=== PATIENT | female | born 1990 | race Caucasian/White ===

== ENCOUNTER → 2017-08-09 10:07 | Outpatient (CLI) | payer MEDICAID, SELFPAY ==
--- NOTE | 2017-08-09 12:59 | NEURO ---
NCS and/or EMG Patient Report Ordering Doctor: Devaughn Walters DATE OF SERVICE: 08/09/17 Jamar Jameson is a 26 year old female who presents for electrodiagnostic testing of the right upper limb. She has chief complaint of numbness and tingling in the right hand, primarily the third and fourth digits. Electrodiagnostic findings: On nerve conduction study, the right median motor nerve demonstrates normal distal latency amplitude and conduction velocity. Normal right ulnar motor response. Normal median ulnar F waves. Prolonged right median sensory distal latencies noted prolonged right median palmar response. Normal right ulnar and radial sensory responses. On needle EMG, all muscles tested in the right upper limb show no evidence of denervation with normal motor unit action potentials. Electrodiagnostic impression: This is an abnormal study. 1. Electrodiagnostic findings demonstrate right-sided median mononeuropathy. This is consistent with a mild right carpal tunnel syndrome. If any further questions, please not hesitate contact me.
== END ==
PROVIDERS: Visit Provider Orthopaedic Surgery
DX: G56.01 Carpal tunnel syndrome, right upper limb (principal)
CPT/HCPCS: 95886; 95910

== ENCOUNTER 2017-10-12 13:36 | Emergency (ER) | payer MEDICAID, SELFPAY ==
[2017-10-12 13:39] VITALS: BP 126/72; PULSE 96; RESP 18; TEMP 36.9; O2SAT 98; BMI 36.2
[2017-10-12] MEDS: HYDROmorphone 1 MG/ML Syringe IM (14:00)
--- NOTE | 2017-10-12 14:52 | ED.VISSUMM ---
- ER Visit Summary Date of Service: 10/12/17 Chief Complaint: [Abscess to forehead] History of Present Illness: The patient is a 27 F [presents to the emergency department with complaint of swelling to her forehead. Patient states that she was seen 2 days ago at [facility] and had the abscess the roof and patient was started on Bactrim. Patient this morning woke up in her left eye was swollen. She comes in for further evaluation. She denies any fever.] Physical Examination: [HEENT-PERRLA, EOMI. Cranial nerves II through XII grossly intact. TMs clear. Mucous membranes moist. No adenopathy. Patient has a soft tissue abscess over the left frontal scalp which is the roof and there is purulent debris extruding from the abscess. Area is tender to palpation. There is some faint erythema surrounding the suspected abscess. Patient is noted to have edema of the upper and lower eyelids on the left. No facial cellulitis. Cardiovascular-regular rate and rhythm without murmur or ectopy Lungs-clear to auscultation, chest wall stable without crepitus or subcu emphysema Abdomen-normoactive bowel sounds, soft, nontender, no rebound or rigidity, no peritoneal signs. Extremities-intact ?4, normal range of motion, normal pulses, atraumatic] Test Results: [None indicated] Emergency Department Course and Treatment: [I attempted to push on the suspected abscess to see if we can express any further purulent debris however patient did not tolerate this very well I did medicate her with a milligram of Dilaudid as she did not want me to locally anesthetize the area initially. Patient subsequently allowed me to push on the abscess and initially moderate amount of purulent debris was expressed however that she asked me to locally anesthetize the area and I used lidocaine total of 3 cc. Wound was cleansed with saline and using an 11 blade I made a 2 cm incision into the most fluctuant portion of the suspected abscess and again large amount of purulent debris expressed. I used curved hemostats to undermine the soft tissues. I irrigated the wound with saline. Patient tolerated procedure well.] Treatment Plan: [Patient will be started on Keflex and she is advised to continue with her Bactrim.] Disposition: [Discharged home in stable condition] Impression: [Soft tissue abscess forehead-with incision and drainage] This note was generated with Dragon dictation software. It may contain incorrect words, spelling, and punctuation that were not noted in review of the chart prior to signing ED Disposition - Plan for ED Patient: Chief Complaint: Abscess Referrals: Care Physician,No Primary [Primary Care Provider] -
--- NOTE | 2017-10-12 14:59 | ED.DEP ---
ED Disposition - Plan for ED Patient: Chief Complaint: Abscess Instructions: ED Abscess IandD Prescriptions: Cephalexin [Keflex] 500 mg PO Q6 #40 cap Referrals: Care Physician,No Primary [Primary Care Provider] - Mervin Angulo MD [STAFF PHYSICIAN] - 5-7 Days
[2017-10-12] MEDS: Cephalexin 250 MG Capsule 500 MG PO (15:12)
--- NOTE | 2017-10-12 15:13 | ED.DEP ---
ED Disposition - Plan for ED Patient: Chief Complaint: Abscess Instructions: ED Abscess IandD Prescriptions: Hydrocodone Bitart/Apap 5-325 [[place] 5MG-325MG] 1 tab PO Q4H PRN PRN 2 Days #10 tab PRN Reason: Pain Cephalexin [Keflex] 500 mg PO Q6 #40 cap Referrals: Mervin Angulo MD [STAFF PHYSICIAN] - 5-7 Days Care Physician,No Primary [Primary Care Provider] -
[2017-10-12 15:15] VITALS: BP 140/76; PULSE 90; RESP 16; O2SAT 100
== END 2017-10-12 15:16 | disposition home or self-care (01) ==
LOC: ED 15:02
PROVIDERS: Emergency Provider Emergency Medicine
DX: L02.01 Cutaneous abscess of face (principal); Z72.0 Tobacco use
CPT/HCPCS: 10060; 96372; 99284

== ENCOUNTER 2018-05-25 10:44 | Emergency (ER) | payer MEDICAID, SELFPAY ==
[2018-05-25 10:45] VITALS: BP 125/71; PULSE 69; RESP 16; TEMP 36.6; O2SAT 100; BMI 39.4
--- NOTE | 2018-05-25 11:29 | ED.VISSUMM ---
- ER Visit Summary Date of Service: 05/25/18 Chief Complaint: Rash History of Present Illness: The patient is a 27 F with a one-week history of red itchy rash to the right groin line and along her abdominal skin fold. Patient believes she may have ringworm. She is status post gastric bypass and has dropped a lot of weight. She is currently undergoing evaluation to have some of the extra skin removed. Patient be this is what causes the irritation and rash. Physical Examination: Vital signs unremarkable. Patient sitting upright in bed no acute distress. Heart is regular rate and rhythm. Lungs sounds clear. Abdomen is soft nontender. Skin examination reveals faint erythematous dry rash along the groin line on the right. This is consistent with tinea cruris. Test Results: [] Emergency Department Course and Treatment: Patient be given triamcinolone cream to apply topically. She was advised that this would take a few weeks to clear up. There is no evidence of secondary bacterial infection Treatment Plan: [] Disposition: Discharge Impression: Tinea cruris This note was generated with Dealer[employer] dictation software. It may contain incorrect words, spelling, and punctuation that were not noted in review of the chart prior to signing ED Disposition - Plan for ED Patient: Disposition: Home or Assisted Living Instructions: ED Candidiasis Cutaneous Prescriptions: Triamcinolone 0.5% Cream [Kenalog] 1 applic TOPICAL BID #1 tube Referrals: Radhames Gayle MD [STAFF PHYSICIAN] - As Needed
--- NOTE | 2018-05-25 11:34 | DCINST.ED_ITS ---
ED Disposition - Plan for ED Patient: Disposition: Home or Assisted Living Instructions: ED Candidiasis Cutaneous Prescriptions: Triamcinolone 0.5% Cream [Kenalog] 1 applic TOPICAL BID #1 tube Referrals: Radhames Gayle MD [STAFF PHYSICIAN] - As Needed
[2018-05-25 13:11] VITALS: TEMP 36.6
== END 2018-05-25 13:14 | disposition home or self-care (01) ==
PROVIDERS: Emergency Provider Emergency Medicine
DX: B35.6 Tinea cruris (principal); Z98.84 Bariatric surgery status; Z72.0 Tobacco use
CPT/HCPCS: 99282

== ENCOUNTER 2018-10-09 17:30 | Emergency (ER) | payer MEDICAID, SELFPAY ==
[2018-10-09 17:33] VITALS: BP 142/64; PULSE 90; RESP 85; TEMP 36.2; O2SAT 96; BMI 36.1
[2018-10-09 18:18] LABS: Absolute Lymphocyte Count 1.76 X10^3/ul (0.83-4.51); Absolute Neutrophil Count 6.6 X10^3/uL (2.0-7.7); Basophil# 0.04 X10^3/uL; Basophil% 0.4 % (0-1); Eosinophil# 0.25 X10^3/uL; Eosinophils% 2.7 % (0-5); Hematocrit 30.2 % (37-47); Hemoglobin 9.2 g/dl (12.0-15.0); Lymphocyte # 1.76 X10^3/ul (4.0); Lymphocyte % 18.9 % (19-41); Mean Corp Hgb Conc 30.5 g/gl (32-36); Mean Corpuscular Hgb 23.2 pg (27.0-32.0); Mean Corpuscular Volume 76.3 fL (81-99); Mean Platelet Vol. 9.4 fl (6.2-12.0); Monocyte# 0.63 X10^3/uL; Monocyte% 6.8 % (0-10); Neutrophil # 6.59 X10^3/uL (2.7-7.7); Platelet Count 337 K/mm3 (150-450); RBC Distribution Width CV 15.8 % (11.6-14.6); RBC Distribution Width SD 43.6 fl (35.1-43.9); Red Blood Count 3.96 M/mm3 (4.2-5.4); White Blood Count 9.3 K/mm3 (4.4-11.0)
[2018-10-09 18:20] LABS: Internal QC Validated? YES +Cl - CLEAR BKGD; Pregnancy, Serum, hCG Quali. NEGATIVE Negative
[2018-10-09 18:22] LABS: POSITIVE COUNT NO; POSITIVE DIFFERENTIAL NO; POSITIVE MORPHOLOGY NO
[2018-10-09 18:25] LABS: Anion Gap 6 (5-15); BUN 15 mg/dL (7-18); BUN/Creat Ratio 26.1 RATIO (10-20); Calcium,Total 8.7 mg/dL (8.5-10.1); Chloride 112 mmol/L (98-107); Creatinine, Serum 0.58 mg/dL (0.55-1.02); EST Glomerular Filtration Rate 132 mL/min (>60); Est Glom Filt Rate - Afr Amer 160 mL/min (>60); Glucose 91 mg/dL (74-106); Potassium 3.9 mmol/L (3.5-5.1); Sodium Level 142 mmol/L (136-145)
[2018-10-09] MEDS: Acetaminophen 500 MG Tablet 1000 MG PO (18:26)
[2018-10-09 18:27] LABS: Amphetamine Urine VISTA POSITIVE (<1000 ng/mL); Barbiturate Urine VISTA NEGATIVE (< 200 ng/mL); Benzodiazepine Urine VISTA NEGATIVE (< 200 ng/mL); Cocaine Urine VISTA NEGATIVE (< 300 ng/mL); Ecstacy Urine VISTA NEGATIVE (< 500 ng/mL); Methadone Urine VISTA NEGATIVE (< 300 ng/mL); PCP Urine VISTA NEGATIVE (< 25 ng/mL); THC Urine VISTA NEGATIVE (< 50 ng/mL); Vista UDS pH Range 5
[2018-10-09 18:31] LABS: Alcohol, Blood (Medical)-Serum < 3.0 mg/dL
[2018-10-09 18:40] VITALS: RESP 16
--- NOTE | 2018-10-09 18:48 | ED.RN ---
REPORT GIVEN TO [facility]
--- NOTE | 2018-10-09 18:54 | ED.VISSUMM ---
- ER Visit Summary Date of Service: 10/09/18 Chief Complaint: Suicidal ideation History of Present Illness: The patient is a 28 F presenting with suicidal ideation. Patient states she has been depressed. She has been out of her medication for the past week. She takes Paxil and Seroquel. She called the counseling center. They advised her they were unable to refill her medications over the phone. She states she has medications that are locked in an apartment that she cannot get to. They were prescribed by the [place]. She does have a history of previous suicide attempt in 2018 with overdose on Seroquel. She admits to methamphetamine abuse. Physical Examination: Vitals are stable. Patient is afebrile. Alert no acute distress. HEENT exam is unremarkable. Neck is supple. Lungs are clear and equal bilaterally. Heart is regular rate and rhythm. Abdomen is soft nontender nondistended. Extremities are unremarkable. Skin is warm and dry. No focal neurologic deficit. Depressed affect. Suicidal ideation Remainder of exam is unremarkable. Emergency Department Course and Treatment: CBC normal except for hemoglobin 9.2. Chemistries unremarkable. hCG negative. Tox positive for amphetamine. Alcohol negative. Discussed with counseling center for evaluation. Disposition: Per counseling center Impression: Suicidal ideation This note was generated with Yeex[employer] dictation software. It may contain incorrect words, spelling, and punctuation that were not noted in review of the chart prior to signing ED Disposition - Plan for ED Patient: Referrals: Care Physician,No Primary [Primary Care Provider] -
[2018-10-09 20:16] VITALS: RESP 13
[2018-10-09 21:10] VITALS: BP 113/47; PULSE 83; RESP 18; TEMP 36.9; O2SAT 96
[2018-10-09] MEDS: QUEtiapine 25 MG Tablet 75 MG PO (22:06)
[2018-10-09 22:12] VITALS: RESP 14
--- NOTE | 2018-10-09 22:21 | EKG12_ITS ---
Test Reason : Blood Pressure : / mmHG Vent. Rate : 073 BPM Atrial Rate : 073 BPM P-R Int : 162 ms QRS Dur : 088 ms QT Int : 392 ms P-R-T Axes : 053 068 026 degrees QTc Int : 431 ms Normal sinus rhythm Normal ECG Confirmed by SHAHRIAR ALCOCER, SAV ([id number]), photographic editor AMRIT HENLEY ([id number]) on 10/12/2018 10:52:30 AM Referred By: TL Confirmed By:TISH BESS MD
--- NOTE | 2018-10-09 22:24 | ED.RN ---
NO OLD EKGS IN MUSE
[2018-10-09 22:27] LABS: White Blood Cells 0 SEEN /hpf (0-5)
[2018-10-09 22:28] LABS: Bacteria 0 SEEN /hpf (None Seen); Red Blood Cells-Urine 0 SEEN /hpf (0-5)
[2018-10-09 22:30] LABS: Color, Urine Yellow (Yellow); Glucose, Dipstick Normal (Normal); Ketone-Dipstick Negative (Negative); Leukocyte Esterase-Dipstick 25 /ul (Negative); Nitrite-Dipstick Negative (Negative); Occult Blood-Urine Negative /ul (Negative); Protein-Dipstick 15 mg/dl (Negative); Specific Gravity, Urine 1.025 (1.002-1.030); Urine Clarity Clear (Clear); Urine Urobilinogen 4 mg/dl (Normal)
[2018-10-09 22:33] LABS: Urine Bilirubin Dipstick 1 mg/dL (Negative)
[2018-10-09 22:42] LABS: AST(SGOT) 14 U/L (15-37); Alanine Aminotransfer ALT/SGPT 16 U/L (13-56); Albumin, Serum 3.6 g/dL (3.2-5.0); Alkaline Phosphatase 80 U/L (45-117); Bilirubin, Direct 0.09 mg/dL (0.00-0.30); Globulin 3.4 g/dL (2.2-4.2)
[2018-10-09 22:47] LABS: Squamous Epithelial Cells - UA 0-5 SEEN /hpf (5-10)
[2018-10-09 22:49] LABS: Calcium Oxalate Crystals Ur 2+ /hpf (<or=2+); Mucous, Urine 2+ /hpf (<or=2+)
[2018-10-09 23:26] VITALS: RESP 13
[2018-10-10] VITALS (11 sets, daily range): BP systolic 104–120; BP diastolic 55–63; PULSE 62–95; RESP 14–18; O2SAT 98–100
--- NOTE | 2018-10-10 01:05 | ED.RN ---
AT 2200 [facility] CALLED THIS RN TO REQUEST LIVER PROFILE, COMPLETE UA AND EKG. DR. PIKE INFORMED. RESULTS PENDING. WILL CONTINUE TO MONITOR.
--- NOTE | 2018-10-10 04:46 | ED.RN ---
SEE DOWNTIME DOCUMENTATION FROM 0200 UNTIL [id number]
--- NOTE | 2018-10-10 09:27 | NURSING ---
CALLED [facility]. TALKED TO ASHLYN. NO UPDATES.
--- NOTE | 2018-10-10 09:27 | ED.RN ---
0800: pt sleeping without noted distress. Sitter in room.
--- NOTE | 2018-10-10 09:33 | NURSING ---
ANT, CRISIS, CALLED. PATIENT IS ACCEPTED AT [facility], BUT HAS A COUPLE PEOPLE AHEAD OF HER
[2018-10-10] MEDS: QUEtiapine 25 MG Tablet 75 MG PO (12:29)
--- NOTE | 2018-10-10 17:44 | NURSING ---
CALLED [facility] FOR AN UPDATE.
--- NOTE | 2018-10-10 18:04 | NURSING ---
CALLED [facility] FOR TRANSPORT. HALF HOUR ETA
== END 2018-10-10 18:36 ==
PROVIDERS: Emergency Provider Emergency Medicine
DX: R45.851 Suicidal ideations (principal); F32.9 Major depressive disorder, single episode, unspecified; Z91.5 Personal history of self-harm; F15.10 Other stimulant abuse, uncomplicated; Z79.899 Other long term (current) drug therapy; Z72.0 Tobacco use
CPT/HCPCS: 36415; 80048; 80076; 80307; 80320; 81001; 84703; 85025; 93005; 99284; G0480

== ENCOUNTER 2018-12-05 17:18 | Emergency (ER) | payer SELFPAY ==
[2018-12-05 17:19] VITALS: BP 139/71; PULSE 70; RESP 16; TEMP 36.1; O2SAT 100; BMI 33.2
--- NOTE | 2018-12-05 17:41 | ED.VISSUMM ---
- ER Visit Summary Date of Service: 12/05/18 Chief Complaint: Epigastric abdominal pain History of Present Illness: The patient is a 28 F history of prior gastric bypass and cholecystectomy. And a gastric bypass done around [address] Silvestre at [facility]. Patient had a postop ulcer that was diagnosed by endoscopy. She states she has pain almost daily for the last 3 years. Also has nausea and vomiting. No fever. No diarrhea. No melena. No this. She denies any abdominal trauma. Physical Examination: Young female. No acute distress. Vital signs are stable and afebrile. Patient H EENT exam unremarkable. Neck nontender. Lungs clear to auscultation bilaterally. Heart regular rhythm no murmur. Abdomen is soft. Epigastric tenderness. No rebound, guarding or rigidity. No hernias or masses. Nondistended. No signs of obstruction. Extremities patient moves all 4. Neurovascular intact. Neurologically she is awake and alert. Test Results: CBC shows no acute abnormality. White count of 6. Hemoglobin 12. Electrolytes normal. Normal creatinine gap. Normal liver enzymes. Normal lipase. Emergency Department Course and Treatment: Treated with IV fluids, Zofran, morphine and Protonix p.o. Repeat exam patient is doing well at 1905. Abdomen is benign. She and I discussed all of her test results and is currently being discharged home. Treatment Plan: Started on Protonix. Follow-up as needed. Disposition: Discharge Impression: Acute epigastric abdominal pain of uncertain etiology Status post gastric bypass This note was generated with Nexopia dictation software. It may contain incorrect words, spelling, and punctuation that were not noted in review of the chart prior to signing ED Disposition - Plan for ED Patient: Referrals: Care Physician,No Primary [Primary Care Provider] -
[2018-12-05 18:10] LABS: Absolute Lymphocyte Count 2.59 X10^3/uL (0.83-4.51); Absolute Neutrophil Count 3.5 X10^3/uL (2.0-7.7); Basophil# 0.05 X10^3/uL; Basophil% 0.7 % (0-1); Eosinophil# 0.21 X10^3/uL; Eosinophils% 3.1 % (0-5); Hematocrit 38.7 % (37-47); Hemoglobin 12.2 g/dL (12.0-15.0); Lymphocyte # 2.59 X10^3/ul (4.0); Mean Corp Hgb Conc 31.5 g/dL (32-36); Mean Corpuscular Hgb 27.1 pg (27.0-32.0); Mean Corpuscular Volume 85.8 fL (81-99); Mean Platelet Vol. 9.7 fl (6.2-12.0); Monocyte# 0.48 X10^3/uL; NRBC Flagged by Analyzer 0 % (0-5); Neutrophil # 3.47 X10^3/uL (2.7-7.7); Neutrophil % 50.9 % (47-70); POSITIVE MORPHOLOGY YES; Platelet Count 311 K/mm3 (150-450); RBC Distribution Width CV 20.3 % (11.6-14.6); RBC Distribution Width SD 61.1 fl (35.1-43.9); Red Blood Count 4.51 M/mm3 (4.2-5.4); White Blood Count 6.8 K/mm3 (4.4-11.0)
[2018-12-05] MEDS: 0.9% Normal Saline 1,000 ML 1000 ML IV (18:11)
[2018-12-05 18:12] LABS: AST(SGOT) 10 U/L (15-37); Alanine Aminotransfer ALT/SGPT 15 U/L (13-56); Albumin, Serum 3.6 g/dL (3.2-5.0); Alkaline Phosphatase 73 U/L (45-117); Anion Gap 4 (5-15); BUN 9 mg/dL (7-18); BUN/Creat Ratio 13.8 RATIO (10-20); Bilirubin, Direct 0.12 mg/dL (0.00-0.30); Calcium,Total 8.8 mg/dL (8.5-10.1); Chloride 112 mmol/L (98-107); Creatinine, Serum 0.65 mg/dL (0.55-1.02); EST Glomerular Filtration Rate 114 mL/min (>60); Est Glom Filt Rate - Afr Amer 137 mL/min (>60); Estimated Creatinine Clearance 91.73 ml/min; Globulin 3.3 g/dL (2.2-4.2); Glucose 85 mg/dL (74-106); Lipase 49 U/L (73-393); Potassium 3.7 mmol/L (3.5-5.1); Protein, Total 6.9 g/dL (6.4-8.2); Sodium Level 142 mmol/L (136-145)
[2018-12-05] MEDS: Morphine 4 MG/ML Syringe IV (18:12)
[2018-12-05] MEDS: Ondansetron 4 MG/2 ML Vial IV (18:12)
[2018-12-05] MEDS: Pantoprazole Sodium 40 MG Tablet PO (18:15)
[2018-12-05 18:16] LABS: Differential Indicated SCAN CRITERIA MET
[2018-12-05 18:40] LABS: Platelet Estimate ADEQUATE (ADEQ); Red Cell Morphology NORM C+C NORMAL (NORM C&C)
--- NOTE | 2018-12-05 19:08 | ED.DEP ---
ED Disposition - Plan for ED Patient: Disposition: Home or Assisted Living Instructions: ABDOMINAL PAIN, Unknown Cause, (Female) Prescriptions: Pantoprazole Sodium [Protonix] 40 mg PO DAILY #30 tab Prescription Printed Referrals: Robert Weber MD [STAFF PHYSICIAN] - 1 Week if not improving Additional Instructions: Follow-up with your doctor as needed. Return if you are feeling worse. The Protonix is a medication for your stomach and will help with both an ulcer and/or gastritis. 1 pill/day.
[2018-12-05 19:20] VITALS: BP 109/45; PULSE 66; RESP 16; O2SAT 97
== END 2018-12-05 19:21 | disposition home or self-care (01) ==
PROVIDERS: Emergency Provider Emergency Medicine
DX: R10.13 Epigastric pain (principal); R11.2 Nausea with vomiting, unspecified; Z98.84 Bariatric surgery status; Z90.49 Acquired absence of other specified parts of digestive tract; Z87.11 Personal history of peptic ulcer disease; Z72.0 Tobacco use
CPT/HCPCS: 80048; 80076; 83690; 85025; 96361; 96374; 96375; 99283; J7030; J2405

== ENCOUNTER 2023-02-09 14:27 | Emergency (ER) | payer MEDICAID, SELFPAY ==
[2023-02-09 14:28] VITALS: BP 121/75; PULSE 89; RESP 18; TEMP 35.9; O2SAT 98; BMI 42.3
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
[2023-02-09] MEDS: Acetaminophen 325 MG Tablet 650 MG PO (14:56)
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
== END 2023-02-09 15:48 | disposition home or self-care (01) ==
PROVIDERS: Emergency Provider Emergency Medicine; Visit Provider Emergency Medicine
DX: S13.4XXA Sprain of ligaments of cervical spine, initial encounter (principal); R51.9 Headache, unspecified; V49.50XA Passenger injured in collision with unspecified motor vehicles in traffic accident, initial encounter; F17.210 Nicotine dependence, cigarettes, uncomplicated
CPT/HCPCS: 72040; 99282

== ENCOUNTER → 2024-08-27 | Outpatient (CLI) | payer MEDICAID, SELFPAY ==
[2024-08-27 13:02] LABS: Absolute Lymphocyte Count 2.38 X10^3/uL (0.83-4.51); Absolute Neutrophil Count 4.1 X10^3/uL (2.0-7.7); Basophil# 0.07 X10^3/uL; Eosinophil# 0.14 X10^3/uL; Hematocrit 38.2 % (37-47); Lymphocyte # 2.38 X10^3/ul (0.83-4.51); Lymphocyte % 33.2 % (19-41); Mean Corpuscular Hgb 31.9 pg (27.0-32.0); Mean Corpuscular Volume 93.6 fL (81-99); Mean Platelet Vol. 9.3 fl (6.2-12.0); Monocyte# 0.46 X10^3/uL; Monocyte% 6.4 % (0-10); NRBC Flagged by Analyzer 0 % (0-5); Neutrophil % 57.1 % (47-70); Platelet Count 297 K/mm3 (150-450); RBC Distribution Width CV 12.2 % (11.6-14.6); RBC Distribution Width SD 41.9 fl (35.1-43.9); Red Blood Count 4.08 M/mm3 (4.2-5.4); White Blood Count 7.2 K/mm3 (4.4-11.0)
[2024-08-27 15:03] LABS: Hemoglobin A1c 4.7 % (<=5.6)
[2024-08-27 15:21] LABS: ALB/GLOB Ratio 1.6 RATIO (0.9-2.4); AST(SGOT) 18 U/L (<=31); Alanine Aminotransfer ALT/SGPT 14 U/L (<=34); Albumin, Serum 4.1 g/dL (3.5-5.0); Alkaline Phosphatase 53 U/L (35-104); Anion Gap 12 (5-15); BUN 15 mg/dL (4-19); BUN/Creat Ratio 26.1 RATIO (10-20); Calcium,Total 9.4 mg/dL (7.6-11.0); Carbon Dioxide 19.6 mmol/L (21.0-32.0); Chloride 105 mmol/L (98-108); Creatinine, Serum 0.56 mg/dL (0.70-1.20); EST Glomerular Filtration Rate 123 (>60); Globulin 2.5 g/dL (2.2-4.2); Glucose 92 mg/dL (70-99); Iron 89 ug/dL (50-170); Iron Binding Capacity,Unsat 135 ug/dL (228-428); Potassium 3.9 mmol/L (3.3-5.1); Protein, Total 6.7 g/dL (5.9-8.4); Sodium Level 137 mmol/L (133-145); Total Bilirubin 0.26 mg/dL (0.00-1.30)
[2024-08-27 15:27] LABS: Iron Binding Capacity,Total 224 ug/dL (250-450); PERCENT IRON SATURATION 39.7 % (13-59)
[2024-08-27 15:47] LABS: Ferritin 70 ng/mL (22-378)
[2024-08-27 15:50] LABS: Vitamin B12 3557 pg/mL (180-914)
== END | disposition home or self-care (01) ==
LOC: VSLAB 11:46
PROVIDERS: PCP Nurse Practitioner Family; Visit Provider Nurse Practitioner Family
DX: D50.9 Iron deficiency anemia, unspecified (principal); E53.8 Deficiency of other specified B group vitamins; Z13.1 Encounter for screening for diabetes mellitus
CPT/HCPCS: 36415; 80053; 82607; 82728; 83036; 83540; 83550; 85025

== ENCOUNTER → 2024-11-14 | Outpatient (CLI) | payer MEDICAID, SELFPAY ==
[2024-11-14 16:39] LABS: Hematocrit 39.9 % (37-47); Hemoglobin 13.5 g/dL (12.0-15.0); Immature Granulocytes Count 0.020 X10^3/uL (0.0-0.0); Mean Corp Hgb Conc 33.8 g/dL (32-36); Mean Corpuscular Volume 92.6 fL (81-99); Mean Platelet Vol. 9.4 fl (6.2-12.0); NRBC Flagged by Analyzer 0 % (0-5); Platelet Count 283 K/mm3 (150-450); RBC Distribution Width CV 12.1 % (11.6-14.6); RBC Distribution Width SD 41.0 fl (35.1-43.9); Red Blood Count 4.31 M/mm3 (4.2-5.4); White Blood Count 9.6 K/mm3 (4.4-11.0)
[2024-11-14 18:00] LABS: AST(SGOT) 15 U/L (<=31); Alanine Aminotransfer ALT/SGPT 9 U/L (<=34); Albumin, Serum 4.3 g/dL (3.5-5.0); Alkaline Phosphatase 61 U/L (35-104); Anion Gap 14 (5-15); BUN 9 mg/dL (4-19); BUN/Creat Ratio 15.9 RATIO (10-20); Calcium,Total 9.8 mg/dL (7.6-11.0); Carbon Dioxide 20.7 mmol/L (21.0-32.0); Chloride 104 mmol/L (98-108); Ferritin 98 ng/mL (22-378); Globulin 2.7 g/dL (2.2-4.2); Glucose 88 mg/dL (70-99); Iron 37 ug/dL (50-170); Iron Binding Capacity,Total 252 ug/dL (250-450); Iron Binding Capacity,Unsat 215 ug/dL (228-428); Potassium 3.9 mmol/L (3.3-5.1)
--- OUTSIDE RECORDS SUMMARY | 2024-11-14 21:39 | XMS RPT_ITS | CCD ---
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 abdominal tissue is difficult to exercise with and she would like it removed now if possible and is accepting of the risk of wound healing complications. Patient reports rashes underneath her abdominal pannus as well as the need for powders which help from time to time (nystatin powder). She has pain from poorly fitting close secondary to their skin redundancy. She also has lower back pain from the pannus. She does not have any history of bleeding or clotting problems personally or within her family. No history of problems with anesthesia. 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 She has not had any children and is not interested at this time. Patient is a former smoker and quit last week. She is on Chantix. We discussed smoking cessation ROS General General: Yes good health; No fatigue, fever(s) or weight loss HENMT HENMT: No rhinitis, sore throat/mouth sore, nasal congestion, contacts or glaucoma Endo Endocrine: No thyroid disease, polydipsia, heat intolerance, cold intolerance, hepatitis or excessive urine Skin Skin: No Bleeding, bruising, changing moles or suspicious lesion Musc Musculoskeletal: No joint pain, joint stiffness, muscle weakness, back pain, osteoarthritis or Muscle aches/ myalgia Neuro Neurological: No headache(s), No lightheadedness and No numbness Cardio Cardiovascular: No chest pain, pacemaker, fatigue or shortness of breat with exertion Psych Psychiatric: No depression, claustrophobia or anxiety Resp Respiratory: No spitting up, shortness of breath, sleep apnea, asthma, emphysema, TB, Cough or Smoker Gastro Gastrointestinal: No diarrhea, constipation, blood in stool, nausea, vomiting or abdominal bloating Ramsey Hematologic: No anemia, No bleeding and No abnormal bleeding Genitourinary: No urinary frequency, blood in urine or incontinence Exam Details Abdomen No hernias present Excess abdominal tissue vertically and horizontal Minimal diastases Patient would be a good candidate for a [id number] panniculectomy. Her pannus overhangs the pubic symphysis approximately 5 cm Coding Level of Care Code Off vis,new,level 3 Diagnoses Panniculitis M79.3 Assessment and Plan (No Qualifiers) Assessment and Plan (1) Panniculitis: Status: Acute Plan: Discussed continued smoking cessation Follow-up in 5 weeks with a nicotine test I talked her about the risks, benefits, and alternatives to a panniculectomy at a BMI of 40. My cuto (more content not included)... Normal [facility] Absolute lymphocyte countOrd ered By: Falguni Shanks on 08-27-2024 Lymphocytes Auto (Unsp spec) [#/Vol] 2.38 10*3/uL 0.83-4.51 [facility] Absolute neutrophil countOrd ered By: Falguni Shanks on 08-27-2024 Neutrophils (Bld) [#/Vol] 4.1 10*3/uL 2.0-7.7 [facility] Anion gap in Serum or Plasma Ordered By: Falguni Shanks on 08-27-2024 Anion gap [Moles/Vol] 12 mmol/L 5-15 [facility] Automated lymphocyte count a s percentage of total leukocytesOrdered By: Falguni Shanks on 08-27-2024 Lymphocytes/100 WBC Auto (Unsp spec) 33.2 % 19-41 [facility] BUN/creatinine ratioOrdered By: Falguni Shanks on 08-27-2024 Urea nitrogen/Creatinine [Mass ratio] 26.1 mg/mg High 10-20 [facility] Basophil percentageOrdered B y: Falguni Shanks on 08-27-2024 Basophils/100 WBC (Bld) 1.0 % 0-1 [facility] Bilirubin, totalOrdered By: Falguni Shanks on 08-27-2024 Bilirubin [Mass/Vol] 0.26 mg/dL 0.00-1.30 [facility] CBC W/Diff, Automatedon 08-15 Absolute Lymph 2.38 X10 3/uL Normal 0.83-4.51 [facility] Comment on above: Performed By: #### L 501.9985, L503.6550, L500.4050, L503.6030, L100.0100, L503.0106 #### [facility] [address] [place], [address] Absolute Neut 4.1 X10 3/uL Normal 2.0-7.7 [facility] Comment on above: Performed By: #### L 501.9985, L503.6550, L500.4050, L503.6030, L100.0100, L503.0106 #### [facility] [address] [place], [address] Basophils/100 WBC (Bld) 1.0 % Normal 0-1 [facility] Comment on above: Performed By: #### L 501.9985, L503.6550, L500.4050, L503.6030, L100.0100, L503.0106 #### [facility] [address] [place], [address] Eosinophils/100 WBC (Bld) 2.0 % Normal 0-5 [facility] Comment on above: Performed By: #### L 501.9985, L503.6550, L500.4050, L503.6030, L100.0100, L503.0106 #### [facility] [address] [place], [address] Erythrocyte distribution width (RBC) [Ratio] 12.2 % Normal 11.6-14.6 [facility] Comment on above: Performed By: #### L 501.9985, L503.6550, L500.4050, L503.6030, L100.0100, L503.0106 #### [facility] [address] [place], [address] Hematocrit (Bld) [Volume fraction] 38.2 % Normal 37-47 [facility] Comment on above: Performed By: #### L 501.9985, L503.6550, L500.4050, L503.6030, L100.0100, L503.0106 #### [facility] [address] [place], [address] Hemoglobin (Bld) [Mass/Vol] 13.0 g/dL Normal 12.0-15.0 [facility] Comment on above: Performed By: #### L 501.9985, L503.6550, L500.4050, L503.6030, L100.0100, L503.0106 #### [facility] [address] [place], [address] IG% 0.300 Normal 0.0-0.9 [facility] Comment on above: Result Comment: IG% - Immature Granulocytes (promyelocytes, myelocytes and metamyelocytes) > 1% indicates that a LEFT SHIFT is Present. Performed By: #### L 501.9985, L503.6550, L500.4050, L503.6030, L100.0100, L503.0106 #### [facility] [address] [place], [address] Lymphocytes/100 WBC (Bld) 33.2 % Normal 19-41 [facility] Comment on above: Performed By: #### L 501.9985, L503.6550, L500.4050, L503.6030, L100.0100, L503.0106 #### [facility] [address] [place], [address] MCH (RBC) [Entitic mass] 31.9 pg Normal 27.0-32.0 [facility] Comment on above: Performed By: #### L 501.9985, L503.6550, L500.4050, L503.6030, L100.0100, L503.0106 #### [facility] [address] [place], [address] MCHC (RBC) [Mass/Vol] 34.0 g/dL Normal 32-36 [facility] Comment on above: Performed By: #### L 501.9985, L503.6550, L500.4050, L503.6030, L100.0100, L503.0106 #### [facility] [address] [place], [address] MCV (RBC) [Entitic vol] 93.6 fL Normal 81-99 [facility] Comment on above: Performed By: #### L 501.9985, L503.6550, L500.4050, L503.6030, L100.0100, L503.0106 #### [facility] [address] [place], [address] Monocytes/100 WBC (Bld) 6.4 % Normal 0-10 [facility] Comment on above: Performed By: #### L 501.9985, L503.6550, L500.4050, L503.6030, L100.0100, L503.0106 #### [facility] [address] [place], [address] Neutrophils/100 WBC (Bld) 57.1 % Normal 47-70 [facility] Comment on above: Performed By: #### L 501.9985, L503.6550, L500.4050, L503.6030, L100.0100, L503.0106 #### [facility] [address] [place], [address] Nucleated RBC (Bld) [#/Vol] 0 10*3/uL Normal 0-5 [facility] Comment on above: Performed By: #### L 501.9985, L503.6550, L500.4050, L503.6030, L100.0100, L503.0106 #### [facility] [address] [place], [address] Platelet mean volume (Bld) [Entitic vol] 9.3 fL Normal 6.2-12.0 [facility] Comment on above: Performed By: #### L 501.9985, L503.6550, L500.4050, L503.6030, L100.0100, L503.0106 #### [facility] [address] [place], [address] Platelets (Bld) [#/Vol] 297 10*3/uL Normal 150-450 [facility] Comment on above: Performed By: #### L 501.9985, L503.6550, L500.4050, L503.6030, L100.0100, L503.0106 #### [facility] [address] [place], [address] RBC (Bld) [#/Vol] 4.08 10*6/uL Low 4.2-5.4 [facility] Comment on above: Performed By: #### L 501.9985, L503.6550, L500.4050, L503.6030, L100.0100, L503.0106 #### [facility] [address] [place], [address] RDW SD 41.9 fl Normal 35.1-43.9 [facility] Comment on above: Performed By: #### L 501.9985, L503.6550, L500.4050, L503.6030, L100.0100, L503.0106 #### [facility] [address] [place], [address] WBC (Bld) [#/Vol] 7.2 10*3/uL Normal 4.4-11.0 [facility] Comment on above: Performed By: #### L 501.9985, L503.6550, L500.4050, L503.6030, L100.0100, L503.0106 #### [facility] [address] [place], [address] Carbon dioxide, total [Moles /volume] in Central venous bloodOrdered By: Falguni Shanks on 08-27-2024 CO2 [Moles/Vol] 19.6 mmol/L Low 21.0-32.0 [facility] Chloride assayOrdered By: Evelin Shanks on 08-27-2024 Chloride [Moles/Vol] 105 mmol/L 98-108 [facility] Comprehensive Metabolic Prof ilon 08-27-2024 Albumin [Mass/Vol] 4.1 g/dL Normal 3.5-5.0 [facility] Comment on above: Performed By: #### L 501.9985, L503.6550, L500.4050, L503.6030, L100.0100, L503.0106 #### [facility] [address] [place], [address] Albumin/Globulin [Mass ratio] 1.6 {ratio} Normal 0.9-2.4 [facility] Comment on above: Performed By: #### L 501.9985, L503.6550, L500.4050, L503.6030, L100.0100, L503.0106 #### [facility] [address] [place], [address] ALK PHOS 53 U/L Normal 35-104 [facility] Comment on above: Performed By: #### L 501.9985, L503.6550, L500.4050, L503.6030, L100.0100, L503.0106 #### [facility] [address] [place], [address] ALT [Catalytic activity/Vol] 14 U/L Normal <=34 [facility] Comment on above: Performed By: #### L 501.9985, L503.6550, L500.4050, L503.6030, L100.0100, L503.0106 #### [facility] [address] [place], [address] AST [Catalytic activity/Vol] 18 U/L Normal <=31 [facility] Comment on above: Performed By: #### L 501.9985, L503.6550, L500.4050, L503.6030, L100.0100, L503.0106 #### [facility] [address] [place], [address] Bilirubin [Mass/Vol] 0.26 mg/dL Normal 0.00-1.30 [facility] Comment on above: Performed By: #### L 501.9985, L503.6550, L500.4050, L503.6030, L100.0100, L503.0106 #### [facility] [address] [place], [address] BUN/CRE 26.1 RATIO High 10-20 [facility] Comment on above: Performed By: #### L 501.9985, L503.6550, L500.4050, L503.6030, L100.0100, L503.0106 #### [facility] [address] [place], [address] Calcium [Mass/Vol] 9.4 mg/dL Normal 7.6-11.0 [facility] Comment on above: Performed By: #### L 501.9985, L503.6550, L500.4050, L503.6030, L100.0100, L503.0106 #### [facility] [address] [place], [address] Chloride [Moles/Vol] 105 mmol/L Normal 98-108 [facility] Comment on above: Performed By: #### L 501.9985, L503.6550, L500.4050, L503.6030, L100.0100, L503.0106 #### [facility] [address] [place], [address] CO2 [Moles/Vol] 19.6 mmol/L Low 21.0-32.0 [facility] Comment on above: Performed By: #### L 501.9985, L503.6550, L500.4050, L503.6030, L100.0100, L503.0106 #### [facility] [address] [place], [address] Creatinine [Mass/Vol] 0.56 mg/dL Low 0.70-1.20 [facility] Comment on above: Performed By: #### L 501.9985, L503.6550, L500.4050, L503.6030, L100.0100, L503.0106 #### [facility] [address] [place], [address] GAP 12 Normal 5-15 [facility] Comment on above: Performed By: #### L 501.9985, L503.6550, L500.4050, L503.6030, L100.0100, L503.0106 #### [facility] [address] [place], [address] GFR/1.73 sq M.predicted among non-blacks MDRD (S/P/Bld) [Vol rate/Area] 123 mL/min/{1.73_m2} Normal >60 [facility] Comment on above: Result Comment: mL/m in/1.73m2 CKD-EPI Creatinine Equation (2020) Performed By: #### L 501.9985, L503.6550, L500.4050, L503.6030, L100.0100, L503.0106 #### [facility] [address] [place], [address] Globulin (S) [Mass/Vol] 2.5 g/dL Normal 2.2-4.2 [facility] Comment on above: Performed By: #### L 501.9985, L503.6550, L500.4050, L503.6030, L100.0100, L503.0106 #### [facility] [address] [place], [address] Glucose [Mass/Vol] 92 mg/dL Normal 70-99 [facility] Comment on above: Performed By: #### L 501.9985, L503.6550, L500.4050, L503.6030, L100.0100, L503.0106 #### [facility] [address] [place], [address] Potassium [Moles/Vol] 3.9 mmol/L Normal 3.3-5.1 [facility] Comment on above: Performed By: #### L 501.9985, L503.6550, L500.4050, L503.6030, L100.0100, L503.0106 #### [facility] [address] [place], [address] Sodium [Moles/Vol] 137 mmol/L Normal 133-145 [facility] Comment on above: Performed By: #### L 501.9985, L503.6550, L500.4050, L503.6030, L100.0100, L503.0106 #### [facility] [address] [place], [address] T PROT 6.7 g/dL Normal 5.9-8.4 [facility] Comment on above: Performed By: #### L 501.9985, L503.6550, L500.4050, L503.6030, L100.0100, L503.0106 #### [facility] [address] [place], [address] Urea nitrogen [Mass/Vol] 15 mg/dL Normal 4-19 [facility] Comment on above: Performed By: #### L 501.9985, L503.6550, L500.4050, L503.6030, L100.0100, L503.0106 #### [facility] [address] [place], [address] Eosinophil percentageOrdered By: Falguni Shanks on 08-27-2024 Eosinophils/100 WBC (Bld) 2.0 % 0-5 [facility] Erythrocyte distribution wid th ratioOrdered By: Falguni Shanks on 08-27-2024 Erythrocyte distribution width (RBC) [Ratio] 12.2 % 11.6-14.6 [facility] Erythrocyte distribution wid th standard deviationOrdered By: Falgunidona Shanks on 08-27-2024 Erythrocyte distribution width (RBC) [Ratio] 41.9 fl 35.1-43.9 [facility] Ferritinon 08-27-2024 Ferritin [Mass/Vol] 70 ng/mL Normal 22-378 [facility] Comment on above: Performed By: #### L 501.9985, L503.6550, L500.4050, L503.6030, L100.0100, L503.0106 #### [facility] [address] [place], [address] Glomerular filtration rate ( GFR) estimation/1.73 sq m using serum, plasma, or whole bOrdered By: Falguni Shanks on 08-27-2024 GFR/1.73 sq M.predicted among non-blacks MDRD (S/P/Bld) [Vol rate/Area] 123 mL/min/{1.73_m2} >60 [facility] Comment on above: mL/min/1.73m2 CKD-EP I Creatinine Equation (2020) Hematocrit Auto (Bld) [Volum e fraction]Ordered By: Falguni Shanks on 08-27-2024 Hematocrit (Bld) [Volume fraction] 38.2 % 37-47 [facility] Hemoglobin A1con 08-27-2024 HbA1c (Bld) [Mass fraction] 4.7 % Normal <=5.6 [facility] Comment on above: Result Comment: Norm al < 5.7 % Prediabetic 5.7 - 6.4 % Diabetic >or= 6.5 % Please note range changes. Performed By: #### L 501.9985, L503.6550, L500.4050, L503.6030, L100.0100, L503.0106 #### [facility] [address] [place], [place], [id number] Hemoglobin A1c percentageOrd ered By: Falguni Shansk on 08-27-2024 HbA1c (Bld) [Mass fraction] 4.7 % <5.7 [facility] Comment on above: Normal < 5.7 % Predi abetic 5.7 - 6.4 % Diabetic >or= 6.5 % Please note range changes. Hemoglobin measurementOrdere d By: Falguni Shanks on 08-27-2024 Hemoglobin (Bld) [Mass/Vol] 13.0 g/dL 12.0-15.0 [facility] Immature granulocytes/100 WB C Auto (Bld)Ordered By: Falguni Shanks on 08-27-2024 Immature granulocytes/100 WBC (Bld) 0.300 % 0.0-0.9 [facility] Comment on above: IG% - Immature Granu locytes (promyelocytes, myelocytes and metamyelocytes) > 1% indicates that a LEFT SHIFT is Present. Iron measurement (mass/mass) Ordered By: Falguni Shanks on 08-27-2024 Iron (Unsp spec) [Mass/Mass] 89 ug/dL 50-170 [facility] Iron+Iron Binding Capacityon 08-27-2024 TIBC 224 ug/dL Low 250-450 [facility] Comment on above: Performed By: #### L 501.9985, L503.6546, L500.4050, L503.6030, L100.0100, L503.0106 #### [facility] [address] [place], [address] Laboratory - Chemistry and C hemistry - challengeOrdered By: Falguni Shanks on 08-27-2024 AST [Catalytic activity/Vol] 18 U/L <32 [facility] MCV (mean corpuscular volume ) determinationOrdered By: Falguni Shanks on 08-27-2024 MCV (RBC) [Entitic vol] 93.6 fL 81-99 [facility] Mean corpuscular hemoglobin (MCH) determinationOrdered By: Falguni Shanks on 08-27-2024 MCH (RBC) [Entitic mass] 31.9 pg 27.0-32.0 [facility] Mean corpuscular hemoglobin concentration (MCHC) determinationOrdered By: Falguni Shanks on 08-27-2024 MCHC (RBC) [Mass/Vol] 34.0 g/dL 32-36 [facility] Mean platelet volume determi nationOrdered By: Falguni Shanks on 08-27-2024 Platelet mean volume (Bld) [Entitic vol] 9.3 fL 6.2-12.0 [facility] Monocyte percentageOrdered B y: Falguni Shanks on 08-27-2024 Monocytes/100 WBC (Bld) 6.4 % 0-10 [facility] Neutrophil percentageOrdered By: Falguni Shanks on 08-27-2024 Neutrophils/100 WBC (Bld) 57.1 % 47-70 [facility] No Panel InformationOrdered By: Falguni Shanks on 08-27-2024 Unsaturated Iron Binding Capacity 135 ug/dL Low 228-428 [facility] Nucleated red blood cell per centageOrdered By: Falguni Shanks on 08-27-2024 Nucleated RBC/100 WBC (Bld) [Ratio] 0 % 0-5 [facility] Platelet countOrdered By: Evelin Shanks on 08-27-2024 Platelets (Bld) [#/Vol] 297 10*3/uL 150-450 [facility] Potassium measurement (mass/ volume)Ordered By: Falguni Shanks on 08-27-2024 Potassium (Unsp spec) [Mass/Vol] 3.9 mmol/L 3.3-5.1 [facility] RBC Auto (Bld) [#/Vol]Ordere d By: Falguni Shanks on 08-27-2024 RBC (Bld) [#/Vol] 4.08 10*6/uL Low 4.2-5.4 [facility] Serum creatinine measurement (mass/volume)Ordered By: Falguni Shanks on 08-27-2024 Creatinine [Mass/Vol] 0.56 mg/dL Low 0.70-1.20 [facility] Serum globulin measurementOr dered By: Falguni Shanks on 08-27-2024 Globulin (S) [Mass/Vol] 2.5 g/dL 2.2-4.2 [facility] Serum glucose measurement (m ass/volume)Ordered By: Falguni Shanks on 08-27-2024 Glucose [Mass/Vol] 92 mg/dL 70-99 [facility] Serum or plasma alanine rebollar otransferase (ALT) measurementOrdered By: Falguni Shanks 08-27-2024 ALT [Catalytic activity/Vol] 14 U/L <35 [facility] Serum or plasma albumin ronni urement (mass/volume)Ordered By: Falguni Shanks 08-27-2024 Albumin [Mass/Vol] 4.1 g/dL 3.5-5.0 [facility] Serum or plasma albumin/glob ulin mass ratioOrdered By: Falguni Shanks 08-27-2024 Albumin/Globulin [Mass ratio] 1.6 {ratio} 0.9-2.4 [facility] Serum or plasma alkaline marcelo sphatase measurementOrdered By: Falguni Shanks 08-27-2024 ALP [Catalytic activity/Vol] 53 U/L 35-104 [facility] Serum or plasma calcium ronni urement (mass/volume)Ordered By: Falguni Shanks 08-27-2024 Calcium [Mass/Vol] 9.4 mg/dL 7.6-11.0 [facility] Serum or plasma ferritin negra surement (mass/volume)Ordered By: Falguni Shanks on 08-27-2024 Ferritin [Mass/Vol] 70 ng/mL 22-378 [facility] Serum or plasma iron saturat ion measurement (mass fraction)Ordered By: Falguni Shakns on 08-27-2024 Iron saturation [Mass fraction] 39.7 % 13-59 [facility] Comment on above: Previous reported re sult: 40.0 %Edited by: SARA on 08/27/24:1527 AMENDED REPORT 08/27/24 1527 IRON SATURATION previously reported as: 40.0 % Serum or plasma urea nitroge n measurement (mass/volume)Ordered By: Falguni Shanks on 08-27-2024 Urea nitrogen [Mass/Vol] 15 mg/dL 4-19 [facility] Sodium levelOrdered By: Ivan Shanks on 08-27-2024 Sodium [Moles/Vol] 137 mmol/L 133-145 [facility] Total proteinOrdered By: Luis Shanks on 08-27-2024 Protein [Mass/Vol] 6.7 g/dL 5.9-8.4 [facility] Vitamin B12on 08-27-2024 Cobalamin (Vitamin B12) [Mass/Vol] 3557 pg/mL High 180-914 [facility] Comment on above: Performed By: #### L 501.9985, L503.6550, L500.4050, L503.6030, L100.0100, L503.0106 #### [facility] [place], [address] Vitamin B12 ser/plasOrdered By: Falguni Shanks on 08-27-2024 Cobalamin (Vitamin B12) [Mass/Vol] 3557 pg/mL High 180-914 [facility] White blood cell (WBC) count Ordered By: Falguni Shanks on 08-27-2024 WBC (Bld) [#/Vol] 7.2 10*3/uL 4.4-11.0 [facility] OPERATIVE PROCEDURESon 07-08 OPERATIVE PROCEDURES [facility] OPERATIVE REPORT NAME ACCOUNT SEX AGE ADMIT DISCHARGE PT MED. RECORD# NUMBER DATE DATE TYPE ZACK JAMESON [id number] F 33 06/26/24 2 L [id number] ROOM: [facility] DATE OF : 1990 DICTATING PHYSICIAN: Preeti Avina DATE OF SURGERY: June 26, 2024 SURGEON: Preeti Avina MD EMAIL MARKETING ASSISTANT: Sanchez Jerome CSA ANESTHESIOLOGIST: Stewart Hayes CRNA ANESTHETIC: General endotracheal with 1% lidocaine and 0.5% Marcaine without epinephrine locally. PREOPERATIVE DIAGNOSIS: Back soft tissue lesion. POSTOPERATIVE DIAGNOSIS: Back soft tissue lesion. OPERATION PERFORMED: Excisional biopsy. COMPLICATIONS: None. ESTIMATED BLOOD LOSS: 7 mL. DRAINS: None. SPECIMENS: Back soft tissue lesion. SIGNIFICANT FINDINGS: The lesion measured 5 cm x 4 cm. The lesion was grossly entirely excised. The lesion was grossly consistent with adipose tissue. DESCRIPTION OF OPERATION: Following the initiation of general endotracheal anesthesia, the patient was sterilely prepped and draped in the usual sterile left lateral decubitus position. Approximately a 4 cm incision was proposed over the palpable back soft tissue mass. The incision was orientated to be parallel to the spine. The proposed incision site was anesthetized with 1% lidocaine and 0.5% Marcaine without epinephrine locally. The incision was initiated using a 15 blade scalpel. The incision was completed using electrocautery. Electrocautery was then used to dissect down to the mass. The mass was grossly consistent with adipose tissue. It was completely grossly Page 1 of 2 ZACK JAMESON Operative Report ZACK JAMESON : 1990 excised intact utilizing both electrocautery and blunt dissection. It was passed off the table and measured. It measured approximately 5 cm x 4 cm, and it was packaged to be sent to Pathology. The wound was irrigated with copious amounts of saline. Hemostasis was achieved using electrocautery. The deep soft tissue was reapproximated to obliterate the potential space using interrupted 2-0 Vicryl sutures. The dermis was reapproximated using interrupted 4-0 Vicryl sutures. The skin was closed using running 5-0 Monocryl. All instrument, needle and sponge counts were correct x2. The wounds were appropriately dressed and bandaged. The patient was then returned to the supine position, awakened, extubated, and taken to the PACU in good and stable condition. DISCHARGE INSTRUCTIONS: Disposition: Home. Diet: Regular. Activity: Regular. Medications: The patient was given Percocet as needed for pain and instructed to resume any previous home medications. Work: The patient was given an excused absence from work until July 01, 2024. Follow up with Dr. Avina in the clinic on July 12, 2024. Dictated By: Preeti Avina MD 06/26/24 08:29 JOB #: [id number] Transcribed By: geoffrey 06/26/24 08:49 Electronically signed by: E-SIGN DR. AVINA 07/08/24 12:25 Page 2 of 2 ZACK JAMESON Operative Report Normal [facility] Final Surgical Pathology Rep [facility] 06-28-2024 Final Surgical Pathology Report . Pathology Reports Accession: Collected Date/Time: Received Date/Time: Pathologist: [id number] 06/26/2024 07:50 EDT 06/27/2024 10:23 EDT MD FERN BAUER Final Surgical Pathology Report DIAGNOSIS: SOFT TISSUE, BACK, EXCISION: - LIPOMA COMMENT: [facility] [id number] CLINICAL INFORMATION: BENIGN NEOPLASM OF SOFT TISSUE OF BACK SPECIMEN: A SOFT TISSUE, BACK GROSS DESCRIPTION: All parts labelled with patient name and [id number] Received in formalin labelled back soft tissue Is a yellow smooth portion of adipose tissue measuring 4.7 x 4 x 1.5 cm. Tissue is sectioned to reveal yellow, glistening, homogeneous cut surfaces with no areas of hemorrhage or necrosis identified. RS-1 Jersey Wade, Pathologists' Actuary (ASCP) Performed by JERSEY WADE MICROSCOPIC DESCRIPTION: The microscopic examination is performed, except in the case of Gross Only. Verified by Pathology Report verified by [facility] FERN BAUER MD Sign out Date: 06/28/2024 14:04 Performing Lab: [facility], [address] [place] [address] Pathology Dept Disclaimer If ancillary studies were utilized, the following Laboratory Developed Test (LDT) disclaimer will apply: Under CLIA requirements, [facility] Pathology Laboratory is qualified to perform high complexity testing. For all ancillary stains, positive and negative controls stain appropriately. Performance characteristics of immunohistochemical and chromogenic in-situ hybridization tests have been determined by [facility] Pathology Laboratory. These tests are used for clinical purposes, They should not be regarded as investigational or for research. . Normal [facility] SERUM QUALon 06-26 EXTERNAL QC DONE? YES Normal [facility] Comment on above: Performed By: #### 2 58845 #### [facility],[address] [place] [address] INTERNAL QC PASS Normal [facility] Comment on above: Performed By: #### 2 51271 #### [facility],[address] [place], [place] [address] SER Negative Normal NEGATIVE [facility] Comment on above: Performed By: #### 2 39650 #### [facility],[address] [place] [address] Vocational Services Specialist Cytology Reporton 2024 Vocational Services Specialist Cytology Report . Pathology Reports Accession: Collected Date/Time: Received Date/Time: Pathologist: [id number] 05/10/2024 12:53 EST 05/10/2024 18:00 EST Vocational Services Specialist Cytology Report SPECIMEN: Specimen Description: Liquid Prep w/ HPV Specimen: Cervical/Endocervical Screening or Diagnostic: Screening RELEVANT HISTORY: LMP: 04/10/24 [id number] SPECIMEN ADEQUACY: SATISFACTORY FOR EVALUATION Endocervical/Transformation al zone component present INTERPRETATION/RESULTS: NEGATIVE FOR INTRAEPITHELIAL LESION OR MALIGNANCY HIGH RISK HPV TESTING: Event Code Result HPV Interp See Interp HPVN HPV Interp Text: High Risk HPV Typing: NEGATIVE HPV types 16, 18, 31, 33, 35, 39, 45, 51, 52, 56, 58, 59, 66 and 68 DNA were undetectable or below the pre-set threshold. The pierce High-Risk HPV DNA Test is not intended for use as a screening device for Pap normal women under age 30 and is not intended to substitute for regular Pap screening. The pierce High-Risk HPV DNA Test is designed to augment existing methods for the detection of cervical disease and should be used in conjunction with clinical information derived from other diagnostic and screening tests, physical examinations and full medical history in accordance with appropriate patient management procedures. NOTE: A negative result does not preclude the presence of HPV infection because results depend on adequate specimen collection, absence of inhibitors and sufficient DNA to be detected. As of: 05/16/24 11:25 EST COMMENT: This Pap Test was successfully processed and evaluated with the assistance of the [employer] ThinPrep Test Imaging System. Pathology Reports Accession: Collected Date/Time: Received Date/Time: Pathologist: [id number] 05/10/2024 12:53 EST 05/10/2024 18:00 EST Verified by Pathology report verified by [facility] Screened by: [place] Electronically signed by Christina GONZALEZ (ASCP) Sign-Out Date: 05/16/2024 11:25 Performing Lab: [facility], [address] [place] [address] Pathology Dept Disclaimer The Pap test is a screening test for cervical cancer. As evidenced by published data, it is subject to both inherent false negative and false positive results. Your patient's results should be interpreted in context with pertinent clinical history including gynecological examination. Normal [facility] HPVon 05-15-2024 HPV Interp Normal See Interp HPVN [facility] Comment on above: Order Comment: Order placed by AP_HPV_ORDER rule from [id number] Result Comment: High Risk HPV Typing: NEGATIVE HPV types 16, 18, 31, 33, 35, 39, 45, 51, 52, 56, 58, 59, 66 and 68 DNA were undetectable or below the pre-set threshold. The pierce High-Risk HPV DNA Test is not intended for use as a screening device for Pap normal women under age 30 and is not intended to substitute for regular Pap screening. The pierce High-Risk HPV DNA Test is designed to augment existing methods for the detection of cervical disease and should be used in conjunction with clinical information derived from other diagnostic and screening tests, physical examinations and full medical history in accordance with appropriate patient management procedures. NOTE: A negative result does not preclude the presence of HPV infection because results depend on adequate specimen collection, absence of inhibitors and sufficient DNA to be detected. See Interp HPVN Performed By: #### H PV #### [place] [address] HPV Source Cervix Normal [facility] Comment on above: Order Comment: Order placed by AP_HPV_ORDER rule from [id number] Performed By: #### H #### [place] [address] VAGINAL PATHOGEN DNA DIRECT PROBES[JUSTEN]on 05-14-2024 VAGINAL PATHOGEN DNA DIRECT PROBES[JUSTEN] Normal [facility] Comment on above: Result Comment: _VAG INAL PATHOGENS DNA DIRECT PROBES [CCL]_ SEE SEPARATE REPORT Performed By: #### 2 27435 #### [address] [address] GC/CHLAM AMPLIFICATION [CCL] on 05-11-2024 SEND TO IC? NO Normal [facility] Comment on above: Performed By: #### 2 96205 #### [facility],[address] [place] [address] Chlamydia trachomatis RNA Not detected Normal Not detected [facility] Comment on above: Result Comment: This FDA-approved assay has been modified to accept rectal swabs self-collected in a healthcare setting. For self-collected rectal swabs, the test was developed and its performance characteristics determined by the [facility] [place] ([facility]). It has not been cleared or approved by the FDA. -[facility] is regulated under CLIA as qualified to perform high-complexity testing. This test is used for clinical purposes. It should not be regarded as investigational or for research. SOURCE: [facility] [address] [place] [address] Nickolas Rodriguez III, M.D. [id number] Performed By: #### 2 93407 #### [facility],[address] [place] [address] Neisseria gonorrhoeae RNA Not detected Normal Not detected [facility] Comment on above: Performed By: #### 2 28490 #### [address] [address] VITAMIN B1, WHOLE BLOOD [CCL ]on 12-27-2023 Vitamin B1 (TDP), WholeBlood 174.8 nmol/L Normal 84.3-213.3 [facility] Comment on above: Result Comment: This assay measures the concentration of thiamine diphosphate (TDP), the primary active form of vitamin B1. Approximately 90 percent of vitamin B1 present in whole blood is TDP. Thiamine and thiamine monophosphate, which comprise the remaining 10 percent, are not measured. This test was developed and its performance characteristics determined by [facility] [place] ([facility]). It has not been cleared or approved by the FDA. [facility] is regulated under CLIA as qualified to perform high-complexity testing. This test is used for clinical purposes. It should not be regarded as investigational or for research. [address] [address] Nickolas Rodriguez III, M.D. [id number] Performed By: #### 2 66990 #### [address] [address] VITAMIN B6 [CCL]on 4 Vitamin B6 Plasma 50.1 nmol/L Normal 20.0-125.0 [facility] Comment on above: Result Comment: INTE RPRETIVE INFORMATION: Vitamin B6 (Pyridoxal 5-Phosphate) Pyridoxal 5'-phosphate measured in a specimen collected following an 8-hour or overnight fast accurately indicates vitamin B6 nutritional status. Non-fasting specimen concentration reflects recent vitamin intake. This test was developed and its performance characteristics determined by [facility]. It has not been cleared or approved by the [place] Food and Drug Administration. This test was performed in a CLIA certified laboratory and is intended for clinical purposes. Performed By: [facility] [address] [place] [id number] Analytics Specialist: Dennis Robles MD, PhD CLIA Number: [id number] [address] [address] Nickolas Rodriguez III, M.D. [id number] Performed By: #### 2 73635 #### [address] [address] CBC + DIFFon 12-19-2023 ANISO 1+ Normal [facility] Comment on above: Performed By: #### 2 94234 #### [facility],[address] [place] [address] Baso # 0.03 x10EE3/UL Normal 0.00 - 0.10 [facility] Comment on above: Performed By: #### 2 97633 #### [facility],[address] [place] [address] Basophils/100 WBC (Bld) 0.5 % Normal 0.0 - 2.0 [facility] Comment on above: Performed By: #### 2 82123 #### [facility],[address] [place] [address] Basophils/100 WBC (Bld) 1.0 % Normal 0.0 - 2.0 [facility] Comment on above: Performed By: #### 2 03881 #### [facility],[address] [place] [address] CBC + DIFF Normal [facility] Comment on above: Result Comment: CBC- COMPLETE BLOOD COUNT Performed By: #### 2 09599 #### [facility],[address] [place] [address] EO 2.0 % Normal 0.0 - 7.0 [facility] Comment on above: Performed By: #### 2 74583 #### [facility],[address] [place] [address] EO # 0.11 x10EE3/UL Normal 0.00 - 0.50 [facility] Comment on above: Performed By: #### 2 40826 #### [facility],[address] [place] [address] Eosinophils/100 WBC (Bld) 1.9 % Normal 0.0 - 7.0 [facility] Comment on above: Performed By: #### 2 94844 #### [facility],[address] [place] [address] Erythrocyte distribution width (RBC) [Ratio] 19.2 % High 12.0 - 15.6 [facility] Comment on above: Performed By: #### 2 12551 #### [place] [address] Hematocrit (Bld) [Volume fraction] 27.8 % Low 34.0 - 46.0 [facility] Comment on above: Performed By: #### 2 05668 #### [facility],[address] [place] [address] Hemoglobin (Bld) [Mass/Vol] 8.4 g/dL Low 12.0 - 16.0 [facility] Comment on above: Performed By: #### 2 46590 #### [place] [address] HYPOCHROM 1+ Normal [facility] Comment on above: Performed By: #### 2 14276 #### [place] [address] Lymph # 1.87 x10EE3/UL Normal 0.80 - 2.80 [facility] Comment on above: Performed By: #### 2 81228 #### [place] [address] Lymphocytes/100 WBC (Bld) 32.9 % Normal 20.0 - 45.0 [facility] Comment on above: Performed By: #### 2 50793 #### [place] [address] Lymphocytes/100 WBC (Bld) 35 % Normal 20 - 45 [facility] Comment on above: Performed By: #### 2 00848 #### [place] [address] MANUAL DIFF SEE BELOW Normal [facility] Comment on above: Performed By: #### 2 02821 #### [place] [address] MCH (RBC) [Entitic mass] 19 pg Low 27 - 33 [facility] Comment on above: Performed By: #### 2 15030 #### [facility],[address] [place] [address] MCHC 30 X10 3 Low 32 - 36 [facility] Comment on above: Performed By: #### 2 10926 #### [facility],[address] [place] [address] MCV (RBC) [Entitic vol] 64 fL Low 80 - 99 [facility] Comment on above: Performed By: #### 2 77646 #### [facility],[address] [place] [address] MICROCYTES 1+ Normal [facility] Comment on above: Performed By: #### 2 03855 #### [facility],[address] [place] [address] Cidra # 0.38 x10EE3/UL Normal 0.20 - 1.00 [facility] Comment on above: Performed By: #### 2 98398 #### [facility],[address] [place] [address] MONOS 4 % Normal 0 - 10 [facility] Comment on above: Performed By: #### 2 40265 #### [facility],[address] [place] [address] MONOS % 6.6 % Normal 0.0 - 10.0 [facility] Comment on above: Performed By: #### 2 34065 #### [facility],[address] [place] [address] Morphology Rodney (Bld) [Interp] SEE BELOW Normal [facility] Comment on above: Performed By: #### 2 17959 #### [facility],[address] [place] [address] Neut # 3.30 x10EE3/UL Normal 1.50 - 7.10 [facility] Comment on above: Performed By: #### 2 44389 #### [facility],[address] [place] [address] Neutrophils/100 WBC (Bld) 58.1 % Normal 46.0 - 76.0 [facility] Comment on above: Performed By: #### 2 34248 #### [facility],[address] [place] [address]85 PLATELET 439 x10EE3/UL Normal 150 - 450 [facility] Comment on above: Performed By: #### 2 44661 #### [facility],[address] [place] [address] Platelet mean volume (Bld) [Entitic vol] 8.3 fL Normal 6.6 - 10.5 [facility] Comment on above: Result Comment: AUTO MATED DIFFERENTIAL Performed By: #### 2 40079 #### [facility],[address] [place] [address] PLT EST NORMAL Normal [facility] Comment on above: Performed By: #### 2 23703 #### [facility],[address] [place] [address]486 RBC 4.38 x 10EE6/UL Normal 4.10 - 5.30 [facility] Comment on above: Performed By: #### 2 90602 #### [facility],[address] [place] [address] SEGS 58 % Normal 46 - 76 [facility] Comment on above: Performed By: #### 2 43242 #### [facility],[address] [place] [address] WBC 5.7 x 10EE3/UL Normal 4.5 - 10.8 [facility] Comment on above: Performed By: #### 2 77569 #### [facility],[address] [place] [address] Other RARE GIANT PLATELET Normal [facility] Comment on above: Result Comment: FEW LARGE PLATELETS Performed By: #### 2 94355 #### [facility],[address] [place] [address] CMP with eGFRon 12-19-2023 AGE 33 years Normal [facility] Comment on above: Performed By: #### 2 68626 #### [facility],[address] [place], [place] [address] Albumin [Mass/Vol] 3.3 g/dL Low 3.4 - 5.0 [facility] Comment on above: Performed By: #### 2 10261 #### [facility],[address] [place] [address] Albumin/Globulin [Mass ratio] 1.0 {ratio} Normal 0.9 - 1.6 [facility] Comment on above: Performed By: #### 2 83680 #### [facility],[address] [place] [address] ALK PHOS 64 U/L Normal 46 - 116 [facility] Comment on above: Performed By: #### 2 09919 #### [facility],[address] [place], [place] [address] ALT [Catalytic activity/Vol] 13 U/L Low 16 - 63 [facility] Comment on above: Performed By: #### 2 55916 #### [facility],[address] [place] [address] Anion gap [Moles/Vol] 10 mmol/L Normal 10 - 20 [facility] Comment on above: Performed By: #### 2 06544 #### [facility],[address] [place] [address] AST [Catalytic activity/Vol] 13 U/L Normal 13 - 39 [facility] Comment on above: Performed By: #### 2 75260 #### [facility],[address] [place] [address] B/C RATIO 14 ratio Normal 0 - 30 [facility] Comment on above: Performed By: #### 2 11875 #### [facility],[address] [place] [address]104 Bilirubin [Mass/Vol] 0.5 mg/dL Normal 0.2 - 1.0 [facility] Comment on above: Performed By: #### 2 95177 #### [facility],[address] [place] [address]36 Calcium [Mass/Vol] 8.8 mg/dL Normal 8.5 - 10.1 [facility] Comment on above: Performed By: #### 2 35066 #### [facility],[address] [place] [address] 48339 Chloride [Moles/Vol] 103 mmol/L Normal 98 - 107 [facility] Comment on above: Performed By: #### 2 40505 #### [facility],[address] [place], [place] [address] CMP with eGFR Normal [facility] Comment on above: Result Comment: COMP REHENSIVE METABOLIC PANEL Performed By: #### 2 61773 #### [facility],[address] [place] [address] CO2 [Moles/Vol] 29.0 mmol/L Normal 21.0 - 32.0 [facility] Comment on above: Performed By: #### 2 77248 #### [facility],[address] [place] [address] 13729 Creatinine [Mass/Vol] 0.58 mg/dL Normal 0.55 - 1.02 [facility] Comment on above: Performed By: #### 2 10703 #### [facility],[address] [place] [address] GFR/1.73 sq M.predicted among non-blacks MDRD (S/P/Bld) [Vol rate/Area] mL/min/{1.73_m2} Normal 60 - 999 [facility] Comment on above: Performed By: #### 2 81750 #### [facility],[address] [place] [address] Result Comment: ACCO RDING TO THE NATIONAL KIDNEY DISEASE EDUCATION PROGRAM(NKDE), A NORMAL eGFR IS A VALUE GREATER THAN OR EQUAL TO 60 ML/MIN/1.73 SQ METERS. CHRONIC KIDNEY DISEASE: <60mL/MIN/1.73 SQ METERS KIDNEY FAILURE: <15mL/MIN/1.73 SQ METERS THIS TEST SHOULD ONLY BE USED FOR PATIENTS 18 YEARS OF AGE AND OLDER. Globulin (S) [Mass/Vol] 3.4 g/dL Normal 1.5 - 3.8 [facility] Comment on above: Performed By: #### 2 02333 #### [facility],[address] [place] [address] Glucose [Mass/Vol] 85 mg/dL Normal 74 - 106 [facility] Comment on above: Performed By: #### 2 67898 #### [facility],[address] [place] [address] Potassium [Moles/Vol] 4.4 mmol/L Normal 3.5 - 5.1 [facility] Comment on above: Performed By: #### 2 07350 #### [facility],[address] [place] [address] 22913 Protein [Mass/Vol] 6.7 g/dL Normal 6.4 - 8.2 [facility] Comment on above: Performed By: #### 2 36798 #### [facility],[address] [place] [address] 52789 Sodium [Moles/Vol] 138 mmol/L Normal 136 - 145 [facility] Comment on above: Performed By: #### 2 27420 #### [facility],[address] [place] [address] 45745 Urea nitrogen [Mass/Vol] 8 mg/dL Normal 7 - 18 [facility] Comment on above: Performed By: #### 2 18847 #### [facility],[address] [place] [address] FERRITINon 12-19-2023 Ferritin [Mass/Vol] 6 ng/mL Low 8 - 388 [facility] Comment on above: Performed By: #### 2 27285 #### [facility],[address] [place], [place] [address] HIP BILAT 2+ VIEWS W/AP PELV Walker 12-19-2023 HIP BILAT 2+ VIEWS W/AP PELVIS [address] [address] Patient: ZACK JAMESON Phone#: : 1990 Age: 33 Gender: F Pt. Type: Out Account: [id number] Location: [facility] Ordering: NAYE RHODES Exam Date: 12/19/2023/11:27 Family Phys: Charge Code: [id number] Physician: Larue Order #: [id number] Dose#: PROCEDURE: X-RAY HIP BILAT MIN 2 VIEWS W/AP PELVIS COMPARISON: None. INDICATIONS: Bilateral hip pain. FINDINGS: BONES: Normal. No significant arthropathy or acute abnormality. Femoral heads are normal in contour and seated in the acetabulum. Joint spaces are maintained. SOFT TISSUES: Negative. No visible soft tissue swelling. EFFUSION: None visible. OTHER: Negative. CONCLUSION: 1. Unremarkable bilateral hip radiographs. Dictated by: Deborah Argueta MD on 12/19/2023 at 12:30 Approved by: Deborah Argueta MD on 12/19/2023 at 12:32 Normal [facility] IRON AND TIBCon 12-19-2023 %SATURATION 3 % Normal [facility] Comment on above: Performed By: #### 2 43386 #### [facility],[address] [place], [place] [address] Iron [Mass/Vol] 13 ug/dL Low 50 - 170 [facility] Comment on above: Performed By: #### 2 81277 #### [facility],[address] [place], [place] [id number] TIBC 427 ug/dl Normal 250 - 450 [facility] Comment on above: Performed By: #### 2 73287 #### [facility],[address] [place] [address] 37635 UIBC 414 ug/dL High 155 - 355 [facility] Comment on above: Performed By: #### 2 61529 #### [address] [address] T4-FREE (FREE THYROXINE)on 0 12-19-2023 Free T4 [Mass/Vol] 0.69 ng/dL Low 0.76 - 1.46 [facility] Comment on above: Result Comment: P otential of falsely elevated results when biotin concentrations are > 10 ng/mL. Performed By: #### 2 34728 #### [address] [address] TSHon 12-19-2023 TSH Qn 0.83 m[IU]/L Normal 0.35 - 3.74 [facility] Comment on above: Performed By: #### 2 22236 #### [address] [address] VITAMIN B-12on 12-19-2023 Cobalamin (Vitamin B12) [Mass/Vol] 618 pg/mL Normal 193 - 986 [facility] Comment on above: Performed By: #### 2 03907 #### [address] [address] VITAMIN D, 25 HYDROXYon VitD 43.50 ng/mL Normal 30.00 - 100 [facility] Comment on above: Result Comment: 25-O HD3 indicates both endogenous production and supplementation. 25-OHD2 is an indicator of exogenous sources, such as diet or supplementation. Therapy is based on measurement of Total 25-OHD, with levels <20 ng/mL indicative of Vitamin D deficiency, while levels between 20 ng/mL and 30 ng/mL suggest insufficiency. Optimal levels are >=30ng/mL. Vitamin D, 25-OH D3 Not Established Vitamin D, 25-OH D2 Not Established Performed By: #### 2 91595 #### [address] [address] COMPLETE BLOOD COUNTon 09-19 Erythrocyte distribution width (RBC) [Ratio] 23.1 % High 11.5-15.0 [facility] Comment on above: Performed By: #### C СВЕТЛАНА MERCADO THYR #### [facility] ([id number]) [address], [address] [place] [address] Hematocrit (Bld) [Volume fraction] 27.4 % Low 35-47 [facility] Comment on above: Performed By: #### C СВЕТЛАНА MERCADO, THYR #### [facility] ([id number]) [address], [address] [place] [address] Hemoglobin (Bld) [Mass/Vol] 8.5 g/dL Low 11.7-15.5 [facility] Comment on above: Performed By: #### C СВЕТЛАНА MERCADO THYR #### [facility] ([id number]) [address], [address] [place] [address] MCH (RBC) [Entitic mass] 18.9 pg Low 27-34 [facility] Comment on above: Performed By: #### C СВЕТЛАНА MERCADO THYR #### [facility] ([id number]) [address], [address] [place] [address] MCHC (RBC) [Mass/Vol] 31.0 g/dL Low 32-36 [facility] Comment on above: Performed By: #### Jeb MERCADO FEPWally, THYR #### [facility] ([id number]) [address], [address] [place] [address] MCV (RBC) [Entitic vol] 61 fL Low 80-100 [facility] Comment on above: Performed By: #### Jeb MERCADO FEPWally, THYR #### [facility] ([id number]) [address], [address] [place] [address] Platelet mean volume (Bld) [Entitic vol] 8.6 fL Normal 7-12 [facility] Comment on above: Performed By: #### C BC, FEPR, THYR #### [facility] ([id number]) [address], [address] [place] [address] Platelets (Bld) [#/Vol] 334 10*3/uL Normal 150-450 [facility] Comment on above: Performed By: #### C BC, FEPR, THYR #### [facility] ([id number]) [address], [address] [place] [address] RBC COUNT 4.49 X10E12/L Normal 3.80-5.20 [facility] Comment on above: Performed By: #### C BC, FEPR, THYR #### [facility] ([id number]) [address], [address] [place] [address] WBC (Bld) [#/Vol] 7.0 10*3/uL Normal 4.0-11.0 [facility] Comment on above: Performed By: #### C BC, FEPR, THYR #### [facility] ([id number]) [address], [address] [place] [address] IRON PROFILEon 09-20-2023 Iron [Mass/Vol] 19 ug/dL Low 50-170 [facility] Comment on above: Performed By: #### C BC, FEPR, THYR #### [facility] ([id number]) [address], [address] [place] [address] IRON BINDING 501 ug/dL High 250-425 [facility] Comment on above: Performed By: #### C BC, FEPR, THYR #### [facility] ([id number]) [address], [address] [place] [address] IRON SATURATION 4 % SATURATION Low 15-50 [facility] Comment on above: Performed By: #### C BC, FEPR, THYR #### [facility] ([id number]) [address], [address] [place] [address] THYROID PROFILEon 09-20-2023 Free T4 [Mass/Vol] 0.89 ng/dL Normal 0.61-1.60 [facility] Comment on above: Performed By: #### C BC, FEPR, THYR #### [facility] ([id number]) [address], [address] [place] [address] TSH 2.07 uIU/mL Normal 0.49-4.67 [facility] Comment on above: Performed By: #### C BC, FEPR, THYR #### [facility] ([id number]) [address], [address] [place] [address] Hemoglobin A1Con 08-23-2023 Glucose [Mass/Vol] 103 mg/dL Normal [facility] Comment on above: Result Comment: The ADA and AACC recommend providing the estimated average glucose result to permit better patient understanding of their HBA1c result. Performed By: #### L IPR #### [facility] [address] [place] [address] [employer] Helper: Markie Allen DO #### GLYHGB #### [address] [address] [employer]per: Ladarius Andres MD HbA1c (Bld) [Mass fraction] 5.2 % Normal 4.0-6.0 [facility] Comment on above: Performed By: #### L IPR #### [facility] [address] [place] [address] Term[employer] Ex[employer]ator Helper: Markie Allen DO #### GLYHGB #### [address] [address] [employer]per: Ladarius Andres MD Lipid Profileon 08-23-2023 Cholesterol [Mass/Vol] 104 mg/dL Normal <200 [facility] Comment on above: Result Comment: Cholesterol Guidelines: <200 Desirable 200-240 Borderline >240 Undesirable Performed By: #### L IPR #### [facility] [address] [place] [address] [employer] Ex[employer]ator Helper: Markie Allen DO #### GLYHGB #### [address] [address] [employer] Helper: Ladarius Andres MD Cholesterol in HDL [Mass/Vol] 44 mg/dL Normal >40 [facility] Comment on above: Result Comment: HDL Guidelines: <40 Undesirable 40-59 Borderline >59 Desirable Performed By: #### L IPR #### [facility] [address] [place] [address] Term[employer] Ex[employer]ator Helper: Markie Allen DO #### GLYHGB #### [address] [address] [employer] Helper: Ladarius Andres MD Cholesterol in LDL [Mass/Vol] 50 mg/dL Normal 0-130 [facility] Comment on above: Result Comment: LDL Guidelines: <100 Desirable 100-129 Near to/above Desirable 130-159 Borderline >159 Undesirable Direct (measured) LDL and calculated LDL are not interchangeable tests. Performed By: #### L IPR #### [facility] [address] [place] [address] [employer] Ex[employer]ator Helper: Markie Allen DO #### GLYHGB #### [address] [address] [employer] Helper: Ladarius Andres MD Cholesterol.total/Chol esterol in HDL [Mass ratio] 2.4 {ratio} Normal <5 [facility] Comment on above: Performed By: #### L IPR #### [facility] [address] [place] [address] [employer] Ex[employer]ator Helper: Markie Allen DO #### GLYHGB #### [facility] [address] [place] [address] Term[employer] Ex[employer]ator Helper: Ladarius Andres MD Triglyceride [Mass/Vol] 50 mg/dL Normal <150 [facility] Comment on above: Result Comment: Triglyceride Guidelines: <150 Desirable 150-199 Borderline 200-499 High >499 Very high Based on AHA Guidelines for fasting triglyceride, January 2012. Performed By: #### L IPR #### [facility] [address] [place] [address] [employer] Ex[employer]ator Helper: Markie Allen DO #### GLYHGB #### [facility] [address] [place] [address] [employer]ator Helper: Ladarius Andres MD Basic Metabolic Profon 08-20 Anion gap [Moles/Vol] 11 mmol/L Normal 9-17 [facility] Comment on above: Performed By: #### H CG, LIVP, CDP, EDTOX, BMP #### [facility] [address] [place] [address] [employer]ator Helper: Ladarius Andres MD BUN/CRE Ratio 13 Normal 9-20 [facility] Comment on above: Performed By: #### H CG, LIVP, CDP, EDTOX, BMP #### [facility] [address] [place] [address] [employer] Ex[employer]ator Helper: Ladarius Andres MD Calcium [Mass/Vol] 8.7 mg/dL Normal 8.6-10.4 [facility] Comment on above: Performed By: #### H CG, LIVP, CDP, EDTOX, BMP #### [facility] [address] [place] [address] [employer] Ex[employer]ator Helper: Ladarius Andres MD Chloride [Moles/Vol] 107 mmol/L Normal 98-107 [facility] Comment on above: Performed By: #### H CG, LIVP, CDP, EDTOX, BMP #### [facility] [address] [place] [address] [employer] Ex[employer]ator Helper: Ladarius Andres MD CO2 [Moles/Vol] 23 mmol/L Normal 20-31 [facility] Comment on above: Performed By: #### H CG, LIVP, CDP, EDTOX, BMP #### [facility] [address] [place] [address] [employer] Ex[employer]ator Helper: Ladarius Andres MD Creatinine [Mass/Vol] 0.6 mg/dL Normal 0.5-0.9 [facility] Comment on above: Performed By: #### H CG, LIVP, CDP, EDTOX, BMP #### [facility] [address] [place] [address] [employer]ator Helper: Ladarius Andres MD GFR/1.73 sq M.predicted among non-blacks MDRD (S/P/Bld) [Vol rate/Area] mL/min/{1.73_m2} Normal >60 [facility] Comment on above: Result Comment: These results are not intended for use in patients <18 years of age. eGFR results are calculated without a race factor using the 2020 CKD-EPI equation. Careful clinical correlation is recommended, particularly when comparing to results calculated using previous equations. The CKD-EPI equation is less accurate in patients with extremes of muscle mass, extra-renal metabolism of creatine, excessive creatine ingestion, or following therapy that affects renal tubular secretion. Performed By: #### H CG, LIVP, CDP, EDTOX, BMP #### [facility] [address] [place] [address] [employer] Ex[employer]ator Helper: Ladarius Andres MD Glucose [Mass/Vol] 98 mg/dL Normal 70-99 [facility] Comment on above: Performed By: #### H CG, LIVP, CDP, EDTOX, BMP #### [facility] [address] [place] [address] [employer] Helper: Ladarius Andres MD Potassium [Moles/Vol] 3.7 mmol/L Normal 3.7-5.3 [facility] Comment on above: Performed By: #### H CG, LIVP, CDP, EDTOX, BMP #### [facility] [address] [place] [address] [employer] Ex[employer]ator Helper: Ladarius Andres MD Sodium [Moles/Vol] 141 mmol/L Normal 135-144 [facility] Comment on above: Performed By: #### H CG, LIVP, CDP, EDTOX, BMP #### [facility] [address] [place] [address] [employer] Ex[employer]ator Helper: Ladarius Andres MD Urea nitrogen [Mass/Vol] 8 mg/dL Normal 6-20 [facility] Comment on above: Performed By: #### H CG, LIVP, CDP, EDTOX, BMP #### [facility] [address] [place] [address] [employer] Ex[employer]ator Helper: Ladarius Andres MD CBC with Diffon 08-21-2023 Abs. Basophil 0.07 k/uL Normal 0.00-0.20 [facility] Comment on above: Performed By: #### H CG, LIVP, CDP, EDTOX, BMP #### [facility] [address] [place] [address] [employer] Ex[employer]ator Helper: Ladarius Andres MD Abs.Imm.Granulocyte <0.03 Normal 0.00-0.30 [facility] Comment on above: Performed By: #### H CG, LIVP, CDP, EDTOX, BMP #### [facility] [address] [place] [address] [employer] Ex[employer]ator Helper: Ladarius Andres MD Abs.Neutrophil (Seg) 3.02 k/uL Normal 1.50-8.10 [facility] Comment on above: Performed By: #### H CG, LIVP, CDP, EDTOX, BMP #### [facility] [address] [place] [address] Term[employer] Ex[employer]ator Helper: Ladarius Andres MD Basophils/100 WBC (Bld) 1 % Normal 0-2 [facility] Comment on above: Performed By: #### H CG, LIVP, CDP, EDTOX, BMP #### [facility] [address] [place] [address] [employer] Ex[employer]ator Helper: Ladarius Andres MD Eosinophils (Bld) [#/Vol] 0.16 10*3/uL Normal 0.00-0.44 [facility] Comment on above: Performed By: #### H CG, LIVP, CDP, EDTOX, BMP #### [facility] [address] [place] [address] [employer] Ex[employer]ator Helper: Ladarius Andres MD Eosinophils/100 WBC (Bld) 3 % Normal 1-4 [facility] Comment on above: Performed By: #### H CG, LIVP, CDP, EDTOX, BMP #### [facility] [address] [place] [address] [employer] Ex[employer]ator Helper: Ladarius Andres MD Erythrocyte distribution width (RBC) [Ratio] 20.1 % High 11.8-14.4 [facility] Comment on above: Performed By: #### H CG, LIVP, CDP, EDTOX, BMP #### [facility] [address] [place] [address] [employer] Ex[employer]ator Helper: Ladarius Andres MD Hematocrit (Bld) [Volume fraction] 25.8 % Low 36.3-47.1 [facility] Comment on above: Performed By: #### H CG, LIVP, CDP, EDTOX, BMP #### [facility] [address] [place] [address] [employer] Ex[employer]ator Helper: Ladarius Andres MD Hemoglobin (Bld) [Mass/Vol] 6.9 g/dL Critically low 11.9-15.1 [facility] Comment on above: Performed By: #### H CG, LIVP, CDP, EDTOX, BMP #### [facility] [address] [place] [address] [employer] Ex[employer]ator Helper: Ladarius Andres MD Immature granulocytes/100 WBC (Bld) 0 % Normal 0 [facility] Comment on above: Performed By: #### H CG, LIVP, CDP, EDTOX, BMP #### [facility] [address] [place] [address] [employer] Ex[employer]ator Helper: Ladarius Andres MD Lymphocytes (Bld) [#/Vol] 1.44 10*3/uL Normal 1.10-3.70 [facility] Comment on above: Performed By: #### H CG, LIVP, CDP, EDTOX, BMP #### [facility] [address] [place] [address] [employer] Ex[employer]ator Helper: Ladarius Andres MD Lymphocytes/100 WBC (Bld) 28 % Normal 24-43 [facility] Comment on above: Performed By: #### H CG, LIVP, CDP, EDTOX, BMP #### [facility] [address] [place] [address] [employer] Ex[employer]ator Helper: Ladarius Andres MD MCH (RBC) [Entitic mass] 17.1 pg Low 25.2-33.5 [facility] Comment on above: Performed By: #### H CG, LIVP, CDP, EDTOX, BMP #### [facility] [address] [place] [address] [employer] Ex[employer]ator Helper: Ladarius Andres MD MCHC (RBC) [Mass/Vol] 26.7 g/dL Normal 25.2-33.5 [facility] Comment on above: Performed By: #### H CG, LIVP, CDP, EDTOX, BMP #### [facility] [address] [place] [address] [employer] Ex[employer]ator Helper: Ladarius Andres MD MCV (RBC) [Entitic vol] 63.9 fL Low 82.6-102.9 [facility] Comment on above: Performed By: #### H CG, LIVP, CDP, EDTOX, BMP #### [facility] [address] [place] [address] [employer] Ex[employer]ator Helper: Ladarius Andres MD Monocytes (Bld) [#/Vol] 0.45 10*3/uL Normal 0.10-1.20 [facility] Comment on above: Performed By: #### H CG, LIVP, CDP, EDTOX, BMP #### [facility] [address] [place] [address] [employer] Ex[employer]ator Helper: Ladarius Andres MD Monocytes/100 WBC (Bld) 9 % Normal 3-12 [facility] Comment on above: Performed By: #### H CG, LIVP, CDP, EDTOX, BMP #### [facility] [address] [place] [address] [employer] Ex[employer]ator Helper: Ladarius Andres MD Neutrophil (Seg) 59 % Normal 36-65 [facility] Comment on above: Performed By: #### H CG, LIVP, CDP, EDTOX, BMP #### [facility] [address] [place] [address] [employer] Ex[employer]ator Helper: Ladarius Andres MD NRBC Automated 0.0 per 100 WBC Normal 0.0 [facility] Comment on above: Performed By: #### H CG, LIVP, CDP, EDTOX, BMP #### [facility] [address] [place] [address] [employer] Ex[employer]ator Helper: Ladarius Andres MD Platelet mean volume (Bld) [Entitic vol] 9.5 fL Normal 8.1-13.5 [facility] Comment on above: Performed By: #### H CG, LIVP, CDP, EDTOX, BMP #### [facility] [address] [place] [address] [employer] Ex[employer]ator Helper: Ladarius Andres MD Platelets (Bld) [#/Vol] 381 10*3/uL Normal 138-453 [facility] Comment on above: Performed By: #### H CG, LIVP, CDP, EDTOX, BMP #### [facility] [address] [place] [address] [employer] Ex[employer]ator Helper: Ladarius Andres MD RBC (Bld) [#/Vol] 4.04 10*6/uL Normal 3.95-5.11 [facility] Comment on above: Performed By: #### H CG, LIVP, CDP, EDTOX, BMP #### [facility] [address] [place] [address] [employer] Ex[employer]ator Helper: Ladarius Andres MD WBC (Bld) [#/Vol] 5.2 10*3/uL Normal 3.5-11.3 [facility] Comment on above: Performed By: #### H CG, LIVP, CDP, EDTOX, BMP #### [facility] [address] [place] [address] [employer] Exterminator Helper: Ladarius Andres MD Drug Scr, Abuse, Uron 2023 Amphetamine(s),Ur Positive Abnormal NEG [facility] Comment on above: Result Comment: (Positive cutoff 1000 ng/mL) Performed By: #### U AX, UMICAO, STACY #### [facility] [address] [place] [address] [employer] Ex[employer]ator Helper: Ladarius Andres MD Barbiturate(s),Ur Negative Normal NEG [facility] Comment on above: Result Comment: (Positive cutoff 200 ng/mL) Performed By: #### U AX, UMICAO, STACY #### [facility] [address] [place] [address] [employer] Ex[employer]ator Helper: Ladarius Andres MD Benzodiazepine(s) Negative Normal NEG [facility] Comment on above: Result Comment: (Positive cutoff 200 ng/mL) Performed By: #### U AX, UMICAO, STACY #### [facility] [address] [place] [address] [employer] Ex[employer]ator Helper: Ladarius Andres MD Cannabinoid(s),Ur Positive Abnormal NEG [facility] Comment on above: Result Comment: (Positive cutoff 50 ng/mL) Performed By: #### U AX, UMICAO, STACY #### [facility] [address] [place] [address] Term[employer] Ex[employer]ator Helper: Ladarius Andres MD Cocaine Metabolite Negative Normal NEG [facility] Comment on above: Result Comment: (Positive cutoff 300 ng/mL) Performed By: #### U AX, UMICAO, STACY #### [facility] [address] [place] [address] Term[employer] Ex[employer]ator Helper: Ladarius Andres MD Methadone Ql (U) Negative Normal NEG [facility] Comment on above: Result Comment: (Positive cutoff 300 ng/mL) Performed By: #### U AX, UMICAO, STACY #### [facility] [address] [place] [address] Term[employer] Ex[employer]ator Helper: Ladarius Andres MD Opiate(s), Ur Negative Normal [facility] Comment on above: Result Comment: (Positive cutoff 300 ng/mL) Performed By: #### U AX, UMICAO, STACY #### [facility] [address] [place] [address] Term[employer] Exterminator Helper: Ladarius Andres MD Oxycodone, Urine Negative Normal NEG [facility] Comment on above: Result Comment: (Positive cutoff 100 ng/mL) Performed By: #### U AX, UMICAO, STACY #### [facility] [address] [place] [address] Term[employer] Ex[employer]ator Helper: Ladarius Andres MD Phencyclidine, Ur Negative Normal [facility] Comment on above: Result Comment: (Positive cutoff 25 ng/mL) Performed By: #### U AX, UMICAO, STACY #### [facility] [address] [place] [address] Term[employer] Ex[employer]ator Helper: Ladarius Andres MD Fentanyl, Urine Negative Normal NEG [facility] Comment on above: Result Comment: (Positive cutoff 5 ng/ml) Performed By: #### U PILLO MURRY DAU #### [facility] [address] [place] [address] [employer] Exterminator Helper: Ladarius Andres MD Interpretive Info Assay provides medic al screening only. The absence of expected drug(s) and/or Normal [facility] Comment on above: Result Comment: meta bolite(s) may indicate diluted or adulterated urine, limitations of testing or timing of collection. Testing for legal purposes should be confirmed by another method. To request confirmation of test result, please call the lab within 7 days of sample submission. Performed By: #### PILLO DUMONT DAU #### [facility] [address] [place] [address] [employer] Ex[employer]ator Helper: Ladarius Andres MD HCG Screen, Bloodon 08-21-19 HCG Screen, Blood Negative Normal [facility] Comment on above: Result Comment: Spec imens with hCG levels near the threshold of the test (25 mIU/mL) may give a negative or indeterminate result. In such cases, another test should be performed with a new specimen in 48-72 hours. If early is suspected clinically in this setting, correlation with quantitative serum b-hCG level is suggested. Performed By: #### H CG, LIVP, CDP, EDTOX, BMP #### [facility] [address] [place] [address] [employer] Ex[employer]ator Helper: Ladarius Andres MD Hgb/Hcton 08-21-2023 Hematocrit (Bld) [Volume fraction] 26.9 % Low 36.3-47.1 [facility] Comment on above: Performed By: #### H H #### [facility] [address] [place] [address] [employer] Ex[employer]ator Helper: Ladarius Andres MD Hemoglobin (Bld) [Mass/Vol] 7.5 g/dL Low 11.9-15.1 [facility] Comment on above: Performed By: #### H H #### [facility] [address] [place] [address] [employer] Helper: Ladarius Andres MD Liver Profileon 08-21-2023 ALT [Catalytic activity/Vol] 8 U/L Normal 5-33 [facility] Comment on above: Performed By: #### H CG, LIVP, CDP, EDTOX, BMP #### [facility] [address] [place] [address] [employer] Helper: Ladarius Andres MD Albumin [Mass/Vol] 3.9 g/dL Normal 3.5-5.2 [facility] Comment on above: Performed By: #### H CG, LIVP, CDP, EDTOX, BMP #### [facility] [address] [place] [address] [employer] Helper: Ladarius Andres MD Albumin/Glob Ratio 1.4 Normal 1.0-2.5 [facility] Comment on above: Performed By: #### H CG, LIVP, CDP, EDTOX, BMP #### [facility] [address] [place] [address] [employer] Helper: Ladarius Adnres MD Alkaline Phos 58 U/L Normal 35-104 [facility] Comment on above: Performed By: #### H CG, LIVP, CDP, EDTOX, BMP #### [facility] [address] [place] [address] [employer] Helper: Ladarius Andres MD AST [Catalytic activity/Vol] 14 U/L Normal <32 [facility] Comment on above: Performed By: #### H CG, LIVP, CDP, EDTOX, BMP #### [facility] [address] [place] [address] [employer] Helper: Ladarius Andres MD Bilirubin [Mass/Vol] 0.3 mg/dL Normal 0.3-1.2 [facility] Comment on above: Performed By: #### H CG, LIVP, CDP, EDTOX, BMP #### [facility] [address] [place] [address] [employer] Ex[employer] Helper: Ladarius Andres MD Bilirubin, Indirect 0.2 mg/dL Normal 0.0-1.0 [facility] Comment on above: Performed By: #### H CG, LIVP, CDP, EDTOX, BMP #### [facility] [address] [place] [address] [employer]ite Exterminator Helper: Ladarius Andres MD Bilirubin.indirect [Mass/Vol] 0.1 mg/dL Normal <0.3 [facility] Comment on above: Performed By: #### H CG, LIVP, CDP, EDTOX, BMP #### [facility] [address] [place] [address] Termite Exterminator Helper: Ladarius Andres MD Globulin (S) [Mass/Vol] 2.8 g/dL Normal 1.5-3.8 [facility] Comment on above: Performed By: #### H CG, LIVP, CDP, EDTOX, BMP #### [facility] [address] [place] [address] Termite Exterminator Helper: Ladarius Andres MD Protein [Mass/Vol] 6.7 g/dL Normal 6.4-8.3 [facility] Comment on above: Performed By: #### H CG, LIVP, CDP, EDTOX, BMP #### [facility] [address] [place] [address] Termite Exterminator Helper: Ladarius Andres MD Tox Scr, Bld, EDon 4 Acetaminophen [Mass/Vol] ug/mL Low 10-30 [facility] Comment on above: Performed By: #### H CG, LIVP, CDP, EDTOX, BMP #### [facility] [address] [place] [address] [employer] Helper: Ladarius Andres MD Ethanol [Mass/Vol] mg/dL Normal <10 [facility] Comment on above: Performed By: #### H CG, LIVP, CDP, EDTOX, BMP #### [facility] [address] [place] [address], [place] [address] [employer] Ex[employer]ator Helper: Ladarius Andres MD Salicylate <1.0 Low 3-10 [facility] Comment on above: Performed By: #### H CG, LIVP, CDP, EDTOX, BMP #### [facility] [address] [place] [address] [employer] Helper: Ladarius Andres MD Type + Screenon 9 Type + Screen Sample Expiration 08/24/2023,2359 Arm Band Number [id number] ABO/Rh(D) O NEGATIVE Antibody Screen NEGATIVE Unit Number [id number] Blood Component Type Leukocyte Reduced Red Cell Unit Division 00 Status of Unit TRANSFUSED Transfusion Status OK TO TRANSFUSE Crossmatch Result COMPATIBLE Normal [facility] Comment on above: Performed By: #### T YS #### [facility] [address] [place] [address] [employer] Exterminator Helper: Ladarius Andres MD UA w/Reflex Cultureon 9572 Bilirubin, SemiQt,Ur Negative Abnormal NEG [facility] Comment on above: Performed By: #### U PILLO MURRY DAU #### [facility] [address] [place] [address] [employer] Exterminator Helper: Ladarius Andres MD Blood, Urine 2+ Abnormal NEG [facility] Comment on above: Performed By: #### U PILLO MURRY DAU #### [facility] [address] [place] [address] [employer] Ex[employer]ator Helper: Ladarius Andres MD Clarity (U) SLIGHTLY CLOUDY Abnormal CLEAR [facility] Comment on above: Performed By: #### U RASHEEDA MURRYICAO, STACY #### [facility] [address] [place] [address], [place] [address] Termite Exterminator Helper: Ladarius Andres MD Color (U) Yellow Normal YEL [facility] Comment on above: Performed By: #### U AX, UMICAO, STACY #### [facility] [address] [place] [address], [place] [address] Termite Exterminator Helper: Ladarius Andres MD Glucose Ql (U) Negative Normal NEG [facility] Comment on above: Performed By: #### U AX, UMICAO, STACY #### [facility] [address] [place] [address], [place] [address] Termite Exterminator Helper: Ladarius Andres MD Ketones Ql (U) TRACE Abnormal NEG [facility] Comment on above: Performed By: #### U AXFELICIAO, STACY #### [facility] [address] [place] [address], [place] [address] Termite Exterminator Helper: Ladarius Andres MD Leukocyte esterase Test strip Ql (U) Negative Normal NEG [facility] Comment on above: Performed By: #### U AX, UMICAO, STACY #### [facility] [address] [place] [address], [place] [address] Termite Exterminator Helper: Ladarius Andres MD Nitrite,Ur Negative Normal NEG [facility] Comment on above: Performed By: #### U AX, UMICAO, STACY #### [facility] [address] [place] [address], [place] [address] Termite Exterminator Helper: Ladarius Andres MD PH,Ur 6.0 Normal 5.0-6.0 [facility] Comment on above: Performed By: #### U AX, UMICAO, STACY #### [facility] [address] [place] [address], [place] [address] Termite Exterminator Helper: Ladarius Andres MD Protein Ql (U) Negative Normal NEG [facility] Comment on above: Performed By: #### U AXPILLO STACY #### [facility] [address] [place] [address] Term[employer] Exterminator Helper: Ladarius Andres MD Spec. [place] Siding,Ur 1.026 High 1.010-1.02 5 [facility] Comment on above: Performed By: #### U AXPILLO, STACY #### [facility] [address] [place] [address] Termite Exterminator Helper: Ladarius Andres MD Urobilinogen,Ur 4 mg/dL Normal 0.0-1.0 [facility] Comment on above: Performed By: #### U AXPILLO STACY #### [facility] [address] [place] [address] Termite Exterminator Helper: Ladarius Andres MD Urinalysis,Microon 4 Bacteria FEW Abnormal [facility] Comment on above: Performed By: #### U AXPILLO STACY #### [facility] [address] [place] [address], [place] [address] Termite Exterminator Helper: Ladarius Andres MD Epithelial cells LM Ql (Urine sed) 0 TO 2 Normal 0-5 [facility] Comment on above: Performed By: #### U AXPILLO, STACY #### [facility] [address] [place] [address] Termite Exterminator Helper: Ladarius Andres MD Mucus Strands 3+ Abnormal [facility] Comment on above: Performed By: #### U AXPILLO STACY #### [facility] [address] [place] [address] Termite Exterminator Helper: Ladarius Andres MD Other Observations Utilizing a urinalys is as the only screening method to exclude a potential Abnormal NREQ [facility] Comment on above: Result Comment: urop athogen can be unreliable in many patient populations. Rapid screening tests are less sensitive than culture and if UTI is a clinical possibility, culture should be considered despite a negative urinalysis. Performed By: #### U PILLO MURRY DAU #### [facility] [address] [place] [address], [place] [address] Termite Exterminator Helper: Ladarius Andres MD Urine RBC's 20 TO 50 Normal 0-4 [facility] Comment on above: Performed By: #### U PILLO MURRY DAU #### [facility] [address] [place] [address], [place] [address] Termite Exterminator Helper: Ladarius Andres MD Urine WBC's 0 TO 2 Normal 04 [facility] Comment on above: Performed By: #### U PILLO MURRY STACY #### [facility] [address] [place] [address], [place] [address] Termite Exterminator Helper: Ladarius Andres MD DRUG SCREEN MED COMPLIANCE I on 05-18-2023 DRUG SCREEN MED COMPLIANCE I SPECIMEN SENT TO REFERENCE LAB FOR TESTING Normal [facility] DRUG SCREEN MED COMPLIANCE I SPECIMEN SENT TO REFERENCE LAB FOR TESTING [facility] COVID-19/INFLUENZA A,B MOLEC Javon 04-22-2023 SARS-CoV-2 (COVID-19) Ab IA Ql SARS-COV-2 (RAE): Detected INFLUENZA A (RAE): Not Detected INFLUENZA B (RAE): Not Detected Normal Not Detected [facility] Comment on above: Order Comment: This test was performed under the FDA's Emergency Use Authorization (EUA). Testing was performed using the Evaristo Pierce SARS-CoV-2 RT-PCR AND Influenza A/B Nucleic Acid Test on the Pierce Rea System. This test has not been approved for use in asymptomatic patients and its performance in this patient population has not been evaluated. Negative results do not rule out the presence of SARS-CoV-2, influenza A, and/or influenza B. Fact sheets for the EUA can be found at the following links: For Healthcare Providers: https://www.fda.gov/media/092532/download For Patients: https://www.fda.gov/media/366862/download Performed By: #### L [id number] #### [facility] [address] [address] Cheryl Chapman M.D. [id number] Cholesterol [Mass/volume] in Serum or PlasmaOrdered By: Mirza Duff on 01-14-2023 Cholesterol [Mass/Vol] 142 mg/dL 140-200 [facility] Comment on above: Chol less than 200 m g/dl low riskChol 201-239 mg/dl borderline riskChol 240 mg/dl and greater high risk Cholesterol in LDL Calc [Mas s/Vol]Ordered By: Mirza Duff on 01-14-2023 Cholesterol in LDL [Mass/Vol] 80 mg/dL 0-100 [facility] Comment on above: LDL ATP III CLASSIFI CATIONLDL less than 100 mg/dL OptimalLDL 100-129 mg/dL Near or above optimalLDL 130-159 mg/dL Borderline highLDL 160-189 mg/dL HighLDL greater than 189 mg/dL Very high Cholesterol in VLDL Calc [Ma ss/Vol]Ordered By: Mirza Duff on 01-14-2023 Cholesterol in VLDL [Mass/Vol] 11 mg/dL [facility] ECG 12 lead ECGon 01-14-2023 ECG 12 lead ECG [facility] [address] Electrocardiograph Report Signed Patient: Zack Jameson MR#: [id number] [birth year] : 1990 Acct:[id number] Age/Sex: 32 / F ADM Date: 01/13/23 Loc: Room: [address] [place] [address] Type: ADM IN Attending Dr: Mirza Duff MD Ordering Provider: Mirza Duff MD Date of Service: 01/14/23 ECG/ECG 12 lead ECG: baseline Copies to: Test Reason : Blood Pressure : / mmHG Vent. Rate : 061 BPM Atrial Rate : 061 BPM P-R Int : 142 ms QRS Dur : 084 ms QT Int : 388 ms P-R-T Axes : 031 069 046 degrees QTc Int : 390 ms Normal sinus rhythm Normal ECG No previous ECGs available Confirmed by RADHA SOLOMON MD ([id number]) on 01/14/2023 9:55:37 AM Referred By: Electronically Signed By:RADHA SOLOMON MD Transcribed By: MUS Signed By Radha Solomon MD [id number] Normal [facility] Lipid Panelon 01-14-2023 Cholesterol [Mass/Vol] 142 mg/dL Normal 140-200 [facility] Comment on above: Result Comment: Chol less than 200 mg/dl low risk Chol 201-239 mg/dl borderline risk Chol 240 mg/dl and greater high risk Performed By: #### T SH3 wRFLX, LIPID, [id number] #### [facility] [address] Cholesterol in HDL [Mass/Vol] 50 mg/dL Normal 23-92 [facility] Comment on above: Result Comment: HDL CHOL ATP-III CLASSIFICATION Cardiovascular Risk HDL > or equal to 60 mg/dL LOW HDL < 40 mg/dL HIGH Performed By: #### T SH3 wRFLX, LIPID, [id number] #### [facility] [address] [place] [address] [facility] Cholesterol.total/Chol esterol in HDL [Mass ratio] 2.8 {ratio} Normal <5.0 [facility] Comment on above: Performed By: #### T SH3 wRFLX, LIPID, [id number] #### [facility] [address] [place] [address] [facility] LDL Cholesterol,Calculated 80 mg/dL Normal 0-100 [facility] Comment on above: Result Comment: LDL ATP III CLASSIFICATION LDL less than 100 mg/dL Optimal LDL 100-129 mg/dL Near or above optimal LDL 130-159 mg/dL Borderline high LDL 160-189 mg/dL High LDL greater than 189 mg/dL Very high Performed By: #### T SH3 wRFLX, LIPID, [id number] #### [facility] [address] [place] [address] [place] Triglyceride w/Reflex 59 mg/dL Normal 0-149 [facility] Comment on above: Result Comment: TRIG ATP III CLASSIFICATION TRIG less than 150 mg/dL Normal TRIG 150-199 mg/dL Borderline high TRIG 200-500 mg/dL High TRIG greater than 500 mg/dL Very high Standard traceable to the Center for Disease Conrtrol and Prevention (CDC) test method. Performed By: #### T SH3 wRFLX, LIPID, [id number] #### [facility] [address] VLDL CHOLESTEROL 11 mg/dL Normal [facility] Comment on above: Performed By: #### T SH3 wRFLX, LIPID, [id number] #### [facility] [address] Serum or plasma high density lipoprotein (HDL) cholesterol measurementOrdered By: Mirza Duff on 01-14-2023 Cholesterol in HDL [Mass/Vol] 50 mg/dL 23- [facility] Comment on above: HDL CHOL ATP-III CLA SSIFICATION Cardiovascular RiskHDL > or equal to 60 mg/dL LOWHDL < 40 mg/dL HIGH Serum or plasma total choles terol/high density lipoprotein (HDL) cholesterol mass ratOrdered By: Mirza Duff on 01-14-2023 Cholesterol.total/Chol esterol in HDL [Mass ratio] 2.8 {ratio} <5.0 [facility] Thyroid Stim Hormone w/Rflxo n 01-14-2023 Thyroid Stim Hormone w/Rflx 0.65 u[iU]/mL Normal 0.45-5.33 [facility] Comment on above: Performed By: #### T SH3 wRFLX, LIPID, [id number] #### [facility] [address] Thyrotropin [Units/volume] i n Serum or PlasmaOrdered By: Mirza Duff on 01-14-2023 TSH Qn 0.65 m[IU]/L 0.45-5.33 [facility] Triglyceride [Mass/volume] i n Serum or PlasmaOrdered By: Mirza Duff on 01-14-2023 Triglyceride [Mass/Vol] 59 mg/dL 0-149 [facility] Comment on above: TRIG ATP III CLASSIF ICATIONTRIG less than 150 mg/dL NormalTRIG 150-199 mg/dL Borderline highTRIG 200-500 mg/dL High TRIG greater than 500 mg/dL Very highStandard traceable to the Center for Disease Conrtrol and Prevention (CDC) test method. Vitamin D 25 Hydroxy Totalon 01-14-2023 Vitamin D 25 Hydroxy Total 30.5 ng/mL Normal 30-100 [facility] Comment on above: Result Comment: EDNA MIN D STATUS 25(OH)VITAMIN D RANGE (ng/mL) Deficient <20 Insufficient 20 to <30 Sufficient 30 to 100 Reference: Winston Delaney, Indira HADLEY, et al. Evaluation,treatment, and prevention of vitamin D deficiency; an Endocrine Society clinical practice guideline. JCEM. 2010; 96(7):1911-. PERFORMED BY: [place] [address] PATHOLOGIST [employer]ER ROSA ROBISON M.D. Performed By: #### T SH3 wRFLX, LIPID, [id number] #### [address] Vitamin D+Metabolites [Mass/ volume] in Serum or PlasmaOrdered By: Mirza Duff on 01-14-2023 Vitamin D+Metabolites [Mass/Vol] 30.5 ng/mL 30-100 [facility] Comment on above: VITAMIN D STATUS 25( [place])VITAMIN D RANGE (ng/mL) Deficient <20 Insufficient 20 to <30Sufficient 30 to 100Reference: Winston Delaney, Indira HADLEY, et al. Evaluation,treatment, and prevention of vitamin D deficiency; an Endocrine Society clinical practice guideline. JCEM. 2010; 96(7):1911-30. HIV Ag/Abon 11-29-2022 HIV Ag/Ab Non-Reactive Normal NR [facility] Comment on above: Result Comment: No l aboratory evidence of HIV infection. If acute HIV infection is suspected, consider testing for HIV-1 RNA. Performed By: #### H IVCMB, TREP #### [facility] [employer] [address] [place] [address] Termite Exterminator Helper: Ladarius Andres MD Hep C Abon 11-29-2022 Hep C Ab Non-Reactive Normal NR [facility] Comment on above: Result Comment: The hepatitis C procedure used in our laboratory is a Chemiluminescent test specific for three recombinant HCV antigens. A negative anti-HCV result indicates that the antibodies to hepatitis C virus are not present at this time. Individuals with reactive anti-HCV should be considered infected and infectious until proven otherwise. Confirmation of all equivocal or reactive results is recommended by ordering HCV RNA by PCR. Performed By: #### C MPF, HCG, CBC #### [facility] [address] [place] [address] [place] [address] Termite Exterminator Helper: Cal Gould MD #### AHCV #### [address] [id number] Term[employer] Exterminator Helper: Ladarius Andres MD T.pallidum Ab Screenon 11-29 T.pallidum Ab Screen Non-Reactive Normal NR [facility] Comment on above: Result Comment: T. pallidum antibodies are not detected. There is no serological evidence of infection with T. pallidum (early primary syphilis cannot be excluded). Retest in 2-4 weeks if syphilis is clinically suspect. Performed By: #### H IVCMB, TREP #### [address] [id number] Termite Exterminator Helper: Ladarius Andres MD CBCon 11-28-2022 Erythrocyte distribution width (RBC) [Ratio] 16.8 % High 11.8-14.4 [facility] Comment on above: Performed By: #### C MPF, HCG, CBC #### [facility] [address] [place] [address] [place] [address] Termite Exterminator Helper: Cal Gould MD #### AHCV #### [address] [id number] Termite Exterminator Helper: Ladarius Andres MD Hematocrit (Bld) [Volume fraction] 28.0 % Low 36.3-47.1 [facility] Comment on above: Performed By: #### C MPF, HCG, CBC #### [facility] [address] [place] [address] [employer] Ex[employer]ator Helper: Cal Gould MD #### AHCV #### [address] [id number] Termite Exterminator Helper: Ladarius Andres MD Hemoglobin (Bld) [Mass/Vol] 8.3 g/dL Low 11.9-15.1 [facility] Comment on above: Performed By: #### C MPF, HCG, CBC #### [facility] [address] [place] [address] Termite Exterminator Helper: Cal Gould MD #### AHCV #### [address] [place], [place] [id number] Termite Exterminator Helper: Ladarius Andres MD MCH (RBC) [Entitic mass] 23.9 pg Low 25.2-33.5 [facility] Comment on above: Performed By: #### C MPF, HCG, CBC #### [facility] [address] [place] [address] Termite Exterminator Helper: Cal Gould MD #### AHCV #### [address] [place], [place] [id number] Termite Exterminator Helper: Ladarius Andres MD MCHC (RBC) [Mass/Vol] 29.6 g/dL Normal 28.4-34.8 [facility] Comment on above: Performed By: #### C MPF, HCG, CBC #### [facility] [address] [place] [address] Termite Exterminator Helper: Cal Gould MD #### AHCV #### [address] [place], [place] [id number] Termite Exterminator Helper: Ladarius Andres MD MCV (RBC) [Entitic vol] 80.7 fL Low 82.6-102.9 [facility] Comment on above: Performed By: #### C MPF, HCG, CBC #### [facility] [address] [place], [place] [id number] Termite Exterminator Helper: Cal Gould MD #### AHCV #### [address] [id number] Termite Exterminator Helper: Ladarius Andres MD NRBC Automated 0.0 per 100 WBC Normal 0.0 [facility] Comment on above: Performed By: #### C MPF, HCG, CBC #### [facility] [address] [place], [place] [id number] Termite Exterminator Helper: Cal Gould MD #### AHCV #### [address] [id number] Termite Exterminator Helper: Ladarius Andres MD Platelet mean volume (Bld) [Entitic vol] 10.6 fL Normal 8.1-13.5 [facility] Comment on above: Performed By: #### C MPF, HCG, CBC #### [facility] [address] [place], [place] [id number] Termite Exterminator Helper: Cal Gould MD #### AHCV #### [address] [address] Termite Exterminator Helper: Ladarius Andres MD Platelets (Bld) [#/Vol] 452 10*3/uL Normal 138-453 [facility] Comment on above: Performed By: #### C MPF, HCG, CBC #### [facility] [address] [place], [place] [id number] Term[employer] Exterminator Helper: Cal Gould MD #### AHCV #### [address] [address] Termite Exterminator Helper: Ladarius Andres MD RBC (Bld) [#/Vol] 3.47 10*6/uL Low 3.95-5.11 [facility] Comment on above: Performed By: #### C MPF, HCG, CBC #### [facility] [address] [place], [place] [id number] Termite Exterminator Helper: Cal Gould MD #### AHCV #### [address] [address] Termite Exterminator Helper: Ladarius Andres MD WBC (Bld) [#/Vol] 6.3 10*3/uL Normal 3.5-11.3 [facility] Comment on above: Performed By: #### C MPF, HCG, CBC #### [facility] [address] [place], [place] [phone] Termite Exterminator Helper: Cal Gould MD #### AHCV #### [address] [address] Termite Exterminator Helper: Ladarius Andres MD Comp Metabol,Fastingon 11-28 Albumin [Mass/Vol] 3.9 g/dL Normal 3.5-5.2 [facility] Comment on above: Performed By: #### C MPF, HCG, CBC #### [address] [place], [place] [phone] Termite Exterminator Helper: Cal Gould MD #### AHCV #### [address] [address] Termite Exterminator Helper: Ladarius Andres MD Albumin/Glob Ratio 1.3 Normal 1.0-2.5 [facility] Comment on above: Performed By: #### C MPF, HCG, CBC #### [facility] [address] [place], [place] [id number] Termite Exterminator Helper: Cal Gould MD #### AHCV #### [address] [address] Termite Exterminator Helper: Ladarius Andres MD Alkaline Phos 76 U/L Normal 35-104 [facility] Comment on above: Performed By: #### C MPF, HCG, CBC #### [facility] [address] [place], [place] [phone] Termite Exterminator Helper: Cal Gould MD #### AHCV #### [address] [place], [place] [id number] Termite Exterminator Helper: Ladarius Andres MD ALT [Catalytic activity/Vol] 8 U/L Normal 5-33 [facility] Comment on above: Performed By: #### C MPF, HCG, CBC #### [facility] [address] [place], [place] [id number] Termite Exterminator Helper: Cal Gould MD #### AHCV #### [address] [address] Termite Exterminator Helper: Ladarius Andres MD Anion gap [Moles/Vol] 7 mmol/L Low 9-17 [facility] Comment on above: Performed By: #### C MPF, HCG, CBC #### [facility] [address] [place], [place] [phone] Termite Exterminator Helper: Cal Gould MD #### AHCV #### [address] [place] [address] Termite Exterminator Helper: Ladarius Andres MD AST [Catalytic activity/Vol] 15 U/L Normal <32 [facility] Comment on above: Performed By: #### C MPF, HCG, CBC #### [facility] [address] [place], [place] [phone] Termite Exterminator Helper: Cal Gould MD #### AHCV #### [address] [address] Termite Exterminator Helper: Ladarius Andres MD Bilirubin [Mass/Vol] 0.2 mg/dL Low 0.3-1.2 [facility] Comment on above: Performed By: #### C MPF, HCG, CBC #### [address] [place], [place] [phone] Termite Exterminator Helper: Cal Gould MD #### AHCV #### [address] [id number] Termite Exterminator Helper: Ladarius Andres MD BUN/CRE Ratio 16 Normal 9-20 [facility] Comment on above: Performed By: #### C MPF, HCG, CBC #### [facility] [address] [place] [address] [place], [place] [phone] Termite Exterminator Helper: Cal Gould MD #### AHCV #### [address] [id number] Termite Exterminator Helper: Ladarius Andres MD Calcium [Mass/Vol] 9.1 mg/dL Normal 8.6-10.4 [facility] Comment on above: Performed By: #### C MPF, HCG, CBC #### [facility] [address] [place] [address] [place], [place] [id number] [employer] Exterminator Helper: Cal Gould MD #### AHCV #### [address] [address] Termite Exterminator Helper: Ladarius Andres MD Chloride [Moles/Vol] 107 mmol/L Normal 98-107 [facility] Comment on above: Performed By: #### C MPF, HCG, CBC #### [facility] [address] [place] [address] [place], [place] [id number] Termite Exterminator Helper: Cal Gould MD #### AHCV #### [address] [address] Termite Exterminator Helper: Ladarius Andres MD CO2 [Moles/Vol] 26 mmol/L Normal 20-31 [facility] Comment on above: Performed By: #### C MPF, HCG, CBC #### [facility] [address] [place] [address] [place], [place] [id number] Termite Exterminator Helper: Cal Gould MD #### AHCV #### [address] [place], [place] [id number] Termite Exterminator Helper: Ladarius Andres MD Creatinine [Mass/Vol] 0.5 mg/dL Normal 0.5-0.9 [facility] Comment on above: Performed By: #### C MPF, HCG, CBC #### [facility] [address] [place] [address] [place] [address] Termite Exterminator Helper: Cal Gould MD #### AHCV #### [address] [id number] Termite Exterminator Helper: Ladarius Andres MD GFR/1.73 sq M.predicted among non-blacks MDRD (S/P/Bld) [Vol rate/Area] mL/min/{1.73_m2} Normal >60 [facility] Comment on above: Result Comment: These results are not intended for use in patients <18 years of age. eGFR results are calculated without a race factor using the 2020 CKD-EPI equation. Careful clinical correlation is recommended, particularly when comparing to results calculated using previous equations. The CKD-EPI equation is less accurate in patients with extremes of muscle mass, extra-renal metabolism of creatine, excessive creatine ingestion, or following therapy that affects renal tubular secretion. Performed By: #### C MPF, HCG, CBC #### [facility] [address] [place] [address] [place] [address] Termite Exterminator Helper: Cal Gould MD #### AHCV #### [address] [place], [place] [id number] Termite Exterminator Helper: Ladarius Andres MD Glucose [Mass/Vol] 94 mg/dL Normal 70-99 [facility] Comment on above: Performed By: #### C MPF, HCG, CBC #### [facility] [address] [place] [address] [place] [address] Termite Exterminator Helper: Cal Gould MD #### AHCV #### [address] [place] [address] Termite Exterminator Helper: Ladarius Andres MD Potassium [Moles/Vol] 4.5 mmol/L Normal 3.7-5.3 [facility] Comment on above: Performed By: #### C MPF, HCG, CBC #### [facility] [address] [place], [place] [id number] Termite Exterminator Helper: Cal Gould MD #### AHCV #### [address] [address] Termite Exterminator Helper: Ladarius Andres MD Protein [Mass/Vol] 6.8 g/dL Normal 6.4-8.3 [facility] Comment on above: Performed By: #### C MPF, HCG, CBC #### [facility] [address] [place] [address] [place], [place] [phone] Termite Exterminator Helper: Cal Gould MD #### AHCV #### [address] [address] Termite Exterminator Helper: Ladarius Andres MD Sodium [Moles/Vol] 140 mmol/L Normal 135-144 [facility] Comment on above: Performed By: #### C MPF, HCG, CBC #### [facility] [address] [place] [address] [place], [place] [id number] Termite Exterminator Helper: Cal Gould MD #### AHCV #### [address] [address] Termite Exterminator Helper: Ladarius Andres MD Urea nitrogen [Mass/Vol] 8 mg/dL Normal 6-20 [facility] Comment on above: Performed By: #### C MPF, HCG, CBC #### [facility] [address] [place], [place] 1946183 Termite Exterminator Helper: Cal Gould MD #### AHCV #### [address] [address] Termite Exterminator Helper: Ladarius Andres MD HCG Screen, Bloodon 11-29-19 HCG Screen, Blood Negative Normal NEG [facility] Comment on above: Result Comment: Spec imens with hCG levels near the threshold of the test (25 mIU/mL) may give a negative or indeterminate result. In such cases, another test should be performed with a new specimen in 48-72 hours. If early is suspected clinically in this setting, correlation with quantitative serum b-hCG level is suggested. [facility] has confirmed the use of plasma for this test. This has not been cleared or approved by the U.S. Food and Drug Administration. The FDA has determined that such clearance is not necessary. Performed By: #### C MPF, HCG, CBC #### [facility] [address] [place] [address] [place] [address] Termite Exterminator Helper: Cal Gould MD #### AHCV #### [facility] [address] [place] [address] Termite Exterminator Helper: Ladarius Andres MD Liver Profileon 11-28-2022 Albumin [Mass/Vol] 3.9 g/dL Normal 3.5-5.2 [facility] Comment on above: Performed By: #### L IVP #### [facility] [address] [place] [address] [place] [address] Termite Exterminator Helper: Cal Gould MD Albumin/Glob Ratio 1.5 Normal 1.0-2.5 [facility] Comment on above: Performed By: #### L IVP #### [facility] [address] [place] [address] Termite Exterminator Helper: Cal Gould MD Alkaline Phos 82 U/L Normal 35-104 [facility] Comment on above: Performed By: #### L IVP #### [facility] [address] [place] [address] Termite Exterminator Helper: Cal Gould MD ALT [Catalytic activity/Vol] 8 U/L Normal 5-33 [facility] Comment on above: Performed By: #### L IVP #### [facility] [address] [place] [address] [place], [place] [id number] Termite Exterminator Helper: Cal Gould MD AST [Catalytic activity/Vol] 13 U/L Normal <32 [facility] Comment on above: Performed By: #### L IVP #### [facility] [address] [place] [address] [place], [place] [id number] Termite Exterminator Helper: Cal Gould MD Bilirubin [Mass/Vol] 0.2 mg/dL Low 0.3-1.2 [facility] Comment on above: Performed By: #### L IVP #### [address] [place], [place] [id number] Termite Exterminator Helper: Cal Gould MD Bilirubin, Indirect Can not be calculated Normal 0.0-1 .0 [facility] Comment on above: Performed By: #### L IVP #### [facility] [address] [place] [address] [place], [place] [id number] Termite Exterminator Helper: Cal Gould MD Bilirubin.indirect [Mass/Vol] mg/dL Normal <0.3 [facility] Comment on above: Performed By: #### L IVP #### [address] [place], [place] [id number] Termite Exterminator Helper: Cal Gould MD Protein [Mass/Vol] 6.5 g/dL Normal 6.4-8.3 [facility] Comment on above: Performed By: #### L IVP #### [facility] [address] [place] [address] [place] [address] Termite Exterminator Helper: Cal Gould MD Final Surgical Pathology Rep [facility] 11-01-2022 Final Surgical Pathology Report . Pathology Reports Accession: Collected Date/Time: Received Date/Time: Pathologist: [id number] 10/31/2022 12:42 EDT 10/31/2022 14:23 EDT GALLITO PRADO MD Final Surgical Pathology Report DIAGNOSIS: STOMACH, BIOPSY: - NO SIGNIFICANT MICROSCOPIC PATHOLOGY CLINICAL INFORMATION: Procedure: ESOPHAGOGASTRODUODENOSCOPY Preoperative diagnosis: GASTROINTESTINAL BLEED, ACUTE BLOOD LOSS ANEMIA Postoperative diagnosis: GASTROINTESTINAL BLEED, ACUTE BLOOD LOSS ANEMIA SPECIMEN: A GASTRIC BX - R/O H PYLORI GROSS DESCRIPTION: All parts labelled with patient name and [id number] Received in formalin labeled gastric biopsy is 1 paniagua tissue fragment measuring 0.5 x 0.1 cm. TS-1 Chuyita Cuba, Grossing Shucker/ Dr. Gallito Prado, Pathologist Dictated by Chuyita Cuba MICROSCOPIC DESCRIPTION: The microscopic examination is performed, except in the case of Gross Only. Electronically Signed by Pathology Report verified by [facility] GALLITO PRADO Sign out Date: 11/01/2022 17:08 Performing Lab: [address] Pathology Dept Disclaimer If ancillary studies were utilized, the following Laboratory Developed Test (LDT) disclaimer will apply: Under CLIA requirements, [facility] is qualified to perform high complexity testing. For all ancillary stains, positive and negative controls stain appropriately. Performance characteristics of immunohistochemical and chromogenic in-situ hybridization tests have been determined by [facility]. These tests are used for clinical purposes, They should not be regarded as investigational or for research. Normal [facility] ([place]) .Auto Diffon 10-31-2022 Basophil, Absolute 0.1 10 3/mcL Normal 0.0-0.3 [facility] ([place]) Comment on above: Performed By: #### C BC, BMP, GFR, MORPH, ADIFF, ANEU #### [address] [address] Basophils/100 WBC (Bld) 0.9 % Normal 0.0-2.5 [facility] ([place]) Comment on above: Performed By: #### C BC, BMP, GFR, MORPH, ADIFF, ANEU #### [address] [address] Eosinophil, Absolute 0.2 10 3/mcL Normal 0.0-0.7 [facility] ([place]) Comment on above: Performed By: #### C BC, BMP, GFR, MORPH, ADIFF, ANEU #### [address] [address] Eosinophils/100 WBC (Bld) 2.7 % Normal 0.0-6.0 [facility] ([place]) Comment on above: Performed By: #### C BC, BMP, GFR, MORPH, ADIFF, ANEU #### [address] [address] Lymphocyte, Absolute 3.6 10 3/mcL Normal 0.9-4.3 [facility] ([place]) Comment on above: Performed By: #### C BC, BMP, GFR, MORPH, ADIFF, ANEU #### [address] [address] Lymphocytes/100 WBC (Bld) 50.5 % High 20.0-40.0 [facility] ([place]) Comment on above: Performed By: #### C BC, BMP, GFR, MORPH, ADIFF, ANEU #### [address] [address] Monocyte, Absolute 0.4 10 3/mcL Normal 0.1-1.4 [facility] ([place]) Comment on above: Performed By: #### C BC, BMP, GFR, MORPH, ADIFF, ANEU #### [address] [address] Monocytes/100 WBC (Bld) 5.7 % Normal 2.0-13.0 [facility] ([place]) Comment on above: Performed By: #### C BC, BMP, GFR, MORPH, ADIFF, ANEU #### [address] [address] Neutrophils/100 WBC (Bld) 40.2 % Low 50.0-75.0 [facility] ([place]) Comment on above: Performed By: #### C BC, BMP, GFR, MORPH, ADIFF, ANEU #### [address] [address] .GFRon 10-31-2022 GFR >60 Normal [facility] ([place]) Comment on above: Result Comment: GFR Population mean for , Non- Americans Ages 20-29 = 116 mL/min/1.73 sq.m. Ages 30-39 = 107 mL/min/1.73 sq.m. Ages 40-49 = 99 mL/min/1.73 sq.m. Ages 50-59 = 93 mL/min/1.73 sq.m. Ages 60-69 = 85 mL/min/1.73 sq.m. Ages 70+ = 75 mL/min/1.73 sq.m. Chronic Kidney Disease: Less than 60 mL/min/1.73 square meters End Stage Renal Disease: Less than 15 mL/min/1.73 square meters Performed By: #### G FR, BMP #### [address] [address] GFR Non- >60 Normal [facility] ([place]) Comment on above: Result Comment: GFR Population mean for , Non- Americans Ages 20-29 = 116 mL/min/1.73 sq.m. Ages 30-39 = 107 mL/min/1.73 sq.m. Ages 40-49 = 99 mL/min/1.73 sq.m. Ages 50-59 = 93 mL/min/1.73 sq.m. Ages 60-69 = 85 mL/min/1.73 sq.m. Ages 70+ = 75 mL/min/1.73 sq.m. Chronic Kidney Disease: Less than 60 mL/min/1.73 square meters End Stage Renal Disease: Less than 15 mL/min/1.73 square meters Performed By: #### G FR, BMP #### [address] [address] GFR Non- >60 Normal [facility] ([place]) Comment on above: Result Comment: GFR Population mean for , Non- Americans Ages 20-29 = 116 mL/min/1.73 sq.m. Ages 30-39 = 107 mL/min/1.73 sq.m. Ages 40-49 = 99 mL/min/1.73 sq.m. Ages 50-59 = 93 mL/min/1.73 sq.m. Ages 60-69 = 85 mL/min/1.73 sq.m. Ages 70+ = 75 mL/min/1.73 sq.m. Chronic Kidney Disease: Less than 60 mL/min/1.73 square meters End Stage Renal Disease: Less than 15 mL/min/1.73 square meters Performed By: #### C BC, BMP, GFR, MORPH, ADIFF, ANEU #### [address] [address] GFR >60 Normal [facility] ([place]) Comment on above: Result Comment: GFR Population mean for , Non- Americans Ages 20-29 = 116 mL/min/1.73 sq.m. Ages 30-39 = 107 mL/min/1.73 sq.m. Ages 40-49 = 99 mL/min/1.73 sq.m. Ages 50-59 = 93 mL/min/1.73 sq.m. Ages 60-69 = 85 mL/min/1.73 sq.m. Ages 70+ = 75 mL/min/1.73 sq.m. Chronic Kidney Disease: Less than 60 mL/min/1.73 square meters End Stage Renal Disease: Less than 15 mL/min/1.73 square meters Performed By: #### C BC, BMP, GFR, MORPH, ADIFF, ANEU #### [place] [address] .Morphon 10-31-2022 Platelet Estimate Normal Normal [facility] ([place]) Comment on above: Performed By: #### C BC, BMP, GFR, MORPH, ADIFF, ANEU #### [address] [place] [address] RBC morphology finding Nom (Bld) See Below Normal [facility] ([place]) Comment on above: Result Comment: RBC Morphology appears Normal Performed By: #### C BC, BMP, GFR, MORPH, ADIFF, ANEU #### [place] [address] .NEUABSon 10-31-2022 Neutrophil, Absolute 2.8 10 3/mcL Normal 2.3-8.1 [facility] ([place]) Comment on above: Performed By: #### C BC, BMP, GFR, MORPH, ADIFF, ANEU #### [place] [address] BMPon 10-31-2022 BUN/Creatinine Ratio 22.0 ratio Normal 10.0-22.0 [facility] ([place]) Comment on above: Performed By: #### Aldair PARKER, BMP #### [address] [address] Calcium [Mass/Vol] 8.1 mg/dL Low 8.7-10.4 [facility] ([place]) Comment on above: Performed By: #### Aldair PARKER, BMP #### [address] [address] Chloride [Moles/Vol] 112 mmol/L High 98-110 [facility] ([place]) Comment on above: Performed By: #### Aldair PARKER, BMP #### [address] [address] CO2 [Moles/Vol] 24 mmol/L Normal 22-32 [facility] ([place]) Comment on above: Performed By: #### Aldair PARKER, BMP #### [address] [address] Creatinine [Mass/Vol] 0.59 mg/dL Normal 0.50-1.20 [facility] ([place]) Comment on above: Performed By: #### Aldair PARKER, BMP #### [address] [address] Electrolyte Balance 6.0 mEq/L Normal 4.0-15.0 [facility] ([place]) Comment on above: Performed By: #### Aldair PARKER, BMP #### [address] [address] Glucose [Mass/Vol] 88 mg/dL Normal 70-110 [facility] ([place]) Comment on above: Performed By: #### Aldair PARKER, BMP #### [address] [address] Potassium [Moles/Vol] 3.6 mmol/L Normal 3.5-5.0 [facility] ([place]) Comment on above: Performed By: #### Aldair PARKER, BMP #### [address] [address] Sodium [Moles/Vol] 142 mmol/L Normal 136-145 [facility] ([place]) Comment on above: Performed By: #### G FR, BMP #### [address] [address] Urea nitrogen [Mass/Vol] 13.0 mg/dL Normal 8.0-22.0 [facility] ([place]) Comment on above: Performed By: #### G FR, BMP #### [address] [address] BUN/Creatinine Ratio 25.9 ratio High 10.0-22.0 [facility] ([place] Comment on above: Performed By: #### C BC, BMP, GFR, MORPH, ADIFF, ANEU #### [address] [address] Calcium [Mass/Vol] 7.9 mg/dL Low 8.7-10.4 [facility] ([place] Comment on above: Performed By: #### C BC, BMP, GFR, MORPH, ADIFF, ANEU #### [address] [address] Chloride [Moles/Vol] 113 mmol/L High 98-110 [facility] ([place] Comment on above: Performed By: #### C BC, BMP, GFR, MORPH, ADIFF, ANEU #### [address] [address] CO2 [Moles/Vol] 23 mmol/L Normal 22-32 [facility] ([place] Comment on above: Performed By: #### C BC, BMP, GFR, MORPH, ADIFF, ANEU #### [address] [address] Creatinine [Mass/Vol] 0.58 mg/dL Normal 0.50-1.20 [facility] ([place] Comment on above: Performed By: #### C BC, BMP, GFR, MORPH, ADIFF, ANEU #### [address] [address] Electrolyte Balance 5.0 mEq/L Normal 4.0-15.0 [facility] ([place]) Comment on above: Performed By: #### C BC, BMP, GFR, MORPH, ADIFF, ANEU #### [address] [address] Glucose [Mass/Vol] 83 mg/dL Normal 70-110 [facility] ([place] Comment on above: Performed By: #### C BC, BMP, GFR, MORPH, ADIFF, ANEU #### [place] [id number] Potassium [Moles/Vol] 3.5 mmol/L Normal 3.5-5.0 [facility] ([place] Comment on above: Performed By: #### C BC, BMP, GFR, MORPH, ADIFF, ANEU #### [place] [id number] Sodium [Moles/Vol] 141 mmol/L Normal 136-145 [facility] ([place] Comment on above: Performed By: #### C BC, BMP, GFR, MORPH, ADIFF, ANEU #### [place] [address] Urea nitrogen [Mass/Vol] 15.0 mg/dL Normal 8.0-22.0 [facility] ([place]) Comment on above: Performed By: #### C BC, BMP, GFR, MORPH, ADIFF, ANEU #### [place] [id number] CBCon 10-31-2022 Erythrocyte distribution width (RBC) [Ratio] 14.6 % Normal 11.5-15.5 [facility] ([place] Comment on above: Performed By: #### C BC, BMP, GFR, MORPH, ADIFF, ANEU #### [place] [address] Hematocrit (Bld) [Volume fraction] 23.0 % Low 34.0-46.0 [facility] ([place] Comment on above: Performed By: #### C BC, BMP, GFR, MORPH, ADIFF, ANEU #### [place] [id number] Hgb 7.7 G/dL Low 12.0-16.0 [facility] ([place] Comment on above: Performed By: #### C BC, BMP, GFR, MORPH, ADIFF, ANEU #### [place] [id number] MCH (RBC) [Entitic mass] 28.6 pg Normal 27.0-33.0 [facility] ([place] Comment on above: Performed By: #### C BC, BMP, GFR, MORPH, ADIFF, ANEU #### [place] [address] MCHC 33.5 G/dL Normal 32.0-36.0 [facility] ([place] Comment on above: Performed By: #### C BC, BMP, GFR, MORPH, ADIFF, ANEU #### [place] [address] MCV (RBC) [Entitic vol] 85.4 fL Normal 80.0-99.0 [facility] ([place] Comment on above: Performed By: #### C BC, BMP, GFR, MORPH, ADIFF, ANEU #### [place] [address] Platelet 231 10 3/mcL Normal 150-450 [facility] ([place] Comment on above: Performed By: #### C BC, BMP, GFR, MORPH, ADIFF, ANEU #### [place] [address] Platelet mean volume (Bld) [Entitic vol] 8.2 fL Normal 6.6-10.5 [facility] ([place] Comment on above: Performed By: #### C BC, BMP, GFR, MORPH, ADIFF, ANEU #### [place] [address] RBC 2.70 10 6/mcL Low 4.10-5.30 [facility] ([place] Comment on above: Performed By: #### C BC, BMP, GFR, MORPH, ADIFF, ANEU #### [place] [address] WBC 7.1 10 3/mcL Normal 4.5-10.8 [facility] ([place] Comment on above: Performed By: #### C BC, BMP, GFR, MORPH, ADIFF, ANEU #### [place] [address] LABORATORYOrdered By: Erum Ramirez on 07-17-2023 Beta HCG ( test) Ql (U) HCG not detected.Very dilute urine specimens, as indicated by a low specific gravity, may not contain passenger relations representative levels of hCG.If is still suspected, a first morning urine specimen should be collected 48 hours later and tested. Invalid Interpretation Code Manual Urine SS HCG Qn (U) Negative (10/31/22 11:10 AM) Invalid Interpretation Code Manual Urine SS LABORATORYOrdered By: SYSTEM SYSTEM on 10-31-2022 Calcium [Mass/Vol] 8.1 mg/dL Invalid Interpretation Code 8.7 - 10.4 mg/dL ADM SS Chloride [Moles/Vol] 112 mmol/L Invalid Interpretation Code 98 - 110 mEq/L ADM SS CO2 [Moles/Vol] 24 mmol/L Invalid Interpretation Code 22 - 32 mEq/L ADM SS Creatinine [Mass/Vol] 0.59 mg/dL Invalid Interpretation Code 0.50 - 1.20 mg/dL ADM SS Electrolyte Balance 6.0 mEq/L Invalid Interpretation Code 4.0 - 15.0 mEq/L ADM SS GFR/1.73 sq M.predicted among blacks MDRD (S/P/Bld) [Vol rate/Area] ml/min/1.73sqm Invalid Interpretation Code Chemistry S GFR/1.73 sq M.predicted among non-blacks MDRD (S/P/Bld) [Vol rate/Area] ml/min/1.73sqm Invalid Interpretation Code Chemistry S Glucose [Mass/Vol] 88 mg/dL Invalid Interpretation Code 70 - 110 mg/dL ADM SS Potassium [Moles/Vol] 3.6 mmol/L Invalid Interpretation Code 3.5 - 5.0 mEq/L ADM SS Sodium [Moles/Vol] 142 mmol/L Invalid Interpretation Code 136 - 145 mEq/L ADM SS Urea nitrogen [Mass/Vol] 13.0 mg/dL Invalid Interpretation Code 8.0 - 22.0 mg/dL ADM SS Urea nitrogen/Creatinine [Mass ratio] 22.0 ratio Invalid Interpretation Code 10.0 - 22.0 ratio ADM SS Basophils (Bld) [#/Vol] 0.1 103/mcL Invalid Interpretation Code 0.0 - 0.3 10^3/mcL Workflow SS Basophils/100 WBC (Bld) 0.9 % Invalid Interpretation Code 0.0 - 2.5 % AH Workflow SS Calcium [Mass/Vol] 7.9 mg/dL Invalid Interpretation Code 8.7 - 10.4 mg/dL ADM SS Chloride [Moles/Vol] 113 mmol/L Invalid Interpretation Code 98 - 110 mEq/L ADM SS CO2 [Moles/Vol] 23 mmol/L Invalid Interpretation Code 22 - 32 mEq/L ADM SS Creatinine [Mass/Vol] 0.58 mg/dL Invalid Interpretation Code 0.50 - 1.20 mg/dL ADM SS Electrolyte Balance 5.0 mEq/L Invalid Interpretation Code 4.0 - 15.0 mEq/L ADM SS Eosinophils (Bld) [#/Vol] 0.2 103/mcL Invalid Interpretation Code 0.0 - 0.7 10^3/mcL Workflow SS Eosinophils/100 WBC (Bld) 2.7 % Invalid Interpretation Code 0.0 - 6.0 % Workflow SS Erythrocyte distribution width (RBC) [Ratio] 14.6 % Invalid Interpretation Code 11.5 - 15.5 % Workflow SS GFR/1.73 sq M.predicted among blacks MDRD (S/P/Bld) [Vol rate/Area] ml/min/1.73sqm Invalid Interpretation Code Chemistry S GFR/1.73 sq M.predicted among non-blacks MDRD (S/P/Bld) [Vol rate/Area] ml/min/1.73sqm Invalid Interpretation Code Chemistry S Glucose [Mass/Vol] 83 mg/dL Invalid Interpretation Code 70 - 110 mg/dL ADM SS Hematocrit (Bld) [Volume fraction] 23.0 % Invalid Interpretation Code 34.0 - 46.0 % Workflow SS Hemoglobin (Bld) [Mass/Vol] 7.7 G/dL Invalid Interpretation Code 12.0 - 16.0 G/dL Workflow SS Lymphocytes (Bld) [#/Vol] 3.6 103/mcL Invalid Interpretation Code 0.9 - 4.3 10^3/mcL Workflow SS Lymphocytes/100 WBC (Bld) 50.5 % Invalid Interpretation Code 20.0 - 40.0 % Workflow SS MCH (RBC) [Entitic mass] 28.6 pg Invalid Interpretation Code 27.0 - 33.0 pg Workflow SS MCHC 33.5 G/dL Invalid Interpretation Code 32.0 - 36.0 G/dL Workflow SS MCV (RBC) [Entitic vol] 85.4 fL Invalid Interpretation Code 80.0 - 99.0 fL AH Workflow SS Monocytes (Bld) [#/Vol] 0.4 103/mcL Invalid Interpretation Code 0.1 - 1.4 10^3/mcL AH Workflow SS Monocytes/100 WBC (Bld) 5.7 % Invalid Interpretation Code 2.0 - 13.0 % AH Workflow SS Neutrophils (Bld) [#/Vol] 2.8 103/mcL Invalid Interpretation Code 2.3 - 8.1 10^3/mcL AH Workflow SS Neutrophils/100 WBC (Bld) 40.2 % Invalid Interpretation Code 50.0 - 75.0 % AH Workflow SS Platelet mean volume (Bld) [Entitic vol] 8.2 fL Invalid Interpretation Code 6.6 - 10.5 fL AH Workflow SS Platelets (Bld) [#/Vol] 231 103/mcL Invalid Interpretation Code 150 - 450 10^3/mcL AH Workflow SS Platelets LM Ql (Bld) Normal *NA* (10/31/22 6:17 AM) Invalid Interpretation Code AH Workflow SS Potassium [Moles/Vol] 3.5 mmol/L Invalid Interpretation Code 3.5 - 5.0 mEq/L AH ADM SS RBC (Bld) [#/Vol] 2.70 106/mcL Invalid Interpretation Code 4.10 - 5.30 10^6/mcL AH Workflow SS RBC morphology finding Nom (Bld) See Below 1 *NA* (10/31/22 6:17 AM) Invalid Interpretation Code AH Workflow SS Comment on above: Result Comment: RBC Morphology appears Normal Sodium [Moles/Vol] 141 mmol/L Invalid Interpretation Code 136 - 145 mEq/L AH ADM SS Urea nitrogen [Mass/Vol] 15.0 mg/dL Invalid Interpretation Code 8.0 - 22.0 mg/dL AH ADM SS Urea nitrogen/Creatinine [Mass ratio] 25.9 ratio Invalid Interpretation Code 10.0 - 22.0 ratio AH ADM SS WBC (Bld) [#/Vol] 7.1 103/mcL Invalid Interpretation Code 4.5 - 10.8 10^3/mcL AH Workflow SS PREGUon 10-31-2022 HCG ( test) Ql (U) Negative Normal [facility] ([place]) Comment on above: Performed By: #### P REGU #### [facility] [address] [place], [place] [address] test (u) int Not detected Invalid Interpretation Code [facility] ([place]) Comment on above: Performed By: #### P REGU #### [facility] [address] [place] [id number] 3610-10-2022 36 Tried calling this p atient many times... No answer & I get a message saying the mailbox is full & cannot accept anymore messages, then it hangs up on me! [facility] 3608-29-2022 36 Called to r/s 08/31 a pt with elmer. No answer [facility] 07-11-2022 36 Spoke w pnt. Appt made [facility] 07-08-2022 36 Called patient to katherine [place]ton appointment, patient was driving and asked me to call her back in 20 minutes. [facility] 07-07-2022 36 Name of caller: Khushboo Jameson Contact phone number: [phone] Relationship to Patient: patient Provider: Practice: [facility] Chief Complaint/Reason for Call: Zack is requesting to be scheduled for a n/p appointment.Please contact and advise. Best time of day caller can be reached: Any Patient advised that office/PCP has 24-48 business hours to return their call: Yes Normal [facility] Basic Metabolic Panelon 07-1 Anion gap [Moles/Vol] 8 mmol/L Normal 3-13 [facility] Comment on above: Performed By: #### B CAMILLE SWAIN MDIFF #### [facility] [address] [place] [address] Calcium [Mass/Vol] 9.3 mg/dL Normal 8.4-10.4 [facility] Comment on above: Performed By: #### B CAMILLE SWAIN MDIFF #### [facility] [address] [place] [address] CO2 [Moles/Vol] 27 mmol/L Normal 22-30 [facility] Comment on above: Performed By: #### B CAMILLE SWAIN MDIFF #### [facility] [address] [place], [place] Glucose [Mass/Vol] 58 mg/dL Low 70-100 [facility] Comment on above: Performed By: #### B CAMILLE SWAIN MDIFF #### [facility] [address] [place], [place] Urea nitrogen [Mass/Vol] 13 mg/dL Normal 9-20 [facility] Comment on above: Performed By: #### B CAMILLE SWAIN MDIFF #### [address] Creatinine [Mass/Vol] 0.54 mg/dL Normal 0.52-1.25 [facility] Comment on above: Performed By: #### B CAMILLE SWAIN MDIFF #### [address] eGFR OTHER > 90.0 Normal >60 [facility] Comment on above: Result Comment: KDIG O guidelines provide the following GFR categories: Stage GFR(ml/min/1.73 m2) Terms G1 >=90 Normal or high G2 60-89 Mildly decreased* G3a 45-59 Mildly to moderately decreased G3b 30-44 Moderately to severely decreased G4 15-29 Severely decreased G5 <15 Kidney failure *Relative to young adult level. In the absence of evidence of kidney damage, neither GFR category G1 nor G2 fulfill the criteria for CKD. The CKD-EPI equation is validated in individuals 18 years of age and older. Currently the best equation for estimating glomerular filtration rate (GFR) from serum creatinine in children is the Bedside Lawson equation. It is less accurate in patients with extremes of muscle mass, restriction of dietary protein, ingestion of creatine, extra-renal metabolism of creatinine, or treatment with medications that affect renal tubular creatinine secretion. Performed By: #### B CAMILLE SWAIN MDIFF #### [address] [address] GFR/1.73 sq M.predicted among blacks MDRD (S/P/Bld) [Vol rate/Area] mL/min/{1.73_m2} Normal >60 [facility] Comment on above: Performed By: #### B CAMILLE SWAIN MDIFF #### [place] [address] [address] [place], [place] Chloride [Moles/Vol] 104 mmol/L Normal 98-107 [facility] Comment on above: Performed By: #### CAMILLE WEEMS MDIFF #### [place] [address] [address] [place], [place] Potassium [Moles/Vol] 4.5 mmol/L Normal 3.5-5.1 [facility] Comment on above: Performed By: #### CAMILLE WEEMS MDIFF #### [place] [address] [address] [place], [place] Sodium [Moles/Vol] 139 mmol/L Normal 135-145 [facility] Comment on above: Performed By: #### CAMILLE WEEMS MDIFF #### [place] [address] [address] [place], [place] Hemogram w/ Autodiffon 10-31 Erythrocyte distribution width (RBC) [Ratio] 33.5 % High 11.5-14.5 [facility] Comment on above: Performed By: #### CAMILLE WEEMS MDIFF #### [place] [address] [address] [place], [place] Hematocrit (Bld) [Volume fraction] 29.2 % Low 35.0-47.0 [facility] Comment on above: Performed By: #### CAMILLE WEEMS MDIFF #### [place] [address] [address] [place], [place] Hemoglobin (Bld) [Mass/Vol] 8.7 g/dL Low 11.7-16.0 [facility] Comment on above: Performed By: #### CAMILLE WEEMS MDIFF #### [place] [address] [place], [place] MCH (RBC) [Entitic mass] 19.3 pg Low 26.0-34.0 [facility] Comment on above: Performed By: #### CAMILLE WEEMS MDIFF #### [place] [address] [address] [place], [place] MCHC 29.9 % Low 32.0-36.0 [facility] Comment on above: Performed By: #### CAMILLE WEEMS MDIFF #### [place] [address] [address] [place], [place] MCV (RBC) [Entitic vol] 64.5 fL Low 79.0-98.0 [facility] Comment on above: Performed By: #### CAMILLE WEEMS MDIFF #### [place] [address] [address] [place], [place] Platelet mean volume (Bld) [Entitic vol] 8.5 fL Normal 7.4-12.4 [facility] Comment on above: Result Comment: MPV is a calculated measurement using platelet volume ratio. Performed By: #### CAMILLE WEEMS MDIFF #### [address] Platelets (Bld) [#/Vol] 243 10*3/uL Normal 140-440 [facility] Comment on above: Performed By: #### CAMILLE WEEMS MDIFF #### [place] [address] [place], [place] RBC (Bld) [#/Vol] 4.52 10*6/uL Normal 3.80-5.20 [facility] Comment on above: Performed By: #### CAMILLE WEEMS MDIFF #### [address] WBC (Bld) [#/Vol] 6.2 10*3/uL Normal 3.6-10.7 [facility] Comment on above: Performed By: #### CAMILLE WEEMS MDIFF #### [address] Manual Diffon 10-31-2021 Abs Eosin Cnt 0.2 10*3/uL Normal 0.0-0.5 [facility] Comment on above: Performed By: #### CAMILLE WEEMS MDIFF #### [place] [address] [address] [place], [place] Abs Lymph Cnt 3.4 10*3/uL Normal 1.1-4.5 [facility] Comment on above: Performed By: #### CAMILLE WEEMS MDIFF #### [place] [address] [address] [place], [place] Abs Monocyte Cnt 0.4 10*3/uL Normal 0.2-1.1 [facility] Comment on above: Performed By: #### CAMILLE WEEMS MDIFF #### [place] [address] [address] [place], [place] Abs Neutrophile Cnt 2.1 10*3/uL Low 2.2-8.2 [facility] Comment on above: Performed By: #### CAMILLE WEEMS MDIFF #### [place] [address] [address] [place], [place] Anisocytosis Moderate Normal [facility] Comment on above: Performed By: #### CAMILLE WEEMS MDIFF #### [place] [address] [address] [place], [place] Eosinophils 4 % Normal 1-6 [facility] Comment on above: Performed By: #### CAMILLE WEEMS MDIFF #### [place] [address] [address] [place], [place] Hypochromia Slight Normal [facility] Comment on above: Performed By: #### CAMILLE WEEMS MDIFF #### [place] [address] [address] [place], [place] Lymphocytes 55 % High 20-40 [facility] Comment on above: Performed By: #### CAMILLE WEEMS MDIFF #### [place] [address] [address] [place], [place] Microcytosis Slight Normal [facility] Comment on above: Performed By: #### CAMILLE WEEMS MDIFF #### [place] [address] [address] [place], [place] Monocytes 7 % Normal 2-10 [facility] Comment on above: Performed By: #### CAMILLE WEEMS MDIFF #### [facility] [address] [place], [place] Ovalocytes Moderate Normal [facility] Comment on above: Performed By: #### CAMILLE WEEMS MDIFF #### [facility] [address] [place], [place] Poikilocytosis Moderate Normal [facility] Comment on above: Performed By: #### CAMILLE WEEMS MDIFF #### [place] [address] [address] [place], [place] Polychromasia Slight Normal [facility] Comment on above: Performed By: #### CAMILLE WEEMS MDIFF #### [place] [address] [address] [place], [place] RBC Morphology ABNORMAL Normal [facility] Comment on above: Performed By: #### CAMILLE WEEMS MDIFF #### [place] [address] [address] [place], [place] Seg Neutrophils 34 % Low 40-80 [facility] Comment on above: Performed By: #### CAMILLE WEEMS MDIFF #### [place] [address] [address] [place], [place] Target Cells Slight Normal [facility] Comment on above: Performed By: #### CAMILLE WEEMS MDIFF #### [place] [address] [address] [place], [place] Tear Drop Forms Slight Normal [facility] Comment on above: Performed By: #### CAMILLE WEEMS MDIFF #### [place] [address] [address] [place], [place] Abs Baso Cnt 0.0 10*3/uL Normal 0.0-0.2 [facility] Comment on above: Performed By: #### CAMILLE WEEMS MDIFF #### [place] [address] [address] [place], [place] Bands 0 % Normal 0-3 [facility] Comment on above: Performed By: #### CAMILLE WEEMS MDIFF #### [place] [address] [address] [place], [place] Basophils 0 % Normal 0-2 [facility] Comment on above: Performed By: #### CAMILLE WEEMS MDIFF #### [facility] [address] [place], [place] Cells counted 100 Normal [facility] Comment on above: Performed By: #### CAMILLE WEEMS MDIFF #### [place] [address] [address] [place], [place] Basic Metabolic Panelon 10-15 Anion gap [Moles/Vol] 9 mmol/L Normal 3-13 [facility] Comment on above: Performed By: #### CAMILLE WEEMS MDIFF #### [place] [address] [address] [place], [place] Calcium [Mass/Vol] 9.2 mg/dL Normal 8.4-10.4 [facility] Comment on above: Performed By: #### CAMILLE WEEMS MDIFF #### [place] [address] [address] [place], [place] CO2 [Moles/Vol] 27 mmol/L Normal 22-30 [facility] Comment on above: Performed By: #### CAMILLE WEEMS MDIFF #### [place] [address] [address] [place], [place] Glucose [Mass/Vol] 95 mg/dL Normal 70-100 [facility] Comment on above: Performed By: #### CAMILLE WEEMS MDIFF #### [place] [address] [address] [place], [place] Urea nitrogen [Mass/Vol] 12 mg/dL Normal 9-20 [facility] Comment on above: Performed By: #### CAMILLE WEEMS MDIFF #### [place] [address] [address] [place], [place] Creatinine [Mass/Vol] 0.46 mg/dL Low 0.52-1.25 [facility] Comment on above: Performed By: #### CAMILLE WEEMS MDIFF #### [address] eGFR OTHER > 90.0 Normal >60 [facility] Comment on above: Result Comment: KDIG O guidelines provide the following GFR categories: Stage GFR(ml/min/1.73 m2) Terms G1 >=90 Normal or high G2 60-89 Mildly decreased* G3a 45-59 Mildly to moderately decreased G3b 30-44 Moderately to severely decreased G4 15-29 Severely decreased G5 <15 Kidney failure *Relative to young adult level. In the absence of evidence of kidney damage, neither GFR category G1 nor G2 fulfill the criteria for CKD. The CKD-EPI equation is validated in individuals 18 years of age and older. Currently the best equation for estimating glomerular filtration rate (GFR) from serum creatinine in children is the Bedside Lawson equation. It is less accurate in patients with extremes of muscle mass, restriction of dietary protein, ingestion of creatine, extra-renal metabolism of creatinine, or treatment with medications that affect renal tubular creatinine secretion. Performed By: #### CAMILLE WEEMS MDIFF #### [address] GFR/1.73 sq M.predicted among blacks MDRD (S/P/Bld) [Vol rate/Area] mL/min/{1.73_m2} Normal >60 [facility] Comment on above: Performed By: #### CAMILLE WEEMS MDIFF #### [address] Chloride [Moles/Vol] 104 mmol/L Normal 98-107 [facility] Comment on above: Performed By: #### CAMILLE WEEMS MDIFF #### [address] Potassium [Moles/Vol] 4.2 mmol/L Normal 3.5-5.1 [facility] Comment on above: Performed By: #### CAMILLE WEEMS MDIFF #### [address] Sodium [Moles/Vol] 140 mmol/L Normal 135-145 [facility] Comment on above: Performed By: #### CAMILLE WEEMS MDIFF #### [place] [address] [address] [place], [place] Hemogram w/ Autodiffon 10-28 Abs Baso Cnt 0.1 10*3/uL Normal 0.0-0.2 [facility] Comment on above: Performed By: #### CAMILLE WEEMS MDIFF #### [place] [address] [address] [place], [place] Abs Neutrophile Cnt 4.7 10*3/uL Normal 1.8-7.0 [facility] Comment on above: Performed By: #### CAMILLE WEEMS MDIFF #### [place] [address] [address] [place], [place] Basophils/100 WBC (Bld) 0.9 % Normal 0.0-2.0 [facility] Comment on above: Performed By: #### CAMILLE WEEMS MDIFF #### [place] [address] [address] [place], [place] Eosinophils (Bld) [#/Vol] 0.1 10*3/uL Normal 0.0-0.5 [facility] Comment on above: Performed By: #### CAMILLE WEEMS MDIFF #### [place] [address] [place], [place] Eosinophils/100 WBC (Bld) 2.0 % Normal 1.0-6.0 [facility] Comment on above: Performed By: #### CAMILLE WEEMS MDIFF #### [place] [address] [address] [place], [place] Erythrocyte distribution width (RBC) [Ratio] 29.2 % High 11.5-14.5 [facility] Comment on above: Performed By: #### CAMILLE WEEMS MDIFF #### [address] Granulocytes/100 WBC (Bld) 73.7 % Normal 40.0-80.0 [facility] Comment on above: Performed By: #### CAMILLE WEEMS MDIFF #### [place] [address] [address] [place], [place] Hematocrit (Bld) [Volume fraction] 28.7 % Low 35.0-47.0 [facility] Comment on above: Performed By: #### CAMILLE WEEMS MDIFF #### [facility] [address] [place], [place] Hemoglobin (Bld) [Mass/Vol] 8.2 g/dL Low 11.7-16.0 [facility] Comment on above: Performed By: #### CAMILLE WEEMS MDIFF #### [place] [address] [address] [place], [place] Lymphocytes (Bld) [#/Vol] 1.1 10*3/uL Normal 1.0-4.3 [facility] Comment on above: Performed By: #### CAMILLE WEEMS MDIFF #### [place] [address] [address] [place], [place] Lymphocytes/100 WBC (Bld) 17.4 % Low 20.0-40.0 [facility] Comment on above: Performed By: #### CAMILLE WEEMS MDIFF #### [place] [address] [address] [place], [place] MCH (RBC) [Entitic mass] 17.7 pg Low 26.0-34.0 [facility] Comment on above: Performed By: #### CAMILLE WEEMS MDIFF #### [place] [address] [address] [place], [place] MCHC 28.7 % Low 32.0-36.0 [facility] Comment on above: Performed By: #### CAMILLE WEEMS MDIFF #### [place] [address] [address] [place], [place] MCV (RBC) [Entitic vol] 61.7 fL Low 79.0-98.0 [facility] Comment on above: Performed By: #### CAMILLE WEEMS MDIFF #### [place] [address] [address] [place], [place] Monocytes (Bld) [#/Vol] 0.4 10*3/uL Normal 0.0-0.8 [facility] Comment on above: Performed By: #### CAMILLE WEEMS MDIFF #### [place] [address] [address] [place], [place] Monocytes/100 WBC (Bld) 6.0 % Normal 2.0-10.0 [facility] Comment on above: Performed By: #### CAMILLE WEEMS MDIFF #### [place] [address] [address] [place], [place] Platelet mean volume (Bld) [Entitic vol] 8.1 fL Normal 7.4-12.4 [facility] Comment on above: Result Comment: MPV is a calculated measurement using platelet volume ratio. Performed By: #### CAMILLE WEEMS MDIFF #### [place] [address] [address] [place], [place] Platelets (Bld) [#/Vol] 256 10*3/uL Normal 140-440 [facility] Comment on above: Performed By: #### CAMILLE WEEMS MDIFF #### [place] [address] [address] [place], [place] RBC (Bld) [#/Vol] 4.65 10*6/uL Normal 3.80-5.20 [facility] Comment on above: Performed By: #### CAMILLE WEEMS MDIFF #### [place] [address] [address] [place], [place] WBC (Bld) [#/Vol] 6.4 10*3/uL Normal 3.6-10.7 [facility] Comment on above: Performed By: #### CAMILLE WEEMS MDIFF #### [place] [address] [address] [place], [place] Basic Metabolic Panelon 07-1 Calcium [Mass/Vol] 9.1 mg/dL Normal 8.4-10.4 [facility] Comment on above: Performed By: #### CAMILLE WEEMS MDIFF #### [place] [address] [place] [place], [place] Anion gap [Moles/Vol] 9 mmol/L Normal 3-13 [facility] Comment on above: Performed By: #### CAMILLE WEEMS MDIFF #### [facility] [address] [place], [place] CO2 [Moles/Vol] 27 mmol/L Normal 22-30 [facility] Comment on above: Performed By: #### CAMILLE WEEMS MDIFF #### [facility] [address] [place], [place] Creatinine [Mass/Vol] 0.49 mg/dL Low 0.52-1.25 [facility] Comment on above: Performed By: #### CAMILLE WEEMS MDIFF #### [facility] [address], [place] eGFR OTHER > 90.0 Normal >60 [facility] Comment on above: Result Comment: KDIG O guidelines provide the following GFR categories: Stage GFR(ml/min/1.73 m2) Terms G1 >=90 Normal or high G2 60-89 Mildly decreased* G3a 45-59 Mildly to moderately decreased G3b 30-44 Moderately to severely decreased G4 15-29 Severely decreased G5 <15 Kidney failure *Relative to young adult level. In the absence of evidence of kidney damage, neither GFR category G1 nor G2 fulfill the criteria for CKD. The CKD-EPI equation is validated in individuals 18 years of age and older. Currently the best equation for estimating glomerular filtration rate (GFR) from serum creatinine in children is the Bedside Lawson equation. It is less accurate in patients with extremes of muscle mass, restriction of dietary protein, ingestion of creatine, extra-renal metabolism of creatinine, or treatment with medications that affect renal tubular creatinine secretion. Performed By: #### CAMILLE WEEMS MDIFF #### [facility] [address] [place], [place] GFR/1.73 sq M.predicted among blacks MDRD (S/P/Bld) [Vol rate/Area] mL/min/{1.73_m2} Normal >60 [facility] Comment on above: Performed By: #### CAMILLE WEEMS MDIFF #### [facility] [address], [place] Glucose [Mass/Vol] 88 mg/dL Normal 70-100 [facility] Comment on above: Performed By: #### CAMILLE WEEMS MDIFF #### [facility] [address], [place] Urea nitrogen [Mass/Vol] 9 mg/dL Normal 9-20 [facility] Comment on above: Performed By: #### CAMILLE WEEMS MDIFF #### [place] [address] [address] [place], [place] Chloride [Moles/Vol] 106 mmol/L Normal 98-107 [facility] Comment on above: Performed By: #### CAMILLE WEEMS MDIFF #### [place] [address] [address] [place], [place] Potassium [Moles/Vol] 4.2 mmol/L Normal 3.5-5.1 [facility] Comment on above: Performed By: #### CAMILLE WEEMS MDIFF #### [place] [address] [address] [place], [place] Sodium [Moles/Vol] 143 mmol/L Normal 135-145 [facility] Comment on above: Performed By: #### CAMILLE WEEMS MDIFF #### [place] [address] [address] [place], [place] Hemogram w/ Autodiffon 10-27 Abs Baso Cnt 0.1 10*3/uL Normal 0.0-0.2 [facility] Comment on above: Performed By: #### CAMILLE WEEMS MDIFF #### [place] [address] [address] [place], [place] Abs Neutrophile Cnt 3.0 10*3/uL Normal 1.8-7.0 [facility] Comment on above: Performed By: #### CAMILLE WEEMS MDIFF #### [place] [address] [address] [place], [place] Basophils/100 WBC (Bld) 2.4 % High 0.0-2.0 [facility] Comment on above: Performed By: #### CAMILLE WEEMS MDIFF #### [place] [address] [address] [place], [place] Eosinophils (Bld) [#/Vol] 0.2 10*3/uL Normal 0.0-0.5 [facility] Comment on above: Performed By: #### CAMILLE WEEMS MDIFF #### [place] [address] [place], [place] Eosinophils/100 WBC (Bld) 3.2 % Normal 1.0-6.0 [facility] Comment on above: Performed By: #### CAMILLE WEEMS MDIFF #### [place] [address] [place], [place] Erythrocyte distribution width (RBC) [Ratio] 26.6 % High 11.5-14.5 [facility] Comment on above: Performed By: #### CAMILLE WEEMS MDIFF #### [place] [address] [place], [place] Granulocytes/100 WBC (Bld) 53.9 % Normal 40.0-80.0 [facility] Comment on above: Performed By: #### CAMILLE WEEMS MDIFF #### [place] [address] [place], [place] Hematocrit (Bld) [Volume fraction] 26.2 % Low 35.0-47.0 [facility] Comment on above: Performed By: #### CAMILLE WEEMS MDIFF #### [place] [address] [place], [place] Hemoglobin (Bld) [Mass/Vol] 7.9 g/dL Low 11.7-16.0 [facility] Comment on above: Performed By: #### CAMILLE WEEMS MDIFF #### [address] Lymphocytes (Bld) [#/Vol] 1.8 10*3/uL Normal 1.0-4.3 [facility] Comment on above: Performed By: #### B CAMILLE SWAIN MDIFF #### [place] [address] [address] [place], [place] Lymphocytes/100 WBC (Bld) 32.7 % Normal 20.0-40.0 [facility] Comment on above: Performed By: #### B CAMILLE SWAIN MDIFF #### [place] [address] [place] [place], [place] MCH (RBC) [Entitic mass] 18.0 pg Low 26.0-34.0 [facility] Comment on above: Performed By: #### B CAMILLE SWAIN MDIFF #### [place] [address] [address] [place] MCHC 30.0 % Low 32.0-36.0 [facility] Comment on above: Performed By: #### B CAMILLE SWAIN MDIFF #### [place] [address] [place], [place] MCV (RBC) [Entitic vol] 60.0 fL Low 79.0-98.0 [facility] Comment on above: Performed By: #### B CAMILLE SWAIN MDIFF #### [address] Monocytes (Bld) [#/Vol] 0.4 10*3/uL Normal 0.0-0.8 [facility] Comment on above: Performed By: #### B CAMILLE SWAIN MDIFF #### [place] [address] [place], [place] Monocytes/100 WBC (Bld) 7.8 % Normal 2.0-10.0 [facility] Comment on above: Performed By: #### B CAMILLE SWAIN MDIFF #### [place] [address] [place], [place] Platelet mean volume (Bld) [Entitic vol] 8.5 fL Normal 7.4-12.4 [facility] Comment on above: Result Comment: MPV is a calculated measurement using platelet volume ratio. Performed By: #### B CAMILLE SWAIN MDIFF #### [facility] [address], [place] Platelets (Bld) [#/Vol] 276 10*3/uL Normal 140-440 [facility] Comment on above: Performed By: #### CAMILLE WEEMS MDIFF #### [place] [address] [address] [place], [place] RBC (Bld) [#/Vol] 4.37 10*6/uL Normal 3.80-5.20 [facility] Comment on above: Performed By: #### CAMILLE WEEMS MDIFF #### [place] [address] [address] [place], [place] WBC (Bld) [#/Vol] 5.5 10*3/uL Normal 3.6-10.7 [facility] Comment on above: Performed By: #### CAMILLE WEEMS MDIFF #### [place] [address] [address] [place], [place] Basic Metabolic Panelon 07-04 18-2021 Calcium [Mass/Vol] 8.7 mg/dL Normal 8.4-10.4 [facility] Comment on above: Performed By: #### CAMILLE WEEMS MDIFF #### [place] [address] [address] [place], [place] Anion gap [Moles/Vol] 7 mmol/L Normal 3-13 [facility] Comment on above: Performed By: #### CAMILLE WEEMS MDIFF #### [place] [address] [address] [place], [place] CO2 [Moles/Vol] 26 mmol/L Normal 22-30 [facility] Comment on above: Performed By: #### CAMILLE WEEMS MDIFF #### [place] [address] [address] [place], [place] Creatinine [Mass/Vol] 0.52 mg/dL Normal 0.52-1.25 [facility] Comment on above: Performed By: #### CAMILLE WEEMS MDIFF #### [place] [address] [address] [place], [place] eGFR OTHER > 90.0 Normal >60 [facility] Comment on above: Result Comment: KDIG O guidelines provide the following GFR categories: Stage GFR(ml/min/1.73 m2) Terms G1 >=90 Normal or high G2 60-89 Mildly decreased* G3a 45-59 Mildly to moderately decreased G3b 30-44 Moderately to severely decreased G4 15-29 Severely decreased G5 <15 Kidney failure *Relative to young adult level. In the absence of evidence of kidney damage, neither GFR category G1 nor G2 fulfill the criteria for CKD. The CKD-EPI equation is validated in individuals 18 years of age and older. Currently the best equation for estimating glomerular filtration rate (GFR) from serum creatinine in children is the Bedside Lawson equation. It is less accurate in patients with extremes of muscle mass, restriction of dietary protein, ingestion of creatine, extra-renal metabolism of creatinine, or treatment with medications that affect renal tubular creatinine secretion. Performed By: #### CAMILLE WEEMS MDIFF #### [place] [address] [place] [place], [place] GFR/1.73 sq M.predicted among blacks MDRD (S/P/Bld) [Vol rate/Area] mL/min/{1.73_m2} Normal >60 [facility] Comment on above: Performed By: #### CAMILLE WEEMS MDIFF #### [place] [address] [address] [place], [place] Glucose [Mass/Vol] 92 mg/dL Normal 70-100 [facility] Comment on above: Performed By: #### CAMILLE WEEMS MDIFF #### [address] [place] [address] [address] [place], [place] Urea nitrogen [Mass/Vol] 10 mg/dL Normal 9-20 [facility] Comment on above: Performed By: #### CAMILLE WEEMS MDIFF #### [place] [address] [address] [place], [place] Chloride [Moles/Vol] 108 mmol/L High 98-107 [facility] Comment on above: Performed By: #### CAMILLE WEEMS MDIFF #### [place] [address] [address] [place], [place] Potassium [Moles/Vol] 3.9 mmol/L Normal 3.5-5.1 [facility] Comment on above: Performed By: #### CAMILLE WEEMS MDIFF #### [place] [address] [place], [place] Sodium [Moles/Vol] 141 mmol/L Normal 135-145 [facility] Comment on above: Performed By: #### CAMILLE WEEMS MDIFF #### [place] [address] [address] [place], [place] Hemogram w/ Autodiffon 10-26 Abs Baso Cnt 0.0 10*3/uL Normal 0.0-0.2 [facility] Comment on above: Performed By: #### CAMILLE WEEMS MDIFF #### [address] [place] [address] [place], [place] Abs Neutrophile Cnt 1.7 10*3/uL Low 1.8-7.0 [facility] Comment on above: Performed By: #### CAMILLE WEEMS MDIFF #### [place] [address] [place], [place] Basophils/100 WBC (Bld) 0.3 % Normal 0.0-2.0 [facility] Comment on above: Performed By: #### CAMILLE WEEMS MDIFF #### [place] [address] [address] [place], [place] Eosinophils (Bld) [#/Vol] 0.2 10*3/uL Normal 0.0-0.5 [facility] Comment on above: Performed By: #### CAMILLE WEEMS MDIFF #### [address] Eosinophils/100 WBC (Bld) 3.9 % Normal 1.0-6.0 [facility] Comment on above: Performed By: #### CAMILLE WEEMS MDIFF #### [place] [address] [address] [place], [place] Erythrocyte distribution width (RBC) [Ratio] 29.2 % High 11.5-14.5 [facility] Comment on above: Performed By: #### CAMILLE WEEMS MDIFF #### [place] [address] [address] [place], [place] Granulocytes/100 WBC (Bld) 40.2 % Normal 40.0-80.0 [facility] Comment on above: Performed By: #### CAMILLE WEEMS MDIFF #### [place] [address] [address] [place], [place] Hematocrit (Bld) [Volume fraction] 24.4 % Low 35.0-47.0 [facility] Comment on above: Performed By: #### CAMILLE WEEMS MDIFF #### [place] [address] [address] [place], [place] Hemoglobin (Bld) [Mass/Vol] 7.2 g/dL Low 11.7-16.0 [facility] Comment on above: Performed By: #### CAMILLE WEEMS MDIFF #### [place] [address] [address] [place], [place] Lymphocytes (Bld) [#/Vol] 2.0 10*3/uL Normal 1.0-4.3 [facility] Comment on above: Performed By: #### CAMILLE WEEMS MDIFF #### [place] [address] [address] [place], [place] Lymphocytes/100 WBC (Bld) 47.8 % High 20.0-40.0 [facility] Comment on above: Performed By: #### CAMILLE WEEMS MDIFF #### [place] [address] [address] [place], [place] MCH (RBC) [Entitic mass] 17.9 pg Low 26.0-34.0 [facility] Comment on above: Performed By: #### CAMILLE WEEMS MDIFF #### [place] [address] [address] [place], [place] MCHC 29.7 % Low 32.0-36.0 [facility] Comment on above: Performed By: #### B CAMILLE SWAIN MDIFF #### [facility] [address] [place], [place] MCV (RBC) [Entitic vol] 60.2 fL Low 79.0-98.0 [facility] Comment on above: Performed By: #### B CAMILLE SWAIN MDIFF #### [facility] [address] [place], [place] Monocytes (Bld) [#/Vol] 0.3 10*3/uL Normal 0.0-0.8 [facility] Comment on above: Performed By: #### B CAMILLE SWAIN MDIFF #### [facility] [address] [place], [place] Monocytes/100 WBC (Bld) 7.8 % Normal 2.0-10.0 [facility] Comment on above: Performed By: #### B CAMILLE SWAIN MDIFF #### [place] [address] [address] [place], [place] Platelet mean volume (Bld) [Entitic vol] 8.4 fL Normal 7.4-12.4 [facility] Comment on above: Result Comment: MPV is a calculated measurement using platelet volume ratio. Performed By: #### B CAMILLE SWAIN MDIFF #### [facility] [address] [place], [place] Platelets (Bld) [#/Vol] 248 10*3/uL Normal 140-440 [facility] Comment on above: Performed By: #### B CAMILLE SWAIN MDIFF #### [facility] [address] [place], [place] RBC (Bld) [#/Vol] 4.05 10*6/uL Normal 3.80-5.20 [facility] Comment on above: Performed By: #### B CAMILLE SWAIN MDIFF #### [place] [address] [address] [place], [place] WBC (Bld) [#/Vol] 4.2 10*3/uL Normal 3.6-10.7 [facility] Comment on above: Performed By: #### CAMILLE WEEMS MDIFF #### [place] [address] [place] [address] Leukodepleted Red Cellson Leukodepleted Red Cells Leukodepleted Red Cells: [id number] transfused 10/25/21 22:59 ERR Unit Blood Type: O Unit Blood Rh: NEG Blood Product Code: LQ1 Unit Number: [id number] Unit Status: transfused Barcoded Unit Number: =[id number] Barcoded Product Code: = Barcoded ABO/Rh: =%9500 Unit Expiration: Unit Volume Transfused: 300 Unit Transfusion Start Date/Time: Normal [facility] Comment on above: Performed By: #### CAMILLE WEEMS MDIFF #### [place] [address] [place] [address] RBC Morphologyon 10-26-2021 Anisocytosis Ql (Bld) Slight Normal [facility] Comment on above: Performed By: #### CAMILLE WEEMS MDIFF #### [place] [address] [place] [address] Hypochromia Moderate Normal [facility] Comment on above: Performed By: #### CAMILLE WEEMS MDIFF #### [place] [address] [place] [address] Microcytosis Slight Normal [facility] Comment on above: Performed By: #### CAMILLE WEEMS MDIFF #### [place] [address] [place] [address] Ovalocytes Slight Normal [facility] Comment on above: Performed By: #### CAMILLE WEEMS MDIFF #### [place] [address] [place] [address] Poikilocytosis Moderate Normal [facility] Comment on above: Performed By: #### CAMILLE WEEMS MDIFF #### [place] [address] [address] [place], [place] RBC morphology finding Nom (Bld) ABNORMAL Normal [facility] Comment on above: Performed By: #### CAMILLE WEEMS MDIFF #### [facility] [address] [place], [place] Tear Drop Forms Slight Normal [facility] Comment on above: Performed By: #### CAMILLE WEEMS MDIFF #### [facility] [address] [place], [place] Comp Metabolic Panelon 10-25 Calcium [Mass/Vol] 9.5 mg/dL Normal 8.4-10.4 [facility] Comment on above: Performed By: #### CAMILLE WEEMS MDIFF #### [facility] [address] [place], [place] Glucose [Mass/Vol] 88 mg/dL Normal 70-100 [facility] Comment on above: Performed By: #### CAMILLE WEEMS MDIFF #### [place] [address] [address] [place], [place] ALP [Catalytic activity/Vol] 86 U/L Normal 38-126 [facility] Comment on above: Performed By: #### CAMILLE WEEMS MDIFF #### [place] [address] [address] [place], [place] ALT [Catalytic activity/Vol] 30 U/L Normal 0-34 [facility] Comment on above: Result Comment: The ALT test is performed by an updated assay method. Please note that the reference intervals have been changed and are now sex specific. Performed By: #### CAMILLE WEEMS MDIFF #### [facility] [address] [place], [place] Anion gap [Moles/Vol] 10 mmol/L Normal 3-13 [facility] Comment on above: Performed By: #### CAMILLE WEEMS MDIFF #### [facility] [address] [place], [place] AST [Catalytic activity/Vol] 70 U/L High 15-46 [facility] Comment on above: Performed By: #### CAMILLE WEEMS MDIFF #### [address] Bilirubin [Mass/Vol] 0.5 mg/dL Normal 0.2-1.3 [facility] Comment on above: Performed By: #### B CAMILLE SWAIN MDIFF #### [address] CO2 [Moles/Vol] 23 mmol/L Normal 22-30 [facility] Comment on above: Performed By: #### CAMILLE WEEMS MDIFF #### [address] Creatinine [Mass/Vol] 0.57 mg/dL Normal 0.52-1.25 [facility] Comment on above: Performed By: #### CAMILLE WEEMS MDIFF #### [address] eGFR OTHER > 90.0 Normal >60 [facility] Comment on above: Result Comment: KDIG O guidelines provide the following GFR categories: Stage GFR(ml/min/1.73 m2) Terms G1 >=90 Normal or high G2 60-89 Mildly decreased* G3a 45-59 Mildly to moderately decreased G3b 30-44 Moderately to severely decreased G4 15-29 Severely decreased G5 <15 Kidney failure *Relative to young adult level. In the absence of evidence of kidney damage, neither GFR category G1 nor G2 fulfill the criteria for CKD. The CKD-EPI equation is validated in individuals 18 years of age and older. Currently the best equation for estimating glomerular filtration rate (GFR) from serum creatinine in children is the Bedside Lawson equation. It is less accurate in patients with extremes of muscle mass, restriction of dietary protein, ingestion of creatine, extra-renal metabolism of creatinine, or treatment with medications that affect renal tubular creatinine secretion. Performed By: #### CAMILLE WEEMS MDIFF #### [address] GFR/1.73 sq M.predicted among blacks MDRD (S/P/Bld) [Vol rate/Area] mL/min/{1.73_m2} Normal >60 [facility] Comment on above: Performed By: #### B BRYNN HEMDF, MDIFF #### [facility] [address] [place], [place] Protein [Mass/Vol] 7.6 g/dL Normal 6.3-8.2 [facility] Comment on above: Performed By: #### CAMILLE WEEMS MDIFF #### [facility] [address] [place], [place] Urea nitrogen [Mass/Vol] 10 mg/dL Normal 9-20 [facility] Comment on above: Performed By: #### B CAMILLE SWAIN MDIFF #### [place] [address] [address] [place], [place] Potassium [Moles/Vol] 3.9 mmol/L Normal 3.5-5.1 [facility] Comment on above: Performed By: #### CAMILLE WEEMS MDIFF #### [place] [address] [address] [place], [place] Sodium [Moles/Vol] 139 mmol/L Normal 135-145 [facility] Comment on above: Performed By: #### CAMILLE WEEMS MDIFF #### [place] [address] [address] [place], [place] Albumin [Mass/Vol] 4.5 g/dL Normal 3.5-5.0 [facility] Comment on above: Performed By: #### CAMILLE WEEMS MDIFF #### [place] [address] [address] [place], [place] Chloride [Moles/Vol] 105 mmol/L Normal 98-107 [facility] Comment on above: Performed By: #### CAMILLE WEEMS MDIFF #### [place] [address] [address] [place], [place] Drugs of Abuseon 10-25-2021 Amphetamines, Ur Positive Normal [facility] Comment on above: Performed By: #### C OVAG, DRGA4, FENTU #### [place] [address] [address] [place], [place] Opiates, Ur Positive Normal [facility] Comment on above: Performed By: #### C OVAG, DRGA4, FENTU #### [facility] [address] [facility], [place] Phencyclidine (PCP), Ur Negative Normal [facility] Comment on above: Result Comment: The expected value for all of the drugs listed above is Negative. The following drugs or drug groups have been screened for by Immunoassay at the following thresholds: Amphetamine class (1000 ng/mL), Barbiturates (200 ng/mL), Benzodiazepines (200 ng/mL), Cocaine (300 ng/mL), Methadone (300 ng/mL), Opiates (300 ng/mL), Oxycodone (100 ng/mL), and PCP (25 ng/mL). NOTE: These results are for medical treatment only. Analysis performed using non-forensic procedures. POSITIVE results are NOT confirmed by a more specific alternative method unless requested. If confirmation is needed, request confirmation under separate order. Performed By: #### C OVAG, DRGA4, FENTU #### [place] [address] [address] [facility], [place] Methadone, Ur Negative Normal [facility] Comment on above: Performed By: #### C OVAG, DRGA4, FENTU #### [place] [address] [address] [facility], [place] Barbiturates, Ur Negative Normal [facility] Comment on above: Performed By: #### C OVAG, DRGA4, FENTU #### [place] [address] [address] [facility], [place] Cocaine, Ur Negative Normal [facility] Comment on above: Performed By: #### C OVAG, DRGA4, FENTU #### [place] [address] [address] [facility], [place] Benzodiazepines, Ur Negative Normal [facility] Comment on above: Performed By: #### C OVAG, DRGA4, FENTU #### [place] [address] [address] [facility], [place] Oxycodone/Oxymorphine, Ur Positive Normal [facility] Comment on above: Performed By: #### C OVAG, DRGA4, FENTU #### [place] [address] [address] [place], [place] Ethanol Serum/Plasmaon 10-25 Ethanol-Serum/Plasma < 0.010 Normal 0.000-0 .01 0 [facility] Comment on above: Result Comment: NOTE : This result is for medical treatment only. Analysis performed using non-forensic procedures. Performed By: #### B CAMILLE SWAIN MDIFF #### [facility] [address] [place], [place] Fecal Occult,Stool Single Sp econ 10-25-2021 Fecal Occult,Stool Single Spec Negative Normal Negative [facility] Comment on above: Performed By: #### B CAMILLE SWAIN MDIFF #### [place] [address] [address] [place], [place] Fentanyl Screen, Urineon Fentanyl Screen, Urn Negative Normal Negative [facility] Comment on above: Result Comment: Fent anyl has been screened for by Immunoassay at a 1 ng/ml threshold. POSITIVE results are not confirmed by a more specific alternative method unless requested. If confirmation is needed, request confirmation under separate order. NOTE: These results are for medical treatment only. Analysis performed using non-forensic procedures. Performed By: #### C OVAG, DRGA4, FENTU #### [place] [address] [address] [place], [place] Ferritinon 10-25-2021 Ferritin [Mass/Vol] 3 ng/mL Low 6-137 [facility] Comment on above: Performed By: #### B CAMILLE SWAIN MDIFF #### [facility] [address] [place], [place] Ferritin [Mass/Vol] 3 ng/mL Low 6-137 [facility] Comment on above: Performed By: #### F EIBC, RTCS, B12, FERR3, FOLT3 #### [facility] [address] [place], [place] Folateon 10-25-2021 Folate 12.3 ng/mL Normal [facility] Comment on above: Result Comment: >2.8 Performed By: #### B CAMILLE SWAIN MDIFF #### [facility] [address] [place], [place] Folate 13.1 ng/mL Normal [facility] Comment on above: Result Comment: >2.8 Performed By: #### CAMILLE WEEMS MDIFF #### [place] [address] [address] [place], [place] Hemoglobin AND Hematocriton 10-25-2021 Hematocrit (Bld) [Volume fraction] 22.5 % Low 35.0-47.0 [facility] Comment on above: Performed By: #### H GHCT #### [place] [address] [address] [place], [place] Hemoglobin (Bld) [Mass/Vol] 6.4 g/dL Critically low 11.7-16.0 [facility] Comment on above: Performed By: #### H GHCT #### [place] [address] [address] [place], [place] Hemogram w/ Autodiffon 10-25 Abs Baso Cnt 0.1 10*3/uL Normal 0.0-0.2 [facility] Comment on above: Performed By: #### CAMILLE WEEMS MDIFF #### [place] [address] [address] [place], [place] Abs Neutrophile Cnt 2.8 10*3/uL Normal 1.8-7.0 [facility] Comment on above: Performed By: #### CAMILLE WEEMS MDIFF #### [place] [address] [address] [place], [place] Basophils/100 WBC (Bld) 1.9 % Normal 0.0-2.0 [facility] Comment on above: Performed By: #### CAMILLE WEEMS MDIFF #### [place] [address] [address] [place], [place] Eosinophils (Bld) [#/Vol] 0.2 10*3/uL Normal 0.0-0.5 [facility] Comment on above: Performed By: #### CAMILLE WEEMS MDIFF #### [place] [address] [address] [place], [place] Eosinophils/100 WBC (Bld) 2.7 % Normal 1.0-6.0 [facility] Comment on above: Performed By: #### CAMILLE WEEMS MDIFF #### [place] [address] [address] [place], [place] Erythrocyte distribution width (RBC) [Ratio] 20.3 % High 11.5-14.5 [facility] Comment on above: Performed By: #### CAMILLE WEEMS MDIFF #### [place] [address] [address] [place], [place] Granulocytes/100 WBC (Bld) 40.5 % Normal 40.0-80.0 [facility] Comment on above: Performed By: #### CAMILLE WEEMS MDIFF #### [place] [address] [address] [place], [place] Hematocrit (Bld) [Volume fraction] 23.2 % Low 35.0-47.0 [facility] Comment on above: Performed By: #### CAMILLE WEEMS MDIFF #### [place] [address] [address] [place], [place] Hemoglobin (Bld) [Mass/Vol] 6.4 g/dL Critically low 11.7-16.0 [facility] Comment on above: Performed By: #### CAMILLE WEEMS MDIFF #### [place] [address] [address] [place], [place] Lymphocytes (Bld) [#/Vol] 3.2 10*3/uL Normal 1.0-4.3 [facility] Comment on above: Performed By: #### CAMILLE WEEMS MDIFF #### [place] [address] [address] [place], [place] Lymphocytes/100 WBC (Bld) 47.2 % High 20.0-40.0 [facility] Comment on above: Performed By: #### CAMILLE WEEMS MDIFF #### [place] [address] [address] [place], [place] MCH (RBC) [Entitic mass] 14.9 pg Low 26.0-34.0 [facility] Comment on above: Performed By: #### B CAMILLE SWAIN MDIFF #### [facility] [address] [place], [place] MCHC 27.4 % Low 32.0-36.0 [facility] Comment on above: Performed By: #### B CAMILLE SWAIN MDIFF #### [place] [address] [address] [place], [place] MCV (RBC) [Entitic vol] 54.5 fL Low 79.0-98.0 [facility] Comment on above: Performed By: #### B CAMILLE SWAIN MDIFF #### [place] [address] [address] [place], [place] Monocytes (Bld) [#/Vol] 0.5 10*3/uL Normal 0.0-0.8 [facility] Comment on above: Performed By: #### CAMILLE WEEMS MDIFF #### [place] [address] [address] [place], [place] Monocytes/100 WBC (Bld) 7.7 % Normal 2.0-10.0 [facility] Comment on above: Performed By: #### CAMILLE WEEMS MDIFF #### [place] [address] [address] [place], [place] Platelet mean volume (Bld) [Entitic vol] 8.0 fL Normal 7.4-12.4 [facility] Comment on above: Result Comment: MPV is a calculated measurement using platelet volume ratio. Performed By: #### B CAMILLE SWAIN MDIFF #### [place] [address] [address] [place], [place] Platelets (Bld) [#/Vol] 302 10*3/uL Normal 140-440 [facility] Comment on above: Performed By: #### CAMILLE WEEMS MDIFF #### [place] [address] [address] [place], [place] RBC (Bld) [#/Vol] 4.25 10*6/uL Normal 3.80-5.20 [facility] Comment on above: Performed By: #### B CAMILLE SWAIN MDIFF #### [facility] [address] [place], [place] WBC (Bld) [#/Vol] 6.8 10*3/uL Normal 3.6-10.7 [facility] Comment on above: Performed By: #### CAMILLE WEEMS MDIFF #### [facility] [address] [place], [place] Iron AND TIBCon 10-25-2021 Saturation 24 % Normal 15-50 [facility] Comment on above: Performed By: #### B CAMILLE SWAIN MDIFF #### [facility] [address] [place], [place] Total Iron Binding Cap. 399 ug/dL Normal 261-497 [facility] Comment on above: Performed By: #### B CAMILLE SWAIN MDIFF #### [place] [address] [address] [place], [place] Iron, Total 96 ug/dL Normal 37-170 [facility] Comment on above: Performed By: #### B CAMILLE SWAIN MDIFF #### [place] [address] [address] [place], [place] Saturation 3 % Low 15-50 [facility] Comment on above: Performed By: #### F EIBC, RTCS, B12, FERR3, FOLT3 #### [place] [address] [address] [place], [place] Total Iron Binding Cap. 439 ug/dL Normal 261-497 [facility] Comment on above: Performed By: #### F EIBC, RTCS, B12, FERR3, FOLT3 #### [place] [address] [address] [place], [place] Iron, Total 13 ug/dL Low 37-170 [facility] Comment on above: Performed By: #### F EIBC, RTCS, B12, FERR3, FOLT3 #### [place] [address] [address] [place], [place] Leukodepleted Red Cellson Leukodepleted Red Cells Leukodepleted Red Cells: [id number] transfused 10/25/21 07:50 ERR Unit Blood Type: O Unit Blood Rh: NEG Blood Product Code: CP1 Unit Number: [id number] Unit Status: transfused Barcoded Unit Number: =[id number] Barcoded Product Code: = Barcoded ABO/Rh: =%9500 Unit Expiration: Unit Volume Transfused: 250 Unit Transfusion Start Date/Time: Normal [facility] Comment on above: Performed By: #### CAMILLE WEEMS MDIFF #### [place] [address] [address] RBC Morphologyon 10-25-2021 Anisocytosis Ql (Bld) Moderate Normal [facility] Comment on above: Performed By: #### CAMILLE WEEMS MDIFF #### [address] [address] [place] [address] Hypochromia Slight Normal [facility] Comment on above: Performed By: #### CAMILLE WEEMS MDIFF #### [address] [place] [address] Microcytosis Moderate Normal [facility] Comment on above: Performed By: #### CAMILLE WEEMS MDIFF #### [address] [address] [place] [address] Ovalocytes Slight Normal [facility] Comment on above: Performed By: #### CAMILLE WEEMS MDIFF #### [address] [address] [place] [address] Poikilocytosis Slight Normal [facility] Comment on above: Performed By: #### CAMILLE WEEMS MDIFF #### [address] [address] [place] [address] RBC morphology finding Nom (Bld) ABNORMAL Normal [facility] Comment on above: Performed By: #### CAMILLE WEEMS MDIFF #### [address] [address] [place] [address] Tear Drop Forms Slight Normal [facility] Comment on above: Performed By: #### B CAMILLE SWAIN MDIFF #### [place] [address] [address] [place], [place] Retic Count(%)on 10-25-2021 Retic Count(%) 1.4 Normal [facility] Comment on above: Result Comment: Newb orn < 5% Adults 0.5 - 1.5% Performed By: #### F EIBC, RTCS, B12, FERR3, FOLT3 #### [place] [address] [address] [place], [place] SARS-CoV-2 Antigenon 022 SARS-CoV-2 Antigen Negative Normal Negative [facility] Comment on above: Result Comment: A negative result does not rule out the possibility of SARS-CoV-2 infection. NAAT-based methods should be considered for symptomatic patients presenting greater than seven days after onset of symptoms. Method: Lateral flow immunoassay. Fact sheets for healthcare providers and patients can be found at the following sites: https://www.fda.gov/media/686505/download https://www.fda.gov/media/591534/download Performed By: #### C OVAG, DRGA4, FENTU #### [place] [address] [address] [place], [place] TS GELon 10-25-2021 TS GEL ABO Group: O Rh, Gel: NEG Antibody Screen Gel: NEG Normal [facility] Comment on above: Performed By: #### B CAMILLE SWAIN MDIFF #### [place] [address] [address] [place], [place] Vitamin B12on 10-25-2021 Cobalamin (Vitamin B12) [Mass/Vol] 268 pg/mL Normal 239-931 [facility] Comment on above: Performed By: #### CAMILLE WEEMS MDIFF #### [place] [address] [address] [place], [place] Cobalamin (Vitamin B12) [Mass/Vol] 358 pg/mL Normal 239-931 [facility] Comment on above: Performed By: #### B CAMILLE SWAIN MDIFF #### [place] [address] [address] [place], [place] hCG Qual Pregon 10-25-2021 hCG Qual Preg Negative Normal [facility] Comment on above: Result Comment: Refe rence Range: NEGATIVE Effective 06/28/2019, the reference interval for the qualitative test has been updated. This test detects hCG at concentrations of 10 mIU/L or greater in serum. Performed By: #### B MP3M, HEMDF, MDIFF #### [facility] [address] [place] [address] ED Provider Noteon 2 ED Provider Note [facility] DEPT EMERGENCY DEPARTMENT ENCOUNTER Pt Name: Zack Jameson Birthdate 1990 Date of evaluation: 10/24/2021 Provider: Citlali Shaw, DO CHIEF COMPLAINT Chief Complaint Patient presents with ? Addiction Problem Pt here for detox from opiates (pills) and meth (smoke). Last use was 1 hr ago. Pt does not have hx of seizures with detox. Pt currents not yet having any detox symptoms HISTORY OF PRESENT ILLNESS (Location/Symptom, Timing/Onset, Context/Setting, Quality, Duration, Modifying Factors, Severity) Note limiting factors. I wore a kn95 mask for the entirety of this encounter. HPI Zack Jameson is a 31 y.o. female who presents to the emergency department with desire to detox. Started using meth at age 16 (gave to her by her mom). Currently using 8 ball/day (3.5 grams) smoked or snorted. Using oxycotin and percocet from a family member. Last used oxycontin and meth last night at 1900. Denies current signs of withdrawal. Have previously attempted detox around 4 years ago and was sober for 45 days before relapsing. Currently lives in in a trailer with her cat in a storage unit by herself. Her mom/aunt come to the storage unit to check on her. Had gastric bypass in 2016. Is supposed to get iron infusions at [facility] but has not had one since 2016 due to drug use. Does have history of gastric ulcer. Denies current dark or bloody stools, or GI sx. Suicide attempt in 2018 (took 150 seroquel). Had suicidal thoughts yesterday but denies plan or current SI. States that she and her boyfriend went to assisted in July, and its been hard because he is still in there and she is out by herself now. Taking Paxil 30mg and Seroquel 150mg daily for depression. Nursing Notes were reviewed. REVIEW OF SYSTEMS (2+ for level 4; 10+ for level 5) Review of Systems Constitutional: Negative for chills and fever. Respiratory: Negative for chest tightness and shortness of breath. Cardiovascular: Negative for chest pain and palpitations. Endocrine: Positive for cold intolerance. PAST MEDICAL HISTORY Past Medical History: Diagnosis Date ? Anxiety ? Deficiency of multiple nutrient elements ? Depression ? Fatigue ? Intestinal malabsorption ? Joint pain ? Menses, irregular ? Obesity ? Snores ? SOB (shortness of breath) ? Ulcer 04/03/2016 nonbleeding cratered ulcer ? Ulcer of jejunum 04/02/2016 ? Vitamin D deficiency SURGICAL HISTORY Past Surgical History: Procedure Laterality Date ? CHOLECYSTECTOMY, LAPAROSCOPIC 08/18/2015 Lap Joan- Manny ? DILATION AND CURETTAGE OF UTERUS d/t molar ? GASTRIC BYPASS SURGERY ? YOVANI-EN-Y GASTRIC BYPASS 01/08/2015 LRYGB-MANNY ? UPPER GASTROINTESTINAL ENDOSCOPY 04/03/2016 post op-Dr. Sarina Kelly ? UPPER GASTROINTESTINAL ENDOSCOPY CURRENT MEDICATIONS Previous Medications BACLOFEN (LIORESAL) 10 MG TABLET Take 1 tablet by mouth 3 times daily CALCIUM CARBONATE (OSCAL) 500 MG TABS TABLET Take 500 mg by mouth 3 times daily Indications: supplement CALCIUM ELEMENTAL (OSCAL) 500 MG TABS TABLET Take 1 tablet by mouth 3 times daily CHOLECALCIFEROL (HM VITAMIN D3) 4000 UNITS CAPS Take 4,000 Int'l Units by mouth daily RD Vitamin Replacement Protocol CYANOCOBALAMIN 1000 MCG TABLET Take 1 tablet by mouth once a week FERROUS SULFATE 325 (65 FE) MG TABLET Take 1 tablet by mouth daily (with breakfast) GABAPENTIN (NEURONTIN) 100 MG CAPSULE Take 1 capsule by mouth 3 times daily for 7 days.. MULTIPLE VITAMINS-IRON (MULTIVITAMIN/IRON PO) Take 1 tablet by mouth daily Indications: Supplement MULTIPLE VITAMINS-IRON (ONE DAILY MULTIVITAMIN/IRON) TABS Take 2 tablets by mouth daily RD Vitamin Replacement Protocol OMEPRAZOLE (PRILOSEC) 20 MG DELAYED RELEASE CAPSULE Take 1 capsule by mouth daily PAROXETINE (PAXIL CR) 25 MG EXTENDED RELEASE TABLET Take 25 mg by mouth every morning PAROXETINE (PAXIL) 20 MG TABLET Take 1 tablet by mouth daily QUETIAPINE (SEROQUEL XR) 150 MG TB24 EXTENDED RELEASE TABLET Take 150 mg by mouth nightly QUETIAPINE (SEROQUEL XR) 150 MG TB24 EXTENDED RELEASE TABLET Take 1 tablet by mouth nightly SUCRALFATE (CARAFATE) 1 GM TABLET Take 1 tablet by mouth 3 times daily Crush and mix in applesauce or yogurt SUCRALFATE (CARAFATE) 1 GM TABLET Take 1 tablet by mouth 3 times daily ALLERGIES Vistaril [hydroxyzine hcl] and Adhesive tape FAMILY HISTORY Family History Problem Relation Age of Onset ? Substance Abuse Mother ? Substance Abuse Father SOCIAL HISTORY Social History Socioeconomic History ? Marital status: Single Spouse name: None ? Number of children: None ? Years of education: None ? Highest education level: None Occupational History ? Occupation: unemployed Tobacco Use ? Smoking status: Current Every Day Smoker Packs/day: 0.50 Types: Cigarettes ? Smokeless tobacco: Never Used Vaping Use ? Vaping Use: Never used Substance and Sexual Activi (more content not included)... Normal [facility] ED Provider Note Emergency Department Encounter [facility] EMERGENCY DEPT Patient: Zack Jameson : 1990 Date of Evaluation: 10/24/2021 ED Supervising Physician: Preeti Garsia DO I independently examined and evaluated Zack Jameson. In brief, Zack Jameson is a 31 y.o. female that presents to the emergency department requesting detox from opioids and methamphetamine. Last use about 12 hours ago. Also is due for an iron infusion due to iron deficiency anemia. She is post gastric bypass. She is Focused exam: Vital signs noted. Well-appearing patient lying in bed, normal respiratory pattern without conversational dyspnea or respiratory distress. Normal speech and mental status. Radial pulses 2+ and symmetrical bilaterally. Brief ED course/MDM: Patient has been consented for blood transfusion and understands the risk and benefits of transfusion. We will work towards transfusion, will bring her into the hospital with inpatient addiction consultation. All diagnostic, treatment, and disposition decisions were made by myself in conjunction with the Resident. I also supervised cho portions of any procedures performed by the Resident. For all further details of the patient's emergency department visit, please see their documentation. (Please note that portions of this note may have been completed with a voice recognition program. Efforts were made to edit the dictations but occasionally words are mis-transcribed.) Preeti Garsia, DO [employer] Preeti Garsia, DO 10/25/21 0424 Normal [facility] GC/Chlamydia Amp, Uron 01-30 Chlamydia Amplif, Ur Normal [facility] Comment on above: Result Comment: Nega tive for For screening asymptomatic women, a vaginal swab specimen (APTIMA vaginal swab 546160) is optimal. Urine specimens have reduced sensitivity for Chlamydia trachomatis or Neisseria gonorrhoeae infection in female patients without symptoms. This test was developed and its performance characteristics determined by [facility] [place] ([facility]). It has not been cleared or approved by the FDA. RT [facility] is regulated under CLIA as qualified to perform high complexity testing. This test is used for clinical purposes. It should not be regarded as investigational or for research. Chlamydia For screening asymptomatic women, a vaginal swab specimen (APTIMA vaginal swab 794180) is optimal. Urine specimens have reduced sensitivity for Chlamydia trachomatis or Neisseria gonorrhoeae infection in female patients without symptoms. This test was developed and its performance characteristics determined by [facility] [place] ([facility]). It has not been cleared or approved by the FDA. RT [facility] is regulated under CLIA as qualified to perform high complexity testing. This test is used for clinical purposes. It should not be regarded as investigational or for research. trachomatis by For screening asymptomatic women, a vaginal swab specimen (APTIMA vaginal swab 044701) is optimal. Urine specimens have reduced sensitivity for Chlamydia trachomatis or Neisseria gonorrhoeae infection in female patients without symptoms. This test was developed and its performance characteristics determined by [facility] [place] ( [facility]). It has not been cleared or approved by the FDA. RT [facility] is regulated under CLIA as qualified to perform high complexity testing. This test is used for clinical purposes. It should not be regarded as investigational or for research. amplification. For screening asymptomatic women, a vaginal swab specimen (APTIMA vaginal swab 538876) is optimal. Urine specimens have reduced sensitivity for Chlamydia trachomatis or Neisseria gonorrhoeae infection in female patients without symptoms. This test was developed and its performance characteristics determined by [facility] [place] ([facility]). It has not been cleared or approved by the FDA. [facility] is regulated under CLIA as qualified to perform high complexity testing. This test is used for clinical purposes. It should not be regarded as investigational or for research. Performed By: #### U GCCT #### [facility] Routine Lab [address], [place] [address] GC Amplification, Ur NGNEG Normal [facility] Comment on above: Performed By: #### U GCCT #### [facility] Routine Lab [address], [place] [address] GC/Chlamydia Amp, Uron 09-28 Chlamydia Amplif, Ur Normal [facility] Comment on above: Result Comment: Nega tive for For screening asymptomatic women, a vaginal swab specimen (APTIMA vaginal swab 875011) is optimal. Urine specimens have reduced sensitivity for Chlamydia trachomatis or Neisseria gonorrhoeae infection in female patients without symptoms. This test was developed and its performance characteristics determined by [facility] [place] ([facility]). It has not been cleared or approved by the FDA. [facility] is regulated under CLIA as qualified to perform high complexity testing. This test is used for clinical purposes. It should not be regarded as investigational or for research. Chlamydia For screening asymptomatic women, a vaginal swab specimen (APTIMA vaginal swab 435031) is optimal. Urine specimens have reduced sensitivity for Chlamydia trachomatis or Neisseria gonorrhoeae infection in female patients without symptoms. This test was developed and its performance characteristics determined by [facility] and [facility] [place] ([facility]). It has not been cleared or approved by the FDA. [facility] is regulated under CLIA as qualified to perform high complexity testing. This test is used for clinical purposes. It should not be regarded as investigational or for research. trachomatis by For screening asymptomatic women, a vaginal swab specimen (APTIMA vaginal swab 717885) is optimal. Urine specimens have reduced sensitivity for Chlamydia trachomatis or Neisseria gonorrhoeae infection in female patients without symptoms. This test was developed and its performance characteristics determined by [facility] and [facility] [place] ([facility]). It has not been cleared or approved by the FDA. [facility] is regulated under CLIA as qualified to perform high complexity testing. This test is used for clinical purposes. It should not be regarded as investigational or for research. amplification. For screening asymptomatic women, a vaginal swab specimen (APTIMA vaginal swab 313945) is optimal. Urine specimens have reduced sensitivity for Chlamydia trachomatis or Neisseria gonorrhoeae infection in female patients without symptoms. This test was developed and its performance characteristics determined by [facility] [place] ([facility]). It has not been cleared or approved by the FDA. [facility] is regulated under CLIA as qualified to perform high complexity testing. This test is used for clinical purposes. It should not be regarded as investigational or for research. Performed By: #### U GCCT #### [facility] Routine Lab [address], [place] [id number] GC Amplification, Ur NGNEG Normal [facility] Comment on above: Performed By: #### U GCCT #### [facility] Routine Lab [address], [place] [id number] MINDYOVherman 03-27-2018 CNOV Office Visit (AGPLAHWW) ---------ZACK JAMESON ([id number]) 1990 FDate Time Provider Qlqregnukw29/11/18 12:00 PM RALPH SIERRA During your visit today, we recorded the following information about you: Weight Height 91.5 kg 1.549 Chasidy Sierra MD 03/27/2018 12:29 PM Lavonne Jameson is a 27 year old female referred by Jeff todiscussPanniculectomy. Patient is s/p Gastric bypass: laparoscopic:and hasExcess skin and fat they would like removed.Patients weight has been stable for patient has gained 11 poundsHighest weight 336lbs ,Present weight is Ht 154.9 cm (5' 1) Wt 91.5 kg (201 lb 12.8 oz) BMI38.13 kg/m? BMI 38.13 kg/(m2)The patient does complain of intertrigo with dermatitis occuring on the opposedsurface of the skin.The patient states that the infections have been recurrentfor without improvement over the past year and a hlaf.Trouble with clothes fitting properly: Yes, pants and shirts fitting correctlyTreatments tried: Cream: unknown nameSpecific name of medication: unkownSpecific examples of daily living affected by pannus trouble walking, selfesteemHistory of abdominal hernia No .History of Bleeding Disorder: NoHistory of DVT/Pulmonary Embolism: NoHistory of MRSA: Yes, MRSA InfectionHistory of Diabetes: NoHistory of Sleep Apnea: NoHistory of HTN: NoPAST MEDICAL HISTORYDiagnosis Date- MRSA carrier 2017PAST SURGICAL HISTORYProcedure Laterality Date- CHOLECYSTECTOMY 2014- GASTRIC BYPASS HX 2015Social History Marital status: Single Spouse name: Years of education: Number of children:Social History Main Topics Smoking status: Current Every Day Smoker Packs/day: 0.00 Years: 0.00 Last attempt to quit: 10/14/2017 Smokeless tobacco: Current User Alcohol use: No Drug use: No Comment: patient just completed a 45 day rehab programROS:Constitutional: No fever, sweats, or chills, No fatigue, anorexia or weightloss >5 lbs, No adenopathySkin: Negative for lesions, rash, and itching.Physical Exam:General Appearance: Well appearing, alert, in no acute distress, well-hydrated,well nourished..Skin: Skin color, texture, turgor normal, no suspicious rashes or lesions.Abdomen: Normal abdominal exam, Abdomen soft, non-tender. Bowel sounds normal.No masses, organomegalyNeuro: Awake, alert, normal tonePhotos: Will obtain photos todayPLAN:Patient has gained 11 pounds since last visits and has also started smoking. Wedo need to her to quit smoking and her weight to be stable to proceed withsubmitting to insurance. She will follow up in 6 months.The risks, benefits and options were discussed with the pt. The risks includedbut not limited to pain, bleeding, infection, heavy scarring, damage tosurrounding structures, fluid collections, asymmetry, and need for furtherprocedures. All of Her questions were answered to her satisfaction and Sheagrees to proceed with the operation.Shaniqua Garciaribe Attestation Statement:Scribe Statement: I, Hien Christy LPN, pan scribing for, and in thepresence ofRalph Sierra MD.Scribe: PRASAD Andradelinician Attestation Statement: The information in this document, created bythe medical territory manager for me, accurately reflects the services I personallyperformed and the decisions made by me. 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 VITAMIN B-12 ORAL Take by mouth. IRON-C ORAL Take by mouth. 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 Patient is s/p Gastric bypass: laparoscopic:and hasExcess skin and fat they would like removed.Patients weight has been stable for patient has gained 11 poundsHighest weight 336lbs ,Present weight is Ht 154.9 cm (5' 1) Wt 91.5 kg (201 lb 12.8 oz) BMI 38.13 kg/m? BMI 38.13 kg/(m2)The patient does complain of intertrigo with dermatitis occuring on theopposed surface of the skin.The patient states that the infections havebeen recurrent for without improvement over the past year and a hlaf.Trouble with clothes fitting properly: Yes, pants and shirts fittingcorrectlyTreatments tried: Cream: unknown nameSpecific name of medication: unkownSpecific examples of daily living affected by pannus trouble walking, selfesteemHistory of abdominal hernia No .History of Bleeding Disorder: NoHistory of DVT/Pulmonary Embolism: NoHistory of MRSA: Yes, MRSA InfectionHistory of Diabetes: NoHistory of Sleep Apnea: NoHistory of HTN: NoPAST MEDICAL HISTORYDiagnosis Date- MRSA carrier 2017PAST SURGICAL HISTORYProcedure Laterality Date- CHOLECYSTECTOMY 2014- GASTRIC BYPASS HX 2015Social History Marital status: Single Spouse name: Years of education: Number of children:Social History Main Topics Smoking status: Current Every Day Smoker Packs/day: 0.00 Years: 0.00 Last attempt to quit: 10/14/2017 Smokeless tobacco: Current User Alcohol use: No Drug use: No Comment: patient just completed a 45 day rehab programROS:Constitutional: No fever, sweats, or chills, No fatigue, anorexia orweight loss >5 lbs, No adenopathySkin: Negative for lesions, rash, and itching.Physical Exam:General Appearance: Well appearing, alert, in no acute distress,well-hydrated, well nourished..Skin: Skin color, texture, turgor normal, no suspicious rashes or lesions.Abdomen: Normal abdominal exam, Abdomen soft, non-tender. Bowel soundsnormal. No masses, organomegalyNeuro: Awake, alert, normal tonePhotos: Will obtain photos todayPLAN:Patient has gained 11 pounds since last visits and has also startedsmoking. We do need to her to quit smoking and her weight to be stable toproceed with submitting to insurance. She will follow up in 6 months.The risks, benefits and options were discussed with the pt. The risksincluded but not limited to pain, bleeding, infection, heavy scarring,damage to surrounding structures, fluid collections, asymmetry, and needfor further procedures. All of Her questions were answered to hersatisfaction and She agrees to proceed with the operation.Ralph Sierra [facility] Attestation Statement:Scribe Statement: I, Hien Christy LPN, pan scribing for, and in thepresence ofRalph Sierra MD.Scribe: PRASAD Andradelinician Attestation Statement: The information in this document, createdby the medical territory manager for me, accurately reflects the services Ipersonally performed and the decisions made by me. I have reviewed andapproved this document for accuracy.Ralph Sierra MD [facility] CNCOon 11-28-2017 CNCO Letter Text Ralph Sierra MD, [facility] [address] [place] [address], [address] Streethone: [phone] ([phone]) [employer] 2017[facility] Insurance Company: [facility] CenterInsured: Zack [facility] Number: [id number] Number: [id number] Whom It May Concern,I am writing on behalf of my patient, Zack Jameson, to request priorauthorization for a panniculectomy.Patient History and Diagnosis:Zack Jameson is a 27 year old female with a 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 Patient seen onconsultation on 11/14/2017. Zack underwent bariatric surgery December 2014.At that time she weighed 336 pounds. Today she has a current height of 5'1and a weight of 191 pounds. She states her weight has been stable for almosttwo years. Additionally, Zack Jameson has previously tried and failed thefollowing treatments: alcohol to keep the area clean and she states herprimary care prescribed her a prescription cream a few years ago. The rasheshave been going on for over two years now. She states the large pannusaffects her daily living activities such as fitting into clothing properly,exercise, social embarrassment and poor self esteem.Based on the above facts, I am confident you will agree that CPT 21502 withdiagnosis codes E65 and L30.4 is indicated and medically necessary for thispatient. This would be done as an outpatient procedure at [facility] TAX ID#: [id number] NPI#[id number]. Please see the enclosedphotographs for further details.If you have any further questions, please feel free to contact my office.Thank you in advance for your immediate attention to this request.Sincerely,Ralph Sierra MDNPI: [id number] NPI: [id number] ID: [id number] [facility] 11-14-2017 OV Office Visit (AGPLAHWW) ---------ZACK JAMESON ([id number]) 1990 [facility] Time Provider Department11/14/17 2:30 PM RALPH SIERRA AGPLAHWHaley During your visit today, we recorded the following information about you: Weight Height 86.2 kg 1.549 Chasidy Sierra MD 11/14/2017 3:33 PM AddendumJamibrooke Jameson is a 27 year old female referred by Dr. Aguilar , todiscussPanniculectomy. Patient is s/p Gastric bypass: laparoscopic:and hasExcess skin they would like removed.Patients weight has been stable for 1.5 yearsHighest weight 336lb ,Present weight is Ht 154.9 cm (5' 1) Wt 86.2 kg (190 lb) BMI 35.90 kg/m? BMI 35.90 kg/(m2)The patient does complain of intertrigo with dermatitis occuring on the opposedsurface of the skin.The patient states that the infections have been recurrentfor with AND without improvement over the past 1 year.Trouble with clothes fitting properly: Yes, Shirts and pants fitting correctlyTreatments tried: Cream: unkown name otcSpecific name of medication:Specific examples of daily living affected by pannus trouble walking, socially,clothes fitting properly, recurrent infections, self esteemHistory of abdominal hernia No .History of Bleeding Disorder: NoHistory of DVT/Pulmonary Embolism: NoHistory of MRSA: YESHistory of Diabetes: NoHistory of Sleep Apnea: NoHistory of HTN: NoPAST MEDICAL HISTORYDiagnosis Date- MRSA carrier 2017PAST SURGICAL HISTORYProcedure Laterality Date- CHOLECYSTECTOMY 2014- GASTRIC BYPASS HX 2014Social History Marital status: Single Spouse name: Years of education: Number of children:Social History Main Topics Smoking status: Former Smoker Packs/day: 0.00 Years: 0.00 Quit date: 10/14/2017 Smokeless tobacco: Current UserROS:Constitutional: No fever, sweats, or chills, No fatigue, anorexia or weightloss >5 lbs, No adenopathySkin: Negative for lesions, rash, and itching.Physical Exam:General Appearance: Well appearing, alert, in no acute distress, well-hydrated,well nourished..Skin: Skin color, texture, turgor normal, no suspicious rashes or lesions.Abdomen: Normal abdominal exam, Abdomen soft, non-tender. Bowel sounds normal.No masses, organomegalyNeuro: Awake, alert, normal tonePhotos: Will obtain photos todayPatient states that she does get recurrent umbilicus infections. She does selftreat with alcohol to clean the area.PLAN:We will submit to insurance for the panniculectomy. Patient will need a drainpost. We will test for nicotine prior to surgery. Patient is aware that is shedoes test positive we will cancel surgery.The risks, benefits and options were discussed with the pt. The risks includedbut not limited to pain, bleeding, infection, heavy scarring, damage tosurrounding structures, fluid collections, asymmetry, and need for furtherprocedures. All of Her questions were answered to her satisfaction and Sheagrees to proceed with the operation.Mychal Garcia MD 11/14/2017 3:33 PM AddendumSurgery Scheduling SheetDate Completed: November 14, 2017Patient: Zackruben Jameson : 1990 SSN: [id number] Numbers: [phone] (home)Name of Doctor: Ralph Sierra MDAnesthesia: General Tap Block: NOPatient Status: OutpatientCPT Code(s): 65626Dcabsrmg: ACHTotal Est. Total Time: 4Diagnosis/ one ICD10 code: (E65) Pannus, abdominal (primary encounterdiagnosis)Procedur e(s): panniculectomyImplants or Special Orders:Case #:Scheduled with/date:Date/Time of Surgery:Arrival Time:Pre-testing Date:Consent Faxed:Packet Mailed:MRSA: Yes, MRSA InfectionSmoking: yesRequired to stop:yesDVT-PE: negative Occurrence:Blood Thinners:[place] of medication(s):Medication Allergies: ALLERGIESNo Known AllergiesPatient Weight: Ht 5' 1 (1.55m)Medical or Cardiac Clearance needed: NOPain Management Contract: NoPreferred Post OP Pain Med: Percocet, NoneConsent Signed: YesInsurance Company: [facility] community plan12/05/17 Loaded precert case with Erum Johnson ref # [id number] date span is12/25/17-03/25/18 nurse to contact ca for clinical [place]12/05/17 Faxed clinical with [facility], Dr. Jhon layton, Dr. Yue layton, 2016 PCP notes,emailed photos [place]12/08/17 Approval [facility] auth # [id number] good from 12/25/17-03/25/18 fax received TNClinical person completing sheet: amandaReferring Provider: SELF [[id number]]Allergies As of Date: 11/14/2017(No Known Allergies)Date Reviewed: 11/14/2017Reviewed by: Hien Christy - Fully AssessedReason for Visit: panniculectomy [Other]Primary Visit Diagnosis:Pannus, abdominal [E65]Prescriptions as of 11/14/2017 Sig: MULTIVITAMIN CAPSULE Take 1 capsule by mouth once * BIOTIN ORAL Take by mouth. PAROXETINE 30 MG TABLET Take 20 mg by mouth once leon* QUETIAPINE 100 MG TABLET Take 150 mg by mouth twice da*Problem List As Of Date: 11/14/2017(None)Visit Notes:>> Ralph Kothari Nov 14, 2017 3:21 PM Status: AddendumSurgery Scheduling SheetDate Completed: November 14, 2017Patient: Zack Jameson : 1990 SSN: [id number] Numbers: [phone] (home)Name of Doctor: Ralph Sierra MDAnesthesia: General Tap Block: NOPatient Status: OutpatientCPT Code(s): 91621Yxulshow: ACHTotal Est. Total Time: 4Diagnosis/ one ICD10 code: (E65) Pannus, abdominal (primary encounterdiagnosis)Procedur e(s): panniculectomyImplants or Special Orders:Case #:Scheduled with/date:Date/Time of Surgery:Arrival Time:Pre-testing Date:Consent Faxed:Packet Mailed:MRSA: Yes, MRSA InfectionSmoking: yesRequired to stop:yesDVT-PE: negative Occurrence:Blood Thinners:[place] of medication(s):Medication Allergies: ALLERGIESNo Known AllergiesPatient Weight: Ht 5' 1 (1.55m)Medical or Cardiac Clearance needed: NOPain Management Contract: NoPreferred Post OP Pain Med: Percocet, NoneConsent Signed: YesInsurance Company: [facility] community plan12/05/17 Loaded precert case with Erum Johnson ref # [id number] date span is12/25/17-03/25/18 nurse to contact me for clinical [place]12/05/17 Faxed clinical with [facility], Dr. Yue Ballard, 2016 PCPnotes, emailed photos [place]12/08/17 Approval [facility] auth # [id number] good from 12/25/17-03/25/18 faxreceived TNClinical person completing sheet: [email or web address]: Return if symptoms worsen or fail to improve.Follow-up and Disposition History RecordedEncounter Number: [id number] Status:Closed by RALPH SIERRA MD on 11/14/17 [facility] PROGRESSon 11-14-2017 Protein mass conc HNO ID: [id number] thor: Ralph SierraService: (none)Author Type: PhysicianType: Progress NotesFiled: 11/28/2017 12:53 PMNote Text:Zack Jameson is a 27 year old female referred by Dr. Aguilar , todiscussPanniculectomy. Patient is s/p Gastric bypass: laparoscopic:and hasExcess skin they would like removed.Patients weight has been stable for 1.5 yearsHighest weight 336lb ,Present weight is Ht 154.9 cm (5' 1) Wt 86.2 kg (190 lb) BMI 35.90kg/m? BMI 35.90 kg/(m2)The patient does complain of intertrigo with dermatitis occuring on theopposed surface of the skin.The patient states that the infections havebeen recurrent for with AND without improvement over the past 1 year.Trouble with clothes fitting properly: Yes, Shirts and pants fittingcorrectlyTreatments tried: Cream: unkown name otcSpecific name of medication:Specific examples of daily living affected by pannus trouble walking,socially, clothes fitting properly, recurrent infections, self esteemHistory of abdominal hernia No .History of Bleeding Disorder: NoHistory of DVT/Pulmonary Embolism: NoHistory of MRSA: YESHistory of Diabetes: NoHistory of Sleep Apnea: NoHistory of HTN: NoPAST MEDICAL HISTORYDiagnosis Date- MRSA carrier 2018PAST SURGICAL HISTORYProcedure Laterality Date- CHOLECYSTECTOMY 2014- GASTRIC BYPASS HX 2015Social History Marital status: Single Spouse name: Years of education: Number of children:Social History Main Topics Smoking status: Former Smoker Packs/day: 0.00 Years: 0.00 Quit date: 10/14/2017 Smokeless tobacco: Current UserROS:Constitutional: No fever, sweats, or chills, No fatigue, anorexia orweight loss >5 lbs, No adenopathySkin: Negative for lesions, rash, and itching.Physical Exam:General Appearance: Well appearing, alert, in no acute distress,well-hydrated, well nourished..Skin: Skin color, texture, turgor normal, no suspicious rashes or lesions.Abdomen: Normal abdominal exam, Abdomen soft, non-tender. Bowel soundsnormal. No masses, organomegalyNeuro: Awake, alert, normal tonePhotos: Will obtain photos todayPatient states that she does get recurrent umbilicus infections. She doesself treat with alcohol to clean the area.PLAN:We will submit to insurance for the panniculectomy. Patient will need tiffanie post. We will test for nicotine prior to surgery. Patient is awarethat is she does test positive we will cancel surgery.The risks, benefits and options were discussed with the pt. The risksincluded but not limited to pain, bleeding, infection, heavy scarring,damage to surrounding structures, fluid collections, asymmetry, and needfor further procedures. All of Her questions were answered to hersatisfaction and She agrees to proceed with the operation.Ralph Sierra MD Normal [facility] ABORH Captureon 02-23-2017 ABORH Capture Negative Normal [facility] Antibody 3 Cell Scrn Capture on 02-23-2017 Antibody 3 Cell Scrn Capture Negative Normal [facility] CBC With Platelet and Differ entialon 02-23-2017 Anisocytosis presence 2+ Normal [facility] Ovalocytes 1+ Normal [facility] Poikilocytosis 1+ Normal [facility] Basophils Auto #/vol (Bld) 0.05 E9/L Normal 0.00-0.20 [facility] Basophils/100 WBC Auto (Bld) 0.7 % Normal 0.0-2.0 [facility] Eosinophils 0.15 E9/L Normal 0.05-0.50 [facility] Eosinophils/100 leukocytes 2.0 % Normal 0.0-6.0 [facility] Erythrocyte distribution width Auto Ratio (RBC) 20.1 fL High 11.5-15.0 [facility] Erythrocytes (RBC) 4.15 E12/L Normal 3.50-5.50 [facility] Granulocytes/100 WBC (Bld) 0.3 % Normal 0.0-5.0 [facility] Granulocytes/100 WBC (Bld) 0.02 E9/L Normal [facility] Hematocrit (HCT) 29.6 % Low 34.0-48.0 [facility] Hemoglobin mass conc (Bld) 8.9 g/dL Low 11.5-15.5 [facility] Lymphocytes 2.56 E9/L Normal 1.50-4.00 [facility] Lymphocytes/100 leukocytes 33.4 % Normal 20.0-42.0 [facility] MCH 21.4 pg Low 26.0-35.0 [facility] MCHC mass conc (RBC) 30.1 % Low 32.0-34.[address] [facility] MCV 71.3 fL Low 80.0-99.9 [facility] Monocytes 0.57 E9/L Normal 0.10-0.95 [facility] Monocytes/100 leukocytes 7.4 % Normal 2.0-12.0 [facility] Neutrophils 4.32 E9/L Normal 1.80-7.30 [facility] Neutrophils/100 leukocytes 56.2 % Normal 43.0-80.0 [facility] Platelet mean volume (PMV) 10.3 fL Normal 7.0-12.0 [facility] Platelets 379 E9/L Normal 130-450 [facility] WBC (Leukocytes) 7.7 E9/L Normal 4.5-11.5 [facility] Chlamydia GC DNA Amplificati onon 02-23-2017 Chlamydia GC DNA Amplification Chlamydia trachomatis DNA Amplification-: Negative for C. Trachomatis rRNAResults should be interpreted in conjunction with otherlaboratory and clinical data available to the clinician.Neisseria gonorrhoeae DNA Amplification-: Negative for N. gonorrhoeae rRNAResults should be interpreted in conjunction with otherlaboratory and clinical data available to the clinician. Normal [facility] Comprehensive Metabolic Pane stephen 02-23-2017 Alanine aminotransferase (ALT) 14 U/L Normal 0-32 [facility] Albumin 4.3 g/dL Normal 3.5-5.2 [facility] Alkaline phosphatase (ALP) 63 U/L Normal 35-104 [facility] Anion gap 12 mmol/L Normal 7-16 [facility] Aspartate aminotransferase (AST) 21 U/L Normal 0-31 [facility] Bilirubin (total) 0.3 mg/dL Normal 0.0-1.2 [facility] Calcium 9.6 mg/dL Normal 8.6-10.2 [facility] Chloride 102 mmol/L Normal 98-107 [facility] CO2 26 mmol/L Normal 22-29 [facility] Creatinine 0.5 mg/dL Normal 0.5-1.0 [facility] eGFR (black) mL/min/{1.73_m2} Normal [facility] eGFR (non-black) mL/min/{1.73_m2} Normal >=60 [facility] Comment on above: Result Comment: Hammer Mill 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 Kidney Failure: less than 15 ml/min/1.73 sq.m.Results valid for patients 18 years and older. Glucose mass conc 161 mg/dL High 74-109 [facility] Potassium molar conc 4.0 mmol/L Normal 3.5-5.0 [facility] Protein 7.1 g/dL Normal 6.4-8.3 [facility] Sodium 140 mmol/L Normal 132-146 [facility] Urea nitrogen 8 mg/dL Normal 6-20 [facility] Culture, Urineon 02-23-2017 Culture, Urine Culture, Urine-: Growth not present Normal [facility] ED Noteon 02-23-2017 HIM IP Note OR Senior Net Programmer Normal [facility] HIM IP Note OR Senior Net Programmer Normal [facility] HIM IP Note OR Senior Net Programmer Normal [facility] ED Provider Noteon 7 HIM IP Note OR Senior Net Programmer Normal [facility] HCG Quanton 02-23-2017 HCG Quant 72114.0 mIU/mL High <10 [facility] Comment on above: Result Comment: The TOTAL HCG QUANT test is not intended for anyuse other than assessment of status. Rh Immune Globulinon Rh Immune Globulin RhImmuneGlobulin RVP [id number] issued 1 vial 02/23/17 20:01 Normal [facility] US OB TRANSVAGINALon 017 OB TRANSVAGINAL Patient 8DOB: 1990Age: 26 yearsGender: FemaleOrder Date: 02/23/2017 7:34 PMEXAM: US OB TRANSVAGINALINDICATION: vaginal bleeding, positive test COMPARISON: NoneNUMBER OF IMAGES: 48FINDINGS: Real-time ultrasound of the pelvis was performed using transabdominaland transvaginal technique. There is extensive complex/heterogeneousmateri al within the endometrial cavity. There is some surroundingfluid within the canal. The abnormal intraendometrial contents measureapproximately 6.0 x 2.5 x 2.8 cm in size. It does not have the typicalsnowstorm appearance of a molar but this cannot be excluded.Spontaneous with retained products of conception and largeblood clots is included in the differential. There is no evidence of afetal pole or yolk sac.The uterus is anteverted and measures 9.2 x 5.1 x 7.4 cm. The rightovary is not seen. The left ovary measures 3.0 x 2.0 x 2.3 cm anddemonstrates normal blood flow. No adnexal masses or free fluid isseen.CONCLUSION: 1. Large heterogeneous mass within the endometrial cavity as describedabove. While this does not have the typical snowstorm appearance of amolar this cannot be excluded. Spontaneous withretained products of conception and/or large blood clots are includedin the differential as is possible partial mole with embryonic demisethat is not visible on this study.2. Normal left ovary. Right ovary not seen. No adnexal masses.Findings phoned to Dr. Omalley at 7:55 PMALERT: THIS IS AN ABNORMAL REPORTInterpreted by:EMY Parksigned by:Heide Leonard MD02/23/17Final result Normal [facility] Urinalysis, reflex to micros copicon 02-23-2017 Bilirubin Ql (U) Negative Normal Negative [facility] Urine, clarity Clear Normal Clear [facility] Urine, color Yellow Normal Straw/[place] ow [facility] Urine, glucose presence Negative Normal Negative [facility] Urine, hemoglobin presence SMALL Abnormal Negative [facility] Urine, ketones presence Negative Normal Negative [facility] Urine, leukocyte esterase presence Negative Normal Negative [facility] Urine, nitrite presence Negative Normal Negative [facility] Urine, pH 7.0 [pH] Normal 5.0-9.0 [facility] Urine, protein presence Negative Normal Negative [facility] Urine, specific gravity 1.010 Normal 1.005-1.03 0 [facility] Urine, urobilinogen 0.2 {Chilo'U}/dL Normal < 2.0 [facility] Urine Microscopicon 02-24-20 17 Urine, bacteria in sediment NONE Normal [facility] Urine, epithelial cells presence in sediment FEW Normal [facility] Urine, erythrocytes NONE Normal 0-2 [facility] Urine, leukocytes NONE Normal 0-5 [facility] Wet Prep-Medical Purposes On mathur 02-23-2017 Wet Prep Clue Cells None Seen Normal [facility] Wet Prep Source VAGINAL Normal [facility] Wet Prep Trichomonas None Seen Normal [facility] Wet Prep Yeast None Seen Normal [facility] Vital Signs Date Time Vital Sign Value Performing Clinician Britta garibay 11-01-2024 09:24-0400 Body height 152.4 cm Falguni ANDRADE Work Phone: [facility] 11-01-2024 09:24-0400 Body mass index (BMI) [Ratio] 40 kg/m2 Falguni Shanks NP-C Work Phone: [facility] 11-01-2024 09:24-0400 Body temperature 97.6 [degF] Falguni Tannhof SR. LOGISTICS ANALYST-C Work Phone: 2(722)[phone] [place] [address] 11-01-2024 09:24-0400 Body weight 92.98 kg Falguni Shanks SR. LOGISTICS ANALYST-C Work Phone: 1(093)[phone] [place] [address] 11-01-2024 09:24-0400 Diastolic blood pressure 68 mm[Hg] Falguni Aragonf SR. LOGISTICS ANALYST-C Work Phone: 1([phone] [address] 11-01-2024 09:24-0400 Heart rate 73 /min Falguni Shanks SR. LOGISTICS ANALYST-C Work Phone: [phone])[phone] [address] 11-01-2024 09:24-0400 Respiratory rate 20 /min Falguni Shanks SR. LOGISTICS ANALYST-C Work Phone: [phone] [place] [address] 11-01-2024 09:24-0400 SaO2% (BldA) [Mass fraction] 96 % Falguni Aragonf SR. LOGISTICS ANALYST-C Work Phone: 2(107)[phone] [place] [address] 11-01-2024 09:24-0400 Systolic blood pressure 103 mm[Hg] Falguni Shanks SR. LOGISTICS ANALYST-C Work Phone: 5([phone] [place] [address] 05-23-2024 12:03-0500 Body height 152.4 cm Gabi DELEON Work Phone: [facility] 05-23-2024 12:03-0500 Body mass index (BMI) [Ratio] 43.75 kg/m2 Gabi DELEON Work Phone: [facility] 05-23-2024 12:03-0500 Body weight 101.61 kg Gabi DELEON Work Phone: [facility] 05-23-2024 12:03-0500 Diastolic blood pressure 77 mm[Hg] Gabi DELEON Work Phone: [facility] 05-23-2024 12:03-0500 Heart rate 71 /min Gabi DELEON Work Phone: [facility] 05-23-2024 12:03-0500 SaO2% (BldA) [Mass fraction] 97 % Gabi Rosie DELEON Work Phone: [facility] 05-23-2024 12:03-0500 Systolic blood pressure 122 mm[Hg] Gabi Rosie DELEON Work Phone: [facility] 07-25-2023 09:03-0400 Body height 152.4 cm [facility] [address] 07-25-2023 09:03-0400 Body mass index (BMI) [Ratio] 42.85 kg/m2 [facility] [address] 07-25-2023 09:03-0400 Body weight 99.52 kg [facility] [address] 07-25-2023 09:03-0400 Diastolic blood pressure 57 mm[Hg] [facility] [address] 07-25-2023 09:03-0400 Heart rate 85 /min [facility] [address] 07-25-2023 09:03-0400 Respiratory rate 14 /min [facility] [address] 07-25-2023 09:03-0400 SaO2% (BldA) [Mass fraction] 97 % [facility] [address] 07-25-2023 09:03-0400 Systolic blood pressure 127 mm[Hg] [facility] [address] 05-18-2023 13:31-0500 Body height 154.9 cm P. Arlene DO Work Phone: [facility] 05-18-2023 13:31-0500 Body mass index (BMI) [Ratio] 41.42 kg/m2 P. Arlene DO Work Phone: [facility] 05-18-2023 13:31-0500 Body temperature 97.7 [degF] P. Arlene DO Work Phone: [facility] 05-18-2023 13:31-0500 Body weight 99.43 kg Lan Jacobs DO Work Phone: [facility] 05-18-2023 13:31-0500 Diastolic blood pressure 83 mm[Hg] Lan Jacobs DO Work Phone: [facility] 05-18-2023 13:31-0500 Heart rate 66 /min PMame Jacobs DO Work Phone: [facility] 05-18-2023 13:31-0500 SaO2% (BldA) [Mass fraction] 99 % Lan Jacobs DO Work Phone: [facility] 05-18-2023 13:31-0500 Systolic blood pressure 116 mm[Hg] Lan Jacobs DO Work Phone: [facility] 02-09-2023 14:28-0400 Body height 152.4 cm [facility] 02-09-2023 14:28-0400 Body mass index (BMI) [Ratio] 42.3 kg/m2 [facility] 02-09-2023 14:28-0400 Body temperature 96.6 [degF] [facility] 02-09-2023 14:28-0400 Body weight 98.42 kg [facility] 02-09-2023 14:28-0400 Diastolic blood pressure 75 mm[Hg] [facility] 02-09-2023 14:28-0400 Heart rate 89 /min [facility] 02-09-2023 14:28-0400 Respiratory rate 18 /min [facility] 02-09-2023 14:28-0400 SaO2% (BldA) [Mass fraction] 98 % [facility] 02-09-2023 14:28-0400 Systolic blood pressure 121 mm[Hg] [facility] 01-16-2023 14:35-0400 Body temperature 98.2 [degF] [facility]YSICIAN [facility] 01-16-2023 14:35-0400 Diastolic blood pressure 83 mm[Hg] PHYSICIAN NO [facility] 01-16-2023 14:35-0400 Heart rate 67 /min PHYSICIAN NO [facility] 01-16-2023 14:35-0400 Respiratory rate 16 /min PHYSICIAN NO [facility] 01-16-2023 14:35-0400 SaO2% (BldA) [Mass fraction] 99 % PHYSICIAN NO [facility] 01-16-2023 14:35-0400 Systolic blood pressure 140 mm[Hg] PHYSICIAN NO [facility] 01-16-2023 09:00-0400 Body weight 94.34 kg PHYSICIAN NO [facility] 01-13-2023 19:30-0400 Body height 152.4 cm PHYSICIAN NO [facility] 10-31-2022 15:45-0400 Reason For Taking VItal Signs AIDA MALONE DO [facility] 10-31-2022 15:27-0400 Blood Pressure Cuff Size AIDA MALONE DO [facility] 10-31-2022 15:27-0400 Blood Pressure Location AIDA MALONE DO [facility] 10-31-2022 15:27-0400 Blood Pressure Method AIDA MALONE DO [facility] 10-31-2022 15:27-0400 Body temperature 98.6 [degF] AIDA Penaloza [facility] 10-31-2022 15:27-0400 Diastolic Blood Pressure Non-Invasive 55 1 AIDA MALONE DO [facility] 10-31-2022 15:27-0400 Heart rate 80 /min AIDA MALONE DO [facility] 10-31-2022 15:27-0400 Mean blood pressure 72 mm[Hg] AIDA Penaloza [facility] 10-31-2022 15:27-0400 Respiratory rate 16 /min AIDA MALONE DO [facility] 10-31-2022 15:27-0400 Systolic Blood Pressure Non-Invasive 125 1 AIDA MALONE DO [facility] 10-31-2022 13:06-0400 Body temperature 97.34 [degF] AIDA MALONE DO [facility] 10-31-2022 13:06-0400 Diastolic Blood Pressure Non-Invasive 78 1 AIDA MALONE DO [address] [place] [address] 10-31-2022 13:06-0400 Heart rate 64 /min AIDA MALONE DO [address] [place] [address] 10-31-2022 13:06-0400 Mean blood pressure 87 mm[Hg] AIDA MALONE DO [address] [place] [address] 10-31-2022 13:06-0400 Respiratory rate 16 /min AIDA MALONE DO [address] [place] [address] 10-31-2022 13:06-0400 Systolic Blood Pressure Non-Invasive 103 1 AIDA MALONE DO [address] [place] [address] 10-31-2022 12:51-0400 Diastolic Blood Pressure Non-Invasive 52 1 AIDA MALONE DO [address] [place] [address] 10-31-2022 12:51-0400 Heart rate 72 /min AIDA MALONE DO [address] [place] [address] 10-31-2022 12:51-0400 Mean blood pressure 66 mm[Hg] AIDA MALONE DO [facility] 10-31-2022 12:51-0400 Respiratory rate 16 /min AIDA AMLONE DO [address] [place] [address] 10-31-2022 12:51-0400 Systolic Blood Pressure Non-Invasive 97 1 AIDA MALONE DO [facility] 10-31-2022 12:36-0400 Body temperature 97.34 [degF] AIDA MENA DO [address] [place] [address] 10-31-2022 12:30-0400 Respiratory Rate - Anes 17 br/min AIDA MENA DO [address] [place] [address] 10-31-2022 12:25-0400 Respiratory Rate - Anes 10 br/min AIDA MENA DO [address] [place] [address] 10-31-2022 12:20-0400 Body temperature 96.84 [degF] AIDA MENA DO [address] [place] [address] 10-31-2022 12:20-0400 Respiratory Rate - Anes 10 br/min AIDA MENA DO [address] [place] [address] 10-31-2022 11:20-0400 Heart rate 76 /min AIDA MENA DO [address] [place] [address] 10-31-2022 10:46-0400 Body temperature 98.06 [degF] AIDA ALVAREZERLY DO [address] [place] [address] 10-31-2022 10:46-0400 Heart rate 83 /min AIDA MENA DO [address] [place] [address] 10-31-2022 07:10-0400 Body temperature 98.06 [degF] AIDA MENA DO [address] [place] [address] 10-31-2022 07:10-0400 Heart rate 89 /min AIDA MENA DO [address] [place] [address] 10-31-2022 05:20-0400 Signs/Symptoms Transfusion Reaction AIDA MENA DO [address] [place] [address] 10-31-2022 04:22-0400 Body height 152.4 cm AIDA MALONE DO [address] [place] [address] 10-31-2022 04:22-0400 Body weight 100.2 kg AIDA ALVAREZERLY DO [address] [place] [address] 10-31-2022 04:22-0400 Body weight 43.14 kg/m2 AIDA ALVAREZERLY DO [facility] 10-31-2022 04:20-0400 Signs/Symptoms Transfusion Reaction AIDA MALONE DO [facility] Encounters Encounter Date Encounter Type Care Provider Facility Start: 11-01-2024 End: 11-01-[address] Jersey Zendejas MD -[facility] Work Phone: Start: 11-01-2024 End: 11-01-2024 ambulatory Falguni Shanks SR. LOGISTICS ANALYST-C Work Phone: -[facility] Start: 09-19-2024 End: 09-19-2024 Office outpatient visit [address] [facility] Comment on above: Excess skin of abdom en (Primary Dx); S/P gastric bypass Start: 09-19-2024 ambulatory Lan Rowell ity:[facility] Start: 08-27-2024 End: 08-27-2024 ambulatory Falguni ZIEGLERC Work Phone: [facility] Work Phone: Start: 08-27-2024 End: 08-27-2024 Patient encounter procedure Falguni Shanks NP-C -Laboratory Vivien Reece Start: 08-27-2024 End: 08-27-2024 ambulatory Falguni Shanks Facility:[facility] Start: 06-26-2024 End: 06-26-2024 ambulatory PREETI AVINA [facility] Start: 05-23-2024 End: 05-23-2024 Office outpatient new 45 minutes Gabi DELEON Work Phone: [facility] Comment on above: Excess skin of abdom en (Primary Dx) Start: 05-23-2024 ambulatory GABI johnsonty:[facility] Start: 05-10-2024 End: 05-10-2024 [facility] Start: 05-10-2024 Encounter for gynecological examination (general) (routine) without abnormal findings MELANIE MOON [facility] Start: 12-19-2023 End: 12-19-2023 ambulatory NAYE RHODES [facility] Start: 12-08-2023 End: 12-08-2023 Emergency department patient visit SHAINA ADLER [facility] Start: 11-01-2023 End: 11-16-2023 ambulatory [facility] Start: 10-25-2023 End: 11-16-2023 ambulatory KEELY [facility] Start: 10-05-2023 End: 10-16-2023 ambulatory KEELY [facility] Start: 09-20-2023 End: 09-20-2023 ambulatory [facility] Start: 08-22-2023 End: 08-26-2023 Evaluation and management of inpatient [facility]ABI [facility] Start: 08-21-2023 End: 08-22-2023 [facility] Start: 07-25-2023 End: 07-25-2023 Office outpatient new 30 minutes [facility] [address] [facility] Comment on above: Excess skin of abdom en (Primary Dx); Depression, unspecified depression type Start: 05-18-2023 ambulatory [facility] Start: 05-18-2023 End: 05-18-2023 Office outpatient visit 25 minutes Lan Beardhen Arlene DO Work Phone: [facility] Comment on above: Stimulant use disord er (Primary Dx); Depression, unspecified depression type; Gastroesophageal reflux disease, unspecified whether esophagitis present Start: 04-22-2023 End: 04-23-2023 Emergency department patient [facility] Start: 04-20-2023 ambulatory [facility] Start: 03-21-2023 ambulatory [facility] Start: 02-21-2023 ambulatory [facility] Start: 02-09-2023 End: 02-09-2023 Emergency department patient visit [facility] Work Phone: Start: 01-13-2023 End: 01-16-2023 Evaluation and management of inpatient Mirza Duff Facility:[facility] Start: 01-13-2023 End: 01-16-2023 Evaluation and management of inpatient PHYSICIAN LOBITO [facility] Work Phone: Start: 01-13-2023 ambulatory Mirza Duff F acility:[facility] Start: 11-28-2022 End: 11-29-2022 ambulatory [facility] Start: 11-25-2022 End: 11-26-2022 ambulatory [facility] Start: 11-24-2022 End: 11-25-2022 ambulatory [facility] Start: 10-31-2022 End: 10-31-2022 Evaluation and management of inpatient DIMPLE TAVERAS MD Facility:A Start: 10-31-2022 End: 10-31-2022 Evaluation and management of inpatient AIDA MENA [facility] Start: 02-14-2022 ambulatory Nancy De Souza [facility] Start: 10-25-2021 End: 11-01-2021 Evaluation and management of inpatient GABRIEL Russ EDDAYAHIR [facility] Start: 12-08-2020 End: 12-08-2020 Emergency department patient visit LINCOLN IVEY Work Phone: [facility] Start: 09-25-2018 Patient encounter procedure RALPH SIERRA Facility:[facility] Start: 03-27-2018 End: 03-27-2018 Patient encounter procedure RALPH SIERRA Facility:[facility] Start: 03-26-2018 End: 03-26-2018 Patient encounter procedure MARYCARMEN ENCINAS[facility] Start: 11-14-2017 End: 11-14-2017 Patient encounter procedure RALPH SIERRA Facility:[facility] Start: 11-08-2017 End: 11-08-2017 Patient encounter procedure CORA MONTANEZ [facility] Start: 02-23-2017 End: 02-23-2017 Emergency department patient visit [facility] Facility:[facility] Procedures Date Procedure Procedure Detail Performing Clinician Start: 08-27-2024 Total iron binding capacity measurement Falguni ANDRADE Work Phone: Start: 05-23-2024 Follow-up visit Follow-up GABI MCLEOD Start: 02-09-2023 X-ray of cervical spine Plan of Treatment Date Care Activity Detail Author Start: 12-16-2024 Influenza vaccination INFLUENZA VACCINE (#1) [facility] Start: 09-19-2024 End: 09-19-2024 Patient encounter procedure 09/19/2024 10:30 AM EDT Office Visit [facility] [address] [place], [place] [id number] [facility] Start: 01-01-2024 End: 01-01-2024 Patient encounter procedure 01/01/2024 9:20 AM EDT Office Visit [facility] [address] [place], [place] [id number] Shivani Rangel MD [address] [place] [address] [facility] Start: 12-17-2023 COVID-19 VACCINE ( season) COVID-19 VACCINE ( season) [facility] Start: 12-17-[address] [facility] Start: 02-09-2023 [facility] Start: 01-16-2023 [facility] Start: 01-13-2023 Referral to Kitchen Utility Associate [facility] Start: 01-13-2023 Hospital admission [facility] Start: 01-13-2023 [facility] Start: 12-16-2022 COVID-19 VACCINE ( season) COVID-19 VACCINE ( season) [facility] Start: 12-16-2022 Influenza vaccination INFLUENZA VACCINE (#1) [facility] Start: 2010 Screening for malignant neoplasm of cervix CERVICAL CANCER SCREENING DISCUSSION [facility] Start: 2008 Hepatitis B vaccination HEP B VACCINE (1 of 3 - 19+ 3-dose series) [facility] Start: 2008 Third diphtheria, tetanus and acellular pertussis (DTaP) vaccination TDAP (ADULT) [facility] Start: 2004 HIV screening HIV SCREENING DISCUSSION [facility] Start: 09-08-1995 PNEUMOCOCCAL VACCINE SERIES (1 of 2 - PCV) PNEUMOCOCCAL VACCINE SERIES (1 of 2 - PCV) [facility] Start: 03-10-1990 COVID-19 VACCINE (#1) COVID-19 VACCINE (#1) [facility] Start: 1989 Hepatitis B vaccination HEP B VACCINE (1 of 3 - 3-dose series) [facility] Start: 1989 Hepatitis C screening HEPATITIS C VIRUS SCREENING [facility] Start: 1989 Tetanus vaccination TETANUS [facility] Choriogonadotropin ( test) [Presence] in Urine POCT URINE Point of Care Testing Routine Stimulant use disorder 05/18/2023 1:35 PM [facility] Patient Education [facility] Work Phone: Patient referral [facility] Work Phone: POCT ALERE DRUG SCREEN POCT ALER E DRUG SCREEN Point of Care Testing Routine Stimulant use disorder 05/18/2023 1:35 PM [facility] Payers Date Payer Category Payer Medicaid (Managed Care) [facility] [id number] 2023 [facility]-pay [id number] 2022 Medicaid [id number] 2005 Unknown [id number] 1989 Unknown [id number] 2.16.840.1.726934.3.579.2. 278 1989 Unknown [id number] 2.16.840.1.421690.3.579.2. 278 1989 Unknown [id number] 2.16.840.1.853355.3.579.2. 278 1989 Unknown [id number] 2.16.840.1.415454.3.579.2. 297 1989 Unknown [id number] 2.16.840.1.155667.3.579.2. 297 1989 Unknown [id number] 2.16.840.1.693631.3.579.2. 668 1989 Unknown [id number] 2.16.840.1.659849.3.579.2. 668 1989 Unknown [id number] 2.16.840.1.162821.3.579.2. 173 1989 Unknown [id number] 2.16.840.1.067090.3.579.2. 173 1989 Unknown [id number] 2.16.840.1.162962.3.579.2. 173 1989 Unknown [id number] 2.16.840.1.314554.3.579.2. 627 1989 Unknown [id number] 2.16.840.1.241990.3.579.2. 903 1989 Unknown [id number] 2.16.840.1.898526.3.579.2. 983 1989 Unknown [id number] 2.16.840.1.644121.3.579.2. 983 1989 Unknown [id number] 2.16.840.1.514685.3.579.2. 983 1989 Unknown [id number] 2.16.840.1.223134.3.579.2. 983 1989 Unknown [id number] 2.16.840.1.584730.3.579.2. 983 1989 Unknown [id number] 2.16.840.1.375971.3.579.2. 172 1989 Unknown [id number] 2.16.840.1.089707.3.579.2. 176 1989 Unknown [id number] 2.16.840.1.855826.3.579.2. 1285 1989 Unknown [id number] 2.16840.1.411794.3.579.2. 1285 1989 Unknown [id number] 2.16840.1.326972.3.579.2. 1285 1989 Unknown [id number] 2.16.840.1.673568.3.579.2. 1285 1989 Unknown [id number] 2.16.840.1.605313.3.579.2. 1285 1989 Unknown [id number] 2.16.840.1.426894.3.579.2. 1285 1989 Unknown [id number] 2.16.840.1.844211.3.579.2. 1285 1989 Unknown [id number] 2.16.840.1.030196.3.579.2. 651 1989 Unknown [id number] 2.16.840.1.621147.3.579.2. 651 1989 Unknown [id number] 2.16.840.1.370567.3.579.2. 651 1989 Unknown [id number] 2.16.840.1.076691.3.579.2. 651 1989 Unknown [id number] 2.16.840.1.149596.3.579.2. 594 1989 Unknown [id number] 2.16.840.1.508297.3.579.2. 594 Medicaid [id number] Private Health Insurance Unknown [facility] [id number] Unknown Unknown [id number] 2.16.840.1.867505.3.579.2. 531 Unknown [id number] 2.16.840.1.077800.3.579.2. 531 Unknown [id number] 2.16.840.1.787098.3.579.2. 462 Unknown [id number] 2.16.840.1.946930.3.579.2. 462 Social History Date Type Detail Facility Start: 12-08-[facility] Work Phone: Start: 12-08-2020 Unknown [facility] Work Phone: Start: 12-08-2020 No [facility] Work Phone: Start: 1989 Sex Assigned At Female A [facility] Start: 01-14-2023 [facility] Start: 02-09-2023 [facility] if ever smoked [facility] Start: 12-19-2018 With Family [facility] Start: 02-09-2023 End: 05-18-2023 Tobacco smoking status NHIS Smokes tobacco daily [facility] History of tobacco use Cigarette Smoker [facility] [employer] Start: 05-18-2023 End: 05-23-2024 Cigarettes smoked current (pack per day) [facility] Start: 05-18-2023 End: 05-23-2024 Alcohol intake Current drinker of alcohol (finding) [facility] Start: 05-18-2023 End: 05-23-2024 Tobacco use panel [facility] Start: 02-28-2017 Alcohol Comment 1 per month [facility] Start: 1989 Sex Assigned At Not on file A [facility] Start: 02-28-2017 Gender identity Identifies as female gender (finding) [facility] Start: 05-23-2024 End: 11-01-2024 Tobacco smoking status NHIS Ex-smoker [facility] Start: 02-28-2017 Sex Female (finding) [facility] Medical Equipment Procedure Code Equipment Code Equipment Origin al Text Equipment Identifier Dates Nexplanon 68mg [id number] Start: 03-01-2017 Goals Date Patient Goal Desired Activity /State Functional Status Date Assessment Result Facility 01-16-2023 Functional status Patient at Baseline [facility] Work Phone: 10-31-2022 Functional Status None [facility] 10-31-2022 Functional Status Dinner Percent 100 [facility] 10-31-2022 Functional Status Room check performed [facility] 10-31-2022 Functional Status [facility] 10-31-2022 Functional Status [facility] 10-31-2022 Functional Status Hospital bed [facility] 03-01-2017 Are you deaf, or do you have serious difficulty hearing No 03/01/2017 3:09 AM Stephanie Yepez, JAYLON No [facility] 03-01-2017 Are you blind, or do you have serious difficulty seeing, even when wearing glasses No 03/01/2017 3:09 AM Stephanie Yepez, JAYLON No [facility] 03-01-2017 Do you have serious difficulty walking or climbing stairs No 03/01/2017 3:09 AM Stephanie Yepez, JAYLON No [facility] 03-01-2017 Do you have difficul ty dressing or bathing No 03/01/2017 3:09 AM Stephanie Yepez, JAYLON No [facility] 03-01-2017 Because of a physica l, mental, or emotional condition, do you have difficulty doing errands alone such as visiting a physician's office or shopping No 03/01/2017 3:09 AM Stephanie Yepez, JAYLON No [facility] Mental Status Date Assessment Result Facility 01-16-2023 Cognitive function Cognitive Sta tus Patient at Baseline [facility] Work Phone: 10-31-2022 [facility] Mental Status [facility] 10-31-2022 Mental Status [facility] 03-01-2017 Because of a physica l, mental, or emotional condition, do you have serious difficulty concentrating, remembering, or making decisions No 03/01/2017 3:09 AM Stephanie Yepez RN No [facility] Clinical Notes 10-27-2021 to 09-19-2024 Ibanca Elder - 09/19/2024 10:30 AM EDPANCHO Garcia - 09/19/2024 10:30 AM EDTPatient Jasbir Corea RN - 05/23/2024 11:20 AM ESTPatient InstructionsPatient Instructions Note Date & Type Note Facility 09-19-2024 History of Presen t illness Narrative Patient arrived via ambulatory. Accompanied by Alone. Pt here to see Dr. Mcleod for preop. Patient was knowledgeable of all their medications, and medication list was reconciled in IHIS.. Allergies reviewed with pt. Pictures taken using i'mma yocasta and uploaded in media tab in IHIS. Zack Jameson verbally agreed to have pictures taken for documentation of continuity of medical care. ,Chief Complaint: Chief Complaint Patient presents with Pre-operative Consultation SENECA: Ms. Jameson is a 34 y.o. female who presents for evaluation of body contouring after massive weight loss. The patient underwent gastric bypass and has lost approximately 200 pounds. she has been at a stable weight for 24 months. The patient now has complaints of excess skin in the following areas: panni/mons/thighs. Pertaining to the excess skin: The patient does not have an associated ventral hernia. The patient does have difficulty getting in and out of bed The patient does have difficulty standing and walking straight The patient does have difficulty tying her shoes The patient does have difficulty crossing her legs The patient does have difficulty finding clothes that fit appropriately The patient does have recurrent skin rashes/skin infections. Rash has been treated with the following: doesOTC powders/creams. Rash has been treated with the following: does prescription medication/cream. The patient does have foul odors The patient does not have non-healing skin ulcers The patient does have back pain The patient does have ADL's that are being affected by the following: The patient does have excess skin that gets caught in clothing/zipper. The patient does have difficulty breathing while sleeping or with exercise. The patient does have emotional distress related to the excess skin. The patient has been suffering from the above symptoms for 24 months. follow up for excess skin abd, last seen by me05/23/24 and was advised needed additional weight loss prior to reconstructive candidancy, PLAN: PIC, body contouring questionaire, lost 14 lbs but needs more, current BMI 40, needs BMI 35 or less and then see me. documented in this encounter [facility] 09-19-2024 Instructions Katharine Romano RN - 09/19/2024 10:30 AM EDT Call to schedule appointment when BMI target is met. On behalf of the [facility] staff, it was a pleasure to see you today in clinic. Our clinic serves different doctors and specialties each day. We encourage you to address any further questions you may have with your provider at the phone number listed with his/her name below. For many of our clinics this phone number will be answered by the provider's primary office. Please note that the address provided is the address here at [facility] [address]. We look forward to seeing you again in the future. [facility] [address] Plastic Surgery [address] [place] [address] [facility] [id number] documented in this encounter [facility] 05-23-2024 History of Presen t illness Narrative Patient arrived via ambulatory. Accompanied by self. Pt here to see Plastic [facility] Team for new patient evaluation. Patient was knowledgeable of all their medications, and medication list was reconciled in IHIS.. Allergies reviewed with pt. Pictures taken using i'mma yocasta and uploaded in media tab in IHIS. Zack Jameson verbally agreed to have pictures taken for documentation of continuity of medical care. Chief Complaint: Chief Complaint Patient presents with New Patient Follow-up See about a year ago SENECA: Ms. Jameson is a 33 y.o. female who presents for evaluation of body contouring after massive weight loss. The patient underwent gastric bypass and has lost approximately 200 pounds. she has been at a stable weight for 12-24 months. The patient now has complaints of excess skin in the following areas: panni, breast, arms, thighs. Pertaining to the excess skin: The patient does not have an associated ventral hernia. The patient does have difficulty getting in and out of bed The patient does have difficulty standing and walking straight The patient does have difficulty tying her shoes The patient does have difficulty crossing her legs The patient does have difficulty finding clothes that fit appropriately The patient does have recurrent skin rashes/skin infections. Rash has been treated with the following: doesOTC powders/creams. Anti-fungal Rash has been treated with the following: does not know prescription medication/cream. The patient does have foul odors The patient does not have non-healing skin ulcers The patient does have back pain The patient does have ADL's that are being affected by the following: The patient does have excess skin that gets caught in clothing/zipper. The patient does have difficulty breathing while sleeping or with exercise. The patient does have emotional distress related to the excess skin. The patient has been suffering from the above symptoms since 2016. Would also like a breast lift as well. Images from the original note were not included. Chief Complaint: Chief Complaint Patient presents with New Patient Follow-up See about a year ago SENECA: Ms. Jameson is a 33 y.o. female who presents for evaluation of body contouring after massive weight loss. The patient underwent weight loss and has lost approximately 200 pounds and has recurrent erythema intertrigo L30.4. she has been still losing weight. The patient now has complaints of excess skin in the following areas: pannus. This patient was evaluated by us today in presence of a station chief. Pertaining to the excess skin: The patient does have an associated ventral hernia. The patient does have difficulty getting in and out of bed The patient does have difficulty standing and walking straight The patient does have difficulty tying her shoes The patient does have difficulty crossing her legs The patient does have difficulty finding clothes that fit appropriately The patient does have recurrent skin rashes The patient does have skin infections The patient does have foul odors The patient does not have non-healing skin ulcers The patient does have back pain Review of Systems: 12 point review of systems is negative with the exception of those things noted in the SENECA above. Past Medical History: No past medical history on file. Past Surgical History: Past Surgical History: Procedure Laterality Date TREATMENT INDUCED W/ DILATION & EVACUATION N/A 03/01/2017 Laterality: N/A; Surgeon: Kiya Escoto MD; Location: [facility] MAIN OR GASTRIC BYPASS 2014 CHOLECYSTECTOMY 2014 Medications: Outpatient Medications Prior to Visit Medication Sig Dispense Refill Ascorbic Acid (Vitamin C) 250 MG tablet cyanocobalamin 1000 MCG tablet Take 1 tablet by mouth. D2000 Ultra Strength 50 MCG (2000 UT) capsule Take 1 capsule by mouth daily. FeroSul 325 (65 Fe) MG tablet lamoTRIgine 25 MG tablet Take 1 tablet by mouth daily. Pantoprazole [address] tablet DR Take 1 tablet by mouth daily. 28 tablet 1 paroxetine CR 37.5 MG Tab SR 24 HR tablet Take 1 tablet by mouth daily. 28 tablet 1 Vit-Fe Fumarate-FA ( Vitamins) 28-0.8 MG tablet Take 1 tablet by mouth daily. QUEtiapine 25 MG tablet QUEtiapine 50 MG tablet traZODone 50 MG tablet Take 1 tablet by mouth at bedtime as needed for Sleep. May repeat x 1 prn 56 tablet 2 No facility-administered medications prior to visit. Allergies: is allergic to aspirin, bupropion, hydroxyzine, and *adhesive tape. Social History: Social History Socioeconomic History Marital status: Single Spouse name: Not on file Number of children: Not on file Years of education: Not on file Highest education level: Not on file Occupational History Not on file Tobacco Use Smoking status: Former Current packs/day: 0.25 Average packs/day: 0.3 packs/day for 15.0 years (3.8 ttl pk-yrs) Types: Cigarettes Smokeless tobacco: Not on file Substance and Sexual Activity Alcohol use: Yes Comment: 1 per month Drug use: No Sexual activity: Yes Partners: Male Other Topics Concern Not on file Social History Narrative Not on file Social Drivers of Health Financial Resource Strain: Not on file Food Insecurity: No Food Insecurity (08/22/2023) Received from [facility] Hunger Vital Sign Worried About Running Out of Food in the Last Year: Never true Ran Out of Food in the Last Year: Never true Transportation Needs: No Transportation Needs (08/22/2023) Received from [facility] PRAPARE - Transportation Lack of Transportation (Medical): No Lack of Transportation (Non-Medical): No Physical Activity: Not on file Stress: Not on file Social Connections: Not on file Personal Safety: Not on file Housing Stability: Not on file Physical Examination: Vitals: 05/23/24 1203 BP: 122/77 Pulse: 71 SpO2: 97% Weight: 101.6 kg (224 lb) Height: 1.524 m (5') Body mass index is 43.75 kg/m . General: fair Chest/Breast: deferred Abdomen: no erythema intertrigo in suprapubic fols Extremities: excess tissue both U and LE. 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 The patient understands that urine testing will be done to confirm abstinence from smoking and that surgery will be cancelled if the patient is positive for nicotine at any time. The patient also understands that they will have to refrain from smoking until all of the wounds are healed, at least 8 weeks following their surgery. They also understand that, even if smoking and nicotine is quit, the risk for complications is increased due to their smoking history. The excess skin of the abdomen interferes with daily activities and causes this patient problems that are outlined in the above note. I believe this patient could benefit from excision of the abdominal pannus. PLAN: needs to loose additional weight for surgical candidacy. documented in this encounter [facility] 05-23-2024 Instructions Yuliet Corea RN - 05/23/2024 11:20 AM EST Try to lose about 30 more pounds to be re-evaluated. On behalf of the [facility] staff, it was a pleasure to see you today in clinic. Our clinic serves different doctors and specialties each day. We encourage you to address any further questions you may have with your provider at the phone number listed with his/her name below. For many of our clinics this phone number will be answered by the provider's primary office. Please note that the address provided is the address here at [facility]. We look forward to seeing you again in the future. [facility] Plastic Surgery [address] [place] [phone] documented in this encounter [facility] 05-12-2024 Note . MICRO - Microbiology PROCEDURE: Affirm Pathogens DNA Direct Probe [*1] SOURCE: Vaginal Fluid BODY SITE: Vagina COLLECTED DATE/TIME: 05/10/2024 12:53 EST RECEIVED DATE/TIME: 05/11/2024 15:11 EST START DATE/TIME: 05/11/2024 15:15 EST FREE TEXT SOURCE: FINAL REPORTS Final Report [] Verified Date/Time/Personnel: 05/12/2024 13:20 EST Gardnerella vaginalis DNA Probe Positive Trichomonas vaginalis DNA Probe Negative Rand species DNA Probe Negative Performing Locations *1: This test was performed at: [facility], [address] [place] [address], [phone] , [facility] 07-25-2023 History of Presen t illness Narrative Patient arrived via Ambulatory. Accompanied by self. Pt here to see plastic surgery for new patient evaluation for abdominal body contouring surgery. Medications and allergies reviewed. Pictures taken using i'mma yocasta and uploaded in media tab in [employer]. Zack Jameson verbally agreed to have pictures taken for documentation of continuity of medical care. ELY for [facility] (bariatric treatment center) to obtain records from 2015 gastric bypass surgery. Chief Complaint: Chief Complaint Patient presents with New Patient Body contouring of abdomen SENECA: Ms. Jameson is a 32 y.o. female who presents for evaluation of body contouring after massive weight loss. The patient underwent Gastric Bypass Surgery in 2014 and has lost approximately 200 pounds. she has been at a stable weight for 24 months. The patient now has complaints of excess skin in the following areas: Abdomen and bilateral flanks and lower back. Pertaining to the excess skin: The patient does not have an associated ventral hernia. The patient does have difficulty getting in and out of bed The patient does have difficulty standing and walking straight The patient does have difficulty tying her shoes The patient does have difficulty crossing her legs The patient does have difficulty finding clothes that fit appropriately The patient does have recurrent skin rashes/skin infections. Rash has been treated with the following: doesOTC powders/creams. Rash has been treated with the following: does prescription medication/cream. The patient does have foul odors The patient does not have non-healing skin ulcers The patient does have back pain The patient does have ADL's that are being affected by the following: The patient does have excess skin that gets caught in clothing/zipper. The patient does have difficulty breathing while sleeping or with exercise. The patient does have emotional distress related to the excess skin. The patient has been suffering from the above symptoms for 24 months. Call to [facility] to obtain records of Bariatric Surgery from 2014. Transferred to clinical line. Detailed Voice Message Left requesting bariatric surgery records, per patient request, with return fax and phone number. Images from the original note were not included. PLASTIC SURGERY HISTORY & PHYSICAL NEW PATIENT/PRE-OP NOTE ASSESSMENT PLAN Zack Jameson is a 32 y.o. female with chronic excess skin and soft tissue to abdomen following massive weight loss. Underwent gastric bypass in 2015, highest weight 400lbs. I believe they would benefit from: Kenya de lis abdominoplasty, monsplasty Planned procedure(s) reviewed with patient: kenya de lis abdominoplasty and monsplasty for removal of excess skin and soft tissue. Discussed incisions/scars, procedure duration, discussed hospitalization (typically same day surgery), recommended compression garment (abdominal binder), dressing changes, drains if applicable, recovery time, postoperative restrictions, and follow-up. Risks that were discussed include surgical [bleeding, infection (most commonly cellulitis), hematoma, seroma, wound breakdown (most commonly at 3 point junctions), need for further surgery, pain, numbness, weakness, asymmetry, cosmetic deformity (most commonly redundant skin dog ears), injury to structures, flap/graft loss, and medical [heart attack, pneumonia, DVT/PE, ]. PLAN: - Refer to Dr. Rangel for full body contouring evaluation - Patient continuing to lose weight, aware of BMI goal of 35 for surgical candidacy. I spent 30-45 minutes in [id number] time with this patient, over half of this time was spent in discussing surgical options, patient education, and coordination of care. DANG Montez HISTORY OF PRESENT ILLNESS Zack Jameson is a 32 y.o. female who presents for evaluation of excess skin and soft tissue. This patient was evaluated today in presence of a station chief. The patient underwent Gastric Bypass Surgery in 2014 and has lost approximately 200 pounds. she has been at a stable weight for 24 months. The patient now has complaints of excess skin in the following areas: Abdomen and bilateral flanks and lower back. Pertaining to the excess skin: The patient does not have an associated ventral hernia. The patient does have difficulty getting in and out of bed The patient does have difficulty standing and walking straight The patient does have difficulty tying her shoes The patient does have difficulty crossing her legs The patient does have difficulty finding clothes that fit appropriately The patient does have recurrent skin rashes/skin infections. Rash has been treated with the following: doesOTC powders/creams. Rash has been treated with the following: does prescription medication/cream. The patient does have foul odors The patient does not have non-healing skin ulcers The patient does have back pain The patient does have ADL's that are being affected by the following: The patient does have excess skin that gets caught in clothing/zipper. The patient does have difficulty breathing while sleeping or with exercise. The patient does have emotional distress related to the excess skin. The patient has been suffering from the above symptoms for 24 months. She does not currently smoke. Patient states she quit when referral was placed for surgery. ROS/ALLERGIES/MEDICATIONS As per HPI. No fever, chills, abdominal pain, chest pain, or shortness of breath. No known problems with anesthesia, surgery, bleeding, or wound healing. Allergies Allergen Reactions Aspirin Other Reaction(s): Other (See Comments) Has had gastric bypass Bupropion Itching Hydroxyzine Gives her the Shakes *Adhesive Tape Itching and Rash Itching PAST MEDICAL/SOCIAL/FAMILY HISTORY No past medical history on file. Past Surgical History: Procedure Laterality Date TREATMENT INDUCED W/ DILATION & EVACUATION N/A 03/01/2017 Laterality: N/A; Surgeon: Kiya Escoto MD; Location: [facility] MA[facility] OR GASTRIC BYPASS 2014 CHOLECYSTECTOMY 2014 Family History Problem Relation Age of Onset Depression Father Diabetes Maternal Grandmother Diabetes Paternal Grandmother Breast Cancer Neg Hx Uterine Cancer Neg Hx Ovarian Cancer Neg Hx Colon Cancer Neg Hx Social History Tobacco Use Smoking status: Every Day Current packs/day: 0.25 Average packs/day: 0.3 packs/day for 15.0 years (3.8 ttl pk-yrs) Types: Cigarettes Substance Use Topics Alcohol use: Yes Comment: 1 per month Drug use: No PHYSICAL EXAM Blood pressure 127/57, pulse 85, resp. rate 14, height 1.524 m (5'), weight 99.5 kg (219 lb 6.4 oz), SpO2 97%. Body mass index is 42.85 kg/m . Body surface area is 1.94 meters squared. General: alert and oriented; no acute distress Pulmonary: non-labored breathing Abdomen: soft, non-tender, excess skin and soft tissue which hangs below the level of the pubic bone. Extremities: warm and well perfused, excess skin and soft tissue to bilateral arms and legs Neuro: no gross abnormalities Back: spine midline documented in this encounter [facility] 07-25-2023 Instructions Katharine Romano RN - 07/25/2023 8:00 AM EDT Follow Up: Referral has been placed for an [facility] Plastic Surgeon, Dr. Rangel, who specializes in full body contouring. You will be contacted to schedule. If you do not hear from their office in 2 weeks, call [facility] Plastic Surgery to schedule. See phone number below. [facility] Plastic Surgery [address] [place] [phone] On behalf of the [facility] staff, it was a pleasure to see you today in clinic. Our clinic serves different doctors and specialties each day. We encourage you to address any further questions you may have with your provider at the phone number listed with his/her name below. For many of our clinics this phone number will be answered by the provider's primary office. Please note that the address provided is the address here at [facility]. We look forward to seeing you again in the future. documented in this encounter [facility] 05-18-2023 History of Presen t illness Narrative History of Present Illness: Current concerns: wanting a referral to have skin removed. And no other concerns. Sober 6 months Current medications: Current Outpatient Medications: lamoTRIgine 25 MG tablet, Take 1 tablet by mouth at bedtime., Disp: 28 tablet, Rfl: 0 Pantopraz[address] yuridia PANG, Take 1 tablet by mouth daily., Disp: 28 tablet, Rfl: 2 PARoxetine CR 25 MG Tab SR 24 HR, Take 1 tablet by mouth daily., Disp: 28 tablet, Rfl: 2 traZODone 50 MG tablet, Take 1 tablet by mouth at bedtime as needed for Sleep. May repeat x 1 prn, Disp: 56 tablet, Rfl: 2 Problems with medication: No Any cravings ,any time of day or night: No Any withdraw all symptoms, any time of day or night: No Any night sweats: No Any Using Dreams No Any use of opioid that isn't prescribed for you and is unknown to me: No Counselor- yes - Jorge-Kelsie Hodge Labs: Reviewed Yes POCT ALERE DRUG SCREEN Order: [id number] Status: In process Visible to patient: No (not released) Next appt: None Dx: Stimulant use disorder 0 Result Notes Component 05/18/23 1335 Marijuana (THC), poct Negative COCAINE (SHERYL), POCT Negative Opiate (OPI), poct Negative Methamphetamine (mAMP/MET), poct Negative Amphetamine (AMP), poct Negative Barbiturates (BAR), poct Negative Methadone (MTD), poct Negative Ecstasy (MDMA), poct Negative Oxycodone, POC Negative Phencyclidine (PCP), poct Negative Propoxyphene (PPX), poct Negative OXAZEPAM (BZO),POCT negative Buprenorphine Glucuronide (BUPG),poct negative Nortripyline (TCA), poct negative Negative -fentanly Cora Wolfe History of Present Illness: Current concerns: wants off Lamictal may get soon, will have subcutaneous implant removed Dad age 61 at home alone in [place], 3 sibs, celebration of life done Current medications: Current Outpatient Medications: lamoTRIgine 25 MG tablet, Take 1 tablet by mouth at bedtime., Disp: 28 tablet, Rfl: 0 Pantoprazole [address] yuridia PANG, Take 1 tablet by mouth daily., Disp: 28 tablet, Rfl: 2 PARoxetine CR 25 MG Tab SR 24 HR, Take 1 tablet by mouth daily., Disp: 28 tablet, Rfl: 2 traZODone 50 MG tablet, Take 1 tablet by mouth at bedtime as needed for Sleep. May repeat x 1 prn, Disp: 56 tablet, Rfl: 2 Problems with medication: No Any cravings ,any time of day or night: No Any withdraw all symptoms, any time of day or night: No Any night sweats: No Any Using Dreams No Any use of opioid that isn't prescribed for you and is unknown to me: No [facility]- [facility] - [facility] Any use of opioid or any other drug that isn't prescribed for you and is unknown to me: No AOD: stimulant use disorder IUDS: Labs: Reviewed Yes POCT ALERE DRUG SCREEN Order: [id number] Status: In process Visible to patient: No (not released) Next appt: None Dx: Stimulant use disorder 0 Result Notes Component 05/18/23 1335 Marijuana (THC), poct Negative COCAINE (SHERYL), POCT Negative Opiate (OPI), poct Negative Methamphetamine (mAMP/MET), poct Negative Amphetamine (AMP), poct Negative Barbiturates (BAR), poct Negative Methadone (MTD), poct Negative Ecstasy (MDMA), poct Negative Oxycodone, POC Negative Phencyclidine (PCP), poct Negative Propoxyphene (PPX), poct Negative OXAZEPAM (BZO),POCT negative Buprenorphine Glucuronide (BUPG),poct negative Nortripyline (TCA), poct negative Social- at [facility] till this Month, will stay another house and will look for a job [employer]- no data Labs: Reviewed No BREATHALYZER RESULTS: Patient was able to perform Breathalyzer with the following result: 0 % YOUR READING YOUR RANGE DESCRIPTION 0.00% to 0.01% Safe*range Little/no alcohol intake 0.02% to 0.04% Moderate* range Increased alcohol intake 0.05% and over Warning* range Ability to drive may be impaired Results submitted by Lan Jacobs DO , 05/18/2023 BP 116/83 (BP Location: Left arm, BP Position: Sitting) Pulse 66 Temp 97.7 F (36.5 C) Ht 1.549 m (5' 1) Wt 99.4 kg (219 lb 3.2 oz) SpO2 99% BMI 41.42 kg/m Smoking Status Every Day Physical Exam Constitutional: Appearance: Normal appearance. Eyes: Extraocular Movements: Extraocular movements intact. Pupils: Pupils are equal, round, and reactive to light. Pulmonary: Effort: Pulmonary effort is normal. Abdominal: Comments: Large panniculus Musculoskeletal: General: Normal range of motion. Neurological: General: No focal deficit present. Mental Status: She is alert and oriented to person, place, and time. Psychiatric: Mood and Affect: Mood normal. Behavior: Behavior normal. 20 minutes was spent face to face with patient. Greater than 50% was spent counseling on care management as documented. Patient questions were answered to her satisfaction. Assessment and Plan 1. Stimulant use disorder No FU scheduled. Pt will be graduating [employer] in June - DRUG SCREEN MED COMPLIANCE I; Future - POCT ALERE DRUG SCREEN - POCT URINE 2. Depression, unspecified depression type - paroxetine CR 37.5 MG Tab SR 24 HR tablet; Take 1 tablet by mouth daily. Dispense: 28 tablet; Refill: 1 - AMB REFERRAL TO PLASTIC SURGERY 3. Gastroesophageal reflux disease, unspecified whether esophagitis present - Pantoprazole [address] tablet DR; Take 1 tablet by mouth daily. Dispense: 28 tablet; Refill: 1 Lan Jacobs DO documented in this encounter [facility] 01-16-2023 Discharge summary Note Date/Time January 16, 2023 9: 32am [facility] [address] [place] [address] Discharge Summary Signed Patient: Zack Jameson MR#: [id number] : 1990 Acct:[id number] Age/Sex: 32 / F Adm Date: 3 Loc: Room: [address] [place] [address]: Mirza Duff MD Copies to: MD Harrison Haines MD NO FAMILY PHYSICIAN~ Providers Date of Discharge: 01/16/23 Discharging Provider: Harrison Fuller Primary Care Provider: PHYSICIAN NO FAMILY Consults: 01/13/23 19:42 Consult to Case Management Routine Discharge Diagnosis (1) Depression: (2) Substance abuse: Final Diagnosis Final Discharge Diagnosis: Major depressive disorder Summary Hospital Course Hospital course: According to admission note: Zack Jameson is a 32 year old female with a reported history of substance abuse and MDD who presents for inpatient admissiondue to worsening of depression and feeling suicidal with a plan to OD. Per records, patient has been at [facility] in [place] ith her fiance and has been off of Meth or about 2 months now. She was brought in from the recovery center. She would like to restart paxil and seroquel. She has been off of these medications for about 6 months now, and said she was feeling okay but is now feeling depressed again. Per report, patient is on probation for drugcharges and is facing detention time.Oriented to the unit, policy's and procedures,patient right's.Will continue to monitor. Patient was personally seen by me on the day of the encounter. I reviewed the history and performed the cho elements of the assessment. I formulated the planof care and confirmed this with the resident as noted below At the time of the interview she presented as depressed and was tearful. She expressed that she is only here because she wants to restart her medications. Denies and SI, HI, or AVH. For at least two weeks, the patient complains of depressed mood most of the day every day, decreased interest in activities normally enjoyed, low energy and fatigue throughout the day even when sleeping adequately, feelings of worthlessness, guilt for no reason, and poor focus and concentration in routine activities. She has been self medicating with meth. Sheis on probation for drug charges. She reports taking Paxil which has been effective and was taking Seroquel before. She said she always had thoughts of ODon Seroquel and therefore it is better to avoid such medication. She admits to poor impulse control and we discussed adding low dose of Lamictal. Side effectsof lamotrigine were discussed with the patient including the fatal rash of Messi Jonathan Syndrome. The patient was advised to stop lamotrigine and visit the ER for any rash that occurs while taking lamotrigine. The patient was also advised about the importance of being compliant with the mediation. The patient verbalized understanding. Past psych history: MDD, substance abuse Past hospitalizations: Denies Past suicide attempts: 2018 overdose on Seroquel Family psych history: Dad has schizophrenia, attempted suicide in the past. Previous medications: Paxil and Seroquel Alcohol and drug use: History of meth use. 2 months at the recovery center. Living: Currently lives at the [facility] in [place]. Employment: Unemployed. Relationships: Strong relationship with fianc? and family. Patient was treated with Paxil and Lamictal during hospitalization. She tolerated the medication without any problems. She felt that her depression andsuicidal thoughts improved as Lamictal was added. She did not exhibit any further behavior concerning for suicidality. She did not have any conflict withpeers or staff. She seemed to be in a pleasant mood throughout her hospitalization. On the day of discharge, she reported she is feeling better. She denied any depression or suicidality. She was comfortable discharge plan home and following up with outpatient services. Condition Condition at Discharge: Stable Status at Discharge Cognitive/behavioral status at discharge: Mental Status Exam: Appearance: grossly normal Mental Status: mental status grossly normal Mood: Euthymic mood Affect: Normal affect Speech and Movement: speech and movement normal and speech clear Attitude: cooperative Thought Process: normal Thought Content: Denied hallucinations, no homicidality and no suicidality Insight: Good Judgment: Good Functional status at discharge: independent ambulation Overall status at discharge: patient is back to baseline Time Spent with Patient Time spent providing/coordinating discharge services (# min): 30 Exam Physical Exam Vital Signs: Temp Pulse Resp BP Pulse Ox O2 Del Method 98.2 F 67 16 140/83 99 Room Air 01/16/23 07:30 01/16/23 07:30 01/16/23 07:30 01/16/23 07:30 01/16/23 07:30 01/16/23 07:30 Discharge Plan Discharge Plan Patient Disposition: Chemical Dependency Activity: No Activity Restriction Diet: Regular Additional Instructions: Important Contact Information You can call [facility] at [phone] any time day or night if you have emergent questions or question regarding discharge instructions. If at any time you are feeling an increase inyour psychiatric symptoms, call your physician or behavioral healthcare provider. If any time you have thoughts of harming yourself or others contact one of the following: Call (available 07/11) Crisis Text Line (available 07/11) text 4HOPE to [phone] [facility] Hope Line (available 8 a.m. Midnight) call [phone] ([phone]) Regular Diet No Activity Restrictions Instructions: Depression, Adult (DC), [facility] Behavioral Health DC Instructions Prescriptions: New trazodone 50 mg Tablet 50 mg PO QHS PRN (Reason: Insomnia) 30 Days Qty: 30 0RF lamotrigine 25 mg Tablet 25 mg PO HS 30 Days Qty: 30 0RF paroxetine HCl 20 mg Tablet 20 mg PO QAM 30 Days Qty: 30 0RF pantoprazole 40 mg Tablet,Delayed Release (Dr/Ec) 40 mg PO DAILY 30 Days Qty: 30 0RF Follow Up: [facility] [Outside] [facility] [Physician] - ( to manage all care ) Documented By: Harrison Fuller MD 01/16/23 0932 Signed By: <Electronically signed by Harrison Fuller MD> 01/16/23 0297 [facility] Work Phone: 1(472) 383-224610-01-2023 Progress note Author Mirza martinez [facility] January 15, 2023 6:25am Note Date/Time January 15, 2023 6: 26am [facility] [address] [place] [address] Psychiatry Progress Note Signed Patient: Zack Jameson MR#: [id number] : 1990 Acct:[id number] Age/Sex: 32 / F Adm Date: 3 Loc: Room: [address] [place] [address] Type : ADM IN Attending Dr: Mirza Duff MD Copies to: ~ Date of Service: 01/15/2023 Subjective Subjective Narrative: Zack Jameson said she is working on regulating her emotions. She is worried about her probation indicating that her executive vice president and chief financial officer is strict. She is worried about violating her probation and ending up in assisted. She has a class tomorrow and does not want to miss it. She attends IOP at [facility] and wants to go back there when discharged. She denied any SI/HI. She is currently unemployed and stated that her father is helping her. Mental Status: mental status grossly normal Mood: ok mood Affect: constricted affect Speech and Movement: speech and movement normal and speech clear Attitude: cooperative Thought Process: normal Thought Content: Denied hallucinations, no homicidality and no suicidality Insight: Fair Judgment: Fair Exam Physical Exam Vital Signs: Temp Pulse Resp BP Pulse Ox O2 Del Method 97.6 F 65 16 110/61 97 Room Air 01/14/23 22:37 01/14/23 22:37 01/14/23 22:37 01/14/23 22:37 01/14/23 22:37 01/14/23 22:37 Assessment/Plan Assessment/Plan (1) Depression: Plan: -Patient reports feeling better and denied SI/HI. -Anticipate discharge tomorrow to [facility] -Continue Paxil 20mg PO QAM and Lamictal 25mg PO HS for mood stabilization and impulse control. -Continue to monitor mental status -Monitor suicidal behaviors for safety of self (15-minute face check). -Encourage medication adherence. Risks, benefits, indications, and alternatives of treatment explained -Recommend attending groups and psychoeducation for building coping skills. -No abnormal movements noted on exam. AIMS is Zero. -Involve friends/family members to coordinate care and ensure appropriate outpatient appointments are scheduled prior to discharge. Code(s): F32.A - Depression, unspecified Status: Acute (2) Substance abuse: Code(s): F19.10 - Other psychoactive substance abuse, uncomplicated Status: Acute Documented By: Mirza Duff MD 3 0622 Signed By: <Electronically signed by Mirza Duff MD> 01/15/23 0625 [facility] Work Phone: 1(279) 780-785809-30-2023 History and physical note Author Mirza martinez [facility] January 14, 2023 9:16am Note Date/Time January 14, 2023 9:16am [facility] [address] [place] [address] Psychiatry H&P Signed Patient: Zack Jameson MR#: [id number] : 1990 Acct:[id number] Age/Sex: 32 / F Adm Date: 3 Loc: 1S Room: [address] [place] [address] Type: ADM IN Attending Dr: Mirza Duff MD Copies to: Mirza Duff MD NO FAMILY PHYSICIAN~ Date of Service: 01/14/2023 HPI History of Present Illness History of present illness: Zack Jameson is a 32 year old female with a reported history of substance abuse and MDD who presents for inpatient admission due to worsening of depression and feeling suicidal with aplan to OD. Per records, patient has been at [facility] in [facility] her ance and has been off of Meth or about 2 months now. She was brought in from the recovery center. She would like to restart paxil and seroquel. She has been off of these medications for about 6 months now, and said she was feeling okay but is now feeling depressed again. Per report, patient is on probation for drug charges and is facing detention time.Oriented to the unit, policy's and procedures,patient right's.Will continueto monitor. Patient was personally seen by me on the day of the encounter. I reviewed the history and performed the cho elements of the assessment. I formulated the planof care and confirmed this with the resident as noted below At the time of the interview she presented as depressed and was tearful. She expressed that she is only here because she wants to restart her medications. Denies and SI, HI, or AVH. For at least two weeks, the patient complains of depressed mood most of the day every day, decreased interest in activities normally enjoyed, low energy and fatigue throughout the day even when sleeping adequately, feelings of worthlessness, guilt for no reason, and poor focus and concentration in routine activities. She has been self medicating with meth. Sheis on probation for drug charges. She reports taking Paxil which has been effective and was taking Seroquel before. She said she always had thoughts of ODon Seroquel and therefore it is better to avoid such medication. She admits to poor impulse control and we discussed adding low dose of Lamictal. Side effectsof lamotrigine were discussed with the patient including the fatal rash of Messi Jonathan Syndrome. The patient was advised to stop lamotrigine and visit the ER for any rash that occurs while taking lamotrigine. The patient was also advised about the importance of being compliant with the mediation. The patient verbalized understanding. Past psych history: MDD, substance abuse Past hospitalizations: Denies Past suicide attempts: 2018 overdose on Seroquel Family psych history: Dad has schizophrenia, attempted suicide in the past. Previous medications: Paxil and Seroquel Alcohol and drug use: History of meth use. 2 months at the [facility]. Living: Currently lives at the [facility] in [place]. Employment: Unemployed. Relationships: Strong relationship with fianc? and family. Mental Status: mental status grossly normal Mood: depressed mood Affect: constricted affect Speech and Movement: speech and movement normal and speech clear Attitude: cooperative Thought Process: normal Thought Content: Denied hallucinations, no homicidality and positive suicidality Insight: limited Judgment: limited Review of Systems Constitutional: Pt denies fatigue, malaise. Neuro: Denies dizziness/lightheadedness. Denies TBI, seizure, memory loss. Denies numbness/tingling in extremities HEENT: Denies vision/hearing changes. Pulmonary: Denies SOB, dyspnea, cough, wheezing. Cardiac: Denies chest pain/pressure. Denies edema, palpitations. GI: Denies abdominal pain, heartburn, N/V. Denies constipation and diarrhea : Denies dysuria, hematuria, polyuria. Physical exam General: alert, awake, and oriented x3 Skin: intact HEENT: head atraumatic, face symmetrical. Pulm: Breathing normally without excessive effort Cardio: Regular rate and rhythm Abdomen: Normal inspection Musculoskeletal: Moves all extremities, normal strength all extremities. Neuro: Pt alert, oriented x3. Gait normal. CNI: normal olfaction CNII: Visual carlton intact CNIII,IV,: EOM intact, no nystagmus. CNV: Sensation intact to light touch. CNVII: Raises eyebrows, smile/frown, puff out cheeks symmetrically. CNVIII: Hearing intact bilaterally. CNIX,X: Voice normal, soft palate elevation normal, symmetrical. CNXI: Shoulder shrug strong, equal bilaterally. CNXII: Tongue protrusion midline [facility] Medical History (Updated 01/14/23 @ 08:48 by Brett Garcia MD, RES) Chronic anemia Depression Obesity Stomach ulcer Surgical History (Updated 01/13/23 @ 19:21 by Sharonda Flood RN) Gastric bypass status for obesity Hx of cholecystectomy Hx of tonsillectomy Family History (Updated 01/13/23 @ 19:23 by Sharonda Flood RN) Mother Bipolar disorder Depression Obesity Father Depression Schizophrenia Obesity Sister Obesity Sister Obesity Social History Smoking Status: Current every day smoker Tobacco Type: e-cigarettes Substance Use Type: Methamphetamine Social History Comments: Was living in a trailer with pieter.Currently boyfriendand her are at [facility] in [place], [place] for substance abuse. Meds Medications and Allergies Allergies hydroxyzine [From Vistaril] Adverse Reaction (Verified 01/13/23 18:52) Anxiety Home Medications No known home meds 01/13/23 [History Confirmed 01/13/23] Exam Physical Exam Vital Signs: Temp Pulse Resp BP Pulse Ox O2 Del Method 98.1 F 76 16 117/63 98 Room Air 01/13/23 19:30 01/13/23 19:30 01/13/23 19:30 01/13/23 19:30 01/13/23 19:30 01/13/23 19:30 Assessment/Plan (1) Depression: Plan: Patient presenting with a hx of MDD. She has been off her medications for about 6 months now and would like to restart psychiatric therapy. Pt is in rehab at [facility] for substance abuse. Denies SI, HI, or AVH. -Will restart Paxil 20mg PO QAM and add Lamictal 25mg PO HS for mood stabilization and impulse control. -Continue to monitor mental status -Monitor suicidal behaviors for safety of self (15-minute face check). -Encourage medication adherence. Risks, benefits, indications, and alternatives of treatment explained -Recommend attending groups and psychoeducation for building coping skills. -No abnormal movements noted on exam. AIMS is Zero. -Involve friends/family members to coordinate care and ensure appropriate outpatient appointments are scheduled prior to discharge. Code(s): F32.A - Depression, unspecified Status: Acute (2) Substance abuse: Code(s): F19.10 - Other psychoactive substance abuse, uncomplicated Status: Acute Documented By: Mirza Duff MD 3 [id number] Signed By: <Electronically signed by Mirza Duff MD> 01/14/23 0916 [facility] Work Phone: [phone] Hospital Discharge instructions Patient Education 10/31/2022 17:18:07 Gastrointestinal Bleeding, Qrky-nq-Xhyt Gastrointestinal Bleeding Gastrointestinal (GI) bleeding is bleeding somewhere along the path that food travels through the body (digestive tract). This path is anywhere between the mouth and the opening of the butt (anus). You may have blood in your poop (stool) or have black poop. If you throw up (vomit), there may be blood in it. This condition can be mild, serious, or even life-threatening. If you have a lot of bleeding, you may need to stay in the hospital. What are the causes? This condition may be caused by: Irritation and swelling of the esophagus (esophagitis). The esophagus is part of the body that moves food from your mouth to your stomach. Swollen veins in the butt (hemorrhoids). Areas of painful tearing in the opening of the butt (anal fissures). These are often caused by passing hard poop. Pouches that form on the colon over time (diverticulosis). Irritation and swelling (diverticulitis) in areas where pouches have formed on the colon. Growths (polyps) or cancer. Colon cancer often starts out as growths that are not cancer. Irritation of the stomach lining (gastritis). Sores (ulcers) in the stomach. What increases the risk? You are more likely to develop this condition if you: Have a certain type of infection in your stomach (Helicobacter pylori infection). Take certain medicines. Smoke. Drink alcohol. What are the signs or symptoms? Common symptoms of this condition include: Throwing up (vomiting) material that has bright red blood in it. It may look like coffee grounds. Changes in your poop. The poop may: ?Have red blood in it. ?Be black, look like tar, and smell stronger than normal. ?Be red. Pain or cramping in the belly (abdomen). How is this treated? Treatment for this condition depends on the cause of the bleeding. For example: Sometimes, the bleeding can be stopped during a procedure that is done to find the problem (endoscopy or colonoscopy). Medicines can be used to: ?Help control irritation, swelling, or infection. ?Reduce acid in your stomach. Certain problems can be treated with: ?Creams. ?Medicines that are put in the butt (suppositories). ?Warm baths. Surgery is sometimes needed. If you lose a lot of blood, you may need a blood transfusion. If bleeding is mild, you may be allowed to go home. If there is a lot of bleeding, you will need tostay in the hospital. Follow these instructions at home: Take cqfr-qhu-mjrgtgl and prescription medicines only as told by your doctor. Eat foods that have a lot of fiber in them. These foods include beans, whole grains, and fresh fruits and vegetables. You can also try eating 1 3 prunes each day. Drink enough fluid to keep your pee (urine) pale yellow. Keep all follow-up visits as told by your doctor. This is important. Contact a doctor if: Your symptoms do not get better. Get help right away if: Your bleeding does not stop. You feel dizzy or you pass out (faint). You feel weak. You have very bad cramps in your back or belly. You pass large clumps of blood (clots) in your poop. Your symptoms are getting worse. You have chest pain or fast heartbeats. Summary GI bleeding is bleeding somewhere along the path that food travels through the body (digestive tract). This bleeding can be caused by many things. Treatment depends on the cause of the bleeding. Take medicines only as told by your doctor. Keep all follow-up visits as told by your doctor. This is important. This information is not intended to replace advice given to you by your health care provider. Make sure you discuss any questions you have with your health care provider. Document Released: 01/10/2009 Document Revised: 11/14/2018 Document Reviewed: 11/14/2018 [employer] Patient Education 2020 [employer]. Follow Up Care 10/31/2022 04:14:44 With:AGNES SRIVASTAVA MD Address: [address] [place] [address] [facility] [place] [address] [phone] When:5 to 7 days With:Call MARY Orta PtMame Refferral [phone] Address:Unknown When:1-2 days [facility] 07-17-2023 Note Discharge Instructions Thank you for allowing [facility] to assist you with your healthcare needs. The following is importantdischarge information regarding your hospital visit. What to do next Follow Up Appointments Follow Up with AGNES SRIVASTAVA MD When Within 5 to 7 days Where: [address] [place] [address] [place] [place] [address] [phone] Follow Up with Call MARY Orta PtMame Refferral [phone] When Within 1-2 days The Following Activity and Diet Have Been Ordered for You Discharge Activity - Ordered -- Resume your pre-hospitalization activity, 10/31/22 16:53:00 EDT Discharge Diet - Ordered -- Type of Diet: Regular, 10/31/22 16:53:00 EDT The Following Equipment Has Been Ordered for You No qualifying data available. The Following Treatments Have Been Ordered for You Discharge Labs No qualifying data available. Discharge Radiology No qualifying data available. Other Therapies No qualifying data available. Post Acute Orders No qualifying data available. Someone Will Contact You Regarding These Home Health Referrals No home referrals have been ordered for you. No one will call you. Allergies Non-steroidal anti-inflammatory agent Tylenol (Non-steroidal anti-inflammatory drug) Medications Please ask your primary doctor or pharmacist before taking any other medication not listed, including over the counter drugs, herbal medications, vitamins and or supplements as they may interact withyour home medications. What How Much When Instructions Last Dose New pantoprazole (Protonix 40 mg oral enteric coated tablet) 1 tab(s) by mouth Two (2) times a day Duration: 30 Days Pickup at [facility] Changed ferrous sulfate (ferrous sulfate 324 mg (65 mg elemental iron) oral delayed release tablet) 1 tab(s) by mouth Monday / Monday / Monday Duration: 30 Days Pickup at [facility] Unchanged ascorbic acid (Vitamin C 500 mg oral tablet) 2 tab(s) by mouth Once a day Pharmacy Information [facility]: [address], [place] [phone] What How Much When Comments Stop Taking multivitamin (Multiple Vitamins oral tablet) 1 tab(s) by mouth Every day Stop Taking PARoxetine (Paxil 20 mg oral tablet) 1 tab(s) by mouth Daily at bedtime Stop Taking QUEtiapine (SEROquel 50 mg oral tablet) 1 tab(s) by mouth Daily at bedtime Please take this list to your next doctor s visit. Bring all medications you take, including over the counter medications, herbals and other supplements with you to your doctor s visit. Patients and families are reminded to discard old lists and to update any records with all medication providers or retail pharmacies. Education Materials Gastrointestinal Bleeding Gastrointestinal (GI) bleeding is bleeding somewhere along the path that food travels through the body (digestive tract). This path is anywhere between the mouth and the opening of the butt (anus). You may have blood in your poop (stool) or have black poop. If you throw up (vomit), there may be blood in it. This condition can be mild, serious, or even life-threatening. If you have a lot of bleeding, you may need to stay in the hospital. What are the causes? This condition may be caused by: Irritation and swelling of the esophagus (esophagitis). The esophagus is part of the body that moves food from your mouth to your stomach. Swollen veins in the butt (hemorrhoids). Areas of painful tearing in the opening of the butt (anal fissures). These are often caused by passing hard poop. Pouches that form on the colon over time (diverticulosis). Irritation and swelling (diverticulitis) in areas where pouches have formed on the colon. Growths (polyps) or cancer. Colon cancer often starts out as growths that are not cancer. Irritation of the stomach lining (gastritis). Sores (ulcers) in the stomach. What increases the risk? You are more likely to develop this condition if you: Have a certain type of infection in your stomach (Helicobacter pylori infection). Take certain medicines. Smoke. Drink alcohol. What are the signs or symptoms? Common symptoms of this condition include: Throwing up (vomiting) material that has bright red blood in it. It may look like coffee grounds. Changes in your poop. The poop may: ? Have red blood in it. ? Be black, look like tar, and smell stronger than normal. ? Be red. Pain or cramping in the belly (abdomen). How is this treated? Treatment for this condition depends on the cause of the bleeding. For example: Sometimes, the bleeding can be stopped during a procedure that is done to find the problem (endoscopy or colonoscopy). Medicines can be used to: ? Help control irritation, swelling, or infection. ? Reduce acid in your stomach. Certain problems can be treated with: ? Creams. ? Medicines that are put in the butt (suppositories). ? Warm baths. Surgery is sometimes needed. If you lose a lot of blood, you may need a blood transfusion. If bleeding is mild, you may be allowed to go home. If there is a lot of bleeding, you will need tostay in the hospital. Follow these instructions at home: Take rxrc-quk-pncmlmd and prescription medicines only as told by your doctor. Eat foods that have a lot of fiber in them. These foods include beans, whole grains, and fresh fruits and vegetables. You can also try eating 1 3 prunes each day. Drink enough fluid to keep your pee (urine) pale yellow. Keep all follow-up visits as told by your doctor. This is important. Contact a doctor if: Your symptoms do not get better. Get help right away if: Your bleeding does not stop. You feel dizzy or you pass out (faint). You feel weak. You have very bad cramps in your back or belly. You pass large clumps of blood (clots) in your poop. Your symptoms are getting worse. You have chest pain or fast heartbeats. Summary GI bleeding is bleeding somewhere along the path that food travels through the body (digestive tract). This bleeding can be caused by many things. Treatment depends on the cause of the bleeding. Take medicines only as told by your doctor. Keep all follow-up visits as told by your doctor. This is important. This information is not intended to replace advice given to you by your health care provider. Make sure you discuss any questions you have with your health care provider. Document Released: 01/10/2009 Document Revised: 11/14/2018 Document Reviewed: 11/14/2018 [employer] Patient Education 2020 [employer] Additional Information VACCINATE! IT SAVES LIVES! Members of the community who have not yet received the COVID-19 vaccine and would like to receive it can visit one of [facility] vaccine clinics. There are many vaccine clinic locations within the [facility]. For locations and available times, please visit https://gettheshot.coronavirus.[place].gov/. It is important to note that some COVID mobile vaccine clinics are held outdoors and may be canceled in rainy or stormy conditions. To learn more about pediatric vaccinations (ages 5-11), we invite you to visit the [facility] webpage. https://www.[facility].org/pages/9608-Sunkw-Xzfpoamqgpq-Wnhppzuwia-Gtpnh-Ioa stions.htmlTo learn more about the COVID-19 vaccine, we invite you to visit the CDC website for a list of frequently asked questions.https://www.cdc.gov/coronavirus/2019-ncov/vaccines/faq.html [facility] Patient Portal Access Instructions: Stay connected with your healthcare team and access your personal medical information anytime with the [employer] Patient Portal. Please follow the directions below to create your [employer] account: 1.Access the email account you provided upon registration to the hospital/physician office.2.Look for an invitation email from [facility].3.Open the email and access the invitation link: AcceptInvitation to [facility].4.Fill in the required carlton to create your account. To access your account, visit [employer]. Click the blue button labeled Access Patient Portal and then log in with the username and password that you created in the steps above. You will be able to view your test results, lab results, a summary of your visits, upcoming appointments and more. There is also a convenient messaging option where you can send secure messages to your p [employer]. In addition, you will have the ability to download any documents or summaries to your computer and/or send the information securely to a physician. Remember that your healthcare information is confidential, so carefully consider who you will allowto register on the [facility] Patient Portal for access to your information. You can also access the [facility] [employer] Patient Portal on the [employer] Anywhere yocasta. Simply click on Patient Portal and then log into your account. If you would like to receive a full copy of your medical records, please contact the [facility] Medical Records Department by calling [phone], Monday through Monday between 8 a.m. and 4:30 p.m. HOW TO SAFELY DISPOSE OF PRESCRIPTION MEDICATIONS Please use one of the following methods to safely dispose of your unused medications. 1.Use a drug disposal kit: the drug disposal pouch allows you to safely discard your old and unuseddrugs. Ask your nurse to give you one when you are discharged.2.Visit a local take-back location: Many local pharmacies and police departments have programs that collect old and unwanted prescriptiondrugs. Call your local pharmacy or go to http://[employer].Studio/6H6Nx4v to find one close to you.3.Make use of household items: Use cat litter or old coffee grounds to dispose medications if other options arenot available. Mix your drugs with these household products, seal them in an airtight container andthrow it into the garbage. Call [facility]: [phone] to be sure your drugs can be disposed of in this way. Some medicines may require a different approach.4.Never flush your medications down the toilet. IF YOU HAVE BEEN PRESCRIBED AN OPIOID FOR PAIN If you have been prescribed an opioid (such as hydrocodone, oxycodone or morphine), it is critical to understand the possible side effects and risks of opioid pain medications. Even when taken as directed, opioids can have several side effects including: Tolerance, meaning you might need to take more of a medication for the same pain relief. Nausea, vomiting and/or constipation. Sleepiness, dizziness, dry mouth, confusion, depression or itching. Physical dependence, meaning you have withdrawal symptoms when a medication is stopped, can develop within a few days. KNOW YOUR RESPONSIBILITIES It is important to know exactly how much and how often to take the opioid pain medications you are prescribed. Never take opioids in higher amounts or more often than prescribed. Do not combine opioids with alcohol or other drugs that cause drowsiness, such as benzodiazepines, also known as benzos, including diazepam and alprazolam, muscle relaxants or sleep aids. Never sell or share prescription opioids. This is illegal. Store opioids in a secure place and out of reach of others (including children, family, friends and visitors). The last page of this document has been signed and retained as a CHART COPY. Signatures Patient Education Materials Gastrointestinal Bleeding, [place]ep[place]oy-Nfdy Medication Leaflets My discharge plan and instructions have been reviewed and explained to me and ITYSON JAMIE understand my current condition and have read and understand these discharge instructions. I have received a written copy of the plan/instructions. If I have questions, I am aware that I should contact my d octor. Patient/Youth Services Librarian Signature: Date/Time: Relationship to Patient: Witness Name/Signature: Date[facility]Time: [id number] Discharge summary Date of Service 10/31/2022 Discharge Diagnosis Gastrointestinal hemorrhage, unspecified (K92.2 - ICD-10-CM) Acute posthemorrhagic anemia (D62 - ICD-10-CM) Tachycardia, unspecified (R00.0 - ICD-10-CM) Bipolar disorder, unspecified (F31.9 - ICD-10-CM) Bariatric surgery status (Z98.84 - ICD-10-CM) Gastritis, unspecified, without bleeding (K29.70 - ICD-10-CM) Additional Orders: Other status: Basic Metabolic Panel,10/31/22 7:34:00 EDT, Routine, Blood, Once, Stop date 10/31/22 8:00:00 EDT(Complete) Ordered: Hemoglobin/Hematocrit - Panel,10/31/22 17:00:00 EDT, Timed Study (collect at specified time), Blood, Once, Stop date 10/31/22 17:00:00 EDT Modified: LR 1,000 mL,Start: 10/31/22 7:34:00 EDT, 18 hour(s), Stop date 11/01/22 1:33:00 EDT, Rate: 100 mL/hr, 10/31/22 7:34:00 EDT Ordered: Protonix 40 mg oral enteric coated tablet,Dose : 40 mg = 1 tab(s), Oral, BID, # 60 tab(s),0 Refill(s), Pharmacy: [id number], 152.4, cm, 10/31/22 4:22:00 EDT, Height Ordered: ferrous sulfate 324 mg (65 mg elemental iron) oral delayed release tablet,Dose : 324 mg = 1 tab(s), Oral, Mon/Wed/Fri, X 30 day(s), # 13 tab(s), 0 Refill(s), 11/30/22 16:48:00 EDT, Pharmacy:[id number], 152.4, cm, 10/31/22 4:22:00 EDT, Height Ordered: morphine,Start: 10/31/22 7:31:00 EDT, Dose = 2 mg, = 1 mL, IV Push, q4h, PRN, Pain, scale 4-6, 10/31/22 7:31:00 EDT Ordered: morphine,Start: 10/31/22 7:32:00 EDT, Dose = 4 mg, = 1 mL, IV Push, q4h, PRN, Pain, scale 7-10, 10/31/22 7:32:00 EDT Hospital Course 32-year-old female with history of depression and bipolar disease history of intentional overdose in 2018, gastric bypass who presents as transfer from [facility] for GI bleed. Per admitting provider patient has been having melanotic stools. Last year EGD showing ulcer which was cauterized per previous documentation. Hemoglobin was 6.9 patient was ordered for 1 unit PRBC. EGD was performed todaywithout significant findings. Postoperatively patient was agitated refusing repeat hemoglobin. Patient wished to sign out AMA. AMA paperwork was provided. Twice daily PPI and p.o. iron were prescribed GI clinic follow-up has been ordered. Otherwise medication reconciliation per admitting med rec. Allergies Non-steroidal anti-inflammatory agent Tylenol (Non-steroidal anti-inflammatory drug) Consults Consult to Physician - Ordered -- 10/31/22 4:23:00 EDT, CYNDEE FRANCIS MD, Routine, GIB Objective Vitals and Measurements T: 37.0 C (Oral) TMIN: 36.02 C TMAX: 37.0 C (Oral) HR: 80(Monitored) RR: 16 BP: 125/55 SpO2: 97% HT: 152.4 cm WT: 100.2 kg BMI: 43.14 Weight Dosing Weight: 100.2 kg (10/31/22) Code Status Code Status - Ordered -- 10/31/22 4:23:00 EDT, Full Code, Constant Order Admission Date 10/31/2022 Discharge Date 10/31/2022 Medications New Prescription pantoprazole (Protonix 40 mg oral enteric coated tablet)1 tab(s) by mouth two (2) times a day for 30 Days. Refills: 0. Changed ferrous sulfate (ferrous sulfate 324 mg (65 mg elemental iron) oral delayed release tablet)1 tab(s)by mouth Monday / Monday / Monday for 30 Days. Refills: 0. Unchanged ascorbic acid (Vitamin C 500 mg oral tablet)2 tab(s) by mouth once a day. Refills: 0. Discontinued multivitamin (Multiple Vitamins oral tablet)1 tab(s) by mouth every day. Refills: 0. PARoxetine (Paxil 20 mg oral tablet)1 tab(s) by mouth daily at bedtime. Refills: 0. QUEtiapine (SEROquel 50 mg oral tablet)1 tab(s) by mouth daily at bedtime. Refills: 0. Follow Up Follow Up with AGNES SRIVASTAVA MD When Within 5 to 7 days Where: [id number] [facility] [place] [address]- [phone] Follow Up with Call AMB You Pt. Refferral [phone] When Within 1-2 days Follow Up Appointments No qualifying data available. Follow Up Labs/Studies Discharge Labs No Follow-up Labs Discharge Studies No Follow-up Studies Discharge Diet Discharge Diet - Ordered -- Type of Diet: Regular, 10/31/22 16:53:00 EDT Discharge Activity Discharge Activity - Ordered -- Resume your pre-hospitalization activity, 10/31/22 16:53:00 EDT Condition on Discharge n/a Readmission Risk/Palliative Score LACE Score: 8 (10/31/22 12:34:00) Palliative Total Score: 1 (10/31/22 12:34:00) Discharge Disposition AMA Information Provided To Patient at bedside Time Spent Greater than 30 minutes was spent reviewing chart, placing orders developing treatment plan with greater than 50% of time spent at bedside counseling/coordinating care Digitally Signed by DIMPLE TAVERAS MD on 10/31/2022 04:54 PM [facility] [id number] Nurse Progress note Patient requesting to be discharged. Dr. Taveras notified and stated patient would have to leave AMA.Paper given to nurse to discuss with patient. Digitally Signed by Sena Perez RN on 10/31/2022 04:44 PM [facility] [id number] Gastroenterology Progress note Date of Service Discussed results of patient's EGD with her today. Endoscopy showed evidence of her prior gastric bypass surgery but no findings to explain her acute anemia. Discussed pursuing a colonoscopy which patient prefers to complete in the outpatient setting. Would recommend to avoid NSAIDs and continue omeprazole prophylactically in the outpatient setting. We will follow-up on the pathology results whenavailable. Patient is very eager for discharge and would be cleared from a GI standpoint if she is deemed hemodynamically stable with repeat H&H. This could be in the morning although patient's wants to go home today. Will defer to primary team. Digitally Signed by GARRICK QUIROGA PA-C on 10/31/2022 03:27 PM [facility] [id number] Evaluation + Plan noteExtracted from: Title:History and Physical Author:AIDA MALONE Date:10/31/22 Melanotic stool Concern for UGIB, consider gastric ulcer vs. anastomotic ulcer Acute blood loss anemia Hx of Gastric Bypass Depression Bipolar Disorder Admit patient for GI evaluation of likely UGIB. GI consulted for EGD considerations. BUN on CMP elevated could point to UGI origin. Patient NPO. MIV 100 cc/hr LR. Protonix 40 mg IV BID. CBC ordered daily and transfuse if Hgb <7. BMP ordered daily and replete electrolytes as necessary. PRN Dilaudid for pain. PRN Zofran for Nausea. Continue home Paxil and Seroquel in the setting of depression, bipolar disorder. Diagnostic Tests Pending * Hemoglobin 10/31/22 * Hemoglobin/Hematocrit - Panel 10/31/22 [facility] 07-17-2023 Anesthesiology Progress note Patient: ZACK JAMESON Age: 32 years Sex: Female : 1990 Associated Diagnoses: None Author: SHARONDA VAUGHN MD Assessment Postanesthesia assessment Vitals: Vital signs from flowsheet : Vital Signs 10/31/2022 12:36 EDT Temperature Temporal Artery 36.3 DegC Heart Rate Monitored 84 bpm Respiratory Rate 16 br/min Systolic Blood Pressure Non-Invasive 96 mmHg Diastolic Blood Pressure Non-Invasive 55 mmHg LOW Mean Arterial Pressure (NBP) 68 mmHg 10/31/2022 12:30 EDT Heart Rate Monitored 97 bpm bpm Respiratory Rate - Anes 17 br/min br/min 10/31/2022 12:28 EDT Systolic Blood Pressure Non-Invasive 106 mmHg mmHg Diastolic Blood Pressure Non-Invasive 89 mmHg mmHg 10/31/2022 12:25 EDT Heart Rate Monitored 83 bpm bpm Respiratory Rate - Anes 10 br/min br/min Systolic Blood Pressure Non-Invasive 113 mmHg mmHg Diastolic Blood Pressure Non-Invasive 55 mmHg mmHg 10/31/2022 12:22 EDT Systolic Blood Pressure Non-Invasive 124 mmHg mmHg Diastolic Blood Pressure Non-Invasive 81 mmHg mmHg 10/31/2022 12:20 EDT Temperature (Route Not Specified) 36.02 DegC DegC Heart Rate Monitored 95 bpm bpm Respiratory Rate - Anes 10 br/min br/min 10/31/2022 12:19 EDT Systolic Blood Pressure Non-Invasive 127 mmHg mmHg Diastolic Blood Pressure Non-Invasive 88 mmHg mmHg 10/31/2022 12:16 EDT Systolic Blood Pressure Non-Invasive 107 mmHg mmHg Diastolic Blood Pressure Non-Invasive 81 mmHg mmHg 10/31/2022 12:15 EDT Heart Rate Monitored 90 bpm bpm Respiratory Rate - Anes 0 br/min br/min 10/31/2022 12:14 EDT Systolic Blood Pressure Non-Invasive 109 mmHg mmHg Diastolic Blood Pressure Non-Invasive 52 mmHg mmHg 10/31/2022 11:20 EDT Peripheral Pulse Rate 76 bpm Respiratory Rate 16 br/min 10/31/2022 10:46 EDT Temperature Oral 36.7 DegC Peripheral Pulse Rate 83 bpm Respiratory Rate 18 br/min Systolic Blood Pressure Non-Invasive 114 mmHg Diastolic Blood Pressure Non-Invasive 47 mmHg 10/31/2022 7:10 EDT Temperature Oral 36.7 DegC Peripheral Pulse Rate 89 bpm Respiratory Rate 18 br/min Systolic Blood Pressure Non-Invasive 97 mmHg Diastolic Blood Pressure Non-Invasive 49 mmHg 10/31/2022 5:20 EDT Temperature Oral 36.6 DegC Peripheral Pulse Rate 84 bpm Respiratory Rate 17 br/min Systolic Blood Pressure Non-Invasive 98 mmHg Diastolic Blood Pressure Non-Invasive 56 mmHg LOW Signs/Symptoms Transfusion Reaction No 10/31/2022 4:20 EDT Temperature Oral 36.6 DegC Peripheral Pulse Rate 85 bpm Respiratory Rate 18 br/min Systolic Blood Pressure Non-Invasive 94 mmHg Diastolic Blood Pressure Non-Invasive 51 mmHg LOW Signs/Symptoms Transfusion Reaction No , Oxygen Therapy : Oxygen Therapy & Oxygenation Information 10/31/2022 12:36 EDT Oxygen Therapy Blow by, Simple mask Oxygen Saturation 100 % Oxygen Flow Rate 8 10/31/2022 12:30 EDT Oxygen Saturation 100 % % 10/31/2022 12:25 EDT Oxygen Saturation 100 % % 10/31/2022 12:20 EDT Oxygen Saturation 100 % % 10/31/2022 12:15 EDT Oxygen Saturation 100 % % 10/31/2022 11:20 EDT Oxygen Therapy Room air 10/31/2022 10:46 EDT Oxygen Therapy Room air Oxygen Saturation 95 % 10/31/2022 7:10 EDT Oxygen Therapy Room air Oxygen Saturation 97 % 10/31/2022 5:20 EDT Oxygen Therapy Room air Oxygen Saturation 100 % 10/31/2022 4:20 EDT Oxygen Therapy Room air Oxygen Saturation 100 % . Mental status: at preoperative baseline. Respiratory function: respirations are non-labored. Respiratory support: oxygen delivery method via simple mask. CV function: Normal rate. Cardiovascular support: none. Pain. Nausea status: see nursing documentation of medications. Postoperative hydration status: within normal limits. Digitally Signed by SHARONDA VAUGHN MD on 10/31/2022 12:54 PM [facility] [id number] Procedure note Procedure: Upper endoscopy Indication: Anemia Provider: Radha Srivastava MD Patient profile: Patient presented with anemia. Prior history of gastric bypass surgery Medicines: Monitored anesthesia care Complications: No immediate complications. Procedure: Prior to the procedure, history and physical was performed and patient medications allergies and sensitivities were reviewed. The risks and benefits of the procedure and the sedation options and risks were discussed with the patient. All questions were answered and informed consent was obtained. Patient identification and proposed procedure were verified prior to the procedure by the physician and the nurse. After obtaining informed consent the endoscopy was passed under direct vision. Throughout the procedure the patient's blood pressure, pulse and oxygen saturations were monitored continuously. The procedure was accomplished without difficulty. The patient tolerated the procedure well. The endoscope was introduced through the mouth, and advanced to the second part of the duodenum. Upon discharge from the endoscopy area, the patient will be recovered per established procedures and protocols. Findings: Esophagus: Normal Stomach: Findings consistent with her prior history of gastric bypass surgery. No findings concerning for anastomotic ulcer. Mild gastritis, biopsies were obtained for the evaluation of H. pylori. The anastomosis site appeared stenotic and edematous, I was able to pass the scope with no resistance. Jejunum: Appeared within normal limits Impression: Findings consistent with her prior history of gastric bypass surgery. Recommendations: Discontinue NSAID use. Continue to monitor for active signs of GI bleed. Iron replacement therapy per primary team. Given her history of gastric bypass surgery patient is at risk for iron deficiency. She will benefit with long-term iron replacement/maintenance therapy. Should follow-up as an outpatient with her senior physical therapist to consider colonoscopy in the outpatient setting. Await pathology results. In the interim, continue with omeprazole 40 mg daily or PPI therapy daily. We will continue to follow. Digitally Signed by AGNES SRIVASTAVA MD on 10/31/2022 12:29 PM [facility] [id number] Procedure note Procedure: Upper endoscopy Indication: Anemia Provider: Radha rSivastava MD Patient profile: Patient presented with anemia. Prior history of gastric bypass surgery Medicines: Monitored anesthesia care Complications: No immediate complications. Procedure: Prior to the procedure, history and physical was performed and patient medications allergies and sensitivities were reviewed. The risks and benefits of the procedure and the sedation options and risks were discussed with the patient. All questions were answered and informed consent was obtained. Patient identification and proposed procedure were verified prior to the procedure by the physician and the nurse. After obtaining informed consent the endoscopy was passed under direct vision. Throughout the procedure the patient's blood pressure, pulse and oxygen saturations were monitored continuously. The procedure was accomplished without difficulty. The patient tolerated the procedure well. The endoscope was introduced through the mouth, and advanced to the second part of the duodenum. Upon discharge from the endoscopy area, the patient will be recovered per established procedures and protocols. Findings: Esophagus: Normal Stomach: Findings consistent with her prior history of gastric bypass surgery. No findings concerning for anastomotic ulcer. Mild gastritis, biopsies were obtained for the evaluation of H. pylori. The anastomosis site appeared stenotic and edematous, I was able to pass the scope with no resistance. Jejunum: Appeared within normal limits Impression: Findings consistent with her prior history of gastric bypass surgery. Recommendations: Discontinue NSAID use. Continue to monitor for active signs of GI bleed. Iron replacement therapy per primary team. Given her history of gastric bypass surgery patient is at risk for iron deficiency. She will benefit with long-term iron replacement/maintenance therapy. Should follow-up as an outpatient with her senior physical therapist to consider colonoscopy in the outpatient setting. Await pathology results. In the interim, continue with omeprazole 40 mg daily or PPI therapy daily. We will continue to follow. Digitally Signed by AGNES SRIVSATAVA MD on 10/31/2022 12:29 PM [facility] [id number] Procedure note Procedure: Upper endoscopy Indication: Anemia Provider: Radha Srivastava MD Patient profile: Patient presented with anemia. Prior history of gastric bypass surgery Medicines: Monitored anesthesia care Complications: No immediate complications. Procedure: Prior to the procedure, history and physical was performed and patient medications allergies and sensitivities were reviewed. The risks and benefits of the procedure and the sedation options and risks were discussed with the patient. All questions were answered and informed consent was obtained. Patient identification and proposed procedure were verified prior to the procedure by the physician and the nurse. After obtaining informed consent the endoscopy was passed under direct vision. Throughout the procedure the patient's blood pressure, pulse and oxygen saturations were monitored continuously. The procedure was accomplished without difficulty. The patient tolerated the procedure well. The endoscope was introduced through the mouth, and advanced to the second part of the duodenum. Upon discharge from the endoscopy area, the patient will be recovered per established procedures and protocols. Findings: Esophagus: Normal Stomach: Findings consistent with her prior history of gastric bypass surgery. No findings concerning for anastomotic ulcer. Mild gastritis, biopsies were obtained for the evaluation of H. pylori. The anastomosis site appeared stenotic and edematous, I was able to pass the scope with no resistance. Jejunum: Appeared within normal limits Impression: Findings consistent with her prior history of gastric bypass surgery. Recommendations: Discontinue NSAID use. Continue to monitor for active signs of GI bleed. Iron replacement therapy per primary team. Given her history of gastric bypass surgery patient is at risk for iron deficiency. She will benefit with long-term iron replacement/maintenance therapy. Should follow-up as an outpatient with her senior physical therapist to consider colonoscopy in the outpatient setting. Await pathology results. In the interim, continue with omeprazole 40 mg daily or PPI therapy daily. We will continue to follow. Digitally Signed by AGNES SRIVASTAVA MD on 10/31/2022 12:29 PM [facility] [id number] Gastroenterology Consult note Date of Service 10/31/2022 Reason for Consultation GI bleed Referring Physician Mena History of Present Illness Patient is a 32-year-old female with a past medical history significant for depression, bipolar disorder, and history Yovani-en-Y gastric bypass surgery who was transferred here from for a suspectedGI bleed. Patient states she began having bleeding 2 days ago which consisted of dark maroon blood with areas of dark black/coffee grounds. Patient reports she had a GI bleed last year requiring transfusion and underwent an EGD with cauterization of esophageal ulcers at [facility]. She has not followed up with GI since that time and is not on antacid therapy. She does not take NSAIDs or anticoagulants. She has not had a bowel movement or blood per rectum since 2 PM yesterday. She has no abdominal pain, nausea, or hematemesis. Denies acid reflux complaints including heartburn, indigestion, or acidic regurgitation. Was eating and tolerating a regular diet without difficulty. No dysphagia or odynophagia. Bowels were moving regularly. She denies weight loss. She does not drink alcohol or use tobacco products/illicits. Initially in , CBC showed a hemoglobin 6.9 and a CMP with BUN 25. Lipase was within normal limits. CT abdomen pelvis demonstrated evidence of prior gastric bypass without overt evidence of bleedingsource. She did receive 1 unit PRBC prior to transfer. She is currently hemodynamically stable witha repeat hemoglobin 7.7 this morning. MCV 85.4 and platelet count 231. BUN 15, creatinine 0.58, andratio 25.9. She has been started on IV Protonix twice daily. She is currently NPO. Review of Systems 10 point review of systems normal unless otherwise noted in the HPI. Physical Exam Vitals and Measurements T: 36.7 C (Oral) TMIN: 36.6 C (Oral) TMAX: 36.7 C (Oral) HR: 89 RR: 18 BP: 97/49 SpO2: 97% HT: 152.4 cm WT: 100.2 kg BMI: 43.14 Weight Dosing Weight: 100.2 kg (10/31/22) General: Awake and alert and in no apparent distress. Able to answer questions and speak in full sentences. HEENT: Mucous membranes moist and pink. Sclerae anicteric. PERRLA. Neuro: Alert and oriented x3. Speech is clear and regular. Heart: Regular rate and rhythm. S1-S2 are present. Lungs: Chest rise symmetrical. Respirations unlabored. Clear to auscultation bilaterally. Abdomen: Soft and nontender. Nondistended. No guarding or rigidity. Bowel sounds 4 quadrants. No palpated splenomegaly or hepatomegaly. Skin: Warm and dry. No pallor or diaphoresis. No jaundice. Lab Results 10/31 06:17 WBC: 7.1 Hgb: 7.7 L Hct: 23.0 L Platelet: 231 Glucose Level: 83 Sodium Level: 141 Potassium Level: 3.5 BUN: 15.0 Creatinine Lvl (s): 0.58 Assessment/Plan Orders: Esophagogastroduodenoscopy Sign Consent Melena/hematochezia Acute blood loss anemia History esophageal ulcers History Yovani-en-Y gastric bypass We have been consulted to evaluate this patient for a suspected upper GI bleed. Patient presented with a 2-day history of dark red/melanotic stools. Initial hemoglobin on arrival was 6.9 which improved to 7.7 after 1 unit PRBC. Baseline is unclear. BUN/creatinine ratio slightly elevated. She is currently hemodynamically stable and free from any further overt bleeding. No additional GI complaints and abdominal exam is entirely benign. Given patient's prior history of esophageal ulcers, this certainly remains in the differentials in the absence of ongoing antireflux therapy. Other differentials including PUD/gastropathy and AVMs are considered. No suspicion for variceal bleeding and less likely to be related to underlying malignancy given her recent EGD last year. She has been started on IV Protonix twice daily appropriately which we will continue. She is currently n.p.o. and we will proceed with an EGD this afternoon with Dr. Srivastava. Risks and benefits were reviewed. Further recommendations to follow. Problem List/Past Medical History Ongoing Bipolar 1 disorder Overdose Substance abuse Historical No qualifying data Procedure/Surgical History No qualifying data available. Medications Inpatient DuoNeb, 3 mL, Inhalation, q4hRT, PRN LR 1,000 mL, 1000 mL, Intravenous morphine, 2 mg= 1 mL, IV Push, q4h, PRN morphine, 4 mg= 1 mL, IV Push, q4h, PRN Protonix IV Push, 40 mg, IV Push, BIDAC Tylenol, 650 mg= 2 tab(s), Oral, q4h, PRN Zofran, 4 mg= 2 mL, IV Push, q4h, PRN Home ferrous sulfate 325 mg (65 mg elemental iron) oral tablet, 325 mg= 1 tab(s), Oral, qDayM, Not taking Multiple Vitamins oral tablet, 1 tab(s), Oral, Daily, Not taking Paxil 20 mg oral tablet, 20 mg= 1 tab(s), Oral, qHS, Not taking SEROquel 50 mg oral tablet, 50 mg= 1 tab(s), Oral, qHS, Not taking Vitamin C 500 mg oral tablet, 1000 mg= 2 tab(s), Oral, qDay, Not taking Allergies Non-steroidal anti-inflammatory agent Tylenol (Non-steroidal anti-inflammatory drug) Social History Smoking Status - 10/26/2017 Never smoker Family History No family history of GI cancers or liver disease Immunizations No qualifying data available. Digitally Signed by GARRICK QUIROGA PA-C on 10/31/2022 10:20 AM [facility] [id number] Anesthesiology Progress note Patient: ZACK JAMESON Age: 32 years Sex: Female : 1990 Associated Diagnoses: None Author: SHARONDA VAUGHN MD Preoperative Information > 8 hours patient vomited yesterday after eating. No food since then. Anesthesia history Patient's history: negative. Family's history: negative. Health Status Allergies: Allergic Reactions (Selected) Severity Not Documented Non-steroidal anti-inflammatory agent- No reactions were documented. Tylenol- Non-steroidal anti-inflammatory drug., Allergies (2) ActiveReaction Non-steroidal anti-inflammatoryNone Documented agent TylenolNon-steroidal anti-inflammatory drug Current medications: (Selected) Inpatient Medications Ordered DuoNeb: 3 mL, Inhalation, q4hRT, PRN: Shortness of breath or wheezing LR 1,000 mL: 100 mL/hr, Intravenous, Stop: 11/01/22 1:33:00 EDT Protonix IV Push: 40 mg, IV Push, BIDAC Tylenol: 650 mg, 2 tab(s), Oral, q4h, PRN: Pain, scale 1-3 Zofran: 4 mg, 2 mL, IV Push, q4h, PRN: Nausea/Vomiting morphine: 2 mg, 1 mL, IV Push, q4h, PRN: Pain, scale 4-6 morphine: 4 mg, 1 mL, IV Push, q4h, PRN: Pain, scale 7-10 Prescriptions Prescribed Multiple Vitamins oral tablet: 1 tab(s), Oral, Daily, 30 tab(s), 0 Refill(s) Paxil 20 mg oral tablet: 20 mg, 1 tab(s), Oral, qHS, 30 tab(s), 0 Refill(s) SEROquel 50 mg oral tablet: 50 mg, 1 tab(s), Oral, qHS, 30 tab(s), 0 Refill(s) Vitamin C 500 mg oral tablet: 1,000 mg, 2 tab(s), Oral, qDay, 60 tab(s), 0 Refill(s) ferrous sulfate 325 mg (65 mg elemental iron) oral tablet: 325 mg, 1 tab(s), Oral, qDayM, 30 tab(s), 0 Refill(s), Medications (7) Active Scheduled: (1) pantoprazole 40 mg VIAL 40 mg, IV Push, BIDAC Continuous: (1) Lactated Ringers 1,000 mL 1,000 mL, Intravenous, 100 mL/hr PRN: (5) acetaminophen 325 mg Tablet 650 mg 2 tab(s), Oral, q4h albuterol - ipratropium 2.5 mg-0.5 mg/3 mL Inhal Monika UD 3 mL, Inhalation, q4hRT morphine 2 mg/mL 1 mL syringe 2 mg 1 mL, IV Push, q4h morphine 4 mg/mL 1mL INJ 4 mg 1 mL, IV Push, q4h ondansetron 2 mg/ 1 mL 2 mL INJ 4 mg 2 mL, IV Push, q4h Problem list: Medical Bipolar 1 disorder / SNOMED CT 1937373919 / Confirmed Overdose / SNOMED CT 55382859 / Confirmed Substance abuse / SNOMED CT [id number] / Confirmed, Active Problems (3) Bipolar 1 disorder Overdose Substance abuse Histories Past Medical History: Active Substance abuse ([id number]) Procedure history: No active procedure history items have been selected or recorded. Social History Social & Psychosocial Habits No Data Available . Physical Examination Measurements from flowsheet : Measurements 10/31/2022 4:22 EDT Height 152.4 cm Height in inches 60 inch(es) Admission Weight 100.2 kg Weight Lbs 220.4 lb [facility] Body Weight 45.50 kg Type of Scale Used Bed scale BSA Admission 1.95 Body Mass Index 43.14 kg/m2 General: Alert and oriented, No acute distress. Airway: Mallampati classification: II (soft palate, fauces, uvula visible). Head: Normocephalic, Atraumatic. Dentition Evaluation: Dentures, upper, lower teeth present. Respiratory: Lungs are clear to auscultation, Respirations are non-labored. Cardiovascular: Normal rate. Heart Sounds: Normal. Neurologic: Alert, Oriented. Review / Management Documentation reviewed: Current records, Reviewed prior records. Assessment and Plan [place] [employer] (ASA) physical status classification: Class II. Anesthetic Preoperative Plan Anesthetic technique: General. Induction: intravenously. Maintenance airway: Oral endotracheal tube. Postoperative pain management: Per surgeon. Risks discussed: nausea, vomiting, headache, sore throat, dental injury, hypotension, allergic reaction, serious complications. Informed consent: signed by patient. Digitally Signed by SHARONDA VAUGHN MD on 10/31/2022 11:37 AM Digitally Signed by SHARONDA VAUGHN MD on 10/31/2022 11:40 AM Digitally Signed by SHARONDA VAUGHN MD on 10/31/2022 11:44 AM Digitally Signed by SHARONDA VAUGHN MD on 10/31/2022 11:45 AM [id number] Gastroenterology Consult note Date of Service 10/31/2022 Reason for Consultation GI bleed Referring Physician Mena History of Present Illness Patient is a 32-year-old female with a past medical history significant for depression, bipolar disorder, and history Yovani-en-Y gastric bypass surgery who was transferred here from for a suspectedGI bleed. Patient states she began having bleeding 2 days ago which consisted of dark maroon blood with areas of dark black/coffee grounds. Patient reports she had a GI bleed last year requiring transfusion and underwent an EGD with cauterization of esophageal ulcers at [facility]. She has not followed up with GI since that time and is not on antacid therapy. She does not take NSAIDs or anticoagulants. She has not had a bowel movement or blood per rectum since 2 PM yesterday. She has no abdominal pain, nausea, or hematemesis. Denies acid reflux complaints including heartburn, indigestion, or acidic regurgitation. Was eating and tolerating a regular diet without difficulty. No dysphagia or odynophagia. Bowels were moving regularly. She denies weight loss. She does not drink alcohol or use tobacco products/illicits. Initially in , CBC showed a hemoglobin 6.9 and a CMP with BUN 25. Lipase was within normal limits. CT abdomen pelvis demonstrated evidence of prior gastric bypass without overt evidence of bleedingsource. She did receive 1 unit PRBC prior to transfer. She is currently hemodynamically stable witha repeat hemoglobin 7.7 this morning. MCV 85.4 and platelet count 231. BUN 15, creatinine 0.58, andratio 25.9. She has been started on IV Protonix twice daily. She is currently NPO. Review of Systems 10 point review of systems normal unless otherwise noted in the HPI. Physical Exam Vitals and Measurements T: 36.7 C (Oral) TMIN: 36.6 C (Oral) TMAX: 36.7 C (Oral) HR: 89 RR: 18 BP: 97/49 SpO2: 97% HT: 152.4 cm WT: 100.2 kg BMI: 43.14 Weight Dosing Weight: 100.2 kg (10/31/22) General: Awake and alert and in no apparent distress. Able to answer questions and speak in full sentences. HEENT: Mucous membranes moist and pink. Sclerae anicteric. PERRLA. Neuro: Alert and oriented x3. Speech is clear and regular. Heart: Regular rate and rhythm. S1-S2 are present. Lungs: Chest rise symmetrical. Respirations unlabored. Clear to auscultation bilaterally. Abdomen: Soft and nontender. Nondistended. No guarding or rigidity. Bowel sounds 4 quadrants. No palpated splenomegaly or hepatomegaly. Skin: Warm and dry. No pallor or diaphoresis. No jaundice. Lab Results 10/31 06:17 WBC: 7.1 Hgb: 7.7 L Hct: 23.0 L Platelet: 231 Glucose Level: 83 Sodium Level: 141 Potassium Level: 3.5 BUN: 15.0 Creatinine Lvl (s): 0.58 Assessment/Plan Orders: Esophagogastroduodenoscopy Sign Consent Melena/hematochezia Acute blood loss anemia History esophageal ulcers History Yovani-en-Y gastric bypass We have been consulted to evaluate this patient for a suspected upper GI bleed. Patient presented with a 2-day history of dark red/melanotic stools. Initial hemoglobin on arrival was 6.9 which improved to 7.7 after 1 unit PRBC. Baseline is unclear. BUN/creatinine ratio slightly elevated. She is currently hemodynamically stable and free from any further overt bleeding. No additional GI complaints and abdominal exam is entirely benign. Given patient's prior history of esophageal ulcers, this certainly remains in the differentials in the absence of ongoing antireflux therapy. Other differentials including PUD/gastropathy and AVMs are considered. No suspicion for variceal bleeding and less likely to be related to underlying malignancy given her recent EGD last year. She has been started on IV Protonix twice daily appropriately which we will continue. She is currently n.p.o. and we will proceed with an EGD this afternoon with Dr. Srivastava. Risks and benefits were reviewed. Further recommendations to follow. Problem List/Past Medical History Ongoing Bipolar 1 disorder Overdose Substance abuse Historical No qualifying data Procedure/Surgical History No qualifying data available. Medications Inpatient DuoNeb, 3 mL, Inhalation, q4hRT, PRN LR 1,000 mL, 1000 mL, Intravenous morphine, 2 mg= 1 mL, IV Push, q4h, PRN morphine, 4 mg= 1 mL, IV Push, q4h, PRN Protonix IV Push, 40 mg, IV Push, BIDAC Tylenol, 650 mg= 2 tab(s), Oral, q4h, PRN Zofran, 4 mg= 2 mL, IV Push, q4h, PRN Home ferrous sulfate 325 mg (65 mg elemental iron) oral tablet, 325 mg= 1 tab(s), Oral, qDayM, Not taking Multiple Vitamins oral tablet, 1 tab(s), Oral, Daily, Not taking Paxil 20 mg oral tablet, 20 mg= 1 tab(s), Oral, qHS, Not taking SEROquel 50 mg oral tablet, 50 mg= 1 tab(s), Oral, qHS, Not taking Vitamin C 500 mg oral tablet, 1000 mg= 2 tab(s), Oral, qDay, Not taking Allergies Non-steroidal anti-inflammatory agent Tylenol (Non-steroidal anti-inflammatory drug) Social History Smoking Status - 10/26/2017 Never smoker Family History No family history of GI cancers or liver disease Immunizations No qualifying data available. Digitally Signed by GARRICK QUIROGA PA-C on 10/31/2022 10:20 AM [facility] [id number] Nurse Progress note Patient arrived from with blood running. Blood finished at 0416. Vitals were taken and recorded.No signs or symptoms of a reaction noted. Digitally Signed by Melvi Malone RN on 10/31/2022 04:30 AM [facility] [id number] History and physical note Date of Service 10/31/2022 Chief Complaint GIB History of Present Illness 32 yo F w/a PMH consistent with depression, bipolar disorder, hx of gastric bypass presents from out of concern for a GIB. Patient states that over the last few days she has noticed melanotic stools. Has a history of gastric bypass and states that she had an EGD last year that showed ulcers that were cauterized. Her lastBM was last night before transfer and she said it was maroon colored. In , CBC with Hgb of 6.9 and CMP with BUN of 25. Lipase within normal limits. CTAP demonstrated evidence of prior gastric bypass but without overt evidence of bleeding source. EKG demonstrating sinus tachycardia at the time. S/p 1 U PRBC in the ED. On exam, patient in no acute distress. Vital signs stable. No new issues or complaints. Denies CP, SOB, NVD, fevers, chills. Review of Systems Complete detailed review of systems obtained and all pertinent positives and negatives are noted inthe history of present illness. Physical Exam Vitals and Measurements T: 36.6 C (Oral) HR: 85 RR: 18 BP: 94/51 SpO2: 100% HT: 152.4 cm WT: 100.2 kg BMI: 43.14 Weight Dosing Weight: 100.2 kg (10/31/22) Physical Examination General: No apparent distress. Alert and appropriate. HEENT: NCAT EOMI Neck: Supple. No appreciable elevation in JVP. Cardiovascular: S1 S2 normal. No extra-audible heart tones. Respiratory: Bilaterally clear breath sounds with no crepitation or wheeze. Abdominal: Soft, nontender and nonrigid. No guarding. Bowel sounds present. Extremities: No edema. Adequate peripheral circulation. Neurological: Grossly intact without focal deficit. Cerebellar function preserved. Skin: Intact. Dry. No rash. Lab Results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
--- OUTSIDE RECORDS SUMMARY | 2024-11-14 21:39 | XMS RPT_ITS | CCD ---
Author Organization 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 Name Role Phone SPIRTOS, CARRINGTON Unavailable Unavailable SPIRTOS, CARRINGTON Unavailable Unavailable RIGO, RALPH C Unavailable Unavailable [facility] Unavailable Unavailable [facility] Unavailable Unavailable RIGO, RALPH C Unavailable Unavailable [facility] Unavailable Unavailable [facility] Unavailable Unavailable RIGO, RALPH C Unavailable Unavailable [facility] Unavailable Unavailable RIGO, RALPH C Unavailable Unavailable RIGO, RALPH C Unavailable Unavailable LISSETH, CORA Unavailable Unavailable LISSETH, CORA Unavailable Unavailable LISSETH, CORA Unavailable Unavailable [place] [place]MARYCARMEN Unavailable Unavailab le LISSETH CORA Unavailable Unavailable LISSETH CORA Unavailable Unavailable LINCOLN IVEY Primary Care Provider PREETI EDWARD Emergency Provider GABRIEL MILES Attending Unavailable PROVIDER, UNKNOWN Referring Unavailable No, PCP Primary Care Unavailable Nancy De Souza Attending Unavailable PROVIDER, UNKNOWN Referring Unavailable No, PCP Primary Care Unavailable GRADY, JAKY Referring Unavailable GRADY, JAYK Referring Unavailable GRADY, JAKY Referring Unavailable NO [...] Arlene DO, P. Mike Primary Care Provider [phone] ARLENE, P. MIKE Referring Unavailable ARLENE, P. [...] Arlene DO, P. Mike Primary Care Provider GABRIEL CLAROS Primary Care Unavailable KARINA CHEN [...] SHIDYAK, AMJAD Primary Care Unavailable UNGERER, NAYE LEHR TENDER Consulting Unavailable UNGERER, NAYE LEHR TENDER Attending Unavailable UNGERER, NAYE LEHR TENDER Admitting Unavailable UNGERER, NAYE LEHR TENDER Primary Care Unavailable PROVIDER, UNKNOWN Consulting Unavailable UNGERER, NAYE LEHR TENDER Consulting Unavailable O'SULTANA, MELANIE LEHR TENDER Admitting Unavailable O'SULTANA, MELANIE LEHR TENDER Primary Care Unavailable O'SULTANA, MELANIE LEHR TENDER Attending Unavailable PROVIDER, UNKNOWN Consulting Unavailable UNGERER, NAYE LEHR TENDER Primary Care Unavailable UNGERER, NAYE LEHR TENDER Consulting Unavailable UNGERER, NAYE LEHR TENDER Attending Unavailable UNGERER, NAYE LEHR TENDER Admitting Unavailable PROVIDER, UNKNOWN Consulting Unavailable SHAINA ADLER MD Primary Care Unavailable SHAINA ADLER MD Attending Unavailable SHAINA ADLER MD Admitting Unavailable PREETI AVINA Admitting Unavailable PREETI AVINA Primary Care Unavailable PREETI AVINA Attending Unavailable NAYE RHODES NP Consulting Unavailable PROVIDER, UNKNOWN Consulting Unavailable Dimitris LEHR TENDER-CFalguni Primary Care Provider Dimitris LEHR TENDER-CFalguni Attending Provider GABI MCLEOD Attending UnavailNADIYA Meyer Referring Unavailable ARLENE, P. MIKE Primary Care Unavailable ARLENE, P. MIKE Referring Unavailable ARLENE, P. MIKE Primary Care Unavailable Dimitris LEHR TENDER-CFalguni Referring Provider Dr. Jersey Zendejas MD Attending Provider Falguni Shanks Referring Unavailable Falguni Shanks Primary Care Unavailable Jersey Zendejas Attending Unavailable Falguni Shanks Attending Unavailable Falguni Shanks Primary Care Unavailable Allergies Allergy Classification Reported Allergen(s) Allergy Type Date of Onset Reaction(s) Facility (2 sources) Adhesive Tape; Translations: [ADHESIVE TAPE (ROSINS)] Propensity to adverse reactions (disorder) 8 [facility] Repository (1 source) Acetaminophen; Translations: [acetaminophen] Drug Allergy Non-steroidal anti-inflammato ry agent (product) [facility] (1 source) Ibuprofen; Translations: [ibuprofen] Drug Allergy [facility] (5 sources) hydrOXYzine; Translations: [hydroxyzine] Drug Allergy 8 [facility] (3 sources) Aspirin Drug Allergy 3 [facility] (3 sources) Aluminum aspirin Drug Allergy 8 [facility] (3 sources) buPROPion Drug Allergy 8 Itching [facility] (3 sources) *Adhesive Tape Propensity to adverse reactions 6 Itching, Rash [facility] (2 sources) Adhesive agent; Translations: [ADHESIVE] Propensity to adverse reactions to drug (disorder) 3 [facility] Repository (2 sources) hydrOXYzine; Translations: [HYDROXYZINE PAMOATE] Drug Allergy 3 [facility] Repository (1 source) Adhesive Tape; Translations: [TAPE] Propensity to adverse reactions (disorder) [facility] Repository (1 source) hydrOXYzine Drug Allergy [facility] Repository (1 source) UNKNOWN ANTI-INFLAMMATO RY MED Drug allergy (disorder) [facility] Repository (1 source) 10/12/17 (+) MRSA WOUND; Translations: [10/12/17 (+) MRSA WOUND] Propensity to adverse reactions (disorder) [facility] Repository (1 source) 03/11/19 (-) MRSA SCREEN NARES; Translations: [03/11/19 (-) MRSA SCREEN NARES] Propensity to adverse reactions (disorder) [facility] Repository (1 source) Aspirin Drug Allergy 5 [facility] Repository Medications Current Medications Medication Drug Class(es) Dates Sig (Normalized) Sig (Original) acetaminophen 325 mg / HYDROcodone bitartrate 5 mg oral tablet (1 source) Opioid Agonist Start: 10-02-2015 Hydrocodone Bit/Acetaminophen ([place] 5/325 Mg Tablet) 1 EACH Tablet Active [...] tab(s), 0 Refill(s), 11/30/22 16:48:00 EDT, Pharmacy: [facility], 152.4, cm, 10/31/22 4:22:00 [...] BID, # 60 tab(s), 0 Refill(s), Pharmacy: [facility], 152.4, cm, 10/31/22 4:22:00 [...] qDay, # 60 tab(s), 0 Refill(s), Pharmacy: [facility] Start Date: 10/27/17 Status: Ordered Problems Active [...] Report on 11-01-2024 Plastic Surgery Visit Report [facility] Plastic Reconstructive Surgery [address], [address] [place] [address] OFFICE VISIT Date of Service: 11/01/24 MR#: [id number] Acct: [id number] Name: ZACK JAMESON Rep #: [id number] : 1990 Provider: Dr. 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 She had a consultation at [facility] for panniculectomy and they recommended that she [...] would be a good candidate for a [id number] panniculectomy. Her pannus overhangs the pubic symphysis [...] My cuto (more content not included)... Normal [facility] Absolute lymphocyte countOrd ered By: Falguni Shanks on 08-27-2024 Lymphocytes Auto (Unsp spec) [#/Vol] 2.38 10*3/uL 0.83-4.51 [facility] Absolute neutrophil countOrd ered By: Falguni Shanks on 08-27-2024 Neutrophils (Bld) [#/Vol] 4.1 10*3/uL 2.0-7.7 [facility] Anion gap in Serum or Plasma Ordered By: Falguni Shanks on 08-27-2024 Anion gap [Moles/Vol] 12 mmol/L 5-15 [facility] Automated lymphocyte count a s percentage of total leukocytesOrdered By: Falguni Shanks on 08-27-2024 Lymphocytes/100 WBC Auto (Unsp spec) 33.2 % 19-41 [facility] BUN/creatinine ratioOrdered By: Falguni Shanks on 08-27-2024 Urea nitrogen/Creatinine [Mass ratio] 26.1 mg/mg High 10-20 [facility] Basophil percentageOrdered B y: Falguni Shanks on 08-27-2024 Basophils/100 WBC (Bld) 1.0 % 0-1 [facility] Bilirubin, totalOrdered By: Falguni Shanks on 08-27-2024 Bilirubin [Mass/Vol] 0.26 mg/dL 0.00-1.30 [facility] CBC W/Diff, Automatedon 08-15 Absolute Lymph 2.38 X10 3/uL Normal 0.83-4.51 [facility] Comment on above: Performed By: #### L 501.9985, L503.6550, L500.4050, L503.6030, L100.0100, L503.0106 #### [facility] [address] [place], [address] Absolute Neut 4.1 X10 3/uL Normal 2.0-7.7 [facility] Comment on above: Performed By: #### L 501.9985, L503.6550, L500.4050, L503.6030, L100.0100, L503.0106 #### [facility] [address] [place], [address] Basophils/100 WBC (Bld) 1.0 % Normal 0-1 [facility] Comment on above: Performed By: #### L 501.9985, L503.6550, L500.4050, L503.6030, L100.0100, L503.0106 #### [facility] [address] [place], [address] Eosinophils/100 WBC (Bld) 2.0 % Normal 0-5 [facility] Comment on above: Performed By: #### L 501.9985, L503.6550, L500.4050, L503.6030, L100.0100, L503.0106 #### [facility] [address] [place], [address] Erythrocyte distribution width (RBC) [Ratio] 12.2 % Normal 11.6-14.6 [facility] Comment on above: Performed By: #### L 501.9985, L503.6550, L500.4050, L503.6030, L100.0100, L503.0106 #### [facility] [address] [place], [address] Hematocrit (Bld) [Volume fraction] 38.2 % Normal 37-47 [facility] Comment on above: Performed By: #### L 501.9985, L503.6550, L500.4050, L503.6030, L100.0100, L503.0106 #### [facility] [address] [place], [address] Hemoglobin (Bld) [Mass/Vol] 13.0 g/dL Normal 12.0-15.0 [facility] Comment on above: Performed By: #### L 501.9985, L503.6550, L500.4050, L503.6030, L100.0100, L503.0106 #### [facility] [address] [place], [address] IG% 0.300 Normal 0.0-0.9 [facility] Comment on above: Result Comment: IG% - Immature Granulocytes (promyelocytes, myelocytes and metamyelocytes) > 1% indicates that a LEFT SHIFT is Present. Performed By: #### L 501.9985, L503.6550, L500.4050, L503.6030, L100.0100, L503.0106 #### [facility] [address] [place], [address] Lymphocytes/100 WBC (Bld) 33.2 % Normal 19-41 [facility] Comment on above: Performed By: #### L 501.9985, L503.6550, L500.4050, L503.6030, L100.0100, L503.0106 #### [facility] [address] [place], [address] MCH (RBC) [Entitic mass] 31.9 pg Normal 27.0-32.0 [facility] Comment on above: Performed By: #### L 501.9985, L503.6550, L500.4050, L503.6030, L100.0100, L503.0106 #### [facility] [address] [place], [address] MCHC (RBC) [Mass/Vol] 34.0 g/dL Normal 32-36 [facility] Comment on above: Performed By: #### L 501.9985, L503.6550, L500.4050, L503.6030, L100.0100, L503.0106 #### [facility] [address] [place], [address] MCV (RBC) [Entitic vol] 93.6 fL Normal 81-99 [facility] Comment on above: Performed By: #### L 501.9985, L503.6550, L500.4050, L503.6030, L100.0100, L503.0106 #### [facility] [address] [place], [address] Monocytes/100 WBC (Bld) 6.4 % Normal 0-10 [facility] Comment on above: Performed By: #### L 501.9985, L503.6550, L500.4050, L503.6030, L100.0100, L503.0106 #### [facility] [address] [place], [address] Neutrophils/100 WBC (Bld) 57.1 % Normal 47-70 [facility] Comment on above: Performed By: #### L 501.9985, L503.6550, L500.4050, L503.6030, L100.0100, L503.0106 #### [facility] [address] [place], [address] Nucleated RBC (Bld) [#/Vol] 0 10*3/uL Normal 0-5 [facility] Comment on above: Performed By: #### L 501.9985, L503.6550, L500.4050, L503.6030, L100.0100, L503.0106 #### [facility] [address] [place], [address] Platelet mean volume (Bld) [Entitic vol] 9.3 fL Normal 6.2-12.0 [facility] Comment on above: Performed By: #### L 501.9985, L503.6550, L500.4050, L503.6030, L100.0100, L503.0106 #### [facility] [address] [place], [address] Platelets (Bld) [#/Vol] 297 10*3/uL Normal 150-450 [facility] Comment on above: Performed By: #### L 501.9985, L503.6550, L500.4050, L503.6030, L100.0100, L503.0106 #### [facility] [address] [place], [address] RBC (Bld) [#/Vol] 4.08 10*6/uL Low 4.2-5.4 [facility] Comment on above: Performed By: #### L 501.9985, L503.6550, L500.4050, L503.6030, L100.0100, L503.0106 #### [facility] [address] [place], [address] RDW SD 41.9 fl Normal 35.1-43.9 [facility] Comment on above: Performed By: #### L 501.9985, L503.6550, L500.4050, L503.6030, L100.0100, L503.0106 #### [facility] [address] [place], [address] WBC (Bld) [#/Vol] 7.2 10*3/uL Normal 4.4-11.0 [facility] Comment on above: Performed By: #### L 501.9985, L503.6550, L500.4050, L503.6030, L100.0100, L503.0106 #### [facility] [address] [place], [address] Carbon dioxide, total [Moles /volume] in Central venous bloodOrdered By: Falguni Shanks on 08-27-2024 CO2 [Moles/Vol] 19.6 mmol/L Low 21.0-32.0 [facility] Chloride assayOrdered By: Evelin Shanks on 08-27-2024 Chloride [Moles/Vol] 105 mmol/L 98-108 [facility] Comprehensive Metabolic Prof ilon 08-27-2024 Albumin [Mass/Vol] 4.1 g/dL Normal 3.5-5.0 [facility] Comment on above: Performed By: #### L 501.9985, L503.6550, L500.4050, L503.6030, L100.0100, L503.0106 #### [facility] [address] [place], [address] Albumin/Globulin [Mass ratio] 1.6 {ratio} Normal 0.9-2.4 [facility] Comment on above: Performed By: #### L 501.9985, L503.6550, L500.4050, L503.6030, L100.0100, L503.0106 #### [facility] [address] [place], [address] ALK PHOS 53 U/L Normal 35-104 [facility] Comment on above: Performed By: #### L 501.9985, L503.6550, L500.4050, L503.6030, L100.0100, L503.0106 #### [facility] [address] [place], [address] ALT [Catalytic activity/Vol] 14 U/L Normal <=34 [facility] Comment on above: Performed By: #### L 501.9985, L503.6550, L500.4050, L503.6030, L100.0100, L503.0106 #### [facility] [address] [place], [address] AST [Catalytic activity/Vol] 18 U/L Normal <=31 [facility] Comment on above: Performed By: #### L 501.9985, L503.6550, L500.4050, L503.6030, L100.0100, L503.0106 #### [facility] [address] [place], [address] Bilirubin [Mass/Vol] 0.26 mg/dL Normal 0.00-1.30 [facility] Comment on above: Performed By: #### L 501.9985, L503.6550, L500.4050, L503.6030, L100.0100, L503.0106 #### [facility] [address] [place], [address] BUN/CRE 26.1 RATIO High 10-20 [facility] Comment on above: Performed By: #### L 501.9985, L503.6550, L500.4050, L503.6030, L100.0100, L503.0106 #### [facility] [address] [place], [address] Calcium [Mass/Vol] 9.4 mg/dL Normal 7.6-11.0 [facility] Comment on above: Performed By: #### L 501.9985, L503.6550, L500.4050, L503.6030, L100.0100, L503.0106 #### [facility] [address] [place], [address] Chloride [Moles/Vol] 105 mmol/L Normal 98-108 [facility] Comment on above: Performed By: #### L 501.9985, L503.6550, L500.4050, L503.6030, L100.0100, L503.0106 #### [facility] [address] [place], [address] CO2 [Moles/Vol] 19.6 mmol/L Low 21.0-32.0 [facility] Comment on above: Performed By: #### L 501.9985, L503.6550, L500.4050, L503.6030, L100.0100, L503.0106 #### [facility] [address] [place], [address] Creatinine [Mass/Vol] 0.56 mg/dL Low 0.70-1.20 [facility] Comment on above: Performed By: #### L 501.9985, L503.6550, L500.4050, L503.6030, L100.0100, L503.0106 #### [facility] [address] [place], [address] GAP 12 Normal 5-15 [facility] Comment on above: Performed By: #### L 501.9985, L503.6550, L500.4050, L503.6030, L100.0100, L503.0106 #### [facility] [address] [place], [address] GFR/1.73 sq M.predicted among non-blacks MDRD (S/P/Bld) [Vol rate/Area] 123 mL/min/{1.73_m2} Normal >60 [facility] Comment on above: Result Comment: mL/m in/1.73m2 CKD-EPI Creatinine Equation (2020) Performed By: #### L 501.9985, L503.6550, L500.4050, L503.6030, L100.0100, L503.0106 #### [facility] [address] [place], [address] Globulin (S) [Mass/Vol] 2.5 g/dL Normal 2.2-4.2 [facility] Comment on above: Performed By: #### L 501.9985, L503.6550, L500.4050, L503.6030, L100.0100, L503.0106 #### [facility] [address] [place], [address] Glucose [Mass/Vol] 92 mg/dL Normal 70-99 [facility] Comment on above: Performed By: #### L 501.9985, L503.6550, L500.4050, L503.6030, L100.0100, L503.0106 #### [facility] [address] [place], [address] Potassium [Moles/Vol] 3.9 mmol/L Normal 3.3-5.1 [facility] Comment on above: Performed By: #### L 501.9985, L503.6550, L500.4050, L503.6030, L100.0100, L503.0106 #### [facility] [address] [place], [address] Sodium [Moles/Vol] 137 mmol/L Normal 133-145 [facility] Comment on above: Performed By: #### L 501.9985, L503.6550, L500.4050, L503.6030, L100.0100, L503.0106 #### [facility] [address] [place], [address] T PROT 6.7 g/dL Normal 5.9-8.4 [facility] Comment on above: Performed By: #### L 501.9985, L503.6550, L500.4050, L503.6030, L100.0100, L503.0106 #### [facility] [address] [place], [address] Urea nitrogen [Mass/Vol] 15 mg/dL Normal 4-19 [facility] Comment on above: Performed By: #### L 501.9985, L503.6550, L500.4050, L503.6030, L100.0100, L503.0106 #### [facility] [address] [place], [address] Eosinophil percentageOrdered By: Falguni Shanks on 08-27-2024 Eosinophils/100 WBC (Bld) 2.0 % 0-5 [facility] Erythrocyte distribution wid th ratioOrdered By: Falguni Shanks on 08-27-2024 Erythrocyte distribution width (RBC) [Ratio] 12.2 % 11.6-14.6 [facility] Erythrocyte distribution wid th standard deviationOrdered By: Falgunidona Shanks on 08-27-2024 Erythrocyte distribution width (RBC) [Ratio] 41.9 fl 35.1-43.9 [facility] Ferritinon 08-27-2024 Ferritin [Mass/Vol] 70 ng/mL Normal 22-378 [facility] Comment on above: Performed By: #### L 501.9985, L503.6550, L500.4050, L503.6030, L100.0100, L503.0106 #### [facility] [address] [place], [address] Glomerular filtration rate ( GFR) estimation/1.73 sq m using serum, plasma, or whole bOrdered By: Falguni Shanks on 08-27-2024 GFR/1.73 sq M.predicted among non-blacks MDRD (S/P/Bld) [Vol rate/Area] 123 mL/min/{1.73_m2} >60 [facility] Comment on above: mL/min/1.73m2 CKD-EP I Creatinine Equation (2020) Hematocrit Auto (Bld) [Volum e fraction]Ordered By: Falguni Shanks on 08-27-2024 Hematocrit (Bld) [Volume fraction] 38.2 % 37-47 [facility] Hemoglobin A1con 08-27-2024 HbA1c (Bld) [Mass fraction] 4.7 % Normal <=5.6 [facility] Comment on above: Result Comment: Norm al < 5.7 % Prediabetic 5.7 - 6.4 % Diabetic >or= 6.5 % Please note range changes. Performed By: #### L 501.9985, L503.6550, L500.4050, L503.6030, L100.0100, L503.0106 #### [facility] [address] [place], [place], [address] Hemoglobin A1c percentageOrd ered By: Falguni Shanks on 08-27-2024 HbA1c (Bld) [Mass fraction] 4.7 % <5.7 [facility] Comment on above: Normal < 5.7 % Predi abetic 5.7 - 6.4 % Diabetic >or= 6.5 % Please note range changes. Hemoglobin measurementOrdere d By: Falguni Shanks on 08-27-2024 Hemoglobin (Bld) [Mass/Vol] 13.0 g/dL 12.0-15.0 [facility] Immature granulocytes/100 WB C Auto (Bld)Ordered By: Falguni Shanks on 08-27-2024 Immature granulocytes/100 WBC (Bld) 0.300 % 0.0-0.9 [facility] Comment on above: IG% - Immature Granu locytes (promyelocytes, myelocytes and metamyelocytes) > 1% indicates that a LEFT SHIFT is Present. Iron measurement (mass/mass) Ordered By: Falguni Shanks on 08-27-2024 Iron (Unsp spec) [Mass/Mass] 89 ug/dL 50-170 [facility] Iron+Iron Binding Capacityon 08-27-2024 TIBC 224 ug/dL Low 250-450 [facility] Comment on above: Performed By: #### L 501.9985, L503.6552, L500.4050, L503.6030, L100.0100, L503.0106 #### [facility] [address] [place], [address] Laboratory - Chemistry and C hemistry - challengeOrdered By: Falguni Shanks on 08-27-2024 AST [Catalytic activity/Vol] 18 U/L <32 [facility] MCV (mean corpuscular volume ) determinationOrdered By: Falguni Shanks on 08-27-2024 MCV (RBC) [Entitic vol] 93.6 fL 81-99 [facility] Mean corpuscular hemoglobin (MCH) determinationOrdered By: Falguni Shanks on 08-27-2024 MCH (RBC) [Entitic mass] 31.9 pg 27.0-32.0 [facility] Mean corpuscular hemoglobin concentration (MCHC) determinationOrdered By: Falguni Shanks on 08-27-2024 MCHC (RBC) [Mass/Vol] 34.0 g/dL 32-36 [facility] Mean platelet volume determi nationOrdered By: Falguni Shanks on 08-27-2024 Platelet mean volume (Bld) [Entitic vol] 9.3 fL 6.2-12.0 [facility] Monocyte percentageOrdered B y: Falguni Shanks on 08-27-2024 Monocytes/100 WBC (Bld) 6.4 % 0-10 [facility] Neutrophil percentageOrdered By: Falguni Shanks on 08-27-2024 Neutrophils/100 WBC (Bld) 57.1 % 47-70 [facility] No Panel InformationOrdered By: Falguni Shanks on 08-27-2024 Unsaturated Iron Binding Capacity 135 ug/dL Low 228-428 [facility] Nucleated red blood cell per centageOrdered By: Falguni Shanks on 08-27-2024 Nucleated RBC/100 WBC (Bld) [Ratio] 0 % 0-5 [facility] Platelet countOrdered By: Evelin Shanks on 08-27-2024 Platelets (Bld) [#/Vol] 297 10*3/uL 150-450 [facility] Potassium measurement (mass/ volume)Ordered By: Falguni Shanks on 08-27-2024 Potassium (Unsp spec) [Mass/Vol] 3.9 mmol/L 3.3-5.1 [facility] RBC Auto (Bld) [#/Vol]Ordere d By: Falguni Shanks on 08-27-2024 RBC (Bld) [#/Vol] 4.08 10*6/uL Low 4.2-5.4 [facility] Serum creatinine measurement (mass/volume)Ordered By: Falguni Shanks on 08-27-2024 Creatinine [Mass/Vol] 0.56 mg/dL Low 0.70-1.20 [facility] Serum globulin measurementOr dered By: Falguni Shanks on 08-27-2024 Globulin (S) [Mass/Vol] 2.5 g/dL 2.2-4.2 [facility] Serum glucose measurement (m ass/volume)Ordered By: Falguni Shanks on 08-27-2024 Glucose [Mass/Vol] 92 mg/dL 70-99 [facility] Serum or plasma alanine rebollar otransferase (ALT) measurementOrdered By: Falguni Shanks 08-27-2024 ALT [Catalytic activity/Vol] 14 U/L <35 [facility] Serum or plasma albumin ronni urement (mass/volume)Ordered By: Falguni Shanks 08-27-2024 Albumin [Mass/Vol] 4.1 g/dL 3.5-5.0 [facility] Serum or plasma albumin/glob ulin mass ratioOrdered By: Falguni Shanks 08-27-2024 Albumin/Globulin [Mass ratio] 1.6 {ratio} 0.9-2.4 [facility] Serum or plasma alkaline marcelo sphatase measurementOrdered By: Falguni Shanks 08-27-2024 ALP [Catalytic activity/Vol] 53 U/L 35-104 [facility] Serum or plasma calcium ronni urement (mass/volume)Ordered By: Falguni Shanks 08-27-2024 Calcium [Mass/Vol] 9.4 mg/dL 7.6-11.0 [facility] Serum or plasma ferritin negra surement (mass/volume)Ordered By: Falguni Shanks on 08-27-2024 Ferritin [Mass/Vol] 70 ng/mL 22-378 [facility] Serum or plasma iron saturat ion measurement (mass fraction)Ordered By: Falguni Shanks on 08-27-2024 Iron saturation [Mass fraction] 39.7 % 13-59 [facility] Comment on above: Previous reported re sult: 40.0 %Edited by: SARA on 08/27/24:1527 AMENDED REPORT 08/27/24 1527 IRON SATURATION previously reported as: 40.0 % Serum or plasma urea nitroge n measurement (mass/volume)Ordered By: Falguni Shanks on 08-27-2024 Urea nitrogen [Mass/Vol] 15 mg/dL 4-19 [facility] Sodium levelOrdered By: Ivan Shanks on 08-27-2024 Sodium [Moles/Vol] 137 mmol/L 133-145 [facility] Total proteinOrdered By: Luis Shanks on 08-27-2024 Protein [Mass/Vol] 6.7 g/dL 5.9-8.4 [facility] Vitamin B12on 08-27-2024 Cobalamin (Vitamin B12) [Mass/Vol] 3557 pg/mL High 180-914 [facility] Comment on above: Performed By: #### L 501.9985, L503.6550, L500.4050, L503.6030, L100.0100, L503.0106 #### [facility] [place], [address] Vitamin B12 ser/plasOrdered By: Falguni Shanks on 08-27-2024 Cobalamin (Vitamin B12) [Mass/Vol] 3557 pg/mL High 180-914 [facility] White blood cell (WBC) count Ordered By: Falguni Shanks on 08-27-2024 WBC (Bld) [#/Vol] 7.2 10*3/uL 4.4-11.0 [facility] OPERATIVE PROCEDURESon 07-08 OPERATIVE PROCEDURES [facility] OPERATIVE REPORT NAME ACCOUNT SEX AGE ADMIT DISCHARGE PT MED. RECORD# NUMBER DATE DATE TYPE ZACK JAMESON [id number] F 33 06/26/24 2 L 65566 ROOM: [facility] DATE OF : 1990 DICTATING PHYSICIAN: Preeti Avina DATE OF SURGERY: June 26, 2024 SURGEON: Preeti Avina MD COTTON PROGRAM TECHNICIAN: Sanchez Jerome CSA ANESTHESIOLOGIST: Stewart Hayes CRNA [...] Preeti Avina MD 06/26/24 08:29 JOB #: [id number] Transcribed By: geoffrey 06/26/24 08:49 Electronically signed by: E-SIGN DR. AVINA 07/08/24 12:25 Page 2 of 2 ZACK JAMESON Operative Report Normal [facility] Final Surgical Pathology Rep [facility] 06-28-2024 Final Surgical Pathology Report . Pathology Reports Accession: Collected Date/Time: Received Date/Time: Pathologist: [id number] 06/26/2024 07:50 EDT 06/27/2024 10:23 EDT MD FERN BAUER Final Surgical Pathology Report DIAGNOSIS: SOFT TISSUE, BACK, EXCISION: - LIPOMA COMMENT: [facility] [id number] CLINICAL INFORMATION: BENIGN NEOPLASM OF SOFT TISSUE OF BACK SPECIMEN: A SOFT TISSUE, BACK GROSS DESCRIPTION: All parts labelled with patient name and [id number] Received in formalin labelled back soft tissue Is a yellow smooth portion of adipose tissue measuring 4.7 x 4 x 1.5 cm. Tissue is sectioned to reveal yellow, glistening, homogeneous cut surfaces with no areas of hemorrhage or necrosis identified. RS-1 Jersey Wade, Pathologists' Venetian Blind Installer (ASCP) Performed by JERSEY WADE MICROSCOPIC DESCRIPTION: The microscopic examination is performed, except in the case of Gross Only. Verified by Pathology Report verified by [facility] FERN BAUER MD Sign out Date: 06/28/2024 14:04 Performing Lab: [facility], [address] [place] [address] Pathology Dept Disclaimer If ancillary studies were utilized, the following Laboratory Developed Test (LDT) disclaimer will apply: Under CLIA requirements, [facility] is qualified to perform high complexity testing. For all ancillary stains, positive and negative controls stain appropriately. Performance characteristics of immunohistochemical and chromogenic in-situ hybridization tests have been determined by [facility]. These tests are used for clinical purposes, They should not be regarded as investigational or for research. . Normal [facility] SERUM QUALon 06-26 EXTERNAL QC DONE? YES Normal [facility] Comment on above: Performed By: #### 2 07467 #### [facility],[address] [place] [address] INTERNAL QC PASS Normal [facility] Comment on above: Performed By: #### 2 06255 #### [facility],[address] [place], [place] [id number] SER Negative Normal NEGATIVE [facility] Comment on above: Performed By: #### 2 22668 #### [facility],[address] [place] [address] [employer] Seat [employer]pholste[employer] Cytology Reporton 2024 [employer] Se[employer]olsterer Cytology Report . Pathology Reports Accession: Collected Date/Time: Received Date/Time: Pathologist: [id number] 05/10/2024 12:53 EST 05/10/2024 18:00 EST [employer] Se[employer] U[employer]olste[employer] Cytology Report SPECIMEN: Specimen Description: Liquid Prep w/ HPV Specimen: Cervical/Endocervical Screening or Diagnostic: Screening RELEVANT HISTORY: LMP: 04/10/24 [id number] SPECIMEN ADEQUACY: SATISFACTORY FOR EVALUATION Endocervical/Transformation al [...] and evaluated with the assistance of the ipsy ThinPrep Test Imaging System. Pathology Reports Accession: Collected Date/Time: Received Date/Time: Pathologist: [id number] 05/10/2024 12:53 EST 05/10/2024 18:00 EST Verified by Pathology report verified by [facility] Screened by: [place] Electronically signed by Christina GONZALEZ (ASCP) Sign-Out Date: 05/16/2024 11:25 Performing Lab: [facility], [address] [place] [address] Pathology Dept Disclaimer The Pap test is a screening test for cervical cancer. As evidenced by published data, it is subject to both inherent false negative and false positive results. Your patient's results should be interpreted in context with pertinent clinical history including gynecological examination. Normal [facility] HPVon 05-15-2024 HPV Interp Normal See Interp HPVN [facility] Comment on above: Order Comment: Order placed by AP_HPV_ORDER rule from [id number] Result Comment: High Risk HPV Typing: NEGATIVE [...] HPVN Performed By: #### H PV #### [place] [address] HPV Source Cervix Normal [facility] Comment on above: Order Comment: Order placed by AP_HPV_ORDER rule from [id number] Performed By: #### H #### [place] [address] VAGINAL PATHOGEN DNA DIRECT PROBES[JUSTEN]on 05-14-2024 VAGINAL PATHOGEN DNA DIRECT PROBES[JUSTEN] Normal [facility] Comment on above: Result Comment: _VAG INAL PATHOGENS DNA DIRECT PROBES [CCL]_ SEE SEPARATE REPORT Performed By: #### 2 61447 #### [address] [address] GC/CHLAM AMPLIFICATION [CCL] on 05-11-2024 SEND TO IC? NO Normal [facility] Comment on above: Performed By: #### 2 58416 #### [facility],[address] [place] [address] Chlamydia trachomatis RNA Not detected Normal Not detected [facility] Comment on above: Result Comment: This FDA-approved assay has been modified to accept rectal swabs self-collected in a healthcare setting. For self-collected rectal swabs, the test was developed and its performance characteristics determined by the [facility] [place] [facility] It has not been cleared or approved by the FDA. -[facility] is regulated under CLIA as qualified to perform high-complexity testing. This test is used for clinical purposes. It should not be regarded as investigational or for research. SOURCE: [place] [address] [place] [address] Nickolas Rodriguez III, M.D. [id number] Performed By: #### 2 96128 #### [facility],[address] [place] [address] Neisseria gonorrhoeae RNA Not detected Normal Not detected [facility] Comment on above: Performed By: #### 2 41814 #### [address] [address] VITAMIN B1, WHOLE BLOOD [CCL ]on 12-27-2023 Vitamin B1 (TDP), WholeBlood 174.8 nmol/L Normal 84.3-213.3 [facility] Comment on above: Result Comment: This assay measures the concentration of thiamine diphosphate (TDP), the primary active form of vitamin B1. Approximately 90 percent of vitamin B1 present in whole blood is TDP. Thiamine and thiamine monophosphate, which comprise the remaining 10 percent, are not measured. This test was developed and its performance characteristics determined by [facility] Laboratory Medicine [place] ([facility]). It has not been cleared or approved by the FDA. [facility] is regulated under CLIA as qualified to perform high-complexity testing. This test is used for clinical purposes. It should not be regarded as investigational or for research. [address] [address] Nickolas Rodriguez III, M.D. [id number] Performed By: #### 2 21022 #### [address] [address] VITAMIN B6 [CCL]on 4 Vitamin B6 Plasma 50.1 nmol/L Normal 20.0-125.0 [facility] Comment on above: Result Comment: INTE RPRETIVE INFORMATION: Vitamin B6 (Pyridoxal 5-Phosphate) Pyridoxal 5'-phosphate measured in a specimen collected following an 8-hour or overnight fast accurately indicates vitamin B6 nutritional status. Non-fasting specimen concentration reflects recent vitamin intake. This test was developed and its performance characteristics determined by [facility]. It has not been cleared or approved by the [place] Food and Drug Administration. This test was performed in a CLIA certified laboratory and is intended for clinical purposes. Performed By: [facility] [address] [place] [id number] Cracker Off: Dennis Robles MD, PhD CLIA Number: [id number] [address] [address] Nickolas Rodriguez III, M.D. [id number] Performed By: #### 2 02226 #### [address] [address] CBC + DIFFon 12-19-2023 ANISO 1+ Normal [facility] Comment on above: Performed By: #### 2 90317 #### [facility],[address] [place] [address] Baso # 0.03 x10EE3/UL Normal 0.00 - 0.10 [facility] Comment on above: Performed By: #### 2 76807 #### [facility],[address] [place] [address] Basophils/100 WBC (Bld) 0.5 % Normal 0.0 - 2.0 [facility] Comment on above: Performed By: #### 2 05210 #### [facility],[address] [place] [address] Basophils/100 WBC (Bld) 1.0 % Normal 0.0 - 2.0 [facility] Comment on above: Performed By: #### 2 98236 #### [facility],[address] [place] [address] CBC + DIFF Normal [facility] Comment on above: Result Comment: CBC- COMPLETE BLOOD COUNT Performed By: #### 2 94104 #### [facility],[address] [place] [address]449 EO 2.0 % Normal 0.0 - 7.0 [facility] Comment on above: Performed By: #### 2 42715 #### [facility],[address] [place] [address]39 EO # 0.11 x10EE3/UL Normal 0.00 - 0.50 [facility] Comment on above: Performed By: #### 2 75159 #### [facility],[address] [place] [address] Eosinophils/100 WBC (Bld) 1.9 % Normal 0.0 - 7.0 [facility] Comment on above: Performed By: #### 2 56511 #### [facility],[address] [place] [address] Erythrocyte distribution width (RBC) [Ratio] 19.2 % High 12.0 - 15.6 [facility] Comment on above: Performed By: #### 2 68590 #### [place] [address] Hematocrit (Bld) [Volume fraction] 27.8 % Low 34.0 - 46.0 [facility] Comment on above: Performed By: #### 2 68448 #### [facility],[address] [place] [address] Hemoglobin (Bld) [Mass/Vol] 8.4 g/dL Low 12.0 - 16.0 [facility] Comment on above: Performed By: #### 2 55403 #### [place] [address] HYPOCHROM 1+ Normal [facility] Comment on above: Performed By: #### 2 13269 #### [place] [address] Lymph # 1.87 x10EE3/UL Normal 0.80 - 2.80 [facility] Comment on above: Performed By: #### 2 49712 #### [place] [address] Lymphocytes/100 WBC (Bld) 32.9 % Normal 20.0 - 45.0 [facility] Comment on above: Performed By: #### 2 41212 #### [place] [address] Lymphocytes/100 WBC (Bld) 35 % Normal 20 - 45 [facility] Comment on above: Performed By: #### 2 55184 #### [place] [address] MANUAL DIFF SEE BELOW Normal [facility] Comment on above: Performed By: #### 2 36537 #### [place] [address] MCH (RBC) [Entitic mass] 19 pg Low 27 - 33 [facility] Comment on above: Performed By: #### 2 00774 #### [facility],[address] [place] [address] MCHC 30 X10 3 Low 32 - 36 [facility] Comment on above: Performed By: #### 2 79167 #### [facility],[address] [place] [address]68 MCV (RBC) [Entitic vol] 64 fL Low 80 - 99 [facility] Comment on above: Performed By: #### 2 91809 #### [facility],[address] [place] [address] MICROCYTES 1+ Normal [facility] Comment on above: Performed By: #### 2 64569 #### [facility],[address] [place] [address] Cass # 0.38 x10EE3/UL Normal 0.20 - 1.00 [facility] Comment on above: Performed By: #### 2 96230 #### [facility],[address] [place] [address] MONOS 4 % Normal 0 - 10 [facility] Comment on above: Performed By: #### 2 97921 #### [facility],[address] [place] [address] MONOS % 6.6 % Normal 0.0 - 10.0 [facility] Comment on above: Performed By: #### 2 87435 #### [facility],[address] [place] [address] Morphology Rodney (Bld) [Interp] SEE BELOW Normal [facility] Comment on above: Performed By: #### 2 95319 #### [facility],[address] [place] [address] Neut # 3.30 x10EE3/UL Normal 1.50 - 7.10 [facility] Comment on above: Performed By: #### 2 27878 #### [facility],[address] [place] [address] Neutrophils/100 WBC (Bld) 58.1 % Normal 46.0 - 76.0 [facility] Comment on above: Performed By: #### 2 91056 #### [facility],[address] [place] [address]697 PLATELET 439 x10EE3/UL Normal 150 - 450 [facility] Comment on above: Performed By: #### 2 89664 #### [facility],[address] [place] [address] Platelet mean volume (Bld) [Entitic vol] 8.3 fL Normal 6.6 - 10.5 [facility] Comment on above: Result Comment: AUTO MATED DIFFERENTIAL Performed By: #### 2 24997 #### [facility],[address] [place] [address] 28899 PLT EST NORMAL Normal [facility] Comment on above: Performed By: #### 2 34226 #### [facility],[address] [place] [address] 21965 RBC 4.38 x 10EE6/UL Normal 4.10 - 5.30 [facility] Comment on above: Performed By: #### 2 00593 #### [facility],[address] [place] [address] SEGS 58 % Normal 46 - 76 [facility] Comment on above: Performed By: #### 2 30832 #### [facility],[address] [place] [address] 43101 WBC 5.7 x 10EE3/UL Normal 4.5 - 10.8 [facility] Comment on above: Performed By: #### 2 53589 #### [facility],[address] [place] [address] Other RARE GIANT PLATELET Normal [facility] Comment on above: Result Comment: FEW LARGE PLATELETS Performed By: #### 2 65012 #### [facility],[address] [place] [address] CMP with eGFRon 12-19-2023 AGE 33 years Normal [facility] Comment on above: Performed By: #### 2 84996 #### [facility],[address] [place], [place] [address] Albumin [Mass/Vol] 3.3 g/dL Low 3.4 - 5.0 [facility] Comment on above: Performed By: #### 2 90383 #### [facility],[address] [place] [address] Albumin/Globulin [Mass ratio] 1.0 {ratio} Normal 0.9 - 1.6 [facility] Comment on above: Performed By: #### 2 33671 #### [facility],[address] [place] [address] 13469 ALK PHOS 64 U/L Normal 46 - 116 [facility] Comment on above: Performed By: #### 2 58042 #### [facility],[address] [place], [place] [address] ALT [Catalytic activity/Vol] 13 U/L Low 16 - 63 [facility] Comment on above: Performed By: #### 2 73622 #### [facility],[address] [place] [address] 10453 Anion gap [Moles/Vol] 10 mmol/L Normal 10 - 20 [facility] Comment on above: Performed By: #### 2 66742 #### [facility],[address] [place] [address] AST [Catalytic activity/Vol] 13 U/L Normal 13 - 39 [facility] Comment on above: Performed By: #### 2 71640 #### [facility],[address] [place] [address]5565 B/C RATIO 14 ratio Normal 0 - 30 [facility] Comment on above: Performed By: #### 2 40449 #### [facility],[address] [place] [address] Bilirubin [Mass/Vol] 0.5 mg/dL Normal 0.2 - 1.0 [facility] Comment on above: Performed By: #### 2 01524 #### [facility],[address] [place] [address] Calcium [Mass/Vol] 8.8 mg/dL Normal 8.5 - 10.1 [facility] Comment on above: Performed By: #### 2 12359 #### [facility],[address] [place] [address]226 Chloride [Moles/Vol] 103 mmol/L Normal 98 - 107 [facility] Comment on above: Performed By: #### 2 09330 #### [facility],[address] [place], [place] [address] CMP with eGFR Normal [facility] Comment on above: Result Comment: COMP REHENSIVE METABOLIC PANEL Performed By: #### 2 58908 #### [facility],[address] [place] [address] CO2 [Moles/Vol] 29.0 mmol/L Normal 21.0 - 32.0 [facility] Comment on above: Performed By: #### 2 25266 #### [facility],[address] [place] [address] Creatinine [Mass/Vol] 0.58 mg/dL Normal 0.55 - 1.02 [facility] Comment on above: Performed By: #### 2 30349 #### [facility],[address] [place] [address]87[address] GFR/1.73 sq M.predicted among non-blacks MDRD (S/P/Bld) [Vol rate/Area] mL/min/{1.73_m2} Normal 60 - 999 [facility] Comment on above: Performed By: #### 2 14425 #### [facility],[address] [place] [address] Result Comment: ACCO RDING TO THE NATIONAL KIDNEY DISEASE EDUCATION PROGRAM(NKDE), A NORMAL eGFR IS A VALUE GREATER THAN OR EQUAL TO 60 ML/MIN/1.73 SQ METERS. CHRONIC KIDNEY DISEASE: <60mL/MIN/1.73 SQ METERS KIDNEY FAILURE: <15mL/MIN/1.73 SQ METERS THIS TEST SHOULD ONLY BE USED FOR PATIENTS 18 YEARS OF AGE AND OLDER. Globulin (S) [Mass/Vol] 3.4 g/dL Normal 1.5 - 3.8 [facility] Comment on above: Performed By: #### 2 19449 #### [facility],[address] [place] [address] Glucose [Mass/Vol] 85 mg/dL Normal 74 - 106 [facility] Comment on above: Performed By: #### 2 09345 #### [facility],[address] [place] [address] Potassium [Moles/Vol] 4.4 mmol/L Normal 3.5 - 5.1 [facility] Comment on above: Performed By: #### 2 83008 #### [facility],[address] [place] [address] 58636 Protein [Mass/Vol] 6.7 g/dL Normal 6.4 - 8.2 [facility] Comment on above: Performed By: #### 2 44071 #### [facility],[address] [place] [address]889 Sodium [Moles/Vol] 138 mmol/L Normal 136 - 145 [facility] Comment on above: Performed By: #### 2 18307 #### [facility],[address] [place] [address] 15683 Urea nitrogen [Mass/Vol] 8 mg/dL Normal 7 - 18 [facility] Comment on above: Performed By: #### 2 11579 #### [facility],[address] [place] [address] FERRITINon 12-19-2023 Ferritin [Mass/Vol] 6 ng/mL Low 8 - 388 [facility] Comment on above: Performed By: #### 2 69730 #### [facility],[address] [place], [place] [address] HIP BILAT 2+ VIEWS W/AP PELV Walker 12-19-2023 HIP BILAT 2+ VIEWS W/AP PELVIS [address] [address] Patient: ZACK JAMESON Phone#: : 1990 Age: 33 Gender: F Pt. Type: Out Account: [id number] Location: [facility] Ordering: NAYE RHODES Exam Date: 12/19/2023/11:27 Family Phys: Charge Code: [id number] Physician: Love Order #: [id number] Dose#: PROCEDURE: X-RAY HIP BILAT MIN 2 [...] Argueta MD on 12/19/2023 at 12:32 Normal [facility] IRON AND TIBCon 12-19-2023 %SATURATION 3 % Normal [facility] Comment on above: Performed By: #### 2 74397 #### [facility],[address] [place], [place] [address] Iron [Mass/Vol] 13 ug/dL Low 50 - 170 [facility] Comment on above: Performed By: #### 2 56445 #### [facility],[address] [place], [place] [address] TIBC 427 ug/dl Normal 250 - 450 [facility] Comment on above: Performed By: #### 2 44613 #### [facility],[address] [place] [address] 21184 UIBC 414 ug/dL High 155 - 355 [facility] Comment on above: Performed By: #### 2 45041 #### [address] [address] T4-FREE (FREE THYROXINE)on 0 12-19-2023 Free T4 [Mass/Vol] 0.69 ng/dL Low 0.76 - 1.46 [facility] Comment on above: Result Comment: P otential of falsely elevated results when biotin concentrations are > 10 ng/mL. Performed By: #### 2 89842 #### [address] [address] TSHon 12-19-2023 TSH Qn 0.83 m[IU]/L Normal 0.35 - 3.74 [facility] Comment on above: Performed By: #### 2 32228 #### [address] [address] VITAMIN B-12on 12-19-2023 Cobalamin (Vitamin B12) [Mass/Vol] 618 pg/mL Normal 193 - 986 [facility] Comment on above: Performed By: #### 2 03560 #### [address] [address] VITAMIN D, 25 HYDROXYon VitD 43.50 ng/mL Normal 30.00 - 100 [facility] Comment on above: Result Comment: 25-O [...] D2 Not Established Performed By: #### 2 85969 #### [address] [address] COMPLETE BLOOD COUNTon 09-19 Erythrocyte distribution width (RBC) [Ratio] 23.1 % High 11.5-15.0 [facility] Comment on above: Performed By: #### C СВЕТЛАНА MERCADO THYR #### [facility] ([id number]) [address], [address] [place] [address] Hematocrit (Bld) [Volume fraction] 27.4 % Low 35-47 [facility] Comment on above: Performed By: #### C СВЕТЛАНА MERCADO, THYR #### [facility] ([id number]) [address], [address] [place] [address] Hemoglobin (Bld) [Mass/Vol] 8.5 g/dL Low 11.7-15.5 [facility] Comment on above: Performed By: #### C СВЕТЛАНА MERCADO THYR #### [facility] ([id number]) [address], [address] [place] [address] MCH (RBC) [Entitic mass] 18.9 pg Low 27-34 [facility] Comment on above: Performed By: #### C СВЕТЛАНА MERCADO THYR #### [facility] ([id number]) [address], [address] [place] [address] MCHC (RBC) [Mass/Vol] 31.0 g/dL Low 32-36 [facility] Comment on above: Performed By: #### Jeb MERCADO FEPWally, THYR #### [facility] ([id number]) [address], [address] [place] [address] MCV (RBC) [Entitic vol] 61 fL Low 80-100 [facility] Comment on above: Performed By: #### Jeb MERCADO FEPWally, THYR #### [facility] ([id number]) [address], [address] [place] [address] Platelet mean volume (Bld) [Entitic vol] 8.6 fL Normal 7-12 [facility] Comment on above: Performed By: #### C BC, FEPR, THYR #### [facility] ([id number]) [address] [place] [address] Platelets (Bld) [#/Vol] 334 10*3/uL Normal 150-450 [facility] Comment on above: Performed By: #### C BC, FEPR, THYR #### [facility] ([id number]) [address], [address] [place] [address] RBC COUNT 4.49 X10E12/L Normal 3.80-5.20 [facility] Comment on above: Performed By: #### C BC, FEPR, THYR #### [facility] ([id number]) [address], [address] [place] [address] WBC (Bld) [#/Vol] 7.0 10*3/uL Normal 4.0-11.0 [facility] Comment on above: Performed By: #### C BC, FEPR, THYR #### [facility] ([id number]) [address], [address] [place] [address] IRON PROFILEon 09-20-2023 Iron [Mass/Vol] 19 ug/dL Low 50-170 [facility] Comment on above: Performed By: #### C BC, FEPR, THYR #### [facility] ([id number]) [address], [address] [place] [address] IRON BINDING 501 ug/dL High 250-425 [facility] Comment on above: Performed By: #### C BC, FEPR, THYR #### [facility] ([id number]) [address], [address] [place] [address] IRON SATURATION 4 % SATURATION Low 15-50 [facility] Comment on above: Performed By: #### C BC, FEPR, THYR #### [facility] ([id number]) [address], [address] [place] [address] THYROID PROFILEon 09-20-2023 Free T4 [Mass/Vol] 0.89 ng/dL Normal 0.61-1.60 [facility] Comment on above: Performed By: #### C BC, FEPR, THYR #### [facility] ([id number]) [address], [address] [place] [address] TSH 2.07 uIU/mL Normal 0.49-4.67 [facility] Comment on above: Performed By: #### C BC, FEPR, THYR #### [facility] ([id number]) [address], [address] [place] [address] Hemoglobin A1Con 08-23-2023 Glucose [Mass/Vol] 103 mg/dL Normal [facility] Comment on above: Result Comment: The ADA and AACC recommend providing the estimated average glucose result to permit better patient understanding of their HBA1c result. Performed By: #### L IPR #### [facility] [address] [place] [address] Biological Engineer: Markie Allen DO #### GLYHGB #### [address] [address] Biological Engineer: Ladarius Andres MD HbA1c (Bld) [Mass fraction] 5.2 % Normal 4.0-6.0 [facility] Comment on above: Performed By: #### L IPR #### [facility] [address] [place] [address] Biological Engineer: Markie Allen DO #### GLYHGB #### [address] [address] Biological Engineer: Ladarius Andres MD Lipid Profileon 08-23-2023 Cholesterol [Mass/Vol] 104 mg/dL Normal <200 [facility] Comment on above: Result Comment: Cholesterol Guidelines: <200 Desirable 200-240 Borderline >240 Undesirable Performed By: #### L IPR #### [facility] [address] [place] [address] Biological Engineer: Markie Allen DO #### GLYHGB #### [address] [address] Biological Engineer: Ladarius Andres MD Cholesterol in HDL [Mass/Vol] 44 mg/dL Normal >40 [facility] Comment on above: Result Comment: HDL Guidelines: <40 Undesirable 40-59 Borderline >59 Desirable Performed By: #### L IPR #### [facility] [address] [place] [address] Biological Engineer: Markie Allen DO #### GLYHGB #### [address] [address] Biological Engineer: Ladarius Andres MD Cholesterol in LDL [Mass/Vol] 50 mg/dL Normal 0-130 [facility] Comment on above: Result Comment: LDL Guidelines: <100 Desirable 100-129 Near to/above Desirable 130-159 Borderline >159 Undesirable Direct (measured) LDL and calculated LDL are not interchangeable tests. Performed By: #### L IPR #### [facility] [address] [place] [address] Biological Engineer: Markie Allen DO #### GLYHGB #### [address] [address] Biological Engineer: Ladarius Andres MD Cholesterol.total/Chol esterol in HDL [Mass ratio] 2.4 {ratio} Normal <5 [facility] Comment on above: Performed By: #### L IPR #### [facility] [address] [place] [address] Biological Engineer: Markie Allen DO #### GLYHGB #### [facility] [address] [place] [address] Biological Engineer: Ladarius Andres MD Triglyceride [Mass/Vol] 50 mg/dL Normal <150 [facility] Comment on above: Result Comment: Triglyceride Guidelines: <150 Desirable 150-199 Borderline 200-499 High >499 Very high Based on AHA Guidelines for fasting triglyceride, January 2012. Performed By: #### L IPR #### [facility] [address] [place] [address] Biological Engineer: Markie Allen DO #### GLYHGB #### [facility] [address] [place] [address] Biological Engineer: Ladarius Andres MD Basic Metabolic Profon 08-20 Anion gap [Moles/Vol] 11 mmol/L Normal 9-17 [facility] Comment on above: Performed By: #### H CG, LIVP, CDP, EDTOX, BMP #### [facility] [address] [place] [address] Biological Engineer: Ladarius Andres MD BUN/CRE Ratio 13 Normal 9-20 [facility] Comment on above: Performed By: #### H CG, LIVP, CDP, EDTOX, BMP #### [facility] [address] [place] [address] Biological Engineer: Ladarius Andres MD Calcium [Mass/Vol] 8.7 mg/dL Normal 8.6-10.4 [facility] Comment on above: Performed By: #### H CG, LIVP, CDP, EDTOX, BMP #### [facility] [address] [place] [address] Biological Engineer: Ladarius Andres MD Chloride [Moles/Vol] 107 mmol/L Normal 98-107 [facility] Comment on above: Performed By: #### H CG, LIVP, CDP, EDTOX, BMP #### [facility] [address] [place] [address] Biological Engineer: Ladarius Andres MD CO2 [Moles/Vol] 23 mmol/L Normal 20-31 [facility] Comment on above: Performed By: #### H CG, LIVP, CDP, EDTOX, BMP #### [facility] [address] [place] [address] Biological Engineer: Ladarius Andres MD Creatinine [Mass/Vol] 0.6 mg/dL Normal 0.5-0.9 [facility] Comment on above: Performed By: #### H CG, LIVP, CDP, EDTOX, BMP #### [facility] [address] [place] [address] Biological Engineer: Ladarius Andres MD GFR/1.73 sq M.predicted among non-blacks MDRD (S/P/Bld) [Vol rate/Area] mL/min/{1.73_m2} Normal >60 [facility] Comment on above: Result Comment: These [...] H CG, LIVP, CDP, EDTOX, BMP #### [facility] [address] [place] [address] Biological Engineer: Ladarius Andres MD Glucose [Mass/Vol] 98 mg/dL Normal 70-99 [facility] Comment on above: Performed By: #### H CG, LIVP, CDP, EDTOX, BMP #### [facility] [address] [place] [address] Biological Engineer: Ladarius Andres MD Potassium [Moles/Vol] 3.7 mmol/L Normal 3.7-5.3 [facility] Comment on above: Performed By: #### H CG, LIVP, CDP, EDTOX, BMP #### [facility] [address] [place] [address] Biological Engineer: Ladarius Andres MD Sodium [Moles/Vol] 141 mmol/L Normal 135-144 [facility] Comment on above: Performed By: #### H CG, LIVP, CDP, EDTOX, BMP #### [facility] [address] [place] [address] Biological Engineer: Ladarius Andres MD Urea nitrogen [Mass/Vol] 8 mg/dL Normal 6-20 [facility] Comment on above: Performed By: #### H CG, LIVP, CDP, EDTOX, BMP #### [facility] [address] [place] [address] Biological Engineer: Ladarius Andres MD CBC with Diffon 08-21-2023 Abs. Basophil 0.07 k/uL Normal 0.00-0.20 [facility] Comment on above: Performed By: #### H CG, LIVP, CDP, EDTOX, BMP #### [facility] [address] [place] [address] Biological Engineer: Ladarius Andres MD Abs.Imm.Granulocyte <0.03 Normal 0.00-0.30 [facility] Comment on above: Performed By: #### H CG, LIVP, CDP, EDTOX, BMP #### [facility] [address] [place] [address] Biological Engineer: Ladarius Andres MD Abs.Neutrophil (Seg) 3.02 k/uL Normal 1.50-8.10 [facility] Comment on above: Performed By: #### H CG, LIVP, CDP, EDTOX, BMP #### [facility] [address] [place] [address] Biological Engineer: Ladarius Andres MD Basophils/100 WBC (Bld) 1 % Normal 0-2 [facility] Comment on above: Performed By: #### H CG, LIVP, CDP, EDTOX, BMP #### [facility] [address] [place] [address] Biological Engineer: Ladarius Andres MD Eosinophils (Bld) [#/Vol] 0.16 10*3/uL Normal 0.00-0.44 [facility] Comment on above: Performed By: #### H CG, LIVP, CDP, EDTOX, BMP #### [facility] [address] [place] [address] Biological Engineer: Ladarius Andres MD Eosinophils/100 WBC (Bld) 3 % Normal 1-4 [facility] Comment on above: Performed By: #### H CG, LIVP, CDP, EDTOX, BMP #### [facility] [address] [place] [address] Biological Engineer: Ladarius Andres MD Erythrocyte distribution width (RBC) [Ratio] 20.1 % High 11.8-14.4 [facility] Comment on above: Performed By: #### H CG, LIVP, CDP, EDTOX, BMP #### [facility] [address] [place] [address] Biological Engineer: Ladarius Andres MD Hematocrit (Bld) [Volume fraction] 25.8 % Low 36.3-47.1 [facility] Comment on above: Performed By: #### H CG, LIVP, CDP, EDTOX, BMP #### [facility] [address] [place] [address] Biological Engineer: Ladarius Andres MD Hemoglobin (Bld) [Mass/Vol] 6.9 g/dL Critically low 11.9-15.1 [facility] Comment on above: Performed By: #### H CG, LIVP, CDP, EDTOX, BMP #### [facility] [address] [place] [address] Biological Engineer: Ladarius Andres MD Immature granulocytes/100 WBC (Bld) 0 % Normal 0 [facility] Comment on above: Performed By: #### H CG, LIVP, CDP, EDTOX, BMP #### [facility] [address] [place] [address] Biological Engineer: Ladarius Andres MD Lymphocytes (Bld) [#/Vol] 1.44 10*3/uL Normal 1.10-3.70 [facility] Comment on above: Performed By: #### H CG, LIVP, CDP, EDTOX, BMP #### [facility] [address] [place] [address] Biological Engineer: Ladarius Andres MD Lymphocytes/100 WBC (Bld) 28 % Normal 24-43 [facility] Comment on above: Performed By: #### H CG, LIVP, CDP, EDTOX, BMP #### [facility] [address] [place] [address] Biological Engineer: Ladarius Andres MD MCH (RBC) [Entitic mass] 17.1 pg Low 25.2-33.5 [facility] Comment on above: Performed By: #### H CG, LIVP, CDP, EDTOX, BMP #### [facility] [address] [place] [address] Biological Engineer: Ladarius Andres MD MCHC (RBC) [Mass/Vol] 26.7 g/dL Normal 25.2-33.5 [facility] Comment on above: Performed By: #### H CG, LIVP, CDP, EDTOX, BMP #### [facility] [address] [place] [address] Biological Engineer: Ladarius Andres MD MCV (RBC) [Entitic vol] 63.9 fL Low 82.6-102.9 [facility] Comment on above: Performed By: #### H CG, LIVP, CDP, EDTOX, BMP #### [facility] [address] [place] [address] Biological Engineer: Ladarius Andres MD Monocytes (Bld) [#/Vol] 0.45 10*3/uL Normal 0.10-1.20 [facility] Comment on above: Performed By: #### H CG, LIVP, CDP, EDTOX, BMP #### [facility] [address] [place] [address] Biological Engineer: Ladarius Andres MD Monocytes/100 WBC (Bld) 9 % Normal 3-12 [facility] Comment on above: Performed By: #### H CG, LIVP, CDP, EDTOX, BMP #### [facility] [address] [place] [address] Biological Engineer: Ladarius Andres MD Neutrophil (Seg) 59 % Normal 36-65 [facility] Comment on above: Performed By: #### H CG, LIVP, CDP, EDTOX, BMP #### [facility] [address] [place] [address] Biological Engineer: Ladarius Andres MD NRBC Automated 0.0 per 100 WBC Normal 0.0 [facility] Comment on above: Performed By: #### H CG, LIVP, CDP, EDTOX, BMP #### [facility] [address] [place] [address] Biological Engineer: Ladarius Andres MD Platelet mean volume (Bld) [Entitic vol] 9.5 fL Normal 8.1-13.5 [facility] Comment on above: Performed By: #### H CG, LIVP, CDP, EDTOX, BMP #### [facility] [address] [place] [address] Biological Engineer: Ladarius Andres MD Platelets (Bld) [#/Vol] 381 10*3/uL Normal 138-453 [facility] Comment on above: Performed By: #### H CG, LIVP, CDP, EDTOX, BMP #### [facility] [address] [place] [address] Biological Engineer: Ladarius Andres MD RBC (Bld) [#/Vol] 4.04 10*6/uL Normal 3.95-5.11 [facility] Comment on above: Performed By: #### H CG, LIVP, CDP, EDTOX, BMP #### [facility] [address] [place] [address] Biological Engineer: Ladarius Andres MD WBC (Bld) [#/Vol] 5.2 10*3/uL Normal 3.5-11.3 [facility] Comment on above: Performed By: #### H CG, LIVP, CDP, EDTOX, BMP #### [facility] [address] [place] [address] Biological Engineer: Ladarius Andres MD Drug Scr, Abuse, Uron 2023 Amphetamine(s),Ur Positive Abnormal NEG [facility] Comment on above: Result Comment: (Positive cutoff 1000 ng/mL) Performed By: #### U AX, UMICAO, STACY #### [facility] [address] [place] [address] Biological Engineer: Ladarius Andres MD Barbiturate(s),Ur Negative Normal NEG [facility] Comment on above: Result Comment: (Positive cutoff 200 ng/mL) Performed By: #### U AX, UMICAO, STACY #### [facility] [address] [place] [address] Biological Engineer: Ladarius Andres MD Benzodiazepine(s) Negative Normal NEG [facility] Comment on above: Result Comment: (Positive cutoff 200 ng/mL) Performed By: #### U AX, UMICAO, STACY #### [facility] [address] [place] [address] Biological Engineer: Ladarius Andres MD Cannabinoid(s),Ur Positive Abnormal NEG [facility] Comment on above: Result Comment: (Positive cutoff 50 ng/mL) Performed By: #### U AX, UMICAO, STACY #### [facility] [address] [place] [address] Biological Engineer: Ladarius Andres MD Cocaine Metabolite Negative Normal NEG [facility] Comment on above: Result Comment: (Positive cutoff 300 ng/mL) Performed By: #### U AX, UMICAO, STACY #### [facility] [address] [place] [address] Biological Engineer: Ladarius Andres MD Methadone Ql (U) Negative Normal NEG [facility] Comment on above: Result Comment: (Positive cutoff 300 ng/mL) Performed By: #### U AX, UMICAO, STACY #### [facility] [address] [place] [address] Biological Engineer: Ladarius Andres MD Opiate(s), Ur Negative Normal [facility] Comment on above: Result Comment: (Positive cutoff 300 ng/mL) Performed By: #### U AX, UMICAO, STACY #### [facility] [address] [place] [address] Biological Engineer: Ladarius Andres MD Oxycodone, Urine Negative Normal NEG [facility] Comment on above: Result Comment: (Positive cutoff 100 ng/mL) Performed By: #### U AX, UMICAO, STACY #### [facility] [address] [place] [address] Biological Engineer: Ladarius Andres MD Phencyclidine, Ur Negative Normal [facility] Comment on above: Result Comment: (Positive cutoff 25 ng/mL) Performed By: #### U AX, UMICAO, STACY #### [facility] [address] [place] [address] Biological Engineer: Ladarius Andres MD Fentanyl, Urine Negative Normal NEG [facility] Comment on above: Result Comment: (Positive cutoff 5 ng/ml) Performed By: #### U PILLO MURRY DAU #### [facility] [address] [place] [address] Biological Engineer: Ladarius Andres MD Interpretive Info Assay provides medic al screening only. The absence of expected drug(s) and/or Normal [facility] Comment on above: Result Comment: meta bolite(s) may indicate diluted or adulterated urine, limitations of testing or timing of collection. Testing for legal purposes should be confirmed by another method. To request confirmation of test result, please call the lab within 7 days of sample submission. Performed By: #### PILLO DUMONT DAU #### [facility] [address] [place] [address] Biological Engineer: Ladarius Andres MD HCG Screen, Bloodon 08-21-19 HCG Screen, Blood Negative Normal [facility] Comment on above: Result Comment: Spec [...] H CG, LIVP, CDP, EDTOX, BMP #### [facility] [address] [place] [address] Biological Engineer: Ladarius Andres MD Hgb/Hcton 08-21-2023 Hematocrit (Bld) [Volume fraction] 26.9 % Low 36.3-47.1 [facility] Comment on above: Performed By: #### H H #### [facility] [address] [place] [address] Biological Engineer: Ladarius Andres MD Hemoglobin (Bld) [Mass/Vol] 7.5 g/dL Low 11.9-15.1 [facility] Comment on above: Performed By: #### H H #### [facility] [address] [place] [address] Biological Engineer: Ladarius Andres MD Liver Profileon 08-21-2023 ALT [Catalytic activity/Vol] 8 U/L Normal 5-33 [facility] Comment on above: Performed By: #### H CG, LIVP, CDP, EDTOX, BMP #### [facility] [address] [place] [address] Biological Engineer: Ladarius Andres MD Albumin [Mass/Vol] 3.9 g/dL Normal 3.5-5.2 [facility] Comment on above: Performed By: #### H CG, LIVP, CDP, EDTOX, BMP #### [facility] [address] [place] [address] Biological Engineer: Ladarius Andres MD Albumin/Glob Ratio 1.4 Normal 1.0-2.5 [facility] Comment on above: Performed By: #### H CG, LIVP, CDP, EDTOX, BMP #### [facility] [address] [place] [address] Biological Engineer: Ladarius Andres MD Alkaline Phos 58 U/L Normal 35-104 [facility] Comment on above: Performed By: #### H CG, LIVP, CDP, EDTOX, BMP #### [facility] [address] [place] [address] Biological Engineer: Ladarius Andres MD AST [Catalytic activity/Vol] 14 U/L Normal <32 [facility] Comment on above: Performed By: #### H CG, LIVP, CDP, EDTOX, BMP #### [facility] [address] [place] [address] Biological Engineer: Ladarius Andres MD Bilirubin [Mass/Vol] 0.3 mg/dL Normal 0.3-1.2 [facility] Comment on above: Performed By: #### H CG, LIVP, CDP, EDTOX, BMP #### [facility] [address] [place] [address] Biological Engineer: Ladarius Andres MD Bilirubin, Indirect 0.2 mg/dL Normal 0.0-1.0 [facility] Comment on above: Performed By: #### H CG, LIVP, CDP, EDTOX, BMP #### [facility] [address] [place] [address] Biological Engineer: Ladarius Andres MD Bilirubin.indirect [Mass/Vol] 0.1 mg/dL Normal <0.3 [facility] Comment on above: Performed By: #### H CG, LIVP, CDP, EDTOX, BMP #### [facility] [address] [place] [address] Biological Engineer: Ladarius Andres MD Globulin (S) [Mass/Vol] 2.8 g/dL Normal 1.5-3.8 [facility] Comment on above: Performed By: #### H CG, LIVP, CDP, EDTOX, BMP #### [facility] [address] [place] [address] Biological Engineer: Ladarius Andres MD Protein [Mass/Vol] 6.7 g/dL Normal 6.4-8.3 [facility] Comment on above: Performed By: #### H CG, LIVP, CDP, EDTOX, BMP #### [facility] [address] [place] [address] Biological Engineer: Ladarius Andres MD Tox Scr, Bld, EDon 4 Acetaminophen [Mass/Vol] ug/mL Low 10-30 [facility] Comment on above: Performed By: #### H CG, LIVP, CDP, EDTOX, BMP #### [facility] [address] [place] [address] Biological Engineer: Ladarius Andres MD Ethanol [Mass/Vol] mg/dL Normal <10 [facility] Comment on above: Performed By: #### H CG, LIVP, CDP, EDTOX, BMP #### [facility] [address] [place] [address], [place] [address] Biological Engineer: Ladarius Andres MD Salicylate <1.0 Low 3-10 [facility] Comment on above: Performed By: #### H CG, LIVP, CDP, EDTOX, BMP #### [facility] [address] [place] [address] Biological Engineer: Ladarius Andres MD Type + Screenon 7 Type + Screen Sample Expiration 08/24/2023,2359 Arm Band Number [id number] ABO/Rh(D) O NEGATIVE Antibody Screen NEGATIVE Unit Number [id number] Blood Component Type Leukocyte Reduced Red Cell Unit Division 00 Status of Unit TRANSFUSED Transfusion Status OK TO TRANSFUSE Crossmatch Result COMPATIBLE Normal [facility] Comment on above: Performed By: #### T YS #### [facility] [address] [place] [address] Biological Engineer: Ladarius Andres MD UA w/Reflex Cultureon 5629 Bilirubin, SemiQt,Ur Negative Abnormal NEG [facility] Comment on above: Performed By: #### U PILLO MURRY DAU #### [facility] [address] [place] [address] Biological Engineer: Ladarius Andres MD Blood, Urine 2+ Abnormal NEG [facility] Comment on above: Performed By: #### U PILLO MURRY DAU #### [facility] [address] [place] [address] Biological Engineer: Ladarius Andres MD Clarity (U) SLIGHTLY CLOUDY Abnormal CLEAR [facility] Comment on above: Performed By: #### U RASHEEDA MURRYICAO, STACY #### [facility] [address] [place] [address], [place] [address] Biological Engineer: Ladarius Andres MD Color (U) Yellow Normal YEL [facility] Comment on above: Performed By: #### U AX, UMICAO, STACY #### [facility] [address] [place] [address], [place] [address] Biological Engineer: Ladarius Andres MD Glucose Ql (U) Negative Normal NEG [facility] Comment on above: Performed By: #### U AX, UMICAO, STACY #### [facility] [address] [place] [address], [place] [address] Biological Engineer: Ladarius Andres MD Ketones Ql (U) TRACE Abnormal NEG [facility] Comment on above: Performed By: #### U AXFELICIAO, STACY #### [facility] [address] [place] [address], [place] [address] Biological Engineer: Ladarius Andres MD Leukocyte esterase Test strip Ql (U) Negative Normal NEG [facility] Comment on above: Performed By: #### U AX, UMICAO, STACY #### [facility] [address] [place] [address], [place] [address] Biological Engineer: Ladarius Andres MD Nitrite,Ur Negative Normal NEG [facility] Comment on above: Performed By: #### U AX, UMICAO, STACY #### [facility] [address] [place] [address], [place] [address] Biological Engineer: Ladarius Andres MD PH,Ur 6.0 Normal 5.0-6.0 [facility] Comment on above: Performed By: #### U AX, UMICAO, STACY #### [facility] [address] [place] [address], [place] [address] Biological Engineer: Ladarius Andres MD Protein Ql (U) Negative Normal NEG [facility] Comment on above: Performed By: #### U AXPILLO STACY #### [facility] [address] [place] [address] Biological Engineer: Ladarius Andres MD Spec. Elida,Ur 1.026 High 1.010-1.02 5 [facility] Comment on above: Performed By: #### U AXPILLO, STACY #### [facility] [address] [place] [address] Biological Engineer: Ladarius Andres MD Urobilinogen,Ur 4 mg/dL Normal 0.0-1.0 [facility] Comment on above: Performed By: #### U AXPILLO STACY #### [facility] [address] [place] [address] Biological Engineer: Ladarius Andres MD Urinalysis,Microon 4 Bacteria FEW Abnormal [facility] Comment on above: Performed By: #### U AXPILLO STACY #### [facility] [address] [place] [address], [place] [address] Biological Engineer: Ladarius Andres MD Epithelial cells LM Ql (Urine sed) 0 TO 2 Normal 0-5 [facility] Comment on above: Performed By: #### U AXPILLO, STACY #### [facility] [address] [place] [address] Biological Engineer: Ladarius Andres MD Mucus Strands 3+ Abnormal [facility] Comment on above: Performed By: #### U AXPILLO STACY #### [facility] [address] [place] [address] Biological Engineer: Ladarius Andres MD Other Observations Utilizing a urinalys is as the only screening method to exclude a potential Abnormal NREQ [facility] Comment on above: Result Comment: urop athogen can be unreliable in many patient populations. Rapid screening tests are less sensitive than culture and if UTI is a clinical possibility, culture should be considered despite a negative urinalysis. Performed By: #### U PILLO MURRY DAU #### [facility] [address] [place] [address], [place] [address] Biological Engineer: Ladarius Andres MD Urine RBC's 20 TO 50 Normal 0-4 [facility] Comment on above: Performed By: #### U PILLO MURRY DAU #### [facility] [address] [place] [address], [place] [address] Biological Engineer: Ladarius Andres MD Urine WBC's 0 TO 2 Normal 04 [facility] Comment on above: Performed By: #### U PILLO MURRY STACY #### [facility] [address] [place] [address], [place] [address] Biological Engineer: Ladarius Andres MD DRUG SCREEN MED COMPLIANCE I on 05-18-2023 DRUG SCREEN MED COMPLIANCE I SPECIMEN SENT TO REFERENCE LAB FOR TESTING Normal [facility] DRUG SCREEN MED COMPLIANCE I SPECIMEN SENT TO REFERENCE LAB FOR TESTING [facility] COVID-19/INFLUENZA A,B MOLEC Javon 04-22-2023 SARS-CoV-2 (COVID-19) Ab IA Ql SARS-COV-2 (RAE): Detected INFLUENZA A (RAE): Not Detected INFLUENZA B (RAE): Not Detected Normal Not Detected [facility] Comment on above: Order Comment: This test was performed under the FDA's Emergency Use Authorization (EUA). Testing was performed using the Evaristo Pierce SARS-CoV-2 RT-PCR AND Influenza A/B Nucleic Acid Test on the Pierce Rae System. This test has not been approved for use in asymptomatic patients and its performance in this patient population has not been evaluated. Negative results do not rule out the presence of SARS-CoV-2, influenza A, and/or influenza B. Fact sheets for the EUA can be found at the following links: For Healthcare Providers: https://www.fda.gov/media/688231/download For Patients: https://www.fda.gov/media/667428/download Performed By: #### L [id number] #### [facility] [address] [address] Cheryl Chapman M.D. [id number] Cholesterol [Mass/volume] in Serum or PlasmaOrdered By: Mirza Duff on 01-14-2023 Cholesterol [Mass/Vol] 142 mg/dL 140-200 [facility] Comment on above: Chol less than 200 m g/dl low riskChol 201-239 mg/dl borderline riskChol 240 mg/dl and greater high risk Cholesterol in LDL Calc [Mas s/Vol]Ordered By: Mirza Duff on 01-14-2023 Cholesterol in LDL [Mass/Vol] 80 mg/dL 0-100 [facility] Comment on above: LDL ATP III CLASSIFI CATIONLDL less than 100 mg/dL OptimalLDL 100-129 mg/dL Near or above optimalLDL 130-159 mg/dL Borderline highLDL 160-189 mg/dL HighLDL greater than 189 mg/dL Very high Cholesterol in VLDL Calc [Ma ss/Vol]Ordered By: Mirza Duff on 01-14-2023 Cholesterol in VLDL [Mass/Vol] 11 mg/dL [facility] ECG 12 lead ECGon 01-14-2023 ECG 12 lead ECG [facility] [place] [place] [address] Electrocardiograph Report Signed Patient: Zack Jameson MR#: [id number] [birth year] : 1990 Acct:[id number] Age/Sex: 32 / F ADM Date: 01/13/23 Loc: Room: [address] [place] [address] Type: ADM IN Attending Dr: Mirza Duff [...] By: MUS Signed By Radha Solomon MD 0938 Normal [facility] Lipid Panelon 01-14-2023 Cholesterol [Mass/Vol] 142 mg/dL Normal 140-200 [facility] Comment on above: Result Comment: Chol less than 200 mg/dl low risk Chol 201-239 mg/dl borderline risk Chol 240 mg/dl and greater high risk Performed By: #### T SH3 wRFLX, LIPID, [id number] #### [facility] [address] Cholesterol in HDL [Mass/Vol] 50 mg/dL Normal 23-92 [facility] Comment on above: Result Comment: HDL CHOL ATP-III CLASSIFICATION Cardiovascular Risk HDL > or equal to 60 mg/dL LOW HDL < 40 mg/dL HIGH Performed By: #### T SH3 wRFLX, LIPID, [id number] #### [facility] [address] [place] [address] [facility] Cholesterol.total/Chol esterol in HDL [Mass ratio] 2.8 {ratio} Normal <5.0 [facility] Comment on above: Performed By: #### T SH3 wRFLX, LIPID, [id number] #### [facility] [address] [place] [address] [facility] LDL Cholesterol,Calculated 80 mg/dL Normal 0-100 [facility] Comment on above: Result Comment: LDL ATP III CLASSIFICATION LDL less than 100 mg/dL Optimal LDL 100-129 mg/dL Near or above optimal LDL 130-159 mg/dL Borderline high LDL 160-189 mg/dL High LDL greater than 189 mg/dL Very high Performed By: #### T SH3 wRFLX, LIPID, [id number] #### [facility] [address] [place] [address] [place] Triglyceride w/Reflex 59 mg/dL Normal 0-149 [facility] Comment on above: Result Comment: TRIG ATP III CLASSIFICATION TRIG less than 150 mg/dL Normal TRIG 150-199 mg/dL Borderline high TRIG 200-500 mg/dL High TRIG greater than 500 mg/dL Very high Standard traceable to the Center for Disease Conrtrol and Prevention (CDC) test method. Performed By: #### T SH3 wRFLX, LIPID, [id number] #### [facility] [address] VLDL CHOLESTEROL 11 mg/dL Normal [facility] Comment on above: Performed By: #### T SH3 wRFLX, LIPID, [id number] #### [facility] [address] Serum or plasma high density lipoprotein (HDL) cholesterol measurementOrdered By: Mirza Duff on 01-14-2023 Cholesterol in HDL [Mass/Vol] 50 mg/dL 23- [facility] Comment on above: HDL CHOL ATP-III CLA SSIFICATION Cardiovascular RiskHDL > or equal to 60 mg/dL LOWHDL < 40 mg/dL HIGH Serum or plasma total choles terol/high density lipoprotein (HDL) cholesterol mass ratOrdered By: Mirza Duff on 01-14-2023 Cholesterol.total/Chol esterol in HDL [Mass ratio] 2.8 {ratio} <5.0 [facility] Thyroid Stim Hormone w/Rflxo n 01-14-2023 Thyroid Stim Hormone w/Rflx 0.65 u[iU]/mL Normal 0.45-5.33 [facility] Comment on above: Performed By: #### T SH3 wRFLX, LIPID, [id number] #### [facility] [address] Thyrotropin [Units/volume] i n Serum or PlasmaOrdered By: Mirza Duff on 01-14-2023 TSH Qn 0.65 m[IU]/L 0.45-5.33 [facility] Triglyceride [Mass/volume] i n Serum or PlasmaOrdered By: Mirza Duff on 01-14-2023 Triglyceride [Mass/Vol] 59 mg/dL 0-149 [facility] Comment on above: TRIG ATP III CLASSIF ICATIONTRIG less than 150 mg/dL NormalTRIG 150-199 mg/dL Borderline highTRIG 200-500 mg/dL High TRIG greater than 500 mg/dL Very highStandard traceable to the Center for Disease Conrtrol and Prevention (CDC) test method. Vitamin D 25 Hydroxy Totalon 01-14-2023 Vitamin D 25 Hydroxy Total 30.5 ng/mL Normal 30-100 [facility] Comment on above: Result Comment: EDNA MIN D STATUS 25(OH)VITAMIN D RANGE (ng/mL) Deficient <20 Insufficient 20 to <30 Sufficient 30 to 100 Reference: Winston Delaney, Indira HADLEY, et al. Evaluation,treatment, and prevention of vitamin D deficiency; an Endocrine Society clinical practice guideline. JCEM. 2010; 96(7):1911-. PERFORMED BY: [place] [address] PATHOLOGIST SALES MERCHANDISER ROSA ROBISON M.D. Performed By: #### T SH3 wRFLX, LIPID, [id number] #### [address] Vitamin D+Metabolites [Mass/ volume] in Serum or PlasmaOrdered By: Mirza Duff on 01-14-2023 Vitamin D+Metabolites [Mass/Vol] 30.5 ng/mL 30-100 [facility] Comment on above: VITAMIN D STATUS 25( [place])VITAMIN D RANGE (ng/mL) Deficient <20 Insufficient 20 to <30Sufficient 30 to 100Reference: Winston Delaney, Indira HADLEY, et al. Evaluation,treatment, and prevention of vitamin D deficiency; an Endocrine Society clinical practice guideline. JCEM. 2010; 96(7):1911-30. HIV Ag/Abon 11-29-2022 HIV Ag/Ab Non-Reactive Normal NR [facility] Comment on above: Result Comment: No l aboratory evidence of HIV infection. If acute HIV infection is suspected, consider testing for HIV-1 RNA. Performed By: #### H IVCMB, TREP #### [facility] [employer] [address] [place] [address] Biological Engineer: Ladarius Andres MD Hep C Abon 11-29-2022 Hep C Ab Non-Reactive Normal NR [facility] Comment on above: Result Comment: The hepatitis [...] By: #### C MPF, HCG, CBC #### [facility] [address] [place] [address] [place] [address] Biological Engineer: Cal Gould MD #### AHCV #### [address] [id number] Biological Engineer: Ladarius Andres MD T.pallidum Ab Screenon 11-29 T.pallidum Ab Screen Non-Reactive Normal NR [facility] Comment on above: Result Comment: T. pallidum antibodies are not detected. There is no serological evidence of infection with T. pallidum (early primary syphilis cannot be excluded). Retest in 2-4 weeks if syphilis is clinically suspect. Performed By: #### H IVCMB, TREP #### [address] [id number] Biological Engineer: Ladarius Andres MD CBCon 11-28-2022 Erythrocyte distribution width (RBC) [Ratio] 16.8 % High 11.8-14.4 [facility] Comment on above: Performed By: #### C MPF, HCG, CBC #### [facility] [address] [place] [address] [place] [address] Biological Engineer: Cal Gould MD #### AHCV #### [address] [id number] Biological Engineer: Ladarius Andres MD Hematocrit (Bld) [Volume fraction] 28.0 % Low 36.3-47.1 [facility] Comment on above: Performed By: #### C MPF, HCG, CBC #### [facility] [address] [place] [address] Biological Engineer: Cal Gould MD #### AHCV #### [address] [id number] Biological Engineer: Ladarius Andres MD Hemoglobin (Bld) [Mass/Vol] 8.3 g/dL Low 11.9-15.1 [facility] Comment on above: Performed By: #### C MPF, HCG, CBC #### [facility] [address] [place] [address] Biological Engineer: Cal Gould MD #### AHCV #### [address] [address] [place], [place] [id number] Biological Engineer: Ladarius Andres MD MCH (RBC) [Entitic mass] 23.9 pg Low 25.2-33.5 [facility] Comment on above: Performed By: #### C MPF, HCG, CBC #### [facility] [address] [place] [address] Biological Engineer: Cal Gould MD #### AHCV #### [address] [place], [place] [id number] Biological Engineer: Ladarius Andres MD MCHC (RBC) [Mass/Vol] 29.6 g/dL Normal 28.4-34.8 [facility] Comment on above: Performed By: #### C MPF, HCG, CBC #### [facility] [address] [place] [address] Biological Engineer: Cal Gould MD #### AHCV #### [address] [place], [place] [id number] Biological Engineer: Ladarius Andres MD MCV (RBC) [Entitic vol] 80.7 fL Low 82.6-102.9 [facility] Comment on above: Performed By: #### C MPF, HCG, CBC #### [facility] [address] [place], [place] [id number] Biological Engineer: Cal Gould MD #### AHCV #### [address] [id number] Biological Engineer: Ladarius Andres MD NRBC Automated 0.0 per 100 WBC Normal 0.0 [facility] Comment on above: Performed By: #### C MPF, HCG, CBC #### [facility] [address] [place], [place] [id number] Biological Engineer: Cal Gould MD #### AHCV #### [address] [id number] Biological Engineer: Ladarius Andres MD Platelet mean volume (Bld) [Entitic vol] 10.6 fL Normal 8.1-13.5 [facility] Comment on above: Performed By: #### C MPF, HCG, CBC #### [facility] [address] [place], [place] [id number] Biological Engineer: Cal Gould MD #### AHCV #### [address] [address] Biological Engineer: Ladarius Andres MD Platelets (Bld) [#/Vol] 452 10*3/uL Normal 138-453 [facility] Comment on above: Performed By: #### C MPF, HCG, CBC #### [facility] [address] [place], [place] [phone] Biological Engineer: Cal Gould MD #### AHCV #### [address] [address] Biological Engineer: Ladarius Andres MD RBC (Bld) [#/Vol] 3.47 10*6/uL Low 3.95-5.11 [facility] Comment on above: Performed By: #### C MPF, HCG, CBC #### [facility] [address] [place], [place] [phone] Biological Engineer: Cal Gould MD #### AHCV #### [address] [address] Biological Engineer: Ladarius Andres MD WBC (Bld) [#/Vol] 6.3 10*3/uL Normal 3.5-11.3 [facility] Comment on above: Performed By: #### C MPF, HCG, CBC #### [facility] [address] [place], [place] [phone] Biological Engineer: Cal Gould MD #### AHCV #### [address] [address] Biological Engineer: Ladarius Andres MD Comp Metabol,Fastingon 11-28 Albumin [Mass/Vol] 3.9 g/dL Normal 3.5-5.2 [facility] Comment on above: Performed By: #### C MPF, HCG, CBC #### [address] [place], [place] [phone] Biological Engineer: Cal Gould MD #### AHCV #### [address] [address] Biological Engineer: Ladarius Andres MD Albumin/Glob Ratio 1.3 Normal 1.0-2.5 [facility] Comment on above: Performed By: #### C MPF, HCG, CBC #### [facility] [address] [place], [place] [id number] Biological Engineer: Cal Gould MD #### AHCV #### [address] [address] Biological Engineer: Ladarius Andres MD Alkaline Phos 76 U/L Normal 35-104 [facility] Comment on above: Performed By: #### C MPF, HCG, CBC #### [facility] [address] [place], [place] [id number] Biological Engineer: Cal Gould MD #### AHCV #### [address] [place], [place] [phone] Biological Engineer: Ladarius Andres MD ALT [Catalytic activity/Vol] 8 U/L Normal 5-33 [facility] Comment on above: Performed By: #### C MPF, HCG, CBC #### [facility] [address] [place], [place] [id number] Biological Engineer: Cal Gould MD #### AHCV #### [address] [address] Biological Engineer: Ladarius Andres MD Anion gap [Moles/Vol] 7 mmol/L Low 9-17 [facility] Comment on above: Performed By: #### C MPF, HCG, CBC #### [facility] [address] [place], [place] [id number] Biological Engineer: Cal Gould MD #### AHCV #### [address] [place] [address] Biological Engineer: Ladarius Andres MD AST [Catalytic activity/Vol] 15 U/L Normal <32 [facility] Comment on above: Performed By: #### C MPF, HCG, CBC #### [facility] [address] [place], [place] [phone] Biological Engineer: Cal Gould MD #### AHCV #### [address] [address] Biological Engineer: Ladarius Andres MD Bilirubin [Mass/Vol] 0.2 mg/dL Low 0.3-1.2 [facility] Comment on above: Performed By: #### C MPF, HCG, CBC #### [address] [place], [place] [id number] Biological Engineer: Cal Gould MD #### AHCV #### [address] [id number] Biological Engineer: Ladarius Andres MD BUN/CRE Ratio 16 Normal 9-20 [facility] Comment on above: Performed By: #### C MPF, HCG, CBC #### [facility] [address] [place] [address] [place], [place] [phone] Biological Engineer: Cal Gould MD #### AHCV #### [address] [id number] Biological Engineer: Ladarius Andres MD Calcium [Mass/Vol] 9.1 mg/dL Normal 8.6-10.4 [facility] Comment on above: Performed By: #### C MPF, HCG, CBC #### [facility] [address] [place] [address] [place], [place] [phone] Biological Engineer: Cal Gould MD #### AHCV #### [address] [address] Biological Engineer: Ladarius Andres MD Chloride [Moles/Vol] 107 mmol/L Normal 98-107 [facility] Comment on above: Performed By: #### C MPF, HCG, CBC #### [facility] [address] [place] [address] [place], [place] [phone] Biological Engineer: Cal Gould MD #### AHCV #### [address] [address] Biological Engineer: Ladarius Andres MD CO2 [Moles/Vol] 26 mmol/L Normal 20-31 [facility] Comment on above: Performed By: #### C MPF, HCG, CBC #### [facility] [address] [place] [address] [place], [place] [phone] Biological Engineer: Cal Gould MD #### AHCV #### [address] [place], [place] 4485108 Biological Engineer: Ladarius Andres MD Creatinine [Mass/Vol] 0.5 mg/dL Normal 0.5-0.9 [facility] Comment on above: Performed By: #### C MPF, HCG, CBC #### [facility] [address] [place] [address] [place] [address] Biological Engineer: Cal Gould MD #### AHCV #### [address] [id number] Biological Engineer: Ladarius Andres MD GFR/1.73 sq M.predicted among non-blacks MDRD (S/P/Bld) [Vol rate/Area] mL/min/{1.73_m2} Normal >60 [facility] Comment on above: Result Comment: [...] By: #### C MPF, HCG, CBC #### [facility] [address] [place] [address] [place] [address] Biological Engineer: Cal Gould MD #### AHCV #### [address] [place], [place] [phone] Biological Engineer: Ladarius Andres MD Glucose [Mass/Vol] 94 mg/dL Normal 70-99 [facility] Comment on above: Performed By: #### C MPF, HCG, CBC #### [facility] [address] [place] [address] [place] [address] Biological Engineer: Cal Gould MD #### AHCV #### [address] [place] [address] Biological Engineer: Ladarius Andres MD Potassium [Moles/Vol] 4.5 mmol/L Normal 3.7-5.3 [facility] Comment on above: Performed By: #### C MPF, HCG, CBC #### [facility] [address] [place], [place] [phone] Biological Engineer: Cal Gould MD #### AHCV #### [address] [address] Biological Engineer: Ladarius Andres MD Protein [Mass/Vol] 6.8 g/dL Normal 6.4-8.3 [facility] Comment on above: Performed By: #### C MPF, HCG, CBC #### [facility] [address] [place] [address] [address], [place] [phone] Biological Engineer: Cal Gould MD #### AHCV #### [address] [address] Biological Engineer: Ladarius Andres MD Sodium [Moles/Vol] 140 mmol/L Normal 135-144 [facility] Comment on above: Performed By: #### C MPF, HCG, CBC #### [facility] [address] [place] [address] [address], [place] [phone] Biological Engineer: Cal Gould MD #### AHCV #### [address] [address] Biological Engineer: Ladarius Andres MD Urea nitrogen [Mass/Vol] 8 mg/dL Normal 6-20 [facility] Comment on above: Performed By: #### C MPF, HCG, CBC #### [facility] [address] [place], [place] [id number] Biological Engineer: Cal Gould MD #### AHCV #### [address] [address] Biological Engineer: Ladarius Andres MD HCG Screen, Bloodon 11-29-19 HCG Screen, Blood Negative Normal NEG [facility] Comment on above: Result Comment: Spec imens with hCG levels near the threshold of the test (25 mIU/mL) may give a negative or indeterminate result. In such cases, another test should be performed with a new specimen in 48-72 hours. If early is suspected clinically in this setting, correlation with quantitative serum b-hCG level is suggested. [facility] has confirmed the use of plasma for this test. This has not been cleared or approved by the U.S. Food and Drug Administration. The FDA has determined that such clearance is not necessary. Performed By: #### C MPF, HCG, CBC #### [facility] [address] [place] [address] [place] [address] Biological Engineer: Cal Gould MD #### AHCV #### [facility] [address] [place] [address] Biological Engineer: Ladarius Andres MD Liver Profileon 11-28-2022 Albumin [Mass/Vol] 3.9 g/dL Normal 3.5-5.2 [facility] Comment on above: Performed By: #### L IVP #### [facility] [address] [place] [address] [place] [address] Biological Engineer: Cal Gould MD Albumin/Glob Ratio 1.5 Normal 1.0-2.5 [facility] Comment on above: Performed By: #### L IVP #### [facility] [address] [place] [address] Biological Engineer: Cal Gould MD Alkaline Phos 82 U/L Normal 35-104 [facility] Comment on above: Performed By: #### L IVP #### [facility] [address] [place] [address] Biological Engineer: Cal Gould MD ALT [Catalytic activity/Vol] 8 U/L Normal 5-33 [facility] Comment on above: Performed By: #### L IVP #### [facility] [address] [place] [address] [place], [place] [phone] Biological Engineer: Cal Gould MD AST [Catalytic activity/Vol] 13 U/L Normal <32 [facility] Comment on above: Performed By: #### L IVP #### [facility] [address] [place] [address] [place], [place] [phone] Biological Engineer: Cal Gould MD Bilirubin [Mass/Vol] 0.2 mg/dL Low 0.3-1.2 [facility] Comment on above: Performed By: #### L IVP #### [address] [place], [place] 4010183 Biological Engineer: Cal Gould MD Bilirubin, Indirect Can not be calculated Normal 0.0-1 .0 [facility] Comment on above: Performed By: #### L IVP #### [facility] [address] [place] [address] Dr[place], [place] [id number] Biological Engineer: Cal Gould MD Bilirubin.indirect [Mass/Vol] mg/dL Normal <0.3 [facility] Comment on above: Performed By: #### L IVP #### [address] [place], [place] [phone] Biological Engineer: Cal Gould MD Protein [Mass/Vol] 6.5 g/dL Normal 6.4-8.3 [facility] Comment on above: Performed By: #### L IVP #### [facility] [address] [place] [address] [place] [address] Biological Engineer: Cal Gould MD Final Surgical Pathology Rep [facility] 11-01-2022 Final Surgical Pathology Report . Pathology Reports Accession: Collected Date/Time: Received Date/Time: Pathologist: [id number] 10/31/2022 12:42 EDT 10/31/2022 14:23 EDT GALLITO PRADO MD Final Surgical Pathology Report DIAGNOSIS: STOMACH, BIOPSY: - NO SIGNIFICANT MICROSCOPIC PATHOLOGY CLINICAL INFORMATION: Procedure: ESOPHAGOGASTRODUODENOSCOPY Preoperative diagnosis: GASTROINTESTINAL BLEED, ACUTE BLOOD LOSS ANEMIA Postoperative diagnosis: GASTROINTESTINAL BLEED, ACUTE BLOOD LOSS ANEMIA SPECIMEN: A GASTRIC BX - R/O H PYLORI GROSS DESCRIPTION: All parts labelled with patient name and [id number] Received in formalin labeled gastric biopsy is 1 [place] tissue fragment measuring 0.5 x 0.1 cm. TS-1 Chuyita Cuba, Grossing Review Trainer/ Dr. Gallito Prado, Pathologist Dictated by Chuyita Cuba MICROSCOPIC DESCRIPTION: The microscopic examination is performed, except in the case of Gross Only. Electronically Signed by Pathology Report verified by [facility] GALLITO PRADO Sign out Date: 11/01/2022 17:08 Performing Lab: [address] Pathology Dept Disclaimer If ancillary studies were utilized, the following Laboratory Developed Test (LDT) disclaimer will apply: Under CLIA requirements, [facility] is qualified to perform high complexity testing. For all ancillary stains, positive and negative controls stain appropriately. Performance characteristics of immunohistochemical and chromogenic in-situ hybridization tests have been determined by [facility]. These tests are used for clinical purposes, They should not be regarded as investigational or for research. Normal [facility] ([place]) .Auto Diffon 10-31-2022 Basophil, Absolute 0.1 10 3/mcL Normal 0.0-0.3 [facility] ([place]) Comment on above: Performed By: #### C BC, BMP, GFR, MORPH, ADIFF, ANEU #### [address] [address] Basophils/100 WBC (Bld) 0.9 % Normal 0.0-2.5 [facility] ([place]) Comment on above: Performed By: #### C BC, BMP, GFR, MORPH, ADIFF, ANEU #### [address] [address] Eosinophil, Absolute 0.2 10 3/mcL Normal 0.0-0.7 [facility] ([place]) Comment on above: Performed By: #### C BC, BMP, GFR, MORPH, ADIFF, ANEU #### [address] [address] Eosinophils/100 WBC (Bld) 2.7 % Normal 0.0-6.0 [facility] ([place]) Comment on above: Performed By: #### C BC, BMP, GFR, MORPH, ADIFF, ANEU #### [address] [address] Lymphocyte, Absolute 3.6 10 3/mcL Normal 0.9-4.3 [facility] ([place]) Comment on above: Performed By: #### C BC, BMP, GFR, MORPH, ADIFF, ANEU #### [address] [address] Lymphocytes/100 WBC (Bld) 50.5 % High 20.0-40.0 [facility] ([place]) Comment on above: Performed By: #### C BC, BMP, GFR, MORPH, ADIFF, ANEU #### [address] [address] Monocyte, Absolute 0.4 10 3/mcL Normal 0.1-1.4 [facility] ([place]) Comment on above: Performed By: #### C BC, BMP, GFR, MORPH, ADIFF, ANEU #### [address] [address] Monocytes/100 WBC (Bld) 5.7 % Normal 2.0-13.0 [facility] ([place]) Comment on above: Performed By: #### C BC, BMP, GFR, MORPH, ADIFF, ANEU #### [address] [address] Neutrophils/100 WBC (Bld) 40.2 % Low 50.0-75.0 [facility] ([place]) Comment on above: Performed By: #### C BC, BMP, GFR, MORPH, ADIFF, ANEU #### [address] [address] .GFRon 10-31-2022 GFR >60 Normal [facility] ([place]) Comment on above: Result Comment: GFR [...] Performed By: #### G FR, BMP #### [address] [address] GFR Non- >60 Normal [facility] ([place]) Comment on above: Result Comment: GFR [...] Performed By: #### G FR, BMP #### [address] [address] GFR Non- >60 Normal [facility] ([place] Comment on above: Result Comment: GFR [...] BC, BMP, GFR, MORPH, ADIFF, ANEU #### [address] [address] GFR >60 Normal [facility] ([place] Comment on above: Result Comment: GFR [...] BC, BMP, GFR, MORPH, ADIFF, ANEU #### [place] [address] .Morphon 10-31-2022 Platelet Estimate Normal Normal [facility] ([place] Comment on above: Performed By: #### C BC, BMP, GFR, MORPH, ADIFF, ANEU #### [place] [address] RBC morphology finding Nom (Bld) See Below Normal [facility] ([place]) Comment on above: Result Comment: RBC Morphology appears Normal Performed By: #### C BC, BMP, GFR, MORPH, ADIFF, ANEU #### [place] [address] .NEUABSon 10-31-2022 Neutrophil, Absolute 2.8 10 3/mcL Normal 2.3-8.1 [facility] ([place] Comment on above: Performed By: #### C BC, BMP, GFR, MORPH, ADIFF, ANEU #### [place] [address] BMPon 10-31-2022 BUN/Creatinine Ratio 22.0 ratio Normal 10.0-22.0 [facility] ([place] Comment on above: Performed By: #### Aldair PARKER, BMP #### [address] [address] Calcium [Mass/Vol] 8.1 mg/dL Low 8.7-10.4 [facility] ([place]) Comment on above: Performed By: #### Aldair PARKER, BMP #### [address] [address] Chloride [Moles/Vol] 112 mmol/L High 98-110 [facility] ([place] Comment on above: Performed By: #### Aldair PARKER, BMP #### [address] [address] CO2 [Moles/Vol] 24 mmol/L Normal 22-32 [facility] ([place] Comment on above: Performed By: #### Aldair PARKER, BMP #### [address] [address] Creatinine [Mass/Vol] 0.59 mg/dL Normal 0.50-1.20 [facility] ([place]) Comment on above: Performed By: #### Aldair PARKER, BMP #### [address] [address] Electrolyte Balance 6.0 mEq/L Normal 4.0-15.0 [facility] ([place]) Comment on above: Performed By: #### Aldair PARKER, BMP #### [address] [address] Glucose [Mass/Vol] 88 mg/dL Normal 70-110 [facility] ([place] Comment on above: Performed By: #### Aldair PARKER, BMP #### [address] [address] Potassium [Moles/Vol] 3.6 mmol/L Normal 3.5-5.0 [facility] ([place] Comment on above: Performed By: #### Aldair PARKER, BMP #### [address] [address] Sodium [Moles/Vol] 142 mmol/L Normal 136-145 [facility] ([place] Comment on above: Performed By: #### G FR, BMP #### [address] [address] Urea nitrogen [Mass/Vol] 13.0 mg/dL Normal 8.0-22.0 [facility] ([place] Comment on above: Performed By: #### G FR, BMP #### [address] [address] BUN/Creatinine Ratio 25.9 ratio High 10.0-22.0 [facility] ([place] Comment on above: Performed By: #### C BC, BMP, GFR, MORPH, ADIFF, ANEU #### [address] [address] Calcium [Mass/Vol] 7.9 mg/dL Low 8.7-10.4 [facility] ([place] Comment on above: Performed By: #### C BC, BMP, GFR, MORPH, ADIFF, ANEU #### [address] [address] Chloride [Moles/Vol] 113 mmol/L High 98-110 [facility] ([place] Comment on above: Performed By: #### C BC, BMP, GFR, MORPH, ADIFF, ANEU #### [address] [address] CO2 [Moles/Vol] 23 mmol/L Normal 22-32 [facility] ([place] Comment on above: Performed By: #### C BC, BMP, GFR, MORPH, ADIFF, ANEU #### [address] [address] Creatinine [Mass/Vol] 0.58 mg/dL Normal 0.50-1.20 [facility] ([place] Comment on above: Performed By: #### C BC, BMP, GFR, MORPH, ADIFF, ANEU #### [address] [address] Electrolyte Balance 5.0 mEq/L Normal 4.0-15.0 [facility] ([place] Comment on above: Performed By: #### C BC, BMP, GFR, MORPH, ADIFF, ANEU #### [address] [address] Glucose [Mass/Vol] 83 mg/dL Normal 70-110 [facility] ([place] Comment on above: Performed By: #### C BC, BMP, GFR, MORPH, ADIFF, ANEU #### [place] [id number] Potassium [Moles/Vol] 3.5 mmol/L Normal 3.5-5.0 [facility] ([place] Comment on above: Performed By: #### C BC, BMP, GFR, MORPH, ADIFF, ANEU #### [place] [id number] Sodium [Moles/Vol] 141 mmol/L Normal 136-145 [facility] ([place] Comment on above: Performed By: #### C BC, BMP, GFR, MORPH, ADIFF, ANEU #### [place] [address] Urea nitrogen [Mass/Vol] 15.0 mg/dL Normal 8.0-22.0 [facility] ([place] Comment on above: Performed By: #### C BC, BMP, GFR, MORPH, ADIFF, ANEU #### [place] [id number] CBCon 10-31-2022 Erythrocyte distribution width (RBC) [Ratio] 14.6 % Normal 11.5-15.5 [facility] ([place] Comment on above: Performed By: #### C BC, BMP, GFR, MORPH, ADIFF, ANEU #### [place] [address] Hematocrit (Bld) [Volume fraction] 23.0 % Low 34.0-46.0 [facility] ([place] Comment on above: Performed By: #### C BC, BMP, GFR, MORPH, ADIFF, ANEU #### [place] [id number] Hgb 7.7 G/dL Low 12.0-16.0 [facility] ([place] Comment on above: Performed By: #### C BC, BMP, GFR, MORPH, ADIFF, ANEU #### [place] [id number] MCH (RBC) [Entitic mass] 28.6 pg Normal 27.0-33.0 [facility] ([place] Comment on above: Performed By: #### C BC, BMP, GFR, MORPH, ADIFF, ANEU #### [place] [address] MCHC 33.5 G/dL Normal 32.0-36.0 [facility] ([place] Comment on above: Performed By: #### C BC, BMP, GFR, MORPH, ADIFF, ANEU #### [place] [address] MCV (RBC) [Entitic vol] 85.4 fL Normal 80.0-99.0 [facility] ([place] Comment on above: Performed By: #### C BC, BMP, GFR, MORPH, ADIFF, ANEU #### [place] [address] Platelet 231 10 3/mcL Normal 150-450 [facility] ([place] Comment on above: Performed By: #### C BC, BMP, GFR, MORPH, ADIFF, ANEU #### [place] [address] Platelet mean volume (Bld) [Entitic vol] 8.2 fL Normal 6.6-10.5 [facility] ([place] Comment on above: Performed By: #### C BC, BMP, GFR, MORPH, ADIFF, ANEU #### [place] [address] RBC 2.70 10 6/mcL Low 4.10-5.30 [facility] ([place] Comment on above: Performed By: #### C BC, BMP, GFR, MORPH, ADIFF, ANEU #### [place] [address] WBC 7.1 10 3/mcL Normal 4.5-10.8 [facility] ([place]) Comment on above: Performed By: #### C BC, BMP, GFR, MORPH, ADIFF, ANEU #### [place] [address] LABORATORYOrdered By: Erum Ramirez on 07-17-2023 Beta HCG ( test) Ql (U) HCG not detected.Very dilute urine specimens, as indicated by a low specific gravity, may not contain sales representative electric service levels of hCG.If is still suspected, a [...] HCG ( test) Ql (U) Negative Normal [facility] ([place]) Comment on above: Performed By: #### P REGU #### [facility] [address] [place], [place] [address] test (u) int Not detected Invalid Interpretation Code [facility] ([place]) Comment on above: Performed By: #### P REGU #### [facility] [address] [place] [id number] 3610-10-2022 36 Tried calling this p atient many times... No answer & I get a message saying the mailbox is full & cannot accept anymore messages, then it hangs up on me! [facility] 3608-29-2022 36 Called to r/s 08/31 a pt with elmer. No answer [facility] 07-11-2022 36 Spoke w pnt. Appt made [facility] 07-08-2022 36 Called patient to katherine templeton appointment, patient was driving and asked me to call her back in 20 minutes. [facility] 07-07-2022 36 Name of caller: Khushboo Jameson Contact phone number: [phone] Relationship to Patient: patient Provider: Practice: [facility] Chief Complaint/Reason for Call: Zack is requesting to be scheduled for a n/p appointment.Please contact and advise. Best time of day caller can be reached: Any Patient advised that office/PCP has 24-48 business hours to return their call: Yes Normal [facility] Basic Metabolic Panelon 07-1 Anion gap [Moles/Vol] 8 mmol/L Normal 3-13 [facility] Comment on above: Performed By: #### B CAMILLE SWAIN MDIFF #### [facility] [address] [place] [address] Calcium [Mass/Vol] 9.3 mg/dL Normal 8.4-10.4 [facility] Comment on above: Performed By: #### B CAMILLE SWAIN MDIFF #### [facility] [address] [place] [address] CO2 [Moles/Vol] 27 mmol/L Normal 22-30 [facility] Comment on above: Performed By: #### B CAMILLE SWAIN MDIFF #### [facility] [address] [place], [place] Glucose [Mass/Vol] 58 mg/dL Low 70-100 [facility] Comment on above: Performed By: #### B CAMILLE SWAIN MDIFF #### [facility] [address] [place], [place] Urea nitrogen [Mass/Vol] 13 mg/dL Normal 9-20 [facility] Comment on above: Performed By: #### B CAMILLE SWAIN MDIFF #### [address] Creatinine [Mass/Vol] 0.54 mg/dL Normal 0.52-1.25 [facility] Comment on above: Performed By: #### B CAMILLE SWAIN MDIFF #### [address] eGFR OTHER > 90.0 Normal >60 [facility] Comment on above: Result Comment: KDIG O [...] By: #### B CAMILLE SWAIN MDIFF #### [address] [address] GFR/1.73 sq M.predicted among blacks MDRD (S/P/Bld) [Vol rate/Area] mL/min/{1.73_m2} Normal >60 [facility] Comment on above: Performed By: #### B CAMILLE SWAIN MDIFF #### [place] [address] [address] [place], [place] Chloride [Moles/Vol] 104 mmol/L Normal 98-107 [facility] Comment on above: Performed By: #### CAMILLE WEEMS MDIFF #### [place] [address] [address] [place], [place] Potassium [Moles/Vol] 4.5 mmol/L Normal 3.5-5.1 [facility] Comment on above: Performed By: #### CAMILLE WEEMS MDIFF #### [place] [address] [address] [place], [place] Sodium [Moles/Vol] 139 mmol/L Normal 135-145 [facility] Comment on above: Performed By: #### CAMILLE WEEMS MDIFF #### [place] [address] [address] [place], [place] Hemogram w/ Autodiffon 10-31 Erythrocyte distribution width (RBC) [Ratio] 33.5 % High 11.5-14.5 [facility] Comment on above: Performed By: #### CAMILLE WEEMS MDIFF #### [place] [address] [address] [place], [place] Hematocrit (Bld) [Volume fraction] 29.2 % Low 35.0-47.0 [facility] Comment on above: Performed By: #### CAMILLE WEEMS MDIFF #### [place] [address] [address] [place], [place] Hemoglobin (Bld) [Mass/Vol] 8.7 g/dL Low 11.7-16.0 [facility] Comment on above: Performed By: #### CAMILLE WEEMS MDIFF #### [place] [address] [place] MCH (RBC) [Entitic mass] 19.3 pg Low 26.0-34.0 [facility] Comment on above: Performed By: #### CAMILLE WEEMS MDIFF #### [place] [address] [address] [place], [place] MCHC 29.9 % Low 32.0-36.0 [facility] Comment on above: Performed By: #### CAMILLE WEEMS MDIFF #### [place] [address] [address] [place], [place] MCV (RBC) [Entitic vol] 64.5 fL Low 79.0-98.0 [facility] Comment on above: Performed By: #### CAMILLE WEEMS MDIFF #### [place] [address] [address] [place], [place] Platelet mean volume (Bld) [Entitic vol] 8.5 fL Normal 7.4-12.4 [facility] Comment on above: Result Comment: MPV is a calculated measurement using platelet volume ratio. Performed By: #### CAMILLE WEEMS MDIFF #### [address] Platelets (Bld) [#/Vol] 243 10*3/uL Normal 140-440 [facility] Comment on above: Performed By: #### CAMILLE WEEMS MDIFF #### [place] [address] [place], [place] RBC (Bld) [#/Vol] 4.52 10*6/uL Normal 3.80-5.20 [facility] Comment on above: Performed By: #### CAMILLE WEEMS MDIFF #### [address] WBC (Bld) [#/Vol] 6.2 10*3/uL Normal 3.6-10.7 [facility] Comment on above: Performed By: #### CAMILLE WEEMS MDIFF #### [address] Manual Diffon 10-31-2021 Abs Eosin Cnt 0.2 10*3/uL Normal 0.0-0.5 [facility] Comment on above: Performed By: #### CAMILLE WEEMS MDIFF #### [place] [address] [address] [place], [place] Abs Lymph Cnt 3.4 10*3/uL Normal 1.1-4.5 [facility] Comment on above: Performed By: #### CAMILLE WEEMS MDIFF #### [place] [address] [address] [place], [place] Abs Monocyte Cnt 0.4 10*3/uL Normal 0.2-1.1 [facility] Comment on above: Performed By: #### CAMILLE WEEMS MDIFF #### [place] [address] [address] [place], [place] Abs Neutrophile Cnt 2.1 10*3/uL Low 2.2-8.2 [facility] Comment on above: Performed By: #### CAMILLE WEEMS MDIFF #### [place] [address] [address] [place], [place] Anisocytosis Moderate Normal [facility] Comment on above: Performed By: #### CAMILLE WEEMS MDIFF #### [place] [address] [address] [place], [place] Eosinophils 4 % Normal 1-6 [facility] Comment on above: Performed By: #### CAMILLE WEEMS MDIFF #### [place] [address] [address] [place], [place] Hypochromia Slight Normal [facility] Comment on above: Performed By: #### CAMILLE WEEMS MDIFF #### [place] [address] [address] [place], [place] Lymphocytes 55 % High 20-40 [facility] Comment on above: Performed By: #### CAMILLE WEEMS MDIFF #### [place] [address] [address] [place], [place] Microcytosis Slight Normal [facility] Comment on above: Performed By: #### CAMILLE WEEMS MDIFF #### [place] [address] [address] [place], [place] Monocytes 7 % Normal 2-10 [facility] Comment on above: Performed By: #### CAMILLE WEEMS MDIFF #### [facility] [address] [place], [place] Ovalocytes Moderate Normal [facility] Comment on above: Performed By: #### CAMILLE WEEMS MDIFF #### [facility] [address] [place], [place] Poikilocytosis Moderate Normal [facility] Comment on above: Performed By: #### CAMILLE WEEMS MDIFF #### [place] [address] [address] [place], [place] Polychromasia Slight Normal [facility] Comment on above: Performed By: #### CAMILLE WEEMS MDIFF #### [place] [address] [address] [place], [place] RBC Morphology ABNORMAL Normal [facility] Comment on above: Performed By: #### CAMILLE WEEMS MDIFF #### [place] [address] [address] [place], [place] Seg Neutrophils 34 % Low 40-80 [facility] Comment on above: Performed By: #### CAMILLE WEEMS MDIFF #### [place] [address] [address] [place], [place] Target Cells Slight Normal [facility] Comment on above: Performed By: #### CAMILLE WEEMS MDIFF #### [place] [address] [address] [place], [place] Tear Drop Forms Slight Normal [facility] Comment on above: Performed By: #### CAMILLE WEEMS MDIFF #### [place] [address] [address] [place], [place] Abs Baso Cnt 0.0 10*3/uL Normal 0.0-0.2 [facility] Comment on above: Performed By: #### CAMILLE WEEMS MDIFF #### [place] [address] [address] [place], [place] Bands 0 % Normal 0-3 [facility] Comment on above: Performed By: #### CAMILLE WEEMS MDIFF #### [place] [address] [address] [place], [place] Basophils 0 % Normal 0-2 [facility] Comment on above: Performed By: #### CAMILLE WEEMS MDIFF #### [facility] [address] [place], [place] Cells counted 100 Normal [facility] Comment on above: Performed By: #### CAMILLE WEEMS MDIFF #### [place] [address] [address] [place], [place] Basic Metabolic Panelon 10-15 Anion gap [Moles/Vol] 9 mmol/L Normal 3-13 [facility] Comment on above: Performed By: #### CAMILLE WEEMS MDIFF #### [place] [address] [address] [place], [place] Calcium [Mass/Vol] 9.2 mg/dL Normal 8.4-10.4 [facility] Comment on above: Performed By: #### CAMILLE WEEMS MDIFF #### [place] [address] [address] [place], [place] CO2 [Moles/Vol] 27 mmol/L Normal 22-30 [facility] Comment on above: Performed By: #### CAMILLE WEEMS MDIFF #### [place] [address] [address] [place], [place] Glucose [Mass/Vol] 95 mg/dL Normal 70-100 [facility] Comment on above: Performed By: #### CAMILLE WEEMS MDIFF #### [place] [address] [address] [place], [place] Urea nitrogen [Mass/Vol] 12 mg/dL Normal 9-20 [facility] Comment on above: Performed By: #### CAMILLE WEEMS MDIFF #### [place] [address] [address] [place], [place] Creatinine [Mass/Vol] 0.46 mg/dL Low 0.52-1.25 [facility] Comment on above: Performed By: #### CAMILLE WEMES MDIFF #### [address] eGFR OTHER > 90.0 Normal >60 [facility] Comment on above: Result Comment: KDIG O [...] Performed By: #### CAMILLE WEEMS MDIFF #### [address] GFR/1.73 sq M.predicted among blacks MDRD (S/P/Bld) [Vol rate/Area] mL/min/{1.73_m2} Normal >60 [facility] Comment on above: Performed By: #### CAMILLE WEEMS MDIFF #### [address] Chloride [Moles/Vol] 104 mmol/L Normal 98-107 [facility] Comment on above: Performed By: #### CAMILLE WEEMS MDIFF #### [address] Potassium [Moles/Vol] 4.2 mmol/L Normal 3.5-5.1 [facility] Comment on above: Performed By: #### CAMILLE WEEMS MDIFF #### [address] Sodium [Moles/Vol] 140 mmol/L Normal 135-145 [facility] Comment on above: Performed By: #### CAMILLE WEEMS MDIFF #### [place] [address] [address] [place], [place] Hemogram w/ Autodiffon 10-28 Abs Baso Cnt 0.1 10*3/uL Normal 0.0-0.2 [facility] Comment on above: Performed By: #### CAMILLE WEEMS MDIFF #### [place] [address] [address] [place], [place] Abs Neutrophile Cnt 4.7 10*3/uL Normal 1.8-7.0 [facility] Comment on above: Performed By: #### CAMILLE WEEMS MDIFF #### [place] [address] [address] [place], [place] Basophils/100 WBC (Bld) 0.9 % Normal 0.0-2.0 [facility] Comment on above: Performed By: #### CAMILLE WEEMS MDIFF #### [place] [address] [address] [place], [place] Eosinophils (Bld) [#/Vol] 0.1 10*3/uL Normal 0.0-0.5 [facility] Comment on above: Performed By: #### CAMILLE WEEMS MDIFF #### [place] [address] [place] Eosinophils/100 WBC (Bld) 2.0 % Normal 1.0-6.0 [facility] Comment on above: Performed By: #### CAMILLE WEEMS MDIFF #### [place] [address] [address] [place], [place] Erythrocyte distribution width (RBC) [Ratio] 29.2 % High 11.5-14.5 [facility] Comment on above: Performed By: #### CAMILLE WEEMS MDIFF #### [address] Granulocytes/100 WBC (Bld) 73.7 % Normal 40.0-80.0 [facility] Comment on above: Performed By: #### CAMILLE WEEMS MDIFF #### [place] [address] [address] [place], [place] Hematocrit (Bld) [Volume fraction] 28.7 % Low 35.0-47.0 [facility] Comment on above: Performed By: #### CAMILLE WEEMS MDIFF #### [facility] [address] [place], [place] Hemoglobin (Bld) [Mass/Vol] 8.2 g/dL Low 11.7-16.0 [facility] Comment on above: Performed By: #### CAMILLE WEEMS MDIFF #### [place] [address] [address] [place], [place] Lymphocytes (Bld) [#/Vol] 1.1 10*3/uL Normal 1.0-4.3 [facility] Comment on above: Performed By: #### CAMILLE WEEMS MDIFF #### [place] [address] [address] [place], [place] Lymphocytes/100 WBC (Bld) 17.4 % Low 20.0-40.0 [facility] Comment on above: Performed By: #### CAMILLE WEEMS MDIFF #### [place] [address] [address] [place], [place] MCH (RBC) [Entitic mass] 17.7 pg Low 26.0-34.0 [facility] Comment on above: Performed By: #### CAMILLE WEEMS MDIFF #### [place] [address] [address] [place] MCHC 28.7 % Low 32.0-36.0 [facility] Comment on above: Performed By: #### CAMILLE WEEMS MDIFF #### [place] [address] [address] [place], [place] MCV (RBC) [Entitic vol] 61.7 fL Low 79.0-98.0 [facility] Comment on above: Performed By: #### CAMILLE WEEMS MDIFF #### [place] [address] [address] [place], [place] Monocytes (Bld) [#/Vol] 0.4 10*3/uL Normal 0.0-0.8 [facility] Comment on above: Performed By: #### CAMILLE WEEMS MDIFF #### [place] [address] [address] [place], [place] Monocytes/100 WBC (Bld) 6.0 % Normal 2.0-10.0 [facility] Comment on above: Performed By: #### CAMILLE WEEMS MDIFF #### [place] [address] [address] [place], [place] Platelet mean volume (Bld) [Entitic vol] 8.1 fL Normal 7.4-12.4 [facility] Comment on above: Result Comment: MPV is a calculated measurement using platelet volume ratio. Performed By: #### CAMILLE WEEMS MDIFF #### [place] [address] [address] [place], [place] Platelets (Bld) [#/Vol] 256 10*3/uL Normal 140-440 [facility] Comment on above: Performed By: #### CAMILLE WEEMS MDIFF #### [place] [address] [address] [place], [place] RBC (Bld) [#/Vol] 4.65 10*6/uL Normal 3.80-5.20 [facility] Comment on above: Performed By: #### CAMILLE WEEMS MDIFF #### [place] [address] [address] [place], [place] WBC (Bld) [#/Vol] 6.4 10*3/uL Normal 3.6-10.7 [facility] Comment on above: Performed By: #### CAMILLE WEEMS MDIFF #### [place] [address] [address] [place], [place] Basic Metabolic Panelon 07-1 Calcium [Mass/Vol] 9.1 mg/dL Normal 8.4-10.4 [facility] Comment on above: Performed By: #### CAMILLE WEEMS MDIFF #### [place] [address] [address] [place], [place] Anion gap [Moles/Vol] 9 mmol/L Normal 3-13 [facility] Comment on above: Performed By: #### CAMILLE WEEMS MDIFF #### [facility] [address] [place], [place] CO2 [Moles/Vol] 27 mmol/L Normal 22-30 [facility] Comment on above: Performed By: #### CAMILLE WEEMS MDIFF #### [facility] [address] [place], [place] Creatinine [Mass/Vol] 0.49 mg/dL Low 0.52-1.25 [facility] Comment on above: Performed By: #### CAMILLE WEEMS MDIFF #### [facility] [address] [place], [place] eGFR OTHER > 90.0 Normal >60 [facility] Comment on above: Result Comment: KDIG O [...] Performed By: #### CAMILLE WEEMS MDIFF #### [facility] [address] [place], [place] GFR/1.73 sq M.predicted among blacks MDRD (S/P/Bld) [Vol rate/Area] mL/min/{1.73_m2} Normal >60 [facility] Comment on above: Performed By: #### CAMILLE WEEMS MDIFF #### [facility] [address] [place], [place] Glucose [Mass/Vol] 88 mg/dL Normal 70-100 [facility] Comment on above: Performed By: #### CAMILLE WEEMS MDIFF #### [facility] [address] [place], [place] Urea nitrogen [Mass/Vol] 9 mg/dL Normal 9-20 [facility] Comment on above: Performed By: #### CAMILLE WEEMS MDIFF #### [place] [address] [address] [place] Chloride [Moles/Vol] 106 mmol/L Normal 98-107 [facility] Comment on above: Performed By: #### CAMILLE WEEMS MDIFF #### [address] [address] [address] [place], [place] Potassium [Moles/Vol] 4.2 mmol/L Normal 3.5-5.1 [facility] Comment on above: Performed By: #### CAMILLE WEEMS MDIFF #### [address] [address] [address] [place], [place] Sodium [Moles/Vol] 143 mmol/L Normal 135-145 [facility] Comment on above: Performed By: #### CAMILLE WEEMS MDIFF #### [address] [address] [address] [place], [place] Hemogram w/ Autodiffon 10-27 Abs Baso Cnt 0.1 10*3/uL Normal 0.0-0.2 [facility] Comment on above: Performed By: #### CAMILLE WEEMS MDIFF #### [address] [address] [address] [place], [place] Abs Neutrophile Cnt 3.0 10*3/uL Normal 1.8-7.0 [facility] Comment on above: Performed By: #### CAMILLE WEEMS MDIFF #### [address] [address] [address] [place], [place] Basophils/100 WBC (Bld) 2.4 % High 0.0-2.0 [facility] Comment on above: Performed By: #### CAMILLE WEEMS MDIFF #### [address] [address] [address] [place], [place] Eosinophils (Bld) [#/Vol] 0.2 10*3/uL Normal 0.0-0.5 [facility] Comment on above: Performed By: #### CAMILLE WEEMS MDIFF #### [address] [address] [place], [place] Eosinophils/100 WBC (Bld) 3.2 % Normal 1.0-6.0 [facility] Comment on above: Performed By: #### CAMILLE WEEMS MDIFF #### [address] [address] [place], [place] Erythrocyte distribution width (RBC) [Ratio] 26.6 % High 11.5-14.5 [facility] Comment on above: Performed By: #### CAMILLE WEEMS MDIFF #### [address] [address] [place], [place] Granulocytes/100 WBC (Bld) 53.9 % Normal 40.0-80.0 [facility] Comment on above: Performed By: #### CAMILLE WEEMS MDIFF #### [address] [address] [place], [place] Hematocrit (Bld) [Volume fraction] 26.2 % Low 35.0-47.0 [facility] Comment on above: Performed By: #### CAMILLE WEEMS MDIFF #### [address] [address] [place], [place] Hemoglobin (Bld) [Mass/Vol] 7.9 g/dL Low 11.7-16.0 [facility] Comment on above: Performed By: #### CAMILLE WEEMS MDIFF #### [address] Lymphocytes (Bld) [#/Vol] 1.8 10*3/uL Normal 1.0-4.3 [facility] Comment on above: Performed By: #### B CAMILLE SWAIN MDIFF #### [address] [address] [address] [place], [place] Lymphocytes/100 WBC (Bld) 32.7 % Normal 20.0-40.0 [facility] Comment on above: Performed By: #### B CAMILLE SWAIN MDIFF #### [address] [address] [address] [place], [place] MCH (RBC) [Entitic mass] 18.0 pg Low 26.0-34.0 [facility] Comment on above: Performed By: #### B CAMILLE SWAIN MDIFF #### [address] [address] [address] [place], [place] MCHC 30.0 % Low 32.0-36.0 [facility] Comment on above: Performed By: #### B CAMILLE SAWIN MDIFF #### [address] [address] [place], [place] MCV (RBC) [Entitic vol] 60.0 fL Low 79.0-98.0 [facility] Comment on above: Performed By: #### B CAMILLE SWAIN MDIFF #### [address] Monocytes (Bld) [#/Vol] 0.4 10*3/uL Normal 0.0-0.8 [facility] Comment on above: Performed By: #### B CAMILLE SWAIN MDIFF #### [address] [address] [place], [place] Monocytes/100 WBC (Bld) 7.8 % Normal 2.0-10.0 [facility] Comment on above: Performed By: #### B CAMILLE SWAIN MDIFF #### [address] [address] [place], [place] Platelet mean volume (Bld) [Entitic vol] 8.5 fL Normal 7.4-12.4 [facility] Comment on above: Result Comment: MPV is a calculated measurement using platelet volume ratio. Performed By: #### B CAMILLE SWAIN MDIFF #### [facility] [address] [place], [place] Platelets (Bld) [#/Vol] 276 10*3/uL Normal 140-440 [facility] Comment on above: Performed By: #### CAMILLE WEEMS MDIFF #### [address] [address] [address] [place], [place] RBC (Bld) [#/Vol] 4.37 10*6/uL Normal 3.80-5.20 [facility] Comment on above: Performed By: #### CAMILLE WEEMS MDIFF #### [address] [address] [address] [place], [place] WBC (Bld) [#/Vol] 5.5 10*3/uL Normal 3.6-10.7 [facility] Comment on above: Performed By: #### CAMILLE WEEMS MDIFF #### [address] [address] [address] [place], [place] Basic Metabolic Panelon 07-04 18-2021 Calcium [Mass/Vol] 8.7 mg/dL Normal 8.4-10.4 [facility] Comment on above: Performed By: #### CAMILLE WEEMS MDIFF #### [address] [place] [address] [address] [place], [place] Anion gap [Moles/Vol] 7 mmol/L Normal 3-13 [facility] Comment on above: Performed By: #### CAMILLE WEEMS MDIFF #### [address] [place] [address] [address] [place], [place] CO2 [Moles/Vol] 26 mmol/L Normal 22-30 [facility] Comment on above: Performed By: #### CAMILLE WEEMS MDIFF #### [address] [address] [address] [place], [place] Creatinine [Mass/Vol] 0.52 mg/dL Normal 0.52-1.25 [facility] Comment on above: Performed By: #### CAMILLE WEEMS MDIFF #### [address] [address] [address] [place], [place] eGFR OTHER > 90.0 Normal >60 [facility] Comment on above: Result Comment: KDIG O [...] Performed By: #### CAMILLE WEEMS MDIFF #### [address] [address] [address] [place], [place] GFR/1.73 sq M.predicted among blacks MDRD (S/P/Bld) [Vol rate/Area] mL/min/{1.73_m2} Normal >60 [facility] Comment on above: Performed By: #### CAMILLE WEEMS MDIFF #### [address] [place] [address] [address] [place], [place] Glucose [Mass/Vol] 92 mg/dL Normal 70-100 [facility] Comment on above: Performed By: #### CAMILLE WEEMS MDIFF #### [address] [place] [address] [address] [place], [place] Urea nitrogen [Mass/Vol] 10 mg/dL Normal 9-20 [facility] Comment on above: Performed By: #### CAMILLE WEEMS MDIFF #### [address] [place] [address] [address] [place], [place] Chloride [Moles/Vol] 108 mmol/L High 98-107 [facility] Comment on above: Performed By: #### CAMILLE WEEMS MDIFF #### [address] [place] [address] [address] [place], [place] Potassium [Moles/Vol] 3.9 mmol/L Normal 3.5-5.1 [facility] Comment on above: Performed By: #### CAMILLE WEEMS MDIFF #### [address] [place] [address] [place], [place] Sodium [Moles/Vol] 141 mmol/L Normal 135-145 [facility] Comment on above: Performed By: #### CAMILLE WEEMS MDIFF #### [address] [place] [address] [address] [place], [place] Hemogram w/ Autodiffon 10-26 Abs Baso Cnt 0.0 10*3/uL Normal 0.0-0.2 [facility] Comment on above: Performed By: #### CAMILLE WEEMS MDIFF #### [address] [address] [place], [place] Abs Neutrophile Cnt 1.7 10*3/uL Low 1.8-7.0 [facility] Comment on above: Performed By: #### CAMILLE WEEMS MDIFF #### [address] [address] [place], [place] Basophils/100 WBC (Bld) 0.3 % Normal 0.0-2.0 [facility] Comment on above: Performed By: #### CAMILLE WEEMS MDIFF #### [address] [place] [address] [address] [place], [place] Eosinophils (Bld) [#/Vol] 0.2 10*3/uL Normal 0.0-0.5 [facility] Comment on above: Performed By: #### CAMILLE WEEMS MDIFF #### [address] Eosinophils/100 WBC (Bld) 3.9 % Normal 1.0-6.0 [facility] Comment on above: Performed By: #### CAMILLE WEEMS MDIFF #### [address] [place] [address] [address] [place], [place] Erythrocyte distribution width (RBC) [Ratio] 29.2 % High 11.5-14.5 [facility] Comment on above: Performed By: #### CAMILLE WEEMS MDIFF #### [address] [place] [address] [address] [place], [place] Granulocytes/100 WBC (Bld) 40.2 % Normal 40.0-80.0 [facility] Comment on above: Performed By: #### CAMILLE WEEMS MDIFF #### [address] [place] [address] [address] [place], [place] Hematocrit (Bld) [Volume fraction] 24.4 % Low 35.0-47.0 [facility] Comment on above: Performed By: #### CAMILLE WEEMS MDIFF #### [address] [address] [place], [place] Hemoglobin (Bld) [Mass/Vol] 7.2 g/dL Low 11.7-16.0 [facility] Comment on above: Performed By: #### CAMILLE WEEMS MDIFF #### [address] [address] [address] [place], [place] Lymphocytes (Bld) [#/Vol] 2.0 10*3/uL Normal 1.0-4.3 [facility] Comment on above: Performed By: #### CAMILLE WEEMS MDIFF #### [address] [address] [place], [place] Lymphocytes/100 WBC (Bld) 47.8 % High 20.0-40.0 [facility] Comment on above: Performed By: #### CAMILLE WEEMS MDIFF #### [address] [address] [address] [place], [place] MCH (RBC) [Entitic mass] 17.9 pg Low 26.0-34.0 [facility] Comment on above: Performed By: #### CAMILLE WEEMS MDIFF #### [address] [place] [address] [address] [place], [place] MCHC 29.7 % Low 32.0-36.0 [facility] Comment on above: Performed By: #### B CAMILLE SWAIN MDIFF #### [facility] [address] [place], [place] MCV (RBC) [Entitic vol] 60.2 fL Low 79.0-98.0 [facility] Comment on above: Performed By: #### B CAMILLE SWAIN MDIFF #### [facility] [address] [place], [place] Monocytes (Bld) [#/Vol] 0.3 10*3/uL Normal 0.0-0.8 [facility] Comment on above: Performed By: #### B CAMILLE SWAIN MDIFF #### [facility] [address] [place], [place] Monocytes/100 WBC (Bld) 7.8 % Normal 2.0-10.0 [facility] Comment on above: Performed By: #### B CAMILLE SWAIN MDIFF #### [address] [place] [address] [address] [place], [place] Platelet mean volume (Bld) [Entitic vol] 8.4 fL Normal 7.4-12.4 [facility] Comment on above: Result Comment: MPV is a calculated measurement using platelet volume ratio. Performed By: #### B CAMILLE SWAIN MDIFF #### [facility] [address] [place], [place] Platelets (Bld) [#/Vol] 248 10*3/uL Normal 140-440 [facility] Comment on above: Performed By: #### B CAMILLE SWAIN MDIFF #### [facility] [address] [place], [place] RBC (Bld) [#/Vol] 4.05 10*6/uL Normal 3.80-5.20 [facility] Comment on above: Performed By: #### B CAMILLE SWAIN MDIFF #### [address] [place] [address] [address] [place], [place] WBC (Bld) [#/Vol] 4.2 10*3/uL Normal 3.6-10.7 [facility] Comment on above: Performed By: #### CAMILLE WEEMS MDIFF #### [address] [place] [address] Leukodepleted Red Cellson Leukodepleted Red Cells Leukodepleted Red Cells: [id number] transfused 10/25/21 22:59 ERR Unit Blood Type: O Unit Blood Rh: NEG Blood Product Code: LQ1 Unit Number: [id number] Unit Status: transfused Barcoded Unit Number: =[id number] Barcoded Product Code: = Barcoded ABO/Rh: =%9500 Unit Expiration: Unit Volume Transfused: 300 Unit Transfusion Start Date/Time: Normal [facility] Comment on above: Performed By: #### CAMILLE WEEMS MDIFF #### [address] [place] [address] [place] [id number] RBC Morphologyon 10-26-2021 Anisocytosis Ql (Bld) Slight Normal [facility] Comment on above: Performed By: #### CAMILLE WEEMS MDIFF #### [address] [place] [address] Hypochromia Moderate Normal [facility] Comment on above: Performed By: #### CAMILLE WEEMS MDIFF #### [address] [place] [address] Microcytosis Slight Normal [facility] Comment on above: Performed By: #### CAMILLE WEEMS MDIFF #### [address] [place] [address] Ovalocytes Slight Normal [facility] Comment on above: Performed By: #### CAMILLE WEEMS MDIFF #### [address] [address] [place] [address] Poikilocytosis Moderate Normal [facility] Comment on above: Performed By: #### CAMILLE WEEMS MDIFF #### [address] [place] [address] [place], [place] RBC morphology finding Nom (Bld) ABNORMAL Normal [facility] Comment on above: Performed By: #### CAMILLE WEEMS MDIFF #### [facility] [address] [place], [place] Tear Drop Forms Slight Normal [facility] Comment on above: Performed By: #### CAMILLE WEEMS MDIFF #### [facility] [address] [place], [place] Comp Metabolic Panelon 10-25 Calcium [Mass/Vol] 9.5 mg/dL Normal 8.4-10.4 [facility] Comment on above: Performed By: #### CAMILLE WEEMS MDIFF #### [facility] [address] [place], [place] Glucose [Mass/Vol] 88 mg/dL Normal 70-100 [facility] Comment on above: Performed By: #### CAMILLE WEEMS MDIFF #### [address] [place] [address] [place], [place] ALP [Catalytic activity/Vol] 86 U/L Normal 38-126 [facility] Comment on above: Performed By: #### CAMILLE WEEMS MDIFF #### [address] [place] [address] [place], [place] ALT [Catalytic activity/Vol] 30 U/L Normal 0-34 [facility] Comment on above: Result Comment: The ALT test is performed by an updated assay method. Please note that the reference intervals have been changed and are now sex specific. Performed By: #### CAMILLE WEEMS MDIFF #### [facility] [address] [place], [place] Anion gap [Moles/Vol] 10 mmol/L Normal 3-13 [facility] Comment on above: Performed By: #### CAMILLE WEEMS MDIFF #### [facility] [address] [place], [place] AST [Catalytic activity/Vol] 70 U/L High 15-46 [facility] Comment on above: Performed By: #### CAMILLE WEEMS MDIFF #### [address] Bilirubin [Mass/Vol] 0.5 mg/dL Normal 0.2-1.3 [facility] Comment on above: Performed By: #### B CAMILLE SWAIN MDIFF #### [address] CO2 [Moles/Vol] 23 mmol/L Normal 22-30 [facility] Comment on above: Performed By: #### CAMILLE WEEMS MDIFF #### [address] Creatinine [Mass/Vol] 0.57 mg/dL Normal 0.52-1.25 [facility] Comment on above: Performed By: #### CAMILLE WEEMS MDIFF #### [address] eGFR OTHER > 90.0 Normal >60 [facility] Comment on above: Result Comment: KDIG O [...] Performed By: #### CAMILLE WEEMS MDIFF #### [address] GFR/1.73 sq M.predicted among blacks MDRD (S/P/Bld) [Vol rate/Area] mL/min/{1.73_m2} Normal >60 [facility] Comment on above: Performed By: #### B BRYNN HEMDF, MDIFF #### [facility] [address] [place], [place] Protein [Mass/Vol] 7.6 g/dL Normal 6.3-8.2 [facility] Comment on above: Performed By: #### CAMILLE WEEMS MDIFF #### [facility] [address] [place], [place] Urea nitrogen [Mass/Vol] 10 mg/dL Normal 9-20 [facility] Comment on above: Performed By: #### B CAMILLE SWAIN MDIFF #### [address] [address] [place], [place] Potassium [Moles/Vol] 3.9 mmol/L Normal 3.5-5.1 [facility] Comment on above: Performed By: #### CAMILLE WEEMS MDIFF #### [address] [place], [place] Sodium [Moles/Vol] 139 mmol/L Normal 135-145 [facility] Comment on above: Performed By: #### CAMILLE WEEMS MDIFF #### [address] [place], [place] Albumin [Mass/Vol] 4.5 g/dL Normal 3.5-5.0 [facility] Comment on above: Performed By: #### CAMILLE WEEMS MDIFF #### [address] [place], [place] Chloride [Moles/Vol] 105 mmol/L Normal 98-107 [facility] Comment on above: Performed By: #### CAMILLE WEEMS MDIFF #### [address] [place], [place] Drugs of Abuseon 10-25-2021 Amphetamines, Ur Positive Normal [facility] Comment on above: Performed By: #### C OVAG, DRGA4, FENTU #### [address] [place], [place] Opiates, Ur Positive Normal [facility] Comment on above: Performed By: #### C OVAG, DRGA4, FENTU #### [facility] [address] [facility], [place] Phencyclidine (PCP), Ur Negative Normal [facility] Comment on above: Result Comment: The expected [...] By: #### C OVAG, DRGA4, FENTU #### [address] [place] [facility], [place] Methadone, Ur Negative Normal [facility] Comment on above: Performed By: #### C OVAG, DRGA4, FENTU #### [address] [place] [facility], [place] Barbiturates, Ur Negative Normal [facility] Comment on above: Performed By: #### C OVAG, DRGA4, FENTU #### [address] [place] [facility], [place] Cocaine, Ur Negative Normal [facility] Comment on above: Performed By: #### C OVAG, DRGA4, FENTU #### [address] [place] [facility], [place] Benzodiazepines, Ur Negative Normal [facility] Comment on above: Performed By: #### C OVAG, DRGA4, FENTU #### [address] [place] [facility], [place] Oxycodone/Oxymorphine, Ur Positive Normal [facility] Comment on above: Performed By: #### C OVAG, DRGA4, FENTU #### [address] [place], [place] Ethanol Serum/Plasmaon 10-25 Ethanol-Serum/Plasma < 0.010 Normal 0.000-0 .01 0 [facility] Comment on above: Result Comment: NOTE : This result is for medical treatment only. Analysis performed using non-forensic procedures. Performed By: #### B CAMILLE SWAIN MDIFF #### [facility] [address] [place], [place] Fecal Occult,Stool Single Sp econ 10-25-2021 Fecal Occult,Stool Single Spec Negative Normal Negative [facility] Comment on above: Performed By: #### B CAMILLE SWAIN MDIFF #### [address] [place], [place] Fentanyl Screen, Urineon Fentanyl Screen, Urn Negative Normal Negative [facility] Comment on above: Result Comment: Fent anyl has been screened for by Immunoassay at a 1 ng/ml threshold. POSITIVE results are not confirmed by a more specific alternative method unless requested. If confirmation is needed, request confirmation under separate order. NOTE: These results are for medical treatment only. Analysis performed using non-forensic procedures. Performed By: #### C OVAG, DRGA4, FENTU #### [address] [place], [place] Ferritinon 10-25-2021 Ferritin [Mass/Vol] 3 ng/mL Low 6-137 [facility] Comment on above: Performed By: #### B CAMILLE SWAIN MDIFF #### [facility] [address] [place], [place] Ferritin [Mass/Vol] 3 ng/mL Low 6-137 [facility] Comment on above: Performed By: #### F EIBC, RTCS, B12, FERR3, FOLT3 #### [facility] [address] [place], [place] Folateon 10-25-2021 Folate 12.3 ng/mL Normal [facility] Comment on above: Result Comment: >2.8 Performed By: #### B CAMILLE SWAIN MDIFF #### [facility] [address] [place], [place] Folate 13.1 ng/mL Normal [facility] Comment on above: Result Comment: >2.8 Performed By: #### CAMILLE WEEMS MDIFF #### [address] [place], [place] Hemoglobin AND Hematocriton 10-25-2021 Hematocrit (Bld) [Volume fraction] 22.5 % Low 35.0-47.0 [facility] Comment on above: Performed By: #### H GHCT #### [address] [place], [place] Hemoglobin (Bld) [Mass/Vol] 6.4 g/dL Critically low 11.7-16.0 [facility] Comment on above: Performed By: #### H GHCT #### [address] [place], [place] Hemogram w/ Autodiffon 10-25 Abs Baso Cnt 0.1 10*3/uL Normal 0.0-0.2 [facility] Comment on above: Performed By: #### CAMILLE WEEMS MDIFF #### [address] [place], [place] Abs Neutrophile Cnt 2.8 10*3/uL Normal 1.8-7.0 [facility] Comment on above: Performed By: #### CAMILLE WEEMS MDIFF #### [address] [place], [place] Basophils/100 WBC (Bld) 1.9 % Normal 0.0-2.0 [facility] Comment on above: Performed By: #### CAMILLE WEEMS MDIFF #### [address] [place], [place] Eosinophils (Bld) [#/Vol] 0.2 10*3/uL Normal 0.0-0.5 [facility] Comment on above: Performed By: #### CAMILLE WEEMS MDIFF #### [address] [place], [place] Eosinophils/100 WBC (Bld) 2.7 % Normal 1.0-6.0 [facility] Comment on above: Performed By: #### CAMILLE WEEMS MDIFF #### [address] [place], [place] Erythrocyte distribution width (RBC) [Ratio] 20.3 % High 11.5-14.5 [facility] Comment on above: Performed By: #### CAMILLE WEEMS MDIFF #### [address] [place], [place] Granulocytes/100 WBC (Bld) 40.5 % Normal 40.0-80.0 [facility] Comment on above: Performed By: #### CAMILLE WEEMS MDIFF #### [address] [place], [place] Hematocrit (Bld) [Volume fraction] 23.2 % Low 35.0-47.0 [facility] Comment on above: Performed By: #### CAMILLE WEEMS MDIFF #### [address] [place], [place] Hemoglobin (Bld) [Mass/Vol] 6.4 g/dL Critically low 11.7-16.0 [facility] Comment on above: Performed By: #### CMAILLE WEEMS MDIFF #### [address] [place], [place] Lymphocytes (Bld) [#/Vol] 3.2 10*3/uL Normal 1.0-4.3 [facility] Comment on above: Performed By: #### CAMILLE WEEMS MDIFF #### [address] [place], [place] Lymphocytes/100 WBC (Bld) 47.2 % High 20.0-40.0 [facility] Comment on above: Performed By: #### CAMILLE WEEMS MDIFF #### [address] [place], [place] MCH (RBC) [Entitic mass] 14.9 pg Low 26.0-34.0 [facility] Comment on above: Performed By: #### B CAMILLE SWAIN MDIFF #### [facility] [address] [place], [place] MCHC 27.4 % Low 32.0-36.0 [facility] Comment on above: Performed By: #### B CAMILLE SWAIN MDIFF #### [address] [place], [place] MCV (RBC) [Entitic vol] 54.5 fL Low 79.0-98.0 [facility] Comment on above: Performed By: #### B CAMILLE SWAIN MDIFF #### [address] [place], [place] Monocytes (Bld) [#/Vol] 0.5 10*3/uL Normal 0.0-0.8 [facility] Comment on above: Performed By: #### CAMILLE WEEMS MDIFF #### [address] [place], [place] Monocytes/100 WBC (Bld) 7.7 % Normal 2.0-10.0 [facility] Comment on above: Performed By: #### CAMILLE WEEMS MDIFF #### [address] [place], [place] Platelet mean volume (Bld) [Entitic vol] 8.0 fL Normal 7.4-12.4 [facility] Comment on above: Result Comment: MPV is a calculated measurement using platelet volume ratio. Performed By: #### B CAMILLE SWAIN MDIFF #### [address] [place], [place] Platelets (Bld) [#/Vol] 302 10*3/uL Normal 140-440 [facility] Comment on above: Performed By: #### CAMILLE WEEMS MDIFF #### [address] [place], [place] RBC (Bld) [#/Vol] 4.25 10*6/uL Normal 3.80-5.20 [facility] Comment on above: Performed By: #### B CAMILLE SWAIN MDIFF #### [facility] [address] [place], [place] WBC (Bld) [#/Vol] 6.8 10*3/uL Normal 3.6-10.7 [facility] Comment on above: Performed By: #### CAMILLE WEEMS MDIFF #### [facility] [address] [place], [place] Iron AND TIBCon 10-25-2021 Saturation 24 % Normal 15-50 [facility] Comment on above: Performed By: #### B CAMILLE SWAIN MDIFF #### [facility] [address] [place], [place] Total Iron Binding Cap. 399 ug/dL Normal 261-497 [facility] Comment on above: Performed By: #### B CAMILLE SWAIN MDIFF #### [address] [place], [place] Iron, Total 96 ug/dL Normal 37-170 [facility] Comment on above: Performed By: #### B CAMILLE SWAIN MDIFF #### [address] [place], [place] Saturation 3 % Low 15-50 [facility] Comment on above: Performed By: #### F EIBC, RTCS, B12, FERR3, FOLT3 #### [address] [place], [place] Total Iron Binding Cap. 439 ug/dL Normal 261-497 [facility] Comment on above: Performed By: #### F EIBC, RTCS, B12, FERR3, FOLT3 #### [address] [place], [place] Iron, Total 13 ug/dL Low 37-170 [facility] [facility] Comment on above: Performed By: #### F EIBC, RTCS, B12, FERR3, FOLT3 #### [place] [address] [place], [place] Leukodepleted Red Cellson Leukodepleted Red Cells Leukodepleted Red Cells: [id number] transfused 10/25/21 07:50 ERR Unit Blood Type: O Unit Blood Rh: NEG Blood Product Code: CP1 Unit Number: [id number] Unit Status: transfused Barcoded Unit Number: =[id number] Barcoded Product Code: = Barcoded ABO/Rh: =%9500 Unit Expiration: Unit Volume Transfused: 250 Unit Transfusion Start Date/Time: Normal [facility] Comment on above: Performed By: #### CAMILLE WEEMS MDIFF #### [place] [address] [address] RBC Morphologyon 10-25-2021 Anisocytosis Ql (Bld) Moderate Normal [facility] Comment on above: Performed By: #### CAMILLE WEEMS MDIFF #### [place] [address] [place] [address] Hypochromia Slight Normal [facility] Comment on above: Performed By: #### CAMILLE WEEMS MDIFF #### [place] [address] [place] [address] Microcytosis Moderate Normal [facility] Comment on above: Performed By: #### CAMILLE WEEMS MDIFF #### [place] [address] [place] [address] Ovalocytes Slight Normal [facility] Comment on above: Performed By: #### CAMILLE WEEMS MDIFF #### [place] [address] [place] [address] Poikilocytosis Slight Normal [facility] Comment on above: Performed By: #### CAMILLE WEEMS MDIFF #### [place] [address] [place] [address] RBC morphology finding Nom (Bld) ABNORMAL Normal [facility] Comment on above: Performed By: #### CAMILLE WEEMS MDIFF #### [place] [address] [place] [address] Tear Drop Forms Slight Normal [facility] Comment on above: Performed By: #### B CAMILLE SWAIN MDIFF #### [place] [address] [address] [place], [place] Retic Count(%)on 10-25-2021 Retic Count(%) 1.4 Normal [facility] Comment on above: Result Comment: Newb orn < 5% Adults 0.5 - 1.5% Performed By: #### F EIBC, RTCS, B12, FERR3, FOLT3 #### [place] [address] [address] [place], [place] SARS-CoV-2 Antigenon 022 SARS-CoV-2 Antigen Negative Normal Negative [facility] Comment on above: Result Comment: A negative result does not rule out the possibility of SARS-CoV-2 infection. NAAT-based methods should be considered for symptomatic patients presenting greater than seven days after onset of symptoms. Method: Lateral flow immunoassay. Fact sheets for healthcare providers and patients can be found at the following sites: https://www.fda.gov/media/181879/download https://www.fda.gov/media/943465/download Performed By: #### C OVAG, DRGA4, FENTU #### [place] [address] [address] [place], [place] TS GELon 10-25-2021 TS GEL ABO Group: O Rh, Gel: NEG Antibody Screen Gel: NEG Normal [facility] Comment on above: Performed By: #### B CAMILLE SWAIN MDIFF #### [place] [address] [address] [place], [place] Vitamin B12on 10-25-2021 Cobalamin (Vitamin B12) [Mass/Vol] 268 pg/mL Normal 239-931 [facility] Comment on above: Performed By: #### CAMILLE WEEMS MDIFF #### [place] [address] [address] [place], [place] Cobalamin (Vitamin B12) [Mass/Vol] 358 pg/mL Normal 239-931 [facility] Comment on above: Performed By: #### B CAMILLE SWAIN MDIFF #### [place] [address] [address] [place], [place] hCG Qual Pregon 10-25-2021 hCG Qual Preg Negative Normal [facility] Comment on above: Result Comment: Refe rence Range: NEGATIVE Effective 06/28/2019, the reference interval for the qualitative test has been updated. This test detects hCG at concentrations of 10 mIU/L or greater in serum. Performed By: #### B MP3M, HEMDF, MDIFF #### [facility] [address] [place] [address] ED Provider Noteon 2 ED Provider Note [...] Is supposed to get iron infusions at [facility] but has not had one since 2016 due to drug use. Does have history of gastric ulcer. Denies current dark or bloody stools, or GI sx. Suicide attempt in 2018 (took 150 seroquel). Had suicidal thoughts yesterday but denies plan or current SI. States that she and her boyfriend went to longterm in July, and its been hard because [...] Sexual Activi (more content not included)... Normal [facility] ED Provider Note Emergency Department Encounter ACH [...] Solutions Preeti Garsia, DO 10/25/21 0424 Normal [facility] GC/Chlamydia Amp, Uron 01-30 Chlamydia Amplif, Ur Normal [facility] Comment on above: Result Comment: Nega tive for For screening asymptomatic women, a vaginal swab specimen (APTIMA vaginal swab 260427) is optimal. Urine specimens have reduced sensitivity for Chlamydia trachomatis or Neisseria gonorrhoeae infection in female patients without symptoms. This test was developed and its performance characteristics determined by [facility] ([facility]). It has not been cleared or approved by the FDA. RT [facility] is regulated under CLIA as qualified to perform high complexity testing. This test is used for clinical purposes. It should not be regarded as investigational or for research. Chlamydia For screening asymptomatic women, a vaginal swab specimen (APTIMA vaginal swab 632240) is optimal. Urine specimens have reduced sensitivity for Chlamydia trachomatis or Neisseria gonorrhoeae infection in female patients without symptoms. This test was developed and its performance characteristics determined by [facility] ([facility]). It has not been cleared or approved by the FDA. RT [facility] is regulated under CLIA as qualified to perform high complexity testing. This test is used for clinical purposes. It should not be regarded as investigational or for research. trachomatis by For screening asymptomatic women, a vaginal swab specimen (APTIMA vaginal swab 872684) is optimal. Urine specimens have reduced sensitivity for Chlamydia trachomatis or Neisseria gonorrhoeae infection in female patients without symptoms. This test was developed and its performance characteristics determined by [facility] ( [facility]). It has not been cleared or approved by the FDA. RT [facility] is regulated under CLIA as qualified to perform high complexity testing. This test is used for clinical purposes. It should not be regarded as investigational or for research. amplification. For screening asymptomatic women, a vaginal swab specimen (APTIMA vaginal swab 283158) is optimal. Urine specimens have reduced sensitivity for Chlamydia trachomatis or Neisseria gonorrhoeae infection in female patients without symptoms. This test was developed and its performance characteristics determined by [facility] ([facility]). It has not been cleared or approved by the FDA. [facility] is regulated under CLIA as qualified to perform high complexity testing. This test is used for clinical purposes. It should not be regarded as investigational or for research. Performed By: #### U GCCT #### [facility] [address] [place], [place] [address] GC Amplification, Ur NGNEG Normal [facility] Comment on above: Performed By: #### U GCCT #### [facility] [address] [place], [place] [address] GC/Chlamydia Amp, Uron 09-28 Chlamydia Amplif, Ur Normal [facility] Comment on above: Result Comment: Nega tive for For screening asymptomatic women, a vaginal swab specimen (APTIMA vaginal swab 742884) is optimal. Urine specimens have reduced sensitivity for Chlamydia trachomatis or Neisseria gonorrhoeae infection in female patients without symptoms. This test was developed and its performance characteristics determined by [facility] ([facility]). It has not been cleared or approved by the FDA. [facility] is regulated under CLIA as qualified to perform high complexity testing. This test is used for clinical purposes. It should not be regarded as investigational or for research. Chlamydia For screening asymptomatic women, a vaginal swab specimen (APTIMA vaginal swab 182144) is optimal. Urine specimens have reduced sensitivity for Chlamydia trachomatis or Neisseria gonorrhoeae infection in female patients without symptoms. This test was developed and its performance characteristics determined by [facility] ([facility]). It has not been cleared or approved by the FDA. [facility] is regulated under CLIA as qualified to perform high complexity testing. This test is used for clinical purposes. It should not be regarded as investigational or for research. trachomatis by For screening asymptomatic women, a vaginal swab specimen (APTIMA vaginal swab 215483) is optimal. Urine specimens have reduced sensitivity for Chlamydia trachomatis or Neisseria gonorrhoeae infection in female patients without symptoms. This test was developed and its performance characteristics determined by [facility] ([facility]). It has not been cleared or approved by the FDA. [facility] is regulated under CLIA as qualified to perform high complexity testing. This test is used for clinical purposes. It should not be regarded as investigational or for research. amplification. For screening asymptomatic women, a vaginal swab specimen (APTIMA vaginal swab 248772) is optimal. Urine specimens have reduced sensitivity for Chlamydia trachomatis or Neisseria gonorrhoeae infection in female patients without symptoms. This test was developed and its performance characteristics determined by [facility] ([facility]). It has not been cleared or approved by the FDA. [facility] is regulated under CLIA as qualified to perform high complexity testing. This test is used for clinical purposes. It should not be regarded as investigational or for research. Performed By: #### U GCCT #### [facility] [address] [place], [place] [id number] GC Amplification, Ur NGNEG Normal [facility] Comment on above: Performed By: #### U GCCT #### [facility] [address] [place], [place] [id number] MINDYOVherman 03-27-2018 CNOV Office Visit (AGPLAHWW) ---------ZACK JAMESON ([id number]) 1990 FDate Time Provider Djtfrleoym26/11/18 12:00 PM RALPH SIERRA During your visit [...] and Sheagrees to proceed with the operation.Shaniqua aGrciaribe Attestation Statement:Scribe Statement: I, Hien Christy LPN, pan scribing for, and in thepresence ofRalph Sierra MD.Scribe: PRASAD Andradelinician Attestation Statement: The information in this document, created bythe medical professionals for me, accurately reflects the services I [...] to improve.Follow-up and Disposition History RecordedEncounter Number: [id number] Status:Closed by RALPH SIERRA MD on 03/27/18 [facility] PROGRESSon 03-27-2018 Protein mass conc HNO ID: [id number] thor: Ralph SierraSer: (none)Author Type: PhysicianType: Progress [...] agrees to proceed with the operation.Ralph Sierra [facility] Attestation Statement:Scribe Statement: I, Hien Christy LPN, pan scribing for, and in thepresence ofRalph Sierra MD.Scribe: PRASAD Andradelinician Attestation Statement: The information in this document, createdby the medical professionals for me, accurately reflects the services Ipersonally performed and the decisions made by me. I have reviewed andapproved this document for accuracy.Ralph Sierra MD [facility] CNCOon 11-28-2017 CNCO Letter Text Ralph Sierra MD, [facility] [address] [place] [address], [address]: [phone] ([phone]) Jmquid 2017[facility] Insurance Company: [facility] CenterInsured: Zack [facility]Asc[facility] Number: [id number] Number: [id number] Whom It May Concern,I am writing on [...] am confident you will agree that CPT 21037 withdiagnosis codes E65 and L30.4 is indicated and medically necessary for thispatient. This would be done as an outpatient procedure at [facility] TAX ID#: [id number] NPI#[id number]. Please see the enclosedphotographs for further details.If you have any further questions, please feel free to contact my office.Thank you in advance for your immediate attention to this request.Sincerely,Ralph Sierra MDNPI: [id number] NPI: [id number] ID: [id number] [facility] 11-14-2017 OV Office Visit (AGPLAHWW) ---------ZACK JAMESON ([id number]) 1990 [facility] Time Provider Department11/14/17 2:30 PM RALPH SIERRA [...] 14, 2017Patient: Zackruben Jameson : 1990 SSN: [id number] Numbers: [phone] (home)Name of Doctor: Ralph Sierra MDAnesthesia: General Tap Block: NOPatient Status: OutpatientCPT Code(s): 46852Hyjplsvf: ACHTotal Est. Total Time: 4Diagnosis/ one ICD10 code: (E65) Pannus, abdominal (primary encounterdiagnosis)Procedur e(s): panniculectomyImplants or Special Orders:Case #:Scheduled with/date:Date/Time of Surgery:Arrival Time:Pre-testing Date:Consent Faxed:Packet Mailed:MRSA: Yes, MRSA InfectionSmoking: yesRequired to stop:yesDVT-PE: negative Occurrence:Blood Thinners:[place] of medication(s):Medication Allergies: ALLERGIESNo Known AllergiesPatient Weight: Ht 5' 1 (1.55m)Medical or Cardiac Clearance needed: NOPain Management Contract: NoPreferred Post OP Pain Med: Percocet, NoneConsent Signed: YesInsurance Company: [facility] community plan12/05/17 Loaded precert case with Erum Johnson ref # [id number] date span is12/25/17-03/25/18 nurse to contact mo for clinical [place]12/05/17 Faxed clinical with OV, Dr. Jhon layton, Dr. Yue layton, 2016 PCP notes,emailed photos [place]12/08/17 Approval [facility] auth # [id number] good from 12/25/17-03/25/18 fax received TNClinical person [...] 14, 2017Patient: Zack Jameson : 1990 SSN: [id number] Numbers: [phone] (home)Name of Doctor: Ralph Sierra MDAnesthesia: General Tap Block: NOPatient Status: OutpatientCPT Code(s): 49178Dfgmfbkz: ACHTotal Est. Total Time: 4Diagnosis/ one ICD10 code: (E65) Pannus, abdominal (primary encounterdiagnosis)Procedur e(s): panniculectomyImplants or Special Orders:Case #:Scheduled with/date:Date/Time of Surgery:Arrival Time:Pre-testing Date:Consent Faxed:Packet Mailed:MRSA: Yes, MRSA InfectionSmoking: yesRequired to stop:yesDVT-PE: negative Occurrence:Blood Thinners:[place] of medication(s):Medication Allergies: ALLERGIESNo Known AllergiesPatient Weight: Ht 5' 1 (1.55m)Medical or Cardiac Clearance needed: NOPain Management Contract: NoPreferred Post OP Pain Med: Percocet, NoneConsent Signed: YesInsurance Company: [facility] community plan12/05/17 Loaded precert case with Erum Johnson ref # [id number] date span is12/25/17-03/25/18 nurse to contact me for clinical [place]12/05/17 Faxed clinical with OV, Dr. Yue Ballard, 2016 PCPnotes, emailed photos [place]12/08/17 Approval [facility] auth # [id number] good from 12/25/17-03/25/18 faxreceived TNClinical person completing sheet: amandaDisposition: Return if symptoms worsen or fail to improve.Follow-up and Disposition History RecordedEncounter Number: [id number] Status:Closed by RALPH SIERRA MD on 11/14/17 [facility] PROGRESSon 11-14-2017 Protein mass conc HNO ID: [id number] thor: Ralph SierraService: (none)Author Type: PhysicianType: Progress [...] proceed with the operation.Ralph Sierra MD Normal [facility] ABORH Captureon 02-23-2017 ABORH Capture Negative Normal [facility] Antibody 3 Cell Scrn Capture on 02-23-2017 Antibody 3 Cell Scrn Capture Negative Normal [facility] CBC With Platelet and Differ entialon 02-23-2017 Anisocytosis presence 2+ Normal [facility] Ovalocytes 1+ Normal [facility] Poikilocytosis 1+ Normal [facility] Basophils Auto #/vol (Bld) 0.05 E9/L Normal 0.00-0.20 [facility] Basophils/100 WBC Auto (Bld) 0.7 % Normal 0.0-2.0 [facility] Eosinophils 0.15 E9/L Normal 0.05-0.50 [facility] Eosinophils/100 leukocytes 2.0 % Normal 0.0-6.0 [facility] Erythrocyte distribution width Auto Ratio (RBC) 20.1 fL High 11.5-15.0 [facility] Erythrocytes (RBC) 4.15 E12/L Normal 3.50-5.50 [facility] Granulocytes/100 WBC (Bld) 0.3 % Normal 0.0-5.0 [facility] Granulocytes/100 WBC (Bld) 0.02 E9/L Normal [facility] Hematocrit (HCT) 29.6 % Low 34.0-48.0 [facility] Hemoglobin mass conc (Bld) 8.9 g/dL Low 11.5-15.5 [facility] Lymphocytes 2.56 E9/L Normal 1.50-4.00 [facility] Lymphocytes/100 leukocytes 33.4 % Normal 20.0-42.0 [facility] MCH 21.4 pg Low 26.0-35.0 [facility] MCHC mass conc (RBC) 30.1 % Low 32.0-34.5 [facility] MCV 71.3 fL Low 80.0-99.9 [facility] Monocytes 0.57 E9/L Normal 0.10-0.95 [facility] Monocytes/100 leukocytes 7.4 % Normal 2.0-12.0 [facility] Neutrophils 4.32 E9/L Normal 1.80-7.30 [facility] Neutrophils/100 leukocytes 56.2 % Normal 43.0-80.0 [facility] Platelet mean volume (PMV) 10.3 fL Normal 7.0-12.0 [facility] Platelets 379 E9/L Normal 130-450 [facility] WBC (Leukocytes) 7.7 E9/L Normal 4.5-11.5 [facility] Chlamydia GC DNA Amplificati onon 02-23-2017 Chlamydia GC DNA Amplification Chlamydia trachomatis DNA Amplification-: Negative for C. Trachomatis rRNAResults should be interpreted in conjunction with otherlaboratory and clinical data available to the clinician.Neisseria gonorrhoeae DNA Amplification-: Negative for N. gonorrhoeae rRNAResults should be interpreted in conjunction with otherlaboratory and clinical data available to the clinician. Normal [facility] Comprehensive Metabolic Pane stephen 02-23-2017 Alanine aminotransferase (ALT) 14 U/L Normal 0-32 [facility] Albumin 4.3 g/dL Normal 3.5-5.2 [facility] Alkaline phosphatase (ALP) 63 U/L Normal 35-104 [facility] Anion gap 12 mmol/L Normal 7-16 [facility] Aspartate aminotransferase (AST) 21 U/L Normal 0-31 [facility] Bilirubin (total) 0.3 mg/dL Normal 0.0-1.2 [facility] Calcium 9.6 mg/dL Normal 8.6-10.2 [facility] Chloride 102 mmol/L Normal 98-107 [facility] CO2 26 mmol/L Normal 22-29 [facility] Creatinine 0.5 mg/dL Normal 0.5-1.0 [facility] eGFR (black) mL/min/{1.73_m2} Normal [facility] eGFR (non-black) mL/min/{1.73_m2} Normal >=60 [facility] Comment on above: Result Comment: Lean Leader shanika Kidney Disease: less than 60 ml/min/1.73 sq.m. Kidney Failure: less than 15 ml/min/1.73 sq.m.Results valid for patients 18 years and older. Glucose mass conc 161 mg/dL High 74-109 [facility] Potassium molar conc 4.0 mmol/L Normal 3.5-5.0 [facility] Protein 7.1 g/dL Normal 6.4-8.3 [facility] Sodium 140 mmol/L Normal 132-146 [facility] Urea nitrogen 8 mg/dL Normal 6-20 [facility] Culture, Urineon 02-23-2017 Culture, Urine Culture, Urine-: Growth not present Normal [facility] ED Noteon 02-23-2017 HIM IP Note OR Slat Grader Normal [facility] HIM IP Note OR Slat Grader Normal [facility] HIM IP Note OR Slat Grader Normal [facility] ED Provider Noteon 7 HIM IP Note OR Slat Grader Normal [facility] HCG Quanton 02-23-2017 HCG Quant 88674.0 mIU/mL High <10 [facility] Comment on above: Result Comment: The TOTAL HCG QUANT test is not intended for anyuse other than assessment of status. Rh Immune Globulinon Rh Immune Globulin RhImmuneGlobulin RVP [id number] issued 1 vial 02/23/17 20:01 Normal [facility] US OB TRANSVAGINALon 017 OB TRANSVAGINAL [...] by:EMY Parksigned by:Heide Leonard MD02/23/17Final result Normal [facility] Urinalysis, reflex to micros copicon 02-23-2017 Bilirubin Ql (U) Negative Normal Negative [facility] Urine, clarity Clear Normal Clear [facility] Urine, color Yellow Normal Straw/Johnson ow [facility] Urine, glucose presence Negative Normal Negative [facility] Urine, hemoglobin presence SMALL Abnormal Negative [facility] Urine, ketones presence Negative Normal Negative [facility] Urine, leukocyte esterase presence Negative Normal Negative [facility] Urine, nitrite presence Negative Normal Negative [facility] Urine, pH 7.0 [pH] Normal 5.0-9.0 [facility] Urine, protein presence Negative Normal Negative [facility] Urine, specific gravity 1.010 Normal 1.005-1.03 0 [facility] Urine, urobilinogen 0.2 {Chilo'U}/dL Normal < 2.0 [facility] Urine Microscopicon 02-24-20 17 Urine, bacteria in sediment NONE Normal [facility] Urine, epithelial cells presence in sediment FEW Normal [facility] Urine, erythrocytes NONE Normal 0-2 [facility] Urine, leukocytes NONE Normal 0-5 [facility] Wet Prep-Medical Purposes On mathur 02-23-2017 Wet Prep Clue Cells None Seen Normal [facility] Wet Prep Source VAGINAL Normal [facility] Wet Prep Trichomonas None Seen Normal [facility] Wet Prep Yeast None Seen Normal [facility] Vital Signs Date Time Vital Sign Value Performing Clinician Britta garibay 11-01-2024 09:24-0400 Body height 152.4 cm Falguni ANDRADE Work Phone: [facility] 11-01-2024 09:24-0400 Body mass index (BMI) [Ratio] 40 kg/m2 Falguni Shanks NP-C Work Phone: [facility] 11-01-2024 09:24-0400 Body temperature 97.6 [degF] Falguni Tannhof LEHR TENDER-C Work Phone: [phone] [place] [address] 11-01-2024 09:24-0400 Body weight 92.98 kg Falguni Shanks LEHR TENDER-C Work Phone: [phone] [place] [address] 11-01-2024 09:24-0400 Diastolic blood pressure 68 mm[Hg] Falguni Aragonf LEHR TENDER-C Work Phone: [phone] [address] 11-01-2024 09:24-0400 Heart rate 73 /min Falguni Shanks LEHR TENDER-C Work Phone: [phone] [address] 11-01-2024 09:24-0400 Respiratory rate 20 /min Falguni Shanks LEHR TENDER-C Work Phone: [phone] [place] [address] 11-01-2024 09:24-0400 SaO2% (BldA) [Mass fraction] 96 % Falguni Aragonf LEHR TENDER-C Work Phone: [phone] [place] [address] 11-01-2024 09:24-0400 Systolic blood pressure 103 mm[Hg] Falguni Shanks LEHR TENDER-C Work Phone: [phone] [place] [address] 05-23-2024 12:03-0500 Body height 152.4 cm Gabi DELEON Work Phone: [facility] 05-23-2024 12:03-0500 Body mass index (BMI) [Ratio] 43.75 kg/m2 Gabi DELEON Work Phone: [facility] 05-23-2024 12:03-0500 Body weight 101.61 kg Gabi DELEON Work Phone: [facility] 05-23-2024 12:03-0500 Diastolic blood pressure 77 mm[Hg] Gabi DELEON Work Phone: [facility] 05-23-2024 12:03-0500 Heart rate 71 /min Gabi DELEON Work Phone: [facility] 05-23-2024 12:03-0500 SaO2% (BldA) [Mass fraction] 97 % Gabi Rosie DELEON Work Phone: [facility] 05-23-2024 12:03-0500 Systolic blood pressure 122 mm[Hg] Gabi Rosie DELEON Work Phone: [facility] 07-25-2023 09:03-0400 Body height 152.4 cm [facility] [address] 07-25-2023 09:03-0400 Body mass index (BMI) [Ratio] 42.85 kg/m2 [facility] [address] 07-25-2023 09:03-0400 Body weight 99.52 kg [facility] [address] 07-25-2023 09:03-0400 Diastolic blood pressure 57 mm[Hg] [facility] [address] 07-25-2023 09:03-0400 Heart rate 85 /min [facility] [address] 07-25-2023 09:03-0400 Respiratory rate 14 /min [facility] [address] 07-25-2023 09:03-0400 SaO2% (BldA) [Mass fraction] 97 % [facility] [address] 07-25-2023 09:03-0400 Systolic blood pressure 127 mm[Hg] [facility] [address] 05-18-2023 13:31-0500 Body height 154.9 cm P. Arlene DO [facility] 05-18-2023 13:31-0500 Body mass index (BMI) [Ratio] 41.42 kg/m2 P. Arlene DO Work Phone: [employer] [facility] 05-18-2023 13:31-0500 Body temperature 97.7 [degF] P. Arlene DO Work Phone: [facility] 05-18-2023 13:31-0500 Body weight 99.43 kg Lan Jacobs DO Work Phone: [facility] 05-18-2023 13:31-0500 Diastolic blood pressure 83 mm[Hg] Lan Jacobs DO Work Phone: [facility] 05-18-2023 13:31-0500 Heart rate 66 /min PMame Jacobs DO Work Phone: [facility] 05-18-2023 13:31-0500 SaO2% (BldA) [Mass fraction] 99 % Lan Jacobs DO Work Phone: [facility] 05-18-2023 13:31-0500 Systolic blood pressure 116 mm[Hg] Lan Jacobs DO Work Phone: [facility] 02-09-2023 14:28-0400 Body height 152.4 cm [facility] 02-09-2023 14:28-0400 Body mass index (BMI) [Ratio] 42.3 kg/m2 [facility] 02-09-2023 14:28-0400 Body temperature 96.6 [degF] [facility] 02-09-2023 14:28-0400 Body weight 98.42 kg [facility] 02-09-2023 14:28-0400 Diastolic blood pressure 75 mm[Hg] [facility] 02-09-2023 14:28-0400 Heart rate 89 /min [facility] 02-09-2023 14:28-0400 Respiratory rate 18 /min [facility] 02-09-2023 14:28-0400 SaO2% (BldA) [Mass fraction] 98 % [facility] 02-09-2023 14:28-0400 Systolic blood pressure 121 mm[Hg] [facility] 01-16-2023 14:35-0400 Body temperature 98.2 [degF] PHYSICIAN [facility] 01-16-2023 14:35-0400 Diastolic blood pressure 83 mm[Hg] PHYSICIAN NO [facility] 01-16-2023 14:35-0400 Heart rate 67 /min PHYSICIAN NO [facility] 01-16-2023 14:35-0400 Respiratory rate 16 /min PHYSICIAN NO [facility] 01-16-2023 14:35-0400 SaO2% (BldA) [Mass fraction] 99 % PHYSICIAN NO [facility] 01-16-2023 14:35-0400 Systolic blood pressure 140 mm[Hg] PHYSICIAN NO [facility] 01-16-2023 09:00-0400 Body weight 94.34 kg PHYSICIAN NO [facility] 01-13-2023 19:30-0400 Body height 152.4 cm PHYSICIAN NO [facility] 10-31-2022 15:45-0400 Reason For Taking VItal Signs AIDA MALONE DO [facility] 10-31-2022 15:27-0400 Blood Pressure Cuff Size AIDA MALONE DO [facility] 10-31-2022 15:27-0400 Blood Pressure Location AIDA MALONE DO [facility] 10-31-2022 15:27-0400 Blood Pressure Method AIDA MALONE DO [facility] 10-31-2022 15:27-0400 Body temperature 98.6 [degF] AIDA Penaloza [facility] 10-31-2022 15:27-0400 Diastolic Blood Pressure Non-Invasive 55 1 AIDA MALONE DO [facility] 10-31-2022 15:27-0400 Heart rate 80 /min AIDA MALONE DO [facility] 10-31-2022 15:27-0400 Mean blood pressure 72 mm[Hg] AIDA Penaloza [facility] 10-31-2022 15:27-0400 Respiratory rate 16 /min AIDA MALONE DO [facility] 10-31-2022 15:27-0400 Systolic Blood Pressure Non-Invasive 125 1 AIDA MALONE DO [facility] 10-31-2022 13:06-0400 Body temperature 97.34 [degF] AIDA MALONE DO [facility] 10-31-2022 13:06-0400 Diastolic Blood Pressure Non-Invasive 78 1 AIDA MALONE DO [address] [place] [address] 10-31-2022 13:06-0400 Heart rate 64 /min AIDA MALONE DO [address] [place] [address] 10-31-2022 13:06-0400 Mean blood pressure 87 mm[Hg] AIDA MALONE DO [address] [place] [address] 10-31-2022 13:06-0400 Respiratory rate 16 /min AIDA MALONE DO [address] [place] [address] 10-31-2022 13:06-0400 Systolic Blood Pressure Non-Invasive 103 1 AIDA MALONE DO [address] [place] [address] 10-31-2022 12:51-0400 Diastolic Blood Pressure Non-Invasive 52 1 AIDA MALONE DO [address] [place] [address] 10-31-2022 12:51-0400 Heart rate 72 /min AIDA MALONE DO [address] [place] [address] 10-31-2022 12:51-0400 Mean blood pressure 66 mm[Hg] AIDA MALONE DO [facility] 10-31-2022 12:51-0400 Respiratory rate 16 /min AIDA MALONE DO [address] [place] [address] 10-31-2022 12:51-0400 Systolic Blood Pressure Non-Invasive 97 1 AIDA MALONE DO [facility] 10-31-2022 12:36-0400 Body temperature 97.34 [degF] AIDA MENA DO [address] [place] [address] 10-31-2022 12:30-0400 Respiratory Rate - Anes 17 br/min AIDA MENA DO [address] [place] [address] 10-31-2022 12:25-0400 Respiratory Rate - Anes 10 br/min AIDA MENA DO [address] [place] [address] 10-31-2022 12:20-0400 Body temperature 96.84 [degF] AIDA MENA DO [address] [place] [address] 10-31-2022 12:20-0400 Respiratory Rate - Anes 10 br/min AIDA MENA DO [address] [place] [address] 10-31-2022 11:20-0400 Heart rate 76 /min AIDA MENA DO [address] [place] [address] 10-31-2022 10:46-0400 Body temperature 98.06 [degF] AIDA ALVAREZERLY DO [address] [place] [address] 10-31-2022 10:46-0400 Heart rate 83 /min AIDA MENA DO [address] [place] [address] 10-31-2022 07:10-0400 Body temperature 98.06 [degF] AIDA MENA DO [address] [place] [address] 10-31-2022 07:10-0400 Heart rate 89 /min AIDA MENA DO [address] [place] [address] 10-31-2022 05:20-0400 Signs/Symptoms Transfusion Reaction AIDA MENA DO [address] [place] [address] 10-31-2022 04:22-0400 Body height 152.4 cm AIDA MALONE DO [address] [place] [address] 10-31-2022 04:22-0400 Body weight 100.2 kg AIDA ALVAREZERLY DO [address] [place] [address] 10-31-2022 04:22-0400 Body weight 43.14 kg/m2 AIDA ALVAREZERLY DO [facility] 10-31-2022 04:20-0400 Signs/Symptoms Transfusion Reaction AIDA MALONE DO [facility] Encounters Encounter Date Encounter Type Care Provider Facility Start: 11-01-2024 End: 11-01-[address] Jersey Zendejas MD [facility] Work Phone: Start: 11-01-2024 End: 11-01-2024 ambulatory Falguni Shanks LEHR TENDER-C Work Phone: [facility] Start: 09-19-2024 End: 09-19-2024 Office outpatient visit [address] [facility] Comment on above: Excess skin of abdom en (Primary Dx); S/P gastric bypass Start: 09-19-2024 ambulatory Lan Rowell [facility] Start: 08-27-2024 End: 08-27-2024 ambulatory Falguni ZIEGLERC Work Phone: [facility] Work Phone: Start: 08-27-2024 End: 08-27-2024 Patient encounter procedure Falguni Shanks NP-C -[facility] Start: 08-27-2024 End: 08-27-2024 ambulatory Falguni Shanks Facility:[facility] Start: 06-26-2024 End: 06-26-2024 ambulatory PREETI AVINA [facility] Start: 05-23-2024 End: 05-23-2024 Office outpatient new 45 minutes Gabi DELEON Work Phone: [facility] Comment on above: Excess skin of abdom en (Primary Dx) Start: 05-23-2024 ambulatory GABI johnsonty:[facility] Start: 05-10-2024 End: 05-10-2024 [facility] Start: 05-10-2024 Encounter for gynecological examination (general) (routine) without abnormal findings MELANIE MOON [facility] Start: 12-19-2023 End: 12-19-2023 ambulatory NAYE RHODES [facility] Start: 12-08-2023 End: 12-08-2023 Emergency department patient visit SHAINA ADLER [facility] Start: 11-01-2023 End: 11-16-2023 ambulatory [facility] Start: 10-25-2023 End: 11-16-2023 ambulatory KEELY Gamino [facility] Start: 10-05-2023 End: 10-16-2023 ambulatory KEELY Gamino [facility] Start: 09-20-2023 End: 09-20-2023 ambulatory AIME [facility] Start: 08-22-2023 End: 08-26-2023 Evaluation and management of inpatient GABI [facility] Start: 08-21-2023 End: 08-22-2023 [facility] Start: 07-25-2023 End: 07-25-2023 Office outpatient new 30 minutes [facility] [address] [facility] Comment on above: Excess skin of abdom en (Primary Dx); Depression, unspecified depression type Start: 05-18-2023 ambulatory [facility] Start: 05-18-2023 End: 05-18-2023 Office outpatient visit 25 minutes Lan Beardhen Arlene DO Work Phone: [facility] Comment on above: Stimulant use disord er (Primary Dx); Depression, unspecified depression type; Gastroesophageal reflux disease, unspecified whether esophagitis present Start: 04-22-2023 End: 04-23-2023 Emergency department patient visit PHYSICIAN ROBIN [facility] Start: 04-20-2023 ambulatory [facility] Start: 03-21-2023 ambulatory [facility] Start: 02-21-2023 ambulatory [facility] Start: 02-09-2023 End: 02-09-2023 Emergency department patient visit [facility] Work Phone: Start: 01-13-2023 End: 01-16-2023 Evaluation and management of inpatient Mirza Duff Facility:[facility] Start: 01-13-2023 End: 01-16-2023 Evaluation and management of inpatient PHYSICIAN LOBITO [facility] Work Phone: Start: 01-13-2023 ambulatory Mirza Duff F acility:[facility] Start: 11-28-2022 End: 11-29-2022 ambulatory [facility] Start: 11-25-2022 End: 11-26-2022 ambulatory [facility] Start: 11-24-2022 End: 11-25-2022 ambulatory [facility] Start: 10-31-2022 End: 10-31-2022 Evaluation and management of inpatient DIMPLE TAVERAS MD Facility:A Start: 10-31-2022 End: 10-31-2022 Evaluation and management of inpatient AIDA MENA [facility] Start: 02-14-2022 ambulatory Nancy De Souza [facility] Start: 10-25-2021 End: 11-01-2021 Evaluation and management of inpatient GABRIEL Russ EDDAYAHIR [facility] Start: 12-08-2020 End: 12-08-2020 Emergency department patient visit LINCOLN IVEY Work Phone: [facility] Start: 09-25-2018 Patient encounter procedure RALPH SIERRA Facility:[facility] Start: 03-27-2018 End: 03-27-2018 Patient encounter procedure RALPH SIERRA Facility:[facility] Start: 03-26-2018 End: 03-26-2018 Patient encounter procedure MARYCARMEN ENCINAS[place] Start: 11-14-2017 End: 11-14-2017 Patient encounter procedure RALPH SIERRA Facility:[facility] Start: 11-08-2017 End: 11-08-2017 Patient encounter procedure CORA MONTANEZ [facility] Start: 02-23-2017 End: 02-23-2017 Emergency department [facility] Facility:[facility] Procedures Date Procedure Procedure Detail Performing Clinician Start: 08-27-2024 Total iron binding capacity measurement Falguni ANDRADE Work Phone: Start: 05-23-2024 Follow-up visit Follow-up GABI MCLEOD Start: 02-09-2023 X-ray of cervical spine Plan of Treatment Date Care Activity Detail Author Start: 12-16-2024 Influenza vaccination INFLUENZA VACCINE (#1) [facility] Start: 09-19-2024 End: 09-19-2024 Patient encounter procedure 09/19/2024 10:30 AM EDT Office Visit [facility] [address] [facility] [address] [place], [place] [id number] [facility] Start: 01-01-2024 End: 01-01-2024 Patient encounter procedure 01/01/2024 9:20 AM EDT Office Visit [facility] [address] [place], [place] [id number] Shivani Rangel MD [address] [place] [address] [facility] Start: 12-17-2023 COVID-19 VACCINE ( season) COVID-19 VACCINE ( season) [facility] Start: 12-17-2023 Influenza vaccination [facility] Start: 02-09-2023 [facility] Start: 01-16-2023 [facility] Start: 01-13-2023 Referral to [facility] [facility] Start: 01-13-2023 Hospital admission [facility] Start: 01-13-2023 [facility] Start: 12-16-2022 COVID-19 VACCINE ( season) COVID-19 VACCINE ( season) [facility] Start: 12-16-2022 Influenza vaccination INFLUENZA VACCINE (#1) [facility] Start: 2010 Screening for malignant neoplasm of cervix CERVICAL CANCER SCREENING DISCUSSION [facility] Start: 2008 Hepatitis B vaccination HEP B VACCINE (1 of 3 - 19+ 3-dose series) [facility] Start: 2008 Third diphtheria, tetanus and acellular pertussis (DTaP) vaccination TDAP (ADULT) [facility] Start: 2004 HIV screening HIV SCREENING DISCUSSION [facility] Start: 09-08-1995 PNEUMOCOCCAL VACCINE SERIES (1 of 2 - PCV) PNEUMOCOCCAL VACCINE SERIES (1 of 2 - PCV) [facility] Start: 03-10-1990 COVID-19 VACCINE (#1) COVID-19 VACCINE (#1) [facility] Start: 1989 Hepatitis B vaccination HEP B VACCINE (1 of 3 - 3-dose series) [facility] Start: 1989 Hepatitis C screening HEPATITIS C VIRUS SCREENING [facility] Start: 1989 Tetanus vaccination TETANUS [facility] Choriogonadotropin ( test) [Presence] in Urine POCT URINE Point of Care Testing Routine Stimulant use disorder 05/18/2023 1:35 PM [facility] Patient Education [facility] Work Phone: Patient referral [facility] Work Phone: POCT ALERE DRUG SCREEN POCT ALER E DRUG SCREEN Point of Care Testing Routine Stimulant use disorder 05/18/2023 1:35 PM [facility] Payers Date Payer Category Payer Medicaid (Managed Care) [facility] [id number] 2023 [facility]-pay [id number] 2022 Medicaid [id number] 2005 Unknown [id number] 1989 Unknown [id number] 2.16.840.1.642059.3.579.2. 278 1989 Unknown [id number] 2.16.840.1.094040.3.579.2. 278 1989 Unknown [id number] 2.16.840.1.818215.3.579.2. 278 1989 Unknown [id number] 2.16.840.1.913889.3.579.2. 297 1989 Unknown [id number] 2.16.840.1.493167.3.579.2. 297 1989 Unknown [id number] 2.16.840.1.699747.3.579.2. 668 1989 Unknown [id number] 2.16.840.1.288741.3.579.2. 668 1989 Unknown [id number] 2.16.840.1.414680.3.579.2. 173 1989 Unknown [id number] 2.16.840.1.209920.3.579.2. 173 1989 Unknown [id number] 2.16.840.1.868800.3.579.2. 173 1989 Unknown [id number] 2.16.840.1.056712.3.579.2. 627 1989 Unknown [id number] 2.16.840.1.377203.3.579.2. 903 1989 Unknown [id number] 2.16.840.1.393659.3.579.2. 983 1989 Unknown [id number] 2.16.840.1.918711.3.579.2. 983 1989 Unknown [id number] 2.16.840.1.394917.3.579.2. 983 1989 Unknown [id number] 2.16.840.1.558250.3.579.2. 983 1989 Unknown [id number] 2.16.840.1.156437.3.579.2. 983 1989 Unknown [id number] 2.16.840.1.110174.3.579.2. 172 1989 Unknown [id number] 2.16.840.1.449878.3.579.2. 176 1989 Unknown [id number] 2.16.840.1.394346.3.579.2. 1285 1989 Unknown [id number] 2.16840.1.414331.3.579.2. 1285 1989 Unknown [id number] 2.16840.1.232984.3.579.2. 1285 1989 Unknown [id number] 2.16.840.1.167214.3.579.2. 1285 1989 Unknown [id number] 2.16.840.1.382770.3.579.2. 1285 1989 Unknown [id number] 2.16.840.1.116633.3.579.2. 1285 1989 Unknown [id number] 2.16.840.1.744217.3.579.2. 1285 1989 Unknown [id number] 2.16.840.1.297536.3.579.2. 651 1989 Unknown [id number] 2.16.840.1.064609.3.579.2. 651 1989 Unknown [id number] 2.16.840.1.278141.3.579.2. 651 1989 Unknown [id number] 2.16.840.1.824905.3.579.2. 651 1989 Unknown [id number] 2.16.840.1.271876.3.579.2. 594 1989 Unknown [id number] 2.16.840.1.394186.3.579.2. 594 Medicaid [id number] Private Health Insurance Unknown [facility] [id number] Unknown Unknown [id number] 2.16.840.1.445653.3.579.2. 531 Unknown [id number] 2.16.840.1.548049.3.579.2. 531 Unknown [id number] 2.16.840.1.634626.3.579.2. 462 Unknown [id number] 2.16.840.1.793015.3.579.2. 462 Social History Date Type Detail Facility Start: [facility]08-[facility] Work Phone: Start: 12-08-2020 Unknown [facility] Work Phone: Start: 12-08-2020 No [facility] Work Phone: Start: 1990 Sex Assigned At Female A [facility] Start: 01-14-2023 [facility] Start: 02-09-2023 [facility] ever smoked [facility] Start: 12-19-[address] [facility] Start: 02-09-2023 End: 05-18-2023 Tobacco smoking status NHIS Smokes tobacco daily [facility] History of tobacco use Cigarette Smoker [facility] Start: 05-18-2023 End: 05-23-2024 Cigarettes smoked current (pack per day) - [facility] Start: 05-18-2023 End: 05-23-2024 Alcohol intake Current drinker of alcohol (finding) [facility] Start: 05-18-2023 End: 05-23-2024 Tobacco use panel [facility] Start: 02-28-2017 Alcohol Comment 1 per month [facility] Start: 1990 Sex Assigned At Not on file A [facility] Start: 02-28-2017 Gender identity Identifies as female gender (finding) [facility] Start: 05-23-2024 End: 11-01-2024 Tobacco smoking status NHIS Ex-smoker [facility] Start: 02-28-2017 Sex Female (finding) [facility] Medical Equipment Procedure Code Equipment Code Equipment Origin al Text Equipment Identifier Dates Nexplanon 68mg [id number] Start: 03-01-2017 Goals Date Patient Goal Desired Activity /State Functional Status Date Assessment Result Facility 01-16-2023 Functional status Patient at Baseline [facility] Work Phone: 10-31-2022 Functional Status None [facility] 10-31-2022 Functional Status Dinner Percent 100 [facility] 10-31-2022 Functional Status Room check performed [facility] 10-31-2022 Functional Status [facility] 10-31-2022 Functional Status [facility] 10-31-2022 Functional Status Hospital bed [facility] 03-01-2017 Are you deaf, or do you have serious difficulty hearing No 03/01/2017 3:09 AM Stephanie Yepez, JAYLON No [facility] 03-01-2017 Are you blind, or do you have serious difficulty seeing, even when wearing glasses No 03/01/2017 3:09 AM Stephanie Yepez, JAYLON No [facility] 03-01-2017 Do you have serious difficulty walking or climbing stairs No 03/01/2017 3:09 AM Stephanie Yepez, JAYLON No [facility] 03-01-2017 Do you have difficul ty dressing or bathing No 03/01/2017 3:09 AM Stephanie Yepez, JAYLON No [facility] 03-01-2017 Because of a physica l, mental, or emotional condition, do you have difficulty doing errands alone such as visiting a physician's office or shopping No 03/01/2017 3:09 AM Stephanie Yepez, JAYLON No [facility] Mental Status Date Assessment Result Facility 01-16-2023 Cognitive function Cognitive Sta tus Patient at Baseline [facility] Work Phone: 10-31-2022 [facility] Status [facility] 10-31-2022 Mental Status [facility] 03-01-2017 Because of a physica l, mental, or emotional condition, do you have serious difficulty concentrating, remembering, or making decisions No 03/01/2017 3:09 AM Stephanie Yepez RN No [facility] Clinical Notes 10-27-2021 to 09-19-2024 Bianca Elder - 09/19/2024 10:30 AM EDPANCHO Garcia [...] Allergies reviewed with pt. Pictures taken using enosiX yocasta and uploaded in media tab in IHIS. Zack Jameson verbally agreed to have pictures taken for documentation of continuity of medical care. ,Chief Complaint: Chief Complaint Patient presents with Pre-operative Consultation BILL MOORE'S SLOUGH: Ms. Jameson is a 34 y.o. female [...] then see me. documented in this encounter [facility] 09-19-2024 Instructions Katharine Romano RN - 09/19/2024 10:30 AM EDT Call to schedule appointment when BMI target is met. On behalf of the [facility] staff, it was a pleasure to see [...] address provided is the address here at [facility]. We look forward to seeing you again in the future. [facility] Plastic Surgery [address] [place] [address] [address] [facility] [id number] documented in this encounter [facility] 05-23-2024 History of Presen t illness Narrative Patient arrived via ambulatory. Accompanied by self. 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 Patient was knowledgeable of all their medications, and medication list was reconciled in IHIS.. Allergies reviewed with pt. Pictures taken using enosiX yocasta and uploaded in media tab in IHIS. Zack Jameson verbally agreed to have pictures taken for documentation of continuity of medical care. Chief Complaint: Chief Complaint Patient presents with New Patient Follow-up See about a year ago BILL MOORE'S SLOUGH: Ms. Jameson is a 33 y.o. female [...] Patient Follow-up See about a year ago BILL MOORE'S SLOUGH: Ms. Jameson is a 33 y.o. female [...] by us today in presence of a real estate attorney. Pertaining to the excess skin: The patient [...] exception of those things noted in the BILL MOORE'S SLOUGH above. Past Medical History: No past medical history on file. Past Surgical History: Past Surgical History: Procedure Laterality Date TREATMENT INDUCED W/ DILATION & EVACUATION N/A 03/01/2017 Laterality: N/A; Surgeon: Kiya Escoto MD; Location: [facility] MAIN OR GASTRIC BYPASS 2014 CHOLECYSTECTOMY 2014 [...] Insecurity: No Food Insecurity (08/22/2023) Received from [employer] [facility] Hunger Vital Sign Worried About Running Out of Food in the Last Year: Never true Ran Out of Food in the Last Year: Never true Transportation Needs: No Transportation Needs (08/22/2023) Received from [employer] [facility] - Transportation Lack of Transportation [...] for surgical candidacy. documented in this encounter [facility] 05-23-2024 Instructions Yuliet Corea RN - 05/23/2024 11:20 AM EST Try to lose about 30 more pounds to be re-evaluated. On behalf of the [facility] staff, it was a pleasure to see [...] address provided is the address here at [facility]. We look forward to seeing you again in the future. [facility] Plastic Surgery [address] [place] [phone] documented in this encounter [facility] 05-12-2024 Note . MICRO - Microbiology PROCEDURE: [...] Locations *1: This test was performed at: [facility], [address] [place] [address], [id number]- , [facility] 07-25-2023 History of Presen t illness Narrative Patient arrived via Ambulatory. Accompanied by self. Pt here to see plastic surgery for new patient evaluation for abdominal body contouring surgery. Medications and allergies reviewed. Pictures taken using enosiX yocasta and uploaded in media tab in [employer]. Zack Jameson verbally agreed to have pictures taken for documentation of continuity of medical care. [facility] to obtain records from 2015 gastric bypass surgery. Chief Complaint: Chief Complaint Patient presents with New Patient Body contouring of abdomen BILL MO[employer] SLOUGH: Ms. Jameson is a 32 y.o. female [...] above symptoms for 24 months. Call to [facility] to obtain records of Bariatric Surgery from [...] surgical candidacy. I spent 30-45 minutes in hpns-oz-iaxk time with this patient, over half of this time was spent in discussing surgical options, patient education, and coordination of care. DANG Montez HISTORY OF PRESENT ILLNESS Zack Jameson is a 32 y.o. female who presents for evaluation of excess skin and soft tissue. This patient was evaluated today in presence of a real estate attorney. The patient underwent Gastric Bypass Surgery in [...] Laterality: N/A; Surgeon: Kiya Escoto MD; Location: [facility] MAIN OR GASTRIC BYPASS 2014 CHOLECYSTECTOMY 2014 [...] Back: spine midline documented in this encounter [facility] 07-25-2023 Instructions Katharine Romano RN - 07/25/2023 8:00 AM EDT Follow Up: Referral has been placed for an [facility] Plastic Surgeon, Dr. Rangel, who specializes in full body contouring. You will be contacted to schedule. If you do not hear from their office in 2 weeks, call [facility] Plastic Surgery to schedule. See phone number below. [facility] Plastic Surgery [address] [phone] On behalf of the [facility] staff, it was a pleasure to see [...] address provided is the address here at [facility]. We look forward to seeing you again in the future. documented in this encounter [facility] 05-18-2023 History of Presen t illness Narrative [...] Reviewed Yes POCT ALERE DRUG SCREEN Order: [id number] Status: In process Visible to patient: No [...] Dad age 61 at home alone in [place], 3 sibs, celebration of life done Current [...] unknown to me: No Counselor- yes [facility] Any use of opioid or any other drug that isn't prescribed for you and is unknown to me: No AOD: stimulant use disorder IUDS: Labs: Reviewed Yes POCT ALERE DRUG SCREEN Order: [id number] Status: In process Visible to patient: No [...] negative Nortripyline (TCA), poct negative Social- at [facility] till this Month, will stay another [...] Lan Jacobs DO documented in this encounter [facility] 01-16-2023 Discharge summary Note Date/Time January 16, 2023 9: 32am [facility] [address] [place] [address] Discharge Summary Signed Patient: Zack Jameson MR#: [id number] : 1990 Acct:[id number] Age/Sex: 32 / F Adm Date: 3 Loc: Room: [address] [place] [address]: Mirza Duff MD Copies to: [...] OD. Per records, patient has been at [facility] in [place] ith her fiance and has been off [...] on probation for drugcharges and is facing long-term time.Oriented to the unit, policy's and procedures,patient [...] recovery center. Living: Currently lives at [facility] in [place]. Employment: Unemployed. Relationships: Strong relationship with fianc? [...] Instructions: Important Contact Information You can call [facility] Inpatient Behavioral Health at [phone] any time day or night if you have emergent questions or question regarding discharge instructions. If at any time you are feeling an increase inyour psychiatric symptoms, call your physician or behavioral healthcare provider. If any time you have thoughts of harming yourself or others contact one of the following: Call (available 07/11) Crisis Text Line (available 07/11) text 4HOPE to [phone] [facility] Hope Line (available 8 a.m. Midnight) call [phone] ([phone]) Regular Diet No Activity Restrictions Instructions: Depression, Adult (DC), [facility] Behavioral Health DC Instructions Prescriptions: New trazodone [...] Days Qty: 30 0RF Follow Up: [facility] [Outside] [facility] [Physician] - ( to manage all care ) Documented By: Harrison Fuller MD 01/16/23 0932 Signed By: <Electronically signed by Harrison Fuller MD> 01/16/23 0171 [facility] Work Phone: 1(933) 543-121310-01-2023 Progress note Author Mirza martinez [facility] January 15, 2023 6:25am Note Date/Time January 15, 2023 6: 26am [facility] [address] [place] [address] Psychiatry Progress Note Signed Patient: Zack Jameson MR#: [id number] : 1990 Acct:[id number] Age/Sex: 32 / F Adm Date: 3 Loc: Room: [address] [place] [address] Type : ADM IN Attending Dr: Mirza Duff MD Copies to: ~ Date of Service: 01/15/2023 Subjective Subjective Narrative: Zack Jameson said she is working on regulating her emotions. She is worried about her probation indicating that her global chief experience officer is strict. She is worried about violating her probation and ending up in longterm. She has a class tomorrow and does not want to miss it. She attends IOP at [facility] and wants to go back there when [...] and denied SI/HI. -Anticipate discharge tomorrow to [facility] -Continue Paxil 20mg PO QAM and Lamictal [...] signed by Mirza Duff MD> 01/15/23 0625 [facility] Work Phone: 1(762) 787-286309-30-2023 History and physical note Author Mirza martinez [facility] January 14, 2023 9:16am Note Date/Time January 14, 2023 9:16am [facility] [address] [place] [address] Psychiatry H&P Signed Patient: Zack Jameson MR#: [id number] : 1990 Acct:[id number] Age/Sex: 32 / F Adm Date: 3 Loc: 1S Room: [address] [place] [address] Type: ADM IN Attending Dr: Mirza Duff [...] OD. Per records, patient has been at [facility] in [facility] her ance and has been off [...] probation for drug charges and is facing long-term time.Oriented to the unit, policy's and procedures,patient [...] of meth use. 2 months at the [facility]. Living: Currently lives at the [facility] in [place]. Employment: Unemployed. Relationships: Strong relationship with fianc? [...] strong, equal bilaterally. CNXII: Tongue protrusion midline [facility] Medical History (Updated 01/14/23 @ 08:48 by [...] trailer with pieter.Currently boyfriendand her are at [facility] in [place], [place] for substance abuse. Meds Medications and [...] psychiatric therapy. Pt is in rehab at [facility] for substance abuse. Denies SI, HI, or [...] signed by Mirza Duff MD> 01/14/23 0916 [facility] Work Phone: 1(645) 905-841407-17-2023 Hospital Discharge instructions Patient Education 10/31/2022 17:18:07 Gastrointestinal Bleeding, Yzgl-ah-Damr Gastrointestinal Bleeding Gastrointestinal (GI) bleeding is bleeding [...] hospital. Follow these instructions at home: Take anzh-uvt-spkwivd and prescription medicines only as told by [...] 01/10/2009 Document Revised: 11/14/2018 Document Reviewed: 11/14/2018 WebPay Patient Education 2020 Mem[employer]. Follow Up Care 10/31/2022 04:14:44 With:AGNES SRIVASTAVA MD Address: [address] [place] [address] [place] [address] [phone] When:5 to 7 days With:Call MARY Orta PtMame Refferral [phone] Address:Unknown When:1-2 days [facility] 07-17-2023 Note Discharge Instructions Thank you for allowing [facility] to assist you with your healthcare needs. The following is importantdischarge information regarding your hospital visit. What to do next Follow Up Appointments Follow Up with AGNES SRIVASTAVA MD When Within 5 to 7 days Where: [address] [place] [address] [place] [address] [phone] Follow Up with Call MARY Orta PtMame Refferral [phone] When Within 1-2 days The Following Activity [...] a day Duration: 30 Days Pickup at [facility] Changed ferrous sulfate (ferrous sulfate 324 mg (65 mg elemental iron) oral delayed release tablet) 1 tab(s) by mouth Monday / Monday / Monday Duration: 30 Days Pickup at [facility] Unchanged ascorbic acid (Vitamin C 500 mg oral tablet) 2 tab(s) by mouth Once a day Pharmacy Information [facility]: [address] [place], [place] [phone] What How Much When Comments Stop Taking [...] hospital. Follow these instructions at home: Take flqi-htz-isqsnjb and prescription medicines only as told by [...] 01/10/2009 Document Revised: 11/14/2018 Document Reviewed: 11/14/2018 WebPay Patient Education 2020 [employer]. Additional Information VACCINATE! IT SAVES LIVES! Members of the community who have not yet received the COVID-19 vaccine and would like to receive it can visit one of [facility] vaccine clinics. There are many vaccine clinic locations within the [facility]. For locations and available times, please visit https://gettheshot.coronavirus.[place].gov/. It is important to note that some COVID mobile vaccine clinics are held outdoors and may be canceled in rainy or stormy conditions. To learn more about pediatric vaccinations (ages 5-11), we invite you to visit the [facility] webpage. https://www.[facility].org/pages/8812-Cknup-Uzmipswlvcr-Kjvcdcaysi-Zuhme-Ljh stions.htmlTo learn more about the COVID-19 vaccine, we invite you to visit the CDC website for a list of frequently asked questions.https://www.cdc.gov/coronavirus/2019-ncov/vaccines/faq.html [facility] Patient Portal Access Instructions: Stay connected with your healthcare team and access your personal medical information anytime with the [facility] Patient Portal. Please follow the directions below to create your [facility] account: 1.Access the email account you provided upon registration to the hospital/physician office.2.Look for an invitation email from [facility].3.Open the email and access the invitation link: AcceptInvitation to [facility].4.Fill in the required carlton to create your account. To access your account, visit VoiceBunny/inSparqt. Click the blue button labeled Access Patient Portal and then log in with the username and password that you created in the steps above. You will be able to view your test results, lab results, a summary of your visits, upcoming appointments and more. There is also a convenient messaging option where you can send secure messages to your p Mixpanelvider. In addition, you will have the ability to download any documents or summaries to your computer and/or send the information securely to a physician. Remember that your healthcare information is confidential, so carefully consider who you will allowto register on the [facility] Patient Portal for access to your information. You can also access the [facility]com[employer] Patient Portal on the [employer] yocasta. Simply click on Patient Portal and then log into your account. If you would like to receive a full copy of your medical records, please contact the [facility] Medical Records Department by calling [phone], Monday through Monday between 8 a.m. and [...] Call your local pharmacy or go to http://Nano Think.Brandwatch/[email or web address] to find one close to you.3.Make use of household items: Use cat litter or old coffee grounds to dispose medications if other options arenot available. Mix your drugs with these household products, seal them in an airtight container andthrow it into the garbage. Call [facility]: [phone] to be sure your drugs can be [...] COPY. Signatures Patient Education Materials Gastrointestinal Bleeding, Ehje-kd-Dgpu Medication Leaflets My discharge plan and instructions have been reviewed and explained to me and ITYSON JAMIE understand my current condition and have read and understand these discharge instructions. I have received a written copy of the plan/instructions. If I have questions, I am aware that I should contact my d octor. Patient/Surveillance Observer Signature: Date/Time: Relationship to Patient: Witness Name/Signature: Date/Time: [facility]3713 Discharge summary Date of Service 10/31/2022 Discharge [...] Oral, BID, # 60 tab(s),0 Refill(s), Pharmacy: [facility], 152.4, cm, 10/31/22 4:22:00 EDT, Height Ordered: ferrous sulfate 324 mg (65 mg elemental iron) oral delayed release tablet,Dose : 324 mg = 1 tab(s), Oral, Mon/Wed/Fri, X 30 day(s), # 13 tab(s), 0 Refill(s), 11/30/22 16:48:00 EDT, Pharmacy:[facility], 152.4, cm, 10/31/22 4:22:00 [...] gastric bypass who presents as transfer from [facility] for GI bleed. Per admitting provider patient [...] Within 5 to 7 days Where: [address] [facility] [place] [address]- [phone] Follow Up with Call AMB You Pt. Refferral [phone] When Within 1-2 days Follow Up Appointments [...] DIMPLE TAVERAS MD on 10/31/2022 04:54 PM [facility]wqdlaqb75-69-4141 Nurse Progress note Patient requesting to be discharged. Dr. Taveras notified and stated patient would have to leave AMA.Paper given to nurse to discuss with patient. Digitally Signed by Sena Perez RN on 10/31/2022 04:44 PM [facility]Nqhvjfqp54-57-9226 Gastroenterology Progress note Date of Service Discussed [...] GARRICK QUIROGA PA-C on 10/31/2022 03:27 PM [facility] HospitalWjfpvcla91-14-3356 Evaluation + Plan noteExtracted from: Title:History and [...] Hemoglobin 10/31/22 * Hemoglobin/Hematocrit - Panel 10/31/22 [facility] 07-17-2023 Anesthesiology Progress note Patient: ZACK JAMESON [...] status: within normal limits. Digitally Signed by HSARONDA VAUGHN MD on 10/31/2022 12:54 PM [facility] HospitalVpzmetnc11-15-1142 Procedure note Procedure: Upper endoscopy Indication: Anemia [...] Should follow-up as an outpatient with her pet care assistant to consider colonoscopy in the outpatient setting. Await pathology results. In the interim, continue with omeprazole 40 mg daily or PPI therapy daily. We will continue to follow. Digitally Signed by AGNES SRIVASTAVA MD on 10/31/2022 12:29 PM [facility] HospitalKtzpnbmu93-59-9580 Procedure note Procedure: Upper endoscopy Indication: Anemia [...] Should follow-up as an outpatient with her pet care assistant to consider colonoscopy in the outpatient setting. Await pathology results. In the interim, continue with omeprazole 40 mg daily or PPI therapy daily. We will continue to follow. Digitally Signed by AGNES SRIVASTAVA MD on 10/31/2022 12:29 PM [facility] HospitalTcgyczgh04-29-1466 Procedure note Procedure: Upper endoscopy Indication: Anemia [...] Should follow-up as an outpatient with her pet care assistant to consider colonoscopy in the outpatient setting. Await pathology results. In the interim, continue with omeprazole 40 mg daily or PPI therapy daily. We will continue to follow. Digitally Signed by AGNES SRIVASTAVA MD on 10/31/2022 12:29 PM [facility] HospitalTxuemqmd75-25-6071 Gastroenterology Consult note Date of Service 10/31/2022 [...] EGD with cauterization of esophageal ulcers at [place]. She has not followed up with GI [...] GARRICK QUIROGA PA-C on 10/31/2022 10:20 AM [facility] HospitalSeijllbq61-33-5739 Anesthesiology Progress note Patient: ZACK JAMESON Age: [...] Medical Bipolar 1 disorder / SNOMED CT 3483287508 / Confirmed Overdose / SNOMED CT 86430198 / Confirmed Substance abuse / SNOMED CT 229088234 / Confirmed, Active Problems (3) Bipolar 1 disorder Overdose Substance abuse Histories Past Medical History: Active Substance abuse (020356930) Procedure history: No active procedure history items have been selected or recorded. Social History Social & Psychosocial Habits No Data Available . Physical Examination Measurements from flowsheet : Measurements 10/31/2022 4:22 EDT Height 152.4 cm Height in inches 60 inch(es) Admission Weight 100.2 kg Weight Lbs 220.4 lb [place] Body Weight 45.50 kg Type of Scale [...] records, Reviewed prior records. Assessment and Plan [place] [employer] of Anesthesiologists (ASA) physical status classification: [...] SHARONDA VAUGHN MD on 10/31/2022 11:45 AM [facility] HospitalUwnzvqlu29-20-4496 Gastroenterology Consult note Date of Service 10/31/2022 [...] EGD with cauterization of esophageal ulcers at [place]. She has not followed up with GI [...] GARRICK QUIROGA PA-C on 10/31/2022 10:20 AM [facility] HospitalWslrqisb51-85-6215 Nurse Progress note Patient arrived from with blood running. Blood finished at 0416. Vitals were taken and recorded.No signs or symptoms of a reaction noted. Digitally Signed by Melvi Malone RN on 10/31/2022 04:30 AM [facility] HospitalNponqodk10-08-0248 History and physical note Date of Service [...] AIDA MALONE DO on 10/31/2022 04:57 AM [facility] HospitalHqqzxask65-41-9569 NoteName of Caller: Zack Contact Reason for Appointment: Excess skin removal consultation Office Name: Plastics Medication Refills need, if any: NA Medication Name: [facility]9183 NoteHospitalist Discharge Summary Zack Louiss : 1990 [...] AM No results found for: PHART, PO2ART, JOP0TUM No results for input(s): INR in the [...] Your Medications These medications were sent to [facility] [address] [place] [address] - P [phone] - F [phone] [address] [facility] [address] omeprazole 20 MG (more content not included)...[facility]07-13-2022 Aaliyah Jameson 10/27/2021 10:34 AM Procedure Performed: [...] primary care provider on file. Gabriel Landaverde, [facility] noteNo Assessments Information [facility] Work Phone: Evaluation note* Diagnosis Onset Date Resolution Status Depression acute Substance abuse acute [facility] Work Phone: Evaluation noteNo assessment information available [facility] Work Phone: Evaluation note* Diagnosis Stimulant use disorder- Primary Depression, unspecified depression type Gastroesophageal reflux disease, unspecified whether esophagitis present documented in this encounter [facility] Diagnosis Excess skin of abdomen- Primary Unspecified hypertrophic and atrophic condition of skin Depression, unspecified depression type documented [facility] encounter [facility] Diagnosis Excess skin of abdomen- Primary Unspecified hypertrophic and atrophic condition of skin documented in this encounter [facility] Diagnosis Excess skin of abdomen- Primary Unspecified hypertrophic and atrophic condition of skin S/P gastric bypass Bariatric surgery status documented in this encounter [facility] Narrative No data available for this section [facility] Discharge instructions Additional Instructions Important Contact Information You can call [facility]al [facility] at [phone] any time day or night if you have emergent questions or question regarding discharge instructions. If at any time you are feeling an increase in your psychiatric symptoms, call your physician or behavioral healthcare provider. If any time you have thoughts of harming yourself or others contact one of the following: Call [phone] (available 07/11) Crisis Text Line (available 07/11) text 4HOPE to [phone] [facility] Hope Line (available 8 a.m. Midnight) call [phone] ([phone]) Regular Diet No Activity [facility]ions[facility] Work Phone: Reason for referral (narrative)* Consultation (Routine) - New Request Specialty Diagnoses / Procedures Referred By Contac t Referred To Contact Plastic Surgery Diagnoses Depression, unspecified depression type Lan Jacobs DO [address] [place] [address] Ibeth Napier MD [address] [facility] [address] [place] [address] Referral ID Status Reason Start Date Expiration Date V isits Requested Visits Authorized [id number] New Request 05/18/2023 06/11/2024 1 1 [facility] Consultation (Routine) - New Request Specialty Diagnoses / Procedures Referred By Contac t Referred To Contact Plastic Surgery Diagnoses Excess skin of abdomen Nadiya Barrios, PAC [address] [place] [address] Shivani Rangel MD [address] [place] [address] Referral ID Status Reason Start Date Expiration Date V isits Requested Visits Authorized [id number] New Request 07/25/2023 08/18/2024 1 1 [facility] for referral (narrative)No reason for referral information availableWKettering Health [facility] Work Phone: Summary Purpose Family History No [...] Will No February 09 3:46pm Power of Shuttle Final Inspector No February 09, 2023 3:46pm Latest Code [...] section and content) DATE CREATED AUTHOR 10/10/2017 [facility] DATE CREATED AUTHOR AUTHOR'S ORGANIZ ATION 03/29/2018 [facility] DATE CREATED AUTHOR AUTHOR'S ORGANIZ ATION 03/29/2018 [facility] DATE CREATED AUTHOR AUTHOR'S ORGANIZ ATION 03/30/2018 [facility] DATE CREATED AUTHOR AUTHOR'S ORGANIZ ATION 01/30/2019 [facility] DATE CREATED AUTHOR AUTHOR'S ORGANIZ ATION 02/07/2022 [facility] DATE CREATED AUTHOR AUTHOR'S ORGANIZ ATION 10/10/2022 [facility] DATE CREATED AUTHOR AUTHOR'S ORGANIZ ATION 11/29/2022 [facility] DATE CREATED AUTHOR AUTHOR'S ORGANIZ ATION 02/12/2023 [facility] ([place]) DATE CREATED AUTHOR AUTHOR'S ORGANIZ ATION 04/21/2023 [facility] DATE CREATED AUTHOR AUTHOR'S ORGANIZ ATION 05/17/2023 [facility] DATE CREATED AUTHOR AUTHOR'S ORGANIZ ATION 05/20/2023 [facility] DATE CREATED AUTHOR AUTHOR'S ORGANIZ ATION 08/22/2023 [facility] DATE CREATED AUTHOR AUTHOR'S ORGANIZ ATION 08/27/2023 [facility] DATE CREATED AUTHOR AUTHOR'S ORGANIZ ATION 09/22/2023 [facility] [facility] DATE CREATED AUTHOR AUTHOR'S ORGANIZ ATION [facility] DATE CREATED AUTHOR AUTHOR'S ORGANIZ ATION 07/01/2024 [facility] DATE CREATED AUTHOR AUTHOR'S ORGANIZ ATION 07/09/2024 [facility] DATE CREATED AUTHOR AUTHOR'S ORGANIZ ATION 10/18/2024 [facility] DATE CREATED AUTHOR AUTHOR'S ORGANIZ ATION 11/04/[address] [facility] Patient Care team informatio n (unrecognized section [...] Active Luis Villar MD Emergency Provider Active [employer] Relationship Specialty Start Date End Date Lan Jacobs, PCP - General General Surgery 01/23/23 [employer] Relationship Specialty Start Date End Date Lan Jacobs DO PCP - General General Surgery 01/23/23 [employer] Relationship Specialty Start Date End Date Lan [...] August 27, 2024 End: August 27, 2024 [employer] Relationship Specialty Start Date End Date Lan Jacobs DO PCP - General General Surgery 01/23/23 Team Status: Active Member Role/Relationship Status Dates No Primary Care Physician Family Provider Active Falguni Shanks LEHR TENDER-C Primary Care Provider Active Team Status: Inactive [...] unspecified depression type Lan Jacobs, DO [address] [place] [address] Ibeth Napier MD [address] [facility] [address] [place] [address] Referral ID Status Reason Start Date Expiration Date V isits Requested Visits Authorized [id number] New Request 05/18/2023 06/11/2024 1 1 Reason Comments New Patient Follow-up See about a year ago Specialty Diagnoses / Procedures Referred By Contac t Referred To Contact Plastic Surgery Diagnoses Excess skin of abdomen Nadiya Barrios, [facility] [address] [place] [address] Phone: tel: fax: Shivani Rangel MD [address] [place] [address] Phone: tel: fax: Referral ID Status Reason Start Date Expiration Date V isits Requested Visits Authorized [id number] New Request 07/25/2023 08/18/2024 1 1 Reason [...] BE BASED ON THE PRIMARY CLINICAL RECORDS. [employer] [facility]. provides no warranty or guarantee of the accuracy or completeness of information in this document.
[2024-11-16 04:07] LABS: Prealbumin 21 mg/dL (14-35)
== END | disposition home or self-care (01) ==
LOC: VSLAB 13:39
PROVIDERS: Surgery Plastic and Reconstructive Surgery; PCP Nurse Practitioner Family; Visit Provider Nurse Practitioner Family
DX: Z01.818 Encounter for other preprocedural examination (principal); Z00.8 Encounter for other general examination; D50.9 Iron deficiency anemia, unspecified
CPT/HCPCS: 36415; 80053; 82728; 83540; 83550; 84134; 85025

== ENCOUNTER 2024-11-19 20:59 | Emergency (ER) | payer MEDICAID, SELFPAY ==
[2024-11-19 21:02] VITALS: BP 132/86; PULSE 84; RESP 18; TEMP 36.6; O2SAT 97; BMI 41.1
--- NOTE | 2024-11-19 21:04 | EX.ED.DYSGE1 ---
HPI History of Present Illness Chief Complaint: Suicidal PFSH PFSH Home Medications ?Medication ?Instructions ?Recorded ?Last Taken ?Type cyclobenzaprine 10 mg tablet 10 mg PO TID PRN Muscle Spasm #20 02/09/23 Unknown Rx TABLETS ascorbic acid (vitamin C) 250 mg PO 11/01/24 Unknown History tablet ferrous sulfate 325 mg (65 mg mg PO 11/01/24 Unknown History iron) tablet (FeroSul) multivitamin-iron sulfate 15 1 tab PO QDAY 11/01/24 Unknown History mg-folic acid 400 mcg tablet (Tab-A-Tom Multivitamin w-iron) paroxetine HCl 40 mg tablet 40 mg PO QDAY 11/01/24 Unknown History quetiapine 100 mg tablet mg PO 11/01/24 Unknown History risperidone 0.5 mg tablet mg PO 11/01/24 Unknown History Allergy/AdvReac Type Severity Reaction Status Date / Time aspirin AdvReac Other Verified 11/19/24 21:02 Social History (Updated 11/19/24 @ 21:23 by Yumiko Matthews) housing: house Smoking Status: Former smoker EXAM Physical Exam Const Vital Signs: 11/19/24 21:02 Temperature 97.8 F Temperature Source Temporal Pulse Rate 84 Respiratory Rate 18 Blood Pressure 132/86 H Blood Pressure Mean 101 Pulse Ox 97 Oxygen Delivery Method Room Air MDM MDM MDM Narrative Medical decision making narrative: HISTORY OF PRESENT ILLNESS: Chief complaint: Suicidal ideation 34-year-old female presents with concern for suicidal ideation with plan to overdose on pills. Notes she has been under stress. REVIEW OF SYSTEMS: Pertinent positives: Suicidal ideation Pertinent negatives: Homicidal ideation, auditory visual hallucinations. PHYSICAL EXAM: Nursing triage notes reviewed, Vital signs reviewed Constitutional: please see mdm HENT: MMM Eyes: Pupils equal round and reactive to light, Extraocular muscles intact Neck: No stridor, no JVD, full neck ROM Lungs: Clear to auscultation, No wheezing or rales. No increased work of breathing, no conversational dyspnea, no accessory muscle use, no nasal flaring. No respiratory distress noted Heart: Regular rate and rhythm, No murmurs, No rubs and No gallops, 2+ distal pulses (radial, femoral, posterior tibial) in all extremities Abdomen: Soft, there is no tenderness, rigidity, rebound or guarding, no obvious peritoneal signs, no palpable pulsatile abdominal masses, no auscultated abdominal bruit : No CVAT Extremities: No edema Neuro: No new focal neurological deficits, cranial nerves II through XII intact, 5/5 strength in all present extremities. Intact sensation to light touch in all present extremities, 2+ reflexes bilateral patella tendons. Skin: No rash or lesions noted Psych: Tearful, does not appear to responding to internal stimuli, disheveled, poor eye contact MEDICAL DECISION MAKING: Chief Complaint: please see HPI External records reviewed: Factors affecting care: none Social determinants of health: History of schizophrenia History obtained from others: none Consults: Behavioral health social work MDM Narrative: The patient was hemodynamically stable, afebrile and nontoxic-appearing. Exam without focal cardiopulmonary abnormalities. Medical clearance labs obtained. ALL IMAGES (IF OBTAINED) HAVE BEEN PERSONALLY REVIEWED AND INTERPRETED BY MYSELF. CBC without leukocytosis, severe anemia, no thrombocytopenia. BMP without significant Juliet abnormalities, there is a very mild metabolic acidosis with a bicarb of 20.6 (lab reference range 21-34), no acute kidney injury, Serum test is negative Urine drug screen negative Serum alcohol negative The patient was medically cleared. Behavioral social evaluated the patient recommended placement. [place] slip and transfer form signed. Awaiting final placement. Signed out to overnight physician pending placement and transfer. The patient and/or family, caregivers express understanding. The patient and/or family, caregivers agrees with the plan. Shared decision making: I will have a discussion with the patient and or visitors regarding risk/benefits of further testing or admission. They will be made aware of of the risk/benefits inherent in this decision they will be given the opportunity to voice understanding. Total critical care time today provided was at least 0 minutes. This excludes separately billable procedures. Critical care time (if documented) is secondary to the patient having high probability of clinically significant/life threatening deterioration in the patient's condition which required my urgent intervention. Impression: 1. Suicidal ideation 2. History of schizophrenia Dispo: This note was generated with [employer] dictation software. It may contain incorrect words, spelling, and punctuation that were not noted in review of the chart prior to signing. Lab Data Labs: Laboratory Results - last 24 hr 11/19/24 11/19/24 21:24 21:56 WBC 10.9 RBC 4.43 Hgb 14.3 Hct 40.6 MCV 91.6 MCH 32.3 H MCHC 35.2 RDW Std Deviation 41.6 RDW Coeff of Mare 12.5 Plt Count 303 MPV 9.1 Immature Gran % (Auto) 0.200 Neut % (Auto) 60.5 Lymph % (Auto) 29.6 Tyrrell % (Auto) 6.7 Eos % (Auto) 2.4 Baso % (Auto) 0.6 Absolute Neuts (auto) 6.6 Absolute Lymphs (auto) 3.24 Nucleated RBC % 0 Sodium 136 Potassium 3.7 Chloride 103 Carbon Dioxide 20.6 L Anion Gap 12 BUN 11 Creatinine 0.56 L Estim Creat Clear Calc 145.05 Est GFR (MDRD) Non-Af 122 BUN/Creatinine Ratio 20.0 Glucose 92 Calcium 9.5 Serum , Qual NEGATIVE Urine Opiates Screen NEGATIVE U Buprenorphine Qual NEGATIVE Ur Oxycodone Screen NEGATIVE Urine Methadone Screen NEGATIVE Urine Fentanyl Screen NEGATIVE Ur Barbiturates Screen NEGATIVE Ur Phencyclidine Scrn NEGATIVE Ur Amphetamines Screen NEGATIVE U Benzodiazepines Scrn NEGATIVE Urine Cocaine Screen NEGATIVE U Cannabinoids Screen NEGATIVE Ethyl Alcohol < 10.1 Discharge Plan Triage Chief Complaint: Suicidal ED Provider: Gordy Garcia Dx/Rx/DC Orders Prescriptions: No Action risperidone 0.5 mg tablet PO paroxetine HCl 40 mg tablet 40 mg PO QDAY quetiapine 100 mg tablet PO Tab-A-Tom Multivitamin w-iron 15 mg iron- 400 mcg tablet 1 tab PO QDAY ferrous sulfate [FeroSul] 325 mg (65 mg iron) tablet PO ascorbic acid (vitamin C) 250 mg tablet PO cyclobenzaprine 10 mg tablet 10 mg PO TID PRN (Reason: Muscle Spasm) Qty: 20 0RF Primary Care Provider: Falguni Shanks Referrals: Falguni Shanks CLINICAL TRIALS SPECIALIST-C [Primary Care Provider] - Print Language: Irish
--- OUTSIDE RECORDS SUMMARY | 2024-11-19 22:06 | XMS RPT_ITS | CCD ---
Author Organization [facility] Care Team Providers Care Lead Coater Name Role Phone SPIRTOS, CARRINGTON Unavailable Unavailable SPIRTOS, CARRINGTON Unavailable Unavailable RIGO, RALPH C Unavailable Unavailable IM[facility] Unavailable Unavailable [facility] Unavailable Unavailable RIGO, RALPH C Unavailable Unavailable [facility] Unavailable Unavailable [facility] Unavailable Unavailable RIGO, RALPH C Unavailable Unavailable [facility]CA Unavailable Unavailable RIGO, RALPH C Unavailable Unavailable RIGO, RALPH C Unavailable Unavailable LISSETH, CORA Unavailable Unavailable LISSETH, CORA Unavailable Unavailable LISSETH, CORA Unavailable Unavailable CE([facility])MARYCARMEN Unavailable Unavailab CORA Altman Unavailable Unavailable LISSETH CORA Unavailable Unavailable LINCOLN [...] Admit Provider MD Mirza Duff Attending Provider DIANA ALCOCER, DIMPLE Attending Unavailable PENNY ALCOCER, CYNDEE Consulting Unavailable AIDA MALONE DO Admitting Unavailable ATIF ALCOCER, DR ALARCON Consulting Unavail able SHARONDA VAUGHN MD Consulting Unavailable Omega, Mirza Admitting Unavailab le NO FAMILY, PHYSICIAN Primary Care Unavailable Harrison Fuller Attending Unavailable Omega, Mirza Admitting Unavailab le Omega, Mirza Attending Unavailab le NO FAMILY, PHYSICIAN Primary Care Unavailable NO, PHYSICIAN Primary Care Unavailable SKYLAR WALTERS Attending Unavaila ble Arlene DO, P. Mike Primary Care Provider [phone] ARLENE, P. MIKE Referring Unavailable ARLENE, P. [...] Referring Unavailable SHIDYAK, AMJAD Primary Care Unavailable NAYE RHODES HOSPICE REGISTERED NURSE Consulting Unavailable UNGERER, NAYE HOSPICE REGISTERED NURSE Attending Unavailable UNGERER, NAYE HOSPICE REGISTERED NURSE Admitting Unavailable UNGERER, NAYE HOSPICE REGISTERED NURSE Primary Care Unavailable PROVIDER, UNKNOWN Consulting Unavailable UNGERER, NAYE HOSPICE REGISTERED NURSE Consulting Unavailable O'SULTANA, MELANIE HOSPICE REGISTERED NURSE Admitting Unavailable O'SULTANA, MELANIE HOSPICE REGISTERED NURSE Primary Care Unavailable O'SULTANA, MELANIE HOSPICE REGISTERED NURSE Attending Unavailable PROVIDER, UNKNOWN Consulting Unavailable UNGERER, NAYE HOSPICE REGISTERED NURSE Primary Care Unavailable UNGERER, NAYE HOSPICE REGISTERED NURSE Consulting Unavailable UNGERER, NAYE HOSPICE REGISTERED NURSE Attending Unavailable UNGERER, NAYE HOSPICE REGISTERED NURSE Admitting Unavailable PROVIDER, UNKNOWN Consulting Unavailable SHAINA ADLER MD Primary Care Unavailable SHAINA ADLER MD Attending Unavailable SHAINA ADLER MD Admitting Unavailable PREETI AVINA Admitting Unavailable MUKESH, PREETI T Primary Care Unavailable PREETI AVINA Attending Unavailable UNGERER, NAYE HOSPICE REGISTERED NURSE Consulting Unavailable PROVIDER, UNKNOWN Consulting Unavailable Dimitris HOSPICE REGISTERED NURSE-C, Falguni Primary Care Provider Dimitris HOSPICE REGISTERED NURSE-C, Falguni Attending Provider GABI MCLEOD Attending UnavailNADIYA Meyer Referring Unavailable ARLENE, P. MIKE Primary Care Unavailable ARLENE, P. MIKE Referring Unavailable ARLENE, P. MIKE Primary Care Unavailable Dimitris BLUNT-Falguni Russ Referring Provider Dr. Jersey Zendejas MD Attending Provider Jersey Zendejas Attending Unavailable Falguni Shanks Referring Unavailable Dimitris, Falguni Primary Care Unavailable Dimitris, Falguni Primary Care Unavailable Falguni Shanks Attending Unavailable Jersey Zendejas Consulting Unavailable Falguni Shanks Attending Unavailable Josehof, Falguni Primary Care Unavailable Allergies Allergy Classification Reported Allergen(s) Allergy Type Date of Onset Reaction(s) Facility (2 sources) Adhesive Tape; Translations: [ADHESIVE TAPE (ROSINS)] Propensity to adverse reactions (disorder) 8 AOF [facility] Repository (1 source) Acetaminophen; Translations: [acetaminophen] Drug Allergy Non-steroidal anti-inflammato ry agent (product) [facility] (1 source) Ibuprofen; Translations: [ibuprofen] Drug Allergy [facility] (5 sources) hydrOXYzine; Translations: [hydroxyzine] Drug Allergy 8 Anxiety [facility] (3 sources) Aspirin Drug Allergy 3 Other [facility] (3 sources) Aluminum aspirin Drug Allergy 8 [facility] (3 sources) buPROPion Drug Allergy 8 Itching [facility] (3 sources) *Adhesive Tape Propensity to adverse reactions 6 Itching, Rash [facility] (2 sources) Adhesive agent; Translations: [ADHESIVE] Propensity to adverse reactions to drug (disorder) 3 [facility] Repository (2 sources) hydrOXYzine; Translations: [HYDROXYZINE PAMOATE] Drug Allergy 3 [facility] Repository (1 source) Adhesive Tape; Translations: [TAPE] Propensity to adverse reactions (disorder) [facility] Repository (1 source) hydrOXYzine Drug Allergy [facility] Repository (1 source) UNKNOWN ANTI-INFLAMMATO RY MED Drug allergy (disorder) [facility] Repository (1 source) 10/12/17 (+) MRSA WOUND; Translations: [10/12/17 (+) MRSA WOUND] Propensity to adverse reactions (disorder) [facility] Repository (1 source) 03/11/19 (-) MRSA SCREEN NARES; Translations: [03/11/19 (-) MRSA SCREEN NARES] Propensity to adverse reactions (disorder) [facility] Repository (1 source) Aspirin Drug Allergy 5 [facility] Repository Medications Current Medications Medication Drug Class(es) Dates Sig (Normalized) Sig (Original) acetaminophen 325 mg / HYDROcodone bitartrate 5 mg oral tablet (1 source) Opioid Agonist Start: 10-02-2015 Hydrocodone Bit/Acetaminophen ([place] 5/325 Mg Tablet) 1 EACH Tablet Active [...] once daily D2000 Ultra Strength 50 MCG (2000 UT) [...] tab(s), 0 Refill(s), 11/30/22 16:48:00 EDT, Pharmacy: [facility], 152.4, cm, 10/31/22 4:22:00 [...] mouth once daily Omeprazole (Prilosec) [address] Active 40 MG PO Daily July 21, 2016 8:06pm pantoprazole 40 mg delayed release oral tablet (7 sources) Proton Pump Inhibitor Start: 02-21-2023 End: 06-15-2023 take 1 tablet by mouth once daily Pantoprazole [address] tablet Indications: Gastroesophageal reflux disease, unspecified whether esophagitis [...] BID, # 60 tab(s), 0 Refill(s), Pharmacy: [facility], 152.4, cm, 10/31/22 4:22:00 [...] qDay, # 60 tab(s), 0 Refill(s), Pharmacy: [facility] Start Date: 10/27/17 Status: Ordered Problems Active [...] Onset: 2 Episodic Deficiency and other anemia (4 sources) Iron deficiency anemia, unspecified; Translations: [Iron [...] Test Name Value Interpretation Reference Range Facility Prealbumin [id number] 5 Prealbumin [Mass/Vol] 21 mg/dL Normal 14-35 [facility] Comment on above: Order Comment: DR.RS DO ORDERED BMP,CBC,PREALBUMIN,ALBUMIN, AND FERRITIN JOSE RAUL.BELIA ORDERED CMP,CBCD,PREALBUMIN,IBC, AND FERRITIN Result Comment: Perf ormed at: - [facility] [address] [id number] Public Relations Professional: Lenny York PhD, Phone: [phone] Performed By: #### L 3300.8530, L100.0100, L500.4050, L503.6030, L503.2050 #### [facility] [address] [place], [address] CBC W/Diff, Automatedon 07-3 -2024 Absolute Lymph 2.85 X10 3/uL Normal 0.83-4.51 [facility] Comment on above: Order Comment: DR.RS DO ORDERED BMP,CBC,PREALBUMIN,ALBUMIN, AND FERRITIN HOSPICE REGISTERED [facility]UR[facility] ORDERED CMP,CBCD,PREALBUMIN,IBC, AND FERRITIN Performed By: #### L 3300.6400, L100.0100, L500.4050, L503.6030, L503.6550 #### [facility] [address] [place], [address] Absolute Neut 5.8 X10 3/uL Normal 2.0-7.7 [facility] Comment on above: Order Comment: DR.RS DO ORDERED BMP,CBC,PREALBUMIN,ALBUMIN, AND FERRITIN [facility]OS[facility] CMP,CBCD,PREALBUMIN,IBC, AND FERRITIN Performed By: #### L 3300.6400, L100.0100, L500.4050, L503.6030, L503.6550 #### [facility] [address] [place], [address] Basophils/100 WBC (Bld) 0.6 % Normal 0-1 [facility] Comment on above: Order Comment: DR.RS DO ORDERED BMP,CBC,PREALBUMIN,ALBUMIN, AND FERRITIN [facility]OSPICE REGISTER[facility] CMP,CBCD,PREALBUMIN,IBC, AND FERRITIN Performed By: #### L 3300.6400, L100.0100, L500.4050, L503.6030, L503.6550 #### [facility] [address] [place], [address] Eosinophils/100 WBC (Bld) 1.8 % Normal 0-5 [facility] Comment on above: Order Comment: DR.RS DO ORDERED BMP,CBC,PREALBUMIN,ALBUMIN, AND FERRITIN [facility]OSP[facility] CMP,CBCD,PREALBUMIN,IBC, AND FERRITIN Performed By: #### L 3300.6400, L100.0100, L500.4050, L503.6030, L503.6550 #### [facility] [address] [place], [address] Erythrocyte distribution width (RBC) [Ratio] 12.1 % Normal 11.6-14.6 [facility] Comment on above: Order Comment: DR.RS DO ORDERED BMP,CBC,PREALBUMIN,ALBUMIN, AND FERRITIN [facility]OSP[facility] CMP,CBCD,PREALBUMIN,IBC, AND FERRITIN Performed By: #### L 3300.6400, L100.0100, L500.4050, L503.6030, L503.6550 #### [facility] [address] [place], [address] ( Hematocrit (Bld) [Volume fraction] 39.9 % Normal 37-47 [facility] Comment on above: Order Comment: DR.RS DO ORDERED BMP,CBC,PREALBUMIN,ALBUMIN, AND FERRITIN [facility]OSPICE REGISTERED [facility]UR[facility] CMP,CBCD,PREALBUMIN,IBC, AND FERRITIN Performed By: #### L 3300.6400, L100.0100, L500.4050, L503.6030, L503.6550 #### [facility] [address] [place], [address] Hemoglobin (Bld) [Mass/Vol] 13.5 g/dL Normal 12.0-15.0 [facility] Comment on above: Order Comment: DR.RS DO ORDERED BMP,CBC,PREALBUMIN,ALBUMIN, AND FERRITIN HOSPICE REGISTERED [facility]UR[facility] ORDERED CMP,CBCD,PREALBUMIN,IBC, AND FERRITIN Performed By: #### L 3300.6400, L100.0100, L500.4050, L503.6030, L503.6550 #### [facility] [address] [place], [address] IG% 0.200 Normal 0.0-0.9 [facility] Comment on above: Order Comment: DR.RS DO ORDERED BMP,CBC,PREALBUMIN,ALBUMIN, AND FERRITIN HOSPICE REGISTERED NURSE[facility] ORDERED CMP,CBCD,PREALBUMIN,IBC, AND FERRITIN Result Comment: IG% - Immature Granulocytes (promyelocytes, myelocytes and metamyelocytes) > 1% indicates that a LEFT SHIFT is Present. Performed By: #### L 3300.6400, L100.0100, L500.4050, L503.6030, L503.6550 #### [facility] [address] [place], [address] Lymphocytes/100 WBC (Bld) 29.8 % Normal 19-41 [facility] Comment on above: Order Comment: DR.RS DO ORDERED BMP,CBC,PREALBUMIN,ALBUMIN, AND FERRITIN HOSPICE REGISTERED NURSE[facility] ORDERED CMP,CBCD,PREALBUMIN,IBC, AND FERRITIN Performed By: #### L 3300.6400, L100.0100, L500.4050, L503.6030, L503.6550 #### [facility] [address] [place], [address] MCH (RBC) [Entitic mass] 31.3 pg Normal 27.0-32.0 [facility] Comment on above: Order Comment: DR.RS DO ORDERED BMP,CBC,PREALBUMIN,ALBUMIN, AND FERRITIN HOSPICE REGISTERED [facility]UR[facility] CMP,CBCD,PREALBUMIN,IBC, AND FERRITIN Performed By: #### L 3300.6400, L100.0100, L500.4050, L503.6030, L503.6550 #### [facility] [address] [place], [address] MCHC (RBC) [Mass/Vol] 33.8 g/dL Normal 32-36 [facility] Comment on above: Order Comment: DR.RS DO ORDERED BMP,CBC,PREALBUMIN,ALBUMIN, AND FERRITIN HOSPICE REGISTERED NURSE[facility] ORDERED CMP,CBCD,PREALBUMIN,IBC, AND FERRITIN Performed By: #### L 3300.6400, L100.0100, L500.4050, L503.6030, L503.6550 #### [facility] [address] [place], [address] MCV (RBC) [Entitic vol] 92.6 fL Normal 81-99 [facility] Comment on above: Order Comment: DR.RS DO ORDERED BMP,CBC,PREALBUMIN,ALBUMIN, AND FERRITIN [facility]OSP[facility] REGISTERED [facility]UR[facility] ORDERED CMP,CBCD,PREALBUMIN,IBC, AND FERRITIN Performed By: #### L 3300.6400, L100.0100, L500.4050, L503.6030, L503.6550 #### [facility] [address] [place], [address] Monocytes/100 WBC (Bld) 6.6 % Normal 0-10 [facility] Comment on above: Order Comment: DR.RS DO ORDERED BMP,CBC,PREALBUMIN,ALBUMIN, AND FERRITIN HOSPICE REGISTERED NURSE[facility] ORDERED CMP,CBCD,PREALBUMIN,IBC, AND FERRITIN Performed By: #### L 3300.6400, L100.0100, L500.4050, L503.6030, L503.6550 #### [facility] [address] [place], [address] Neutrophils/100 WBC (Bld) 61.0 % Normal 47-70 [facility] Comment on above: Order Comment: DR.RS DO ORDERED BMP,CBC,PREALBUMIN,ALBUMIN, AND FERRITIN HOSPICE REGISTERED NURSE.[facility] ORDERED CMP,CBCD,PREALBUMIN,IBC, AND FERRITIN Performed By: #### L 3300.6400, L100.0100, L500.4050, L503.6030, L503.6550 #### [facility] [address] [place], [address] Nucleated RBC (Bld) [#/Vol] 0 10*3/uL Normal 0-5 [facility] Comment on above: Order Comment: DR.RS DO ORDERED BMP,CBC,PREALBUMIN,ALBUMIN, AND FERRITIN HOSPICE REGISTERED NURSE.[facility] ORDERED CMP,CBCD,PREALBUMIN,IBC, AND FERRITIN Performed By: #### L 3300.6400, L100.0100, L500.4050, L503.6030, L503.6550 #### [facility] [address] [place], [address] Platelet mean volume (Bld) [Entitic vol] 9.4 fL Normal 6.2-12.0 [facility] Comment on above: Order Comment: DR.RS DO ORDERED BMP,CBC,PREALBUMIN,ALBUMIN, AND FERRITIN HOSPICE REGISTERED NURSE.[facility] ORDERED CMP,CBCD,PREALBUMIN,IBC, AND FERRITIN Performed By: #### L 3300.6400, L100.0100, L500.4050, L503.6030, L503.6550 #### [facility] [address] [place], [address] Platelets (Bld) [#/Vol] 283 10*3/uL Normal 150-450 [facility] Comment on above: Order Comment: DR.RS DO ORDERED BMP,CBC,PREALBUMIN,ALBUMIN, AND FERRITIN HOSPICE REGISTERED NURSE.[facility] ORDERED CMP,CBCD,PREALBUMIN,IBC, AND FERRITIN Performed By: #### L 3300.6400, L100.0100, L500.4050, L503.6030, L503.6550 #### [facility] [address] [place], [address] RBC (Bld) [#/Vol] 4.31 10*6/uL Normal 4.2-5.4 [facility] Comment on above: Order Comment: DR.RS DO ORDERED BMP,CBC,PREALBUMIN,ALBUMIN, AND FERRITIN HOSPICE REGISTERED NURSE.[facility] ORDERED CMP,CBCD,PREALBUMIN,IBC, AND FERRITIN Performed By: #### L 3300.6400, L100.0100, L500.4050, L503.6030, L503.6550 #### [facility] [address] [place], [address] RDW SD 41.0 fl Normal 35.1-43.9 [facility] Comment on above: Order Comment: DR.RS DO ORDERED BMP,CBC,PREALBUMIN,ALBUMIN, AND FERRITIN HOSPICE REGISTERED NURSE.[facility] ORDERED CMP,CBCD,PREALBUMIN,IBC, AND FERRITIN Performed By: #### L 3300.6400, L100.0100, L500.4050, L503.6030, L503.6550 #### [facility] [address] [place], [address] WBC (Bld) [#/Vol] 9.6 10*3/uL Normal 4.4-11.0 [facility] Comment on above: Order Comment: DR.RS DO ORDERED BMP,CBC,PREALBUMIN,ALBUMIN, AND FERRITIN HOSPICE REGISTERED NURSE[facility] ORDERED CMP,CBCD,PREALBUMIN,IBC, AND FERRITIN Performed By: #### L 3300.6400, L100.0100, L500.4050, L503.6030, L503.6550 #### [facility] [address] [place], [address] Comprehensive Metabolic Prof ilon 11-14-2024 Albumin [Mass/Vol] 4.3 g/dL Normal 3.5-5.0 [facility] Comment on above: Order Comment: DR.RS DO ORDERED BMP,CBC,PREALBUMIN,ALBUMIN, AND FERRITIN HOSPICE REGISTERED NURSE.[facility] ORDERED CMP,CBCD,PREALBUMIN,IBC, AND FERRITIN Performed By: #### L 3300.6400, L100.0100, L500.4050, L503.6030, L503.6550 #### [facility] [address] [place], [address] Albumin/Globulin [Mass ratio] 1.6 {ratio} Normal 0.9-2.4 [facility] Comment on above: Order Comment: DR.RS DO ORDERED BMP,CBC,PREALBUMIN,ALBUMIN, AND FERRITIN HOSPICE REGISTERED NURSE.[facility] ORDERED CMP,CBCD,PREALBUMIN,IBC, AND FERRITIN Performed By: #### L 3300.6400, L100.0100, L500.4050, L503.6030, L503.6550 #### [facility] [address] [place], [address] ALK PHOS 61 U/L Normal 35-104 [facility] Comment on above: Order Comment: DR.RS DO ORDERED BMP,CBC,PREALBUMIN,ALBUMIN, AND FERRITIN HOSPICE REGISTERED NURSE.[facility] ORDERED CMP,CBCD,PREALBUMIN,IBC, AND FERRITIN Performed By: #### L 3300.6400, L100.0100, L500.4050, L503.6030, L503.6550 #### [facility] [address] [place], [address] ALT [Catalytic activity/Vol] 9 U/L Normal <=34 [facility] Comment on above: Order Comment: DR.RS DO ORDERED BMP,CBC,PREALBUMIN,ALBUMIN, AND FERRITIN HOSPICE REGISTERED NURSE.[facility] ORDERED CMP,CBCD,PREALBUMIN,IBC, AND FERRITIN Performed By: #### L 3300.6400, L100.0100, L500.4050, L503.6030, L503.6550 #### [facility] [address] [place], [address] AST [Catalytic activity/Vol] 15 U/L Normal <=31 [facility] Comment on above: Order Comment: DR.RS DO ORDERED BMP,CBC,PREALBUMIN,ALBUMIN, AND FERRITIN HOSPICE REGISTERED NURSE.[facility] ORDERED CMP,CBCD,PREALBUMIN,IBC, AND FERRITIN Performed By: #### L 3300.6400, L100.0100, L500.4050, L503.6030, L503.6550 #### [facility] [address] [place], [address] Bilirubin [Mass/Vol] 0.33 mg/dL Normal 0.00-1.30 [facility] Comment on above: Order Comment: DR.RS DO ORDERED BMP,CBC,PREALBUMIN,ALBUMIN, AND FERRITIN HOSPICE REGISTERED NURSE.[facility] ORDERED CMP,CBCD,PREALBUMIN,IBC, AND FERRITIN Performed By: #### L 3300.6400, L100.0100, L500.4050, L503.6030, L503.6550 #### [facility] [address] [place], [address] BUN/CRE 15.9 RATIO Normal 10-20 [facility] Comment on above: Order Comment: DR.RS DO ORDERED BMP,CBC,PREALBUMIN,ALBUMIN, AND FERRITIN HOSPICE REGISTERED NURSE[facility] ORDERED CMP,CBCD,PREALBUMIN,IBC, AND FERRITIN Performed By: #### L 3300.6400, L100.0100, L500.4050, L503.6030, L503.6550 #### [facility] [address] [place], [address] Calcium [Mass/Vol] 9.8 mg/dL Normal 7.6-11.0 [facility] Comment on above: Order Comment: DR.RS DO ORDERED BMP,CBC,PREALBUMIN,ALBUMIN, AND FERRITIN HOSPICE REGISTERED NURSE.[facility] ORDERED CMP,CBCD,PREALBUMIN,IBC, AND FERRITIN Performed By: #### L 3300.6400, L100.0100, L500.4050, L503.6030, L503.6550 #### [facility] [address] [place], [address] Chloride [Moles/Vol] 104 mmol/L Normal 98-108 [facility] Comment on above: Order Comment: DR.RS DO ORDERED BMP,CBC,PREALBUMIN,ALBUMIN, AND FERRITIN HOSPICE REGISTERED NURSE.[facility] ORDERED CMP,CBCD,PREALBUMIN,IBC, AND FERRITIN Performed By: #### L 3300.6400, L100.0100, L500.4050, L503.6030, L503.6550 #### [facility] [address] [place], [address] CO2 [Moles/Vol] 20.7 mmol/L Low 21.0-32.0 [facility] Comment on above: Order Comment: DR.RS DO ORDERED BMP,CBC,PREALBUMIN,ALBUMIN, AND FERRITIN HOSPICE REGISTERED NURSE.[facility] ORDERED CMP,CBCD,PREALBUMIN,IBC, AND FERRITIN Performed By: #### L 3300.6400, L100.0100, L500.4050, L503.6030, L503.6550 #### [facility] [address] [place], [address] Creatinine [Mass/Vol] 0.54 mg/dL Low 0.70-1.20 [facility] Comment on above: Order Comment: DR.RS DO ORDERED BMP,CBC,PREALBUMIN,ALBUMIN, AND FERRITIN HOSPICE REGISTERED NURSE.[facility] ORDERED CMP,CBCD,PREALBUMIN,IBC, AND FERRITIN Performed By: #### L 3300.6400, L100.0100, L500.4050, L503.6030, L503.6550 #### [facility] [address] [place], [address] GAP 14 Normal 5-15 [facility] Comment on above: Order Comment: DR.RS DO ORDERED BMP,CBC,PREALBUMIN,ALBUMIN, AND FERRITIN HOSPICE REGISTERED NURSE.[facility] ORDERED CMP,CBCD,PREALBUMIN,IBC, AND FERRITIN Performed By: #### L 3300.6400, L100.0100, L500.4050, L503.6030, L503.6550 #### [facility] [address] [place], [place], [address] GFR/1.73 sq M.predicted among non-blacks MDRD (S/P/Bld) [Vol rate/Area] 123 mL/min/{1.73_m2} Normal >60 [facility] Comment on above: Order Comment: DR.RS DO ORDERED BMP,CBC,PREALBUMIN,ALBUMIN, AND FERRITIN HOSPICE REGISTERED NURSE.[facility] ORDERED CMP,CBCD,PREALBUMIN,IBC, AND FERRITIN Result Comment: mL/m in/1.73m2 CKD-EPI Creatinine Equation (2020) Performed By: #### L 3300.6400, L100.0100, L500.4050, L503.6030, L503.6550 #### [facility] [address] [place], [address] Globulin (S) [Mass/Vol] 2.7 g/dL Normal 2.2-4.2 [facility] Comment on above: Order Comment: DR.RS DO ORDERED BMP,CBC,PREALBUMIN,ALBUMIN, AND FERRITIN HOSPICE REGISTERED NURSE.[facility] ORDERED CMP,CBCD,PREALBUMIN,IBC, AND FERRITIN Performed By: #### L 3300.6400, L100.0100, L500.4050, L503.6030, L503.6550 #### [facility] [address] [place], [address] Glucose [Mass/Vol] 88 mg/dL Normal 70-99 [facility] Comment on above: Order Comment: DR.RS DO ORDERED BMP,CBC,PREALBUMIN,ALBUMIN, AND FERRITIN HOSPICE REGISTERED NURSE.[facility] ORDERED CMP,CBCD,PREALBUMIN,IBC, AND FERRITIN Performed By: #### L 3300.6400, L100.0100, L500.4050, L503.6030, L503.6550 #### [facility] [address] [place], [address] Potassium [Moles/Vol] 3.9 mmol/L Normal 3.3-5.1 [facility] Comment on above: Order Comment: DR.RS DO ORDERED BMP,CBC,PREALBUMIN,ALBUMIN, AND FERRITIN HOSPICE REGISTERED NURSE.[facility] ORDERED CMP,CBCD,PREALBUMIN,IBC, AND FERRITIN Performed By: #### L 3300.6400, L100.0100, L500.4050, L503.6030, L503.6550 #### [facility] [address] [place], [address] Sodium [Moles/Vol] 138 mmol/L Normal 133-145 [facility] Comment on above: Order Comment: DR.RS DO ORDERED BMP,CBC,PREALBUMIN,ALBUMIN, AND FERRITIN HOSPICE REGISTERED NURSE.[facility] ORDERED CMP,CBCD,PREALBUMIN,IBC, AND FERRITIN Performed By: #### L 3300.6400, L100.0100, L500.4050, L503.6030, L503.6550 #### [facility] [address] [place], [address] T PROT 7.0 g/dL Normal 5.9-8.4 [facility] Comment on above: Order Comment: DR.RS DO ORDERED BMP,CBC,PREALBUMIN,ALBUMIN, AND FERRITIN HOSPICE REGISTERED NURSE.[facility] ORDERED CMP,CBCD,PREALBUMIN,IBC, AND FERRITIN Performed By: #### L 3300.6400, L100.0100, L500.4050, L503.6030, L503.6550 #### [facility] [address] [place], [address] Urea nitrogen [Mass/Vol] 9 mg/dL Normal 4-19 [facility] Comment on above: Order Comment: DR.RS DO ORDERED BMP,CBC,PREALBUMIN,ALBUMIN, AND FERRITIN HOSPICE REGISTERED NURSE.[facility] ORDERED CMP,CBCD,PREALBUMIN,IBC, AND FERRITIN Performed By: #### L 3300.6400, L100.0100, L500.4050, L503.6030, L503.6550 #### [facility] [address] [place], [address] Ferritinon 11-14-2024 Ferritin [Mass/Vol] 98 ng/mL Normal 22-378 [facility] Comment on above: Order Comment: DR.RS DO ORDERED BMP,CBC,PREALBUMIN,ALBUMIN, AND FERRITIN HOSPICE REGISTERED NURSE.[facility] ORDERED CMP,CBCD,PREALBUMIN,IBC, AND FERRITIN Performed By: #### L 3300.6400, L100.0100, L500.4050, L503.6030, L503.6550 #### [facility] [address] [place], [address] Iron+Iron Binding Capacityon 11-14-2024 Iron [Mass/Vol] 37 ug/dL Low 50-170 [facility] Comment on above: Order Comment: DR.RS DO ORDERED BMP,CBC,PREALBUMIN,ALBUMIN, AND FERRITIN HOSPICE REGISTERED [facility]UR[facility] ORDERED CMP,CBCD,PREALBUMIN,IBC, AND FERRITIN Performed By: #### L 3300.6400, L100.0100, L500.4050, L503.6030, L503.6550 #### [facility] [address] [place], [place], [id number] IRON SATURATION 15.0 Normal 13-59 [facility] Comment on above: Order Comment: DR.RS DO ORDERED BMP,CBC,PREALBUMIN,ALBUMIN, AND FERRITIN HOSPICE REGISTERED NURSE[facility] ORDERED CMP,CBCD,PREALBUMIN,IBC, AND FERRITIN Performed By: #### L 3300.6400, L100.0100, L500.4050, L503.6030, L503.6550 #### [facility] [address] [place], [place], [id number] TIBC 252 ug/dL Normal 250-450 [facility] Comment on above: Order Comment: DR.RS DO ORDERED BMP,CBC,PREALBUMIN,ALBUMIN, AND FERRITIN HOSPICE REGISTERED [facility] ORDERED CMP,CBCD,PREALBUMIN,IBC, AND FERRITIN Performed By: #### L 3300.6400, L100.0100, L500.4050, L503.6030, L503.6550 #### [facility] [address] [place], [address] UIBC 215 ug/dL Low 228-428 [facility] Comment on above: Order Comment: DR.RS DO ORDERED BMP,CBC,PREALBUMIN,ALBUMIN, AND FERRITIN HOSPICE REGISTERED NURSE.[facility] ORDERED CMP,CBCD,PREALBUMIN,IBC, AND FERRITIN Performed By: #### L 3300.6400, L100.0100, L500.4050, L503.6030, L503.6550 #### [facility] [address] [place], [address] Plastic Surgery Visit Report on 11-01-2024 Plastic Surgery Visit Report [facility] Plastic Reconstructive Surgery [address], [address] [place] [address] OFFICE VISIT Date of Service: 11/01/24 MR#: [id number] Acct: [id number] Name: ZACK JAMESON Rep #: [id number] : 1990 Provider: Dr. 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 She had a consultation at [facility] for panniculectomy and they recommended that she [...] would be a good candidate for a [id number] panniculectomy. Her pannus overhangs the pubic symphysis [...] My cuto (more content not included)... Normal [facility] Absolute lymphocyte countOrd ered By: Falguni Shanks on 08-27-2024 Lymphocytes Auto (Unsp spec) [#/Vol] 2.38 10*3/uL 0.83-4.51 [facility] Absolute neutrophil countOrd ered By: Falguni Shanks on 08-27-2024 Neutrophils (Bld) [#/Vol] 4.1 10*3/uL 2.0-7.7 [facility] Anion gap in Serum or Plasma Ordered By: Falguni Shanks on 08-27-2024 Anion gap [Moles/Vol] 12 mmol/L 5-15 [facility] Automated lymphocyte count a s percentage of total leukocytesOrdered By: Falguni Shanks on 08-27-2024 Lymphocytes/100 WBC Auto (Unsp spec) 33.2 % 19-41 [facility] BUN/creatinine ratioOrdered By: Falguni Shanks on 08-27-2024 Urea nitrogen/Creatinine [Mass ratio] 26.1 mg/mg High 10-20 [facility] Basophil percentageOrdered B y: Falguni Shanks on 08-27-2024 Basophils/100 WBC (Bld) 1.0 % 0-1 [facility] Bilirubin, totalOrdered By: Falguni Shanks on 08-27-2024 Bilirubin [Mass/Vol] 0.26 mg/dL 0.00-1.30 [facility] CBC W/Diff, Automatedon 08-15 Absolute Lymph 2.38 X10 3/uL Normal 0.83-4.51 [facility] Comment on above: Performed By: #### L 503.6030, L100.0100, L503.0106, L501.9985, L503.6550, L500.4050 #### [facility] [address] [place], [address] Absolute Neut 4.1 X10 3/uL Normal 2.0-7.7 [facility] Comment on above: Performed By: #### L 503.6030, L100.0100, L503.0106, L501.9985, L503.6550, L500.4050 #### [facility] [address] [place], [address] Basophils/100 WBC (Bld) 1.0 % Normal 0-1 [facility] Comment on above: Performed By: #### L 503.6030, L100.0100, L503.0106, L501.9985, L503.6550, L500.4050 #### [facility] [address] [place], [address] Eosinophils/100 WBC (Bld) 2.0 % Normal 0-5 [facility] Comment on above: Performed By: #### L 503.6030, L100.0100, L503.0106, L501.9985, L503.6550, L500.4050 #### [facility] [address] [place], [address] Erythrocyte distribution width (RBC) [Ratio] 12.2 % Normal 11.6-14.6 [facility] Comment on above: Performed By: #### L 503.6030, L100.0100, L503.0106, L501.9985, L503.6550, L500.4050 #### [facility] [address] [place], [address] Hematocrit (Bld) [Volume fraction] 38.2 % Normal 37-47 [facility] Comment on above: Performed By: #### L 503.6030, L100.0100, L503.0106, L501.9985, L503.6550, L500.4050 #### [facility] [address] [place], [address] Hemoglobin (Bld) [Mass/Vol] 13.0 g/dL Normal 12.0-15.0 [facility] Comment on above: Performed By: #### L 503.6030, L100.0100, L503.0106, L501.9985, L503.6550, L500.4050 #### [facility] [address] [place], [address] IG% 0.300 Normal 0.0-0.9 [facility] Comment on above: Result Comment: IG% - Immature Granulocytes (promyelocytes, myelocytes and metamyelocytes) > 1% indicates that a LEFT SHIFT is Present. Performed By: #### L 503.6030, L100.0100, L503.0106, L501.9985, L503.6550, L500.4050 #### [facility] [address] [place], [address] Lymphocytes/100 WBC (Bld) 33.2 % Normal 19-41 [facility] Comment on above: Performed By: #### L 503.6030, L100.0100, L503.0106, L501.9985, L503.6550, L500.4050 #### [facility] [address] [place], [address] MCH (RBC) [Entitic mass] 31.9 pg Normal 27.0-32.0 [facility] Comment on above: Performed By: #### L 503.6030, L100.0100, L503.0106, L501.9985, L503.6550, L500.4050 #### [facility] [address] [place], [address] MCHC (RBC) [Mass/Vol] 34.0 g/dL Normal 32-36 [facility] Comment on above: Performed By: #### L 503.6030, L100.0100, L503.0106, L501.9985, L503.6550, L500.4050 #### [facility] [address] [place], [address] MCV (RBC) [Entitic vol] 93.6 fL Normal 81-99 [facility] Comment on above: Performed By: #### L 503.6030, L100.0100, L503.0106, L501.9985, L503.6550, L500.4050 #### [facility] [address] [place], [address] Monocytes/100 WBC (Bld) 6.4 % Normal 0-10 [facility] Comment on above: Performed By: #### L 503.6030, L100.0100, L503.0106, L501.9985, L503.6550, L500.4050 #### [facility] [address] [place], [address] Neutrophils/100 WBC (Bld) 57.1 % Normal 47-70 [facility] Comment on above: Performed By: #### L 503.6030, L100.0100, L503.0106, L501.9985, L503.6550, L500.4050 #### [facility] [address] [place], [address] Nucleated RBC (Bld) [#/Vol] 0 10*3/uL Normal 0-5 [facility] Comment on above: Performed By: #### L 503.6030, L100.0100, L503.0106, L501.9985, L503.6550, L500.4050 #### [facility] [address] [place], [address] Platelet mean volume (Bld) [Entitic vol] 9.3 fL Normal 6.2-12.0 [facility] Comment on above: Performed By: #### L 503.6030, L100.0100, L503.0106, L501.9985, L503.6550, L500.4050 #### [facility] [address] [place], [address] Platelets (Bld) [#/Vol] 297 10*3/uL Normal 150-450 [facility] Comment on above: Performed By: #### L 503.6030, L100.0100, L503.0106, L501.9985, L503.6550, L500.4050 #### [facility] [address] [place], [address] RBC (Bld) [#/Vol] 4.08 10*6/uL Low 4.2-5.4 [facility] Comment on above: Performed By: #### L 503.6030, L100.0100, L503.0106, L501.9985, L503.6550, L500.4050 #### [facility] [address] [place], [address] RDW SD 41.9 fl Normal 35.1-43.9 [facility] Comment on above: Performed By: #### L 503.6030, L100.0100, L503.0106, L501.9985, L503.6550, L500.4050 #### [facility] [address] [place], [address] WBC (Bld) [#/Vol] 7.2 10*3/uL Normal 4.4-11.0 [facility] Comment on above: Performed By: #### L 503.6030, L100.0100, L503.0106, L501.9985, L503.6550, L500.4050 #### [facility] [address] [place], [address] Carbon dioxide, total [Moles /volume] in Central venous bloodOrdered By: Falguni Shanks on 08-27-2024 CO2 [Moles/Vol] 19.6 mmol/L Low 21.0-32.0 [facility] Chloride assayOrdered By: Evelin Shanks on 08-27-2024 Chloride [Moles/Vol] 105 mmol/L 98-108 [facility] Comprehensive Metabolic Prof ilon 08-27-2024 Albumin [Mass/Vol] 4.1 g/dL Normal 3.5-5.0 [facility] Comment on above: Performed By: #### L 503.6030, L100.0100, L503.0106, L501.9985, L503.6550, L500.4050 #### [facility] [address] [place], [address] Albumin/Globulin [Mass ratio] 1.6 {ratio} Normal 0.9-2.4 [facility] Comment on above: Performed By: #### L 503.6030, L100.0100, L503.0106, L501.9985, L503.6550, L500.4050 #### [facility] [address] [place], [address] ALK PHOS 53 U/L Normal 35-104 [facility] Comment on above: Performed By: #### L 503.6030, L100.0100, L503.0106, L501.9985, L503.6550, L500.4050 #### [facility] [address] [place], [address] ALT [Catalytic activity/Vol] 14 U/L Normal <=34 [facility] Comment on above: Performed By: #### L 503.6030, L100.0100, L503.0106, L501.9985, L503.6550, L500.4050 #### [facility] [address] [place], [address] AST [Catalytic activity/Vol] 18 U/L Normal <=31 [facility] Comment on above: Performed By: #### L 503.6030, L100.0100, L503.0106, L501.9985, L503.6550, L500.4050 #### [facility] [address] [place], [address] Bilirubin [Mass/Vol] 0.26 mg/dL Normal 0.00-1.30 [facility] Comment on above: Performed By: #### L 503.6030, L100.0100, L503.0106, L501.9985, L503.6550, L500.4050 #### [facility] [address] [place], [address] BUN/CRE 26.1 RATIO High 10-20 [facility] Comment on above: Performed By: #### L 503.6030, L100.0100, L503.0106, L501.9985, L503.6550, L500.4050 #### [facility] [address] [place], [address] Calcium [Mass/Vol] 9.4 mg/dL Normal 7.6-11.0 [facility] Comment on above: Performed By: #### L 503.6030, L100.0100, L503.0106, L501.9985, L503.6550, L500.4050 #### [facility] [address] [place], [address] Chloride [Moles/Vol] 105 mmol/L Normal 98-108 [facility] Comment on above: Performed By: #### L 503.6030, L100.0100, L503.0106, L501.9985, L503.6550, L500.4050 #### [facility] [address] [place], [address] CO2 [Moles/Vol] 19.6 mmol/L Low 21.0-32.0 [facility] Comment on above: Performed By: #### L 503.6030, L100.0100, L503.0106, L501.9985, L503.6550, L500.4050 #### [facility] [address] [place], [address] Creatinine [Mass/Vol] 0.56 mg/dL Low 0.70-1.20 [facility] Comment on above: Performed By: #### L 503.6030, L100.0100, L503.0106, L501.9985, L503.6550, L500.4050 #### [facility] [address] [place], [place], [id number] (483) GAP 12 Normal 5-15 [facility] Comment on above: Performed By: #### L 503.6030, L100.0100, L503.0106, L501.9985, L503.6550, L500.4050 #### [facility] [address] [place], [address] GFR/1.73 sq M.predicted among non-blacks MDRD (S/P/Bld) [Vol rate/Area] 123 mL/min/{1.73_m2} Normal >60 [facility] Comment on above: Result Comment: mL/m in/1.73m2 CKD-EPI Creatinine Equation (2020) Performed By: #### L 503.6030, L100.0100, L503.0106, L501.9985, L503.6550, L500.4050 #### [facility] [address] [place], [address] Globulin (S) [Mass/Vol] 2.5 g/dL Normal 2.2-4.2 [facility] Comment on above: Performed By: #### L 503.6030, L100.0100, L503.0106, L501.9985, L503.6550, L500.4050 #### [facility] [address] [place], [address] Glucose [Mass/Vol] 92 mg/dL Normal 70-99 [facility] Comment on above: Performed By: #### L 503.6030, L100.0100, L503.0106, L501.9985, L503.6550, L500.4050 #### [facility] [address] [place], [address] Potassium [Moles/Vol] 3.9 mmol/L Normal 3.3-5.1 [facility] Comment on above: Performed By: #### L 503.6030, L100.0100, L503.0106, L501.9985, L503.6550, L500.4050 #### [facility] [address] [place], [address] Sodium [Moles/Vol] 137 mmol/L Normal 133-145 [facility] Comment on above: Performed By: #### L 503.6030, L100.0100, L503.0106, L501.9985, L503.6550, L500.4050 #### [facility] [address] [place], [address] T PROT 6.7 g/dL Normal 5.9-8.4 [facility] Comment on above: Performed By: #### L 503.6030, L100.0100, L503.0106, L501.9985, L503.6550, L500.4050 #### [facility] [address] [place], [address] Urea nitrogen [Mass/Vol] 15 mg/dL Normal 4-19 [facility] Comment on above: Performed By: #### L 503.6030, L100.0100, L503.0106, L501.9985, L503.6550, L500.4050 #### [facility] [address] [facility] [place], [address] Eosinophil percentageOrdered By: Falguni hSanks on 08-27-2024 Eosinophils/100 WBC (Bld) 2.0 % 0-5 [facility] Erythrocyte distribution wid th ratioOrdered By: Falgunidona Shanks on 08-27-2024 Erythrocyte distribution width (RBC) [Ratio] 12.2 % 11.6-14.6 [facility] Erythrocyte distribution wid th standard deviationOrdered By: Falgunidona Shanks on 08-27-2024 Erythrocyte distribution width (RBC) [Ratio] 41.9 fl 35.1-43.9 [facility] Ferritinon 08-27-2024 Ferritin [Mass/Vol] 70 ng/mL Normal 22-378 [facility] Comment on above: Performed By: #### L 503.6030, L100.0100, L503.0106, L501.9985, L503.6550, L500.4050 #### [facility] [address] [facility] [place], [place], [address] Glomerular filtration rate ( GFR) estimation/1.73 sq m using serum, plasma, or whole bOrdered By: Falguni Shanks on 08-27-2024 GFR/1.73 sq M.predicted among non-blacks MDRD (S/P/Bld) [Vol rate/Area] 123 mL/min/{1.73_m2} >60 [facility] Comment on above: mL/min/1.73m2 CKD-EP I Creatinine Equation (2020) Hematocrit Auto (Bld) [Volum e fraction]Ordered By: Falguni Shanks on 08-27-2024 Hematocrit (Bld) [Volume fraction] 38.2 % 37-47 [facility] Hemoglobin A1con 08-27-2024 HbA1c (Bld) [Mass fraction] 4.7 % Normal <=5.6 [facility] Comment on above: Result Comment: Norm al < 5.7 % Prediabetic 5.7 - 6.4 % Diabetic >or= 6.5 % Please note range changes. Performed By: #### L 503.6030, L100.0100, L503.0106, L501.9985, L503.6550, L500.4050 #### [facility] [address] [place], [address] Hemoglobin A1c percentageOrd ered By: Falguni Shanks on 08-27-2024 HbA1c (Bld) [Mass fraction] 4.7 % <5.7 [facility] Comment on above: Normal < 5.7 % Predi abetic 5.7 - 6.4 % Diabetic >or= 6.5 % Please note range changes. Hemoglobin measurementOrdere d By: Falguni Shanks on 08-27-2024 Hemoglobin (Bld) [Mass/Vol] 13.0 g/dL 12.0-15.0 [facility] Immature granulocytes/100 WB C Auto (Bld)Ordered By: Falgunidona Shanks on 08-27-2024 Immature granulocytes/100 WBC (Bld) 0.300 % 0.0-0.9 [facility] Comment on above: IG% - Immature Granu locytes (promyelocytes, myelocytes and metamyelocytes) > 1% indicates that a LEFT SHIFT is Present. Iron measurement (mass/mass) Ordered By: Falguni Shanks on 08-27-2024 Iron (Unsp spec) [Mass/Mass] 89 ug/dL 50-170 [facility] Iron+Iron Binding Capacityon 08-27-2024 TIBC 224 ug/dL Low 250-450 [facility] Comment on above: Performed By: #### L 503.6030, L100.0100, L503.0106, L501.9985, L503.6550, L500.4050 #### [facility] [address] [place], [address] Laboratory - Chemistry and C hemistry - challengeOrdered By: Falguni Shanks on 08-27-2024 AST [Catalytic activity/Vol] 18 U/L <32 [facility] MCV (mean corpuscular volume ) determinationOrdered By: Falguni Shanks on 08-27-2024 MCV (RBC) [Entitic vol] 93.6 fL 81-99 [facility] Mean corpuscular hemoglobin (MCH) determinationOrdered By: Falguni Shanks on 08-27-2024 MCH (RBC) [Entitic mass] 31.9 pg 27.0-32.0 [facility] Mean corpuscular hemoglobin concentration (MCHC) determinationOrdered By: Falguni Shanks on 08-27-2024 MCHC (RBC) [Mass/Vol] 34.0 g/dL 32-36 [facility] Mean platelet volume determi nationOrdered By: Falguni Shanks on 08-27-2024 Platelet mean volume (Bld) [Entitic vol] 9.3 fL 6.2-12.0 [facility] Monocyte percentageOrdered B y: Falguni Shanks on 08-27-2024 Monocytes/100 WBC (Bld) 6.4 % 0-10 [facility] Neutrophil percentageOrdered By: Falgunidona Shnaks on 08-27-2024 Neutrophils/100 WBC (Bld) 57.1 % 47-70 [facility] No Panel InformationOrdered By: Falguni Shanks on 08-27-2024 Unsaturated Iron Binding Capacity 135 ug/dL Low 228-428 [facility] Nucleated red blood cell per centageOrdered By: Falguni Shanks 08-27-2024 Nucleated RBC/100 WBC (Bld) [Ratio] 0 % 0-5 [facility] Platelet countOrdered By: Evelin Shanks on 08-27-2024 Platelets (Bld) [#/Vol] 297 10*3/uL 150-450 [facility] Potassium measurement (mass/ volume)Ordered By: Falguni Shanks on 08-27-2024 Potassium (Unsp spec) [Mass/Vol] 3.9 mmol/L 3.3-5.1 [facility] RBC Auto (Bld) [#/Vol]Ordere d By: Falguni Shanks on 08-27-2024 RBC (Bld) [#/Vol] 4.08 10*6/uL Low 4.2-5.4 [facility] Serum creatinine measurement (mass/volume)Ordered By: Falguni Shanks on 08-27-2024 Creatinine [Mass/Vol] 0.56 mg/dL Low 0.70-1.20 [facility] Serum globulin measurementOr dered By: Falguni Shanks on 08-27-2024 Globulin (S) [Mass/Vol] 2.5 g/dL 2.2-4.2 [facility] Serum glucose measurement (m ass/volume)Ordered By: Falguni Shanks on 08-27-2024 Glucose [Mass/Vol] 92 mg/dL 70-99 [facility] Serum or plasma alanine rebollar otransferase (ALT) measurementOrdered By: Falguni Shanks on 08-27-2024 ALT [Catalytic activity/Vol] 14 U/L <35 [facility] Serum or plasma albumin ronni urement (mass/volume)Ordered By: Falguni Shanks on 08-27-2024 Albumin [Mass/Vol] 4.1 g/dL 3.5-5.0 [facility] Serum or plasma albumin/glob ulin mass ratioOrdered By: Falguni Shanks on 08-27-2024 Albumin/Globulin [Mass ratio] 1.6 {ratio} 0.9-2.4 [facility] Serum or plasma alkaline marcelo sphatase measurementOrdered By: Falguni Shanks on 08-27-2024 ALP [Catalytic activity/Vol] 53 U/L 35-104 [facility] Serum or plasma calcium ronni urement (mass/volume)Ordered By: Falguni Shanks on 08-27-2024 Calcium [Mass/Vol] 9.4 mg/dL 7.6-11.0 [facility] Serum or plasma ferritin negra surement (mass/volume)Ordered By: Falguni Shanks on 08-27-2024 Ferritin [Mass/Vol] 70 ng/mL 22-378 [facility] Serum or plasma iron saturat ion measurement (mass fraction)Ordered By: Falguni Shanks on 08-27-2024 Iron saturation [Mass fraction] 39.7 % 13-59 [facility] Comment on above: Previous reported re sult: 40.0 %Edited by: SARA on 08/27/24:1527 AMENDED REPORT 08/27/24 1527 IRON SATURATION previously reported as: 40.0 % Serum or plasma urea nitroge n measurement (mass/volume)Ordered By: Falguni Shanks on 08-27-2024 Urea nitrogen [Mass/Vol] 15 mg/dL 4-19 [facility] Sodium levelOrdered By: Luisannabel guzman Dimitris on 08-27-2024 Sodium [Moles/Vol] 137 mmol/L 133-145 [facility] Total proteinOrdered By: Luis rodriguezy Dimitris on 08-27-2024 Protein [Mass/Vol] 6.7 g/dL 5.9-8.4 [facility] Vitamin B12on 08-27-2024 Cobalamin (Vitamin B12) [Mass/Vol] 3557 pg/mL High 180-914 [facility] Comment on above: Performed By: #### L 3300.6400, L100.0100, L500.4050, L503.6030, L503.6550 #### [facility] [address] [place], [address] Vitamin B12 ser/plasOrdered By: Falguni Shanks on 08-27-2024 Cobalamin (Vitamin B12) [Mass/Vol] 3557 pg/mL High 180-914 [facility] White blood cell (WBC) count Ordered By: Falguni Shanks on 08-27-2024 WBC (Bld) [#/Vol] 7.2 10*3/uL 4.4-11.0 [facility] OPERATIVE PROCEDURESon 07-08 OPERATIVE PROCEDURES [facility] OPERATIVE REPORT NAME ACCOUNT SEX AGE ADMIT DISCHARGE PT MED. RECORD# NUMBER DATE DATE TYPE ZACK JAMESON [id number] 33 06/26/24 2 L [id number] ROOM: [facility] DATE OF : 1990 DICTATING PHYSICIAN: Preeti Avina DATE OF SURGERY: June 26, 2024 SURGEON: Preeti Avina MD SAND ANALYST: Sanchez Jerome CSA ANESTHESIOLOGIST: Stewart Hayes CRNA [...] Preeti Avina MD 06/26/24 08:29 JOB #: [id number] Transcribed By: geoffrey 06/26/24 08:49 Electronically signed by: E-SIGN DR. AVINA 07/08/24 12:25 Page 2 of 2 ZACK JAMESON Operative Report Normal [facility] Final Surgical Pathology Rep [facility] 06-28-2024 Final Surgical Pathology Report . Pathology Reports Accession: Collected Date/Time: Received Date/Time: Pathologist: [id number] 06/26/2024 07:50 EDT 06/27/2024 10:23 EDT MD FERN BAUER Final Surgical Pathology Report DIAGNOSIS: SOFT TISSUE, BACK, EXCISION: - LIPOMA COMMENT: [facility] [id number] CLINICAL INFORMATION: BENIGN NEOPLASM OF SOFT TISSUE OF BACK SPECIMEN: A SOFT TISSUE, BACK GROSS DESCRIPTION: All parts labelled with patient name and [id number] Received in formalin labelled back soft tissue Is a yellow smooth portion of adipose tissue measuring 4.7 x 4 x 1.5 cm. Tissue is sectioned to reveal yellow, glistening, homogeneous cut surfaces with no areas of hemorrhage or necrosis identified. RS-1 Jersey Wade, Pathologists' It Communications Specialist (ASCP) Performed by JERSEY WADE MICROSCOPIC DESCRIPTION: The microscopic examination is performed, except in the case of Gross Only. Verified by Pathology Report verified by [facility] FERN BAUER MD Sign out Date: 06/28/2024 14:04 Performing Lab: [facility], [address] [place] [address] Pathology Dept Disclaimer If ancillary studies were utilized, the following Laboratory Developed Test (LDT) disclaimer will apply: Under CLIA requirements, [facility] is qualified to perform high complexity testing. For all ancillary stains, positive and negative controls stain appropriately. Performance characteristics of immunohistochemical and chromogenic in-situ hybridization tests have been determined by [facility]. These tests are used for clinical purposes, They should not be regarded as investigational or for research. . Normal [facility] MA[facility] SERUM QUALon 06-26 EXTERNAL QC DONE? YES Normal [facility] Comment on above: Performed By: #### 2 89671 #### [facility],[address] [place] [address] INTERNAL QC PASS Normal [facility] Comment on above: Performed By: #### 2 42991 #### [facility],[address] [place] [address] SER Negative Normal NEGATIVE [facility] Comment on above: Performed By: #### 2 64124 #### [facility],[address] [facility] [address] [employer] Director Cytology Reporton 2024 [employer] Director Cytology Report . Pathology Reports Accession: Collected Date/Time: Received Date/Time: Pathologist: [id number] 05/10/2024 12:53 EST 05/10/2024 18:00 EST [employer] Director Cytology Report SPECIMEN: Specimen Description: Liquid Prep w/ HPV Specimen: Cervical/Endocervical Screening or Diagnostic: Screening RELEVANT HISTORY: LMP: 04/10/24 [id number] SPECIMEN ADEQUACY: SATISFACTORY FOR EVALUATION Endocervical/Transformation al [...] and evaluated with the assistance of the [email or web address] ThinPrep Test Imaging System. Pathology Reports Accession: Collected Date/Time: Received Date/Time: Pathologist: [id number] 05/10/2024 12:53 EST 05/10/2024 18:00 EST Verified by Pathology report verified by [facility] Screened by: AAMIR Electronically signed by Christina GONZALEZ (ASCP) Sign-Out Date: 05/16/2024 11:25 Performing Lab: [facility], [address] [place] [address] Pathology Dept Disclaimer The Pap test is a screening test for cervical cancer. As evidenced by published data, it is subject to both inherent false negative and false positive results. Your patient's results should be interpreted in context with pertinent clinical history including gynecological examination. Normal [facility] MAIN HPVon 05-15-2024 HPV Interp Normal See [facility] HPVN [facility] MA[facility] Comment on above: Order Comment: Order placed by AP_HPV_ORDER rule from [id number] Result Comment: High Risk HPV Typing: NEGATIVE [...] and sufficient DNA to be detected. See [facility] HPVN Performed By: #### H PV #### [place] [address] HPV Source Cervix Normal [facility] MAIN Comment on above: Order Comment: Order placed by AP_HPV_ORDER rule from [id number] Performed By: #### H PV #### [place] [address] VAGINAL PATHOGEN DNA DIRECT PROBES[JUSTEN]on 05-14-2024 VAGINAL PATHOGEN DNA DIRECT PROBES[JUSTEN] Normal [facility] Comment on above: Result Comment: _VAG INAL PATHOGENS DNA DIRECT PROBES [CCL]_ SEE SEPARATE REPORT Performed By: #### 2 03298 #### [facility],[address] [place], [place] [id number] GC/CHLAM AMPLIFICATION [CCL] on 05-11-2024 SEND TO IC? NO Normal [facility] Comment on above: Performed By: #### 2 72103 #### [place] [id number] Chlamydia trachomatis RNA Not detected Normal Not detected [facility] Comment on above: Result Comment: This FDA-approved assay has been modified to accept rectal swabs self-collected in a healthcare setting. For self-collected rectal swabs, the test was developed and its performance characteristics determined by the [facility] [place] ([facility]). It has not been cleared or approved by the FDA. [facility] is regulated under CLIA as qualified to perform high-complexity testing. This test is used for clinical purposes. It should not be regarded as investigational or for research. SOURCE: [facility] [place] [address] Nickolas Rodriguez III, M.D. [id number] Performed By: #### 2 06308 #### [place] [id number] Neisseria gonorrhoeae RNA Not detected Normal Not detected [facility] Comment on above: Performed By: #### 2 40483 #### [place] [id number] VITAMIN B1, WHOLE BLOOD [CCL ]on 12-27-2023 Vitamin B1 (TDP), WholeBlood 174.8 nmol/L Normal 84.3-213.3 [facility] Comment on above: Result Comment: This assay measures the concentration of thiamine diphosphate (TDP), the primary active form of vitamin B1. Approximately 90 percent of vitamin B1 present in whole blood is TDP. Thiamine and thiamine monophosphate, which comprise the remaining 10 percent, are not measured. This test was developed and its performance characteristics determined by [facility] [place] ([facility]). It has not been cleared or approved by the FDA. -PLCT is regulated under CLIA as qualified to perform high-complexity testing. This test is used for clinical purposes. It should not be regarded as investigational or for research. [facility] [place] [address] Nickolas Rodriguez III, M.D. [id number] Performed By: #### 2 44878 #### [address] [address] VITAMIN B6 [CCL]on Vitamin B6 Plasma 50.1 nmol/L Normal 20.0-125.0 [facility] Comment on above: Result Comment: INTE RPRETIVE INFORMATION: Vitamin B6 (Pyridoxal 5-Phosphate) Pyridoxal 5'-phosphate measured in a specimen collected following an 8-hour or overnight fast accurately indicates vitamin B6 nutritional status. Non-fasting specimen concentration reflects recent vitamin intake. This test was developed and its performance characteristics determined by [facility]. It has not been cleared or approved by the US Food and Drug Administration. This test was performed in a CLIA certified laboratory and is intended for clinical purposes. Performed By: [facility] [address] [place] [address] Folder Machine: Dennis Robles MD, PhD CLIA Number: [id number] [place] [address] Nickolas Rodriguez III, M.D. [id number] Performed By: #### 2 32342 #### [address] [address] CBC + DIFFon 12-19-2023 ANISO 1+ Normal [facility] Comment on above: Performed By: #### 2 13725 #### [address] [address] Baso # 0.03 x10EE3/UL Normal 0.00 - 0.10 [facility] Comment on above: Performed By: #### 2 49020 #### [address] [address] Basophils/100 WBC (Bld) 0.5 % Normal 0.0 - 2.0 [facility] Comment on above: Performed By: #### 2 29027 #### [address] [address] Basophils/100 WBC (Bld) 1.0 % Normal 0.0 - 2.0 [facility] Comment on above: Performed By: #### 2 66694 #### [facility],[address] [place] [address] CBC + DIFF Normal [facility] Comment on above: Result Comment: CBC- COMPLETE BLOOD COUNT Performed By: #### 2 18242 #### [facility],[address] [place] [address] EO 2.0 % Normal 0.0 - 7.0 [facility] Comment on above: Performed By: #### 2 07768 #### [facility],[address] [place] [address] EO # 0.11 x10EE3/UL Normal 0.00 - 0.50 [facility] Comment on above: Performed By: #### 2 75560 #### [facility],[address] [place] [address] Eosinophils/100 WBC (Bld) 1.9 % Normal 0.0 - 7.0 [facility] Comment on above: Performed By: #### 2 67887 #### [facility],[address] [place] [address] Erythrocyte distribution width (RBC) [Ratio] 19.2 % High 12.0 - 15.6 [facility] Comment on above: Performed By: #### 2 93216 #### [facility],[address] [place] [address] Hematocrit (Bld) [Volume fraction] 27.8 % Low 34.0 - 46.0 [facility] Comment on above: Performed By: #### 2 50600 #### [facility],[address] [place] [address] Hemoglobin (Bld) [Mass/Vol] 8.4 g/dL Low 12.0 - 16.0 [facility] Comment on above: Performed By: #### 2 25416 #### [facility],[address] [place] [address] HYPOCHROM 1+ Normal [facility] Comment on above: Performed By: #### 2 46216 #### [facility],[address] [place] [address] Lymph # 1.87 x10EE3/UL Normal 0.80 - 2.80 [facility] Comment on above: Performed By: #### 2 57839 #### [facility],[address] [place] [address] Lymphocytes/100 WBC (Bld) 32.9 % Normal 20.0 - 45.0 [facility] Comment on above: Performed By: #### 2 32186 #### [facility],[address] [place] [address] Lymphocytes/100 WBC (Bld) 35 % Normal 20 - 45 [facility] Comment on above: Performed By: #### 2 56671 #### [facility],[address] [place] [address]697 MANUAL DIFF SEE BELOW Normal [facility] Comment on above: Performed By: #### 2 28138 #### [facility],[address] [place] [address]162 MCH (RBC) [Entitic mass] 19 pg Low 27 - 33 [facility] Comment on above: Performed By: #### 2 90492 #### [facility],[address] [place] [address] MCHC 30 X10 3 Low 32 - 36 [facility] Comment on above: Performed By: #### 2 19858 #### [facility],[address] [place] [address] MCV (RBC) [Entitic vol] 64 fL Low 80 - 99 [facility] Comment on above: Performed By: #### 2 78342 #### [facility],[address] [place] [address] MICROCYTES 1+ Normal [facility] Comment on above: Performed By: #### 2 26138 #### [facility],[address] [place] [address] [place] # 0.38 x10EE3/UL Normal 0.20 - 1.00 [facility] Comment on above: Performed By: #### 2 36537 #### [facility],[address] [place] [address] 15982 MONOS 4 % Normal 0 - 10 [facility] Comment on above: Performed By: #### 2 83935 #### [facility],[address] [place] [address] 13931 MONOS % 6.6 % Normal 0.0 - 10.0 [facility] Comment on above: Performed By: #### 2 32086 #### [facility],[address] [place] [address] Morphology Rodney (Bld) [Interp] SEE BELOW Normal [facility] Comment on above: Performed By: #### 2 68871 #### [facility],[address] [place] [address] Neut # 3.30 x10EE3/UL Normal 1.50 - 7.10 [facility] Comment on above: Performed By: #### 2 39807 #### [facility],[address] [place] [address] Neutrophils/100 WBC (Bld) 58.1 % Normal 46.0 - 76.0 [facility] Comment on above: Performed By: #### 2 41767 #### [facility],[address] [place] [address] PLATELET 439 x10EE3/UL Normal 150 - 450 [facility] Comment on above: Performed By: #### 2 14245 #### [facility],[address] [place] [address] Platelet mean volume (Bld) [Entitic vol] 8.3 fL Normal 6.6 - 10.5 [facility] Comment on above: Result Comment: AUTO MATED DIFFERENTIAL Performed By: #### 2 36520 #### [facility],[address] [place] [address] PLT EST NORMAL Normal [facility] Comment on above: Performed By: #### 2 29341 #### [facility],[address] [place] [address] RBC 4.38 x 10EE6/UL Normal 4.10 - 5.30 [facility] Comment on above: Performed By: #### 2 37601 #### [facility],[address] [place] [address] SEGS 58 % Normal 46 - 76 [facility] Comment on above: Performed By: #### 2 27601 #### [facility],[address] [place], [place] [address] WBC 5.7 x 10EE3/UL Normal 4.5 - 10.8 [facility] Comment on above: Performed By: #### 2 59325 #### [facility],[address] [place] [address] Other RARE GIANT PLATELET Normal [facility] Comment on above: Result Comment: FEW LARGE PLATELETS Performed By: #### 2 64274 #### [facility],[address] [place] [address] CMP with eGFRon 12-19-2023 AGE 33 years Normal [facility] Comment on above: Performed By: #### 2 15603 #### [facility],[address] [place] [address]195 Albumin [Mass/Vol] 3.3 g/dL Low 3.4 - 5.0 [facility] Comment on above: Performed By: #### 2 52713 #### [facility],[address] [place] [address]053 Albumin/Globulin [Mass ratio] 1.0 {ratio} Normal 0.9 - 1.6 [facility] Comment on above: Performed By: #### 2 88983 #### [facility],[address] [place] [address] 11799 ALK PHOS 64 U/L Normal 46 - 116 [facility] Comment on above: Performed By: #### 2 06904 #### [facility],[address] [place] [address] 12388 ALT [Catalytic activity/Vol] 13 U/L Low 16 - 63 [facility] Comment on above: Performed By: #### 2 46181 #### [facility],[address] [place] [address] Anion gap [Moles/Vol] 10 mmol/L Normal 10 - 20 [facility] Comment on above: Performed By: #### 2 32236 #### [facility],[address] [place] [address]507 AST [Catalytic activity/Vol] 13 U/L Normal 13 - 39 [facility] Comment on above: Performed By: #### 2 47526 #### [facility],[address] [place] [address] B/C RATIO 14 ratio Normal 0 - 30 [facility] Comment on above: Performed By: #### 2 97173 #### [facility],[address] [place] [address] Bilirubin [Mass/Vol] 0.5 mg/dL Normal 0.2 - 1.0 [facility] Comment on above: Performed By: #### 2 45774 #### [facility],[address] [place] [address] 32591 Calcium [Mass/Vol] 8.8 mg/dL Normal 8.5 - 10.1 [facility] Comment on above: Performed By: #### 2 57377 #### [facility],[address] [place] [address] Chloride [Moles/Vol] 103 mmol/L Normal 98 - 107 [facility] Comment on above: Performed By: #### 2 24100 #### [facility],[address] [place] [address] CMP with eGFR Normal [facility] Comment on above: Result Comment: COMP REHENSIVE METABOLIC PANEL Performed By: #### 2 32439 #### [facility],[address] [place] [address]708 CO2 [Moles/Vol] 29.0 mmol/L Normal 21.0 - 32.0 [facility] Comment on above: Performed By: #### 2 21002 #### [facility],[address] [place] [address] Creatinine [Mass/Vol] 0.58 mg/dL Normal 0.55 - 1.02 [facility] Comment on above: Performed By: #### 2 69090 #### [facility],[address] [place] [address] GFR/1.73 sq M.predicted among non-blacks MDRD (S/P/Bld) [Vol rate/Area] mL/min/{1.73_m2} Normal 60 - 999 [facility] Comment on above: Performed By: #### 2 56746 #### [facility],[address] [place] [address] 109[address] Result Comment: ACCO RDING TO THE NATIONAL KIDNEY DISEASE EDUCATION PROGRAM(NKDE), A NORMAL eGFR IS A VALUE GREATER THAN OR EQUAL TO 60 ML/MIN/1.73 SQ METERS. CHRONIC KIDNEY DISEASE: <60mL/MIN/1.73 SQ METERS KIDNEY FAILURE: <15mL/MIN/1.73 SQ METERS THIS TEST SHOULD ONLY BE USED FOR PATIENTS 18 YEARS OF AGE AND OLDER. Globulin (S) [Mass/Vol] 3.4 g/dL Normal 1.5 - 3.8 [facility] Comment on above: Performed By: #### 2 17472 #### [facility],[address] [place] [address] 27084 Glucose [Mass/Vol] 85 mg/dL Normal 74 - 106 [facility] Comment on above: Performed By: #### 2 24082 #### [facility],[address] [place] [address]458 Potassium [Moles/Vol] 4.4 mmol/L Normal 3.5 - 5.1 [facility] Comment on above: Performed By: #### 2 76150 #### [facility],[address] [place] [address] 68000 Protein [Mass/Vol] 6.7 g/dL Normal 6.4 - 8.2 [facility] Comment on above: Performed By: #### 2 94507 #### [facility],[address] [place] [address] Sodium [Moles/Vol] 138 mmol/L Normal 136 - 145 [facility] Comment on above: Performed By: #### 2 17921 #### [facility],[address] [place] [address] 43536 Urea nitrogen [Mass/Vol] 8 mg/dL Normal 7 - 18 [facility] Comment on above: Performed By: #### 2 36599 #### [facility],[address] [place] [address] 57008 FERRITINon 12-19-2023 Ferritin [Mass/Vol] 6 ng/mL Low 8 - 388 [facility] Comment on above: Performed By: #### 2 88809 #### [facility],[address] [place] [address] 287[address] HIP BILAT 2+ VIEWS W/AP PELV Walker 12-19-2023 HIP BILAT 2+ VIEWS W/AP PELVIS [address] [address] Patient: ZACK JAMESON Phone#: : [phone] Age: 33 Gender: F Pt. Type: Out Account: [id number] Location: [facility] Ordering: NAYE RHODES Exam Date: 12/19/2023/11:27 Family Phys: Charge Code: [id number] Physician: [place] Order #: [id number] Dose#: PROCEDURE: X-RAY HIP BILAT MIN 2 [...] Argueta MD on 12/19/2023 at 12:32 Normal [facility] IRON AND TIBCon 12-19-2023 %SATURATION 3 % Normal [facility] Comment on above: Performed By: #### 2 46867 #### [address] [address] Iron [Mass/Vol] 13 ug/dL Low 50 - 170 [facility] Comment on above: Performed By: #### 2 97924 #### [address] [address] TIBC 427 ug/dl Normal 250 - 450 [facility] Comment on above: Performed By: #### 2 35128 #### [address] [address] UIBC 414 ug/dL High 155 - 355 [facility] Comment on above: Performed By: #### 2 75140 #### [facility],[address] [place] [address] T4-FREE (FREE THYROXINE)on 0 12-19-2023 Free T4 [Mass/Vol] 0.69 ng/dL Low 0.76 - 1.46 [facility] Comment on above: Result Comment: P otential of falsely elevated results when biotin concentrations are > 10 ng/mL. Performed By: #### 2 77487 #### [address] [address] TSHon 12-19-2023 TSH Qn 0.83 m[IU]/L Normal 0.35 - 3.74 [facility] Comment on above: Performed By: #### 2 12071 #### [facility],[address] [place] [address] VITAMIN B-12on 12-19-2023 Cobalamin (Vitamin B12) [Mass/Vol] 618 pg/mL Normal 193 - 986 [facility] Comment on above: Performed By: #### 2 46935 #### [facility],[address] [place] [address] VITAMIN D, 25 HYDROXYon VitD 43.50 ng/mL Normal 30.00 - 100 [facility] Comment on above: Result Comment: 25-O [...] D2 Not Established Performed By: #### 2 31402 #### [facility],[address] [place] [address] COMPLETE BLOOD COUNTon 09-19 Erythrocyte distribution width (RBC) [Ratio] 23.1 % High 11.5-15.0 [facility] Comment on above: Performed By: #### C BC, FEPR, THYR #### [facility] ([id number]) [address], [address] [place] [address] Hematocrit (Bld) [Volume fraction] 27.4 % Low 35-47 [facility] Comment on above: Performed By: #### C BC, FEPR, THYR #### [facility] ([id number]) [address] [place] [address] Hemoglobin (Bld) [Mass/Vol] 8.5 g/dL Low 11.7-15.5 [facility] Comment on above: Performed By: #### C JESS FEPR, THYR #### [facility] ([id number]) [address], [address] [place] [address] MCH (RBC) [Entitic mass] 18.9 pg Low 27-34 [facility] Comment on above: Performed By: #### C JESS FEPR, THYR #### [facility] ([id number]) [address], [address] [place] [address] MCHC (RBC) [Mass/Vol] 31.0 g/dL Low 32-36 [facility] Comment on above: Performed By: #### C JESS FEPR, THYR #### [facility] ([id number]) [address], [address] [place] [address] MCV (RBC) [Entitic vol] 61 fL Low 80-100 [facility] Comment on above: Performed By: #### C JESS FEPR, THYR #### [facility] ([id number]) [address], [address] [place] [address] Platelet mean volume (Bld) [Entitic vol] 8.6 fL Normal 7-12 [facility] Comment on above: Performed By: #### C JESS FEPR, THYR #### [facility] ([id number]) [address], [address] [place] [address] Platelets (Bld) [#/Vol] 334 10*3/uL Normal 150-450 [facility] Comment on above: Performed By: #### C BC FEPR, THYR #### [facility] ([id number]) [address], [address] [place] [address] RBC COUNT 4.49 X10E12/L Normal 3.80-5.20 [facility] Comment on above: Performed By: #### C BC, FEPR, THYR #### [facility] ([id number]) [address], [address] [place] [address] WBC (Bld) [#/Vol] 7.0 10*3/uL Normal 4.0-11.0 [facility] Comment on above: Performed By: #### C BC, FEPR, THYR #### [facility] ([id number]) [address], [address] [place] [address] IRON PROFILEon 09-20-2023 Iron [Mass/Vol] 19 ug/dL Low 50-170 [facility] Comment on above: Performed By: #### C BC, FEPR, THYR #### [facility] ([id number]) [address], [address] [place] [address] IRON BINDING 501 ug/dL High 250-425 [facility] Comment on above: Performed By: #### C BC, FEPR, THYR #### [facility] ([id number]) [address] [place] [address] IRON SATURATION 4 % SATURATION Low 15-50 [facility] Comment on above: Performed By: #### C BC, FEPR, THYR #### [facility] ([id number]) [address], [address] [place] [address] THYROID PROFILEon 09-20-2023 Free T4 [Mass/Vol] 0.89 ng/dL Normal 0.61-1.60 [facility] Comment on above: Performed By: #### C BC, FEPR, THYR #### [facility] ([id number]) [address] [facility] [address] [place] [address] TSH 2.07 uIU/mL Normal 0.49-4.67 [facility] Comment on above: Performed By: #### C BC, FEPR, THYR #### [facility] ([id number]) [address], [address] [place] [address] Hemoglobin A1Con 08-23-2023 Glucose [Mass/Vol] 103 mg/dL Normal [facility] Comment on above: Result Comment: The ADA and AACC recommend providing the estimated average glucose result to permit better patient understanding of their HBA1c result. Performed By: #### L IPR #### [facility] [address] [place] [address] Public Relations Professional: Markie Allen DO #### GLYHGB #### [address] [address] Public Relations Professional: Ladarius Andres MD HbA1c (Bld) [Mass fraction] 5.2 % Normal 4.0-6.0 [facility] Comment on above: Performed By: #### L IPR #### [facility] [address] [place] [address] Public Relations Professional: Markie Allen DO #### GLYHGB #### [address] [address] Public Relations Professional: Ladarius Andres MD Lipid Profileon Cholesterol [Mass/Vol] 104 mg/dL Normal <200 [facility] Comment on above: Result Comment: Cholesterol Guidelines: <200 Desirable 200-240 Borderline >240 Undesirable Performed By: #### L IPR #### [facility] [address] [place] [address] Public Relations Professional: Markie Allen DO #### GLYHGB #### [address] [address] Public Relations Professional: Ladarius Andres MD Cholesterol in HDL [Mass/Vol] 44 mg/dL Normal >40 [facility] Comment on above: Result Comment: HDL Guidelines: <40 Undesirable 40-59 Borderline >59 Desirable Performed By: #### L IPR #### [facility] [address] [place] [address] Public Relations Professional: Markie Allen DO #### GLYHGB #### [address] [address] Public Relations Professional: Ladarius Andres MD Cholesterol in LDL [Mass/Vol] 50 mg/dL Normal 0-130 [facility] Comment on above: Result Comment: LDL Guidelines: <100 Desirable 100-129 Near to/above Desirable 130-159 Borderline >159 Undesirable Direct (measured) LDL and calculated LDL are not interchangeable tests. Performed By: #### L IPR #### [facility] [address] [place] [address] Public Relations Professional: Markie Allen DO #### GLYHGB #### [address] [address] Public Relations Professional: Ladarius Andres MD Cholesterol.total/Chol esterol in HDL [Mass ratio] 2.4 {ratio} Normal <5 [facility] Comment on above: Performed By: #### L IPR #### [facility] [address] [place] [address] Public Relations Professional: Markie Allen DO #### GLYHGB #### [address] [address] Public Relations Professional: Ladarius Andres MD Triglyceride [Mass/Vol] 50 mg/dL Normal <150 [facility] Comment on above: Result Comment: Triglyceride Guidelines: <150 Desirable 150-199 Borderline 200-499 High >499 Very high Based on AHA Guidelines for fasting triglyceride, January 2012. Performed By: #### L IPR #### [facility] [address] [place] [address] Public Relations Professional: Markie Allen DO #### GLYHGB #### [address] [address] Public Relations Professional: Ladarius Andres MD Basic Metabolic Profon 08-20 Anion gap [Moles/Vol] 11 mmol/L Normal 9-17 [facility] Comment on above: Performed By: #### H CG, LIVP, CDP, EDTOX, BMP #### [facility] [address] [place] [address] Public Relations Professional: Ladarius Andres MD BUN/CRE Ratio 13 Normal 9-20 [facility] Comment on above: Performed By: #### H CG, LIVP, CDP, EDTOX, BMP #### [facility] [address] [place] [address] Public Relations Professional: Ladarius Andres MD Calcium [Mass/Vol] 8.7 mg/dL Normal 8.6-10.4 [facility] Comment on above: Performed By: #### H CG, LIVP, CDP, EDTOX, BMP #### [facility] [address] [place] [address] Public Relations Professional: Ladarius Andres MD Chloride [Moles/Vol] 107 mmol/L Normal 98-107 [facility] Comment on above: Performed By: #### H CG, LIVP, CDP, EDTOX, BMP #### [facility] [address] [place] [address] Public Relations Professional: Ladarius Andres MD CO2 [Moles/Vol] 23 mmol/L Normal 20-31 [facility] Comment on above: Performed By: #### H CG, LIVP, CDP, EDTOX, BMP #### [facility] [address] [place] [address] Public Relations Professional: Ladarius Andres MD Creatinine [Mass/Vol] 0.6 mg/dL Normal 0.5-0.9 [facility] Comment on above: Performed By: #### H CG, LIVP, CDP, EDTOX, BMP #### [facility] [address] [place] [address] Public Relations Professional: Ladarius Andres MD GFR/1.73 sq M.predicted among non-blacks MDRD (S/P/Bld) [Vol rate/Area] mL/min/{1.73_m2} Normal >60 [facility] Comment on above: Result Comment: These [...] H CG, LIVP, CDP, EDTOX, BMP #### [facility] [address] [place] [address] Public Relations Professional: Ladarius Andres MD Glucose [Mass/Vol] 98 mg/dL Normal 70-99 [facility] Comment on above: Performed By: #### H CG, LIVP, CDP, EDTOX, BMP #### [facility] [address] [place] [address] Public Relations Professional: Ladarius Andres MD Potassium [Moles/Vol] 3.7 mmol/L Normal 3.7-5.3 [facility] Comment on above: Performed By: #### H CG, LIVP, CDP, EDTOX, BMP #### [facility] [address] [place] [address] Public Relations Professional: Ladarius Andres MD Sodium [Moles/Vol] 141 mmol/L Normal 135-144 [facility] Comment on above: Performed By: #### H CG, LIVP, CDP, EDTOX, BMP #### [facility] [address] [place] [address] Public Relations Professional: Ladarius Andres MD Urea nitrogen [Mass/Vol] 8 mg/dL Normal 6-20 [facility] Comment on above: Performed By: #### H CG, LIVP, CDP, EDTOX, BMP #### [facility] [address] [place] [address] Public Relations Professional: Ladarius Andres MD CBC with Diffon 08-21-2023 Abs. Basophil 0.07 k/uL Normal 0.00-0.20 [facility] Comment on above: Performed By: #### H CG, LIVP, CDP, EDTOX, BMP #### [facility] [address] [place] [address] Public Relations Professional: Ladarius Andres MD Abs.Imm.Granulocyte <0.03 Normal 0.00-0.30 [facility] Comment on above: Performed By: #### H CG, LIVP, CDP, EDTOX, BMP #### [facility] [address] [place] [address] Public Relations Professional: Ladarius Andres MD Abs.Neutrophil (Seg) 3.02 k/uL Normal 1.50-8.10 [facility] Comment on above: Performed By: #### H CG, LIVP, CDP, EDTOX, BMP #### [facility] [address] [place] [address] Public Relations Professional: Ladarius Andres MD Basophils/100 WBC (Bld) 1 % Normal 0-2 [facility] Comment on above: Performed By: #### H CG, LIVP, CDP, EDTOX, BMP #### [facility] [address] [place] [address] Public Relations Professional: Ladarius Andres MD Eosinophils (Bld) [#/Vol] 0.16 10*3/uL Normal 0.00-0.44 [facility] Comment on above: Performed By: #### H CG, LIVP, CDP, EDTOX, BMP #### [facility] [address] [place] [address] Public Relations Professional: Ladarius Andres MD Eosinophils/100 WBC (Bld) 3 % Normal 1-4 [facility] Comment on above: Performed By: #### H CG, LIVP, CDP, EDTOX, BMP #### [facility] [address] [place] [address] Public Relations Professional: Ladarius Andres MD Erythrocyte distribution width (RBC) [Ratio] 20.1 % High 11.8-14.4 [facility] Comment on above: Performed By: #### H CG, LIVP, CDP, EDTOX, BMP #### [facility] [address] [place] [address] Public Relations Professional: Ladarius Andres MD Hematocrit (Bld) [Volume fraction] 25.8 % Low 36.3-47.1 [facility] Comment on above: Performed By: #### H CG, LIVP, CDP, EDTOX, BMP #### [facility] [address] [place] [address] Public Relations Professional: Ladarius Andres MD Hemoglobin (Bld) [Mass/Vol] 6.9 g/dL Critically low 11.9-15.1 [facility] Comment on above: Performed By: #### H CG, LIVP, CDP, EDTOX, BMP #### [facility] [address] [place] [address] Public Relations Professional: Ladarius Andres MD Immature granulocytes/100 WBC (Bld) 0 % Normal 0 [facility] Comment on above: Performed By: #### H CG, LIVP, CDP, EDTOX, BMP #### [facility] [address] [place] [address] Public Relations Professional: Ladarius Andres MD Lymphocytes (Bld) [#/Vol] 1.44 10*3/uL Normal 1.10-3.70 [facility] Comment on above: Performed By: #### H CG, LIVP, CDP, EDTOX, BMP #### [facility] [address] [facility] [place] [address] Public Relations Professional: Ladarius Andres MD Lymphocytes/100 WBC (Bld) 28 % Normal 24-43 [facility] Comment on above: Performed By: #### H CG, LIVP, CDP, EDTOX, BMP #### [facility] [address] [place] [address] Public Relations Professional: Ladarius Andres MD MCH (RBC) [Entitic mass] 17.1 pg Low 25.2-33.5 [facility] Comment on above: Performed By: #### H CG, LIVP, CDP, EDTOX, BMP #### [facility] [address] [place] [address] Public Relations Professional: Ladarius Andres MD MCHC (RBC) [Mass/Vol] 26.7 g/dL Normal 25.2-33.5 [facility] Comment on above: Performed By: #### H CG, LIVP, CDP, EDTOX, BMP #### [facility] [address] [place] [address] Public Relations Professional: Ladarius Andres MD MCV (RBC) [Entitic vol] 63.9 fL Low 82.6-102.9 [facility] Comment on above: Performed By: #### H CG, LIVP, CDP, EDTOX, BMP #### [facility] [address] [place] [address] Public Relations Professional: Ladarius Andres MD Monocytes (Bld) [#/Vol] 0.45 10*3/uL Normal 0.10-1.20 [facility] Comment on above: Performed By: #### H CG, LIVP, CDP, EDTOX, BMP #### [facility] [address] [place] [address] Public Relations Professional: Ladarius Andres MD Monocytes/100 WBC (Bld) 9 % Normal 3-12 [facility] Comment on above: Performed By: #### H CG, LIVP, CDP, EDTOX, BMP #### [facility] [address] [place] [address] Public Relations Professional: Ladarius Andres MD Neutrophil (Seg) 59 % Normal 36-65 [facility] Comment on above: Performed By: #### H CG, LIVP, CDP, EDTOX, BMP #### [facility] [address] [place] [address] Public Relations Professional: Ladarius Andres MD NRBC Automated 0.0 per 100 WBC Normal 0.0 [facility] Comment on above: Performed By: #### H CG, LIVP, CDP, EDTOX, BMP #### [facility] [address] [place] [address] Public Relations Professional: Ladarius Andres MD Platelet mean volume (Bld) [Entitic vol] 9.5 fL Normal 8.1-13.5 [facility] Comment on above: Performed By: #### H CG, LIVP, CDP, EDTOX, BMP #### [facility] [address] [place] [address] Public Relations Professional: Ladarius Andres MD Platelets (Bld) [#/Vol] 381 10*3/uL Normal 138-453 [facility] Comment on above: Performed By: #### H CG, LIVP, CDP, EDTOX, BMP #### [facility] [address] [place] [address] Public Relations Professional: Ladarius Andres MD RBC (Bld) [#/Vol] 4.04 10*6/uL Normal 3.95-5.11 [facility] Comment on above: Performed By: #### H CG, LIVP, CDP, EDTOX, BMP #### [facility] [address] [place] [address] Public Relations Professional: Ladarius Andres MD WBC (Bld) [#/Vol] 5.2 10*3/uL Normal 3.5-11.3 [facility] Comment on above: Performed By: #### H CG, LIVP, CDP, EDTOX, BMP #### [facility] [address] [place] [address] Public Relations Professional: Ladarius Andres MD Drug Scr, Abuse, Uron 2023 Amphetamine(s),Ur Positive Abnormal NEG [facility] Comment on above: Result Comment: (Positive cutoff 1000 ng/mL) Performed By: #### U AX, UMICAO, STACY #### [facility] [address] [place] [address] Public Relations Professional: Ladarius Andres MD Barbiturate(s),Ur Negative Normal NEG [facility] Comment on above: Result Comment: (Positive cutoff 200 ng/mL) Performed By: #### U AX, UMICAO, STACY #### [facility] [address] [place] [address] Public Relations Professional: Ladarius Andres MD Benzodiazepine(s) Negative Normal NEG [facility] Comment on above: Result Comment: (Positive cutoff 200 ng/mL) Performed By: #### U AX, UMICAO, STACY #### [facility] [address] [place] [address] Public Relations Professional: Ladarius Andres MD Cannabinoid(s),Ur Positive Abnormal NEG [facility] Comment on above: Result Comment: (Positive cutoff 50 ng/mL) Performed By: #### U AX, UMICAO, STACY #### [facility] [address] [place] [address] Public Relations Professional: Ladarius Andres MD Cocaine Metabolite Negative Normal NEG [facility] Comment on above: Result Comment: (Positive cutoff 300 ng/mL) Performed By: #### U AX, UMICAO, STACY #### [facility] [address] [place] [address] Public Relations Professional: Ladarius Andres MD Methadone Ql (U) Negative Normal NEG [facility] Comment on above: Result Comment: (Positive cutoff 300 ng/mL) Performed By: #### U AXFELICIAO, STACY #### [facility] [address] [place] [address] Public Relations Professional: Ladarius Andres MD Opiate(s), Ur Negative Normal NEG [facility] Comment on above: Result Comment: (Positive cutoff 300 ng/mL) Performed By: #### U AXFELICIAO, STACY #### [facility] [address] [place] [address] Public Relations Professional: Ladarius Andres MD Oxycodone, Urine Negative Normal NEG [facility] Comment on above: Result Comment: (Positive cutoff 100 ng/mL) Performed By: #### U AXFELICIAO, STACY #### [facility] [address] [place] [address] Public Relations Professional: Ladarius Andres MD Phencyclidine, Ur Negative Normal NEG [facility] Comment on above: Result Comment: (Positive cutoff 25 ng/mL) Performed By: #### U AX, UMICAO, STACY #### [facility] [address] [place] [address] Public Relations Professional: Ladarius Andres MD Fentanyl, Urine Negative Normal NEG [facility] Comment on above: Result Comment: (Positive cutoff 5 ng/ml) Performed By: #### U AX, UMICAO, STACY #### [facility] [address] [place] [address] Public Relations Professional: Ladarius Andres MD Interpretive Info Assay provides medic al screening only. The absence of expected drug(s) and/or Normal [facility] Comment on above: Result Comment: meta bolite(s) may indicate diluted or adulterated urine, limitations of testing or timing of collection. Testing for legal purposes should be confirmed by another method. To request confirmation of test result, please call the lab within 7 days of sample submission. Performed By: #### U PILLO MURRY DAU #### [facility] [address] [place] [address] Public Relations Professional: Ladarius Andres MD HCG Screen, Bloodon 08-21-19 24 HCG Screen, Blood Negative Normal NEG [facility] Comment on above: Result Comment: Spec imens with hCG levels near the threshold of the test (25 mIU/mL) may give a negative or indeterminate result. In such cases, another test should be performed with a new specimen in 48-72 hours. If early is suspected clinically in this setting, correlation with quantitative serum b-hCG level is suggested. Performed By: #### H CG LIVP, CDP, EDTOX, BMP #### [facility] [address] [place] [address] Public Relations Professional: Ladarius Andres MD Hgb/Hcton 08-21-2023 Hematocrit (Bld) [Volume fraction] 26.9 % Low 36.3-47.1 [facility] Comment on above: Performed By: #### H H #### [facility] [address] [place] [address] Public Relations Professional: Ladarius Andres MD Hemoglobin (Bld) [Mass/Vol] 7.5 g/dL Low 11.9-15.1 [facility] Comment on above: Performed By: #### H H #### [facility] [address] [place] [address] Public Relations Professional: Ladarius Andres MD Liver Profileon 08-21-2023 ALT [Catalytic activity/Vol] 8 U/L Normal 5-33 [facility] Comment on above: Performed By: #### H CG, LIVP, CDP, EDTOX, BMP #### [facility] [address] [place] [address] Public Relations Professional: Ladarius Andres MD Albumin [Mass/Vol] 3.9 g/dL Normal 3.5-5.2 [facility] Comment on above: Performed By: #### H CG, LIVP, CDP, EDTOX, BMP #### [facility] [address] [facility] [place] [address] Public Relations Professional: Ladarius Andres MD Albumin/Glob Ratio 1.4 Normal 1.0-2.5 [facility] Comment on above: Performed By: #### H CG, LIVP, CDP, EDTOX, BMP #### [facility] [address] [place] [address] Public Relations Professional: Ladarius Andres MD Alkaline Phos 58 U/L Normal 35-104 [facility] Comment on above: Performed By: #### H CG, LIVP, CDP, EDTOX, BMP #### [facility] [address] [place] [address], [place] [address] Public Relations Professional: Ladarius Andres MD AST [Catalytic activity/Vol] 14 U/L Normal <32 [facility] Comment on above: Performed By: #### H CG, LIVP, CDP, EDTOX, BMP #### [facility] [address] [place] [address], [place] [address] Public Relations Professional: Ladarius Andres MD Bilirubin [Mass/Vol] 0.3 mg/dL Normal 0.3-1.2 [facility] Comment on above: Performed By: #### H CG, LIVP, CDP, EDTOX, BMP #### [facility] [address] [place] [address], [place] [address] Public Relations Professional: Ladarius Andres MD Bilirubin, Indirect 0.2 mg/dL Normal 0.0-1.0 [facility] Comment on above: Performed By: #### H CG, LIVP, CDP, EDTOX, BMP #### [facility] [address] [place] [address] Public Relations Professional: Ladarius Andres MD Bilirubin.indirect [Mass/Vol] 0.1 mg/dL Normal <0.3 [facility] Comment on above: Performed By: #### H CG, LIVP, CDP, EDTOX, BMP #### [facility] [address] [place] [address] Public Relations Professional: Ladarius Andres MD Globulin (S) [Mass/Vol] 2.8 g/dL Normal 1.5-3.8 [facility] Comment on above: Performed By: #### H CG, LIVP, CDP, EDTOX, BMP #### [facility] [address] [place] [address] Public Relations Professional: Ladarius Andres MD Protein [Mass/Vol] 6.7 g/dL Normal 6.4-8.3 [facility] Comment on above: Performed By: #### H CG, LIVP, CDP, EDTOX, BMP #### [facility] [address] [place] [address] Public Relations Professional: Ladarius Andres MD Tox Scr, Bld, EDon 4 Acetaminophen [Mass/Vol] ug/mL Low 10-30 [facility] Comment on above: Performed By: #### H CG, LIVP, CDP, EDTOX, BMP #### [facility] [address] [place] [address] Public Relations Professional: Ladarius Andres MD Ethanol [Mass/Vol] mg/dL Normal <10 [facility] Comment on above: Performed By: #### H CG, LIVP, CDP, EDTOX, BMP #### [facility] [address] [place] [address] Public Relations Professional: aLdarius Andres MD Salicylate <1.0 Low 3-10 [facility] Comment on above: Performed By: #### H CG, LIVP, CDP, EDTOX, BMP #### [facility] [address] [place] [address] Public Relations Professional: Ladarius Andres MD Type + Screenon 0 Type + Screen Sample Expiration 08/24/2023,2359 Arm Band Number [id number] ABO/Rh(D) O NEGATIVE Antibody Screen NEGATIVE Unit Number [id number] Blood Component Type Leukocyte Reduced Red Cell Unit Division 00 Status of Unit TRANSFUSED Transfusion Status OK TO TRANSFUSE Crossmatch Result COMPATIBLE Normal [facility] Comment on above: Performed By: #### T YS #### [facility] [address] [place] [address] Public Relations Professional: Ladarius Andres MD UA w/Reflex Cultureon 2023 Bilirubin, SemiQt,Ur Negative Abnormal NEG [facility] Comment on above: Performed By: #### U AX, UMICAO, STACY #### [facility] [address] [place] [address] Public Relations Professional: Ladarius Andres MD Blood, Urine 2+ Abnormal NEG [facility] Comment on above: Performed By: #### U AX, UMICAO, STACY #### [facility] [address] [place] [address] Public Relations Professional: Ladarius Andres MD Clarity (U) SLIGHTLY CLOUDY Abnormal CLEAR [facility] Comment on above: Performed By: #### U AX, UMICAO, STACY #### [facility] [address] [place] [address] Public Relations Professional: Ladarius Andres MD Color (U) Yellow Normal YEL [facility] Comment on above: Performed By: #### U AX, UMICAO, STACY #### [facility] [address] [place] [address] Public Relations Professional: Ladarius Andres MD Glucose Ql (U) Negative Normal NEG [facility] Comment on above: Performed By: #### U AX, UMICAO, STACY #### [facility] [address] [place] [address] Public Relations Professional: Ladarius Andres MD Ketones Ql (U) TRACE Abnormal NEG [facility] Comment on above: Performed By: #### U AXPILLO STACY #### [facility] [address] [place] [address] Public Relations Professional: Ladarius Andres MD Leukocyte esterase Test strip Ql (U) Negative Normal NEG [facility] Comment on above: Performed By: #### U AXPILLO STACY #### [facility] [address] [place] [address] Public Relations Professional: Ladarius Andres MD Nitrite,Ur Negative Normal NEG [facility] Comment on above: Performed By: #### U PILLO MURRY, STACY #### [facility] [address] [place] [address] Public Relations Professional: Ladarius Andres MD PH,Ur 6.0 Normal 5.0-6.0 [facility] Comment on above: Performed By: #### U PILLO MURRY STACY #### [facility] [address] [place] [address] Public Relations Professional: Ladarius Andres MD Protein Ql (U) Negative Normal [facility] Comment on above: Performed By: #### U PILLO MURRY STACY #### [facility] [address] [place] [address] Public Relations Professional: Ladarius Andres MD Spec. Marrero,Ur 1.026 High 1.010-1.02 5 [facility] Comment on above: Performed By: #### U PILLO MURRY STACY #### [facility] [address] [place] [address] Public Relations Professional: Ladarius Andres MD Urobilinogen,Ur 4 mg/dL Normal 0.0-1.0 [facility] Comment on above: Performed By: #### PILLO DUMONT DAU #### [facility] [address] [place] [address], [place] [address] Public Relations Professional: Ladarius Andres MD Urinalysis,Microon 4 Bacteria FEW Abnormal [facility] Comment on above: Performed By: #### PILLO DUMONT DAU #### [facility] [address] [place] [address], [place] [address] Public Relations Professional: Ladarius Andres MD Epithelial cells LM Ql (Urine sed) 0 TO 2 Normal 0-5 [facility] Comment on above: Performed By: #### PILLO DUMONT DAU #### [facility] [address] [place] [phone] Public Relations Professional: Ladarius Andres MD Mucus Strands 3+ Abnormal [facility] Comment on above: Performed By: #### PILLO DUMONT DAU #### [facility] [address] [place] [address], [place] [address] Public Relations Professional: Ladarius Andres MD Other Observations Utilizing a urinalys is as the only screening method to exclude a potential [facility] Comment on above: Result Comment: urop athogen can be unreliable in many patient populations. Rapid screening tests are less sensitive than culture and if UTI is a clinical possibility, culture should be considered despite a negative urinalysis. Performed By: #### PILLO DUMONT DAU #### [facility] [address] [place] [address], [place] [address] Public Relations Professional: Ladarius Andres MD Urine RBC's 20 TO 50 Normal 0-4 [facility] Comment on above: Performed By: #### PILLO DUMONT DAU #### [facility] [address] [place] [address], [place] [address] Public Relations Professional: Ladarius Andres MD Urine WBC's 0 TO 2 Normal 0-4 [facility] Comment on above: Performed By: #### U JEANMARIE, STACY FERRO #### [facility] [address] [phone] Public Relations Professional: Ladarius Andres MD DRUG SCREEN MED COMPLIANCE I on 05-18-2023 DRUG SCREEN MED COMPLIANCE I SPECIMEN SENT TO REFERENCE LAB FOR TESTING Normal [facility] DRUG SCREEN MED COMPLIANCE I SPECIMEN SENT TO REFERENCE LAB FOR TESTING [facility] COVID-19/INFLUENZA A,B MOLEC ULARon 04-22-2023 SARS-CoV-2 (COVID-19) Ab IA Ql SARS-COV-2 (RAE): Detected INFLUENZA A (RAE): Not Detected INFLUENZA B (RAE): Not Detected Normal Not Detected [facility] Comment on above: Order Comment: This test [...] at the following links: For Healthcare Providers: https://www.fda.gov/media/396609/download For Patients: https://www.fda.gov/media/385765/download Performed By: #### L [id number] #### [facility] [address] [address] Cheryl Chapman M.D. [id number] Cholesterol [Mass/volume] in Serum or PlasmaOrdered By: Mirza Duff on 01-14-2023 Cholesterol [Mass/Vol] 142 mg/dL 140-200 [facility] Comment on above: Chol less than 200 m g/dl low riskChol 201-239 mg/dl borderline riskChol 240 mg/dl and greater high risk Cholesterol in LDL Calc [Mas s/Vol]Ordered By: Mirza Duff on 01-14-2023 Cholesterol in LDL [Mass/Vol] 80 mg/dL 0-100 [facility] Comment on above: LDL ATP III CLASSIFI CATIONLDL less than 100 mg/dL OptimalLDL 100-129 mg/dL Near or above optimalLDL 130-159 mg/dL Borderline highLDL 160-189 mg/dL HighLDL greater than 189 mg/dL Very high Cholesterol in VLDL Calc [Ma ss/Vol]Ordered By: Mirza Duff on 01-14-2023 Cholesterol in VLDL [Mass/Vol] 11 mg/dL [facility] ECG 12 lead ECGon 01-14-2023 ECG 12 lead ECG [facility] [address] [place] [address] [place] [address] Electrocardiograph Report Signed Patient: Zack Jameson MR#: [id number] [birth year] : 1990 Acct:[id number] Age/Sex: 32 / F ADM Date: 01/13/23 Loc: Room: [address] [place] [address] Type: ADM IN Attending Dr: Mirza Duff [...] By: MUS Signed By Radha Solomon MD 0955 Normal [facility] Lipid Panelon 01-14-2023 Cholesterol [Mass/Vol] 142 mg/dL Normal 140-200 [facility] Comment on above: Result Comment: Chol less than 200 mg/dl low risk Chol 201-239 mg/dl borderline risk Chol 240 mg/dl and greater high risk Performed By: #### T SH3 wRFLX, LIPID, [id number] #### [facility] [address] Cholesterol in HDL [Mass/Vol] 50 mg/dL Normal 23-92 [facility] Comment on above: Result Comment: HDL CHOL ATP-III CLASSIFICATION Cardiovascular Risk HDL > or equal to 60 mg/dL LOW HDL < 40 mg/dL HIGH Performed By: #### T SH3 wRFLX, LIPID, [id number] #### [facility] [address] Cholesterol.total/Chol esterol in HDL [Mass ratio] 2.8 {ratio} Normal <5.0 [facility] Comment on above: Performed By: #### T SH3 wRFLX, LIPID, [id number] #### [facility] [address] LDL Cholesterol,Calculated 80 mg/dL Normal 0-100 [facility] Comment on above: Result Comment: LDL ATP III CLASSIFICATION LDL less than 100 mg/dL Optimal LDL 100-129 mg/dL Near or above optimal LDL 130-159 mg/dL Borderline high LDL 160-189 mg/dL High LDL greater than 189 mg/dL Very high Performed By: #### T SH3 wRFLX, LIPID, [id number] #### [address] Triglyceride w/Reflex 59 mg/dL Normal 0-149 [facility] Comment on above: Result Comment: TRIG ATP III CLASSIFICATION TRIG less than 150 mg/dL Normal TRIG 150-199 mg/dL Borderline high TRIG 200-500 mg/dL High TRIG greater than 500 mg/dL Very high Standard traceable to the Center for Disease Conrtrol and Prevention (CDC) test method. Performed By: #### T SH3 wRFLX, LIPID, [id number] #### [facility] [address] VLDL CHOLESTEROL 11 mg/dL Normal [facility] Comment on above: Performed By: #### T SH3 wRFLX, LIPID, [id number] #### [facility] [address] Serum or plasma high density lipoprotein (HDL) cholesterol measurementOrdered By: Mirza Duff on 01-14-2023 Cholesterol in HDL [Mass/Vol] 50 mg/dL 23-92 [facility] Comment on above: HDL CHOL ATP-III CLA SSIFICATION Cardiovascular RiskHDL > or equal to 60 mg/dL LOWHDL < 40 mg/dL HIGH Serum or plasma total choles terol/high density lipoprotein (HDL) cholesterol mass ratOrdered By: Mirza Duff on 01-14-2023 Cholesterol.total/Chol esterol in HDL [Mass ratio] 2.8 {ratio} <5.0 [facility] Thyroid Stim Hormone w/Rflxo n 01-14-2023 Thyroid Stim Hormone w/Rflx 0.65 u[iU]/mL Normal 0.45-5.33 [facility] Comment on above: Performed By: #### T SH3 wRFLX, LIPID, [id number] #### [address] Thyrotropin [Units/volume] i n Serum or PlasmaOrdered By: Mirza Duff on 01-14-2023 TSH Qn 0.65 m[IU]/L 0.45-5.33 [facility] Triglyceride [Mass/volume] i n Serum or PlasmaOrdered By: Mirza Duff on 01-14-2023 Triglyceride [Mass/Vol] 59 mg/dL 0-149 [facility] Comment on above: TRIG ATP III CLASSIF ICATIONTRIG less than 150 mg/dL NormalTRIG 150-199 mg/dL Borderline highTRIG 200-500 mg/dL High TRIG greater than 500 mg/dL Very highStandard traceable to the Center for Disease Conrtrol and Prevention (CDC) test method. Vitamin D 25 Hydroxy Totalon 01-14-2023 Vitamin D 25 Hydroxy Total 30.5 ng/mL Normal 30-100 [facility] Comment on above: Result Comment: EDNA MIN D STATUS 25(OH)VITAMIN D RANGE (ng/mL) Deficient <20 Insufficient 20 to <30 Sufficient 30 to 100 Reference: Marla MF,[place], Indira HADLEY, et al. Evaluation,treatment, and prevention of vitamin D deficiency; an Endocrine Society clinical practice guideline. JCEM. 2010; 96(7):1911-30. PERFORMED BY: [facility] [address] [place] [address] PATHOLOGIST MANAGER OF PURCHASING ROSA ROBISON M.D. Performed By: #### T SH3 wRFLX, LIPID, [id number] #### [address] Vitamin D+Metabolites [Mass/ volume] in Serum or PlasmaOrdered By: Mirza Duff on 01-14-2023 Vitamin D+Metabolites [Mass/Vol] 30.5 ng/mL 30-100 [facility] Comment on above: VITAMIN D STATUS 25( [place])VITAMIN D RANGE (ng/mL) Deficient <20 Insufficient 20 to <30Sufficient 30 to 100Reference: Marla MF,[place] MEDINA, Indira HADLEY, et al. Evaluation,treatment, and prevention of vitamin D deficiency; an Endocrine Society clinical practice guideline. JCEM. 2010; 96(7):191-. HIV Ag/Abon 11-29-2022 HIV Ag/Ab Non-Reactive Normal NR [facility] Comment on above: Result Comment: No l aboratory evidence of HIV infection. If acute HIV infection is suspected, consider testing for HIV-1 RNA. Performed By: #### H IVCMB, TREP #### [facility] [place] [address] Public Relations Professional: Ladarius Andres MD Hep C Abon 11-29-2022 Hep C Ab Non-Reactive Normal [facility] Comment on above: Result Comment: The [...] By: #### C MPF, HCG, CBC #### [facility] [address] [place] [address] Public Relations Professional: Cal Gould MD #### AHCV #### [address] [address] Public Relations Professional: Ladarius Andres MD T.pallidum Ab Screenon 11-29 T.pallidum Ab Screen Non-Reactive Normal NR [facility] Comment on above: Result Comment: T. pallidum antibodies are not detected. There is no serological evidence of infection with T. pallidum (early primary syphilis cannot be excluded). Retest in 2-4 weeks if syphilis is clinically suspect. Performed By: #### H IVCMB, TREP #### [address] [address] Public Relations Professional: Ladarius Andres MD CBCon 11-28-2022 Erythrocyte distribution width (RBC) [Ratio] 16.8 % High 11.8-14.4 [facility] Comment on above: Performed By: #### C MPF, HCG, CBC #### [address] [place] [address] ( Public Relations Professional: Cal Gould MD #### AHCV #### [address] [phone] Public Relations Professional: Ladarius Andres MD Hematocrit (Bld) [Volume fraction] 28.0 % Low 36.3-47.1 [facility] Comment on above: Performed By: #### C MPF, HCG, CBC #### [address] [place] [address] Public Relations Professional: Cal Gould MD #### AHCV #### [address] [phone] Public Relations Professional: Ladarius Andres MD Hemoglobin (Bld) [Mass/Vol] 8.3 g/dL Low 11.9-15.1 [facility] Comment on above: Performed By: #### C MPF, HCG, CBC #### [address] [place] [address] Public Relations Professional: Cal Gould MD #### AHCV #### [address] [phone] Public Relations Professional: Ladarius Andres MD MCH (RBC) [Entitic mass] 23.9 pg Low 25.2-33.5 [facility] Comment on above: Performed By: #### C MPF, HCG, CBC #### [address] [place] [address] Public Relations Professional: Cal Gould MD #### AHCV #### [address] [phone] Public Relations Professional: Ladarius Andres MD MCHC (RBC) [Mass/Vol] 29.6 g/dL Normal 28.4-34.8 [facility] Comment on above: Performed By: #### C MPF, HCG, CBC #### [address] [place] [address] Public Relations Professional: Cal Gould MD #### AHCV #### [place] [address] Public Relations Professional: Ladarius Andres MD MCV (RBC) [Entitic vol] 80.7 fL Low 82.6-102.9 [facility] Comment on above: Performed By: #### C MPF, HCG, CBC #### [address] [place] [phone] Public Relations Professional: Cal Gould MD #### AHCV #### [address] [phone] Public Relations Professional: Ladarius Andres MD NRBC Automated 0.0 per 100 WBC Normal 0.0 [facility] Comment on above: Performed By: #### C MPF, HCG, CBC #### [address] [place] [phone] Public Relations Professional: Cal Gould MD #### AHCV #### [id number] [place] [address] Public Relations Professional: Ladarius Andres MD Platelet mean volume (Bld) [Entitic vol] 10.6 fL Normal 8.1-13.5 [facility] Comment on above: Performed By: #### C MPF, HCG, CBC #### [facility] [address] [place] [address] [address] [place], [place] [phone] Public Relations Professional: Cal Gould MD #### AHCV #### [address] [place] [address] Public Relations Professional: Ladarius Andres MD Platelets (Bld) [#/Vol] 452 10*3/uL Normal 138-453 [facility] Comment on above: Performed By: #### C MPF, HCG, CBC #### [address] [place], [place] [phone] Public Relations Professional: Cal Gould MD #### AHCV #### [address] [phone] Public Relations Professional: Ladarius Andres MD RBC (Bld) [#/Vol] 3.47 10*6/uL Low 3.95-5.11 [facility] Comment on above: Performed By: #### C MPF, HCG, CBC #### [address] [place], [place] [phone] Public Relations Professional: Cal Gould MD #### AHCV #### [address] [place], [place] 609[address] Public Relations Professional: Ladarius Andres MD WBC (Bld) [#/Vol] 6.3 10*3/uL Normal 3.5-11.3 [facility] Comment on above: Performed By: #### C MPF, HCG, CBC #### [facility] [address] [place] [address] Dr. [place], [place] [phone] Public Relations Professional: Cal Gould MD #### AHCV #### [address] [address] Public Relations Professional: Ladarius Andres MD Comp Metabol,Fastingon 11-28 Albumin [Mass/Vol] 3.9 g/dL Normal 3.5-5.2 [facility] Comment on above: Performed By: #### C MPF, HCG, CBC #### [facility] [address] [place] [address] [address] [place], [place] [phone] Public Relations Professional: Cal Gould MD #### AHCV #### [address] [address] Public Relations Professional: Ladarius Andres MD Albumin/Glob Ratio 1.3 Normal 1.0-2.5 [facility] Comment on above: Performed By: #### C MPF, HCG, CBC #### [facility] [address] [place] [address] [address] [place] [phone] ( Public Relations Professional: Cal Gould MD #### AHCV #### [address] [address] Public Relations Professional: Ladarisu Andres MD Alkaline Phos 76 U/L Normal 35-104 [facility] Comment on above: Performed By: #### C MPF, HCG, CBC #### [address] [place] [phone] ( Public Relations Professional: Cal Gould MD #### AHCV #### [address] [address] Public Relations Professional: Ladarius Andres MD ALT [Catalytic activity/Vol] 8 U/L Normal 5-33 [facility] Comment on above: Performed By: #### C MPF, HCG, CBC #### [facility] [address] [place] [address] Dr. [place], [place] [phone] Public Relations Professional: Cal Gould MD #### AHCV #### [facility] [address] [place] [address] Public Relations Professional: Ladarius Andres MD Anion gap [Moles/Vol] 7 mmol/L Low 9-17 [facility] Comment on above: Performed By: #### C MPF, HCG, CBC #### [facility] [address] [place], [place] [phone] Public Relations Professional: Cal Gould MD #### AHCV #### [address] [address] Public Relations Professional: Ladarius Andres MD AST [Catalytic activity/Vol] 15 U/L Normal <32 [facility] Comment on above: Performed By: #### C MPF, HCG, CBC #### [facility] [address] [place], [place] 0381983 Public Relations Professional: Cal Gould MD #### AHCV #### [address] [address] Public Relations Professional: Ladarius Andres MD Bilirubin [Mass/Vol] 0.2 mg/dL Low 0.3-1.2 [facility] Comment on above: Performed By: #### C MPF, HCG, CBC #### [facility] [address] [place], [place] [phone] Public Relations Professional: Cal Gould MD #### AHCV #### [address] [address] Public Relations Professional: Ladarius Andres MD BUN/CRE Ratio 16 Normal 9-20 [facility] Comment on above: Performed By: #### C MPF, HCG, CBC #### [facility] [address] [place], [place] [phone] Public Relations Professional: Cal Gould MD #### AHCV #### [address] [address] Public Relations Professional: Ladarius Andres MD Calcium [Mass/Vol] 9.1 mg/dL Normal 8.6-10.4 [facility] Comment on above: Performed By: #### C MPF, HCG, CBC #### [facility] [address] [place], [place] 9773783 Public Relations Professional: Cal Gould MD #### AHCV #### [address] [address] Public Relations Professional: Ladarius Andres MD Chloride [Moles/Vol] 107 mmol/L Normal 98-107 [facility] Comment on above: Performed By: #### C MPF, HCG, CBC #### [facility] [address] [place] [address] [address], [place] [phone] Public Relations Professional: Cal Gould MD #### AHCV #### [address] [address] Public Relations Professional: Ladarius Andres MD CO2 [Moles/Vol] 26 mmol/L Normal 20-31 [facility] Comment on above: Performed By: #### C MPF, HCG, CBC #### [facility] [address] [place] [address] [place], [place] [phone] Public Relations Professional: Cal Gould MD #### AHCV #### [address] [address] Public Relations Professional: Ladarius Andres MD Creatinine [Mass/Vol] 0.5 mg/dL Normal 0.5-0.9 [facility] Comment on above: Performed By: #### C MPF, HCG, CBC #### [facility] [address] [place] [address] [place], [place] [phone] Public Relations Professional: Cal Gould MD #### AHCV #### [address] [address] Public Relations Professional: Ladarius Andres MD GFR/1.73 sq M.predicted among non-blacks MDRD (S/P/Bld) [Vol rate/Area] mL/min/{1.73_m2} Normal >60 [facility] Comment on above: Result Comment: These [...] By: #### C MPF, HCG, CBC #### [address] [place] [address] Public Relations Professional: Cal Gould MD #### AHCV #### [address] [phone] Public Relations Professional: Ladarius Andres MD Glucose [Mass/Vol] 94 mg/dL Normal 70-99 [facility] Comment on above: Performed By: #### C MPF, HCG, CBC #### [address] [place] [phone] Public Relations Professional: Cal Gould MD #### AHCV #### [address] [phone] Public Relations Professional: Ladarius Andres MD Potassium [Moles/Vol] 4.5 mmol/L Normal 3.7-5.3 [facility] Comment on above: Performed By: #### C MPF, HCG, CBC #### [address] [place] [address] Public Relations Professional: Cal Gould MD #### AHCV #### [address] [phone] Public Relations Professional: Ladarius Andres MD Protein [Mass/Vol] 6.8 g/dL Normal 6.4-8.3 [facility] Comment on above: Performed By: #### C MPF, HCG, CBC #### [facility] [address] [place] [address] Public Relations Professional: Cal Gould MD #### AHCV #### [address] [place] [address] Public Relations Professional: Ladarius Andres MD Sodium [Moles/Vol] 140 mmol/L Normal 135-144 [facility] Comment on above: Performed By: #### C MPF, HCG, CBC #### [facility] [address] [place] [address] Public Relations Professional: Cal Gould MD #### AHCV #### [address] [address] Public Relations Professional: Ladarius Andres MD Urea nitrogen [Mass/Vol] 8 mg/dL Normal 6-20 [facility] Comment on above: Performed By: #### C MPF, HCG, CBC #### [facility] [address] [place] [address] Public Relations Professional: Cal Gould MD #### AHCV #### [address] [address] Public Relations Professional: Ladarius Andres MD HCG Screen, Bloodon 11-29-19 23 HCG Screen, Blood Negative Normal NEG [facility] Comment on above: Result Comment: Spec imens with hCG levels near the threshold of the test (25 mIU/mL) may give a negative or indeterminate result. In such cases, another test should be performed with a new specimen in 48-72 hours. If early is suspected clinically in this setting, correlation with quantitative serum b-hCG level is suggested. [facility] has confirmed the use of plasma for this test. This has not been cleared or approved by the U.S. Food and Drug Administration. The FDA has determined that such clearance is not necessary. Performed By: #### C MPF, HCG, CBC #### [facility] [address] [place], [place] [phone] Public Relations Professional: Cal Gould MD #### AHCV #### [facility] [address] [place], [place] [phone] Public Relations Professional: Ladarius Andres MD Liver Profileon 11-28-2022 Albumin [Mass/Vol] 3.9 g/dL Normal 3.5-5.2 [facility] Comment on above: Performed By: #### L IVP #### [facility] [address] [place], [place] [phone] Public Relations Professional: Cal Gould MD Albumin/Glob Ratio 1.5 Normal 1.0-2.5 [facility] Comment on above: Performed By: #### L IVP #### [facility] [address] [place], [place] [phone] Public Relations Professional: Cal Gould MD Alkaline Phos 82 U/L Normal 35-104 [facility] Comment on above: Performed By: #### L IVP #### [facility] [address] [place], [place] [phone] Public Relations Professional: Cal Gould MD ALT [Catalytic activity/Vol] 8 U/L Normal 5-33 [facility] Comment on above: Performed By: #### L IVP #### [facility] [address] [place], [place] [phone] Public Relations Professional: Cal Gould MD AST [Catalytic activity/Vol] 13 U/L Normal <32 [facility] Comment on above: Performed By: #### L IVP #### [facility] [address] [place], [place] [phone] Public Relations Professional: Cal Gould MD Bilirubin [Mass/Vol] 0.2 mg/dL Low 0.3-1.2 [facility] Comment on above: Performed By: #### L IVP #### [facility] [address] [place], [place] [phone] Public Relations Professional: Cal Gould MD Bilirubin, Indirect Can not be calculated Normal 0.0-1 .0 [facility] Comment on above: Performed By: #### L IVP #### [facility] [address] [place], [place] [phone] Public Relations Professional: Cal Gould MD Bilirubin.indirect [Mass/Vol] mg/dL Normal <0.3 [facility] Comment on above: Performed By: #### L IVP #### [facility] [address] [place], [place] [phone] Public Relations Professional: Cal Gould MD Protein [Mass/Vol] 6.5 g/dL Normal 6.4-8.3 [facility] Comment on above: Performed By: #### L IVP #### [facility] [address] [place] [address] Dr. [place], [place] [phone] Public Relations Professional: Cal Gould MD Final Surgical Pathology Rep [facility] 11-01-2022 Final Surgical Pathology Report . Pathology Reports Accession: Collected Date/Time: Received Date/Time: Pathologist: [id number] 10/31/2022 12:42 EDT 10/31/2022 14:23 EDT GALLITO PRADO MD Final Surgical Pathology Report DIAGNOSIS: STOMACH, BIOPSY: - NO SIGNIFICANT MICROSCOPIC PATHOLOGY CLINICAL INFORMATION: Procedure: ESOPHAGOGASTRODUODENOSCOPY Preoperative diagnosis: GASTROINTESTINAL BLEED, ACUTE BLOOD LOSS ANEMIA Postoperative diagnosis: GASTROINTESTINAL BLEED, ACUTE BLOOD LOSS ANEMIA SPECIMEN: A GASTRIC BX - R/O H PYLORI GROSS DESCRIPTION: All parts labelled with patient name and [id number] Received in formalin labeled gastric biopsy is 1 pani[place] tissue fragment measuring 0.5 x 0.1 cm. TS-1 Chuyita Cuba, Grossing Event Planning Intern/ Dr. Gallito Prado, Pathologist Dictated by Chuyita Cuba MICROSCOPIC DESCRIPTION: The microscopic examination is performed, except in the case of Gross Only. Electronically Signed by Pathology Report verified by [facility] GALLITO PRADO Sign out Date: 11/01/2022 17:08 Performing Lab: [facility], [address] [place] [id number] [place] [address] Pathology Dept Disclaimer If ancillary studies were utilized, the following Laboratory Developed Test (LDT) disclaimer will apply: Under CLIA requirements, [facility] is qualified to perform high complexity testing. For all ancillary stains, positive and negative controls stain appropriately. Performance characteristics of immunohistochemical and chromogenic in-situ hybridization tests have been determined by [facility]. These tests are used for clinical purposes, They should not be regarded as investigational or for research. Normal [facility] ([place]) .Auto Diffon 10-31-2022 Basophil, Absolute 0.1 10 3/mcL Normal 0.0-0.3 [facility] ([place]) Comment on above: Performed By: #### C BC, BMP, GFR, MORPH, ADIFF, ANEU #### [address] [address] Basophils/100 WBC (Bld) 0.9 % Normal 0.0-2.5 [facility] ([place]) Comment on above: Performed By: #### C BC, BMP, GFR, MORPH, ADIFF, ANEU #### [place] [address] Eosinophil, Absolute 0.2 10 3/mcL Normal 0.0-0.7 [facility], 1928–[facility] ([place]) Comment on above: Performed By: #### C BC, BMP, GFR, MORPH, ADIFF, ANEU #### [address] [address] Eosinophils/100 WBC (Bld) 2.7 % Normal 0.0-6.0 [facility] ([place]) Comment on above: Performed By: #### C BC, BMP, GFR, MORPH, ADIFF, ANEU #### [address] [address] Lymphocyte, Absolute 3.6 10 3/mcL Normal 0.9-4.3 [facility] ([place]) Comment on above: Performed By: #### C BC, BMP, GFR, MORPH, ADIFF, ANEU #### [address] [address] Lymphocytes/100 WBC (Bld) 50.5 % High 20.0-40.0 [facility] ([place]) Comment on above: Performed By: #### C BC, BMP, GFR, MORPH, ADIFF, ANEU #### [address] [address] Monocyte, Absolute 0.4 10 3/mcL Normal 0.1-1.4 [facility] ([place]) Comment on above: Performed By: #### C BC, BMP, GFR, MORPH, ADIFF, ANEU #### [address] [address] Monocytes/100 WBC (Bld) 5.7 % Normal 2.0-13.0 [facility] ([place]) Comment on above: Performed By: #### C BC, BMP, GFR, MORPH, ADIFF, ANEU #### [address] [address] Neutrophils/100 WBC (Bld) 40.2 % Low 50.0-75.0 [facility] ([place] Comment on above: Performed By: #### C BC, BMP, GFR, MORPH, ADIFF, ANEU #### [address] [address] .GFRon 10-31-2022 GFR >60 Normal [facility] ([place] Comment on above: Result Comment: GFR Population [...] Performed By: #### G FR, BMP #### [address] [address] GFR Non- >60 Normal [facility] ([place] Comment on above: Result Comment: GFR Population [...] Performed By: #### G FR, BMP #### [address] [address] GFR Non- >60 Normal [facility] ([place] Comment on above: Result Comment: GFR Population [...] BC, BMP, GFR, MORPH, ADIFF, ANEU #### [address] [address] GFR >60 Normal [facility] ([place] Comment on above: Result Comment: GFR Population [...] BC, BMP, GFR, MORPH, ADIFF, ANEU #### [address] [address] .Morphon 10-31-2022 Platelet Estimate Normal Normal [facility] ([place] Comment on above: Performed By: #### C BC, BMP, GFR, MORPH, ADIFF, ANEU #### [place] [address] RBC morphology finding Nom (Bld) See Below Normal [facility] ([place] Comment on above: Result Comment: RBC Morphology appears Normal Performed By: #### C BC, BMP, GFR, MORPH, ADIFF, ANEU #### [place] [address] .NEUABSon 10-31-2022 Neutrophil, Absolute 2.8 10 3/mcL Normal 2.3-8.1 [facility] 1928[facility] ([place]) Comment on above: Performed By: #### C BC, BMP, GFR, MORPH, ADIFF, ANEU #### [place] [address] BMPon 10-31-2022 BUN/Creatinine Ratio 22.0 ratio Normal 10.0-22.0 [facility] ([place]) Comment on above: Performed By: #### G FR, BMP #### [place] [address] Calcium [Mass/Vol] 8.1 mg/dL Low 8.7-10.4 [facility] ([place]) Comment on above: Performed By: #### G FR, BMP #### [place] [address] Chloride [Moles/Vol] 112 mmol/L High 98-110 [facility] ([place]) Comment on above: Performed By: #### G FR, BMP #### [place] [id number] CO2 [Moles/Vol] 24 mmol/L Normal 22-32 [facility] ([place] Comment on above: Performed By: #### G FR, BMP #### [address] [address] Creatinine [Mass/Vol] 0.59 mg/dL Normal 0.50-1.20 [facility] ([place]) Comment on above: Performed By: #### G FR, BMP #### [address] [address] Electrolyte Balance 6.0 mEq/L Normal 4.0-15.0 [facility] ([place] Comment on above: Performed By: #### G FR, BMP #### [address] [address] Glucose [Mass/Vol] 88 mg/dL Normal 70-110 [facility] ([place] Comment on above: Performed By: #### G FR, BMP #### [address] [address] Potassium [Moles/Vol] 3.6 mmol/L Normal 3.5-5.0 [facility] ([place]) Comment on above: Performed By: #### G FR, BMP #### [address] [address] Sodium [Moles/Vol] 142 mmol/L Normal 136-145 [facility] ([place]) Comment on above: Performed By: #### G FR, BMP #### [address] [address] Urea nitrogen [Mass/Vol] 13.0 mg/dL Normal 8.0-22.0 [facility] ([place] Comment on above: Performed By: #### G FR, BMP #### [address] [address] BUN/Creatinine Ratio 25.9 ratio High 10.0-22.0 [facility] ([place]) Comment on above: Performed By: #### C BC, BMP, GFR, MORPH, ADIFF, ANEU #### [address] [address] Calcium [Mass/Vol] 7.9 mg/dL Low 8.7-10.4 [facility] ([place] Comment on above: Performed By: #### C BC, BMP, GFR, MORPH, ADIFF, ANEU #### [address] [address] Chloride [Moles/Vol] 113 mmol/L High 98-110 [facility] ([place]) Comment on above: Performed By: #### C BC, BMP, GFR, MORPH, ADIFF, ANEU #### [address] [address] CO2 [Moles/Vol] 23 mmol/L Normal 22-32 [facility] ([place] Comment on above: Performed By: #### C BC, BMP, GFR, MORPH, ADIFF, ANEU #### [address] [address] Creatinine [Mass/Vol] 0.58 mg/dL Normal 0.50-1.20 [facility] ([place]) Comment on above: Performed By: #### C BC, BMP, GFR, MORPH, ADIFF, ANEU #### [address] [address] Electrolyte Balance 5.0 mEq/L Normal 4.0-15.0 [facility] ([place] Comment on above: Performed By: #### C BC, BMP, GFR, MORPH, ADIFF, ANEU #### [address] [address] Glucose [Mass/Vol] 83 mg/dL Normal 70-110 [facility] ([place] Comment on above: Performed By: #### C BC, BMP, GFR, MORPH, ADIFF, ANEU #### [address] [address] Potassium [Moles/Vol] 3.5 mmol/L Normal 3.5-5.0 [facility] ([place]) Comment on above: Performed By: #### C BC, BMP, GFR, MORPH, ADIFF, ANEU #### [address] [address] Sodium [Moles/Vol] 141 mmol/L Normal 136-145 [facility] ([place] Comment on above: Performed By: #### C BC, BMP, GFR, MORPH, ADIFF, ANEU #### [place] [address] Urea nitrogen [Mass/Vol] 15.0 mg/dL Normal 8.0-22.0 [facility] ([place] Comment on above: Performed By: #### C BC, BMP, GFR, MORPH, ADIFF, ANEU #### [place] [address] CBCon 10-31-2022 Erythrocyte distribution width (RBC) [Ratio] 14.6 % Normal 11.5-15.5 [facility] ([place] Comment on above: Performed By: #### C BC, BMP, GFR, MORPH, ADIFF, ANEU #### [place] [address] Hematocrit (Bld) [Volume fraction] 23.0 % Low 34.0-46.0 [facility] ([place] Comment on above: Performed By: #### C BC, BMP, GFR, MORPH, ADIFF, ANEU #### [place] [address] Hgb 7.7 G/dL Low 12.0-16.0 [facility] ([place] Comment on above: Performed By: #### C BC, BMP, GFR, MORPH, ADIFF, ANEU #### [place] [address] MCH (RBC) [Entitic mass] 28.6 pg Normal 27.0-33.0 [facility] ([place] Comment on above: Performed By: #### C BC, BMP, GFR, MORPH, ADIFF, ANEU #### [place] [address] MCHC 33.5 G/dL Normal 32.0-36.0 [facility] ([place] Comment on above: Performed By: #### C BC, BMP, GFR, MORPH, ADIFF, ANEU #### [place] [address] MCV (RBC) [Entitic vol] 85.4 fL Normal 80.0-99.0 [facility] ([place] Comment on above: Performed By: #### C BC, BMP, GFR, MORPH, ADIFF, ANEU #### [address] [address] Platelet 231 10 3/mcL Normal 150-450 [facility] ([place]) Comment on above: Performed By: #### C BC, BMP, GFR, MORPH, ADIFF, ANEU #### [address] [address] Platelet mean volume (Bld) [Entitic vol] 8.2 fL Normal 6.6-10.5 [facility] ([place]) Comment on above: Performed By: #### C BC, BMP, GFR, MORPH, ADIFF, ANEU #### [address] [address] RBC 2.70 10 6/mcL Low 4.10-5.30 [facility] ([place] Comment on above: Performed By: #### C BC, BMP, GFR, MORPH, ADIFF, ANEU #### [address] [address] WBC 7.1 10 3/mcL Normal 4.5-10.8 [facility] ([place] Comment on above: Performed By: #### C BC, BMP, GFR, MORPH, ADIFF, ANEU #### [address] [address] LABORATORYOrdered By: Erum Ramirez on 10-31-2022 Beta HCG ( test) Ql (U) HCG not detected.Very dilute urine specimens, as indicated by a low specific gravity, may not contain medical device sales representative levels of hCG.If is still suspected, a first morning urine specimen should be collected 48 hours later and tested. Invalid Interpretation Code AH Manual Urine SS HCG Qn (U) Negative (10/31/22 11:10 AM) Invalid Interpretation Code AH Manual Urine SS LABORATORYOrdered By: SYSTEM SYSTEM on 10-31-2022 Calcium [Mass/Vol] 8.1 mg/dL Invalid Interpretation Code 8.7 - 10.4 mg/dL ADM SS Chloride [Moles/Vol] 112 mmol/L Invalid Interpretation Code 98 - 110 mEq/L AH ADM SS CO2 [Moles/Vol] 24 mmol/L Invalid Interpretation Code 22 - 32 mEq/L AH ADM SS Creatinine [Mass/Vol] 0.59 mg/dL Invalid Interpretation Code 0.50 - 1.20 mg/dL ADM SS Electrolyte Balance 6.0 mEq/L Invalid Interpretation Code 4.0 - 15.0 mEq/L AH ADM SS GFR/1.73 sq M.predicted among blacks [...] Invalid Interpretation Code 0.0 - 2.5 % Workflow SS Calcium [Mass/Vol] 7.9 mg/dL Invalid [...] Invalid Interpretation Code 0.0 - 6.0 % AH Workflow SS Erythrocyte distribution width (RBC) [Ratio] 14.6 % Invalid Interpretation Code 11.5 - 15.5 % AH Workflow SS GFR/1.73 sq M.predicted among blacks [...] Invalid Interpretation Code 12.0 - 16.0 G/dL AH Workflow SS Lymphocytes (Bld) [#/Vol] 3.6 103/mcL Invalid Interpretation Code 0.9 - 4.3 10^3/mcL AH Workflow SS Lymphocytes/100 WBC (Bld) 50.5 % Invalid Interpretation Code 20.0 - 40.0 % AH Workflow SS MCH (RBC) [Entitic mass] 28.6 pg Invalid Interpretation Code 27.0 - 33.0 pg AH Workflow SS MCHC 33.5 G/dL Invalid Interpretation Code 32.0 - 36.0 G/dL AH Workflow SS MCV (RBC) [Entitic vol] 85.4 fL Invalid Interpretation Code 80.0 - 99.0 fL Workflow SS Monocytes (Bld) [#/Vol] 0.4 103/mcL Invalid Interpretation Code 0.1 - 1.4 10^3/mcL AH Workflow SS Monocytes/100 WBC (Bld) 5.7 % Invalid Interpretation Code 2.0 - 13.0 % AH Workflow SS Neutrophils (Bld) [#/Vol] 2.8 103/mcL Invalid Interpretation Code 2.3 - 8.1 10^3/mcL AH Workflow SS Neutrophils/100 WBC (Bld) 40.2 % Invalid Interpretation Code 50.0 - 75.0 % Workflow SS Platelet mean volume (Bld) [Entitic [...] mg/dL ADM SS Urea nitrogen/Creatinine [Mass ratio] 25.9 ratio Invalid Interpretation Code 10.0 - 22.0 ratio AH ADM SS WBC (Bld) [#/Vol] 7.1 103/mcL Invalid Interpretation Code 4.5 - 10.8 10^3/mcL Workflow SS PREGUon 10-31-2022 HCG ( test) Ql (U) Negative Normal [facility] ([place] Comment on above: Performed By: #### P REGU #### [address] [address] test (u) int Not detected Invalid Interpretation Code [facility] ([place] Comment on above: Performed By: #### P REGU #### [address] [address] 10-10-2022 36 Tried calling this p atient many times... No answer & I get a message saying the mailbox is full & cannot accept anymore messages, then it hangs up on me! Normal [facility] 08-29-2022 36 Called to r/s 08/31 a pt with elmer. No answer LM [facility] 07-11-2022 36 Spoke w pnt. Appt made Normal [facility] 07-08-2022 36 Called patient to ne jareth appointment, patient was driving and asked me to call her back in 20 minutes. Normal [facility] 07-07-2022 36 Name of caller: Khushboo Jameson Contact phone number: [phone] Relationship to Patient: patient Provider: Practice: [facility] Chief Complaint/Reason for Call: Zack is requesting to be scheduled for a n/p appointment.Please contact and advise. Best time of day caller can be reached: Any Patient advised that office/PCP has 24-48 business hours to return their call: Yes Normal [facility] Basic Metabolic Panelon 10-15 Anion gap [Moles/Vol] 8 mmol/L Normal 3-13 [facility] Comment on above: Performed By: #### CAMILLE WEEMS MDIFF #### [place] [address] [place] [address] Calcium [Mass/Vol] 9.3 mg/dL Normal 8.4-10.4 [facility] Comment on above: Performed By: #### CAMILLE WEEMS MDIFF #### [facility] [address] [place] [address] CO2 [Moles/Vol] 27 mmol/L Normal 22-30 [facility] Comment on above: Performed By: #### CAMILLE WEEMS MDIFF #### [facility] [address] [place] [address] Glucose [Mass/Vol] 58 mg/dL Low 70-100 [facility] Comment on above: Performed By: #### CAMILLE WEEMS MDIFF #### [facility] [address] [place] [address] Urea nitrogen [Mass/Vol] 13 mg/dL Normal 9-20 [facility] Comment on above: Performed By: #### CAMILLE WEEMS MDIFF #### [facility] [address] [place] [address] Creatinine [Mass/Vol] 0.54 mg/dL Normal 0.52-1.25 [facility] Comment on above: Performed By: #### CAMILLE WEEMS MDIFF #### [facility] [address] [place], [place] eGFR OTHER > 90.0 Normal >60 [facility] Comment on above: Result Comment: KDIG O [...] Performed By: #### CAMILLE WEEMS MDIFF #### [facility] [address] [place], [place] GFR/1.73 sq M.predicted among blacks MDRD (S/P/Bld) [Vol rate/Area] mL/min/{1.73_m2} Normal >60 [facility] Comment on above: Performed By: #### CAMILLE WEEMS MDIFF #### [facility] [address] [place], [place] Chloride [Moles/Vol] 104 mmol/L Normal 98-107 [facility] Comment on above: Performed By: #### CAMILLE WEEMS MDIFF #### [facility] [address] [place], [place] Potassium [Moles/Vol] 4.5 mmol/L Normal 3.5-5.1 [facility] Comment on above: Performed By: #### CAMILLE WEEMS MDIFF #### [place] [address] [address] [place], [place] Sodium [Moles/Vol] 139 mmol/L Normal 135-145 [facility] Comment on above: Performed By: #### CAMILLE WEEMS MDIFF #### [place] [address] [address] [place], [place] Hemogram w/ Autodiffon 10-31 Erythrocyte distribution width (RBC) [Ratio] 33.5 % High 11.5-14.5 [facility] Comment on above: Performed By: #### CAMILLE WEEMS MDIFF #### [place] [address] [address] [place], [place] Hematocrit (Bld) [Volume fraction] 29.2 % Low 35.0-47.0 [facility] Comment on above: Performed By: #### B CAMILLE SWAIN MDIFF #### [place] [address] [address] [place], [place] Hemoglobin (Bld) [Mass/Vol] 8.7 g/dL Low 11.7-16.0 [facility] Comment on above: Performed By: #### CAMILLE WEEMS MDIFF #### [place] [address] [address] [place], [place] MCH (RBC) [Entitic mass] 19.3 pg Low 26.0-34.0 [facility] Comment on above: Performed By: #### CAMILLE WEEMS MDIFF #### [place] [address] [address] [place] MCHC 29.9 % Low 32.0-36.0 [facility] Comment on above: Performed By: #### CAMILLE WEEMS MDIFF #### [place] [address] [address] [place], [place] MCV (RBC) [Entitic vol] 64.5 fL Low 79.0-98.0 [facility] Comment on above: Performed By: #### CAMILLE WEEMS MDIFF #### [place] [address] [address] [place], [place] Platelet mean volume (Bld) [Entitic vol] 8.5 fL Normal 7.4-12.4 [facility] Comment on above: Result Comment: MPV is a calculated measurement using platelet volume ratio. Performed By: #### CAMILLE WEEMS MDIFF #### [place] [address] [address] [place], [place] Platelets (Bld) [#/Vol] 243 10*3/uL Normal 140-440 [facility] Comment on above: Performed By: #### CAMILLE WEEMS MDIFF #### [place] [address] [address] [place], [place] RBC (Bld) [#/Vol] 4.52 10*6/uL Normal 3.80-5.20 [facility] Comment on above: Performed By: #### CAMILLE WEEMS MDIFF #### [place] [address] [address] [place], [place] WBC (Bld) [#/Vol] 6.2 10*3/uL Normal 3.6-10.7 [facility] Comment on above: Performed By: #### CAMILLE WEEMS MDIFF #### [place] [address] [address] [place], [place] Manual Diffon 10-31-2021 Abs Eosin Cnt 0.2 10*3/uL Normal 0.0-0.5 [facility] Comment on above: Performed By: #### CAMILLE WEEMS MDIFF #### [place] [address] [address] [place], [place] Abs Lymph Cnt 3.4 10*3/uL Normal 1.1-4.5 [facility] Comment on above: Performed By: #### CAMILLE WEEMS MDIFF #### [place] [address] [address] [place], [place] Abs Monocyte Cnt 0.4 10*3/uL Normal 0.2-1.1 [facility] Comment on above: Performed By: #### CAMILLE WEEMS MDIFF #### [place] [address] [address] [place], [place] Abs Neutrophile Cnt 2.1 10*3/uL Low 2.2-8.2 [facility] Comment on above: Performed By: #### CAMILLE WEEMS MDIFF #### [facility] [address] [place], [place] Anisocytosis Moderate Normal [facility] Comment on above: Performed By: #### B CAMILLE SWAIN MDIFF #### [facility] [address] [place], [place] Eosinophils 4 % Normal 1-6 [facility] Comment on above: Performed By: #### B GEE3CAMILLE Gamino MDIFF #### [facility] [address] [place], [place] Hypochromia Slight Normal [facility] Comment on above: Performed By: #### B CAMILLE SWAIN MDIFF #### [place] [address] [address] [place], [place] Lymphocytes 55 % High 20-40 [facility] Comment on above: Performed By: #### B CAMILLE SWAIN MDIFF #### [facility] [address] [place], [place] Microcytosis Slight Normal [facility] Comment on above: Performed By: #### CAMILLE WEEMS MDIFF #### [facility] [address] [place], [place] Monocytes 7 % Normal 2-10 [facility] Comment on above: Performed By: #### CAMILLE WEEMS MDIFF #### [facility] [address] [place], [place] Ovalocytes Moderate Normal [facility] Comment on above: Performed By: #### CAMILLE WEEMS MDIFF #### [facility] [address] [place], [place] Poikilocytosis Moderate Normal [facility] Comment on above: Performed By: #### Mel FLYNN3CAMILLE Gamino MDIFF #### [facility] [address] [place], [place] Polychromasia Slight Normal [facility] Comment on above: Performed By: #### B GEE3CAMILLE Gamino MDIFF #### [facility] [address] [place], [place] RBC Morphology ABNORMAL Normal [facility] Comment on above: Performed By: #### CAMILLE WEEMS MDIFF #### [facility] [address] [place], [place] Seg Neutrophils 34 % Low 40-80 [facility] Comment on above: Performed By: #### CAMILLE WEEMS MDIFF #### [place] [address] [address] [place], [place] Target Cells Slight Normal [facility] Comment on above: Performed By: #### CAMILLE WEEMS MDIFF #### [place] [address] [address] [place], [place] Tear Drop Forms Slight Normal [facility] Comment on above: Performed By: #### CAMILLE WEEMS MDIFF #### [place] [address] [address] [place], [place] Abs Baso Cnt 0.0 10*3/uL Normal 0.0-0.2 [facility] Comment on above: Performed By: #### CAMILLE WEEMS MDIFF #### [place] [address] [address] [place], [place] Bands 0 % Normal 0-3 [facility] Comment on above: Performed By: #### CAMILLE WEEMS MDIFF #### [place] [address] [address] [place], [place] Basophils 0 % Normal 0-2 [facility] Comment on above: Performed By: #### CAMILLE WEEMS MDIFF #### [place] [address] [address] [place], [place] Cells counted 100 Normal [facility] Comment on above: Performed By: #### CAMILLE WEEMS MDIFF #### [place] [address] [address] [place], [place] Basic Metabolic Panelon 07-1 Anion gap [Moles/Vol] 9 mmol/L Normal 3-13 [facility] Comment on above: Performed By: #### CAMILLE WEEMS MDIFF #### [facility] [address] [place] [address] Calcium [Mass/Vol] 9.2 mg/dL Normal 8.4-10.4 [facility] Comment on above: Performed By: #### B CAMILLE SWAIN MDIFF #### [facility] [address] [place] [address] CO2 [Moles/Vol] 27 mmol/L Normal 22-30 [facility] Comment on above: Performed By: #### B CAMILLE SWAIN MDIFF #### [facility] [address] [place] [address] Glucose [Mass/Vol] 95 mg/dL Normal 70-100 [facility] Comment on above: Performed By: #### B CAMILLE SWAIN MDIFF #### [facility] [address] [place] [address] Urea nitrogen [Mass/Vol] 12 mg/dL Normal 9-20 [facility] Comment on above: Performed By: #### B CAMILLE SWAIN MDIFF #### [facility] [address] [place] [address] Creatinine [Mass/Vol] 0.46 mg/dL Low 0.52-1.25 [facility] Comment on above: Performed By: #### B CAMILLE SWAIN MDIFF #### [facility] [address] [place] [address] eGFR OTHER > 90.0 Normal >60 [facility] Comment on above: Result Comment: KDIG O [...] Performed By: #### CAMILLE WEEMS MDIFF #### [place] [address] [place], [place] GFR/1.73 sq M.predicted among blacks MDRD (S/P/Bld) [Vol rate/Area] mL/min/{1.73_m2} Normal >60 [facility] Comment on above: Performed By: #### CAMILLE WEEMS MDIFF #### [address] Chloride [Moles/Vol] 104 mmol/L Normal 98-107 [facility] Comment on above: Performed By: #### CAMILLE WEEMS MDIFF #### [address] Potassium [Moles/Vol] 4.2 mmol/L Normal 3.5-5.1 [facility] Comment on above: Performed By: #### CAMILLE WEEMS MDIFF #### [address] Sodium [Moles/Vol] 140 mmol/L Normal 135-145 [facility] Comment on above: Performed By: #### CAMILLE WEEMS MDIFF #### [address] [place], [place] Hemogram w/ Autodiffon 10-28 Abs Baso Cnt 0.1 10*3/uL Normal 0.0-0.2 [facility] Comment on above: Performed By: #### CAMILLE WEEMS MDIFF #### [address] Abs Neutrophile Cnt 4.7 10*3/uL Normal 1.8-7.0 [facility] Comment on above: Performed By: #### CAMILLE WEEMS MDIFF #### [address] Basophils/100 WBC (Bld) 0.9 % Normal 0.0-2.0 [facility] Comment on above: Performed By: #### CAMILLE WEEMS MDIFF #### [facility] [address] [place], [place] Eosinophils (Bld) [#/Vol] 0.1 10*3/uL Normal 0.0-0.5 [facility] Comment on above: Performed By: #### CAMILLE WEEMS MDIFF #### [place] [address] [address] [place], [place] Eosinophils/100 WBC (Bld) 2.0 % Normal 1.0-6.0 [facility] Comment on above: Performed By: #### CAMILLE WEEMS MDIFF #### [place] [address] [address] [place], [place] Erythrocyte distribution width (RBC) [Ratio] 29.2 % High 11.5-14.5 [facility] Comment on above: Performed By: #### CAMILLE WEEMS MDIFF #### [place] [address] [address] [place], [place] Granulocytes/100 WBC (Bld) 73.7 % Normal 40.0-80.0 [facility] Comment on above: Performed By: #### CAMILLE WEEMS MDIFF #### [place] [address] [address] [place], [place] Hematocrit (Bld) [Volume fraction] 28.7 % Low 35.0-47.0 [facility] Comment on above: Performed By: #### CAMILLE WEEMS MDIFF #### [place] [address] [address] [place], [place] Hemoglobin (Bld) [Mass/Vol] 8.2 g/dL Low 11.7-16.0 [facility] Comment on above: Performed By: #### CAMILLE WEEMS MDIFF #### [place] [address] [address] [place], [place] Lymphocytes (Bld) [#/Vol] 1.1 10*3/uL Normal 1.0-4.3 [facility] Comment on above: Performed By: #### CAMILLE WEEMS MDIFF #### [place] [address] [address] [place], [place] Lymphocytes/100 WBC (Bld) 17.4 % Low 20.0-40.0 [facility] Comment on above: Performed By: #### B CAMILLE SWAIN MDIFF #### [place] [address] [address] [place], [place] MCH (RBC) [Entitic mass] 17.7 pg Low 26.0-34.0 [facility] Comment on above: Performed By: #### B CAMILLE SWAIN MDIFF #### [place] [address] [address] [place] MCHC 28.7 % Low 32.0-36.0 [facility] Comment on above: Performed By: #### B CAMILLE SWAIN MDIFF #### [place] [address] [address] [place], [place] MCV (RBC) [Entitic vol] 61.7 fL Low 79.0-98.0 [facility] Comment on above: Performed By: #### B CAMILLE SWAIN MDIFF #### [place] [address] [place], [place] Monocytes (Bld) [#/Vol] 0.4 10*3/uL Normal 0.0-0.8 [facility] Comment on above: Performed By: #### CAMILLE WEEMS MDIFF #### [place] [address] [place], [place] Monocytes/100 WBC (Bld) 6.0 % Normal 2.0-10.0 [facility] Comment on above: Performed By: #### CAMILLE WEEMS MDIFF #### [place] [address] [place], [place] Platelet mean volume (Bld) [Entitic vol] 8.1 fL Normal 7.4-12.4 [facility] Comment on above: Result Comment: MPV is a calculated measurement using platelet volume ratio. Performed By: #### CAMILLE WEEMS MDIFF #### [place] [address] [address] [place], [place] Platelets (Bld) [#/Vol] 256 10*3/uL Normal 140-440 [facility] Comment on above: Performed By: #### CAMILLE WEEMS MDIFF #### [place] [address] [address] [place], [place] RBC (Bld) [#/Vol] 4.65 10*6/uL Normal 3.80-5.20 [facility] Comment on above: Performed By: #### CAMILLE WEEMS MDIFF #### [place] [address] [address] [place], [place] WBC (Bld) [#/Vol] 6.4 10*3/uL Normal 3.6-10.7 [facility] Comment on above: Performed By: #### CAMILLE WEEMS MDIFF #### [place] [address] [address] [place], [place] Basic Metabolic Panelon 07-1 -2021 Calcium [Mass/Vol] 9.1 mg/dL Normal 8.4-10.4 [facility] Comment on above: Performed By: #### CAMILLE WEEMS MDIFF #### [place] [address] [address] [place], [place] Anion gap [Moles/Vol] 9 mmol/L Normal 3-13 [facility] Comment on above: Performed By: #### CAMILLE WEEMS MDIFF #### [place] [address] [address] [place], [place] CO2 [Moles/Vol] 27 mmol/L Normal 22-30 [facility] Comment on above: Performed By: #### CAMILLE WEEMS MDIFF #### [place] [address] [address] [place], [place] Creatinine [Mass/Vol] 0.49 mg/dL Low 0.52-1.25 [facility] Comment on above: Performed By: #### CAMILLE WEEMS MDIFF #### [facility] [address] [place] [address] eGFR OTHER > 90.0 Normal >60 [facility] Comment on above: Result Comment: KDIG O [...] Performed By: #### CAMILLE WEEMS MDIFF #### [address] [place] [address] GFR/1.73 sq M.predicted among blacks MDRD (S/P/Bld) [Vol rate/Area] mL/min/{1.73_m2} Normal >60 [facility] Comment on above: Performed By: #### CAMILLE WEEMS MDIFF #### [address] [place] [address] Glucose [Mass/Vol] 88 mg/dL Normal 70-100 [facility] Comment on above: Performed By: #### CAMILLE WEEMS MDIFF #### [address] [place] [address] Urea nitrogen [Mass/Vol] 9 mg/dL Normal 9-20 [facility] Comment on above: Performed By: #### CAMILLE WEEMS MDIFF #### [address] [place] [address] Chloride [Moles/Vol] 106 mmol/L Normal 98-107 [facility] Comment on above: Performed By: #### CAMILLE WEEMS MDIFF #### [address] [place], [place] Potassium [Moles/Vol] 4.2 mmol/L Normal 3.5-5.1 [facility] Comment on above: Performed By: #### CAMILLE WEEMS MDIFF #### [address] [place], [place] Sodium [Moles/Vol] 143 mmol/L Normal 135-145 [facility] Comment on above: Performed By: #### CAMILLE WEEMS MDIFF #### [address] [place], [place] Hemogram w/ Autodiffon 10-27 Abs Baso Cnt 0.1 10*3/uL Normal 0.0-0.2 [facility] Comment on above: Performed By: #### CAMILLE WEEMS MDIFF #### [address] [place], [place] Abs Neutrophile Cnt 3.0 10*3/uL Normal 1.8-7.0 [facility] Comment on above: Performed By: #### CAMILLE WEEMS MDIFF #### [address] [address] [place], [place] Basophils/100 WBC (Bld) 2.4 % High 0.0-2.0 [facility] Comment on above: Performed By: #### CAMILLE WEEMS MDIFF #### [address] [place], [place] Eosinophils (Bld) [#/Vol] 0.2 10*3/uL Normal 0.0-0.5 [facility] Comment on above: Performed By: #### CAMILLE WEEMS MDIFF #### [address] Eosinophils/100 WBC (Bld) 3.2 % Normal 1.0-6.0 [facility] Comment on above: Performed By: #### CAMILLE WEEMS MDIFF #### [address] [place], [place] Erythrocyte distribution width (RBC) [Ratio] 26.6 % High 11.5-14.5 [facility] Comment on above: Performed By: #### CAMILLE WEEMS MDIFF #### [address] [place], [place] Granulocytes/100 WBC (Bld) 53.9 % Normal 40.0-80.0 [facility] Comment on above: Performed By: #### CAMILLE WEEMS MDIFF #### [address] [place], [place] Hematocrit (Bld) [Volume fraction] 26.2 % Low 35.0-47.0 [facility] Comment on above: Performed By: #### CAMILLE WEEMS MDIFF #### [address] [place], [place] Hemoglobin (Bld) [Mass/Vol] 7.9 g/dL Low 11.7-16.0 [facility] Comment on above: Performed By: #### CAMILLE WEEMS MDIFF #### [address] [place], [place] Lymphocytes (Bld) [#/Vol] 1.8 10*3/uL Normal 1.0-4.3 [facility] Comment on above: Performed By: #### CAMILLE WEEMS MDIFF #### [address] [place], [place] Lymphocytes/100 WBC (Bld) 32.7 % Normal 20.0-40.0 [facility] Comment on above: Performed By: #### CAMILLE WEEMS MDIFF #### [address] [place], [place] MCH (RBC) [Entitic mass] 18.0 pg Low 26.0-34.0 [facility] Comment on above: Performed By: #### Mel [id number] Gamino MDIFF #### [address] [place], [place] MCHC 30.0 % Low 32.0-36.0 [facility] Comment on above: Performed By: #### CAMILLE WEEMS MDIFF #### [address] [place], [place] MCV (RBC) [Entitic vol] 60.0 fL Low 79.0-98.0 [facility] Comment on above: Performed By: #### B CAMILLE SWAIN MDIFF #### [address] [place], [place] Monocytes (Bld) [#/Vol] 0.4 10*3/uL Normal 0.0-0.8 [facility] Comment on above: Performed By: #### CAMILLE WEEMS MDIFF #### [address] [place], [place] Monocytes/100 WBC (Bld) 7.8 % Normal 2.0-10.0 [facility] Comment on above: Performed By: #### CAMILLE WEEMS MDIFF #### [address] [place], [place] Platelet mean volume (Bld) [Entitic vol] 8.5 fL Normal 7.4-12.4 [facility] Comment on above: Result Comment: MPV is a calculated measurement using platelet volume ratio. Performed By: #### CAMILLE WEEMS MDIFF #### [address] [place], [place] Platelets (Bld) [#/Vol] 276 10*3/uL Normal 140-440 [facility] Comment on above: Performed By: #### B CAMILLE SWAIN MDIFF #### [address] [place], [place] RBC (Bld) [#/Vol] 4.37 10*6/uL Normal 3.80-5.20 [facility] Comment on above: Performed By: #### CAMILLE WEEMS MDIFF #### [address] [place], [place] WBC (Bld) [#/Vol] 5.5 10*3/uL Normal 3.6-10.7 [facility] Comment on above: Performed By: #### CAMILLE WEEMS MDIFF #### [facility] [address] [place] [address] Basic Metabolic Panelon 07- Calcium [Mass/Vol] 8.7 mg/dL Normal 8.4-10.4 [facility] Comment on above: Performed By: #### B CAMILLE SWAIN MDIFF #### [facility] [address] [place] [address] Anion gap [Moles/Vol] 7 mmol/L Normal 3-13 [facility] Comment on above: Performed By: #### CAMILLE WEEMS MDIFF #### [facility] [address] [place], [place] CO2 [Moles/Vol] 26 mmol/L Normal 22-30 [facility] Comment on above: Performed By: #### CAMILLE WEEMS MDIFF #### [facility] [address] [place], [place] Creatinine [Mass/Vol] 0.52 mg/dL Normal 0.52-1.25 [facility] Comment on above: Performed By: #### CAMILLE WEEMS MDIFF #### [facility] [address] [place], [place] eGFR OTHER > 90.0 Normal >60 [facility] Comment on above: Result Comment: KDIG O [...] Performed By: #### CAMILLE WEEMS MDIFF #### [facility] [address] [place], [place] GFR/1.73 sq M.predicted among blacks MDRD (S/P/Bld) [Vol rate/Area] mL/min/{1.73_m2} Normal >60 [facility] Comment on above: Performed By: #### CAMILLE WEEMS MDIFF #### [address] [place], [place] Glucose [Mass/Vol] 92 mg/dL Normal 70-100 [facility] Comment on above: Performed By: #### CAMILLE WEEMS MDIFF #### [address] [place], [place] Urea nitrogen [Mass/Vol] 10 mg/dL Normal 9-20 [facility] Comment on above: Performed By: #### CAMILLE WEEMS MDIFF #### [address] [place], [place] Chloride [Moles/Vol] 108 mmol/L High 98-107 [facility] Comment on above: Performed By: #### CAMILLE WEEMS MDIFF #### [address] [place], [place] Potassium [Moles/Vol] 3.9 mmol/L Normal 3.5-5.1 [facility] Comment on above: Performed By: #### CAMILLE WEEMS MDIFF #### [address] [place], [place] Sodium [Moles/Vol] 141 mmol/L Normal 135-145 [facility] Comment on above: Performed By: #### CAMILLE WEEMS MDIFF #### [address] [place] [address] Hemogram w/ Autodiffon 10-26 Abs Baso Cnt 0.0 10*3/uL Normal 0.0-0.2 [facility] Comment on above: Performed By: #### CAMILLE WEEMS MDIFF #### [address] [place], [place] Abs Neutrophile Cnt 1.7 10*3/uL Low 1.8-7.0 [facility] Comment on above: Performed By: #### CAMILLE WEEMS MDIFF #### [address] [place], [place] Basophils/100 WBC (Bld) 0.3 % Normal 0.0-2.0 [facility] Comment on above: Performed By: #### CAMILLE WEEMS MDIFF #### [address] [address] [place], [place] Eosinophils (Bld) [#/Vol] 0.2 10*3/uL Normal 0.0-0.5 [facility] Comment on above: Performed By: #### CAMILLE WEEMS MDIFF #### [address] [place], [place] Eosinophils/100 WBC (Bld) 3.9 % Normal 1.0-6.0 [facility] Comment on above: Performed By: #### CAMILLE WEEMS MDIFF #### [address] [address] [place], [place] Erythrocyte distribution width (RBC) [Ratio] 29.2 % High 11.5-14.5 [facility] Comment on above: Performed By: #### CAMILLE WEEMS MDIFF #### [address] [place], [place] Granulocytes/100 WBC (Bld) 40.2 % Normal 40.0-80.0 [facility] Comment on above: Performed By: #### CAMILLE WEEMS MDIFF #### [address] [address] [place], [place] Hematocrit (Bld) [Volume fraction] 24.4 % Low 35.0-47.0 [facility] Comment on above: Performed By: #### CAMILLE WEEMS MDIFF #### [address] [place], [place] Hemoglobin (Bld) [Mass/Vol] 7.2 g/dL Low 11.7-16.0 [facility] Comment on above: Performed By: #### CAMILLE WEEMS MDIFF #### [address] [place], [place] Lymphocytes (Bld) [#/Vol] 2.0 10*3/uL Normal 1.0-4.3 [facility] Comment on above: Performed By: #### CAMILLE WEEMS MDIFF #### [address] [place], [place] Lymphocytes/100 WBC (Bld) 47.8 % High 20.0-40.0 [facility] Comment on above: Performed By: #### CAMILLE WEEMS MDIFF #### [address] [place], [place] MCH (RBC) [Entitic mass] 17.9 pg Low 26.0-34.0 [facility] Comment on above: Performed By: #### CAMILLE WEEMS MDIFF #### [address] [place] MCHC 29.7 % Low 32.0-36.0 [facility] Comment on above: Performed By: #### CAMILLE WEEMS MDIFF #### [address] [place] MCV (RBC) [Entitic vol] 60.2 fL Low 79.0-98.0 [facility] Comment on above: Performed By: #### CAMILLE WEEMS MDIFF #### [address] [place], [place] Monocytes (Bld) [#/Vol] 0.3 10*3/uL Normal 0.0-0.8 [facility] Comment on above: Performed By: #### CAMILLE WEEMS MDIFF #### [address] [place], [place] Monocytes/100 WBC (Bld) 7.8 % Normal 2.0-10.0 [facility] Comment on above: Performed By: #### CAMILLE WEEMS MDIFF #### [facility] [address] [place], [place] Platelet mean volume (Bld) [Entitic vol] 8.4 fL Normal 7.4-12.4 [facility] Comment on above: Result Comment: MPV is a calculated measurement using platelet volume ratio. Performed By: #### CAMILLE WEEMS MDIFF #### [address] [place], [place] Platelets (Bld) [#/Vol] 248 10*3/uL Normal 140-440 [facility] Comment on above: Performed By: #### CAMILLE WEEMS MDIFF #### [address] [place], [place] RBC (Bld) [#/Vol] 4.05 10*6/uL Normal 3.80-5.20 [facility] Comment on above: Performed By: #### CAMILLE WEEMS MDIFF #### [address] [place], [place] WBC (Bld) [#/Vol] 4.2 10*3/uL Normal 3.6-10.7 [facility] Comment on above: Performed By: ###CAMILLE MEDINA MDIFF #### [address] [place], [place] Leukodepleted Red Cellson Leukodepleted Red Cells Leukodepleted Red Cells: [id number] transfused 10/25/21 22:59 ERR Unit Blood Type: O Unit Blood Rh: NEG Blood Product Code: LQ1 Unit Number: [id number] Unit Status: transfused Barcoded Unit Number: =[id number] Barcoded Product Code: = Barcoded ABO/Rh: =%9500 Unit Expiration: Unit Volume Transfused: 300 Unit Transfusion Start Date/Time: Normal [facility] Comment on above: Performed By: #### CAMILLE WEEMS MDIFF #### [facility] [address] [place] [address] RBC Morphologyon 10-26-2021 Anisocytosis Ql (Bld) Slight Normal [facility] Comment on above: Performed By: #### CAMILLE WEEMS MDIFF #### [address] [place], [place] Hypochromia Moderate Normal [facility] Comment on above: Performed By: #### CAMILLE WEEMS MDIFF #### [address] [place], [place] Microcytosis Slight Normal [facility] Comment on above: Performed By: #### CAMILLE WEEMS MDIFF #### [address] [place], [place] Ovalocytes Slight Normal [facility] Comment on above: Performed By: #### CAMILLE WEEMS MDIFF #### [address] [place], [place] Poikilocytosis Moderate Normal [facility] Comment on above: Performed By: #### CAMILLE WEEMS MDIFF #### [address] [place], [place] RBC morphology finding Nom (Bld) ABNORMAL Normal [facility] Comment on above: Performed By: #### CAMILLE WEEMS MDIFF #### [address] [place], [place] Tear Drop Forms Slight Normal [facility] Comment on above: Performed By: #### CAMILLE WEEMS MDIFF #### [address] [place], [place] Comp Metabolic Panelon 10-25 Calcium [Mass/Vol] 9.5 mg/dL Normal 8.4-10.4 [facility] Comment on above: Performed By: #### CAMILLE WEEMS MDIFF #### [address] [place], [place] Glucose [Mass/Vol] 88 mg/dL Normal 70-100 [facility] Comment on above: Performed By: #### CAMILLE WEEMS MDIFF #### [facility] [address] [place], [place] ALP [Catalytic activity/Vol] 86 U/L Normal 38-126 [facility] Comment on above: Performed By: #### CAMILLE WEEMS MDIFF #### [facility] [address] [place], [place] ALT [Catalytic activity/Vol] 30 U/L Normal 0-34 [facility] Comment on above: Result Comment: The ALT test is performed by an updated assay method. Please note that the reference intervals have been changed and are now sex specific. Performed By: #### CAMILLE WEEMS MDIFF #### [address] [place], [place] Anion gap [Moles/Vol] 10 mmol/L Normal 3-13 [facility] Comment on above: Performed By: #### CAMILLE WEEMS MDIFF #### [address] [place], [place] AST [Catalytic activity/Vol] 70 U/L High 15-46 [facility] Comment on above: Performed By: #### CAMILLE WEEMS MDIFF #### [facility] [address] [place], [place] Bilirubin [Mass/Vol] 0.5 mg/dL Normal 0.2-1.3 [facility] Comment on above: Performed By: #### CAMILLE WEEMS MDIFF #### [facility] [address] [place], [place] CO2 [Moles/Vol] 23 mmol/L Normal 22-30 [facility] Comment on above: Performed By: #### CAMILLE WEEMS MDIFF #### [facility] [address] [place], [place] Creatinine [Mass/Vol] 0.57 mg/dL Normal 0.52-1.25 [facility] Comment on above: Performed By: #### B CAMILLE SWAIN MDIFF #### [address] [address] [place], [place] eGFR OTHER > 90.0 Normal >60 [facility] Comment on above: Result Comment: KDIG O [...] Performed By: #### CAMILLE WEEMS MDIFF #### [address] [place], [place] GFR/1.73 sq M.predicted among blacks MDRD (S/P/Bld) [Vol rate/Area] mL/min/{1.73_m2} Normal >60 [facility] Comment on above: Performed By: #### CAMILLE WEEMS MDIFF #### [address] [place], [place] Protein [Mass/Vol] 7.6 g/dL Normal 6.3-8.2 [facility] Comment on above: Performed By: #### CAMILLE WEEMS MDIFF #### [address] [address] [place], [place] Urea nitrogen [Mass/Vol] 10 mg/dL Normal 9-20 [facility] Comment on above: Performed By: #### CAMILLE WEEMS MDIFF #### [address] [place], [place] Potassium [Moles/Vol] 3.9 mmol/L Normal 3.5-5.1 [facility] Comment on above: Performed By: #### B CAMILLE SWAIN MDIFF #### [facility] [address] [place], [place] Sodium [Moles/Vol] 139 mmol/L Normal 135-145 [facility] Comment on above: Performed By: #### B CAMILLE SWAIN MDIFF #### [address] [place], [place] Albumin [Mass/Vol] 4.5 g/dL Normal 3.5-5.0 [facility] Comment on above: Performed By: #### CAMILLE WEEMS MDIFF #### [address] [place], [place] Chloride [Moles/Vol] 105 mmol/L Normal 98-107 [facility] Comment on above: Performed By: #### CAMILLE WEEMS MDIFF #### [facility] [address] [place], [place] Drugs of Abuseon 10-25-2021 Amphetamines, Ur Positive Normal [facility] Comment on above: Performed By: #### Jeb OVAG DRGA4, FENTU #### [address] [place], [place] Opiates, Ur Positive Normal [facility] Comment on above: Performed By: #### Jeb OVAG DRGA4, FENTU #### [address] [place], [place] Phencyclidine (PCP), Ur Negative Normal [facility] Comment on above: Result Comment: The expected [...] By: #### C OVAG, DRGA4, FENTU #### [facility] [address] [place], [place] Methadone, Ur Negative Normal [facility] Comment on above: Performed By: #### C OVAG, DRGA4, FENTU #### [facility] [address] [place], [place] Barbiturates, Ur Negative Normal [facility] Comment on above: Performed By: #### C OVAG, DRGA4, FENTU #### [address] [place], [place] Cocaine, Ur Negative Normal [facility] Comment on above: Performed By: #### C OVAG, DRGA4, FENTU #### [address] [place], [place] Benzodiazepines, Ur Negative Normal [facility] Comment on above: Performed By: #### C OVAG, DRGA4, FENTU #### [address] [place], [place] Oxycodone/Oxymorphine, Ur Positive Normal [facility] Comment on above: Performed By: #### C OVAG, DRGA4, FENTU #### [address] [place], [place] Ethanol Serum/Plasmaon 10-25 Ethanol-Serum/Plasma < 0.010 Normal 0.000-0 .01 0 [facility] Comment on above: Result Comment: NOTE : This result is for medical treatment only. Analysis performed using non-forensic procedures. Performed By: #### B CAMILLE SWAIN MDIFF #### [address] [place], [place] Fecal Occult,Stool Single Sp econ 10-25-2021 Fecal Occult,Stool Single Spec Negative Normal Negative [facility] Comment on above: Performed By: #### B MP3Stevenson HEMFARZANA MDIFF #### [address] [place], [place] Fentanyl Screen, Urineon Fentanyl Screen, Urn Negative Normal Negative [facility] Comment on above: Result Comment: Fent anyl has been screened for by Immunoassay at a 1 ng/ml threshold. POSITIVE results are not confirmed by a more specific alternative method unless requested. If confirmation is needed, request confirmation under separate order. NOTE: These results are for medical treatment only. Analysis performed using non-forensic procedures. Performed By: #### C OVAG, DRGA4, FENTU #### [address] [place], [place] Ferritinon 10-25-2021 Ferritin [Mass/Vol] 3 ng/mL Low 6-137 [facility] Comment on above: Performed By: #### B CAMILLE SWAIN MDIFF #### [address] [place], [place] Ferritin [Mass/Vol] 3 ng/mL Low 6-137 [facility] Comment on above: Performed By: #### F EIBC, RTCS, B12, FERR3, FOLT3 #### [address] [place], [place] Folateon 10-25-2021 Folate 12.3 ng/mL Normal [facility] Comment on above: Result Comment: >2.8 Performed By: #### B CAMILLE SWAIN MDIFF #### [address] [place], [place] Folate 13.1 ng/mL Normal [facility] Comment on above: Result Comment: >2.8 Performed By: #### B CAMILLE SWAIN MDIFF #### [address] [place], [place] Hemoglobin AND Hematocriton 10-25-2021 Hematocrit (Bld) [Volume fraction] 22.5 % Low 35.0-47.0 [facility] Comment on above: Performed By: #### H GHCT #### [address] [place], [place] Hemoglobin (Bld) [Mass/Vol] 6.4 g/dL Critically low 11.7-16.0 [facility] Comment on above: Performed By: #### H GHCT #### [address] [place], [place] Hemogram w/ Autodiffon 10-25 Abs Baso Cnt 0.1 10*3/uL Normal 0.0-0.2 [facility] Comment on above: Performed By: #### B CAMILLE SWAIN MDIFF #### [address] [place], [place] Abs Neutrophile Cnt 2.8 10*3/uL Normal 1.8-7.0 [facility] Comment on above: Performed By: #### CAMILLE WEEMS MDIFF #### [address] [place], [place] Basophils/100 WBC (Bld) 1.9 % Normal 0.0-2.0 [facility] Comment on above: Performed By: #### CAMILLE WEEMS MDIFF #### [address] [place], [place] Eosinophils (Bld) [#/Vol] 0.2 10*3/uL Normal 0.0-0.5 [facility] Comment on above: Performed By: #### CAMILLE WEEMS MDIFF #### [address] Eosinophils/100 WBC (Bld) 2.7 % Normal 1.0-6.0 [facility] Comment on above: Performed By: #### CAMILLE WEEMS MDIFF #### [address] [place], [place] Erythrocyte distribution width (RBC) [Ratio] 20.3 % High 11.5-14.5 [facility] Comment on above: Performed By: #### CAMILLE WEEMS MDIFF #### [address] Granulocytes/100 WBC (Bld) 40.5 % Normal 40.0-80.0 [facility] Comment on above: Performed By: #### CAMILLE WEEMS MDIFF #### [facility] [address] [place], [place] Hematocrit (Bld) [Volume fraction] 23.2 % Low 35.0-47.0 [facility] Comment on above: Performed By: #### CAMILLE WEEMS MDIFF #### [address] [place], [place] Hemoglobin (Bld) [Mass/Vol] 6.4 g/dL Critically low 11.7-16.0 [facility] Comment on above: Performed By: #### CAMILLE WEEMS MDIFF #### [address] [place], [place] Lymphocytes (Bld) [#/Vol] 3.2 10*3/uL Normal 1.0-4.3 [facility] Comment on above: Performed By: #### CAMILLE WEEMS MDIFF #### [address] [place], [place] Lymphocytes/100 WBC (Bld) 47.2 % High 20.0-40.0 [facility] Comment on above: Performed By: #### CAMILLE WEEMS MDIFF #### [address] [place], [place] MCH (RBC) [Entitic mass] 14.9 pg Low 26.0-34.0 [facility] Comment on above: Performed By: #### CAMILLE WEEMS MDIFF #### [address] [place] MCHC 27.4 % Low 32.0-36.0 [facility] Comment on above: Performed By: #### CAMILLE WEEMS MDIFF #### [address] [place] MCV (RBC) [Entitic vol] 54.5 fL Low 79.0-98.0 [facility] Comment on above: Performed By: #### CAMILLE WEEMS MDIFF #### [address] [place], [place] Monocytes (Bld) [#/Vol] 0.5 10*3/uL Normal 0.0-0.8 [facility] Comment on above: Performed By: #### CAMILLE WEEMS MDIFF #### [facility] [address] [place], [place] Monocytes/100 WBC (Bld) 7.7 % Normal 2.0-10.0 [facility] Comment on above: Performed By: #### CAMILLE WEEMS MDIFF #### [address] [place], [place] Platelet mean volume (Bld) [Entitic vol] 8.0 fL Normal 7.4-12.4 [facility] Comment on above: Result Comment: MPV is a calculated measurement using platelet volume ratio. Performed By: #### CAMILLE WEEMS MDIFF #### [address] [place], [place] Platelets (Bld) [#/Vol] 302 10*3/uL Normal 140-440 [facility] Comment on above: Performed By: #### CAMILLE WEEMS MDIFF #### [address] [place], [place] RBC (Bld) [#/Vol] 4.25 10*6/uL Normal 3.80-5.20 [facility] Comment on above: Performed By: #### CAMILLE WEEMS MDIFF #### [address] [place] WBC (Bld) [#/Vol] 6.8 10*3/uL Normal 3.6-10.7 [facility] Comment on above: Performed By: #### CAMILLE WEEMS MDIFF #### [address] [address] [place], [place] Iron AND TIBCon 10-25-2021 Saturation 24 % Normal 15-50 [facility] Comment on above: Performed By: #### CAMILLE WEEMS MDIFF #### [address] [place], [place] Total Iron Binding Cap. 399 ug/dL Normal 261-497 [facility] Comment on above: Performed By: #### B CAMILLE SWAIN MDIFF #### [address] [address] [place] [address] Iron, Total 96 ug/dL Normal 37-170 [facility] Comment on above: Performed By: #### B CAMILLE SWAIN MDIFF #### [facility] [address] [place] [address] Saturation 3 % Low 15-50 [facility] Comment on above: Performed By: #### F EIBC, RTCS, B12, FERR3, FOLT3 #### [address] [address] [place] [address] Total Iron Binding Cap. 439 ug/dL Normal 261-497 [facility] Comment on above: Performed By: #### F EIBC, RTCS, B12, FERR3, FOLT3 #### [address] [address] [place] [address] Iron, Total 13 ug/dL Low 37-170 [facility] Comment on above: Performed By: #### F EIBC, RTCS, B12, FERR3, FOLT3 #### [address] [place], [place] Leukodepleted Red Cellson Leukodepleted Red Cells Leukodepleted Red Cells: [id number] transfused 10/25/21 07:50 ERR Unit Blood Type: O Unit Blood Rh: NEG Blood Product Code: CP1 Unit Number: [id number] Unit Status: transfused Barcoded Unit Number: =[id number] Barcoded Product Code: = Barcoded ABO/Rh: =%9500 Unit Expiration: Unit Volume Transfused: 250 Unit Transfusion Start Date/Time: Normal [facility] Comment on above: Performed By: #### B CAMILLE SWAIN MDIFF #### [place] [address] [address] [place], [place] RBC Morphologyon 10-25-2021 Anisocytosis Ql (Bld) Moderate Normal [facility] Comment on above: Performed By: #### B CAMILLE SWAIN MDIFF #### [facility] [address] [place], [place] Hypochromia Slight Normal [facility] Comment on above: Performed By: #### B CAMILLE SWAIN MDIFF #### [facility] [address] [place], [place] Microcytosis Moderate Normal [facility] Comment on above: Performed By: #### B CAMILLE SWAIN MDIFF #### [address] [address] [place], [place] Ovalocytes Slight Normal [facility] Comment on above: Performed By: #### B CAMILLE SWAIN MDIFF #### [address] [address] [place], [place] Poikilocytosis Slight Normal [facility] Comment on above: Performed By: #### B CAMILLE SWAIN MDIFF #### [address] [address] [address] [place], [place] RBC morphology finding Nom (Bld) ABNORMAL Normal [facility] Comment on above: Performed By: #### B CAMILLE SWAIN MDIFF #### [place] [address], [place] Tear Drop Forms Slight Normal [facility] Comment on above: Performed By: #### B CAMILLE SWAIN MDIFF #### [place] [address] [place] [address] Retic Count(%)on 10-25-2021 Retic Count(%) 1.4 Normal [facility] Comment on above: Result Comment: Newb orn < 5% Adults 0.5 - 1.5% Performed By: #### F EIBC, RTCS, B12, FERR3, FOLT3 #### [place] [address] [place] [address] SARS-CoV-2 Antigenon 022 SARS-CoV-2 Antigen Negative Normal Negative [facility] Comment on above: Result Comment: A negative result does not rule out the possibility of SARS-CoV-2 infection. NAAT-based methods should be considered for symptomatic patients presenting greater than seven days after onset of symptoms. Method: Lateral flow immunoassay. Fact sheets for healthcare providers and patients can be found at the following sites: https://www.fda.gov/media/735249/download https://www.fda.gov/media/551822/download Performed By: #### C OVAG, DRGA4, FENTU #### [facility] [address], [place] TS GELon 10-25-2021 TS GEL ABO Group: O Rh, Gel: NEG Antibody Screen Gel: NEG Normal [facility] Comment on above: Performed By: #### CAMILLE WEEMS MDIFF #### [place] [address], [place] Vitamin B12on 10-25-2021 Cobalamin (Vitamin B12) [Mass/Vol] 268 pg/mL Normal 239-931 [facility] Comment on above: Performed By: #### CAMILLE WEEMS MDIFF #### [place] [address] [place], [place] Cobalamin (Vitamin B12) [Mass/Vol] 358 pg/mL Normal 239-931 [facility] Comment on above: Performed By: #### CAMILLE WEEMS MDIFF #### [place] [address] [place], [place] hCG Qual Pregon 10-25-2021 hCG Qual Preg Negative Normal [facility] Comment on above: Result Comment: Refe rence Range: NEGATIVE Effective 06/28/2019, the reference interval for the qualitative test has been updated. This test detects hCG at concentrations of 10 mIU/L or greater in serum. Performed By: #### CAMILLE WEEMS MDIFF #### [place] [address], [place] ED Provider Noteon 2 ED Provider Note [facility] EMERGENCY DEPARTMENT ENCOUNTER Pt Name: Zack Jameson Birthdate 1990 Date of evaluation: 10/24/2021 Provider: Citlali Probinsky, DO CHIEF COMPLAINT Chief Complaint Patient presents [...] Is supposed to get iron infusions at [facility] but has not had one since 2016 due to drug use. Does have history of gastric ulcer. Denies current dark or bloody stools, or GI sx. Suicide attempt in 2018 (took 150 seroquel). Had suicidal thoughts yesterday but denies plan or current SI. States that she and her boyfriend went to [facility] in July, and its been hard because [...] Sexual Activi (more content not included)... Normal [facility] ED Provider Note Emergency Department Encounter [facility] [...] dictations but occasionally words are mis-transcribed.) Preeti Garsia DO [employer] Preeti Garsia DO 10/25/21 0424 Normal [facility] GC/Chlamydia Amp, Uron 01-30 Chlamydia Amplif, Ur Normal [facility] Comment on above: Result Comment: Nega tive for For screening asymptomatic women, a vaginal swab specimen (APTIMA vaginal swab 428836) is optimal. Urine specimens have reduced sensitivity for Chlamydia trachomatis or Neisseria gonorrhoeae infection in female patients without symptoms. This test was developed and its performance characteristics determined by [facility]'s [facility] [place] ([facility]). It has not been cleared or approved by the FDA. [facility] is regulated under CLIA as qualified to perform high complexity testing. This test is used for clinical purposes. It should not be regarded as investigational or for research. Chlamydia For screening asymptomatic women, a vaginal swab specimen (APTIMA vaginal swab 693757) is optimal. Urine specimens have reduced sensitivity for Chlamydia trachomatis or Neisseria gonorrhoeae infection in female patients without symptoms. This test was developed and its performance characteristics determined by [facility] [place] ([facility]). It has not been cleared or approved by the FDA. [facility] is regulated under CLIA as qualified to perform high complexity testing. This test is used for clinical purposes. It should not be regarded as investigational or for research. trachomatis by For screening asymptomatic women, a vaginal swab specimen (APTIMA vaginal swab 423879) is optimal. Urine specimens have reduced sensitivity for Chlamydia trachomatis or Neisseria gonorrhoeae infection in female patients without symptoms. This test was developed and its performance characteristics determined by [facility] [place] ([facility]). It has not been cleared or approved by the FDA. [facility] is regulated under CLIA as qualified to perform high complexity testing. This test is used for clinical purposes. It should not be regarded as investigational or for research. amplification. For screening asymptomatic women, a vaginal swab specimen (APTIMA vaginal swab 680356) is optimal. Urine specimens have reduced sensitivity for Chlamydia trachomatis or Neisseria gonorrhoeae infection in female patients without symptoms. This test was developed and its performance characteristics determined by [facility] [place] ([facility]). It has not been cleared or approved by the FDA. [facility] is regulated under CLIA as qualified to perform high complexity testing. This test is used for clinical purposes. It should not be regarded as investigational or for research. Performed By: #### U GCCT #### [facility] Routine Lab [address] [place], [place] [id number] GC Amplification, Ur NGNEG Normal [facility] Comment on above: Performed By: #### U GCCT #### [facility] Routine Lab [address] [place], [place] [id number] GC/Chlamydia Amp, Uron 09-28 Chlamydia Amplif, Ur Normal [facility] Comment on above: Result Comment: Nega tive for For screening asymptomatic women, a vaginal swab specimen (APTIMA vaginal swab 391691) is optimal. Urine specimens have reduced sensitivity for Chlamydia trachomatis or Neisseria gonorrhoeae infection in female patients without symptoms. This test was developed and its performance characteristics determined by [facility] [place] ([facility]). It has not been cleared or approved by the FDA. RT [facility] is regulated under CLIA as qualified to perform high complexity testing. This test is used for clinical purposes. It should not be regarded as investigational or for research. Chlamydia For screening asymptomatic women, a vaginal swab specimen (APTIMA vaginal swab 997023) is optimal. Urine specimens have reduced sensitivity for Chlamydia trachomatis or Neisseria gonorrhoeae infection in female patients without symptoms. This test was developed and its performance characteristics determined by [facility] [place] ([facility]). It has not been cleared or approved by the FDA. [facility] is regulated under CLIA as qualified to perform high complexity testing. This test is used for clinical purposes. It should not be regarded as investigational or for research. trachomatis by For screening asymptomatic women, a vaginal swab specimen (APTIMA vaginal swab 387949) is optimal. Urine specimens have reduced sensitivity for Chlamydia trachomatis or Neisseria gonorrhoeae infection in female patients without symptoms. This test was developed and its performance characteristics determined by [facility] [place] ([facility]). It has not been cleared or approved by the FDA. [facility] is regulated under CLIA as qualified to perform high complexity testing. This test is used for clinical purposes. It should not be regarded as investigational or for research. amplification. For screening asymptomatic women, a vaginal swab specimen (APTIMA vaginal swab 307271) is optimal. Urine specimens have reduced sensitivity for Chlamydia trachomatis or Neisseria gonorrhoeae infection in female patients without symptoms. This test was developed and its performance characteristics determined by [facility]'s [facility] [place] ( [facility]). It has not been cleared or approved by the FDA. [facility] is regulated under CLIA as qualified to perform high complexity testing. This test is used for clinical purposes. It should not be regarded as investigational or for research. Performed By: #### U GCCT #### [facility] Routine Lab [address] [place], [place] [id number] GC Amplification, Ur NGNEG Normal [facility] Comment on above: Performed By: #### U GCCT #### [facility] Routine Lab [address] [place], [place] [id number] CNOVon 03-27-2018 CNOV Office Visit (AGPLAHWW) ---------ZACK JAMESON Annabel ([id number]) 1990 [facility] Time Provider Siugtfplua75/11/18 12:00 PM RALPH SIERRADARIUS During your visit today, we recorded the following information about you: Weight Height 91.5 kg 1.549 Chasidy Sierra MD 03/27/2018 12:29 PM LorenzoNetofifibrooke Jameson is a 27 year old female [...] satisfaction and Sheagrees to proceed with the operation.Ralph Sierra MDScribe Attestation Statement:Scribe Statement: I, Hien Christy LPN, am scribing for, and in thepresence ofRalph Sierra MD.Scribe: Hien Christy LPNClinician Attestation Statement: The information in this document, created bythe medical front desk coordinator for me, accurately reflects the services I [...] to improve.Follow-up and Disposition History RecordedEncounter Number: [id number] Status:Closed by RALPH SIERRA MD on 03/27/18 [facility] PROGRESSon 03-27-2018 Protein mass conc HNO ID: [id number] thor: Ralph SierraService: (none)Author Type: PhysicianType: Progress NotesFiled: 03/27/2018 12:29 [...] agrees to proceed with the operation.Ralph Sierra [facility] [place] Attestation Statement:Scribe Statement: Hien Carey LPN, am scribing for, and in thepresence Minor Sierra MD.Scribe: Hien Christy LPNClinician Attestation Statement: The information in this document, createdby the medical front desk coordinator for me, accurately reflects the services Ipersonally performed and the decisions made by me. I have reviewed andapproved this document for accuracy.Ralph Sierra MD [facility] CNCOon 11-28-2017 CNCO Letter Text Ralph Sierra MD, [facility] General Plastic [address] [place] [address], [place] [id number]: [phone] Ehmnmf 2017[facility] Insurance Company: [facility] CenterInsured: Zack [facility]y Number: [id number] Number: [id number] Whom It May Concern,I am writing on [...] am confident you will agree that CPT 23849 withdiagnosis codes E65 and L30.4 is indicated and medically necessary for thispatient. This would be done as an outpatient procedure at [facility] TAX ID#: [id number] NPI#[id number]. Please see the enclosedphotographs for further details.If you have any further questions, please feel free to contact my office.Thank you in advance for your immediate attention to this request.Sincerely,Ralph Sierra MDNPI: [id number] NPI: [id number] ID: [id number] [facility] CNOVon 11-14-2017 CNOV Office Visit (AGPLAHWW) ---------ZACK JAMESON ([id number]) 1990 FDate Time Provider Department11/14/17 2:30 PM RALPH SIERRA AGPLAHWW During your visit today, we recorded the following information about you: Weight Height 86.2 kg 1.549 Chasidy Sierra MD 11/14/2017 3:33 PM AddendumZack Jameson is a 27 year old female [...] HTN: NoPAST MEDICAL HISTORYDiagnosis Date- MRSA carrier 2017PA SURGICAL HISTORYProcedure Laterality Date- CHOLECYSTECTOMY 2014- GASTRIC [...] 14, 2017Patient: Zack Jameson : 1990 SSN: [id number] Numbers: [phone] (home)Name of Doctor: Ralph Sierra MDAnesthesia: General Tap Block: NOPatient Status: OutpatientCPT Code(s): 85311Xqabkend: ACHTotal Est. Total Time: 4Diagnosis/ one ICD10 code: (E65) Pannus, abdominal (primary encounterdiagnosis)Procedur e(s): panniculectomyImplants or Special Orders:Case #:Scheduled with/date:Date/Time of Surgery:Arrival Time:Pre-testing Date:Consent Faxed:Packet Mailed:MRSA: Yes, MRSA InfectionSmoking: yesRequired to stop:yesDVT-PE: negative Occurrence:Blood Thinners:[place] of medication(s):Medication Allergies: ALLERGIESNo Known AllergiesPatient Weight: Ht 5' 1 (1.55m)Medical or Cardiac Clearance needed: NOPain Management Contract: NoPreferred Post OP Pain Med: Percocet, NoneConsent Signed: YesInsurance Company: [facility] community plan12/05/17 Loaded precert case with Erum Johnson ref # [id number] date span is12/25/17-03/25/18 nurse to contact me for clinical [place]12/05/17 Faxed clinical with [facility], Dr. Jhon layton, Dr. Yue layton, 2016 PCP notes,emailed photos [place]12/08/17 Approval [facility] auth # [id number] good from 12/25/17-03/25/18 fax received TNClinical person completing sheet: Angela Provider: SELF [200]Allergies As of Date: 11/14/2017(No [...] 14, 2017Patient: Zack Jameson : 1990 SSN: [id number] Numbers: [phone] (home)Name of Doctor: Ralph Sierra MDAnesthesia: General Tap Block: NOPatient Status: OutpatientCPT Code(s): 30974Agaxedao: ACHTotal Est. Total Time: 4Diagnosis/ one ICD10 code: (E65) Pannus, abdominal (primary encounterdiagnosis)Procedur e(s): panniculectomyImplants or Special Orders:Case #:Scheduled with/date:Date/Time of Surgery:Arrival Time:Pre-testing Date:Consent Faxed:Packet Mailed:MRSA: Yes, MRSA InfectionSmoking: yesRequired to stop:yesDVT-PE: negative Occurrence:Blood Thinners:[place] of medication(s):Medication Allergies: ALLERGIESNo Known AllergiesPatient Weight: Ht 5' 1 (1.55m)Medical or Cardiac Clearance needed: NOPain Management Contract: NoPreferred Post OP Pain Med: Percocet, NoneConsent Signed: YesInsurance Company: [facility] community plan12/05/17 Loaded precert case with Erum Johnson ref # [id number] date span is12/25/17-03/25/18 nurse to contact me for clinical [place]12/05/17 Faxed clinical with [facility], Dr. Jhon layton, Dr. Yue layton, 2016 PCPnotes, emailed photos [place]12/08/17 Approval [facility] auth # [id number] good from 12/25/17-03/25/18 faxreceived TNClinical person completing sheet: amandaDisposition: Return if symptoms worsen or fail to improve.Follow-up and Disposition History RecordedEncounter Number: [id number] Status:Closed by RALPH SIERRA MD on 11/14/17 Normal [facility] PROGRESSon 11-14-2017 Protein mass conc HNO ID: [id number] thor: Ralph SierraSerannee: (none)Author Type: PhysicianType: Progress NotesFiled: 11/28/2017 12:53 [...] to proceed with the operation.Ralph Sierra MD [facility] ABORH Captureon 02-23-2017 ABORH Capture Negative Normal [facility] Antibody 3 Cell Scrn Capture on 02-23-2017 Antibody 3 Cell Scrn Capture Negative Normal [facility] CBC With Platelet and Differ entialon 02-23-2017 Anisocytosis presence 2+ Normal [facility] nt [facility] Ovalocytes 1+ Normal [facility] Poikilocytosis 1+ Normal [facility] Basophils Auto #/vol (Bld) 0.05 E9/L Normal 0.00-0.20 [facility] Basophils/100 WBC Auto (Bld) 0.7 % Normal 0.0-2.0 [facility] Eosinophils 0.15 E9/L Normal 0.05-0.50 [facility] Eosinophils/100 leukocytes 2.0 % Normal 0.0-6.0 [facility] Erythrocyte distribution width Auto Ratio (RBC) 20.1 fL High 11.5-15.0 [facility] Erythrocytes (RBC) 4.15 E12/L Normal 3.50-5.50 [facility] Granulocytes/100 WBC (Bld) 0.3 % Normal 0.0-5.0 [facility] Granulocytes/100 WBC (Bld) 0.02 E9/L Normal [facility] Hematocrit (HCT) 29.6 % Low 34.0-48.0 [facility] Hemoglobin mass conc (Bld) 8.9 g/dL Low 11.5-15.5 [facility] Lymphocytes 2.56 E9/L Normal 1.50-4.00 [facility] Lymphocytes/100 leukocytes 33.4 % Normal 20.0-42.0 [facility] MCH 21.4 pg Low 26.0-35.0 [facility] MCHC mass conc (RBC) 30.1 % Low 32.0-34.[address] [facility] MCV 71.3 fL Low 80.0-99.9 [facility] Monocytes 0.57 E9/L Normal 0.10-0.95 [facility] Monocytes/100 leukocytes 7.4 % Normal 2.0-12.0 [facility] Neutrophils 4.32 E9/L Normal 1.80-7.30 [facility] Neutrophils/100 leukocytes 56.2 % Normal 43.0-80.0 [facility] Platelet mean volume (PMV) 10.3 fL Normal 7.0-12.0 [facility] Platelets 379 E9/L Normal 130-450 [facility] WBC (Leukocytes) 7.7 E9/L Normal 4.5-11.5 [facility] Chlamydia GC DNA Amplificati onon 02-23-2017 Chlamydia GC DNA Amplification Chlamydia trachomatis DNA Amplification-: Negative for C. Trachomatis rRNAResults should be interpreted in conjunction with otherlaboratory and clinical data available to the clinician.Neisseria gonorrhoeae DNA Amplification-: Negative for N. gonorrhoeae rRNAResults should be interpreted in conjunction with otherlaboratory and clinical data available to the clinician. Normal [facility] Comprehensive Metabolic Pane stephen 02-23-2017 Alanine aminotransferase (ALT) 14 U/L Normal 0-32 [facility] Albumin 4.3 g/dL Normal 3.5-5.2 [facility] Alkaline phosphatase (ALP) 63 U/L Normal 35-104 [facility] Anion gap 12 mmol/L Normal 7-16 [facility] Aspartate aminotransferase (AST) 21 U/L Normal 0-31 [facility] Bilirubin (total) 0.3 mg/dL Normal 0.0-1.2 [facility] Calcium 9.6 mg/dL Normal 8.6-10.2 [facility] Chloride 102 mmol/L Normal 98-107 [facility] CO2 26 mmol/L Normal 22-29 [facility] Creatinine 0.5 mg/dL Normal 0.5-1.0 [facility] eGFR (black) mL/min/{1.73_m2} Normal [facility] eGFR (non-black) mL/min/{1.73_m2} Normal >=60 [facility] Comment on above: Result Comment: [employer] shanika Kidney Disease: less than 60 ml/min/1.73 sq.m. Kidney Failure: less than 15 ml/min/1.73 sq.m.Results valid for patients 18 years and older. Glucose mass conc 161 mg/dL High 74-109 [facility] Potassium molar conc 4.0 mmol/L Normal 3.5-5.0 [facility] Protein 7.1 g/dL Normal 6.4-8.3 [facility] Sodium 140 mmol/L Normal 132-146 [facility] Urea nitrogen 8 mg/dL Normal 6-20 [facility] Culture, Urineon 02-23-2017 Culture, Urine Culture, Urine-: Growth not present Normal [facility] ED Noteon 02-23-2017 HIM IP Note OR Agricultural Chemical[employer] Inspector Normal [facility] HIM IP Note OR Agricultural Chemical[employer] Inspector Normal [facility] HIM IP Note OR Agricultural Chemicals Inspector Normal [facility] ED Provider Noteon 7 HIM IP Note OR [employer] Chemical[employer] Inspector Normal [facility] HCG Quanton 02-23-2017 HCG Quant 67006.0 mIU/mL High <10 [facility] Comment on above: Result Comment: The TOTAL HCG QUANT test is not intended for anyuse other than assessment of status. Rh Immune Globulinon 017 Rh Immune Globulin RhImmuneGlobulin RVP [id number] issued 1 vial 02/23/17 20:01 Normal [facility] US OB TRANSVAGINALon 017 US OB TRANSVAGINAL Patient 8DOB: 1990Age: 26 yearsGender: [...] by:EMY Parksigned by:Heide Leonard MD02/23/17Final result Normal [facility] Urinalysis, reflex to micros copicon 02-23-2017 Bilirubin Ql (U) Negative Normal Negative [facility] Urine, clarity Clear Normal Clear [facility] Urine, color Yellow Normal Straw/[facility] ow [facility] Urine, glucose presence Negative Normal Negative [facility] Urine, hemoglobin presence SMALL Abnormal Negative [facility] Urine, ketones presence Negative Normal Negative [facility] Urine, leukocyte esterase presence Negative Normal Negative [facility] Urine, nitrite presence Negative Normal Negative [facility] Urine, pH 7.0 [pH] Normal 5.0-9.0 [facility] Urine, protein presence Negative Normal Negative [facility] Urine, specific gravity 1.010 Normal 1.005-1.03 0 [facility] Urine, urobilinogen 0.2 {Chilo'U}/dL Normal < 2.0 [facility] Urine Microscopicon 02-24-20 17 Urine, bacteria in sediment NONE Normal [facility] Urine, epithelial cells presence in sediment FEW Normal [facility] Urine, erythrocytes NONE Normal 0-2 [facility] Urine, leukocytes NONE Normal 0-5 [facility] Wet Prep-Medical Purposes On mathur 02-23-2017 Wet Prep Clue Cells None Seen Normal [facility] Wet Prep Source VAGINAL Normal [facility] Wet Prep Trichomonas None Seen Normal [facility] Wet Prep Yeast None Seen Normal [facility] Vital Signs Date Time Vital Sign Value Performing Clinician Britta garibay 11-01-2024 09:24-0400 Body height 152.4 cm Falguni Shanks HOSPICE REGISTERED NURSE-C Work Phone: [facility] 11-01-2024 09:24-0400 Body mass index (BMI) [Ratio] 40 kg/m2 Falguni Shanks HOSPICE REGISTERED NURSE-C Work Phone: [facility] 11-01-2024 09:24-0400 Body temperature 97.6 [degF] Falguni Shanks HOSPICE REGISTERED NURSE-C Work Phone: [facility] 11-01-2024 09:24-0400 Body weight 92.98 kg Falguni Shanks HOSPICE REGISTERED NURSE-C Work Phone: [facility] 11-01-2024 09:24-0400 Diastolic blood pressure 68 mm[Hg] Falguni Shanks HOSPICE REGISTERED NURSE-C Work Phone: [facility] 11-01-2024 09:24-0400 Heart rate 73 /min Falguni Shanks HOSPICE REGISTERED NURSE-C Work Phone: [facility] 11-01-2024 09:24-0400 Respiratory rate 20 /min Falguni Shanks HOSPICE REGISTERED NURSE-C Work Phone: [facility] 11-01-2024 09:24-0400 SaO2% (BldA) [Mass fraction] 96 % Falguni Garciaaniceto HOSPICE REGISTERED NURSE-C Work Phone: [facility] 11-01-2024 09:24-0400 Systolic blood pressure 103 mm[Hg] Falguni Shanks HOSPICE REGISTERED NURSE-C Work Phone: [facility] 05-23-2024 12:03-0500 Body height 152.4 cm Gabi DELEON Work Phone: [facility] 05-23-2024 12:03-0500 Body mass index (BMI) [Ratio] 43.75 kg/m2 Gabi DELEON Work Phone: [facility] 05-23-2024 12:03-0500 Body weight 101.61 kg Gabi DELEON Work Phone: [facility] 05-23-2024 12:03-0500 Diastolic blood pressure 77 mm[Hg] Gabi DELEON Work Phone: [facility] 05-23-2024 12:03-0500 Heart rate 71 /min Gabi DELEON Work Phone: [facility] 05-23-2024 12:03-0500 SaO2% (BldA) [Mass fraction] 97 % Gabi DELEON Work Phone: [facility] 05-23-2024 12:03-0500 Systolic blood pressure 122 mm[Hg] Gabi DELEON Work Phone: [facility] 07-25-2023 09:03-0400 Body height 152.4 cm [facility] [address] 07-25-2023 09:03-0400 Body mass index (BMI) [Ratio] 42.85 kg/m2 [facility] [address] 07-25-2023 09:03-0400 Body weight 99.52 kg [facility] [address] 07-25-2023 09:03-0400 Diastolic blood pressure 57 mm[Hg] [facility] [address] 07-25-2023 09:03-0400 Heart rate 85 /min [facility] [address] 07-25-2023 09:03-0400 Respiratory rate 14 /min [facility] [address] 07-25-2023 09:03-0400 SaO2% (BldA) [Mass fraction] 97 % [facility] [address] 07-25-2023 09:03-0400 Systolic blood pressure 127 mm[Hg] [facility] [address] 05-18-2023 13:31-0500 Body height 154.9 cm P. Arlene DO Work Phone: [facility] 05-18-2023 13:31-0500 Body mass index (BMI) [Ratio] 41.42 kg/m2 P. Arlene DO Work Phone: [facility] 05-18-2023 13:31-0500 Body temperature 97.7 [degF] P. Arlene DO Work Phone: [facility] 05-18-2023 13:31-0500 Body weight 99.43 kg P. Arlene DO Work Phone: [facility] 05-18-2023 13:31-0500 Diastolic blood pressure 83 mm[Hg] P. Arlene DO Work Phone: [facility] [employer] [facility] 05-18-2023 13:31-0500 Heart rate 66 /min P. Arlene DO Work Phone: [facility] [employer] [facility] 05-18-2023 13:31-0500 SaO2% (BldA) [Mass fraction] 99 % P. Arlene DO Work Phone: [facility] 05-18-2023 13:31-0500 Systolic blood pressure 116 mm[Hg] Lan Jacobs DO Work Phone: [facility] 02-09-2023 14:28-0400 Body height 152.4 cm [facility] 02-09-2023 14:28-0400 Body mass index (BMI) [Ratio] 42.3 kg/m2 [facility] 02-09-2023 14:28-0400 Body temperature 96.6 [degF] [facility] 02-09-2023 14:28-0400 Body weight 98.42 kg [facility] 02-09-2023 14:28-0400 Diastolic blood pressure 75 mm[Hg] [facility] 02-09-2023 14:28-0400 Heart rate 89 /min [facility] 02-09-2023 14:28-0400 Respiratory rate 18 /min [facility] 02-09-2023 14:28-0400 SaO2% (BldA) [Mass fraction] 98 % [facility] 02-09-2023 14:28-0400 Systolic blood pressure 121 mm[Hg] [facility] 01-16-2023 14:35-0400 Body temperature 98.2 [degF] PHYSICIAN NO [facility] 01-16-2023 14:35-0400 Diastolic blood pressure 83 mm[Hg] PHYSICIAN NO [facility] 01-16-2023 14:35-0400 Heart rate 67 /min PHYSICIAN NO [facility] 01-16-2023 14:35-0400 Respiratory rate 16 /min PHYSICIAN NO [facility] 01-16-2023 14:35-0400 SaO2% (BldA) [Mass fraction] 99 % PHYSICIAN NO [facility] 01-16-2023 14:35-0400 Systolic blood pressure 140 mm[Hg] PHYSICIAN NO [facility] 01-16-2023 09:00-0400 Body weight 94.34 kg PHYSICIAN NO [facility] 01-13-2023 19:30-0400 Body height 152.4 cm PHYSICIAN LOBITO [facility] 10-31-2022 15:45-0400 Reason For Taking VItal Signs AIDA MENAOLIVIER WALTER [facility] 10-31-2022 15:27-0400 Blood Pressure Cuff Size AIDA MALONE DO [facility] 10-31-2022 15:27-0400 Blood Pressure Location AIDA MENAOLIVIER WALTER [facility] 10-31-2022 15:27-0400 Blood Pressure Method AIDA MENA Arisoko [facility] 10-31-2022 15:27-0400 Body temperature 98.6 [degF] AIDA MENA DO [facility] 10-31-2022 15:27-0400 Diastolic Blood Pressure Non-Invasive 55 1 AIDA MENAOLIVIER WALTER [facility] 10-31-2022 15:27-0400 Heart rate 80 /min AIDA MENA WALTER [facility] 10-31-2022 15:27-0400 Mean blood pressure 72 mm[Hg] AIDA MENA [facility] 10-31-2022 15:27-0400 Respiratory rate 16 /min AIDA MENA WALTER [facility] 10-31-2022 15:27-0400 Systolic Blood Pressure Non-Invasive 125 1 AIDA MENA DO [facility] 10-31-2022 13:06-0400 Body temperature 97.34 [degF] AIDA MENA DO [address] [place] [address] 10-31-2022 13:06-0400 Diastolic Blood Pressure Non-Invasive 78 1 AIDA MALONE DO [address] [place] [address] 10-31-2022 13:06-0400 Heart rate 64 /min AIDA MENAOLIVIER WALTER [facility] 10-31-2022 13:06-0400 Mean blood pressure 87 mm[Hg] AIDA MALONE DO [facility] 10-31-2022 13:06-0400 Respiratory rate 16 /min AIDA MALONE DO [facility] 10-31-2022 13:06-0400 Systolic Blood Pressure Non-Invasive 103 1 AIDA MALONE DO [address] [place] [address] 10-31-2022 12:51-0400 Diastolic Blood Pressure Non-Invasive 52 1 AIDA MALONE DO [address] [place] [address] 10-31-2022 12:51-0400 Heart rate 72 /min AIDA MALONE DO [address] [place] [address] 10-31-2022 12:51-0400 Mean blood pressure 66 mm[Hg] AIDA MALONE DO [address] [place] [address] 10-31-2022 12:51-0400 Respiratory rate 16 /min AIDA MALONE DO [address] [place] [address] 10-31-2022 12:51-0400 Systolic Blood Pressure Non-Invasive 97 1 AIDA MALONE DO [address] [place] [address] 10-31-2022 12:36-0400 Body temperature 97.34 [degF] AIDA MALONE DO [address] [place] [address] 10-31-2022 12:30-0400 Respiratory Rate - Anes 17 br/min AIDA MALONE DO [facility] 10-31-2022 12:25-0400 Respiratory Rate - Anes 10 br/min AIDA ALVAREZERALFIE WALTER [address] [place] [address] 10-31-2022 12:20-0400 Body temperature 96.84 [degF] AIDA ALVAREZERLY DO [address] [place] [address] 10-31-2022 12:20-0400 Respiratory Rate - Anes 10 br/min AIDA MALONE DO [address] [place] [address] 10-31-2022 11:20-0400 Heart rate 76 /min AIDA MALONE DO [facility] 10-31-2022 10:46-0400 Body temperature 98.06 [degF] AIDA SHARPLY DO [facility] 10-31-2022 10:46-0400 Heart rate 83 /min AIDA MALONE DO [address] [place] [address] 10-31-2022 07:10-0400 Body temperature 98.06 [degF] AIDA SHARPLY DO [address] [place] [address] 10-31-2022 07:10-0400 Heart rate 89 /min AIDA MALONE DO [facility] 10-31-2022 05:20-0400 Signs/Symptoms Transfusion Reaction AIDA MALONE DO [facility] 10-31-2022 04:22-0400 Body height 152.4 cm AIDA SHARPLY [address] [place] [address] 10-31-2022 04:22-0400 Body weight 100.2 kg AIDA SHARPLY [address] [place] [address] 10-31-2022 04:22-0400 Body weight 43.14 kg/m2 AIDA SHARPLY [facility] 10-31-2022 04:20-0400 Signs/Symptoms Transfusion Reaction AIDA MENA [address] [facility] Encounters Encounter Date Encounter Type Care Provider Facility Start: 11-14-2024 Encounter for other preprocedural examination Falguni Shanks [facility] Start: 11-14-2024 ambulatory Jersey Zendejas [facility] Start: 11-01-2024 End: 11-01-[address] Jersey Zendejas MD [facility] Work Phone: Start: 11-01-2024 End: 11-01-2024 ambulatory Falguni Shanks HOSPICE REGISTERED NURSE-C Work Phone: [facility] Start: 09-19-2024 End: 09-19-2024 Office outpatient visit 10 minutes [facility] Comment on above: Excess skin of abdom en (Primary Dx); S/P gastric bypass Start: 09-19-2024 ambulatory Lan JACOBS Lelia ity:[facility] Start: 08-27-2024 End: 08-27-2024 ambulatory Falguni Shanks HOSPICE REGISTERED NURSE-C Work Phone: [facility] Work Phone: Start: 08-27-2024 End: 08-27-2024 Patient encounter procedure Falguni Shanks HOSPICE REGISTERED NURSE-C -[facility] Start: 08-27-2024 End: 08-27-2024 ambulatory Falguni Shanks Facility:[facility] Start: 06-26-2024 End: 06-26-2024 ambulatory PREETI AVINA [facility] Start: 05-23-2024 End: 05-23-2024 Office outpatient new 45 minutes Gabi DELEON Work Phone: [facility] Comment on above: Excess skin of abdom en (Primary Dx) Start: 05-23-2024 ambulatory GABI johnsonty:[facility] Start: 05-10-2024 End: 05-10-2024 ambulatory NAYE BLUNT [facility] Start: 05-10-2024 Encounter for gynecological examination (general) (routine) without abnormal findings MELANIE MOON [facility] Start: 12-19-2023 End: 12-19-2023 ambulatory NAYE BLUNT [facility] Start: 12-08-2023 End: 12-08-2023 Emergency department patient visit SHAINA ADLER [facility] Start: 11-01-2023 End: 11-16-2023 ambulatory KEELY Gamino YAIR [facility] Start: 10-25-2023 End: 11-16-2023 ambulatory KEELY BROUSSARD [facility] Start: 10-05-2023 End: 10-16-2023 ambulatory KEELY BROUSSARD [facility] Start: 09-20-2023 End: 09-20-2023 ambulatory AIME ROSE [facility] Start: 08-22-2023 End: 08-26-2023 Evaluation and management of inpatient GABI MALDONADO [facility] Start: 08-21-2023 End: 08-22-2023 Emergency department patient visit GABRIEL CLAROS [facility] Start: 07-25-2023 End: 07-25-2023 Office outpatient new 30 minutes [facility] [address] [place] [address] [facility] Comment on above: Excess skin of abdom en (Primary Dx); Depression, unspecified depression type Start: 05-18-2023 ambulatory [facility] Start: 05-18-2023 End: 05-18-2023 Office outpatient visit 25 minutes [facility] Work Phone: [facility] Comment on above: Stimulant use disord er (Primary Dx); Depression, unspecified depression type; Gastroesophageal reflux disease, unspecified whether esophagitis present Start: 04-22-2023 End: 04-23-2023 Emergency department patient visit PHYSICIAN [facility] Start: 04-20-2023 ambulatory [facility] Start: 03-21-2023 ambulatory [facility] Start: 02-21-2023 ambulatory [facility] Start: 02-09-2023 End: 02-09-2023 Emergency department patient visit [facility] Work Phone: Start: 01-13-2023 End: 01-16-2023 Evaluation and management of inpatient Mirza Duff Facility:[facility] Start: 01-13-2023 End: 01-16-2023 Evaluation and management of inpatient PHYSICIAN LOBITO [facility] Work Phone: Start: 01-13-2023 ambulatory Mirza Colunga acility:[facility] Start: 11-28-2022 End: 11-29-2022 ambulatory [facility] Start: 11-25-2022 End: 11-26-2022 ambulatory [facility] Start: 11-24-2022 End: 11-25-2022 ambulatory [facility] Start: 10-31-2022 End: 10-31-2022 Evaluation and management of inpatient DIMPLE TAVERAS MD Facility:[facility] Start: 10-31-2022 End: 10-31-2022 Evaluation and management of inpatient AIDA MALONE [facility] Start: 02-14-2022 ambulatory Nancy De Souza [facility] Start: 10-25-2021 End: 11-01-2021 Evaluation and management of inpatient GABRIEL MILES [facility] Start: 12-08-2020 End: 12-08-2020 Emergency department patient visit LINCOLN IVEY Work Phone: [facility] Start: 09-25-2018 Patient encounter procedure RALPH SIERRA Facility:[facility] Start: 03-27-2018 End: 03-27-2018 Patient encounter procedure RALPH SIERRA Facility:[facility] Start: 03-26-2018 End: 03-26-2018 Patient encounter procedure MARYCARMEN ENCINAS([facility] Start: 11-14-2017 End: 11-14-2017 Patient encounter procedure RALPH SIERRA Facility:[facility] Start: 11-08-2017 End: 11-08-2017 Patient encounter procedure CORA MONTANEZ [facility] Start: 02-23-2017 End: 02-23-2017 Emergency department patient visit CARRINGTON IRELAND Facility:[facility] Procedures Date Procedure Procedure Detail Performing Clinician Start: 08-27-2024 Total iron binding capacity measurement Falguni ANDRADE Work Phone: Start: 05-23-2024 Follow-up visit Follow-up GABI MCLEOD Start: 02-09-2023 X-ray of cervical spine Plan of Treatment Date Care Activity Detail Author Start: 12-16-2024 Influenza vaccination INFLUENZA VACCINE (#1) [facility] Start: 09-19-2024 End: 09-19-2024 Patient encounter procedure 09/19/2024 10:30 AM EDT Office Visit [facility] [address] [place] [address] [facility] Start: 01-01-2024 End: 01-01-2024 Patient encounter procedure 01/01/2024 9:20 AM EDT Office Visit [facility] [address] [place] [address] Shivani Rangel MD [address] [place] [address] [facility] Start: 12-17-2023 COVID-19 VACCINE ( season) COVID-19 VACCINE ( season) [facility] Start: 12-17-2023 Influenza vaccination [facility] Start: 02-09-2023 [facility] Start: 01-16-2023 [facility] Start: 01-13-2023 Referral to Physician/Allergy/Immunology [facility] Start: 01-13-2023 Hospital admission [facility] Start: 01-13-2023 [facility] Start: 12-16-2022 COVID-19 VACCINE ( season) COVID-19 VACCINE ( season) [facility] Start: 12-16-2022 Influenza vaccination INFLUENZA VACCINE (#1) [facility] Start: 2010 Screening for malignant neoplasm of cervix CERVICAL CANCER SCREENING DISCUSSION [facility] Start: 2008 Hepatitis B vaccination HEP B VACCINE (1 of 3 - 19+ 3-dose series) [facility] Start: 2008 Third diphtheria, tetanus and acellular pertussis (DTaP) vaccination TDAP (ADULT) [facility] Start: 2004 HIV screening HIV SCREENING DISCUSSION [facility] Start: 09-08-1995 PNEUMOCOCCAL VACCINE SERIES (1 of 2 - PCV) PNEUMOCOCCAL VACCINE SERIES (1 of 2 - PCV) [facility] Start: 03-10-1990 COVID-19 VACCINE (#1) COVID-19 VACCINE (#1) [facility] Start: 1989 Hepatitis B vaccination HEP B VACCINE (1 of 3 - 3-dose series) [facility] Start: 1989 Hepatitis C screening HEPATITIS C VIRUS SCREENING [facility] Start: 1989 Tetanus vaccination TETANUS [facility] Choriogonadotropin ( test) [Presence] in Urine POCT URINE Point of Care Testing Routine Stimulant use disorder 05/18/2023 1:35 PM [facility] Patient Education [facility] Work Phone: Patient referral Michael Lo [facility] Work Phone: POCT ALERE DRUG SCREEN POCT ALER E DRUG SCREEN Point of Care Testing Routine Stimulant use disorder 05/18/2023 1:35 PM [facility] Payers Date Payer Category Payer Medicaid (Managed Care) [facility] [id number] 2023 Self-pay [id number] 2022 Medicaid [id number] 2005 Unknown [id number] 1989 Unknown [id number] 2.16.840.1.926521.3.579.2. 278 1989 Unknown [id number] 2.16.840.1.125140.3.579.2. 278 1989 Unknown [id number] 2.16.840.1.064200.3.579.2. 278 1989 Unknown [id number] 2.16.840.1.014289.3.579.2. 297 1989 Unknown [id number] 2.16.840.1.354622.3.579.2. 297 1989 Unknown [id number] 2.16.840.1.620926.3.579.2. 668 1989 Unknown [id number] 2.16.840.1.467722.3.579.2. 668 1989 Unknown [id number] 2.16.840.1.641304.3.579.2. 173 1989 Unknown [id number] 2.16.840.1.831685.3.579.2. 173 1989 Unknown [id number] 2.16.840.1.575063.3.579.2. 173 1989 Unknown [id number] 2.16.840.1.584897.3.579.2. 627 1989 Unknown [id number] 2.16.840.1.292482.3.579.2. 903 1989 Unknown [id number] 2.16.840.1.576074.3.579.2. 983 1989 Unknown [id number] 2.16.840.1.782609.3.579.2. 983 1989 Unknown [id number] 2.16.840.1.530017.3.579.2. 983 1989 Unknown [id number] 2.16.840.1.207130.3.579.2. 983 1989 Unknown [id number] 2.16.840.1.688417.3.579.2. 983 1989 Unknown [id number] 2.16.840.1.655536.3.579.2. 172 1989 Unknown [id number] 2.16.840.1.801415.3.579.2. 176 1989 Unknown [id number] 2.16.840.1.841419.3.579.2. 6 1989 Unknown [id number] 2.16.840.1.800549.3.579.2. 1285 1989 Unknown [id number] 2.16.840.1.622470.3.579.2. 6 1989 Unknown [id number] 2.16.840.1.771996.3.579.2. 1285 1989 Unknown [id number] 2.16.840.1.233331.3.579.2. 1285 1989 Unknown [id number] 2.16.840.1.985087.3.579.2. 1285 1989 Unknown [id number] 2.16.840.1.222583.3.579.2. 1286 1989 Unknown [id number] 2.16.840.1.479967.3.579.2. 651 1989 Unknown [id number] 2.16.840.1.773373.3.579.2. 651 1989 Unknown [id number] 2.16.840.1.726691.3.579.2. 651 1989 Unknown [id number] 2.16.840.1.659747.3.579.2. 651 1989 Unknown [id number] 2.16.840.1.700291.3.579.2. 594 1989 Unknown [id number] 2.16.840.1.232348.3.579.2. 594 Medicaid [id number] Private Health Insurance Unknown [facility] [id number] Unknown Unknown [id number] 2.16.840.1.028353.3.579.2. 531 Unknown [id number] 2.16.840.1.937320.3.579.2. 531 Unknown [id number] 2.16.840.1.669072.3.579.2. 462 Unknown [id number] 2.16.840.1.265255.3.579.2. 462 Unknown [id number] 2.16.840.1.385274.3.579.2. 462 Social History Date Type Detail Facility Start: 12-08-2020 Tobacco smoking stat us LAIS Never smoked tobacco (finding) [facility] [employer] Work Phone: Start: 12-08-2020 Unknown [facility] [employer] Work Phone: Start: 12-08-2020 No [facility] [employer] Work Phone: Start: 1990 Sex Assigned At Female A [facility] Start: 01-14-2023 [facility] Start: 02-09-2023 Tobacco [facility] if ever smoked [facility] Start: 12-19-2018 With Family [facility] Start: 02-09-2023 End: 05-18-2023 Tobacco smoking status NHIS Smokes tobacco daily [employer] [facility] History of tobacco use Cigarette Smoker A [facility] Start: 05-18-2023 End: 05-23-2024 Cigarettes smoked current (pack per day) - Reported 0.3 [facility] Start: 05-18-2023 End: 05-23-2024 Alcohol intake [facility] (finding[facility] Start: 05-18-2023 End: 05-23-2024 Tobacco use [facility] Start: 02-28-2017 Alcohol Comment 1 per month [facility] Start: 1989 Sex Assigned At Not on file A [employer] Start: 02-28-2017 Gender identity Identifies as female gender (finding) [facility] Start: 05-23-2024 End: 11-01-2024 Tobacco smoking status NHIS Ex-smoker [facility] Start: 02-28-2017 Sex Female (finding) [facility] Medical Equipment Procedure Code Equipment Code Equipment Origin al Text Equipment Identifier Dates Nexplanon 68mg [id number] Start: 03-01-2017 Goals Date Patient Goal Desired Activity /State Functional Status Date Assessment Result Facility 01-16-2023 Functional status Patient at Baseline [facility] Work Phone: 10-31-2022 Functional Status None [facility] 10-31-2022 Functional Status Dinner Percent 100 [facility] 10-31-2022 Functional Status Room check performed [facility] 10-31-2022 Functional Status [facility] 10-31-2022 Functional Status [facility] 10-31-2022 Functional Status Hospital bed [facility] 03-01-2017 Are you deaf, or do you have serious difficulty hearing No 03/01/2017 3:09 AM Stephanie Yepez, JAYLON No [facility] 03-01-2017 Are you blind, or do you have serious difficulty seeing, even when wearing glasses No 03/01/2017 3:09 AM Stephanie Yepez, JAYLON No [facility] 03-01-2017 Do you have serious difficulty walking or climbing stairs No 03/01/2017 3:09 AM Stephanie Yepez, JAYLON No [facility] 03-01-2017 Do you have difficul ty dressing or bathing No 03/01/2017 3:09 AM Stephanie Yepez, JAYLON No [facility] 03-01-2017 Because of a physica l, mental, or emotional condition, do you have difficulty doing errands alone such as visiting a physician's office or shopping No 03/01/2017 3:09 AM Stephanie Yepez, RN No [facility] Mental Status Date Assessment Result Facility 01-16-2023 Cognitive function Cognitive Sta tus Patient at Baseline [facility] Work Phone: 10-31-2022 Mental Status Oriented x 4 [facility] 10-31-2022 Mental Status [facility] 10-31-2022 Mental Status [facility] 03-01-2017 Because of a physica l, mental, or emotional condition, do you have serious difficulty concentrating, remembering, or making decisions No 03/01/2017 3:09 AM Stephanie Yepez, JAYLON No [facility] Clinical Notes 10-27-2021 to 09-19-2024 Bianca Elder [...] Allergies reviewed with pt. Pictures taken using [employer] yocasta and uploaded in media tab in IHIS. Zack Jameson verbally agreed to have pictures taken for documentation of continuity of medical care. ,Chief Complaint: Chief Complaint Patient presents with Pre-operative Consultation MOHEGAN: Ms. Jameson is a 34 y.o. female [...] then see me. documented in this encounter [facility] 09-19-2024 Instructions Katharine Romano RN - 09/19/2024 10:30 AM EDT Call to schedule appointment when BMI target is met. On behalf of the [facility] staff, it was a pleasure [...] address provided is the address here at [facility]. We look forward to seeing you again in the future. [facility] [address] [address] documented in this encounter [facility] 05-23-2024 History of Presen t illness Narrative Patient arrived via ambulatory. Accompanied by self. Pt here to see Plastic EVENT PLANNING INTERN-PRACTICE PERFORMANCE MANAGER Team for new patient evaluation. Patient was knowledgeable of all their medications, and medication list was reconciled in IHIS.. Allergies reviewed with pt. Pictures taken using [employer] yocasta and uploaded in media tab in IHIS. Zack Jameson verbally agreed to have pictures taken for documentation of continuity of medical care. Chief Complaint: Chief Complaint Patient presents with New Patient Follow-up See about a year ago MOHEGAN: Ms. Jameson is a 33 y.o. female [...] Patient Follow-up See about a year ago MOHEGAN: Ms. Jameson is a 33 y.o. female [...] by us today in presence of a behavior management specialist. Pertaining to the excess skin: The patient [...] exception of those things noted in the MOHEGAN above. Past Medical History: No past medical history on file. Past Surgical History: Past Surgical History: Procedure Laterality Date TREATMENT INDUCED W/ DILATION & EVACUATION N/A 03/01/2017 Laterality: N/A; Surgeon: Kiya Escoto MD; Location: [facility] MAIN OR GASTRIC BYPASS 2014 CHOLECYSTECTOMY 2014 [...] Insecurity: No Food Insecurity (08/22/2023) Received from [facility] Hunger Vital Sign Worried About Running Out of Food in the Last Year: Never true Ran Out of Food in the Last Year: Never true Transportation Needs: No Transportation Needs (08/22/2023) Received from [facility] PRAPARE - Transportation Lack of Transportation [...] for surgical candidacy. documented in this encounter [facility] 05-23-2024 Instructions Yuliet Corea RN - 05/23/2024 11:20 AM EST Try to lose about 30 more pounds to be re-evaluated. On behalf of the [facility] staff, it was a pleasure [...] address provided is the address here at [facility]. We look forward to seeing you again in the future. [facility] [address] [place] [phone] documented in this encounter [facility] 05-12-2024 Note . MICRO - Microbiology PROCEDURE: [...] Locations *1: This test was performed at: [facility], [address] [place] [address], [id number] , [facility] 07-25-2023 History of Presen t illness Narrative Patient arrived via Ambulatory. Accompanied by self. Pt here to see plastic surgery for new patient evaluation for abdominal body contouring surgery. Medications and allergies reviewed. Pictures taken using [employer] yocasta and uploaded in media tab in [employer]. Zack Jameson verbally agreed to have pictures taken for documentation of continuity of medical care. [facility]Y for [facility] (bariatric treatment center) to obtain records from 2015 gastric bypass surgery. Chief Complaint: Chief Complaint Patient presents with New Patient Body contouring of abdomen MOHEGAN: Ms. Jameson is a 32 y.o. female [...] above symptoms for 24 months. Call to [facility] [place] to obtain records of Bariatric Surgery from [...] massive weight loss. Underwent gastric bypass in 2014, highest weight 400lbs. I believe they would [...] surgical candidacy. I spent 30-45 minutes in endt-og-wtgp time with this patient, over half of this time was spent in discussing surgical options, patient education, and coordination of care. Nadiya Barrios, DANG HISTORY OF PRESENT ILLNESS Zack Jameson is a 32 y.o. female who presents for evaluation of excess skin and soft tissue. This patient was evaluated today in presence of a behavior management specialist. The patient underwent Gastric Bypass Surgery in [...] Laterality: N/A; Surgeon: Kiya Escoto MD; Location: [facility] MAIN OR GASTRIC BYPASS 2014 CHOLECYSTECTOMY 2014 [...] Back: spine midline documented in this encounter [facility] 07-25-2023 Instructions Katharine Romano RN - 07/25/2023 8:00 AM EDT Follow Up: Referral has been placed for an [facility] Plastic Surgeon, Dr. Rangel, who specializes in full body contouring. You will be contacted to schedule. If you do not hear from their office in 2 weeks, call [facility] Plastic Surgery to schedule. See phone number below. [facility] [address] [phone] On behalf of the [facility] staff, it was a pleasure [...] address provided is the address here at [facility]. We look forward to seeing you again in the future. documented in this encounter [facility] 05-18-2023 History of Presen t illness Narrative [...] unknown to me: No Counselor- yes - JorgeShani Ayesha Labs: Reviewed Yes POCT ALERE DRUG SCREEN Order: [id number] Status: In process Visible to patient: No [...] Dad age 61 at home alone in [place], 3 sibs, celebration of life done Current medications: Current Outpatient Medications: lamoTRIgine 25 MG tablet, Take 1 tablet by mouth at bedtime., Disp: 28 tablet, Rfl: 0 Pantoprazole [address] tablet DR, Take 1 tablet by mouth daily., Disp: [...] me: No Counselor- yes - Jorge-Kelsie Hodge Any use of opioid or any other drug that isn't prescribed for you and is unknown to me: No AOD: stimulant use disorder IUDS: Labs: Reviewed Yes POCT ALERE DRUG SCREEN Order: [id number] Status: In process Visible to patient: No [...] negative Nortripyline (TCA), poct negative Social- at [facility] till this Month, will stay another house [...] Lan Jacobs DO documented in this encounter [facility] 01-16-2023 Discharge summary Note Date/Time January 16, 2023 9: 32am [facility] EN[facility] [address] [place] [address] Discharge Summary Signed Patient: Zack Jameson MR#: [id number] : 1990 Acct:[id number] Age/Sex: 32 / F Adm Date: 3 Loc: Room: [address] [place] [address]: Mirza Duff MD Copies to: [...] OD. Per records, patient has been at [facility] in [facility] her ance and has been [...] on probation for drugcharges and is facing mcc time.Oriented to the unit, policy's and procedures,patient [...] recovery center. Living: Currently lives [facility] the [facility] in [place]. Employment: Unemployed. Relationships: Strong relationship with fianc? [...] Instructions: Important Contact Information You can call [facility] at [phone] any time day or night if you have emergent questions or question regarding discharge instructions. If at any time you are feeling an increase inyour psychiatric symptoms, call your physician or behavioral healthcare provider. If any time you have thoughts of harming yourself or others contact one of the following: Call 8 (available 07/11) Crisis Text Line (available 07/11) text 4HOPE to [phone] [facility] Qire Line (available 8 a.m. Midnight) call [phone] ([phone]) Regular Diet No Activity Restrictions Instructions: Depression, Adult (DC), [facility] Behavioral Health DC Instructions Prescriptions: [...] Days Qty: 30 0RF Follow Up: [facility] Qire Line [Outside] [facility] [Physician] - ( to manage all care ) Documented By: Harrison Fuller MD 01/16/23 0932 Signed By: <Electronically signed by Harrison Fuller MD> 01/16/23 1409 [facility] Work Phone: 1(330) 884-344810-01-2023 Progress note Author Mirza martinez [facility] January 15, 2023 6:25am Note Date/Time January 15, 2023 6: 26am [facility] [address] [place] [address] Psychiatry Progress Note Signed Patient: Zack Jameson MR#: [id number] : 1990 Acct:[id number] Age/Sex: 32 / F Adm Date: 3 Loc: Room: [address] [place] [address] Type : ADM IN Attending Dr: Mirza Duff MD Copies to: ~ Date of Service: 01/15/2023 Subjective Subjective Narrative: Zack Jameson said she is working on regulating her emotions. She is worried about her probation indicating that her housing officer is strict. She is worried about violating her probation and ending up in mcc. She has a class tomorrow and does not want to miss it. She attends IOP at [facility] and wants to go back there when [...] and denied SI/HI. -Anticipate discharge tomorrow to [facility] -Continue Paxil 20mg PO QAM and [...] Status: Acute Documented By: Mirza Duff MD 621 Signed By: <Electronically signed by Mirza Duff MD> 01/15/23 06 [facility] Work Phone: 1(465) 762-371409-30-2023 History and physical note Author Mirza martinez [facility] January 14, 2023 9:16am Note Date/Time January 14, 2023 9:16am [facility] [address] [place] [address] Psychiatry H&P Signed Patient: Zack Jameson MR#: [id number] : 1990 Acct:[id number] Age/Sex: 32 / F Adm Date: 3 Loc: Room: [address] [place] [address] Type: ADM IN Attending Dr: Mirza Duff [...] OD. Per records, patient has been at [facility] in [facility] her ance and has been [...] probation for drug charges and is facing mcc time.Oriented to the unit, policy's and procedures,patient [...] recovery center. Living: Currently lives [facility] the [facility] [place]. Employment: Unemployed. Relationships: Strong relationship with fianc? [...] strong, equal bilaterally. CNXII: Tongue protrusion midline [facility] Medical History (Updated 01/14/23 @ 08:48 by [...] trailer with pieter.Currently boyfriendand her are at [facility] in [place], [place] for substance abuse. Meds Medications and [...] psychiatric therapy. Pt is in rehab at [facility] for substance abuse. Denies SI, HI, or [...] signed by Mirza Duff MD> 01/14/23 0916 [facility] Work Phone: 1(732) 852-575407-17-2023 Hospital Discharge instructions Patient Education 10/31/2022 17:18:07 Gastrointestinal Bleeding, Vnvo-si-Bepx Gastrointestinal Bleeding Gastrointestinal (GI) bleeding is bleeding [...] hospital. Follow these instructions at home: Take amxe-pzo-hmzexnl and prescription medicines only as told by [...] 01/10/2009 Document Revised: 11/14/2018 Document Reviewed: 11/14/2018 [facility] Patient Education [place]. Follow Up Care 10/31/2022 04:14:44 With:AGNES SRIVASTAVA MD Address: [address] [place] [address] [place] [address] [phone] When:5 to 7 days With:Call MARY New Pt. Refferral [phone] Address:Unknown When:1-2 days [facility] 07-17-2023 Note Discharge Instructions Thank you for allowing [facility] to assist you with your healthcare needs. The following is importantdischarge information regarding your hospital visit. What to do next Follow Up Appointments Follow Up with AGNES SRIVASTAVA MD When Within 5 to 7 days Where: [address] [place] [address] [place] [address] [phone] Follow Up with Call MARY Orta Pt. Refferral [phone] When Within 1-2 days The Following Activity [...] a day Duration: 30 Days Pickup at [facility] 172 Changed ferrous sulfate (ferrous sulfate 324 mg (65 mg elemental iron) oral delayed release tablet) 1 tab(s) by mouth Monday / Monday / Monday Duration: 30 Days Pickup at [facility] 172 Unchanged ascorbic acid (Vitamin C 500 mg oral tablet) 2 tab(s) by mouth Once a day Pharmacy Information [place] [address]: [address] [place], [place] [phone] What How Much When Comments Stop Taking [...] hospital. Follow these instructions at home: Take zokx-eyr-nnvdsrl and prescription medicines only as told by [...] 01/10/2009 Document Revised: 11/14/2018 Document Reviewed: 11/14/2018 [facility] Patient Education 2020 [employer]. Additional Information VACCINATE! IT SAVES LIVES! Members of the community who have not yet received the COVID-19 vaccine and would like to receive it can visit one of [facility] vaccine clinics. There are many vaccine clinic locations within the [facility]. For locations and available times, please visit https://gettheshot.coronavirus.[place].gov/. It is important to note that some COVID mobile vaccine clinics are held outdoors and may be canceled in rainy or stormy conditions. To learn more about pediatric vaccinations (ages 5-11), we invite you to visit the [facility] webpage. https://www.[facility].org/pages/7184-Qdvmn-Xlvagoaatdq-Qpamwmaxaq-Ipitt-Hbr stions.htmlTo learn more about the COVID-19 vaccine, we invite you to visit the CDC website for a list of frequently asked questions.https://www.cdc.gov/coronavirus/2019-ncov/vaccines/faq.html [facility] Patient Portal Access Instructions: Stay connected with your healthcare team and access your personal medical information anytime with the [facility] Patient Portal. Please follow the directions below to create your [facility] account: 1.Access the email account you provided upon registration to the hospital/physician office.2.Look for an invitation email from [facility].3.Open the email and access the invitation link: [facility] to [facility].4.Fill in the required carlton to create your account. To access your account, visit [email or web address]. Click the blue button labeled Access Patient Portal and then log in with the username and password that you created in the steps above. You will be able to view your test results, lab results, a summary of your visits, upcoming appointments and more. There is also a convenient messaging option where you can send secure messages to your p rovider. In addition, you will have the ability to download any documents or summaries to your computer and/or send the information securely to a physician. Remember that your healthcare information is confidential, so carefully consider who you will allowto register on the [facility] Patient Portal for access to your information. You can also access the [facility] Patient Portal on the [facility] yocasta. Simply click on Patient Portal and then log into your account. If you would like to receive a full copy of your medical records, please contact the [facility] Medical Records Department by calling [phone], Monday through Monday between 8 a.m. and [...] Call your local pharmacy or go to http://bit.ly/1H9Ph3w to find one close to you.3.Make use of household items: Use cat litter or old coffee grounds to dispose medications if other options arenot available. Mix your drugs with these household products, seal them in an airtight container andthrow it into the garbage. Call [facility]: [phone] to be sure your drugs can be [...] COPY. Signatures Patient Education Materials Gastrointestinal Bleeding, Mopp-va-Pawf Medication Leaflets My discharge plan and instructions have been reviewed and explained to me and I,ZACK JAMESON understand my current condition and have read and understand these discharge instructions. I have received a written copy of the plan/instructions. If I have questions, I am aware that I should contact my d octor. 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/Regional Operations Manager Signature: Date/Time: Relationship to Patient: Witness Name/Signature: Date/Time: [facility]fow[facility]gv13-12-2207 Discharge summary Date of Service 10/31/2022 Discharge [...] Oral, BID, # 60 tab(s),0 Refill(s), Pharmacy: [facility], 152.4, cm, 10/31/22 4:22:00 EDT, Height Ordered: ferrous sulfate 324 mg (65 mg elemental iron) oral delayed release tablet,Dose : 324 mg = 1 tab(s), Oral, Mon/Mon/Fri, X 30 day(s), # 13 tab(s), 0 Refill(s), 11/30/22 16:48:00 EDT, Pharmacy:[facility], 152.4, cm, 10/31/22 4:22:00 [...] gastric bypass who presents as transfer from [facility] for GI bleed. Per admitting provider patient [...] Within 5 to 7 days Where: [address] [facility] [place] [address] [phone] Follow Up with Call AMB New Pt. Refferral [phone] When Within 1-2 days Follow Up Appointments [...] DIMPLE TAVERAS MD on 10/31/2022 04:54 PM [facility] HospitalZusstaov20-95-1403 Nurse Progress note Patient requesting to be discharged. Dr. Taveras notified and stated patient would have to leave AMA.Paper given to nurse to discuss with patient. Digitally Signed by Sena Perez RN on 10/31/2022 04:44 PM [facility] HospitalDqmtvfsi04-36-9105 Gastroenterology Progress note Date of Service Discussed [...] GARRICK QUIROGA PA-C on 10/31/2022 03:27 PM [facility] HospitalWukzthob75-43-3078 Evaluation + Plan noteExtracted from: Title:History and [...] Hemoglobin 10/31/22 * Hemoglobin/Hematocrit - Panel 10/31/22 [facility] 07-17-2023 Anesthesiology Progress note Patient: ZACK [...] SHARONDA VAUGHN MD on 10/31/2022 12:54 PM [facility] [id number] Procedure note Procedure: Upper endoscopy Indication: Anemia [...] Should follow-up as an outpatient with her security operations center analyst to consider colonoscopy in the outpatient setting. Await pathology results. In the interim, continue with omeprazole 40 mg daily or PPI therapy daily. We will continue to follow. Digitally Signed by AGNES SRIVASTAVA MD on 10/31/2022 12:29 PM [facility] HospitalNygdprzq43-62-1362 Procedure note Procedure: Upper endoscopy Indication: Anemia [...] Should follow-up as an outpatient with her security operations center analyst to consider colonoscopy in the outpatient setting. Await pathology results. In the interim, continue with omeprazole 40 mg daily or PPI therapy daily. We will continue to follow. Digitally Signed by AGNES SRIVASTAVA MD on 10/31/2022 12:29 PM [facility] HospitalQefsweup23-82-3176 Procedure note Procedure: Upper endoscopy Indication: Anemia [...] Should follow-up as an outpatient with her security operations center analyst to consider colonoscopy in the outpatient setting. Await pathology results. In the interim, continue with omeprazole 40 mg daily or PPI therapy daily. We will continue to follow. Digitally Signed by AGNES SRIVASTAVA MD on 10/31/2022 12:29 PM [facility] HospitalUgxgpizv22-67-2946 Gastroenterology Consult note Date of Service 10/31/2022 [...] EGD with cauterization of esophageal ulcers at [facility]. She has not followed up with GI [...] GARRICK QUIROGA PA-C on 10/31/2022 10:20 AM [facility] HospitalChqmgxct97-18-2088 Anesthesiology Progress note Patient: ZACK JAMESON Age: [...] Medical Bipolar 1 disorder / SNOMED CT 6013306330 / Confirmed Overdose / SNOMED CT 30141002 / Confirmed Substance abuse / SNOMED CT 013519532 / Confirmed, Active Problems (3) Bipolar 1 disorder Overdose Substance abuse Histories Past Medical History: Active Substance abuse (742035729) Procedure history: No active procedure history items have been selected or recorded. Social History Social & Psychosocial Habits No Data Available . Physical Examination Measurements from flowsheet : Measurements 10/31/2022 4:22 EDT Height 152.4 cm Height in inches 60 inch(es) Admission Weight 100.2 kg Weight Lbs 220.4 lb Mentor Body Weight 45.50 kg Type of Scale [...] records, Reviewed prior records. Assessment and Plan [place] [employer] Anesthesiologists (ASA) physical status classification: [...] SHARONDA VAUGHN MD on 10/31/2022 11:45 AM [facility] [id number] Gastroenterology Consult note Date of Service 10/31/2022 [...] EGD with cauterization of esophageal ulcers at [facility]. She has not followed up with GI [...] GARRICK QUIROGA PA-C on 10/31/2022 10:20 AM [facility] HospitalQmsfdlpj89-35-3380 Nurse Progress note Patient arrived from with blood running. Blood finished at 0416. Vitals were taken and recorded.No signs or symptoms of a reaction noted. Digitally Signed by Melvi Malone RN on 10/31/2022 04:30 AM [facility] HospitalKbbtvafo43-48-6992 History and physical note Date of Service [...] AIDA MALONE DO on 10/31/2022 04:57 AM [facility] HospitalAmbaaxhr38-57-5847 NoteName of Caller: Zack Contact Reason for Appointment: Excess skin removal consultation Office Name: Plastics Medication Refills need, if any: NA Medication Name: [facility]07-14-2022 NoteHospitalist Discharge Summary Zack Annabel Jameson : 1990 Admit date: 10/24/2021 Discharge date: [...] No obvious focal neurologic deficits. Recent Labs 10/26/2192110/27/213 10/28/21 0640 WBC 4.2 5.5 6.4 HGB 7.2* 7.9* 8.2* PLT 248 276 256 Recent Labs 10/26/2192110/27/21 0453 10/28/21 0640 NA 141 143 140 [...] AM No results found for: PHART, PO2ART, YEG8IWF No results for input(s): INR in the [...] Your Medications These medications were sent to [facility] [address] [place] [address] - [phone] - F [phone] [address] [facility] [address] omeprazole 20 MG (more content not included)...[facility]07-13-2022 BalZack Jameson 10/27/2021 10:34 AM Procedure Performed: EGD [...] primary care provider on file. Gabriel Landaverde, [facility] Assessments Information [facility] Work Phone: Evaluation note* Diagnosis Onset Date Resolution Status Depression acute Substance abuse acute [facility] Work Phone: Evaluation noteNo assessment information available [facility] Work Phone: Evaluation note* Diagnosis Stimulant use disorder- Primary Depression, unspecified depression type Gastroesophageal reflux disease, unspecified whether esophagitis present [facility] Excess skin of abdomen- Primary Unspecified hypertrophic and atrophic condition of skin Depression, unspecified depression type [facility] Diagnosis Excess skin of abdomen- Primary Unspecified hypertrophic and atrophic condition of skin [facility] Diagnosis Excess skin of abdomen- Primary Unspecified hypertrophic and atrophic condition of skin S/P gastric bypass Bariatric surgery status [facility] Narrative No data available for this section [facility] Hospital Discharge instructions Additional Instructions Important Contact Information You can call [facility] at [phone] any time day or night if you have emergent questions or question regarding discharge instructions. If at any time you are feeling an increase in your psychiatric symptoms, call your physician or behavioral healthcare provider. If any time you have thoughts of harming yourself or others contact one of the following: Call 8-8 (available 07/11) Crisis Text Line (available 07/11) text 4HOPE to [phone] [facility] Hope Line (available 8 a.m. Midnight) call [phone] ([phone]) Regular Diet No Activity [facility]ions[facility] Work Phone: Reason for referral (narrative)* Consultation (Routine) - New Request Specialty Diagnoses / Procedures Referred By Emeka roe Referred To Contact Plastic Surgery Diagnoses Depression, unspecified depression type Lan Jacobs DO [address] [place] [address] Ibeth Napier MD [address] [address] Referral ID Status Reason Start Date Expiration Date V isits Requested Visits Authorized [id number] New Request 05/18/2023 06/11/2024 1 1 [facility] for referral (narrative)* Consultation (Routine) - New Request Specialty Diagnoses / Procedures Referred By Emeka roe Referred To Contact Plastic Surgery Diagnoses Excess skin of abdomen Nadiya Barrios PAC [address] [place] [address] Shivani Rangel MD [address] [facility] [address] [place] [address] Referral ID Status Reason Start Date Expiration Date V isits Requested Visits Authorized [id number] New Request 07/25/2023 08/18/2024 1 1 [facility] (narrative)No reason for referral information availableWAdena Regional Medical Center Work Phone: Summary Purpose Family History No [...] 2020 2:37pm Advanced Directive on File No [employer] 2020 2:37pm Advance Directive Response Recorded Date/ Time Advance Directives No December 5:13pm Advance Directive Response Recorded Date/ Time Living Will No February 09 3:46pm Power of Blaster Helper No February 09, 2023 3:46pm Latest Code [...] Date EXTRA SKIN AFTER WEIGHTLOSS November 01, 025 9:09am Additional Source Comments INFORMATION SOURCE (unrecogn ized section and content) DATE CREATED AUTHOR 10/10/2017 [facility] DATE CREATED AUTHOR AUTHOR'S ORGANIZ ATION 03/29/2018 [facility] DATE CREATED AUTHOR AUTHOR'S ORGANIZ ATION 03/29/2018 [facility] DATE CREATED AUTHOR AUTHOR'S ORGANIZ ATION 03/30/2018 [facility] [facility] DATE CREATED AUTHOR AUTHOR'S ORGANIZ ATION 01/30/[address] [facility] DATE CREATED AUTHOR AUTHOR'S ORGANIZ ATION 02/07/2022 [facility] DATE CREATED AUTHOR AUTHOR'S ORGANIZ ATION 10/10/2022 [facility] DATE CREATED AUTHOR AUTHOR'S ORGANIZ ATION 11/29/2022 [facility] DATE CREATED AUTHOR AUTHOR'S ORGANIZ ATION 02/12/2023 [facility] ([place]) DATE CREATED AUTHOR AUTHOR'S ORGANIZ ATION 04/21/2023 [facility] DATE CREATED AUTHOR AUTHOR'S ORGANIZ ATION 05/17/2023 [facility] DATE CREATED AUTHOR AUTHOR'S ORGANIZ ATION 05/20/2023 [facility] DATE CREATED AUTHOR AUTHOR'S ORGANIZ ATION 08/22/2023 [facility] DATE CREATED AUTHOR AUTHOR'S ORGANIZ ATION 08/27/2023 [facility] DATE CREATED AUTHOR AUTHOR'S ORGANIZ ATION 09/22/2023 [facility] DATE CREATED AUTHOR AUTHOR'S ORGANIZ ATION 11/18/2023 [facility] DATE CREATED AUTHOR AUTHOR'S ORGANIZ ATION 07/01/2024 [facility] DATE CREATED AUTHOR AUTHOR'S ORGANIZ ATION 07/09/2024 [facility] DATE CREATED AUTHOR AUTHOR'S ORGANIZ ATION 10/18/2024 [facility] DATE CREATED AUTHOR AUTHOR'S ORGANIZ ATION 11/16/2024 [facility] Patient Care team informatio n (unrecognized [...] Active Luis Villar MD Emergency Provider Active Lead Coater Relationship Specialty Start Date End Date Lan Jacobs DO PCP - General General Surgery 01/23/23 Lead Coater Relationship Specialty Start Date End Date Lan Jacobs DO PCP - General General Surgery 01/23/23 Lead Coater Relationship Specialty Start Date End Date Lan Jacobs DO PCP - General General Surgery 01/23/23 Team Status: Active Member Role Status Dates No Primary Care Physician Family Provider Active Falguni Shanks , HOSPICE REGISTERED NURSE-C Primary Care Provider Active Team Status: Inactive Member Role Status Dates Falgunidona Garciahocristine , HOSPICE REGISTERED NURSE-C Primary Care Provider Active Start: August 27, 2024 End: August 27, 2024 Falgunidona Shanks , HOSPICE REGISTERED NURSE-C Attending Provider Active Start: August 27, 2024 End: August 27, 2024 Lead Coater Relationship Specialty Start Date End Date Lan Jacobs DO PCP - [facility] General Surgery 01/23/23 Team Status: Active Member Role/Relationship Status Dates No Primary Care Physician Family Provider Active Falguni Shanks , HOSPICE REGISTERED NURSE-C Primary Care Provider Active Team Status: Inactive Member Role/Relationship Status Dates Falgunidona Garciahocristine , HOSPICE REGISTERED NURSE-C Primary Care Provider Active Start: August 27, 2024 End: August 27, 2024 Falgunidona Shanks , HOSPICE REGISTERED NURSE-C Attending Provider Active Start: August 27, 2024 End: August 27, 2024 Team Status: Inactive Member Role/Relationship Status Dates Falgunidona Garciahocristine , HOSPICE REGISTERED NURSE-C Primary Care Provider Active Start: November 01, 2024 End: November 01, 2024 Falgunidona Shanks , HOSPICE REGISTERED NURSE-C Referring Provider Active Start: November 01, 2024 [...] bdomen Specialty Diagnoses / Procedures Referred By Contkrystal t Referred To Contact Plastic Surgery Diagnoses Depression, unspecified depression type Lan Jacobs DO [address] [place] [address] Ibeth Napier MD [address] [place] [address] Referral ID Status Reason Start Date Expiration Date V isits Requested Visits Authorized [id number] New Request 05/18/2023 06/11/2024 1 1 Reason Comments New Patient Follow-up See about a year ago Specialty Diagnoses / Procedures Referred By Contac t Referred To Contact Plastic Surgery Diagnoses Excess skin of abdomen Nadiya Barrios PA-C [address] [place] [address] Phone: tel: fax: Shivani Rangel MD [address] [place] [address] Phone: tel: fax: Referral ID Status Reason Start Date Expiration Date V isits Requested Visits Authorized [id number] New Request 07/25/2023 08/18/2024 1 1 Reason [...] BE BASED ON THE PRIMARY CLINICAL RECORDS. [employer] provides no warranty or guarantee of the accuracy or completeness of information in this document.
[2024-11-19 22:08] LABS: Hematocrit 40.6 % (37-47); Hemoglobin 14.3 g/dL (12.0-15.0); Immature Granulocytes Count 0.020 X10^3/uL (0.0-0.0); Mean Corp Hgb Conc 35.2 g/dL (32-36); Mean Corpuscular Volume 91.6 fL (81-99); Mean Platelet Vol. 9.1 fl (6.2-12.0); NRBC Flagged by Analyzer 0 % (0-5); Platelet Count 303 K/mm3 (150-450); RBC Distribution Width CV 12.5 % (11.6-14.6); RBC Distribution Width SD 41.6 fl (35.1-43.9); Red Blood Count 4.43 M/mm3 (4.2-5.4); White Blood Count 10.9 K/mm3 (4.4-11.0)
[2024-11-19 22:21] LABS: Internal QC Validated? YES +Cl - CLEAR BKGD; Pregnancy, Serum, hCG Quali. NEGATIVE Negative; Record Kit Lot#, Serum Preg. 962302
[2024-11-19 22:25] LABS: Alcohol, Blood (Medical)-Serum < 10.1 mg/dL (<=10.0); Anion Gap 12 (5-15); BUN 11 mg/dL (4-19); BUN/Creat Ratio 20.0 RATIO (10-20); Calcium,Total 9.5 mg/dL (7.6-11.0); Carbon Dioxide 20.6 mmol/L (21.0-32.0); Chloride 103 mmol/L (98-108); Estimated Creatinine Clearance 145.05 ml/min (50-250); Glucose 92 mg/dL (70-99); Potassium 3.7 mmol/L (3.3-5.1)
[2024-11-19 22:27] LABS: Barbiturate Urine NEGATIVE (< 200 ng/mL); Benzodiazepine Urine NEGATIVE (< 200 ng/mL); PCP Urine NEGATIVE (< 25 ng/mL); THC Urine NEGATIVE (< 50 ng/mL)
--- NOTE | 2024-11-20 00:16 | ED.RN ---
pt states she takes 100mg topamax @ night. confirmed with pill bottles that pt brought with her.
[2024-11-20 01:00] VITALS: BP 113/58; PULSE 89; RESP 16; O2SAT 96
--- NOTE | 2024-11-20 06:55 | ED.RN ---
[facility], physicians transport arrives at this time and they were not supposed to be here until 0900. Niraj states that is fine if patient leaves [facility] at this time and arrives earlier than expected. Report given to transport. Patient's locked box with her medications, jewelry and money given to tranport team.
[2024-11-20 07:01] VITALS: BP 121/61; PULSE 84; RESP 16; TEMP 36.6; O2SAT 96
== END 2024-11-20 07:03 ==
LOC: ED 22:03
PROVIDERS: Emergency Provider Emergency Medicine; PCP Nurse Practitioner Family; Visit Provider Emergency Medicine
DX: R45.851 Suicidal ideations (principal); Z87.891 Personal history of nicotine dependence; Z79.84 Long term (current) use of oral hypoglycemic drugs; Z79.899 Other long term (current) drug therapy
CPT/HCPCS: 80048; 80307; 82077; 84703; 85025; 99285; A4216

== ENCOUNTER → 2024-12-05 | Outpatient (CLI) | payer MEDICAID, SELFPAY ==
[2024-12-05 16:28] LABS: Albumin, Serum 4.2 g/dL (3.5-5.0); Ferritin 95 ng/mL (22-378)
[2024-12-07 04:07] LABS: Prealbumin 21 mg/dL (14-35)
[2024-12-11 15:09] LABS: Cotinine Screen Blood <1.0 ng/mL (.)
== END | disposition home or self-care (01) ==
LOC: LAB 14:54
PROVIDERS: PCP Nurse Practitioner Family; Referring Provider Surgery Plastic and Reconstructive Surgery; Visit Provider Surgery Plastic and Reconstructive Surgery
DX: Z00.8 Encounter for other general examination (principal); M79.3 Panniculitis, unspecified
CPT/HCPCS: 80323; 36415; 82040; 82728; 84134; G0480